=== PATIENT | male | born 1945 | race Caucasian/White ===

== ENCOUNTER 2016-07-30 21:21 | Inpatient (IN) | payer BC, OTHER ==
[~2016-07-30] VITALS: Ht 182.9 cm; Wt 92.1 kg
[~2016-07-30 21:21] MED LIST: CARV6.252 PO; CYAN500T PO; DIGO30TA PO; DIPHCRE TOP; DULO60CA44 PO; FERR-24 PO; FRS/40 PO; GLC/500 PO; HYDR-4383 PO; INSDGI SC; LEVO25TA5 PO; MORP15TA PO; NRN300 PO; NUTR-468; PANT1TAB48 PO; RIVA1TAB4 PO; SILD100T PO; TAMS0.4C38 PO; TRAZ50TA35 PO
[2016-07-30] MEDS ORDERED: ALBUT/IPRATROP 3MG/0.5MG NEB 3 ML VIAL INH STA (21:35)
[2016-07-30] MEDS ORDERED: METHYLPREDNISOLONE 125 MG VIAL IV STA (21:47)
[2016-07-30] MEDS ORDERED: MoRPHine SULFATE 4 MG/ML 1 ML CARP\\VIAL IV STA (21:47)
[2016-07-30] MEDS ORDERED: LEVAQUIN 750MG / 150ML D5W IV STA (22:06)
--- NOTE | 2016-07-30 22:12 | DIAGNOSTIC IMAGING REPORT ---
SINGLE VIEW CHEST CLINICAL HISTORY: Dyspnea. Atypical chest pain. FINDINGS: An AP, portable, upright chest radiograph is compared to study dated 04/30/2016. The examination is degraded by portable technique and patient rotation. The heart is enlarged and there is atherosclerotic calcification of the thoracic aorta. There is pulmonary vascular congestion. Perihilar airspace opacities are identified. Small pleural effusions are noted and there is bibasilar consolidation. No pneumothorax is seen. The skeletal structures are osteopenic. The bony thorax is grossly intact. Fusion hardware is present in the lower cervical region. IMPRESSION: 1. Cardiomegaly with evidence of congestive failure. 2. Perihilar airspace opacities are identified and likely represent interstitial edema. 3. There are small pleural effusions and bibasilar consolidation. This likely represents atelectasis. Cortical clinically for evidence of superimposed pneumonia. Electronically signed by: Patrice Velásquez M.D. 07/30/2016 10:11 PM Dictated Date/Time: 07/30/2016 10:10 PM
[2016-07-30 22:43] LABS: BASO % 0.1 %; BASO ABS # 0.01 K/uL (0-0.2); COMPLETE YES; EOS % 0.8 %; HEMATOCRIT 28.6 % (42-52); IG% 0.3 %; LYMPH % 8.2 %; LYMPH ABS # 0.92 K/uL (1.2-3.4); MEAN CELL VOLUME 84.4 fL (80-100); MEAN CORPUSCULAR HEMOGLOBIN 27.7 pg (25-34); MEAN CORPUSCULAR HGB CONC 32.9 g/dl (32-36); MEAN PLATELET VOLUME 9.3 fL (7.4-10.4); MONO % 2.4 %; NEUT % 88.2 %; PLATELET COUNT 216 K/uL (130-400); RED BLOOD COUNT 3.39 M/uL (4.7-6.1); WHITE BLOOD COUNT 11.18 K/uL (4.8-10.8)
[2016-07-30] MEDS ORDERED: PIPERACILLIN/TAZOBACTAM 4.5 GM/100ML D5W IV STA (22:44)
[2016-07-30 22:45] LABS: INR 1.8 (0.9-1.1); PARTIAL THROMBOPLASTIN RATIO 1.3; PROTHROMBIN TIME (PATIENT) 20.3 SECONDS (9.0-12.0)
[2016-07-30] MEDS ORDERED: CRFL PO (22:49)
[2016-07-30] MEDS ORDERED: CARV12.52 PO (22:49)
[2016-07-30] MEDS ORDERED: WARF3TAB6 PO (22:49)
[2016-07-30] MEDS ORDERED: INSP SQ (22:49)
[2016-07-30] MEDS ORDERED: ALBINS INH (22:49)
[2016-07-30] MEDS ORDERED: PRED10TA PO (22:49)
[2016-07-30] MEDS ORDERED: FURO-85 PO (22:49)
[2016-07-30] MEDS ORDERED: PLMINSR5 INH (22:49)
[2016-07-30] MEDS ORDERED: SODIENE PR (22:49)
[2016-07-30] MEDS ORDERED: PRLSR20 PO (22:49)
[2016-07-30] MEDS ORDERED: MOML PO (22:49)
[2016-07-30] MEDS ORDERED: ACET325T96 PO (22:49)
[2016-07-30] MEDS ORDERED: AMOX875T PO (22:49)
[2016-07-30] MEDS ORDERED: BISA10SU3 RE (22:49)
[2016-07-30] MEDS ORDERED: PARO1TAB27 PO (22:49)
[2016-07-30] MEDS ORDERED: INSDGIPEN SC (22:49)
[2016-07-30 22:51] LABS: ALT/SGPT 35 U/L (12-78); BLOOD UREA NITROGEN 13 mg/dl (7-18); BUN/CREATININE RATIO 17.6 (10-20); CALCIUM 7.5 mg/dl (8.5-10.1); CARBON DIOXIDE 32 mmol/L (21-32); CHLORIDE 98 mmol/L (98-107); CREATININE 0.72 mg/dl (0.60-1.40); GLUCOSE 340 mg/dl (70-99); POTASSIUM 4.7 mmol/L (3.5-5.1); SODIUM 137 mmol/L (136-145)
[2016-07-30] MEDS ORDERED: CALCIUM GLUCONATE 10% 10 ML VIAL IV STA (22:54)
--- NOTE | 2016-07-30 22:55 | EMERGENCY ROOM VISIT NOTE ---
ED Visit Note First contact with patient: 21:29 This Patient was discussed with the physician commercial lines assistant, SHAUN Schofield. The pertinent historical and physical exam findings were confirmed. I agree with the studies ordered and with the interpretations of these studies. I agree with the disposition and care plan.
[2016-07-30 22:58] LABS: ALKALINE PHOSPHATASE 142 U/L (45-117); AST/SGOT 17 U/L (15-37); CKMB/CK RATIO 8.6 (0-3.0)
[2016-07-30 23:05] LABS: BETA-HYDROXYBUTYRATE 0.95 mg/dL (0.2-2.81)
[2016-07-30 23:59] LABS: INFLUENZA A PCR Neg for Influ A (NEG); INFLUENZA B PCR Neg for Influ B (NEG)
[2016-07-31] VITALS (14 sets, daily range): BP systolic 100–149; BP diastolic 63–79; PULSE 65–104; TEMP 36.3–36.7; O2SAT 95–100; BMI 27.9; BMI 26.7
--- NOTE | 2016-07-31 00:41 | EMERGENCY ROOM VISIT NOTE ---
History First contact with patient: 21:29 Chief Complaint: PAIN (GENERALIZED) Stated Complaint: GENERALIZED PAIN, SOB History of Present Illness The patient is a 70 year old male who presents to the Emergency Room with complaints of generalized weakness, generalized pain, increasing shortness of breath for the past few days he was just discharged from [facility] for pneumonia and pleural effusions. He is currently on Augmentin. Patient was unable to care for himself at home and called 911. He states he is unable to ambulate. Patient states he normally wears oxygen 3-4 L. Patient states he feels horrible and is unable to care for himself. Patient denies chest pain, abdominal pain, vomiting, diarrhea, headache, neck stiffness. Decreased appetite. Review of Systems See HPI for pertinent positives & negatives. A total of 10 systems reviewed and were otherwise negative. Past Medical/Surgical History Medical Problems: (1) Diabetes (2) Neuropathy Atrial fibrillation on Coumadin, COPD requiring 3-4 L of oxygen, back surgery, GI bleed, BPH, peripheral neuropathy, anemia Social History Smoking Status: Current Every Day Smoker Alcohol Use: occasionally Drug Use: none Marital Status: single Housing Status: lives alone Occupation Status: retired Current/Historical Medications Scheduled Amoxicillin & Pot Clavulanate (Augmentin 875-125 mg), 1 TAB PO BID Bisacodyl (Dulcolax), 5 MG RE UD Budesonide (Pulmicort Respules 0.5MG/2ML), 2 ML INH BID Carvedilol (Coreg), 12.5 MG PO BID Cyanocobalamin (Vitamin B-12), 500 MCG PO DAILY Furosemide (Lasix), 20 MG PO TID Insulin Glargine (Lantus Solostar), 24 SC HS Insulin Human Regular (Novolin R), SQ ACHS Levothyroxine Sodium (Levothyroxine Sodium), 1 TAB PO DAILY Omeprazole (Prilosec), 20 MG PO DAILY Paroxetine (Paxil), 20 MG PO HS Prednisone Tab (Prednisone), 10 MG PO DAILY Sucralfate (Carafate), 10 ML PO ACHS Tamsulosin Hcl (Flomax), 1 CAP PO HS Warfarin Sod (Jantoven), 3 MG PO DAILY Scheduled PRN Acetaminophen Tab (Tylenol), 650 MG PO Q4H PRN for Pain or Fever Albuterol Sulf (Albuterol Sulfate), 3 ML INH Q4H PRN for SOB/Wheezing Magnesium Hydroxide (Milk Of Magnesia), 30 ML PO HS PRN for Constipation Sodium Phosphate/Biphosphate (Fleet Enema), 1 EA [place] DAILY PRN for Constipation Allergies Coded Allergies: No Known Allergies (Unverified , 04/30/16) Physical Exam Vital Signs Date Time Temp Pulse Resp B/P Pulse Ox O2 Delivery O2 Flow Rate FiO2 07/31/16 00:06 98 26 137/92 99 Nasal Cannula 2.0 07/30/16 22:29 105 22 149/98 98 Nasal Cannula 2.0 07/30/16 21:57 97 Nasal Cannula 2.0 07/30/16 21:57 97 Nasal Cannula 2.0 07/30/16 21:34 113 07/30/16 21:29 36.8 110 22 152/101 97 Nasal Cannula 2.0 Physical Exam VITALS: Vitals are noted on the nurse's note and reviewed by myself. Vital signs stable. GENERAL: Elderly male with audible wheeze working to breathe wearing oxygen, nondiaphoretic, well-developed well-nourished. SKIN: The skin was without rashes, erythema, edema, or bruising. There is no tenting of the skin. Capillary reflex less than 2 seconds. HEAD: Normocephalic atraumatic. EARS: External auditory canals clear, tympanic membranes pearly bruno without erythema or effusion bilaterally. EYES: Pupils equal round and reactive to light and accommodation. Conjunctivae without injection, sclerae without icterus. Extraocular movements intact. NOSE: Patent, turbinates without inflammation or discharge. No sinus tenderness. MOUTH: Mucous membranes mildly dry. Pharynx without erythema or exudate. Uvula midline. Airway patent. Tongue does not deviate. NECK: Supple without nuchal rigidity. No lymphadenopathy. No thyromegaly. Cervical spine is nontender. No JVD. HEART: Irregularly irregular mildly tachycardic LUNGS: Diffuse inspiratory and end expiratory wheezes, bi basilar rales. No retractions or accessory muscle use. ABDOMEN: Positive bowel sounds x 4. Normal tympanic percussion. Soft, nontender, without masses or organomegaly. Hamilton sign negative. No guarding or rebound tenderness. MUSCULOSKELETAL: No muscle erythema noted. NEURO: Patient was alert and oriented to person place and time. Normal sensation to light and sharp touch. No focal neurological deficits. Medical Decision & Procedures Laboratory Results 07/30/16 22:04 Red Blood Count 3.39, Mean Corpuscular Volume 84.4, Mean Corpuscular Hemoglobin 27.7, Mean Corpuscular Hemoglobin Concent 32.9, Mean Platelet Volume 9.3, Neutrophils (%) (Auto) 88.2, Lymphocytes (%) (Auto) 8.2, Monocytes (%) (Auto) 2.4, Eosinophils (%) (Auto) 0.8, Basophils (%) (Auto) 0.1, Neutrophils # (Auto) 9.86, Lymphocytes # (Auto) 0.92, Monocytes # (Auto) 0.27, Eosinophils # (Auto) 0.09, Basophils # (Auto) 0.01 07/30/16 22:04 Test 07/30/16 22:04 07/30/16 22:05 07/30/16 22:13 White Blood Count 11.18 K/uL (4.8-10.8) Red Blood Count 3.39 M/uL (4.7-6.1) Hemoglobin 9.4 g/dL (14.0-18.0) Hematocrit 28.6 % (42-52) Mean Corpuscular Volume 84.4 fL (80-100) Mean Corpuscular Hemoglobin 27.7 pg (25-34) Mean Corpuscular Hemoglobin Concent 32.9 g/dl (32-36) Platelet Count 216 K/uL (130-400) Mean Platelet Volume 9.3 fL (7.4-10.4) Neutrophils (%) (Auto) 88.2 % Lymphocytes (%) (Auto) 8.2 % Monocytes (%) (Auto) 2.4 % Eosinophils (%) (Auto) 0.8 % Basophils (%) (Auto) 0.1 % Neutrophils # (Auto) 9.86 K/uL (1.4-6.5) Lymphocytes # (Auto) 0.92 K/uL (1.2-3.4) Monocytes # (Auto) 0.27 K/uL (0.11-0.59) Eosinophils # (Auto) 0.09 K/uL (0-0.5) Basophils # (Auto) 0.01 K/uL (0-0.2) RDW Standard Deviation 48.4 fL (36.4-46.3) RDW Coefficient of Variation 15.8 % (11.5-14.5) Immature Granulocyte % (Auto) 0.3 % Immature Granulocyte # (Auto) 0.03 K/uL (0.00-0.02) Prothrombin Time 20.3 SECONDS (9.0-12.0) Prothromb Time International Ratio 1.8 (0.9-1.1) Activated Partial Thromboplast Time 32.7 SECONDS (21.0-31.0) Partial Thromboplastin Ratio 1.3 Anion Gap 7.0 mmol/L (3-11) Est Creatinine Clear Calc Drug Dose 111.7 ml/min Estimated GFR () 108.8 Estimated GFR (Non- 93.9 BUN/Creatinine Ratio 17.6 (10-20) Calcium Level 7.5 mg/dl (8.5-10.1) Magnesium Level 2.0 mg/dl (1.8-2.4) Total Bilirubin 0.2 mg/dl (0.2-1) Direct Bilirubin < 0.1 mg/dl (0-0.2) Aspartate Amino Transf (AST/SGOT) 17 U/L (15-37) Alanine Aminotransferase (ALT/SGPT) 35 U/L (12-78) Alkaline Phosphatase 142 U/L (45-117) Total Creatine Kinase 72 U/L (39-308) Creatine Kinase MB 6.2 ng/ml (0.5-3.6) Creatine Kinase MB Ratio 8.6 (0-3.0) Troponin I 0.029 ng/ml (0-0.045) Pro-B-Type Natriuretic Peptide 2250 pg/ml (0-900) Total Protein 5.4 gm/dl (6.4-8.2) Albumin 2.4 gm/dl (3.4-5.0) Lipase 203 U/L (73-393) Beta-Hydroxybutyric Acid 0.95 mg/dL (0.2-2.81) Digoxin Level < 0.1 ng/ml (0.8-2.0) Influenza Type A (RT-PCR) Neg for Influ A (NEG) Influenza Type B (RT-PCR) Neg for Influ B (NEG) Bedside Lactic Acid Venous 1.87 mmol/L (0.90-1.70) Medications Administered Medications (Trade) Dose Ordered Sig/Sujatha Route Start Time Stop Time Status Last Admin Dose Admin Albuterol/ Ipratropium (Duoneb) 3 ml NOW STAT INH 07/30/16 21:35 07/30/16 21:42 DC 07/30/16 21:58 3 ML Methylprednisolone Sodium Succinate (Solu-Medrol IV) 125 mg NOW STAT IV 07/30/16 21:47 07/30/16 21:50 DC 07/30/16 22:05 125 MG Morphine Sulfate (MoRPHine SULFATE INJ) 4 mg NOW STAT IV 07/30/16 21:47 07/30/16 21:50 DC 07/30/16 22:05 4 MG Levofloxacin (Levaquin / D5W) 750 mg NOW STAT IV 07/30/16 22:06 07/30/16 22:07 DC 07/30/16 22:29 750 MG Piperacillin Sod/ Tazobactam Sod (Zosyn Iv) 4.5 gm NOW STAT IV 07/30/16 22:44 07/30/16 22:46 DC 07/31/16 00:01 4.5 GM Calcium Gluconate (Calcium Gluconate 10%) 1,000 mg NOW STAT IV 07/30/16 22:54 07/30/16 22:55 DC 07/30/16 23:32 1,000 MG ED Course Prior records/ancillary studies reviewed. Triage Nursing notes reviewed. Additional history obtained from the family. The patient's history was concerning for respiratory difficulties. Differential diagnosis: Etiologies such as infections, reactive airway disease, pneumonia, pneumothorax , COPD, CHF, cardiac ischemia, pulmonary embolism, musculoskeletal, gastrointestinal, as well as others were entertained. Physical examination: As above. ER treatment provided: Nebulizer, morphine, Solu Medrol, Levaquin, Zosyn On reassessment the patient felt better. Diagnostic interpretation by me: The electrocardiogram was regularly irregular with no acute ST-T wave changes. Ventricular rate of 112, impression atrial fibrillation with RVR interpreted by myself The labs revealed leukocytosis, mild anemia, elevated lactic acid. Hyperglycemia without DKA. Negative flu I did obtain the records from [place] and patient's white count has increased. He had a pleurocentesis done the other day and culture results are still pending Imaging studies: Chest x-ray as above. SINGLE VIEW CHEST CLINICAL HISTORY: Dyspnea. Atypical chest pain. FINDINGS: An AP, portable, upright chest radiograph is compared to study dated 04/30/2016. The examination is degraded by portable technique and patient rotation. The heart is enlarged and there is atherosclerotic calcification of the thoracic aorta. There is pulmonary vascular congestion. Perihilar airspace opacities are identified. Small pleural effusions are noted and there is bibasilar consolidation. No pneumothorax is seen. The skeletal structures are osteopenic. The bony thorax is grossly intact. Fusion hardware is present in the lower cervical region. IMPRESSION: 1. Cardiomegaly with evidence of congestive failure. 2. Perihilar airspace opacities are identified and likely represent interstitial edema. 3. There are small pleural effusions and bibasilar consolidation. This likely represents atelectasis. Cortical clinically for evidence of superimposed pneumonia. Electronically signed by: Patrice Velásquez M.D. Consultation: A consultation was placed with Dr Poon, hospitalist. The case was discussed and diagnostics were reviewed. The patient was evaluated in the ER for further treatment. This appears to be consistent with pneumonia and COPD exacerbation. Patient was still working to breathe. He had a CTA done yesterday that was negative for PE per chart review from [place]. I feel like it is unlikely that he would have a PE now despite his INR be mildly subtherapeutic. His symptoms seem most consistent with pneumonia and COPD. He felt better to be medicated as above. He is unable to care for himself at home. He is quite weak. He will be evaluated by medicine for possible admission. He had a leukocytosis and elevated lactic. Broad spectrum antibiotics were written for the cultures are pending. By the evaluation outlined above emergent etiologies such as CHF, cardiac ischemia, pulmonary embolism, pneumothorax, musculoskeletal, serious bacterial infections, as well as others were deemed relatively unlikely. The pt informed about the findings as listed above. All questions were answered and pleased with the treatment. case reviewed with my Attending Medical Decision As above [place] Drug Monitoring Program Search Results: patient reviewed within database, see additional documentation (patient has received multiple narcotics in the past) Impression Primary Impression: Pneumonia Additional Impressions: COPD exacerbation Hyperglycemia Anemia Subtherapeutic international normalized ratio (INR) Departure Information Dispostion Being Evaluated By Hospitalist Condition FAIR Referrals No Doctor, Assigned (PCP) Patient Instructions My [facility] Problem Qualifiers Primary Impression: Pneumonia Pneumonia type: due to unspecified organism Laterality: bilateral Lung location: unspecified part of lung Qualified Codes: J18.9 - Pneumonia, unspecified organism
[2016-07-31] MEDS ORDERED: ALUMINUM/MAGNESIUM/SIMETH (MAALOX MAX) 30 ML UDC PO PRN (01:15)
[2016-07-31] MEDS ORDERED: ONDANSETRON INJ 2 MG/ML 2 ML VIAL IV PRN (01:15)
[2016-07-31] MEDS ORDERED: ALBUTEROL 0.083% NEBU SOLN 3 ML VIAL INH PRN (01:30)
[2016-07-31] MEDS ORDERED: SOD PHOSPHATE/SOD BIPHOSPHATE ENEMA 132 ML BTL PR PRN (01:30)
[2016-07-31] MEDS ORDERED: BISACODYL 10 MG SUPP PR PRN (01:30)
[2016-07-31] MEDS ORDERED: ACETAMINOPHEN 325 MG TAB PO PRN (01:30)
--- NOTE | 2016-07-31 01:39 | History and Physical ---
History & Physical Date & Time of Service: Jul 31, 2016 at 01:34 Chief Complaint: Generalized Pain, Sob Primary Care Physician: No Doctor, Assigned History of Present Illness Source: patient, clinic records, hospital records This is a 70 yo m that is presenting to us with worsening generalize pain, SOBOE with a h/o COPD, recurrent transudative pleural effusions, diastolic CHF, poorly controlled DM. He states that he was recently at [place] (jul 29 2016) and he was found to have PNA and a return of his recurrent left pleural effusion. He was admitted and placed on Zosyn and Levaquin and descalated to Augmentin. He was d/c on the . He was also d/c with 10 mg of prednisone. He states that he is "just getting frustrated because I don't feel I can breathe and my hands hurt so much from my neuropathy. I just feel so agitated and I need help." As per hospital records, thoracentesis results were as follows: Volume- 600 , WBC-52, RBC- 109, Nt -41, Lymph - 14, Kerr- 20, Mesoth- 3, Macro- 22, Glu -107 , LDH- 53, Pro- 0.8. He mentions that this SOBOE has been significantly worsening over the past two months and he has needed multipl thoracentesis to drain the effusions. He also notes that he does have CHF which is treated with lasix and carvedilol. He states that [facility] however he prefers to not take his insulin at home. he has a left sided amputation. 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 Past Medical/Surgical History Medical Problems: (1) Diabetes Status: Chronic (2) Neuropathy Status: Chronic COPD CHF - diastolic Hypothyroidism GI Bleed PVD CVA A Fibb Family History No pertinent family history Social History Smoking Status: Current Every Day Smoker Drug Use: none Marital Status: single Occupational Status: retired Allergies Coded Allergies: No Known Allergies (Unverified , 04/30/16) Home Medications Scheduled Amoxicillin & Pot Clavulanate (Augmentin 875-125 mg), 1 TAB PO BID Bisacodyl (Dulcolax), 5 MG RE UD Budesonide (Pulmicort Respules 0.5MG/2ML), 2 ML INH BID Carvedilol (Coreg), 12.5 MG PO BID Cyanocobalamin (Vitamin B-12), 500 MCG PO DAILY Furosemide (Lasix), 20 MG PO TID Insulin Glargine (Lantus Solostar), 24 SC HS Insulin Human Regular (Novolin R), SQ ACHS Levothyroxine Sodium (Levothyroxine Sodium), 1 TAB PO DAILY Omeprazole (Prilosec), 20 MG PO DAILY Paroxetine (Paxil), 20 MG PO HS Prednisone Tab (Prednisone), 10 MG PO DAILY Sucralfate (Carafate), 10 ML PO ACHS Tamsulosin Hcl (Flomax), 1 CAP PO HS Warfarin Sod (Jantoven), 3 MG PO DAILY Scheduled PRN Acetaminophen Tab (Tylenol), 650 MG PO Q4H PRN for Pain or Fever Albuterol Sulf (Albuterol Sulfate), 3 ML INH Q4H PRN for SOB/Wheezing Magnesium Hydroxide (Milk Of Magnesia), 30 ML PO HS PRN for Constipation Sodium Phosphate/Biphosphate (Fleet Enema), 1 EA [place] DAILY PRN for Constipation Review of Systems Constitutional: No fever Eyes: No worsening of vision ENT: No hearing loss Respiratory: + cough, + dyspnea at rest, + dyspnea on exertion, + shortness of breath, + wheezing, No sputum Cardiovascular: No chest pain Abdomen: No constipation, No diarrhea, No nausea, No pain, No vomiting Musculoskeletal: + joint pain Genitourinary - Male: No hematuria Neurologic: + weakness, No balance problems, No memory loss, No numbness/ tingling Endocrine: + fatigue Hematologic / Lymphatic: + abnormal bleeding/bruising Physical Exam Vital Signs Date Time Temp Pulse Resp B/P Pulse Ox O2 Delivery O2 Flow Rate FiO2 07/31/16 01:17 80 07/31/16 01:00 84 22 100/79 97 Nasal Cannula 2.0 07/31/16 00:06 98 26 137/92 99 Nasal Cannula 2.0 07/30/16 22:29 105 22 149/98 98 Nasal Cannula 2.0 07/30/16 21:57 97 Nasal Cannula 2.0 07/30/16 21:57 97 Nasal Cannula 2.0 07/30/16 21:34 113 07/30/16 21:29 36.8 110 22 152/101 97 Nasal Cannula 2.0 General Appearance: WD/WN, no apparent distress Head: normocephalic, atraumatic Eyes: normal inspection ENT: normal ENT inspection Neck: supple Respiratory/Chest: no respiratory distress, no accessory muscle use, + decreased breath sounds (bilat bases), + crackles (right base), + wheezing ( throughout) Cardiovascular: regular rate, rhythm, no murmur Abdomen/GI: normal bowel sounds, non tender, soft Back: normal inspection Extremities/Musculoskelatal: no calf tenderness, no pedal edema, normal range of motion Neurologic/Psych: alert, oriented x 3 Skin: normal color, warm/dry, no rash Lymphatic: no adenopathy Diagnostics Laboratory Results Results Past 24 Hours Test 07/30/16 22:04 07/30/16 22:05 07/30/16 22:13 07/31/16 01:31 Range/Units White Blood Count 11.18 4.8-10.8 K/uL Red Blood Count 3.39 4.7-6.1 M/uL Hemoglobin 9.4 14.0-18.0 g/dL Hematocrit 28.6 42-52 % Mean Corpuscular Volume 84.4 80-100 fL Mean Corpuscular Hemoglobin 27.7 25-34 pg Mean Corpuscular Hemoglobin Concent 32.9 32-36 g/dl Platelet Count 216 130-400 K/uL Mean Platelet Volume 9.3 7.4-10.4 fL Neutrophils (%) (Auto) 88.2 % Lymphocytes (%) (Auto) 8.2 % Monocytes (%) (Auto) 2.4 % Eosinophils (%) (Auto) 0.8 % Basophils (%) (Auto) 0.1 % Neutrophils # (Auto) 9.86 1.4-6.5 K/uL Lymphocytes # (Auto) 0.92 1.2-3.4 K/uL Monocytes # (Auto) 0.27 0.11-0.59 K/uL Eosinophils # (Auto) 0.09 0-0.5 K/uL Basophils # (Auto) 0.01 0-0.2 K/uL RDW Standard Deviation 48.4 36.4-46.3 fL RDW Coefficient of Variation 15.8 11.5-14.5 % Immature Granulocyte % (Auto) 0.3 % Immature Granulocyte # (Auto) 0.03 0.00-0.02 K/uL Prothrombin Time 20.3 9.0-12.0 SECONDS Prothromb Time International Ratio 1.8 0.9-1.1 Activated Partial Thromboplast Time 32.7 21.0-31.0 SECONDS Partial Thromboplastin Ratio 1.3 Sodium Level 137 136-145 mmol/L Potassium Level 4.7 3.5-5.1 mmol/L Chloride Level 98 98-107 mmol/L Carbon Dioxide Level 32 21-32 mmol/L Anion Gap 7.0 3-11 mmol/L Blood Urea Nitrogen 13 7-18 mg/dl Creatinine 0.72 0.60-1.40 mg/dl Est Creatinine Clear Calc Drug Dose 111.7 ml/min Estimated GFR () 108.8 Estimated GFR (Non- 93.9 BUN/Creatinine Ratio 17.6 10-20 Random Glucose 340 70-99 mg/dl Calcium Level 7.5 8.5-10.1 mg/dl Magnesium Level 2.0 1.8-2.4 mg/dl Total Bilirubin 0.2 0.2-1 mg/dl Direct Bilirubin < 0.1 0-0.2 mg/dl Aspartate Amino Transf (AST/SGOT) 17 15-37 U/L Alanine Aminotransferase (ALT/SGPT) 35 12-78 U/L Alkaline Phosphatase 142 45-117 U/L Total Creatine Kinase 72 39-308 U/L Creatine Kinase MB 6.2 0.5-3.6 ng/ml Creatine Kinase MB Ratio 8.6 0-3.0 Troponin I 0.029 0-0.045 ng/ml Pro-B-Type Natriuretic Peptide 2250 0-900 pg/ml Total Protein 5.4 6.4-8.2 gm/dl Albumin 2.4 3.4-5.0 gm/dl Lipase 203 73-393 U/L Beta-Hydroxybutyric Acid 0.95 0.2-2.81 mg/dL Digoxin Level < 0.1 0.8-2.0 ng/ml Influenza Type A (RT-PCR) Neg for Influ A NEG Influenza Type B (RT-PCR) Neg for Influ B NEG Bedside Lactic Acid Venous 1.87 0.90-1.70 mmol/L Microbiology Results 07/30/16 Blood Culture, Received Pending 07/30/16 Blood Culture, Received Pending Diagnostic Radiology Ct - [place] - No pulmonary emboli - central pulmonary vasculature enlarged - bilat pleural effusions- mod - coronary artery calcification - mitral annular calcification - bilat lower lobe atelectasis or consolidation SINGLE VIEW CHEST CLINICAL HISTORY: Dyspnea. Atypical chest pain. FINDINGS: An AP, portable, upright chest radiograph is compared to study dated 04/30/2016. The examination is degraded by portable technique and patient rotation. The heart is enlarged and there is atherosclerotic calcification of the thoracic aorta. There is pulmonary vascular congestion. Perihilar airspace opacities are identified. Small pleural effusions are noted and there is bibasilar consolidation. No pneumothorax is seen. The skeletal structures are osteopenic. The bony thorax is grossly intact. Fusion hardware is present in the lower cervical region. IMPRESSION: 1. Cardiomegaly with evidence of congestive failure. 2. Perihilar airspace opacities are identified and likely represent interstitial edema. 3. There are small pleural effusions and bibasilar consolidation. This likely represents atelectasis. Cortical clinically for evidence of superimposed pneumonia. Impression Assessment and Plan Documented By: Aniceto Poon This is a 70 yo m with recurrent bilat pleural effusions, COPD, Dm, CHF that is presenting to us with acute hypoxic respiratory failure requiring O2. Acute hypoxic respiratory failure secondary to PNA vs COPD exacerbations vs bilat pleural effusions - please see below for individual management Acute on chronic COPD exacerbation - Duoneb with prn albuterol - continue Pulmicort - Prednisone 50 mg daily- deescalate prn - received 125 mg of Solumedrol in the ED - consider additionally adding tiotropium or something similar on d/c - consult pulmonary PNA , hospital acquired - MRSA/ VRE - Cxr repeat in am - CBC in am - continue Augmentin and adjust medication based on clinical picture, currently stable Recurrent bilat pleural effusions possibly secondary to acute on chronic diastolic CHF vs alternative process such as malignancy - Echo - consider consult with thoracic surgery Chronic Right heel ulceration most likely secondary to neuropathy Wound care consult - consider additionally adding agent such as gabapentin for pain control Uncontrolled DM II - inuslin ISS and lantus - ac/hs BSG Recent H/O severe GI bleed requiring blood transfusion - continue pantoprazole and sucralfate Depression - continue paroxetine PAF - continue his warfarin @ 3 mg - recheck INR in am BPH - continue tamsulosin DVT Prophylaxis warfarin Resident Physician Supervision Note: I was present with [Name of resident] during the history and exam. I discussed the case with the resident and agree with the findings and plan as documented in the note. Any exceptions or clarifications are listed here: Pt seen/examined Clinically he is not volume overloaded at present - lung exam does reveal B/L crackles/wheezing and decreased air at bases Pt is taking Augmentin for PNM diagnosed at [facility] admits to chronic noncompliance for which he blames poor medical care at the [facility] P: Pt is unlikely to improve by continued smoking and medical noncompliance and has requested a degree of placement - assisted living at least We will continue Augmentin and treat for COPD exacerbation As he has what may be reaccumulating effusions, we will also consult Pulmonology as he isnot improving and will require long-term f/u regardless Above discussed with pt and resident Pt Level of Care Telemetry VTE Prophylaxis VTE Risk Assessment Done? Y/N: Yes Risk Level: Moderate Given or contraindicated: Warfarin (Coumadin) Social Service Consult None Apply, Receiving Home Health Note Total Time: Critical Care 30 - 74 minutes
[2016-07-31] MEDS ORDERED: INSULIN GLARGINE SOLOSTAR 100 UNITS/ML 3 ML PEN SC SCH (02:30)
[2016-07-31] MEDS ORDERED: PHARMACY GLYCEMIC MGMT CONSULT PRN (02:39)
[2016-07-31] MEDS ORDERED: INSULIN REGULAR 5 UNITS in SYRINGE 4.95 ML IV SCH (02:45)
[2016-07-31] MEDS: INSULIN ASPART 100 UNITS/ML 3 ML PEN SC SCH ×5 (03:34→22:22)
[2016-07-31 03:39] LABS: BETA-HYDROXYBUTYRATE 1.91 mg/dL (0.2-2.81)
[2016-07-31] MEDS ORDERED: METHYLPREDNISOLONE IV 40 MG in SYRINGE 0 ML IV SCH (06:00)
[2016-07-31] MEDS: LEVOTHYROXINE 25 MCG TAB PO SCH (06:14)
--- NOTE | 2016-07-31 07:25 | DIAGNOSTIC IMAGING REPORT ---
CHEST ONE VIEW PORTABLE CLINICAL HISTORY: soboles pain COMPARISON STUDY: 07/30/2016 FINDINGS: Mild stable cardiomegaly. Subtle increase in density of the hemithoracic and perihilar regions bilaterally. Early developing pulmonary edema is considered. Trace pleural fluid left base. IMPRESSION: Findings suggesting early and/or developing pulmonary edematous change. Trace pleural fluid left base. Electronically signed by: Kaleb Saldaña M.D. 07/31/2016 7:24 AM Dictated Date/Time: 07/31/2016 7:23 AM
[2016-07-31] MEDS: ALBUT/IPRATROP 3MG/0.5MG NEB 3 ML VIAL INH SCH ×4 (07:28→23:10)
[2016-07-31] MEDS ORDERED: AMOXICILLIN/CLAVULANATE TAB 875 MG TAB PO SCH (07:30)
[2016-07-31 07:46] LABS: ESTIMATED AVERAGE GLUCOSE 171 mg/dl; HA1C FLAG Normal (Normal)
[2016-07-31] MEDS ORDERED: ALBUT/IPRATROP 3MG/0.5MG NEB 3 ML VIAL INH SCH (08:00)
--- NOTE | 2016-07-31 08:03 | Family Medicine Progress Note ---
Progress Note Date of Service Jul 31, 2016. Subjective Pt evaluation today including: conversation w/ patient, physical exam, chart review, lab review Voiding: krueger catheter in place No acute overnight events. He states that his breathing has improved since yesterday. Continues to complain of neuropathic pain of UE and LE. He complains of cough but not able to bring up anything. Denies chest pain, nausea, vomiting , abdominal pain, dizziness, headache, or any other additional complaints. Constitutional: No fever Respiratory: + cough, + shortness of breath, No wheezing Cardiovascular: No chest pain Abdomen: No constipation, No diarrhea, No nausea, No pain, No vomiting Male : No dysuria Neurologic: + problem reported (complains of neuropathic pain on b/l UE and LE) Medications Current Inpatient Medications Medications (Trade) Dose Ordered Sig/Sujatha Route Start Time Stop Time Status Last Admin Dose Admin Acetaminophen (Tylenol Tab) 650 mg Q4H PRN PO 07/31/16 01:15 08/30/16 01:14 Al Hydrox/Mg Hydrox/Simethicone (Maalox Max Susp) 15 ml Q4H PRN PO 07/31/16 01:15 08/30/16 01:14 Ondansetron HCl (Zofran Inj) 4 mg Q6H PRN IV 07/31/16 01:15 08/30/16 01:14 Nitroglycerin (Nitrostat Tab) 0.4 mg UD PRN SL 07/31/16 01:15 08/30/16 01:14 Morphine Sulfate (MoRPHine SULFATE INJ) 2 mg Q30M PRN IV 07/31/16 01:15 08/14/16 01:14 Albuterol Sulfate (Ventolin 0.083% 2.5MG/3ML Neb) 2.5 mg Q4H PRN INH 07/31/16 01:30 08/30/16 01:29 Bisacodyl (Dulcolax Supp) 5 mg PRN PRN NV 07/31/16 01:30 08/30/16 01:29 Budesonide (Pulmicort Respules 0.5MG/ 2ML Neb Soln) 1 mg BIDR INH 07/31/16 08:00 08/30/16 07:59 07/31/16 11:35 1 MG Carvedilol (Coreg Tab) 12.5 mg BID PO 07/31/16 09:00 08/30/16 08:59 07/31/16 08:19 12.5 MG Cyanocobalamin (Vitamin B-12 Tab) 500 mcg DAILY PO 07/31/16 09:00 08/30/16 08:59 07/31/16 08:20 500 MCG Furosemide (Lasix Tab) 20 mg TID PO 07/31/16 09:00 08/30/16 08:59 07/31/16 14:56 20 MG Levothyroxine Sodium (Synthroid Tab) 25 mcg DAILYBB PO 07/31/16 06:00 08/30/16 05:59 07/31/16 06:14 25 MCG Magnesium Hydroxide (Milk Of Magnesia Susp) 30 ml HS PRN PO 07/31/16 01:30 08/30/16 01:29 Paroxetine HCl (pAXil TAB) 20 mg HS PO 07/31/16 21:00 08/30/16 20:59 Sodium Biphosphate/ Sodium Phosphate (Fleet Enema) 1 ml DAILY PRN NV 07/31/16 01:30 08/30/16 01:29 Sucralfate (Carafate Susp) 1 gm ACHS PO 07/31/16 07:00 08/30/16 06:59 07/31/16 17:07 1 GM Tamsulosin HCl (Flomax Cap) 0.4 mg HS PO 07/31/16 21:00 08/30/16 20:59 Warfarin Sodium (Coumadin Tab) 3 mg DAILY@1600 PO 07/31/16 16:00 08/30/16 15:59 07/31/16 17:07 3 MG Insulin Aspart (novoLOG ASPART) SLIDING SCALE G... ACHS SC 07/31/16 02:30 08/30/16 02:29 07/31/16 17:13 8 UNITS Albuterol/ Ipratropium (Duoneb) 3 ml Q6R INH 07/31/16 03:00 08/30/16 02:59 07/31/16 14:28 3 ML Miscellaneous Information (Consult Glycemic Management Pharmacy) 1 ea UD PRN N/A 07/31/16 02:39 08/30/16 02:38 Amoxicillin/ Clavulanate Potassium 875 mg 875 mg BIDM PO 07/31/16 07:30 08/07/16 07:29 07/31/16 17:06 875 MG Azithromycin/ Dextrose (Zithromax IV/D5 250ml) 252.5 ml @ 125 mls/hr QD@08 IV 08/01/16 08:00 08/08/16 07:59 Insulin Glargine (Lantus Solostar Pen) 15 unit BID SC 07/31/16 12:00 08/30/16 11:59 07/31/16 12:01 15 UNIT Insulin Aspart (novoLOG ASPART) SLIDING SCALE G... 0000,0400 SC 08/01/16 00:00 08/31/16 00:00 Miconazole Nitrate (Desenex Powder) 1 appln PRN PRN EXT 07/31/16 11:45 08/30/16 11:44 Pantoprazole Sodium (Protonix Tab) 40 mg QAM PO 08/01/16 09:00 08/31/16 08:59 Gabapentin (Neurontin Cap) 300 mg BID PO 07/31/16 21:00 08/30/16 20:59 Prednisone (PredniSONE TAB) 50 mg DAILY PO 08/01/16 09:00 08/31/16 08:59 Objective Vital Signs Date Time Temp Pulse Resp B/P Pulse Ox O2 Delivery O2 Flow Rate FiO2 07/31/16 20:05 36.7 65 18 106/71 97 Room Air 07/31/16 14:28 83 18 99 Nasal Cannula 3.0 07/31/16 12:00 96 Nasal Cannula 4.0 07/31/16 11:43 36.4 87 20 100/69 100 Nasal Cannula 4.0 87 07/31/16 11:38 86 20 99 Nasal Cannula 2.0 07/31/16 08:00 96 Nasal Cannula 4.0 07/31/16 07:37 36.3 97 20 149/76 100 Nasal Cannula 3.0 97 07/31/16 03:11 36.3 70 17 137/77 100 Nasal Cannula 4.0 07/31/16 01:52 36.6 78 22 134/79 97 Nasal Cannula 4.0 07/31/16 01:40 78 19 130/86 96 07/31/16 01:17 80 07/31/16 01:00 84 22 100/79 97 Nasal Cannula 2.0 07/31/16 00:06 98 26 137/92 99 Nasal Cannula 2.0 07/30/16 22:29 105 22 149/98 98 Nasal Cannula 2.0 07/30/16 21:57 97 Nasal Cannula 2.0 07/30/16 21:57 97 Nasal Cannula 2.0 07/30/16 21:34 113 07/30/16 21:29 36.8 110 22 152/101 97 Nasal Cannula 2.0 Physical Exam General Appearance: + mild distress Neck: supple, trachea midline Respiratory/Chest: chest non-tender, + respiratory distress, + decreased breath sounds, + crackles (mostly noted at the base) Cardiovascular: regular rate, rhythm Abdomen: normal bowel sounds, non tender, soft Extremities: non-tender, + pedal edema (trace of edema on the right and 1+ on the left below the knee), + pertinent finding (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, also don't have 4th digit of right hand) Neurologic/Psychiatric: alert, normal mood/affect, oriented x 3 Skin: warm/dry, + pertinent finding (right heel ulcer) Laboratory Results Results Past 24 Hours Test 07/30/16 22:04 07/30/16 22:05 07/30/16 22:13 07/31/16 01:58 Range/Units White Blood Count 11.18 4.8-10.8 K/uL Red Blood Count 3.39 4.7-6.1 M/uL Hemoglobin 9.4 14.0-18.0 g/dL Hematocrit 28.6 42-52 % Mean Corpuscular Volume 84.4 80-100 fL Mean Corpuscular Hemoglobin 27.7 25-34 pg Mean Corpuscular Hemoglobin Concent 32.9 32-36 g/dl Platelet Count 216 130-400 K/uL Mean Platelet Volume 9.3 7.4-10.4 fL Neutrophils (%) (Auto) 88.2 % Lymphocytes (%) (Auto) 8.2 % Monocytes (%) (Auto) 2.4 % Eosinophils (%) (Auto) 0.8 % Basophils (%) (Auto) 0.1 % Neutrophils # (Auto) 9.86 1.4-6.5 K/uL Lymphocytes # (Auto) 0.92 1.2-3.4 K/uL Monocytes # (Auto) 0.27 0.11-0.59 K/uL Eosinophils # (Auto) 0.09 0-0.5 K/uL Basophils # (Auto) 0.01 0-0.2 K/uL RDW Standard Deviation 48.4 36.4-46.3 fL RDW Coefficient of Variation 15.8 11.5-14.5 % Immature Granulocyte % (Auto) 0.3 % Immature Granulocyte # (Auto) 0.03 0.00-0.02 K/uL Prothrombin Time 20.3 9.0-12.0 SECONDS Prothromb Time International Ratio 1.8 0.9-1.1 Activated Partial Thromboplast Time 32.7 21.0-31.0 SECONDS Partial Thromboplastin Ratio 1.3 Sodium Level 137 136-145 mmol/L Potassium Level 4.7 3.5-5.1 mmol/L Chloride Level 98 98-107 mmol/L Carbon Dioxide Level 32 21-32 mmol/L Anion Gap 7.0 3-11 mmol/L Blood Urea Nitrogen 13 7-18 mg/dl Creatinine 0.72 0.60-1.40 mg/dl Est Creatinine Clear Calc Drug Dose 111.7 ml/min Estimated GFR () 108.8 Estimated GFR (Non- 93.9 BUN/Creatinine Ratio 17.6 10-20 Random Glucose 340 70-99 mg/dl Estimated Average Glucose 171 mg/dl Hemoglobin A1c 7.6 4.5-5.6 % Calcium Level 7.5 8.5-10.1 mg/dl Magnesium Level 2.0 1.8-2.4 mg/dl Total Bilirubin 0.2 0.2-1 mg/dl Direct Bilirubin < 0.1 0-0.2 mg/dl Aspartate Amino Transf (AST/SGOT) 17 15-37 U/L Alanine Aminotransferase (ALT/SGPT) 35 12-78 U/L Alkaline Phosphatase 142 45-117 U/L Total Creatine Kinase 72 39-308 U/L Creatine Kinase MB 6.2 0.5-3.6 ng/ml Creatine Kinase MB Ratio 8.6 0-3.0 Troponin I 0.029 0-0.045 ng/ml Pro-B-Type Natriuretic Peptide 2250 0-900 pg/ml Total Protein 5.4 6.4-8.2 gm/dl Albumin 2.4 3.4-5.0 gm/dl Lipase 203 73-393 U/L Beta-Hydroxybutyric Acid 0.95 0.2-2.81 mg/dL Digoxin Level < 0.1 0.8-2.0 ng/ml Influenza Type A (RT-PCR) Neg for Influ A NEG Influenza Type B (RT-PCR) Neg for Influ B NEG Bedside Lactic Acid Venous 1.87 0.90-1.70 mmol/L Bedside Glucose 432 70-99 mg/dl Test 07/31/16 02:45 07/31/16 03:19 07/31/16 06:16 07/31/16 11:20 Range/Units Random Glucose 414 70-99 mg/dl Beta-Hydroxybutyric Acid 1.91 0.2-2.81 mg/dL Bedside Glucose 419 263 415 70-99 mg/dl Test 07/31/16 16:18 07/31/16 18:00 Range/Units Bedside Glucose 151 70-99 mg/dl White Blood Count 12.32 4.8-10.8 K/uL Red Blood Count 3.27 4.7-6.1 M/uL Hemoglobin 9.0 14.0-18.0 g/dL Hematocrit 27.7 42-52 % Mean Corpuscular Volume 84.7 80-100 fL Mean Corpuscular Hemoglobin 27.5 25-34 pg Mean Corpuscular Hemoglobin Concent 32.5 32-36 g/dl Platelet Count 193 130-400 K/uL Mean Platelet Volume 9.0 7.4-10.4 fL Neutrophils (%) (Auto) 90.0 % Lymphocytes (%) (Auto) 3.7 % Monocytes (%) (Auto) 5.9 % Eosinophils (%) (Auto) 0.0 % Basophils (%) (Auto) 0.0 % Neutrophils # (Auto) 11.09 1.4-6.5 K/uL Lymphocytes # (Auto) 0.45 1.2-3.4 K/uL Monocytes # (Auto) 0.73 0.11-0.59 K/uL Eosinophils # (Auto) 0.00 0-0.5 K/uL Basophils # (Auto) 0.00 0-0.2 K/uL RDW Standard Deviation 48.6 36.4-46.3 fL RDW Coefficient of Variation 15.6 11.5-14.5 % Immature Granulocyte % (Auto) 0.4 % Immature Granulocyte # (Auto) 0.05 0.00-0.02 K/uL Sodium Level 138 136-145 mmol/L Potassium Level 4.4 3.5-5.1 mmol/L Chloride Level 100 98-107 mmol/L Carbon Dioxide Level 33 21-32 mmol/L Anion Gap 5.0 3-11 mmol/L Blood Urea Nitrogen 14 7-18 mg/dl Creatinine 0.64 0.60-1.40 mg/dl Est Creatinine Clear Calc Drug Dose 116.2 ml/min Estimated GFR () 114.2 Estimated GFR (Non- 98.5 BUN/Creatinine Ratio 21.9 10-20 Random Glucose 143 70-99 mg/dl Calcium Level 7.9 8.5-10.1 mg/dl Troponin I 0.020 0-0.045 ng/ml Microbiology Results 07/30/16 Blood Culture, Received Pending 07/30/16 Blood Culture, Received Pending 07/31/16 MRSA DNA Surveillance Screen - Final, Complete Specimen Negative for MRSA by DNA Probe Assessment and Plan This is a 70 y/o male with recurrent bilateral pleural effusions, COPD with 2L O2 at home, poorly controlled DM, diastolic CHF, and hypothyroidism presented to the hospital with acute hypoxic respiratory failure. 1. Acute on chronic hypoxic respiratory failure - It could be secondary exacerbation of his COPD and/or pneumonia - Currently on 4L NC O2 - Continue Duoneb INH q6h and Albuterol q4h prn - Continue Pulmicort INH BID - Consulted Pulmonary and appreciate their recommendation 2. COPD exacerbation - Patient is a current smoker - Received 125mg of Solumedrol in ED - Start Prednisone 50mg daily - Continue Duoneb INH q6h with Albuterol q4h prn - Continue Pulmicort INH BID - Currently on 4L NC and plan to wean off as tolerated - Pulmonary recommended to continue with the above medication, add Spiriva and possible Roflumilast prior to d/c but not this time given his state, obtain previous PFT. - Per Pulmonary he will be on trial of NIV and observe for improve with his breathing, will also consider mucomyst. 3. Hospital acquired pneumonia - CXR (07/30): Cardiomegaly with evidence of congestive failure. Perihilar airspace opacities are identified and likely represent interstitial edema.There are small pleural effusions and bibasilar consolidation. This likely represents atelectasis. Cortical clinically for evidence of superimposed pneumonia. - CXR (07/31): Mild stable cardiomegaly. Subtle increase in density of the hemithoracic and perihilar regions bilaterally. Early developing pulmonary edema is considered. Trace pleural fluid left base. - Continue Augmentin 875 BID and added IV azithromycin 250mg to cover atypical organisms. 4. Diastolic CHF - Recurrent pleural effusion most likely secondary to CHF given it's transudate - Continue management of CHF with fluid restriction limit to 1.5L - Continue Lasix 20mg TID. - Daily I/O and weight 5. Neuropathic pain secondary to poorly controlled DM - Start Gabapentin 300mg BID 6. Chronic Right heel ulceration - probably secondary to neuropathy - Wound care consulted and will continue to follow 7. Poorly controlled DM type 2 - On Lantus 24 unit - On sliding scale - ac/hs BSG 8. Recent H/O severe GI bleed requiring blood transfusion - Continue Carafate 1 gm and Protonix 20mg daily 9. Depression - Continue Paroxetine 20mg 10. PAF - continue warfarin 3 mg - Last INR is 1.8 - Continue to monitor 11. BPH - Continue tamsulosin 0.4mg 12. DVT Prophylaxis - Warfarin 13. Code status - Full code History Resident Physician Supervision Note: I was present with Dr. Goodrich during the history and exam. I discussed the case with the resident and agree with the findings and plan as documented in the note. Any exceptions or clarifications are listed here. Pt seen and examined at bedside. No acute events since admission. Gradually improving shortness of breath and fatigue on present treatment regimen. Persistent neuropathic pain of the b/l distal UE and LE, presently untreated per patient with extensive therapeutic history which included 2800mg daily of gabapentin. Reports no vision/hearing cahnges, CP/palpitations, nausea, abd pain. General Appearance: mild distress Respiratory: respiratory distress (mild, improving), decreased breath sounds, wheezing, expiration (extended) Cardiovascular: normal peripheral pulses, regular rate, rhythm, no edema, no murmur Extremities: normal range of motion, other (missing 4th digit, right hand) Assessment/Plan 69 y/o male h/o b/l pleural effusions, COPD, DMII, CHF p/w AHRF AHRF - pulmonology consult COPD exacerbation - continue duonebs, prednisone, pulmicort HCAP - trend CBC, augmentin + azithromycin dCHF w/ Effusion - will monitor closely, I/O, daily wts, fluid restrict to 1.5L - echo completed Neuropathy - start gabapentin 300mg TID LE wound - wound care c/s Depression - continue paroxetine PAF - warfarin, trend INR, adjust PRN BPH - tamsulosin
[2016-07-31] MEDS: CARVEDILOL 12.5 MG TAB PO SCH ×2 (08:19→20:23)
[2016-07-31] MEDS: AMOXICILLIN/CLAVULANATE TAB 875 MG TAB PO SCH ×2 (08:19→17:06)
[2016-07-31] MEDS: SUCRALFATE 1 GM/10 ML UDC PO SCH ×4 (08:19→20:22)
[2016-07-31] MEDS: FUROSEMIDE 20 MG TAB PO SCH ×3 (08:20→20:23)
[2016-07-31] MEDS: CYANOCOBALAMIN 500 MCG TAB (VIT B-12) PO SCH (08:20)
[2016-07-31] MEDS ORDERED: TIOTROPIUM BROMIDE 5 PUFF/90 MCG INH INH SCH (09:00)
--- NOTE | 2016-07-31 09:09 | Pulmonary Consultation ---
History General Date of Service: Jul 31, 2016. Stated Complaint: Hypoxia,Pleural Effusion HPI The patient is a 70 year old male who presents to [facility] with complaints of Hypoxia,Pleural Effusion. The patient's primary care provider is No Doctor, Assigned. 70 y/o oxygen dependent male presents to the [facility] ED after recent d/c from [facility] (07/29-) where he was admitted (per the patient) for pneumonia and pleural effusions. Per the records he was treated with Zosyn and Levaquin then d/c on Augmentin and prednisone 10mg/QD. The patient notes he is unable to care for himself with associated: global weakness, diffuse pain especially in his hands, decreased appetite and increased shortness of breath over the last 2 months with repeat thoracentesis during that time. The patient notes increasing dyspnea to the point he has it even at rest over the last 2 months with minimal relief from any intervention/medication over that time. [facility]: Pleural Effusion: Volume: 600cc/WBC:52/RBC:109(Neutrophils-41%,Lymphs-14$,[place]:20%,[place]:3%,GLu: 107,LDH:53,Pro:0.8) ED: VS: stable on 2L Treatment: oDuoNeb oSolu-Medrol 125mg oMS 4mg IV oLevaquin 750mg IV oZosyn 4.5g IV CXR ([facility]) 07/30/2016 Cardiomegaly with evidence of congestive failure. Claudette-hilar airspace opacities are identified and likely represent interstitial edema small pleural effusions and bibasilar consolidation likely represents atelectasis Cortical clinically for evidence of superimposed pneumonia CXR ([facility]) 07/31/2016 Bilateral hilar fullness Left cos-phrenic blunting Poor penetration Bilateral cephalization CTA done yesterday that was negative for PE per chart review from [place] No pulmonary emboli Signs of volume overload central pulmonary vasculature enlarged, bilateral pleural effusions bilateral lower lobe atelectasis or consolidation EKG: A-fib, 101, no definitive signs of acute ischemia Historian: patient, EMS Review of Systems Constitutional: reports: malaise, weakness Eyes: reports: no symptoms ENT: reports: no symptoms Cardiovascular: reports: chest tightness Respiratory: reports: TELLO, shortness of breath, wheezing Gastrointestinal: reports: no symptoms Genitourinary - Male: reports: no symptoms Musculoskeletal: reports: myalgias Integumentary: reports: no symptoms Neurologic: reports: no symptoms Psychiatric: reports: depression Endocrine: no symptoms Hematologic / Lymphatic: no symptoms Allergic / Immunologic: no symptoms Past Medical History Past Medical History: 1)Cataract Left 2)DM 3)Neuropathy 4)Atrial Fib 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) 6)Diastolic Heart failure 7)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 9)Hypothyroidism 10)GIB 11)PVD 12)CVA Past Surgical History: 1) Cataract intervention 2013 2) Lt toe ambulation Family History No pertinent family history non-contributory via the patient Social History Tobacco: 1ppd ETOH: 2 beers/QD Hx Tobacco Use In Past Year?: Yes (Quit smoking 2 months ago) Smoking Status: Former Smoker Marital status: single Occupational Status: retired Allergies Coded Allergies: No Known Allergies (Unverified , 04/30/16) Current Medications Reported Home Medications Medications Dose Route/Sig Max Daily Dose Days Date Category Dose Instructions Novolin R (Insulin Human Regular) 1 Ea Ea SQ ACHS 07/30/16 Reported 151-200=0 UNITS, 201-250=2 UNITS, 251-300=4 UNITS, 301-350 =8 UNITS, 351-400=10 UNITS, <60 OR >400 CALL Lantus Solostar (Insulin Glargine) 100 Unit/Ml Inj 24 SC HS 07/30/16 Reported Lasix (Furosemide) 20 Mg Tab 20 Mg PO TID 07/30/16 Reported Coreg (Carvedilol) 12.5 Mg Tab 12.5 Mg PO BID 07/30/16 Reported Pulmicort Respules 0.5MG/2ML (Budesonide) 0.5 Mg/2 Ml Nebu 2 Ml INH BID 07/30/16 Reported Dulcolax (Bisacodyl) 10 Mg Sup 5 Mg RE UD 07/30/16 Reported FOR NO BM 4 DAYS Augmentin 875-125 mg (Amoxicillin & Pot Clavulanate) 1 Tab Tab 1 Tab PO BID 07/30/16 Reported Albuterol Sulfate (Albuterol Sulf) 2.5 Mg/3 Ml Nebu 3 Ml INH Q4H PRN 07/30/16 Reported Tylenol (Acetaminophen) 325 Mg Tab 650 Mg PO Q4H PRN 07/30/16 Reported Jantoven (Warfarin Sodium) 3 Mg Tab 3 Mg PO DAILY 07/30/16 Reported Carafate (Sucralfate) 1 Gm/10 Ml Darya 10 Ml PO ACHS 30 07/30/16 Reported Fleet Enema (Sodium Phosphate/Biphosphate) [place] [address] DAILY PRN 07/30/16 Reported Prednisone 10 Mg Tab 10 Mg PO DAILY 07/30/16 Reported Paxil (Paroxetine HCl) 20 Mg Tab 20 Mg PO HS 07/30/16 Reported Prilosec (Omeprazole) 20 Mg Capcr 20 Mg PO DAILY 07/30/16 Reported Milk Of Magnesia (Magnesium Hydroxide) 30 Ml Susp 30 Ml PO HS PRN 07/30/16 Reported Flomax (Tamsulosin Hcl) 0.4 Mg Cap 1 Cap PO HS 30 04/30/16 Reported Levothyroxine Sodium 25 Mcg Tab 1 Tab PO DAILY 30 04/30/16 Reported Vitamin B-12 (Cyanocobalamin) 500 Mcg Tab 500 Mcg PO DAILY 04/30/16 Reported TAKE 2 ( 500MCG) TABLETS BY MOUTH EVERY DAY Physical Physical Exam Vital Signs: Date Time Temp Pulse Resp B/P Pulse Ox O2 Delivery O2 Flow Rate FiO2 07/31/16 07:37 36.3 97 20 149/76 100 Nasal Cannula 3.0 97 07/31/16 03:11 36.3 70 17 137/77 100 Nasal Cannula 4.0 07/31/16 01:52 36.6 78 22 134/79 97 Nasal Cannula 4.0 07/31/16 01:40 78 19 130/86 96 07/31/16 01:17 80 07/31/16 01:00 84 22 100/79 97 Nasal Cannula 2.0 07/31/16 00:06 98 26 137/92 99 Nasal Cannula 2.0 07/30/16 22:29 105 22 149/98 98 Nasal Cannula 2.0 07/30/16 21:57 97 Nasal Cannula 2.0 07/30/16 21:57 97 Nasal Cannula 2.0 07/30/16 21:34 113 07/30/16 21:29 36.8 110 22 152/101 97 Nasal Cannula 2.0 Thoracic US performed -bilateral b-line in the apices -bilateral small pleural effusion L>R -collapse of the IVC General Appearance: moderate distress Head: NORMOCEPHALIC, ATRAUMATIC Eyes: PERRLA, NO DISCHARGE, EOMI, SCLERAE NORMAL ENT: NORMAL EAR EXAM, NORMAL NASAL EXAM, NORMAL MOUTH EXAM Neck: NORMAL RANGE OF MOTION, NO TENDERNESS, TRACHEA MIDLINE, NO STRIDOR Respiratory: accessory muscle use, rales, respiratory distress, rhonchi Cardiovasular: irregular rate, abnormal rhythm Abdomen: NON TENDER, NO REBOUND, NO MASSES, NO GUARDING, NO ORGANOMEGALY Genitourinary - Male: EXTERNAL GENITALIA NORMAL Back: NORMAL INSPECTION, NO MIDLINE TENDERNESS, NO CVA TENDERNESS Upper Extremities: NO EDEMA, other (brusing ) Lower Extremities: NO EDEMA, other (left 1-2nd toe amputation) Edema: RLE (1+ at the foot and ankle) Pulses: carotid (R) (1+), carotid (L) (1+), dorsalis pedis (R) (1+), dorsalis pedis (L) (1+) Neuro: ALERT, ORIENTED x 3, NORMAL MOTOR EXAM, NORMAL SENSATION, other (facial nerve 7 decreased with poor right sided smile) Reflexes: biceps (R) (2+), bicpes (L) (2+) Babinski Testing: right (downgoing), left (downgoing) Psychiatric: NORMAL AFFECT, NO SUICIDAL IDEATION, anxious Diagnostics Labs Results Past 24 Hours Test 07/30/16 22:04 07/30/16 22:05 07/30/16 22:13 07/31/16 01:58 Range/Units White Blood Count 11.18 4.8-10.8 K/uL Red Blood Count 3.39 4.7-6.1 M/uL Hemoglobin 9.4 14.0-18.0 g/dL Hematocrit 28.6 42-52 % Mean Corpuscular Volume 84.4 80-100 fL Mean Corpuscular Hemoglobin 27.7 25-34 pg Mean Corpuscular Hemoglobin Concent 32.9 32-36 g/dl Platelet Count 216 130-400 K/uL Mean Platelet Volume 9.3 7.4-10.4 fL Neutrophils (%) (Auto) 88.2 % Lymphocytes (%) (Auto) 8.2 % Monocytes (%) (Auto) 2.4 % Eosinophils (%) (Auto) 0.8 % Basophils (%) (Auto) 0.1 % Neutrophils # (Auto) 9.86 1.4-6.5 K/uL Lymphocytes # (Auto) 0.92 1.2-3.4 K/uL Monocytes # (Auto) 0.27 0.11-0.59 K/uL Eosinophils # (Auto) 0.09 0-0.5 K/uL Basophils # (Auto) 0.01 0-0.2 K/uL RDW Standard Deviation 48.4 36.4-46.3 fL RDW Coefficient of Variation 15.8 11.5-14.5 % Immature Granulocyte % (Auto) 0.3 % Immature Granulocyte # (Auto) 0.03 0.00-0.02 K/uL Prothrombin Time 20.3 9.0-12.0 SECONDS Prothromb Time International Ratio 1.8 0.9-1.1 Activated Partial Thromboplast Time 32.7 21.0-31.0 SECONDS Partial Thromboplastin Ratio 1.3 Sodium Level 137 136-145 mmol/L Potassium Level 4.7 3.5-5.1 mmol/L Chloride Level 98 98-107 mmol/L Carbon Dioxide Level 32 21-32 mmol/L Anion Gap 7.0 3-11 mmol/L Blood Urea Nitrogen 13 7-18 mg/dl Creatinine 0.72 0.60-1.40 mg/dl Est Creatinine Clear Calc Drug Dose 111.7 ml/min Estimated GFR () 108.8 Estimated GFR (Non- 93.9 BUN/Creatinine Ratio 17.6 10-20 Random Glucose 340 70-99 mg/dl Estimated Average Glucose 171 mg/dl Hemoglobin A1c 7.6 4.5-5.6 % Calcium Level 7.5 8.5-10.1 mg/dl Magnesium Level 2.0 1.8-2.4 mg/dl Total Bilirubin 0.2 0.2-1 mg/dl Direct Bilirubin < 0.1 0-0.2 mg/dl Aspartate Amino Transf (AST/SGOT) 17 15-37 U/L Alanine Aminotransferase (ALT/SGPT) 35 12-78 U/L Alkaline Phosphatase 142 45-117 U/L Total Creatine Kinase 72 39-308 U/L Creatine Kinase MB 6.2 0.5-3.6 ng/ml Creatine Kinase MB Ratio 8.6 0-3.0 Troponin I 0.029 0-0.045 ng/ml Pro-B-Type Natriuretic Peptide 2250 0-900 pg/ml Total Protein 5.4 6.4-8.2 gm/dl Albumin 2.4 3.4-5.0 gm/dl Lipase 203 73-393 U/L Beta-Hydroxybutyric Acid 0.95 0.2-2.81 mg/dL Digoxin Level < 0.1 0.8-2.0 ng/ml Influenza Type A (RT-PCR) Neg for Influ A NEG Influenza Type B (RT-PCR) Neg for Influ B NEG Bedside Lactic Acid Venous 1.87 0.90-1.70 mmol/L Bedside Glucose 432 70-99 mg/dl Test 07/31/16 02:45 07/31/16 03:19 07/31/16 06:16 Range/Units Random Glucose 414 70-99 mg/dl Beta-Hydroxybutyric Acid 1.91 0.2-2.81 mg/dL Bedside Glucose 419 263 70-99 mg/dl Microbiology Results 07/30/16 Blood Culture, Received Pending 07/30/16 Blood Culture, Received Pending 07/31/16 MRSA DNA Surveillance Screen - Final, Complete Specimen Negative for MRSA by DNA Probe Diagnostic Radiology CXR ([facility]) 07/30/2016 Cardiomegaly with evidence of congestive failure. Claudette-hilar airspace opacities are identified and likely represent interstitial edema small pleural effusions and bibasilar consolidation likely represents atelectasis Cortical clinically for evidence of superimposed pneumonia CXR ([facility]) 07/31/2016 Bilateral hilar fullness Left cos-phrenic blunting Poor penetration Bilateral cephalization CTA done yesterday that was negative for PE per chart review from [place] No pulmonary emboli Signs of volume overload central pulmonary vasculature enlarged, bilateral pleural effusions bilateral lower lobe atelectasis or consolidation EKG EKG: A-fib, 101, no definitive signs of acute ischemia Impression Assessment and Plan 70 y/o male admitted for respiratory insufficiency: 1) COPD: DuoNebs, Pulmicort, Prednisone 50mg QD I agree with the current medications Per GOLD guidelines we should add Spiriva and Possible Roflumilast prior to D/C but in his current state I don't believe he could properly perform the inspiratory technique We should obtain his previous PFT's and Imaging at this time Will start him on a trial of NIV to see if it can decrease his work-of Breathing Also will attempt Mucomyst trial as the patient has difficulty clearing secretion 2) Diastolic CHF: Patient's hx and thoracic US suggest diastolic failure. Start 1.5L water restriction and cardiac diet F/U on Cardiac Echo 3) Oxygen support Continue current 3-4Lnc and bleed in O2 on BiPAP 4) PNA: Patient recently treated for pna with excellent anti-biotics. I suggest we add atypical coverage abd obtain previous micro-reports from OSH Also send for Procalcitonin ans CRP 5)Pleural Effusion OSH reports and labs not transudative most likely from Diastolic heart failure continue diuresis and water limitation
[2016-07-31] MEDS ORDERED: AZITHROMYCIN IV 500 MG in DEXTROSE 5% 250ML 250 ML IV ONE (10:00)
--- NOTE | 2016-07-31 10:14 | Pharmacy Progress Note ---
Glycemic Control Intl Consult Date of Service Jul 31, 2016. Scope Glycemic Pharmacist consulted by Dr Davison on 07/31/16 @0200 for glycemic control and to write orders per [facility] inpatient glycemic control protocol Objective Weight (Kilograms): 89.400 Accuchecks BSG (last 24hrs): Test 07/30/16 22:04 07/31/16 01:58 07/31/16 02:45 07/31/16 03:19 Random Glucose 340 mg/dl (70-99) 414 mg/dl (70-99) Bedside Glucose 432 mg/dl (70-99) 419 mg/dl (70-99) Test 07/31/16 06:16 Bedside Glucose 263 mg/dl (70-99) Laboratory Data (last 24hrs) Test 07/30/16 22:04 Anion Gap 7.0 mmol/L BUN/Creatinine Ratio 17.6 Blood Urea Nitrogen 13 mg/dl Creatinine 0.72 mg/dl Hemoglobin A1c 7.6 % Potassium Level 4.7 mmol/L Sodium Level 137 mmol/L White Blood Count 11.18 K/uL Red Blood Count 3.39 M/uL Hemoglobin 9.4 g/dL Hematocrit 28.6 % Mean Corpuscular Volume 84.4 fL Mean Corpuscular Hemoglobin 27.7 pg Mean Corpuscular Hemoglobin Concent 32.9 g/dl Platelet Count 216 K/uL Mean Platelet Volume 9.3 fL Neutrophils (%) (Auto) 88.2 % Lymphocytes (%) (Auto) 8.2 % Monocytes (%) (Auto) 2.4 % Eosinophils (%) (Auto) 0.8 % Basophils (%) (Auto) 0.1 % Neutrophils # (Auto) 9.86 K/uL Lymphocytes # (Auto) 0.92 K/uL Monocytes # (Auto) 0.27 K/uL Eosinophils # (Auto) 0.09 K/uL Basophils # (Auto) 0.01 K/uL HbA1c Test 07/30/16 22:04 Hemoglobin A1c 7.6 % (4.5-5.6) H Recent Pertinent Medications Outpatient Anti-diabetic Regimen: * Lantus 24 u HS * Novolin R ACHS (per scale) The patient is currently receiving: * Basal insulin: Lantus 24 units every 24 hours * Correctional Insulin: Novolog Correction per scale ACHS Goal Range: Low 140 mg/dL - High 180 mg/dL Correction Factor: 30 mg/dL/unit * Prandial insulin: Per carb ratio of 1 unit per 10 grams CHO consumed Risk Factors for Insulin Resistance: * Steroids: * Infection: * Pressors: * IVF: * Recent Surgery * Diet: * Mechanical Ventilation: Assessment & Plan ASSESSMENT: * 70 yo T2D M admitted with respiratory failure/COPD- recently admitted at [facility] for pnx- discharged on Augmentin PO and Prednisone PO * Pt with severe hyperglycemia on admission (BSG >400 mg/dL) * In the ED, solumedrol 125 mg IV X 1 given * Regular 5 units IV X 1 given @~0230 * Home dose of Lantus 24 units given@~0230 * Novolog correction per scale given @~0230 * Steroids have not been continued at this time and BSG trended down to high 200 's this AM; however, nurse called at lunch w/ BSG back to 416 mg/dL * Give Regular 8 units IV X 1 * Increase Lantus to 15 units BID starting now * Tighten Novolog and add overnight checks * Evening pharmacist will evaluate this evening to ensure this regimen is not overly aggressive * Plan will be to titrate insulin over the next 48 hours- keeping in mind solumedrol IV bolus effects should be tapering off by tomorrow * ADA & AACE recommend a goal blood sugar range 140-180 mg/dl for the majority of critically ill & non-critically ill patients. However, more stringent targets may be selected in individual cases. PLAN FOR INPATIENT GLYCEMIC CONTROL: * Basal insulin with LANTUS 24 units SQ X 1 @ 0230 * Continue LANTUS 15 units SQ BID * Correctional Insulin with NOVOLOG per scale ACHS + 00,04 checks * Goal Range: Low 110 mg/dL - High 140 mg/dL * Correction Factor: 20 mg/dL/unit * Nutritional / Prandial insulin per carb ratio of 1 unit per 8 grams CHO consumed * A1c current- added to D/C instructions * Please note that the plan above was derived based on current level of insulin resistance and hospital stress. These recommendations are appropriate for inpatient admission only. Plan of care upon discharge will need to be reassessed to avoid potential outpatient hypo/hyperglycemia. Thank you.
[2016-07-31] MEDS ORDERED: NURSING DECISION MEDICATION ORDER SCH (11:15)
[2016-07-31] MEDS: BUDESONIDE 0.5 MG/2 ML VIAL (PULMICORT) INH SCH ×2 (11:35→20:15)
[2016-07-31] MEDS ORDERED: INSULIN REGULAR 8 UNITS in SYRINGE 0 ML IV ONE (11:45)
[2016-07-31] MEDS ORDERED: MICONAZOLE NITRATE POWDER 43 GM EXT PRN (11:45)
[2016-07-31] MEDS: INSULIN GLARGINE SOLOSTAR 100 UNITS/ML 3 ML PEN SC SCH ×2 (12:01→21:03)
--- NOTE | 2016-07-31 15:46 | ECHOCARDIOGRAM REPORT ---
*NOTICE TO RECEIVING [employer] AGENCY This information is strictly Confidential and protected under [place] law. [place] law prohibits you from making any further disclosure of this information unless further disclosure is expressly permitted by the written consent of the person to whom it pertains or is authorized by law. A general authorization for the release of medical or other information is not sufficient for this purpose. Hospital accepts no responsibility if the information is made available to any other person, INCLUDING THE PATIENT. Interpretation Summary * Name: MESHA LOPEZ Study Date: 07/31/2016 08:16 AM BP: 149/76 mmHg * Patient Location: C.2T\S\S236\S\1 HR: 97 * : 1945 (M/d/yyyy) Gender: Male Height: 72 in * Age: 70 yrs Ethnicity: CA Weight: 206 lb * Ordering Physician: Glory Davison * Referring Physician: Self, Referred * Performed By: Jovanna Holly RDCS * * Reason For Study: SOB, CONGESTION ON CHEST XRAY * BSA: 2.2 m2 * History: SOB, CONGESTION ON CXR * -- Conclusions -- * The left ventricle is borderline dilated. * Ejection Fraction = 50-55%. * Left ventricular systolic function is low normal. * There is mild global hypokinesis of the left ventricle. * There is mild concentric left ventricular hypertrophy. * There is moderate tricuspid regurgitation. * Right ventricular systolic pressure is elevated at 30-40mmHg. * The right atrium is mild to moderately dilated. * The inferior vena cava is moderately dilated. Procedure Details * A complete two-dimensional transthoracic echocardiogram was performed (2D, M-mode, Doppler and color flow Doppler). Left Ventricle * The left ventricle is borderline dilated. * There is mild concentric left ventricular hypertrophy. * Ejection Fraction = 50-55%. * Left ventricular systolic function is low normal. * There is mild global hypokinesis of the left ventricle. Right Ventricle * The right ventricle is normal in size and function. Atria * The left atrium is moderately dilated. * The right atrium is mild to moderately dilated. Tricuspid Valve * The tricuspid valve is normal in structure and function. * There is moderate tricuspid regurgitation. * Right ventricular systolic pressure is elevated at 30-40mmHg. Aortic Valve * Mild aortic regurgitation. Great Vessels * The aortic root is normal size. * No obvious dissection could be visualized. * The pulmonary artery is normal size. Pericardium/Pleural * There is no pericardial effusion. Great Vessels * The inferior vena cava is moderately dilated. MMode 2D Measurements and Calculations IVSd 1.3 cm IVSs 1.6 cm LVIDd 5.3 cm LVIDs 4.0 cm LVPWd 1.5 cm LVPWs 2.0 cm IVS/LVPW 0.90 FS 25.7 % EDV(Teich) 136.3 ml ESV(Teich) 68.0 ml EF(Teich) 50.1 % EDV(cubed) 150.2 ml ESV(cubed) 61.7 ml EF(cubed) 58.9 % % IVS thick 21.7 % % LVPW thick 32.7 % LV mass(C)d 321.0 grams LV mass(C)dI 148.9 grams/m\S\2 LV mass(C)s 304.0 grams LV mass(C)sI 141.0 grams/m\S\2 SV(Teich) 68.3 ml SI(Teich) 31.7 ml/m\S\2 SV(cubed) 88.5 ml SI(cubed) 41.1 ml/m\S\2 LA dimension 5.1 cm LVAd ap4 35.0 cm\S\2 LVLd ap4 8.3 cm EDV(MOD-sp4) 124.1 ml EDV(sp4-el) 125.0 ml LVAs ap4 22.6 cm\S\2 LVLs ap4 7.5 cm ESV(MOD-sp4) 61.6 ml ESV(sp4-el) 57.6 ml EF(MOD-sp4) 50.3 % EF(sp4-el) 53.9 % LVAd ap2 32.1 cm\S\2 LVLd ap2 8.4 cm EDV(MOD-sp2) 100.9 ml EDV(sp2-el) 104.0 ml LVAs ap2 20.9 cm\S\2 LVLs ap2 7.2 cm ESV(MOD-sp2) 52.2 ml ESV(sp2-el) 52.0 ml EF(MOD-sp2) 48.3 % EF(sp2-el) 50.1 % LVLd %diff 1.1 % EDV(MOD-bp) 112.4 ml LVLs %diff -5.08 % ESV(MOD-bp) 57.7 ml EF(MOD-bp) 48.6 % SV(MOD-sp4) 62.5 ml SI(MOD-sp4) 29.0 ml/m\S\2 SV(MOD-sp2) 48.8 ml SI(MOD-sp2) 22.6 ml/m\S\2 SV(MOD-bp) 54.6 ml SI(MOD-bp) 25.3 ml/m\S\2 SV(sp4-el) 67.4 ml SI(sp4-el) 31.2 ml/m\S\2 SV(sp2-el) 52.1 ml SI(sp2-el) 24.2 ml/m\S\2 Doppler Measurements and Calculations MV E max alaina 88.4 cm/sec MV dec time 0.25 sec Ao V2 max 137.8 cm/sec Ao max PG 7.6 mmHg Ao max PG (full) 6.0 mmHg LV V1 max PG 1.6 mmHg LV V1 max 63.8 cm/sec TR max alaina 276.6 cm/sec
[2016-07-31] MEDS: WARFARIN SOD 3 MG TAB PO SCH (17:07)
[2016-07-31] MEDS ORDERED: GABAPENTIN 100 MG CAP PO ONE (17:30)
[2016-07-31 18:12] LABS: COMPLETE YES; HEMATOCRIT 27.7 % (42-52); IG% 0.4 %; LYMPH % 3.7 %; LYMPH ABS # 0.45 K/uL (1.2-3.4); MEAN CELL VOLUME 84.7 fL (80-100); MEAN CORPUSCULAR HEMOGLOBIN 27.5 pg (25-34); MEAN CORPUSCULAR HGB CONC 32.5 g/dl (32-36); MONO % 5.9 %; PLATELET COUNT 193 K/uL (130-400); RED BLOOD COUNT 3.27 M/uL (4.7-6.1); WHITE BLOOD COUNT 12.32 K/uL (4.8-10.8)
[2016-07-31 18:39] LABS: BUN/CREATININE RATIO 21.9 (10-20); CALCIUM 7.9 mg/dl (8.5-10.1); CREATININE 0.64 mg/dl (0.60-1.40); POTASSIUM 4.4 mmol/L (3.5-5.1)
[2016-07-31] MEDS: TAMSULOSIN HCL 0.4 MG CAP PO SCH (20:22)
[2016-07-31] MEDS: PAROXETINE 20 MG TAB PO SCH (20:23)
[2016-07-31] MEDS: MAGNESIUM HYDROXIDE SUSP 30 ML UDC PO PRN (20:24)
[2016-07-31] MEDS ORDERED: GABAPENTIN 100 MG CAP PO SCH (21:00)
[2016-07-31] MEDS ORDERED: GABAPENTIN 600 MG TAB PO SCH (21:00)
[2016-07-31] MEDS: GABAPENTIN 300 MG CAP PO SCH (23:09)
[2016-08-01] VITALS (19 sets, daily range): BP systolic 101–129; BP diastolic 59–77; PULSE 67–133; TEMP 36.3–36.8; O2SAT 91–98; BMI 26.7
[2016-08-01] MEDS ORDERED: ZOLPIDEM TARTRATE 5 MG TAB PO ONE (00:15)
[2016-08-01] MEDS: INSULIN ASPART 100 UNITS/ML 3 ML PEN SC SCH ×7 (00:21→23:37)
[2016-08-01] MEDS: ALBUT/IPRATROP 3MG/0.5MG NEB 3 ML VIAL INH SCH ×5 (01:18→19:19)
[2016-08-01 06:55] LABS: HEMATOCRIT 28.6 % (42-52); MEAN CELL VOLUME 86.4 fL (80-100); MEAN CORPUSCULAR HEMOGLOBIN 27.2 pg (25-34); MEAN CORPUSCULAR HGB CONC 31.5 g/dl (32-36); PLATELET COUNT 198 K/uL (130-400); RED BLOOD COUNT 3.31 M/uL (4.7-6.1)
[2016-08-01 07:07] LABS: INR 2.1 (0.9-1.1); PROTHROMBIN TIME (PATIENT) 23.4 SECONDS (9.0-12.0)
[2016-08-01] MEDS: BUDESONIDE 0.5 MG/2 ML VIAL (PULMICORT) INH SCH ×2 (07:17→19:19)
[2016-08-01 07:29] LABS: BUN/CREATININE RATIO 33.7 (10-20); CREATININE 0.53 mg/dl (0.60-1.40)
[2016-08-01] MEDS: LEVOTHYROXINE 25 MCG TAB PO SCH (07:29)
[2016-08-01] MEDS: SUCRALFATE 1 GM/10 ML UDC PO SCH ×4 (07:29→21:12)
[2016-08-01] MEDS: AMOXICILLIN/CLAVULANATE TAB 875 MG TAB PO SCH ×2 (07:30→16:17)
[2016-08-01] MEDS ORDERED: AZITHROMYCIN IV 250 MG in DEXTROSE 5% 250ML 250 ML IV SCH (08:00)
[2016-08-01] MEDS: GABAPENTIN 300 MG CAP PO SCH ×2 (08:41→21:13)
[2016-08-01] MEDS: FUROSEMIDE 20 MG TAB PO SCH ×3 (08:41→21:14)
[2016-08-01] MEDS: CARVEDILOL 12.5 MG TAB PO SCH ×2 (08:41→21:13)
[2016-08-01] MEDS: PANTOprazole SOD 40 MG TAB PO SCH (08:42)
[2016-08-01] MEDS: CYANOCOBALAMIN 500 MCG TAB (VIT B-12) PO SCH (08:42)
[2016-08-01] MEDS ORDERED: INSULIN GLARGINE SOLOSTAR 100 UNITS/ML 3 ML PEN SC SCH (09:00)
--- NOTE | 2016-08-01 09:59 | Clinical Documentation Query ---
CLINICAL DOCUMENTATION QUERY 70 year old male who presents to the Emergency Room with complaints of generalized weakness, generalized pain, increasing shortness of breath. In your clinical opinion is this patient being managed for: ( X ) Acute on chronic diastolic CHF treated with fluid restricted diet and continuation of home Lasix dosing. ( ) Other explanation of clinical findings (Please Explain) ( ) Unable to determine (Please Define) ( ) Need to Discuss ( ) Not Agree The medical record reflects the following clinical findings, treatment, and risk factors. Clinical Indicators: Pneumonia, COPD exacerbation. Repeat CXR showing early and/or developing pulmonary edematous change. Trace pleural fluid left base. Documented acute hypoxic respiratory failure. Treatment: IV Azithromycin, I/O's, daily weights, fluid restricted diet, Echo, Risk Factors: Age, Chronic diastolic CHF, underlying pneumonia with COPD exacerbation. Please clarify and document your clinical opinion in the progress notes and discharge summary. Terms such as "probable", "suspected", "likely", "questionable", "possible", or "still to be ruled out" are acceptable. IF IN AGREEMENT, YOU MUST DOCUMENT ABOVE DIAGNOSTIC STATEMENT IN DAILY PROGRESS NOTES AND DISCHARGE SUMMARY. This document is not part of the patient's record. Thank You, Abdelrahman Herrera, RN [phone]
--- NOTE | 2016-08-01 10:18 | Family Medicine Progress Note ---
Progress Note Date of Service Aug 01, 2016. Subjective Pt evaluation today including: conversation w/ patient, physical exam Voiding: krueger catheter in place Patient complains of worsening SOB this morning. He states that he felt better after the DuoNeb treatment. He was also given Ativan X1, which also helped to clam down his agitation. Denies chest pain, nausea, vomiting, dizziness, abdominal pain or any other complaints. Constitutional: No fever Respiratory: + cough, + shortness of breath, No sputum Cardiovascular: No chest pain Abdomen: No constipation, No diarrhea, No nausea, No pain, No vomiting Neurologic: + problem reported (complains of neuropathic pain b/l upper extremities and lower extremities) Skin: No rash Medications Current Inpatient Medications Medications (Trade) Dose Ordered Sig/Sujatha Route Start Time Stop Time Status Last Admin Dose Admin Acetaminophen (Tylenol Tab) 650 mg Q4H PRN PO 07/31/16 01:15 08/30/16 01:14 Al Hydrox/Mg Hydrox/Simethicone (Maalox Max Susp) 15 ml Q4H PRN PO 07/31/16 01:15 08/30/16 01:14 Ondansetron HCl (Zofran Inj) 4 mg Q6H PRN IV 07/31/16 01:15 08/30/16 01:14 Nitroglycerin (Nitrostat Tab) 0.4 mg UD PRN SL 07/31/16 01:15 08/30/16 01:14 Morphine Sulfate (MoRPHine SULFATE INJ) 2 mg Q30M PRN IV 07/31/16 01:15 08/14/16 01:14 Bisacodyl (Dulcolax Supp) 5 mg PRN PRN NC 07/31/16 01:30 08/30/16 01:29 07/31/16 20:24 5 MG Budesonide (Pulmicort Respules 0.5MG/ 2ML Neb Soln) 1 mg BIDR INH 07/31/16 08:00 08/30/16 07:59 08/01/16 19:19 1 MG Carvedilol (Coreg Tab) 12.5 mg BID PO 07/31/16 09:00 08/30/16 08:59 08/01/16 08:41 12.5 MG Cyanocobalamin (Vitamin B-12 Tab) 500 mcg DAILY PO 07/31/16 09:00 08/30/16 08:59 08/01/16 08:42 500 MCG Furosemide (Lasix Tab) 20 mg TID PO 07/31/16 09:00 08/30/16 08:59 08/01/16 12:53 20 MG Levothyroxine Sodium (Synthroid Tab) 25 mcg DAILYBB PO 07/31/16 06:00 08/30/16 05:59 08/01/16 07:29 25 MCG Magnesium Hydroxide (Milk Of Magnesia Susp) 30 ml HS PRN PO 07/31/16 01:30 08/30/16 01:29 07/31/16 20:24 30 ML Paroxetine HCl (pAXil TAB) 20 mg HS PO 07/31/16 21:00 08/30/16 20:59 07/31/16 20:23 20 MG Sodium Biphosphate/ Sodium Phosphate (Fleet Enema) 1 ml DAILY PRN NC 07/31/16 01:30 08/30/16 01:29 Sucralfate (Carafate Susp) 1 gm ACHS PO 07/31/16 07:00 08/30/16 06:59 08/01/16 16:16 1 GM Tamsulosin HCl (Flomax Cap) 0.4 mg HS PO 07/31/16 21:00 08/30/16 20:59 07/31/16 20:22 0.4 MG Warfarin Sodium (Coumadin Tab) 3 mg DAILY@1600 PO 07/31/16 16:00 08/30/16 15:59 08/01/16 16:17 3 MG Insulin Aspart (novoLOG ASPART) SLIDING SCALE G... ACHS SC 07/31/16 02:30 08/30/16 02:29 08/01/16 18:14 9 UNITS Albuterol/ Ipratropium (Duoneb) 3 ml Q6R INH 07/31/16 03:00 08/30/16 02:59 08/01/16 19:19 3 ML Miscellaneous Information (Consult Glycemic Management Pharmacy) 1 ea UD PRN N/A 07/31/16 02:39 08/30/16 02:38 Amoxicillin/ Clavulanate Potassium (Augmentin Tab) 875 mg BIDM PO 07/31/16 07:30 08/07/16 07:29 08/01/16 16:17 875 MG Insulin Aspart (novoLOG ASPART) SLIDING SCALE G... 0000,0400 SC 08/01/16 00:00 08/31/16 00:00 08/01/16 00:21 1 UNITS Miconazole Nitrate (Desenex Powder) 1 appln PRN PRN EXT 07/31/16 11:45 08/30/16 11:44 07/31/16 22:00 1 APPLN Pantoprazole Sodium (Protonix Tab) 40 mg QAM PO 08/01/16 09:00 08/31/16 08:59 08/01/16 08:42 40 MG Gabapentin (Neurontin Cap) 300 mg BID PO 07/31/16 21:00 08/30/16 20:59 08/01/16 08:41 300 MG Prednisone (PredniSONE TAB) 50 mg DAILY PO 08/01/16 09:00 08/31/16 08:59 08/01/16 08:42 50 MG Zolpidem Tartrate (Ambien Tab) 5 mg HS PRN PO 08/01/16 00:00 08/31/16 00:00 Insulin Glargine (Lantus Solostar Pen) 10 unit BID SC 08/01/16 09:00 08/31/16 08:59 Future hold Albuterol Sulfate (Ventolin 0.083% 2.5MG/3ML Neb) 2.5 mg Q4H PRN INH 08/01/16 13:30 08/31/16 13:29 Lorazepam (Ativan Tab) 0.5 mg Q6 PRN PO 08/01/16 12:15 08/31/16 12:14 08/01/16 12:18 0.5 MG Acetylcysteine (Mucomyst 20% Inh Soln) 3 ml BIDR INH 08/01/16 20:00 08/31/16 19:59 08/01/16 19:19 3 ML Azithromycin (Zithromax Tab) 250 mg DAILY PO 08/02/16 09:00 08/07/16 08:59 Objective Vital Signs Date Time Temp Pulse Resp B/P Pulse Ox O2 Delivery O2 Flow Rate FiO2 08/01/16 19:19 78 22 98 Nasal Cannula 3.0 08/01/16 19:15 36.4 133 20 127/67 91 4.0 08/01/16 15:33 36.5 95 20 108/69 94 3.0 08/01/16 14:43 74 22 98 Nasal Cannula 3.0 08/01/16 12:00 Nasal Cannula 3.0 08/01/16 11:31 36.8 93 24 127/75 91 BiPAP 4.0 08/01/16 10:14 67 12 97 BiPAP 3.0 08/01/16 10:14 67 97 3.0 08/01/16 09:59 67 24 97 Nasal Cannula 3.0 08/01/16 08:00 95 Nasal Cannula 3.0 08/01/16 07:42 36.4 92 24 114/71 98 Nasal Cannula 2.0 08/01/16 07:17 89 18 97 Nasal Cannula 3.0 08/01/16 04:15 95 Nasal Cannula 2.5 08/01/16 04:02 36.3 89 19 122/77 95 Nasal Cannula 2.5 08/01/16 00:20 98 Nasal Cannula 3.0 07/31/16 23:10 98 18 100 Nasal Cannula 3.0 07/31/16 22:49 36.5 98 20 126/71 98 Nasal Cannula 4.0 Physical Exam General Appearance: + moderate distress Neck: supple, trachea midline Respiratory/Chest: chest non-tender, + respiratory distress, + decreased breath sounds, + crackles, + wheezing Cardiovascular: regular rate, rhythm Abdomen: normal bowel sounds, non tender, soft Extremities: non-tender, + pedal edema (LLE>RLE), + pertinent finding ( 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, also don't have 4th digit of right hand) Neurologic/Psychiatric: alert, normal mood/affect, oriented x 3 Skin: normal color, warm/dry Laboratory Results Results Past 24 Hours Test 07/31/16 20:32 08/01/16 00:02 08/01/16 04:04 08/01/16 06:35 Range/Units Bedside Glucose 172 158 106 70-99 mg/dl White Blood Count 13.40 4.8-10.8 K/uL Red Blood Count 3.31 4.7-6.1 M/uL Hemoglobin 9.0 14.0-18.0 g/dL Hematocrit 28.6 42-52 % Mean Corpuscular Volume 86.4 80-100 fL Mean Corpuscular Hemoglobin 27.2 25-34 pg Mean Corpuscular Hemoglobin Concent 31.5 32-36 g/dl RDW Standard Deviation 49.8 36.4-46.3 fL RDW Coefficient of Variation 15.7 11.5-14.5 % Platelet Count 198 130-400 K/uL Mean Platelet Volume 9.0 7.4-10.4 fL Prothrombin Time 23.4 9.0-12.0 SECONDS Prothromb Time International Ratio 2.1 0.9-1.1 Sodium Level 141 136-145 mmol/L Potassium Level 5.0 3.5-5.1 mmol/L Chloride Level 102 98-107 mmol/L Carbon Dioxide Level 36 21-32 mmol/L Anion Gap 3.0 3-11 mmol/L Blood Urea Nitrogen 18 7-18 mg/dl Creatinine 0.53 0.60-1.40 mg/dl Est Creatinine Clear Calc Drug Dose 138.3 ml/min Estimated GFR () 122.5 Estimated GFR (Non- 105.7 BUN/Creatinine Ratio 33.7 10-20 Random Glucose 54 70-99 mg/dl Calcium Level 8.0 8.5-10.1 mg/dl Test 08/01/16 07:08 08/01/16 10:45 08/01/16 16:15 08/01/16 20:17 Range/Units Bedside Glucose 71 155 175 280 70-99 mg/dl Assessment and Plan This is a 70 y/o male with recurrent bilateral pleural effusions, COPD with 2L O2 at home, poorly controlled DM, diastolic CHF, and hypothyroidism presented to the hospital with acute hypoxic respiratory failure. 1. Acute on chronic hypoxic respiratory failure - It could be secondary exacerbation of his COPD and/or pneumonia - Currently on 4L NC O2 - Continue Duoneb INH q6h and Albuterol q4h prn - Continue Pulmicort INH BID - Continue intermittent vibration therapy - Continue Mucomyst INH BID - Consulted Pulmonary and appreciate their recommendation 2. COPD exacerbation - Patient is a current smoker - Received 125mg of Solumedrol in ED - Start Prednisone 50mg daily - Continue Duoneb INH q6h with Albuterol q4h prn - Continue Pulmicort INH BID - Currently requiring oxygen supplement - Pulmonary recommended to continue with the above medication, add Spiriva and possible Roflumilast prior to d/c but not this time given his state, obtain previous PFT. 3. Hospital acquired pneumonia - CXR (07/30): Cardiomegaly with evidence of congestive failure. Perihilar airspace opacities are identified and likely represent interstitial edema.There are small pleural effusions and bibasilar consolidation. This likely represents atelectasis. Cortical clinically for evidence of superimposed pneumonia. - CXR (07/31): Mild stable cardiomegaly. Subtle increase in density of the hemithoracic and perihilar regions bilaterally. Early developing pulmonary edema is considered. Trace pleural fluid left base. - Continue Augmentin 875 BID and added IV azithromycin 250mg to cover atypical organisms. 4. Diastolic CHF - Recurrent pleural effusion most likely secondary to CHF given it's transudate - Continue management of CHF with fluid restriction limit to 1.5L - Continue Lasix 20mg TID. - Daily I/O and weight 5. Neuropathic pain secondary to poorly controlled DM - Start Gabapentin 300mg BID 6. Chronic Right heel ulceration - probably secondary to neuropathy - Wound care consulted and will continue to follow 7. Poorly controlled DM type 2 - On Lantus 24 unit - On sliding scale - ac/hs BSG 8. Recent H/O severe GI bleed requiring blood transfusion - Continue Carafate 1 gm and Protonix 20mg daily 9. Depression - Continue Paroxetine 20mg 10. PAF - continue warfarin 3 mg - Last INR is 2.1 - Continue to trend and monitor 11. BPH - Continue tamsulosin 0.4mg 12. DVT Prophylaxis - Warfarin 13. Code status - Full code History Resident Physician Supervision Note: I was present with Dr. Goodrich during the history and exam. I discussed the case with the resident and agree with the findings and plan as documented in the note. Any exceptions or clarifications are listed here. Pt seen and examined at bedside. Initially this morning, patient complains of worsened shortness of breath which improved somewhat following a treatment of duoneb and more following ativan 0.5mg x 1. He received treatment with BiPAP, as well as a vibration vest, which he feels cleared his airway some. He reports no fever, lightheadedness, vision/hearing changes, CP, nausea, sensory changes. General Appearance: mild distress, obese Neck: non-tender, full range of motion, supple Respiratory: respiratory distress, decreased breath sounds, rales, wheezing Cardiovascular: normal peripheral pulses, regular rate, rhythm, no edema, no murmur Gastrointestinal: normal bowel sounds, non tender, soft, no organomegaly Assessment/Plan 69 y/o male h/o b/l pleural effusions, COPD, DMII, CHF p/w AHRF AHRF - pulmonology aware and input appreciated - continue intermittent vibration therapy, encourage BiPAP w/ SOB COPD exacerbation - continue duonebs, prednisone, pulmicort, azithromycin HCAP - trend CBC, augmentin & azithromycin dCHF w/ Effusion - will monitor closely, I/O, daily wts, fluid restrict to 1.5L - echo completed Neuropathy - gabapentin 300mg TID, h/o considerable medication use to curb pain and mood LE wound - wound care aware Depression - continue paroxetine PAF - warfarin, trend INR, adjust PRN BPH - tamsulosin
[2016-08-01] MEDS: LORAZEPAM 0.5 MG TAB PO PRN ×2 (12:18→21:59)
--- NOTE | 2016-08-01 13:23 | Pharmacy Progress Note ---
Glycemic Control: Progress Nt Date of Service Aug 01, 2016. Scope Glycemic Pharmacist consulted by Dr Davison on 07/31/16 for glycemic control and to write orders per [facility] inpatient glycemic control protocol. Objective Accuchecks BSG (last 24hrs): Test 07/31/16 16:18 07/31/16 18:00 07/31/16 20:32 08/01/16 00:02 Bedside Glucose 151 mg/dl (70-99) 172 mg/dl (70-99) 158 mg/dl (70-99) Random Glucose 143 mg/dl (70-99) Test 08/01/16 04:04 08/01/16 06:35 08/01/16 07:08 08/01/16 10:45 Bedside Glucose 106 mg/dl (70-99) 71 mg/dl (70-99) 155 mg/dl (70-99) Random Glucose 54 mg/dl (70-99) Laboratory Data (last 24hrs) Test 07/31/16 18:00 08/01/16 06:35 Anion Gap 5.0 mmol/L 3.0 mmol/L BUN/Creatinine Ratio 21.9 33.7 Blood Urea Nitrogen 14 mg/dl 18 mg/dl Creatinine 0.64 mg/dl 0.53 mg/dl Potassium Level 4.4 mmol/L 5.0 mmol/L Sodium Level 138 mmol/L 141 mmol/L White Blood Count 12.32 K/uL 13.40 K/uL Red Blood Count 3.27 M/uL Hemoglobin 9.0 g/dL Hematocrit 27.7 % Mean Corpuscular Volume 84.7 fL Mean Corpuscular Hemoglobin 27.5 pg Mean Corpuscular Hemoglobin Concent 32.5 g/dl Platelet Count 193 K/uL Mean Platelet Volume 9.0 fL Neutrophils (%) (Auto) 90.0 % Lymphocytes (%) (Auto) 3.7 % Monocytes (%) (Auto) 5.9 % Eosinophils (%) (Auto) 0.0 % Basophils (%) (Auto) 0.0 % Neutrophils # (Auto) 11.09 K/uL Lymphocytes # (Auto) 0.45 K/uL Monocytes # (Auto) 0.73 K/uL Eosinophils # (Auto) 0.00 K/uL Basophils # (Auto) 0.00 K/uL HbA1c: Test 07/30/16 22:04 Hemoglobin A1c 7.6 % (4.5-5.6) H Recent Pertinent Medications Outpatient Anti-diabetic Regimen: * Lantus 24 u HS * Novolin R ACHS (per scale) The patient is currently receiving: * Basal insulin: Lantus 15 units every 12 hours * Correctional Insulin: Novolog Correction per scale ACHS Goal Range: Low 110 mg/dL - High 140 mg/dL Correction Factor: 25 mg/dL/unit * Prandial insulin: Per carb ratio of 1 unit per 9 grams CHO consumed Risk Factors for Insulin Resistance: * Steroids: Solu-medrol 125mg IV x1 dose yesterday; Prednisone 50mg PO daily starting today * Infection:Augmentin PO; Azithromycin IV * Diet: Type 2 DM/ AHA/ Low Na+ Assessment & Plan ASSESSMENT: 07/31/16 * 70 yo T2D M admitted with respiratory failure/COPD- recently admitted at [facility] for pnx- discharged on Augmentin PO and Prednisone PO * Pt with severe hyperglycemia on admission (BSG >400 mg/dL) * In the ED, solumedrol 125 mg IV X 1 given * Regular 5 units IV X 1 given @~0230 * Home dose of Lantus 24 units given@~0230 * Novolog correction per scale given @~0230 * Steroids have not been continued at this time and BSG trended down to high 200 's this AM; however, nurse called at lunch w/ BSG back to 416 mg/dL * Give Regular 8 units IV X 1 * Increase Lantus to 15 units BID starting now * Tighten Novolog and add overnight checks * Evening pharmacist will evaluate this evening to ensure this regimen is not overly aggressive * Plan will be to titrate insulin over the next 48 hours- keeping in mind solumedrol IV bolus effects should be tapering off by tomorrow * ADA & AACE recommend a goal blood sugar range 140-180 mg/dl for the majority of critically ill & non-critically ill patients. However, more stringent targets may be selected in individual cases. 08/01/16 * Blood sugar dropped to 54mg/dL this morning, patient was asymptomatic. I instructed nurse to just allow patient to eat breakfast (73g CHO) without any Novolog carb coverage, and hold Lantus. Blood sugar now 155mg/dL prior to lunch. * Reduce Lantus dose at this time. If blood sugar trends up above 200mg/dL by dinner time I will increase Lantus. * Patient required 105 units SQ and 13 units IV insulin yesterday so I will keep overnight BSG checks tonight incase blood sugars begin to rise again. PLAN FOR INPATIENT GLYCEMIC CONTROL: * HOLD Lantus this AM * Decrease Lantus to 10 units BID starting tonight * Correctional Insulin with NOVOLOG per scale ACHS + 00,04 checks * Goal Range: Low 110 mg/dL - High 140 mg/dL * Correction Factor: 25 mg/dL/unit * Nutritional / Prandial insulin per carb ratio of 1 unit per 9 grams CHO consumed * Please note that the plan above was derived based on current level of insulin resistance and hospital stress. These recommendations are appropriate for inpatient admission only. Plan of care upon discharge will need to be reassessed to avoid potential outpatient hypo/hyperglycemia. Thank you.
--- NOTE | 2016-08-01 13:25 | PROGRESS NOTE ---
DATE: 08/01/2016 DATE: 08/01/2016. PROBLEM LIST: Includes: 1. Oxygen dependent chronic obstructive pulmonary disease with exacerbation. 2. Pneumonia. 3. Diastolic congestive heart failure. SUBJECTIVE: The patient reports that he still is having trouble with his breathing. He still feels short of breath. He still feels like he has mucus in his chest and he cannot expectorate. He has been using the CPAP a couple times and feels that it is helpful, but he has a lot of anxiety with having the mask on. He is not sure that he can tolerate the mask. That has been his main concern. He denies any other concerns or problems at this time. He denies any chest pain or palpitations. No abdominal pain, no nausea or vomiting. His bowels are moving okay, he is voiding okay. No significant swelling in his extremities. OBJECTIVE: GENERAL: The patient is a 71-year-old male lying in bed. He is not having any acute respiratory distress at this time. VITAL SIGNS: Temperature 38.6, pulse 93, respirations 24, blood pressure is 127/75, pulse ox is 91% to 97% on 3-4 liters via BiPAP. HEAD, EYES, EARS, NOSE, AND THROAT: Normocephalic, atraumatic. Pupils equal, round and reactive. NECK: Supple. No mass. No adenopathy. No bruit. No JVD, no thyromegaly, no adenopathy. CHEST: The patient has coarse rhonchi throughout the upper airways bilaterally. He does have some accessory muscle use. CARDIOVASCULAR: Irregularly irregular. No murmurs, gallops or rubs appreciated. ABDOMEN: Bowel sounds are present. Abdomen soft, nontender. No guarding, rigidity or organomegaly. EXTREMITIES: +1 edema, no erythema, no tenderness. LABORATORY DATA: Shows white count of 13,000, H\T\H 9.0 and 28.6, platelets 198. INR 2.1. No new imaging data. IMPRESSION: Mr. Carranza is a 71-year-old male with oxygen dependency COPD. At this time is having an exacerbation of pneumonia. I do believe that the patient may benefit from vibration vest or percussion therapy to try and help expectorate the mucus. As per Dr. Beaver's note we were going to try Mucomyst trial yesterday but I do not see where that has been done yet. I will add that in. I think this is the biggest issue at this time. The patient has secretions that are obstructing his airways and then if we can get these mobilized he will feel better and breathe better. At this time we will put the patient on vibration vest twice a day. Will give mild anxiolytic to help with CPAP intolerance. Also will do a trial of Mucomyst, continue to monitor. Continue to follow through hospitalization. Patient reviewed and plan agreed-on. MARLO
[2016-08-01] MEDS: WARFARIN SOD 3 MG TAB PO SCH (16:17)
[2016-08-01] MEDS: ACETYLCYSTEINE 20% INHAL SOLN ***DISPENSED BY RESP. INH SCH (19:19)
[2016-08-01] MEDS ORDERED: DILTIAZEM HCL 5 MG/ML 5 ML VIAL IV ONE (20:15)
[2016-08-01] MEDS: PAROXETINE 20 MG TAB PO SCH (21:13)
[2016-08-01] MEDS: TAMSULOSIN HCL 0.4 MG CAP PO SCH (21:14)
[2016-08-01] MEDS ORDERED: INSULIN GLARGINE SOLOSTAR 100 UNITS/ML 3 ML PEN SC ONE (21:15)
[2016-08-01] MEDS: ZOLPIDEM TARTRATE 5 MG TAB PO PRN (23:36)
[2016-08-02] VITALS (21 sets, daily range): BP systolic 108–154; BP diastolic 56–96; PULSE 72–135; TEMP 36.4–36.7; O2SAT 86–98
[2016-08-02] MEDS: ALBUT/IPRATROP 3MG/0.5MG NEB 3 ML VIAL INH SCH ×4 (00:37→19:33)
[2016-08-02] MEDS: INSULIN ASPART 100 UNITS/ML 3 ML PEN SC SCH ×5 (04:18→20:37)
[2016-08-02] MEDS: LEVOTHYROXINE 25 MCG TAB PO SCH (06:24)
[2016-08-02] MEDS: BUDESONIDE 0.5 MG/2 ML VIAL (PULMICORT) INH SCH (07:13)
[2016-08-02] MEDS: ACETYLCYSTEINE 20% INHAL SOLN ***DISPENSED BY RESP. INH SCH ×2 (07:13→19:33)
[2016-08-02] MEDS: AMOXICILLIN/CLAVULANATE TAB 875 MG TAB PO SCH (07:46)
[2016-08-02] MEDS: SUCRALFATE 1 GM/10 ML UDC PO SCH ×4 (07:46→20:35)
[2016-08-02] MEDS: GABAPENTIN 300 MG CAP PO SCH ×2 (07:47→20:35)
[2016-08-02] MEDS: CARVEDILOL 12.5 MG TAB PO SCH ×2 (07:47→20:35)
[2016-08-02] MEDS: FUROSEMIDE 20 MG TAB PO SCH ×2 (07:47→14:41)
[2016-08-02] MEDS: PANTOprazole SOD 40 MG TAB PO SCH (07:48)
[2016-08-02] MEDS: AZITHROMYCIN 250 MG TAB PO SCH (07:48)
[2016-08-02] MEDS: CYANOCOBALAMIN 500 MCG TAB (VIT B-12) PO SCH (07:48)
[2016-08-02 08:06] LABS: HEMATOCRIT 29.1 % (42-52); MEAN CELL VOLUME 88.2 fL (80-100); MEAN CORPUSCULAR HEMOGLOBIN 26.7 pg (25-34); MEAN CORPUSCULAR HGB CONC 30.2 g/dl (32-36); MEAN PLATELET VOLUME 9.3 fL (7.4-10.4); PLATELET COUNT 209 K/uL (130-400); WHITE BLOOD COUNT 9.82 K/uL (4.8-10.8)
[2016-08-02 08:13] LABS: INR 2.4 (0.9-1.1); PROTHROMBIN TIME (PATIENT) 26.2 SECONDS (9.0-12.0)
[2016-08-02 08:30] LABS: BUN/CREATININE RATIO 30.1 (10-20); CALCIUM 8.1 mg/dl (8.5-10.1); CREATININE 0.68 mg/dl (0.60-1.40); POTASSIUM 4.7 mmol/L (3.5-5.1)
[2016-08-02] MEDS ORDERED: INSULIN GLARGINE SOLOSTAR 100 UNITS/ML 3 ML PEN SC SCH ×4 (09:00→16:45)
--- NOTE | 2016-08-02 09:42 | Family Medicine Progress Note ---
Progress Note Date of Service Aug 02, 2016. Subjective Pt evaluation today including: conversation w/ patient, physical exam, chart review, lab review, review of studies Voiding: krueger catheter in place Patient was seen at the bedside. Patient continues to have problem to clear mucus secretion. He is still having SOB and he thinks it is not improving. He is tolerating food well. Denies chest pain, nausea, vomiting, abdominal pain, headache or any other additional complaints. Patient was tachycardiac overnight. Constitutional: No fever Respiratory: + cough, + dyspnea on exertion, + shortness of breath Cardiovascular: + edema, No chest pain Abdomen: No constipation, No diarrhea, No nausea, No pain, No vomiting Male : No dysuria Skin: No rash Medications Current Inpatient Medications Medications (Trade) Dose Ordered Sig/Sujatha Route Start Time Stop Time Status Last Admin Dose Admin Acetaminophen (Tylenol Tab) 650 mg Q4H PRN PO 07/31/16 01:15 08/30/16 01:14 Al Hydrox/Mg Hydrox/Simethicone (Maalox Max Susp) 15 ml Q4H PRN PO 07/31/16 01:15 08/30/16 01:14 Ondansetron HCl (Zofran Inj) 4 mg Q6H PRN IV 07/31/16 01:15 08/30/16 01:14 Nitroglycerin (Nitrostat Tab) 0.4 mg UD PRN SL 07/31/16 01:15 08/30/16 01:14 Morphine Sulfate (MoRPHine SULFATE INJ) 2 mg Q30M PRN IV 07/31/16 01:15 08/14/16 01:14 Bisacodyl (Dulcolax Supp) 5 mg PRN PRN [place] 07/31/16 01:30 08/30/16 01:29 07/31/16 20:24 5 MG Carvedilol (Coreg Tab) 12.5 mg BID PO 07/31/16 09:00 08/30/16 08:59 08/02/16 07:47 12.5 MG Cyanocobalamin (Vitamin B-12 Tab) 500 mcg DAILY PO 07/31/16 09:00 08/30/16 08:59 08/02/16 07:48 500 MCG Levothyroxine Sodium (Synthroid Tab) 25 mcg DAILYBB PO 07/31/16 06:00 08/30/16 05:59 08/02/16 06:24 25 MCG Magnesium Hydroxide (Milk Of Magnesia Susp) 30 ml HS PRN PO 07/31/16 01:30 08/30/16 01:29 07/31/16 20:24 30 ML Paroxetine HCl (pAXil TAB) 20 mg HS PO 07/31/16 21:00 08/30/16 20:59 08/01/16 21:13 20 MG Sodium Biphosphate/ Sodium Phosphate (Fleet Enema) 1 ml DAILY PRN [place] 07/31/16 01:30 08/30/16 01:29 Sucralfate (Carafate Susp) 1 gm ACHS PO 07/31/16 07:00 08/30/16 06:59 08/02/16 17:14 1 GM Tamsulosin HCl (Flomax Cap) 0.4 mg HS PO 07/31/16 21:00 08/30/16 20:59 08/01/16 21:14 0.4 MG Warfarin Sodium (Coumadin Tab) 3 mg DAILY@1600 PO 07/31/16 16:00 08/30/16 15:59 08/02/16 17:14 3 MG Insulin Aspart (novoLOG ASPART) SLIDING SCALE G... ACHS SC 07/31/16 02:30 08/30/16 02:29 08/02/16 17:15 7 UNITS Albuterol/ Ipratropium (Duoneb) 3 ml Q6R INH 07/31/16 03:00 08/30/16 02:59 08/02/16 14:10 3 ML Miscellaneous Information (Consult Glycemic Management Pharmacy) 1 ea UD PRN N/A 07/31/16 02:39 08/30/16 02:38 Insulin Aspart (novoLOG ASPART) SLIDING SCALE G... 0000,0400 SC 08/01/16 00:00 08/31/16 00:00 08/02/16 04:18 3 UNITS Miconazole Nitrate (Desenex Powder) 1 appln PRN PRN EXT 07/31/16 11:45 08/30/16 11:44 07/31/16 22:00 1 APPLN Pantoprazole Sodium (Protonix Tab) 40 mg QAM PO 08/01/16 09:00 08/31/16 08:59 08/02/16 07:48 40 MG Gabapentin (Neurontin Cap) 300 mg BID PO 07/31/16 21:00 08/30/16 20:59 08/02/16 07:47 300 MG Zolpidem Tartrate (Ambien Tab) 5 mg HS PRN PO 08/01/16 00:00 08/31/16 00:00 08/01/16 23:36 5 MG Albuterol Sulfate (Ventolin 0.083% 2.5MG/3ML Neb) 2.5 mg Q4H PRN INH 08/01/16 13:30 08/31/16 13:29 Lorazepam (Ativan Tab) 0.5 mg Q6 PRN PO 08/01/16 12:15 08/31/16 12:14 08/02/16 10:46 0.5 MG Acetylcysteine (Mucomyst 20% Inh Soln) 3 ml BIDR INH 08/01/16 20:00 08/31/16 19:59 08/02/16 07:13 3 ML Azithromycin (Zithromax Tab) 250 mg DAILY PO 08/02/16 09:00 08/07/16 08:59 08/02/16 07:48 250 MG Insulin Glargine 24 unit 24 unit HS SC 08/03/16 21:00 09/02/16 20:59 Methylprednisolone Sodium Succinate/ Syringe (Solu-Medrol IV/ Syringe) 0.96 ml @ 1.5 mls/min Q8H IV 08/02/16 18:00 09/01/16 20:59 Piperacillin Sod/ Tazobactam Sod 1 ea 1 ea UD PRN N/A 08/02/16 17:00 09/01/16 16:59 Piperacillin Sod/ Tazobactam Sod/ Dextrose (Zosyn Iv/D5 100ml) 115 ml @ 28.75 mls/ hr Q8H IV 08/02/16 23:00 08/09/16 22:59 Dornase Alan 2.5 ml 2.5 ml BIDR INH 08/02/16 20:00 09/01/16 19:59 Furosemide/Syringe (Lasix Inj/ Syringe) 2 ml @ 4 mls/min BID17 IV 08/02/16 17:30 09/01/16 17:29 Objective Vital Signs Date Time Temp Pulse Resp B/P Pulse Ox O2 Delivery O2 Flow Rate FiO2 08/02/16 15:16 36.7 90 20 108/75 97 Nasal Cannula 3.0 08/02/16 14:10 72 20 95 Nasal Cannula 3.0 08/02/16 12:03 36.4 95 20 123/75 91 Nasal Cannula 3.0 08/02/16 12:00 Nasal Cannula 3.0 08/02/16 12:00 98 24 124/77 96 Nasal Cannula 3.0 08/02/16 08:00 36.6 111 24 109/65 95 Nasal Cannula 3.0 08/02/16 08:00 Nasal Cannula 3.0 08/02/16 07:13 104 20 98 Nasal Cannula 3.0 08/02/16 04:22 36.5 116 20 140/80 97 Nasal Cannula 3.0 08/02/16 04:00 93 Nasal Cannula 3.0 08/02/16 00:37 78 22 98 Nasal Cannula 3.0 08/02/16 00:01 36.6 109 20 122/69 92 Room Air 08/01/16 23:59 93 Nasal Cannula 4.0 08/01/16 23:36 Nasal Cannula 08/01/16 22:20 107 93 4.0 08/01/16 21:07 104 129/69 08/01/16 20:55 108 124/74 08/01/16 20:40 104 111/59 08/01/16 20:26 113 101/61 08/01/16 19:19 78 22 98 Nasal Cannula 3.0 08/01/16 19:15 36.4 133 20 127/67 91 4.0 Physical Exam General Appearance: + mild distress Neck: supple, trachea midline Respiratory/Chest: chest non-tender, + respiratory distress, + decreased breath sounds, + crackles (b/l base), + wheezing (through out the lung) Cardiovascular: regular rate, rhythm Abdomen: normal bowel sounds, non tender, soft Extremities: non-tender, + pedal edema (b/l trace of edema improving), + pertinent finding (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, also don't have 4th digit of right hand) Neurologic/Psychiatric: alert, normal mood/affect, oriented x 3 Skin: normal color, warm/dry, no rash Laboratory Results Results Past 24 Hours Test 08/01/16 20:17 08/01/16 23:35 08/02/16 04:13 08/02/16 07:00 Range/Units Bedside Glucose 280 242 196 157 70-99 mg/dl Test 08/02/16 07:06 08/02/16 11:11 08/02/16 15:53 Range/Units White Blood Count 9.82 4.8-10.8 K/uL Red Blood Count 3.30 4.7-6.1 M/uL Hemoglobin 8.8 14.0-18.0 g/dL Hematocrit 29.1 42-52 % Mean Corpuscular Volume 88.2 80-100 fL Mean Corpuscular Hemoglobin 26.7 25-34 pg Mean Corpuscular Hemoglobin Concent 30.2 32-36 g/dl RDW Standard Deviation 50.9 36.4-46.3 fL RDW Coefficient of Variation 15.8 11.5-14.5 % Platelet Count 209 130-400 K/uL Mean Platelet Volume 9.3 7.4-10.4 fL Nucleated RBC Absolute Count (auto) 0.03 0-0 K/uL Nucleated Red Blood Cells % 0.3 % Prothrombin Time 26.2 9.0-12.0 SECONDS Prothromb Time International Ratio 2.4 0.9-1.1 Sodium Level 140 136-145 mmol/L Potassium Level 4.7 3.5-5.1 mmol/L Chloride Level 100 98-107 mmol/L Carbon Dioxide Level 35 21-32 mmol/L Anion Gap 5.0 3-11 mmol/L Blood Urea Nitrogen 21 7-18 mg/dl Creatinine 0.68 0.60-1.40 mg/dl Est Creatinine Clear Calc Drug Dose 107.8 ml/min Estimated GFR () 110.6 Estimated GFR (Non- 95.4 BUN/Creatinine Ratio 30.1 10-20 Random Glucose 131 70-99 mg/dl Calcium Level 8.1 8.5-10.1 mg/dl Bedside Glucose 72 220 70-99 mg/dl Assessment and Plan This is a 70 y/o male with recurrent bilateral pleural effusions, COPD with 2L O2 at home, poorly controlled DM, diastolic CHF, and hypothyroidism presented to the hospital with acute hypoxic respiratory failure. 1. Acute on chronic hypoxic respiratory failure - It could be secondary exacerbation of his COPD and/or pneumonia - Continue oxygen supplement and BiPAP - Continue intermittent vibration therapy - Continue Duoneb INH q6h and Albuterol q4h prn - D/c Pulmicort INH per Pulmonary since showed no active benefit this time - D/c Mucomyst INH per Pulmonary given it might exacerbate mucous secretion - Start Dornase INH BID - Video swallow study to rule our aspiration - Consulted Pulmonary and continue to appreciate their recommendation 2. COPD exacerbation - Patient is a current smoker - Received 125mg of Solumedrol in ED - Change Prednisone 50mg PO to IV - Continue Duoneb INH q6h with Albuterol q4h prn - Continue Pulmicort INH BID - Currently requiring oxygen supplement - Pulmonary recommended to continue with the above medication, add Spiriva and possible Roflumilast prior to d/c but not this time given his state, obtain previous PFT. 3. Hospital acquired pneumonia - CXR (07/30): Cardiomegaly with evidence of congestive failure. Perihilar airspace opacities are identified and likely represent interstitial edema.There are small pleural effusions and bibasilar consolidation. This likely represents atelectasis. Cortical clinically for evidence of superimposed pneumonia. - CXR (07/31): Mild stable cardiomegaly. Subtle increase in density of the hemithoracic and perihilar regions bilaterally. Early developing pulmonary edema is considered. Trace pleural fluid left base. - Changed Augmentin to boarder spectrum IV Zosyn given no improvement in patient - Continue azithromycin 250mg to cover atypical organisms. 4. Diastolic CHF - Recurrent pleural effusion probably secondary to CHF given it's transudate - Continue management of CHF with fluid restriction limit to 1.5L - Changed PO to IV Lasix 20 mg BID - Continue I/O and weight 5. Neuropathic pain secondary to poorly controlled DM - Start Gabapentin 300mg BID 6. Chronic Right heel ulceration - probably secondary to neuropathy - Wound care consulted and will continue to follow 7. Poorly controlled DM type 2 - On Lantus 24 unit - On sliding scale - ac/hs BSG 8. Recent H/O severe GI bleed requiring blood transfusion - Continue Carafate 1 gm and Protonix 20mg daily 9. Depression - Continue Paroxetine 20mg 10. PAF - continue warfarin 3 mg - INR is therapeutic - Continue to trend and monitor 11. BPH - Continue tamsulosin 0.4mg 12. DVT Prophylaxis - Warfarin 13. Code status - Full code History Resident Physician Supervision Note: I was present with Dr. Goodrich during the history and exam. I discussed the case with the resident and agree with the findings and plan as documented in the note. Any exceptions or clarifications are listed here. Pt seen and examined at bedside. Overnight, episode of tachycardia which was purportedly asymptomatic. Presently patient feels SOB is no better nor worse than previous, though states he is resting more comfortably and with less trouble talking or swallowing. Reports no fever, worsening paresthesia, lightheadedness, confusion. General Appearance: mild distress, obese Neck: non-tender, full range of motion, supple Respiratory: chest non-tender, respiratory distress (mild), decreased breath sounds (throughout, but somewhat improved), rhonchi (diffuse), wheezing ( diffuse and severe) Cardiovascular: normal peripheral pulses, regular rate, rhythm, no edema, no murmur Extremities: normal range of motion, normal inspection, other (trace pedal edema) Assessment/Plan 69 y/o male h/o b/l pleural effusions, COPD, DMII, CHF p/w AHRF A on CHRF - pulmonology aware and input appreciated - pulmozyme, broaden abx, continue intermittent vibration therapy, encourage BiPAP w/ SOB COPD exacerbation - continue duonebs, transition to IV steroids, d/c pulmicort HCAP - trend CBC, zosyn dCHF w/ Effusion - will monitor closely - IV lasix, I/O, daily wts, fluid restrict to 1.5L - echo completed Neuropathy - gabapentin 300mg TID, h/o considerable medication use to curb pain and mood LE wound - wound care aware Depression - continue paroxetine PAF - warfarin, trend INR, adjust PRN BPH - tamsulosin
[2016-08-02] MEDS: LORAZEPAM 0.5 MG TAB PO PRN ×2 (10:46→23:47)
--- NOTE | 2016-08-02 14:34 | Pharmacy Progress Note ---
Glycemic Control: Progress Nt Date of Service Aug 02, 2016. Scope Glycemic Pharmacist consulted by Dr Oneill on 07/31/16 for glycemic control and to write orders per [facility] inpatient glycemic control protocol. Objective Accuchecks BSG (last 24hrs): Test 08/01/16 16:15 08/01/16 20:17 08/01/16 23:35 08/02/16 04:13 Bedside Glucose 175 mg/dl (70-99) 280 mg/dl (70-99) 242 mg/dl (70-99) 196 mg/dl (70-99) Test 08/02/16 07:00 08/02/16 07:06 08/02/16 11:11 Bedside Glucose 157 mg/dl (70-99) 72 mg/dl (70-99) Random Glucose 131 mg/dl (70-99) Laboratory Data (last 24hrs) Test 08/02/16 07:06 Anion Gap 5.0 mmol/L BUN/Creatinine Ratio 30.1 Blood Urea Nitrogen 21 mg/dl Creatinine 0.68 mg/dl Potassium Level 4.7 mmol/L Sodium Level 140 mmol/L White Blood Count 9.82 K/uL HbA1c: Test 07/30/16 22:04 Hemoglobin A1c 7.6 % (4.5-5.6) H Recent Pertinent Medications Outpatient Anti-diabetic Regimen: * Lantus 24 units SQ HS * Novolin R per scale ACHS The patient is currently receiving: * Basal insulin: Lantus 20 units every 12 hours * Correctional Insulin: Novolog Correction per scale ACHS Goal Range: Low 110 mg/dL - High 140 mg/dL Correction Factor: 25 mg/dL/unit * Prandial insulin: Per carb ratio of 1 unit per 9 grams CHO consumed Risk Factors for Insulin Resistance: * Steroids * Infection * Diet Assessment & Plan ASSESSMENT: * 70yo T2DM male with adequate control of diabetes per recent A1c. Pt is on SQ basal bolus insulin regimen as an outpatient. Of note, patient also takes prednisone 10mg daily as an outpatient. * Pt uses Lantus 24units SQ HS as an outpatient. Currently, pt is ordered higher basal insulin dosing than outpatient d/t severe hyperglycemia on admission. Acute hyperglycemia seems to have resolved with tightened insulin orders. Basal insulin dosing has been decreasing accordingly also secondary to hypo on 08/01/16. Will try to work Lantus back to HS dosing only to ease transition to outpatient. * AM fasting BSG close to goal range. However, pre-lunch BSG below goal range, will "loosen" bolus insulin parameters to prevent hypo. * ADA & AACE recommend a goal blood sugar range 140-180 mg/dl for the majority of critically ill & non-critically ill patients. However, more stringent targets may be selected in individual cases. Will utilize more stringent goal range of 120-140mg/dl for a well controlled diabetic at baseline. PLAN FOR INPATIENT GLYCEMIC CONTROL: * Basal insulin with LANTUS 10 units SQ x 1 this AM then 15 units SQ x 1 dose this evening. Resume Lantus 24 units SQ HS starting 2/4 PM. * Administer 1/2 dose if BSG < 120mg/dl * Correctional Insulin with NOVOLOG per scale ACHS or Q6hrs while NPO * Goal Range: Low 120 mg/dL - High 140 mg/dL * Correction Factor: 30 mg/dL/unit * Nutritional / Prandial insulin per carb ratio of 1 unit per 10 grams CHO consumed * Please note that the plan above was derived based on current level of insulin resistance and hospital stress. These recommendations are appropriate for inpatient admission only. Plan of care upon discharge will need to be reassessed to avoid potential outpatient hypo/hyperglycemia. Thank you.
[2016-08-02] MEDS ORDERED: FUROSEMIDE INJ 20 MG in SYRINGE 0 ML IV ONE (14:45)
[2016-08-02] MEDS ORDERED: PIPERACILLIN/TAZOBACTAM 3.375 GM/100ML D5W IV STA (16:39)
[2016-08-02] MEDS ORDERED: PIPERACILL/TAZOBAC IV 3.375 GM in DEXTROSE 5% 100ML IV ONE (17:00)
[2016-08-02] MEDS ORDERED: PIPERACILL/TAZOBAC CONSULT ACTIVE PRN (17:00)
--- NOTE | 2016-08-02 17:01 | Pulmonology Progress Note ---
Pulmonary Progress Note Date of Service Aug 02, 2016. Attending Ant Beaver Subjective Patient notes continued dyspnea at rest with inability to clear her mucous secretions. Objective Patient notably be tachypneic using accessory muscles having difficulty with mucus secretion/oral secretions: Vital signs: Reviewed Respiratory: Bilateral rhonchi appreciated with crackles appreciated at the bases bilaterally Cardiac: S1-S2 very distant heart sounds unable to auscultate Sugars: No clubbing cyanosis or edema noted Assessment & Plan #1 COPD: At this time well continue his BiPAP as tolerated, and oxygen support but I suggest we get more aggressive switching his by mouth steroids to IV, and discontinuing his Pulmicort nebulizer as this will showed no active benefit at this time. We should also continue with his pulmonary toilet as tolerated as the patient has difficulty clearing his mucous secretions. Well discontinue Mucomyst at this time as it could possibly exacerbate mucous secretion and a population of patients and initiate dornase. #2 diastolic heart failure: Ultrasonic evaluation of the chest still consistent with fluid accumulation in the parenchyma suggesting diastolic heart failure in our patient recent echocardiogram performed. We have more aggressive switching the patient from by mouth Lasix to IV. Well have to continually monitor his ins and outs as well as renal function. #3 pneumonia: Patient has had multiple rounds of good antibiotics at outside hospitals currently treated with Augmentin by mouth and azithromycin. The patient seems to be worsening will discontinue Augmentin switch to broader spectrum Zosyn IV antibiotic. No growth to date a microbiology. Well not initiate vancomycin as nasal swab was negative. #4 aspiration: Patient does have difficulty clearing oral secretion with previous stroke possible silent aspiration could be occurring. Suggest at this time we performed video swallow evaluation. Data Medications: Current Inpatient Medications Medications (Trade) Dose Ordered Sig/Sujatha Route Start Time Stop Time Status Last Admin Dose Admin Acetaminophen (Tylenol Tab) 650 mg Q4H PRN PO 07/31/16 01:15 08/30/16 01:14 Al Hydrox/Mg Hydrox/Simethicone (Maalox Max Susp) 15 ml Q4H PRN PO 07/31/16 01:15 08/30/16 01:14 Ondansetron HCl (Zofran Inj) 4 mg Q6H PRN IV 07/31/16 01:15 08/30/16 01:14 Nitroglycerin (Nitrostat Tab) 0.4 mg UD PRN SL 07/31/16 01:15 08/30/16 01:14 Morphine Sulfate (MoRPHine SULFATE INJ) 2 mg Q30M PRN IV 07/31/16 01:15 08/14/16 01:14 Bisacodyl (Dulcolax Supp) 5 mg PRN PRN IN 07/31/16 01:30 08/30/16 01:29 07/31/16 20:24 5 MG Budesonide (Pulmicort Respules 0.5MG/ 2ML Neb Soln) 1 mg BIDR INH 07/31/16 08:00 08/30/16 07:59 08/02/16 07:13 1 MG Carvedilol (Coreg Tab) 12.5 mg BID PO 07/31/16 09:00 08/30/16 08:59 08/02/16 07:47 12.5 MG Cyanocobalamin (Vitamin B-12 Tab) 500 mcg DAILY PO 07/31/16 09:00 08/30/16 08:59 08/02/16 07:48 500 MCG Furosemide (Lasix Tab) 20 mg TID PO 07/31/16 09:00 08/30/16 08:59 08/02/16 14:41 20 MG Levothyroxine Sodium (Synthroid Tab) 25 mcg DAILYBB PO 07/31/16 06:00 08/30/16 05:59 08/02/16 06:24 25 MCG Magnesium Hydroxide (Milk Of Magnesia Susp) 30 ml HS PRN PO 07/31/16 01:30 08/30/16 01:29 07/31/16 20:24 30 ML Paroxetine HCl (pAXil TAB) 20 mg HS PO 07/31/16 21:00 08/30/16 20:59 08/01/16 21:13 20 MG Sodium Biphosphate/ Sodium Phosphate (Fleet Enema) 1 ml DAILY PRN IN 07/31/16 01:30 08/30/16 01:29 Sucralfate (Carafate Susp) 1 gm ACHS PO 07/31/16 07:00 08/30/16 06:59 08/02/16 11:55 1 GM Tamsulosin HCl (Flomax Cap) 0.4 mg HS PO 07/31/16 21:00 08/30/16 20:59 08/01/16 21:14 0.4 MG Warfarin Sodium (Coumadin Tab) 3 mg DAILY@1600 PO 07/31/16 16:00 08/30/16 15:59 08/01/16 16:17 3 MG Insulin Aspart (novoLOG ASPART) SLIDING SCALE G... ACHS SC 07/31/16 02:30 08/30/16 02:29 08/02/16 08:18 11 UNITS Albuterol/ Ipratropium (Duoneb) 3 ml Q6R INH 07/31/16 03:00 08/30/16 02:59 08/02/16 14:10 3 ML Miscellaneous Information (Consult Glycemic Management Pharmacy) 1 ea UD PRN N/A 07/31/16 02:39 08/30/16 02:38 Amoxicillin/ Clavulanate Potassium (Augmentin Tab) 875 mg BIDM PO 07/31/16 07:30 08/07/16 07:29 08/02/16 07:46 875 MG Insulin Aspart (novoLOG ASPART) SLIDING SCALE G... 0000,0400 SC 08/01/16 00:00 08/31/16 00:00 08/02/16 04:18 3 UNITS Miconazole Nitrate (Desenex Powder) 1 appln PRN PRN EXT 07/31/16 11:45 08/30/16 11:44 07/31/16 22:00 1 APPLN Pantoprazole Sodium (Protonix Tab) 40 mg QAM PO 08/01/16 09:00 08/31/16 08:59 08/02/16 07:48 40 MG Gabapentin (Neurontin Cap) 300 mg BID PO 07/31/16 21:00 08/30/16 20:59 08/02/16 07:47 300 MG Prednisone (PredniSONE TAB) 50 mg DAILY PO 08/01/16 09:00 08/31/16 08:59 08/02/16 07:47 50 MG Zolpidem Tartrate (Ambien Tab) 5 mg HS PRN PO 08/01/16 00:00 08/31/16 00:00 08/01/16 23:36 5 MG Albuterol Sulfate (Ventolin 0.083% 2.5MG/3ML Neb) 2.5 mg Q4H PRN INH 08/01/16 13:30 08/31/16 13:29 Lorazepam (Ativan Tab) 0.5 mg Q6 PRN PO 08/01/16 12:15 08/31/16 12:14 08/02/16 10:46 0.5 MG Acetylcysteine (Mucomyst 20% Inh Soln) 3 ml BIDR INH 08/01/16 20:00 08/31/16 19:59 08/02/16 07:13 3 ML Azithromycin (Zithromax Tab) 250 mg DAILY PO 08/02/16 09:00 08/07/16 08:59 08/02/16 07:48 250 MG Insulin Glargine (Lantus Solostar Pen) 24 unit HS SC 08/03/16 21:00 09/02/16 20:59 Insulin Glargine (Lantus Solostar Pen) 15 unit Fr@1645 SC 08/02/16 16:45 08/02/16 16:46 I & O: 24-Hour Column 08/02/16 08:00 Intake Total 840 ml Output Total 2400 ml Balance -1560 ml Vital Signs: Date Time Temp Pulse Resp B/P Pulse Ox O2 Delivery O2 Flow Rate FiO2 08/02/16 15:16 36.7 90 20 108/75 97 Nasal Cannula 3.0 08/02/16 14:10 72 20 95 Nasal Cannula 3.0 08/02/16 12:03 36.4 95 20 123/75 91 Nasal Cannula 3.0 08/02/16 12:00 Nasal Cannula 3.0 08/02/16 12:00 98 24 124/77 96 Nasal Cannula 3.0 08/02/16 08:00 36.6 111 24 109/65 95 Nasal Cannula 3.0 08/02/16 08:00 Nasal Cannula 3.0 08/02/16 07:13 104 20 98 Nasal Cannula 3.0 08/02/16 04:22 36.5 116 20 140/80 97 Nasal Cannula 3.0 08/02/16 04:00 93 Nasal Cannula 3.0 08/02/16 00:37 78 22 98 Nasal Cannula 3.0 08/02/16 00:01 36.6 109 20 122/69 92 Room Air 08/01/16 23:59 93 Nasal Cannula 4.0 08/01/16 23:36 Nasal Cannula 08/01/16 22:20 107 93 4.0 08/01/16 21:07 104 129/69 08/01/16 20:55 108 124/74 08/01/16 20:40 104 111/59 08/01/16 20:26 113 101/61 08/01/16 19:19 78 22 98 Nasal Cannula 3.0 08/01/16 19:15 36.4 133 20 127/67 91 4.0 Laboratory Results: Last 24 Hours Test 08/01/16 20:17 08/01/16 23:35 08/02/16 04:13 08/02/16 07:00 Bedside Glucose 280 mg/dl 242 mg/dl 196 mg/dl 157 mg/dl Test 08/02/16 07:06 08/02/16 11:11 08/02/16 15:53 White Blood Count 9.82 K/uL Red Blood Count 3.30 M/uL Hemoglobin 8.8 g/dL Hematocrit 29.1 % Mean Corpuscular Volume 88.2 fL Mean Corpuscular Hemoglobin 26.7 pg Mean Corpuscular Hemoglobin Concent 30.2 g/dl RDW Standard Deviation 50.9 fL RDW Coefficient of Variation 15.8 % Platelet Count 209 K/uL Mean Platelet Volume 9.3 fL Nucleated RBC Absolute Count (auto) 0.03 K/uL Nucleated Red Blood Cells % 0.3 % Prothrombin Time 26.2 SECONDS Prothromb Time International Ratio 2.4 Sodium Level 140 mmol/L Potassium Level 4.7 mmol/L Chloride Level 100 mmol/L Carbon Dioxide Level 35 mmol/L Anion Gap 5.0 mmol/L Blood Urea Nitrogen 21 mg/dl Creatinine 0.68 mg/dl Est Creatinine Clear Calc Drug Dose 107.8 ml/min Estimated GFR () 110.6 Estimated GFR (Non- 95.4 BUN/Creatinine Ratio 30.1 Random Glucose 131 mg/dl Calcium Level 8.1 mg/dl Bedside Glucose 72 mg/dl 220 mg/dl
[2016-08-02] MEDS: WARFARIN SOD 3 MG TAB PO SCH (17:14)
--- NOTE | 2016-08-02 17:39 | DIAGNOSTIC IMAGING REPORT ---
CHEST ONE VIEW PORTABLE CLINICAL HISTORY: shortness of breath dyspnea COMPARISON STUDY: 07/31/2016 FINDINGS: Moderate increase in density left hemithorax. Right lung is generally clear. Accentuation of the right basal lung markings stable to slightly improved from the prior study. IMPRESSION: Mildly progressive increase in density left hemithorax. Electronically signed by: Kaleb Saldaña M.D. 08/02/2016 5:38 PM Dictated Date/Time: 08/02/2016 5:37 PM
[2016-08-02] MEDS: FUROSEMIDE INJ 20 MG in SYRINGE 0 ML IV SCH (18:03)
[2016-08-02] MEDS: METHYLPREDNISOLONE IV 60 MG in SYRINGE 0 ML IV SCH (18:04)
[2016-08-02] MEDS: DORNASE ALFA (2500U) 2.5MG/2.5ML INH SCH (19:43)
[2016-08-02] MEDS: TAMSULOSIN HCL 0.4 MG CAP PO SCH (20:35)
[2016-08-02] MEDS: PAROXETINE 20 MG TAB PO SCH (20:35)
[2016-08-02] MEDS ORDERED: INSULIN IV INFUSION PROTOCOL SCH (21:27)
[2016-08-02] MEDS ORDERED: MODERATE STRESS LEVEL ONE (21:30)
[2016-08-02] MEDS ORDERED: INSULIN PROTOCOL GOAL RANGE ONE (21:30)
[2016-08-02] MEDS ORDERED: LIDOCAINE HCL 1% 20 ML VIAL ONE (21:47)
--- NOTE | 2016-08-02 22:07 | Critical Care Consultation ---
Critical Care Consultation Date of Consultation: Aug 02, 2016. Attending Physician: Armani Oshea MD Reason for Consultation: Hypoxic respiratory failure History of Present Illness Patient is a 71-year-old male who presented with increasing shortness of breath to [facility] emergency department. Significant past medical history for COPD, oxygen dependent, recurrent transudate of pleural effusions, diastolic congestive heart failure, poorly controlled diabetes mellitus, neuropathy, recent hospitalization at [place] 07/29/2016, pneumonia. It appears per prior records that the patient was admitted on Zosyn and Levaquin and he escalated to Augmentin while at [place], he was discharged on the with de-escalation to Augmentin and 10 mg of prednisone. His dyspnea has gotten worse over the last 24 hours, despite being on noninvasive ventilation the patient remains hypoxic. Abdomen consult it for further evaluation and management of his acute on chronic respiratory failure. When asked how he was doing today the patient replies that he is uncomfortable and scared. However he is not scared about dying and wishes to be DO NOT RESUSCITATE in event of cardiac arrest. I have discussed risks and benefits of endotracheal intubation, central venous access, arterial line placement, bronchoscopy, and blood transfusion. The patient is agreeable to all the risks and has consented. I've also filled out a POLST form indicating his wishes that he does not want to be resuscitated in event of cardiac arrest. The patient's surgery at [facility] will be his daughter ren Carranza she lives in [place], herself is [phone]. Past Medical/Surgical History As noted above Family History No pertinent family history Social History The patient drinks alcohol, not every day, has not had withdrawals He is a current smoker, 50+-pack-year history, admits to smoking marijuana Last marijuana use his last week prior to admission to the hospital, denies other recent illicit drug use. Patient is a [place] . Smoking Status: Former Smoker Drug Use: none Marital Status: single Housing Status: lives alone Occupation Status: retired Allergies Coded Allergies: No Known Allergies (Unverified , 04/30/16) Home Medications Scheduled Amoxicillin & Pot Clavulanate (Augmentin 875-125 mg), 1 TAB PO BID Bisacodyl (Dulcolax), 5 MG RE UD Budesonide (Pulmicort Respules 0.5MG/2ML), 2 ML INH BID Carvedilol (Coreg), 12.5 MG PO BID Cyanocobalamin (Vitamin B-12), 500 MCG PO DAILY Furosemide (Lasix), 20 MG PO TID Insulin Glargine (Lantus Solostar), 24 SC HS Insulin Human Regular (Novolin R), SQ ACHS Levothyroxine Sodium (Levothyroxine Sodium), 1 TAB PO DAILY Omeprazole (Prilosec), 20 MG PO DAILY Paroxetine (Paxil), 20 MG PO HS Prednisone Tab (Prednisone), 10 MG PO DAILY Sucralfate (Carafate), 10 ML PO ACHS Tamsulosin Hcl (Flomax), 1 CAP PO HS Warfarin Sod (Jantoven), 3 MG PO DAILY Scheduled PRN Acetaminophen Tab (Tylenol), 650 MG PO Q4H PRN for Pain or Fever Albuterol Sulf (Albuterol Sulfate), 3 ML INH Q4H PRN for SOB/Wheezing Magnesium Hydroxide (Milk Of Magnesia), 30 ML PO HS PRN for Constipation Sodium Phosphate/Biphosphate (Fleet Enema), 1 EA ME DAILY PRN for Constipation Current Inpatient Medications Current Inpatient Medications Medications (Trade) Dose Ordered Sig/Sujatha Route Start Time Stop Time Status Last Admin Dose Admin Acetaminophen (Tylenol Tab) 650 mg Q4H PRN PO 07/31/16 01:15 08/30/16 01:14 Al Hydrox/Mg Hydrox/Simethicone (Maalox Max Susp) 15 ml Q4H PRN PO 07/31/16 01:15 08/30/16 01:14 Ondansetron HCl (Zofran Inj) 4 mg Q6H PRN IV 07/31/16 01:15 08/30/16 01:14 Nitroglycerin (Nitrostat Tab) 0.4 mg UD PRN SL 07/31/16 01:15 08/30/16 01:14 Morphine Sulfate (MoRPHine SULFATE INJ) 2 mg Q30M PRN IV 07/31/16 01:15 08/14/16 01:14 Bisacodyl (Dulcolax Supp) 5 mg PRN PRN ME 07/31/16 01:30 08/30/16 01:29 07/31/16 20:24 5 MG Carvedilol (Coreg Tab) 12.5 mg BID PO 07/31/16 09:00 08/30/16 08:59 08/02/16 20:35 12.5 MG Cyanocobalamin (Vitamin B-12 Tab) 500 mcg DAILY PO 07/31/16 09:00 08/30/16 08:59 08/02/16 07:48 500 MCG Levothyroxine Sodium (Synthroid Tab) 25 mcg DAILYBB PO 07/31/16 06:00 08/30/16 05:59 08/02/16 06:24 25 MCG Magnesium Hydroxide (Milk Of Magnesia Susp) 30 ml HS PRN PO 07/31/16 01:30 08/30/16 01:29 07/31/16 20:24 30 ML Paroxetine HCl (pAXil TAB) 20 mg HS PO 07/31/16 21:00 08/30/16 20:59 08/02/16 20:35 20 MG Sodium Biphosphate/ Sodium Phosphate (Fleet Enema) 1 ml DAILY PRN ME 07/31/16 01:30 08/30/16 01:29 Sucralfate (Carafate Susp) 1 gm ACHS PO 07/31/16 07:00 08/30/16 06:59 08/02/16 20:35 1 GM Tamsulosin HCl (Flomax Cap) 0.4 mg HS PO 07/31/16 21:00 08/30/16 20:59 08/02/16 20:35 0.4 MG Warfarin Sodium (Coumadin Tab) 3 mg DAILY@1600 PO 07/31/16 16:00 08/30/16 15:59 08/02/16 17:14 3 MG Insulin Aspart (novoLOG ASPART) SLIDING SCALE G... ACHS SC 07/31/16 02:30 08/30/16 02:29 08/02/16 20:37 9 UNITS Albuterol/ Ipratropium (Duoneb) 3 ml Q6R INH 07/31/16 03:00 08/30/16 02:59 08/02/16 19:33 3 ML Miscellaneous Information (Consult Glycemic Management Pharmacy) 1 ea UD PRN N/A 07/31/16 02:39 08/30/16 02:38 Insulin Aspart (novoLOG ASPART) SLIDING SCALE G... 0000,0400 SC 08/01/16 00:00 08/31/16 00:00 08/02/16 04:18 3 UNITS Miconazole Nitrate (Desenex Powder) 1 appln PRN PRN EXT 07/31/16 11:45 08/30/16 11:44 07/31/16 22:00 1 APPLN Pantoprazole Sodium (Protonix Tab) 40 mg QAM PO 08/01/16 09:00 08/31/16 08:59 08/02/16 07:48 40 MG Gabapentin (Neurontin Cap) 300 mg BID PO 07/31/16 21:00 08/30/16 20:59 08/02/16 20:35 300 MG Zolpidem Tartrate (Ambien Tab) 5 mg HS PRN PO 08/01/16 00:00 08/31/16 00:00 08/01/16 23:36 5 MG Albuterol Sulfate (Ventolin 0.083% 2.5MG/3ML Neb) 2.5 mg Q4H PRN INH 08/01/16 13:30 08/31/16 13:29 Lorazepam (Ativan Tab) 0.5 mg Q6 PRN PO 08/01/16 12:15 08/31/16 12:14 08/02/16 10:46 0.5 MG Acetylcysteine (Mucomyst 20% Inh Soln) 3 ml BIDR INH 08/01/16 20:00 08/31/16 19:59 08/02/16 19:33 3 ML Azithromycin (Zithromax Tab) 250 mg DAILY PO 08/02/16 09:00 08/07/16 08:59 08/02/16 07:48 250 MG Insulin Glargine 24 unit 24 unit HS SC 08/03/16 21:00 09/02/16 20:59 Methylprednisolone Sodium Succinate/ Syringe (Solu-Medrol IV/ Syringe) 0.96 ml @ 1.5 mls/min Q8H IV 08/02/16 18:00 09/01/16 20:59 08/02/16 18:04 1.5 MLS/MIN Piperacillin Sod/ Tazobactam Sod 1 ea 1 ea UD PRN N/A 08/02/16 17:00 09/01/16 16:59 Piperacillin Sod/ Tazobactam Sod/ Dextrose (Zosyn Iv/D5 100ml) 115 ml @ 28.75 mls/ hr Q8H IV 08/02/16 23:00 08/09/16 22:59 Dornase Alan 2.5 ml 2.5 ml BIDR INH 08/02/16 20:00 09/01/16 19:59 08/02/16 19:43 2.5 ML Furosemide/Syringe (Lasix Inj/ Syringe) 2 ml @ 4 mls/min BID17 IV 08/02/16 17:30 09/01/16 17:29 08/02/16 18:03 4 MLS/MIN Review of Systems 10 point review of systems has been obtained and with the exception of the pertinent positives noted below is otherwise negative. Constitutional: No chills, No fever, No sweats Respiratory: + cough, + dyspnea at rest, + dyspnea on exertion, + shortness of breath, + sputum (difficulty and coughing up), No hemoptysis Cardiovascular: + edema, No chest pain, No orthopnea Abdomen: + pain (generalized, worse pain in his distal extremities secondary to neuropathy), No nausea, No vomiting Physical Exam Date Time Temp Pulse Resp B/P Pulse Ox O2 Delivery O2 Flow Rate FiO2 08/02/16 20:19 36.7 116 20 122/73 96 BiPAP 3.0 08/02/16 20:09 116 94 3.0 08/02/16 20:00 93 BiPAP 3.0 08/02/16 19:33 84 20 98 Nasal Cannula 3.0 08/02/16 16:00 Nasal Cannula 3.0 08/02/16 15:16 36.7 90 20 108/75 97 Nasal Cannula 3.0 08/02/16 14:10 72 20 95 Nasal Cannula 3.0 08/02/16 12:03 36.4 95 20 123/75 91 Nasal Cannula 3.0 08/02/16 12:00 Nasal Cannula 3.0 08/02/16 12:00 98 24 124/77 96 Nasal Cannula 3.0 08/02/16 08:00 36.6 111 24 109/65 95 Nasal Cannula 3.0 08/02/16 08:00 Nasal Cannula 3.0 08/02/16 07:13 104 20 98 Nasal Cannula 3.0 08/02/16 04:22 36.5 116 20 140/80 97 Nasal Cannula 3.0 08/02/16 04:00 93 Nasal Cannula 3.0 08/02/16 00:37 78 22 98 Nasal Cannula 3.0 08/02/16 00:01 36.6 109 20 122/69 92 Room Air 08/01/16 23:59 93 Nasal Cannula 4.0 08/01/16 23:36 Nasal Cannula 08/01/16 22:20 107 93 4.0 General Appearance: no apparent distress, uncomfortable Head: normocephalic, atraumatic Eyes: PERRLA, EOMI Neck: normal range of motion, no tenderness, trachea midline, no stridor Respiratory: rales, rhonchi Cardiovasular: irregular rate (heart sounds difficult to hear secondary to the Rales and rhonchi of the lungs) Abdomen: non tender, normal bowel sounds, no rebound, no masses Neuro: alert, oriented x 3 Laboratory Results Last 24 Hours Test 08/01/16 23:35 08/02/16 04:13 08/02/16 07:00 08/02/16 07:06 Bedside Glucose 242 mg/dl 196 mg/dl 157 mg/dl White Blood Count 9.82 K/uL Red Blood Count 3.30 M/uL Hemoglobin 8.8 g/dL Hematocrit 29.1 % Mean Corpuscular Volume 88.2 fL Mean Corpuscular Hemoglobin 26.7 pg Mean Corpuscular Hemoglobin Concent 30.2 g/dl RDW Standard Deviation 50.9 fL RDW Coefficient of Variation 15.8 % Platelet Count 209 K/uL Mean Platelet Volume 9.3 fL Nucleated RBC Absolute Count (auto) 0.03 K/uL Nucleated Red Blood Cells % 0.3 % Prothrombin Time 26.2 SECONDS Prothromb Time International Ratio 2.4 Sodium Level 140 mmol/L Potassium Level 4.7 mmol/L Chloride Level 100 mmol/L Carbon Dioxide Level 35 mmol/L Anion Gap 5.0 mmol/L Blood Urea Nitrogen 21 mg/dl Creatinine 0.68 mg/dl Est Creatinine Clear Calc Drug Dose 107.8 ml/min Estimated GFR () 110.6 Estimated GFR (Non- 95.4 BUN/Creatinine Ratio 30.1 Random Glucose 131 mg/dl Calcium Level 8.1 mg/dl Test 08/02/16 11:11 08/02/16 15:53 08/02/16 20:24 08/02/16 20:25 Bedside Glucose 72 mg/dl 220 mg/dl 388 mg/dl 407 mg/dl Diagnostic Results * Name: MESHA CARRANZA Study Date: 07/31/2016 08:16 AM BP: 149/76 mmHg * Patient Location: [facility]\S\S236\S\1 HR: 97 * : 1945 (M/d/yyyy) Gender: Male Height: 72 in * Age: 70 yrs Ethnicity: [place] Weight: 206 lb * Ordering Physician: Glory Davison * Referring Physician: Self, Referred * Performed By: Jovanna Holly RDCS * * Reason For Study: SOB, CONGESTION ON CHEST XRAY * BSA: 2.2 m2 * History: SOB, CONGESTION ON CXR * -- Conclusions -- * The left ventricle is borderline dilated. * Ejection Fraction = 50-55%. * Left ventricular systolic function is low normal. * There is mild global hypokinesis of the left ventricle. * There is mild concentric left ventricular hypertrophy. * There is moderate tricuspid regurgitation. * Right ventricular systolic pressure is elevated at 30-40mmHg. * The right atrium is mild to moderately dilated. * The inferior vena cava is moderately dilated. Procedure Details * A complete two-dimensional transthoracic echocardiogram was performed (2D, M- mode, Doppler and color flow Doppler). Left Ventricle * The left ventricle is borderline dilated. * There is mild concentric left ventricular hypertrophy. * Ejection Fraction = 50-55%. * Left ventricular systolic function is low normal. * There is mild global hypokinesis of the left ventricle. Right Ventricle * The right ventricle is normal in size and function. Atria * The left atrium is moderately dilated. * The right atrium is mild to moderately dilated. Tricuspid Valve * The tricuspid valve is normal in structure and function. * There is moderate tricuspid regurgitation. * Right ventricular systolic pressure is elevated at 30-40mmHg. Aortic Valve * Mild aortic regurgitation. Great Vessels * The aortic root is normal size. * No obvious dissection could be visualized. * The pulmonary artery is normal size. Pericardium/Pleural * There is no pericardial effusion. Great Vessels * The inferior vena cava is moderately dilated. EKG dated 08/02/2016 0 840 in the morning: Atrial fibrillation with a rate of [address] segment abnormalities, abnormal EKG. CHEST ONE VIEW PORTABLE CLINICAL HISTORY: shortness of breath dyspnea COMPARISON STUDY: 07/31/2016 FINDINGS: Moderate increase in density left hemithorax. Right lung is generally clear. Accentuation of the right basal lung markings stable to slightly improved from the prior study. IMPRESSION: Mildly progressive increase in density left hemithorax. Electronically signed by: Kaleb Saldaña M.D. I have independently reviewed the chest x-ray images Assessment & Plan (1) Acute chronic obstructive pulmonary disease with respiratory failure (2) COPD exacerbation (3) Subtherapeutic international normalized ratio (INR) (4) Pleural effusion (5) Hypoxia (6) Diabetes (7) Neuropathy (8) Hyperglycemia (9) Chronic pain (10) Marijuana smoker, continuous (11) Smoker (12) Social alcohol use Neuro: - Chronic pain secondary to neuropathy - Continue current pain regimen Cardiovascular: - Atrial fibrillation with RVR - Increased Coreg from 12.5-25 twice a day - On Coumadin - Evidence of volume overload - Suggestion of EF preserved heart failure Pulmonary - Acute on chronic COPD exacerbation - Gold [facility] - Acute on chronic respiratory failure with hypoxia and hypercarbia - Active smoker , tobacco - Active smoker, marijuana - Continue aggressive pulmonary toilet - Advocated that patient where CPAP increased settings to 12/8, patient refuses to wear due to intolerance - Patient is able to wear high flow nasal cannula - Continue steroids - Possible hospital-acquired pneumonia - On azithromycin and Zosyn, will finish a seven-day course - Pleural effusions - Anticipate drainage tomorrow Abdomen - Possible silent aspiration - Barium swallow study pending - I had extensive discussion with the patient and the patient's daughter regarding his risk of eating well possibly silently aspirating. No circumstances as the patient want a feeding tube for any long-term hydration or nutrition nor at this time. Patient understands that he may be at risk of aspiration and developing pneumonitis and pneumonia which may prompt him further pulmonary decompensation which will require intubation. Patient is willing to accept these risks. Renal - Volume overload - Aggressive diuresis with electrolyte repletion Hematology - On Coumadin for A. fib - Hold as patient is on antibiotics Endocrine - Poorly controlled diabetes mellitus type 2 - Hyperglycemia into the 400s - On steroids for COPD exacerbation - Started insulin drip per protocol Infectious disease - Possible pneumonia - Blood cultures pending - Continue Zosyn and azithromycin for 7 day course. Prophylaxis: Coumadin Lines: Peripheral IVs and left radial arterial line for frequent lab draws and blood gases CODE STATUS: Limited code, no CPR no intubation if not breathing and no pulse Had an extensive discussion with the patient and the patient's daughter, accordingly have filled out a POLST form regarding his wishes. He does desire aggressive care including central venous axis, arterial line, bronchoscopy, chest for Hitchcock me, blood transfusions. He is agreeable with antibiotics in the short-term as well as a trial of hydration and nutrition. Patient does not desire to be On life support for any extended period. Patient does not want CPR or heroic measures done in event of cardiac arrest. Patient is designated his daughter as his healthcare surrogate. I have personally spent 70 minutes of critical care time in the direct management of this patient. This is a life/limb threatening event. This includes time spent evaluating patient, direct bedside care, chart review, placing orders, interpretation of diagnostic studies, discussion with consultants, patient, and family members, as well as other required patient management activities. This time is exclusive of all separately billable procedures, and teaching time and separate from and in addition to any other critical care service time.
--- NOTE | 2016-08-02 22:10 | Procedure Note ---
Procedure Note Procedure Date Aug 02, 2016. Procedure Description Procedure Name: Arterial line Procedure time out: side/site verified, patient ID confirmed, correct procedure Consent obtained: written Time of procedure: 21:30 Performed by: attending Indications: diagnostic Contraindications: none Description: Patient's left wrist was prepped and draped with chlorhexidine and sterile fashion, 1 mL of 1% lidocaine was used to anesthetize the area, a 20-gauge arrow catheter was inserted into the left radial artery, good blood return was noted a self-contained wire was inserted into the wrist and the catheter was inserted by modified Seldinger technique. There was trace blood loss, patient tolerated the procedure well. Complications: none Patient tolerated procedure: well Post-procedure vital signs: reviewed and stable
[2016-08-02] MEDS ORDERED: GLUCAGON FOR INJ 1 MG VIAL SQ PRN (22:15)
[2016-08-02] MEDS ORDERED: GLUCOSE 10 TABS/TUBE PO PRN (22:15)
[2016-08-02] MEDS ORDERED: GLUCOSE 40% GEL 15 GM TUBE PO PRN (22:15)
[2016-08-02] MEDS ORDERED: DEXTROSE 50% 50 ML SYR IV PRN (22:15)
[2016-08-02] MEDS ORDERED: INSULIN HUMAN REGULAR IV BOLUS 2.5 UNIT in SYRINGE 0 ML IV SCH (22:15)
[2016-08-02] MEDS: INSULIN REGULAR 250 UNITS in SODIUM CHLORIDE 0.9% 250ML 250 ML IV SCH (22:25)
[2016-08-02 22:51] LABS: ISTAT ARTERIAL BLOOD GAS HCO3 31 meq/L (19-24); ISTAT ARTERIAL BLOOD GAS PCO2 48 mmHg (35-46); ISTAT ARTERIAL BLOOD GAS PO2 80 mmHg (80-95); ISTAT ARTERIAL BLOOD GAS pH 7.42 (7.35-7.45); ISTAT CARBON DIOXIDE 33 mEq/l (24-31); ISTAT DELIVERY SYSTEM Hi Flo Can; ISTAT FIO2 30 %; ISTAT SITE Art Line
[2016-08-02] MEDS ORDERED: POTASSIUM CHLORIDE 10 MEQ TABCR PO STA (23:42)
[2016-08-02] MEDS ORDERED: FUROSEMIDE INJ 60 MG in SYRINGE 0 ML IV STA (23:42)
[2016-08-02] MEDS ORDERED: CARVEDILOL 12.5 MG TAB PO ONE (23:45)
[2016-08-02] MEDS: ZOLPIDEM TARTRATE 5 MG TAB PO PRN (23:47)
[2016-08-02] MEDS: PIPERACILL/TAZOBAC IV 3.375 GM in DEXTROSE 5% 100ML IV SCH (23:59)
[2016-08-03] VITALS (29 sets, daily range): BP systolic 89–156; BP diastolic 58–83; PULSE 81–118; TEMP 36.4–36.9; O2SAT 76–100
[2016-08-03] MEDS ORDERED: ACETAZOLAMIDE IV PUSH 500 MG in SYRINGE 0 ML IV ONE (00:30)
[2016-08-03] MEDS: METHYLPREDNISOLONE IV 60 MG in SYRINGE 0 ML IV SCH ×3 (02:00→17:11)
[2016-08-03] MEDS: ALBUT/IPRATROP 3MG/0.5MG NEB 3 ML VIAL INH SCH ×4 (02:07→20:02)
[2016-08-03 05:21] LABS: ISTAT ARTERIAL BLOOD GAS HCO3 33 meq/L (19-24); ISTAT ARTERIAL BLOOD GAS PCO2 55 mmHg (35-46); ISTAT ARTERIAL BLOOD GAS PO2 76 mmHg (80-95); ISTAT ARTERIAL BLOOD GAS pH 7.39 (7.35-7.45); ISTAT CARBON DIOXIDE 35 mEq/l (24-31); ISTAT DELIVERY SYSTEM Hi Flo Can; ISTAT FIO2 30 %; ISTAT SITE Art Line
[2016-08-03 05:26] LABS: HEMATOCRIT 26.6 % (42-52); MEAN CELL VOLUME 86.1 fL (80-100); MEAN CORPUSCULAR HEMOGLOBIN 27.5 pg (25-34); MEAN PLATELET VOLUME 9.5 fL (7.4-10.4); PLATELET COUNT 186 K/uL (130-400); RED BLOOD COUNT 3.09 M/uL (4.7-6.1); WHITE BLOOD COUNT 7.12 K/uL (4.8-10.8)
[2016-08-03 05:41] LABS: PROTHROMBIN TIME (PATIENT) 44.5 SECONDS (9.0-12.0)
[2016-08-03 05:45] LABS: INR 3.9 (0.9-1.1)
[2016-08-03 05:48] LABS: ALT/SGPT 24 U/L (12-78); AST/SGOT 5 U/L (15-37); BLOOD UREA NITROGEN 25 mg/dl (7-18); BUN/CREATININE RATIO 34.8 (10-20); CALCIUM 7.5 mg/dl (8.5-10.1); CARBON DIOXIDE 34 mmol/L (21-32); CHLORIDE 102 mmol/L (98-107); CREATININE 0.72 mg/dl (0.60-1.40); GLUCOSE 182 mg/dl (70-99); POTASSIUM 3.5 mmol/L (3.5-5.1); SODIUM 143 mmol/L (136-145)
[2016-08-03 05:54] LABS: ALKALINE PHOSPHATASE 115 U/L (45-117); PHOSPHORUS 3.4 mg/dl (2.5-4.9)
[2016-08-03] MEDS: LEVOTHYROXINE 25 MCG TAB PO SCH (06:00)
[2016-08-03] MEDS: SUCRALFATE 1 GM/10 ML UDC PO SCH ×4 (06:53→20:13)
--- NOTE | 2016-08-03 07:33 | DIAGNOSTIC IMAGING REPORT ---
CHEST ONE VIEW PORTABLE CLINICAL HISTORY: respiratory failure dyspnea COMPARISON STUDY: 08/02/2016 FINDINGS: Unchanging increase in density left hemithorax. Mild prominence right basilar parenchymal markings unchanged. Right mid to upper lung is clear. IMPRESSION: No change in the radiographic evaluation of the chest. Persistent increase in density left hemithorax. Electronically signed by: Kaleb Saldaña M.D. 08/03/2016 7:31 AM Dictated Date/Time: 08/03/2016 7:31 AM
[2016-08-03] MEDS: DORNASE ALFA (2500U) 2.5MG/2.5ML INH SCH ×2 (08:00→20:08)
[2016-08-03] MEDS: ACETYLCYSTEINE 20% INHAL SOLN ***DISPENSED BY RESP. INH SCH ×2 (08:00→20:02)
[2016-08-03] MEDS ORDERED: INSULIN ASPART 100 UNITS/ML 3 ML PEN SC SCH (08:00)
[2016-08-03] MEDS: AZITHROMYCIN 250 MG TAB PO SCH (08:16)
[2016-08-03] MEDS: PANTOprazole SOD 40 MG TAB PO SCH (08:16)
[2016-08-03] MEDS: GABAPENTIN 300 MG CAP PO SCH ×2 (08:17→20:13)
[2016-08-03] MEDS: CARVEDILOL 25 MG TAB PO SCH ×2 (08:17→20:12)
[2016-08-03] MEDS: CYANOCOBALAMIN 500 MCG TAB (VIT B-12) PO SCH (08:17)
[2016-08-03] MEDS: PIPERACILL/TAZOBAC IV 3.375 GM in DEXTROSE 5% 100ML IV SCH ×3 (08:18→23:12)
[2016-08-03] MEDS: POTASSIUM CHLR 10 MEQ / WTR 10 MEQ in PREMIXED WATER 100 ML IV SCH ×2 (08:40→09:54)
[2016-08-03] MEDS: SPIRONOLACTONE 25 MG TAB PO SCH (08:43)
[2016-08-03] MEDS: ALBUMIN HUMAN 25% 12.5 GM/50 ML VIAL IV SCH ×2 (08:54→09:08)
[2016-08-03] MEDS: ACETAZOLAMIDE IV PUSH 500 MG in SYRINGE 0 ML IV SCH ×2 (08:58→21:36)
[2016-08-03] MEDS ORDERED: MAGNESIUM SULFATE 1GM / D5W 1 GM in PREMIXED IN D5W 100 ML IV ONE (09:00)
[2016-08-03] MEDS: POTASSIUM CHLORIDE 20 MEQ TABCR PO SCH ×2 (09:54→20:13)
[2016-08-03] MEDS ORDERED: FUROSEMIDE 40 MG/4 ML VIAL ONE (09:58)
[2016-08-03] MEDS: FUROSEMIDE INJ 20 MG in SYRINGE 0 ML IV SCH ×2 (10:01→17:11)
[2016-08-03] MEDS ORDERED: FENTANYL CITRATE INJ 50 MCG/1 ML 2 ML VIAL IV SCH (10:30)
[2016-08-03] MEDS: LORAZEPAM 0.5 MG TAB PO PRN (10:36)
[2016-08-03] MEDS: INSULIN REGULAR 250 UNITS in SODIUM CHLORIDE 0.9% 250ML 250 ML IV SCH (11:30)
--- NOTE | 2016-08-03 12:21 | Pulmonology Progress Note ---
Pulmonary Progress Note Date of Service Aug 03, 2016. Attending Ant Beaver Subjective Patient notably forgetful today continuing to note severe dyspnea on exertion: Vital signs: Stable Patient on high flow oxygen: 30%/30 L Respiratory: Does to percussion and crackles at the baseline bilaterally left greater than right with rhonchi diffusely cardiac: S1-S2 very distant heart sounds unable to auscultate Abdomen: Positive bowel sounds, soft nontender no rebound Thoracic ultrasound: B-lines are noted throughout the right left hemithoraces as well as at the apex with bilateral pleural effusions left greater than right Objective Patient notably be tachypneic using accessory muscles having difficulty with mucus secretion/oral secretions: Vital signs: Reviewed Respiratory: Bilateral rhonchi appreciated with crackles appreciated at the bases bilaterally Cardiac: S1-S2 very distant heart sounds unable to auscultate Sugars: No clubbing cyanosis or edema noted Assessment & Plan #1 COPD: Per records patient has GOLD Group II. This information would not do any acute adjustments in his current medical regimen. We'll also continue aggressive pulmonary toilet as tolerated. #2 Diastolic Heart Failure: Ultrasonic thoracic evaluation today shows signs of continued pulmonary edema with new records suggesting patient is only Gold group II is highly probable that his diastolic heart failure is causing a great deal of his current respiratory insufficiency. Currently on BiPAP and aggressive diuresis. #3 Pneumonia: Antibiotics were increased over the last 24 hours for broader spectrum to Zosyn. #4 Aspiration: Pending final results of swallow evaluation per patient he clearly swallow evaluation. We'll continue on aspiration watch. #5 global: Agree with patient being placed is a DNR/DNI by Dr. Nam Suarez of the ICU team Data Medications: Current Inpatient Medications Medications (Trade) Dose Ordered Sig/Sujatha Route Start Time Stop Time Status Last Admin Dose Admin Acetaminophen (Tylenol Tab) 650 mg Q4H PRN PO 07/31/16 01:15 08/30/16 01:14 Al Hydrox/Mg Hydrox/Simethicone (Maalox Max Susp) 15 ml Q4H PRN PO 07/31/16 01:15 08/30/16 01:14 Ondansetron HCl (Zofran Inj) 4 mg Q6H PRN IV 07/31/16 01:15 08/30/16 01:14 Nitroglycerin (Nitrostat Tab) 0.4 mg UD PRN SL 07/31/16 01:15 08/30/16 01:14 Morphine Sulfate (MoRPHine SULFATE INJ) 2 mg Q30M PRN IV 07/31/16 01:15 08/14/16 01:14 Bisacodyl (Dulcolax Supp) 5 mg PRN PRN AR 07/31/16 01:30 08/30/16 01:29 07/31/16 20:24 5 MG Cyanocobalamin (Vitamin B-12 Tab) 500 mcg DAILY PO 07/31/16 09:00 08/30/16 08:59 08/03/16 08:17 500 MCG Levothyroxine Sodium (Synthroid Tab) 25 mcg DAILYBB PO 07/31/16 06:00 08/30/16 05:59 08/03/16 06:00 25 MCG Magnesium Hydroxide (Milk Of Magnesia Susp) 30 ml HS PRN PO 07/31/16 01:30 08/30/16 01:29 07/31/16 20:24 30 ML Paroxetine HCl (pAXil TAB) 20 mg HS PO 07/31/16 21:00 08/30/16 20:59 08/02/16 20:35 20 MG Sodium Biphosphate/ Sodium Phosphate (Fleet Enema) 1 ml DAILY PRN AR 07/31/16 01:30 08/30/16 01:29 Sucralfate (Carafate Susp) 1 gm ACHS PO 07/31/16 07:00 08/30/16 06:59 08/03/16 10:39 1 GM Tamsulosin HCl (Flomax Cap) 0.4 mg HS PO 07/31/16 21:00 08/30/16 20:59 08/02/16 20:35 0.4 MG Warfarin Sodium (Coumadin Tab) 3 mg DAILY@1600 PO 07/31/16 16:00 08/30/16 15:59 Future Hold 08/02/16 17:14 3 MG Albuterol/ Ipratropium (Duoneb) 3 ml Q6R INH 07/31/16 03:00 08/30/16 02:59 08/03/16 08:00 3 ML Miscellaneous Information (Consult Glycemic Management Pharmacy) 1 ea UD PRN N/A 07/31/16 02:39 08/30/16 02:38 Miconazole Nitrate (Desenex Powder) 1 appln PRN PRN EXT 07/31/16 11:45 08/30/16 11:44 07/31/16 22:00 1 APPLN Pantoprazole Sodium (Protonix Tab) 40 mg QAM PO 08/01/16 09:00 08/31/16 08:59 08/03/16 08:16 40 MG Gabapentin (Neurontin Cap) 300 mg BID PO 07/31/16 21:00 08/30/16 20:59 08/03/16 08:17 300 MG Zolpidem Tartrate (Ambien Tab) 5 mg HS PRN PO 08/01/16 00:00 08/31/16 00:00 08/02/16 23:47 5 MG Albuterol Sulfate (Ventolin 0.083% 2.5MG/3ML Neb) 2.5 mg Q4H PRN INH 08/01/16 13:30 08/31/16 13:29 Lorazepam (Ativan Tab) 0.5 mg Q6 PRN PO 08/01/16 12:15 08/31/16 12:14 08/03/16 10:36 0.5 MG Acetylcysteine (Mucomyst 20% Inh Soln) 3 ml BIDR INH 08/01/16 20:00 08/31/16 19:59 08/03/16 08:00 3 ML Azithromycin 250 mg 250 mg DAILY PO 08/02/16 09:00 08/07/16 08:59 08/03/16 08:16 250 MG Methylprednisolone Sodium Succinate/ Syringe (Solu-Medrol IV/ Syringe) 0.96 ml @ 1.5 mls/min Q8H IV 08/02/16 18:00 09/01/16 20:59 08/03/16 10:01 1.5 MLS/MIN Piperacillin Sod/ Tazobactam Sod 1 ea 1 ea UD PRN N/A 08/02/16 17:00 09/01/16 16:59 Piperacillin Sod/ Tazobactam Sod/ Dextrose (Zosyn Iv/D5 100ml) 115 ml @ 28.75 mls/ hr Q8H IV 08/02/16 23:00 08/09/16 22:59 08/03/16 08:18 28.75 MLS/HR Dornase Alan 2.5 ml 2.5 ml BIDR INH 08/02/16 20:00 09/01/16 19:59 08/03/16 08:00 2.5 ML Furosemide/Syringe (Lasix Inj/ Syringe) 2 ml @ 4 mls/min BID17 IV 08/02/16 17:30 09/01/16 17:29 Future hold 08/02/16 18:03 4 MLS/MIN Insulin Aspart SLIDING SCALE PCHS SC 08/03/16 08:00 09/02/16 07:59 08/03/16 08:34 5 UNITS Insulin Human Regular/Sodium Chloride (novoLIN-R/Nss 250ml) 252.5 ml @ 0 mls/hr DAILY@1130 IV 08/02/16 22:15 09/01/16 22:14 08/02/16 22:25 2.3 MLS/HR Glucose (Glucose 40% Gel) UD PRN PO 08/02/16 22:15 09/01/16 22:14 Glucose (Glucose Chew Tab) 1 tabs UD PRN PO 08/02/16 22:15 09/01/16 22:14 Dextrose (Dextrose 50% 50ML Syringe) 50 ml UD PRN IV 08/02/16 22:15 09/01/16 22:14 Glucagon (Glucagon Inj) 1 mg UD PRN SQ 08/02/16 22:15 09/01/16 22:14 Carvedilol (Coreg Tab) 25 mg BID PO 08/03/16 09:00 09/02/16 08:59 08/03/16 08:17 25 MG Potassium Chloride 40 meq 40 meq BID PO 08/03/16 09:00 08/03/16 21:01 08/03/16 09:54 40 MEQ Acetazolamide Sodium/Syringe (Diamox IV Push/ Syringe) 5 ml @ 5 mls/min BID IV 08/03/16 09:00 08/03/16 21:00 08/03/16 08:58 5 MLS/MIN Spironolactone (Aldactone Tab) 25 mg QAM PO 08/03/16 09:00 09/02/16 08:59 08/03/16 08:43 25 MG Docusate Sodium (coLACE CAP) 100 mg BID PRN PO 08/03/16 08:30 09/02/16 08:29 Lorazepam (Ativan Tab) 1 mg BID PRN PO 08/03/16 08:30 09/02/16 08:29 I & O: 24-Hour Column 08/03/16 08:00 Intake Total 1063 ml Output Total 4900 ml Balance -3837 ml Vital Signs: Date Time Temp Pulse Resp B/P Pulse Ox O2 Delivery O2 Flow Rate FiO2 08/03/16 09:00 105 17 91 08/03/16 08:58 36.4 116 19 120/71 93 High Flow Oxygen 30 08/03/16 08:01 102 18 95 Nasal Cannula 30.0 08/03/16 08:00 95 High Flow Oxygen 08/03/16 08:00 86 25 93 08/03/16 07:00 117 19 08/03/16 06:06 102 16 111/63 96 High Flow Oxygen 08/03/16 04:58 103 17 114/61 95 08/03/16 04:00 94 High Flow Oxygen BiPAP 08/03/16 03:58 36.6 102 16 89/59 93 High Flow Oxygen 08/03/16 02:58 91 18 102/65 96 08/03/16 01:58 111 23 111/74 92 High Flow Oxygen 08/03/16 00:00 36.6 114 20 137/59 96 High Flow Oxygen BiPAP 08/03/16 00:00 92 High Flow Oxygen BiPAP 08/02/16 23:58 103 23 121/62 95 08/02/16 23:05 135 95 3.0 08/02/16 22:58 121 21 130/79 96 High Flow Oxygen 30 08/02/16 22:00 36.4 107 21 152/57 98 Nasal Cannula 4.0 08/02/16 21:58 95 19 154/56 86 08/02/16 21:45 103 20 87 08/02/16 21:33 120 21 110/96 08/02/16 20:19 36.7 116 20 122/73 96 BiPAP 3.0 08/02/16 20:09 116 94 3.0 08/02/16 20:00 93 BiPAP 3.0 08/02/16 19:33 84 20 98 Nasal Cannula 3.0 08/02/16 16:00 Nasal Cannula 3.0 08/02/16 15:16 36.7 90 20 108/75 97 Nasal Cannula 3.0 08/02/16 14:10 72 20 95 Nasal Cannula 3.0 Laboratory Results: Last 24 Hours Test 08/02/16 15:53 08/02/16 20:24 08/02/16 20:25 08/02/16 21:57 Bedside Glucose 220 mg/dl 388 mg/dl 407 mg/dl 401 mg/dl Test 08/02/16 22:39 08/02/16 23:35 08/03/16 00:44 08/03/16 02:07 Blood Gas Sample Site Art Line Bedside Blood Gas pH (LAB) 7.42 Bedside Blood Gas pCO2 (LAB) 48 mmHg Bedside Blood Gas pO2 (LAB) 80 mmHg Bedside Blood Gas HCO3 (LAB) 31 meq/L Bedside Blood Gas Total CO2 33 mEq/l Bedside Blood Gas Base Excess (LAB) 7.0 meq/L Bedside Blood Gas O2 Saturation 96.0 % Kranthi Test NA Oxygen Delivery Device Hi Ritesh Can Bedside FiO2 30 % Bedside Glucose 294 mg/dl 241 mg/dl 210 mg/dl Test 08/03/16 03:04 08/03/16 04:04 08/03/16 04:50 08/03/16 04:51 Bedside Glucose 192 mg/dl 190 mg/dl 187 mg/dl White Blood Count 7.12 K/uL Red Blood Count 3.09 M/uL Hemoglobin 8.5 g/dL Hematocrit 26.6 % Mean Corpuscular Volume 86.1 fL Mean Corpuscular Hemoglobin 27.5 pg Mean Corpuscular Hemoglobin Concent 32.0 g/dl RDW Standard Deviation 49.1 fL RDW Coefficient of Variation 15.6 % Platelet Count 186 K/uL Mean Platelet Volume 9.5 fL Nucleated RBC Absolute Count (auto) 0.04 K/uL Nucleated Red Blood Cells % 0.5 % Prothrombin Time 44.5 SECONDS Prothromb Time International Ratio 3.9 Sodium Level 143 mmol/L Potassium Level 3.5 mmol/L Chloride Level 102 mmol/L Carbon Dioxide Level 34 mmol/L Anion Gap 7.0 mmol/L Blood Urea Nitrogen 25 mg/dl Creatinine 0.72 mg/dl Est Creatinine Clear Calc Drug Dose 101.8 ml/min Estimated GFR () 108.0 Estimated GFR (Non- 93.2 BUN/Creatinine Ratio 34.8 Random Glucose 182 mg/dl Calcium Level 7.5 mg/dl Phosphorus Level 3.4 mg/dl Magnesium Level 2.0 mg/dl Total Bilirubin 0.2 mg/dl Direct Bilirubin < 0.1 mg/dl Aspartate Amino Transf (AST/SGOT) 5 U/L Alanine Aminotransferase (ALT/SGPT) 24 U/L Alkaline Phosphatase 115 U/L Total Protein 4.8 gm/dl Albumin 2.0 gm/dl Test 08/03/16 05:10 08/03/16 06:01 08/03/16 07:05 08/03/16 08:22 Blood Gas Sample Site Art Line Bedside Blood Gas pH (LAB) 7.39 Bedside Blood Gas pCO2 (LAB) 55 mmHg Bedside Blood Gas pO2 (LAB) 76 mmHg Bedside Blood Gas HCO3 (LAB) 33 meq/L Bedside Blood Gas Total CO2 35 mEq/l Bedside Blood Gas Base Excess (LAB) 8.0 meq/L Bedside Blood Gas O2 Saturation 95.0 % Kranthi Test NA Oxygen Delivery Device Hi Ritesh Can Bedside FiO2 30 % Bedside Glucose 182 mg/dl 200 mg/dl 216 mg/dl Test 08/03/16 09:28 08/03/16 11:09 08/03/16 11:51 Bedside Glucose 230 mg/dl 142 mg/dl
--- NOTE | 2016-08-03 15:20 | Pharmacy Progress Note ---
Glycemic Control: Progress Nt Date of Service Aug 03, 2016. Scope Glycemic Pharmacist consulted for glycemic control and to write orders per [facility] inpatient glycemic control protocol. Objective Accuchecks BSG (last 24hrs): Test 08/02/16 15:53 08/02/16 20:24 08/02/16 20:25 08/02/16 21:57 Bedside Glucose 220 mg/dl (70-99) 388 mg/dl (70-99) 407 mg/dl (70-99) 401 mg/dl (70-99) Test 08/02/16 23:35 08/03/16 00:44 08/03/16 02:07 08/03/16 03:04 Bedside Glucose 294 mg/dl (70-99) 241 mg/dl (70-99) 210 mg/dl (70-99) 192 mg/dl (70-99) Test 08/03/16 04:04 08/03/16 04:50 08/03/16 04:51 08/03/16 06:01 Bedside Glucose 190 mg/dl (70-99) 187 mg/dl (70-99) 182 mg/dl (70-99) Random Glucose 182 mg/dl (70-99) Test 08/03/16 07:05 08/03/16 08:22 08/03/16 09:28 08/03/16 11:09 Bedside Glucose 200 mg/dl (70-99) 216 mg/dl (70-99) 230 mg/dl (70-99) 142 mg/dl (70-99) Test 08/03/16 12:11 08/03/16 12:33 08/03/16 12:52 08/03/16 14:25 Bedside Glucose 97 mg/dl (70-99) 108 mg/dl (70-99) 127 mg/dl (70-99) 148 mg/dl (70-99) Laboratory Data (last 24hrs) Test 08/03/16 04:50 Anion Gap 7.0 mmol/L BUN/Creatinine Ratio 34.8 Blood Urea Nitrogen 25 mg/dl Creatinine 0.72 mg/dl Potassium Level 3.5 mmol/L Sodium Level 143 mmol/L White Blood Count 7.12 K/uL HbA1c: Test 07/30/16 22:04 Hemoglobin A1c 7.6 % (4.5-5.6) H Recent Pertinent Medications Outpatient Anti-diabetic Regimen: * Lantus 24 units SQ HS * Novolin R per scale ACHS The patient is currently receivin08/02/16 PM, started on IV Insulin infusion per protocol for severe hyperglycemia Goal range = 120-180mg/dl Was previously receiving 08/02/16: * Basal insulin: Lantus 10 units every morning and 15 units every evening * Correctional Insulin: Novolog Correction per scale ACHS Goal Range: Low 120 mg/dL - High 140 mg/dL Correction Factor: 30 mg/dL/unit * Prandial insulin: Per carb ratio of 1 unit per 10 grams CHO consumed Risk Factors for Insulin Resistance: * Steroids * Infection * Diet Assessment & Plan ASSESSMENT: * Pt was receiving ~ 50 units of insulin per day with near-adequate control. However, 08/02/16 evening patient had been eating additional snacks brought in by family which were not being covered by ordered CHO ratio. Additionally, pt decompensated and pt transferred to ICU. Steroids increased; changed from once daily prednisone to Q8hrs Solu-Medrol. All of these factors lead to severe hyperglycemia and subsequently was started on IV insulin infusion in the ICU. * Pt has been maintained on IV insulin infusion for ~ 18hrs --> hyperglycemia resolved. * Discussed transitioning to SQ basal bolus with nursing and pipe coverer and insulator. All in agreement. * Pt uses Lantus 24units SQ HS as an outpatient. Will likely require more insulin with increased stressors of illness, steroids, PO intake, etc. Will start outpatient Lantus dosing but order aggressive NovoLog coverage RTC for steroid induced hyperglycemia. * Steroids have their most profound effect on post-prandial hyperglycemia --> aggressive CF/CR warranted * Do not necessarily want to cover steroid induced hyperglycemia with long acting insulin (Lantus) as this may lead to hypoglycemia when steroid dose is tapered. Rapid acting insulin is more easily titratable. * ADA & AACE recommend a goal blood sugar range 140-180 mg/dl for the majority of critically ill & non-critically ill patients. However, more stringent targets may be selected in individual cases. Will utilize more stringent goal range of 120-160mg/dl for a well controlled diabetic at baseline. PLAN FOR INPATIENT GLYCEMIC CONTROL: * Maintain IV insulin infusion per protocol for a few more hours - OK to transition with dinner per pipe coverer and insulator. * Will overlap the IV insulin infusion and SQ insulin dosing per protocol. Recommended a minimum overlap of ~ 2hrs. Per protocol, will d/c the insulin infusion when held per calculator or 6 hrs after first Lantus dose given, whichever happens sooner. * Basal insulin with LANTUS 25 units SQ daily with dinner. * Administer 1/2 dose if BSG < 120mg/dl * Correctional Insulin with NOVOLOG per scale ACHS or Q6hrs while NPO. Additional checks + coverage at 0000 & 0400 for RTC coverage of steroid induced hyperglycemia. * Goal Range: Low 120 mg/dL - High 160 mg/dL * Correction Factor: 20 mg/dL/unit * Nutritional / Prandial insulin per carb ratio of 1 unit per 7 grams CHO consumed * Please note that the plan above was derived based on current level of insulin resistance and hospital stress. These recommendations are appropriate for inpatient admission only. Plan of care upon discharge will need to be reassessed to avoid potential outpatient hypo/hyperglycemia. Thank you.
[2016-08-03] MEDS ORDERED: INSULIN GLARGINE SOLOSTAR 100 UNITS/ML 3 ML PEN SC SCH ×2 (16:00→21:00)
--- NOTE | 2016-08-03 16:57 | Procedure Note ---
Procedure Note Procedure Date Aug 03, 2016. Procedure Description Procedure Name: Left pleural drainage by a tube thoracostomy Procedure time out: side/site verified, patient ID confirmed, correct procedure Consent obtained: written Time of procedure: 13:30 Performed by: attending (I was physically present and assisted with the entire procedure), resident Indications: diagnostic, therapeutic Contraindications: none Description: Ultrasound guidance was employed to verify pleural fluid and estimate safest approach. Patient was sitting at the bedside, was prepped with chlorhexidine along the posterior mid scapular line with ChloraPrep and sterilely draped. Approximately 4 mL's 1% lidocaine was used to anesthetize the area. Care was taken to introduced the needle over the superior portion of the rib avoiding any neurovascular bundles. After return of light yellow pleural fluid and guidewire was advanced into the pleural space. Needle was removed skin neck was made and a 8.5 Danish pigtail pleural catheter was inserted via modified Seldinger technique. Complications: none Patient tolerated procedure: well Post-procedure vital signs: reviewed and stable Comments: Approximately 100 mL of light yellow pleural fluid was sent to the lab for further analysis, chemistries, cell count, cytology, pleural pH. Approximately 500 ML's of fluid was removed
--- NOTE | 2016-08-03 17:05 | Critical Care Progress Note ---
Critical Care Progress Note Date of Service Aug 03, 2016. ICU Day ICU Day Number: [address] Heredia Subjective Patient in pleasant spirits feels improved from yesterday. Improvement in his shortness of breath, denies chest Objective General Appearance: no apparent distress, uncomfortable Head: normocephalic, atraumatic Eyes: PERRLA, EOMI Neck: normal range of motion, no tenderness, trachea midline, no stridor Respiratory: rales, rhonchi slightly improved from yesterday Cardiovasular: irregular rate Abdomen: non tender, normal bowel sounds, no rebound, no masses Neuro: alert, oriented x 3 Assessment & Plan (1) Acute chronic obstructive pulmonary disease with respiratory failure (2) COPD exacerbation (3) Subtherapeutic international normalized ratio (INR) (4) Pleural effusion (5) Hypoxia (6) Diabetes (7) Neuropathy (8) Hyperglycemia (9) Chronic pain (10) Marijuana smoker, continuous (11) Smoker (12) Social alcohol use Neuro: - Chronic pain secondary to neuropathy - Continue current pain regimen Cardiovascular: - Atrial fibrillation with RVR - On Coumadin - Improved with increased Coreg - Evidence of volume overload -Significant diuresis overnight Pulmonary - Acute on chronic COPD exacerbation - Gold [facility] - Acute on chronic respiratory failure with hypoxia and hypercarbia - Active smoker , tobacco - Active smoker, marijuana - Continue aggressive pulmonary toilet - Advocated that patient where CPAP increased settings to 12/8, patient refuses to wear due to intolerance - Patient is able to wear high flow nasal cannula - Continue steroids - Possible hospital-acquired pneumonia - On azithromycin and Zosyn, will finish a seven-day course - Pleural effusions - Drained today, anticipate transudate effusion Abdomen - Possible silent aspiration - Barium swallow study pending - Patient has diet order, acknowledges aspiration risk Renal - Volume overload - Aggressive diuresis with electrolyte repletion Hematology -Supratherapeutic INR - Hold Coumadin as patient is on antibiotics Endocrine - Poorly controlled diabetes mellitus type 2 - Hyperglycemia improved, anticipate transition to Lantus - On steroids for COPD exacerbation Infectious disease - Possible pneumonia - Blood cultures pending, no growth to date - Continue Zosyn and azithromycin for 7 day course. Prophylaxis: Coumadin Lines: Peripheral IVs and left radial arterial line for frequent lab draws and blood gases CODE STATUS: Limited code, no CPR no intubation if not breathing and no pulse Stable for downgraded from IC status and to telemetry, I discussed the case with Dr. Patiño with the hospitalist service who will accept Data Medications: Current Inpatient Medications Medications (Trade) Dose Ordered Sig/Sujatha Route Start Time Stop Time Status Last Admin Dose Admin Acetaminophen (Tylenol Tab) 650 mg Q4H PRN PO 07/31/16 01:15 08/30/16 01:14 Al Hydrox/Mg Hydrox/Simethicone (Maalox Max Susp) 15 ml Q4H PRN PO 07/31/16 01:15 08/30/16 01:14 Ondansetron HCl (Zofran Inj) 4 mg Q6H PRN IV 07/31/16 01:15 08/30/16 01:14 Nitroglycerin (Nitrostat Tab) 0.4 mg UD PRN SL 07/31/16 01:15 08/30/16 01:14 Morphine Sulfate (MoRPHine SULFATE INJ) 2 mg Q30M PRN IV 07/31/16 01:15 08/14/16 01:14 Bisacodyl (Dulcolax Supp) 5 mg PRN PRN MN 07/31/16 01:30 08/30/16 01:29 07/31/16 20:24 5 MG Cyanocobalamin (Vitamin B-12 Tab) 500 mcg DAILY PO 07/31/16 09:00 08/30/16 08:59 08/03/16 08:17 500 MCG Levothyroxine Sodium (Synthroid Tab) 25 mcg DAILYBB PO 07/31/16 06:00 08/30/16 05:59 08/03/16 06:00 25 MCG Magnesium Hydroxide (Milk Of Magnesia Susp) 30 ml HS PRN PO 07/31/16 01:30 08/30/16 01:29 07/31/16 20:24 30 ML Paroxetine HCl (pAXil TAB) 20 mg HS PO 07/31/16 21:00 08/30/16 20:59 08/02/16 20:35 20 MG Sodium Biphosphate/ Sodium Phosphate (Fleet Enema) 1 ml DAILY PRN MN 07/31/16 01:30 08/30/16 01:29 Sucralfate (Carafate Susp) 1 gm ACHS PO 07/31/16 07:00 08/30/16 06:59 08/03/16 15:31 1 GM Tamsulosin HCl (Flomax Cap) 0.4 mg HS PO 07/31/16 21:00 08/30/16 20:59 08/02/16 20:35 0.4 MG Warfarin Sodium (Coumadin Tab) 3 mg DAILY@1600 PO 07/31/16 16:00 08/30/16 15:59 Future Hold 08/02/16 17:14 3 MG Albuterol/ Ipratropium (Duoneb) 3 ml Q6R INH 07/31/16 03:00 08/30/16 02:59 08/03/16 14:15 3 ML Miscellaneous Information (Consult Glycemic Management Pharmacy) 1 ea UD PRN N/A 07/31/16 02:39 08/30/16 02:38 Miconazole Nitrate (Desenex Powder) 1 appln PRN PRN EXT 07/31/16 11:45 08/30/16 11:44 07/31/16 22:00 1 APPLN Pantoprazole Sodium (Protonix Tab) 40 mg QAM PO 08/01/16 09:00 08/31/16 08:59 08/03/16 08:16 40 MG Gabapentin (Neurontin Cap) 300 mg BID PO 07/31/16 21:00 08/30/16 20:59 08/03/16 08:17 300 MG Zolpidem Tartrate (Ambien Tab) 5 mg HS PRN PO 08/01/16 00:00 08/31/16 00:00 08/02/16 23:47 5 MG Albuterol Sulfate (Ventolin 0.083% 2.5MG/3ML Neb) 2.5 mg Q4H PRN INH 08/01/16 13:30 08/31/16 13:29 Lorazepam (Ativan Tab) 0.5 mg Q6 PRN PO 08/01/16 12:15 08/31/16 12:14 08/03/16 10:36 0.5 MG Acetylcysteine (Mucomyst 20% Inh Soln) 3 ml BIDR INH 08/01/16 20:00 08/31/16 19:59 08/03/16 08:00 3 ML Azithromycin 250 mg 250 mg DAILY PO 08/02/16 09:00 08/07/16 08:59 08/03/16 08:16 250 MG Methylprednisolone Sodium Succinate/ Syringe (Solu-Medrol IV/ Syringe) 0.96 ml @ 1.5 mls/min Q8H IV 08/02/16 18:00 09/01/16 20:59 08/03/16 10:01 1.5 MLS/MIN Piperacillin Sod/ Tazobactam Sod 1 ea 1 ea UD PRN N/A 08/02/16 17:00 09/01/16 16:59 Piperacillin Sod/ Tazobactam Sod/ Dextrose (Zosyn Iv/D5 100ml) 115 ml @ 28.75 mls/ hr Q8H IV 08/02/16 23:00 08/09/16 22:59 08/03/16 15:29 28.75 MLS/HR Dornase Alan 2.5 ml 2.5 ml BIDR INH 08/02/16 20:00 09/01/16 19:59 08/03/16 08:00 2.5 ML Furosemide 20 mg/ Syringe 2 ml @ 4 mls/min BID17 IV 08/02/16 17:30 09/01/16 17:29 Future hold 08/02/16 18:03 4 MLS/MIN Insulin Human Regular/Sodium Chloride (novoLIN-R/Nss 250ml) 252.5 ml @ 0 mls/hr DAILY@1130 IV 08/02/16 22:15 08/03/16 20:45 08/02/16 22:25 2.3 MLS/HR Glucose (Glucose 40% Gel) UD PRN PO 08/02/16 22:15 09/01/16 22:14 Glucose (Glucose Chew Tab) 1 tabs UD PRN PO 08/02/16 22:15 09/01/16 22:14 Dextrose (Dextrose 50% 50ML Syringe) 50 ml UD PRN IV 08/02/16 22:15 09/01/16 22:14 Glucagon (Glucagon Inj) 1 mg UD PRN SQ 08/02/16 22:15 09/01/16 22:14 Carvedilol (Coreg Tab) 25 mg BID PO 08/03/16 09:00 09/02/16 08:59 08/03/16 08:17 25 MG Potassium Chloride 40 meq 40 meq BID PO 08/03/16 09:00 08/03/16 21:01 08/03/16 09:54 40 MEQ Acetazolamide Sodium/Syringe (Diamox IV Push/ Syringe) 5 ml @ 5 mls/min BID IV 08/03/16 09:00 08/03/16 21:00 08/03/16 08:58 5 MLS/MIN Spironolactone (Aldactone Tab) 25 mg QAM PO 08/03/16 09:00 09/02/16 08:59 08/03/16 08:43 25 MG Docusate Sodium (coLACE CAP) 100 mg BID PRN PO 08/03/16 08:30 09/02/16 08:29 Lorazepam (Ativan Tab) 1 mg BID PRN PO 08/03/16 08:30 09/02/16 08:29 Insulin Aspart (novoLOG ASPART) SLIDING SCALE G... ACHS SC 08/03/16 16:00 09/02/16 15:59 Insulin Glargine (Lantus Solostar Pen) 25 unit HS SC 08/03/16 16:00 09/02/16 15:59 08/03/16 15:30 25 UNIT Insulin Aspart (novoLOG ASPART) SLIDING SCALE G... TODAY@0000,0400 ME 08/04/16 00:00 08/04/16 04:01 I & O: 24-Hour Column 08/03/16 08:00 Intake Total 1063 ml Output Total 4900 ml Balance -3837 ml Vital Signs: Date Time Temp Pulse Resp B/P Pulse Ox O2 Delivery O2 Flow Rate FiO2 08/03/16 14:15 109 24 100 Nasal Cannula 30.0 08/03/16 12:58 102 27 107/74 93 08/03/16 12:00 94 15 93 08/03/16 12:00 93 High Flow Oxygen 08/03/16 11:58 97 16 106/66 95 08/03/16 11:00 92 16 93 08/03/16 10:58 86 17 112/75 95 08/03/16 10:00 108 23 123/65 76 08/03/16 09:00 105 17 91 08/03/16 08:58 36.4 116 19 120/71 93 High Flow Oxygen 30 08/03/16 08:01 102 18 95 Nasal Cannula 30.0 08/03/16 08:00 95 High Flow Oxygen 08/03/16 08:00 86 25 93 08/03/16 07:00 117 19 08/03/16 06:06 102 16 111/63 96 High Flow Oxygen 08/03/16 04:58 103 17 114/61 95 08/03/16 04:00 94 High Flow Oxygen BiPAP 08/03/16 03:58 36.6 102 16 89/59 93 High Flow Oxygen 08/03/16 02:58 91 18 102/65 96 08/03/16 01:58 111 23 111/74 92 High Flow Oxygen 08/03/16 00:00 36.6 114 20 137/59 96 High Flow Oxygen BiPAP 08/03/16 00:00 92 High Flow Oxygen BiPAP 08/02/16 23:58 103 23 121/62 95 08/02/16 23:05 135 95 3.0 08/02/16 22:58 121 21 130/79 96 High Flow Oxygen 30 08/02/16 22:00 36.4 107 21 152/57 98 Nasal Cannula 4.0 08/02/16 21:58 95 19 154/56 86 08/02/16 21:45 103 20 87 08/02/16 21:33 120 21 110/96 08/02/16 20:19 36.7 116 20 122/73 96 BiPAP 3.0 08/02/16 20:09 116 94 3.0 08/02/16 20:00 93 BiPAP 3.0 08/02/16 19:33 84 20 98 Nasal Cannula 3.0 Laboratory Results: Last 24 Hours Test 08/02/16 20:24 08/02/16 20:25 08/02/16 21:57 08/02/16 22:39 Bedside Glucose 388 mg/dl 407 mg/dl 401 mg/dl Blood Gas Sample Site Art Line Bedside Blood Gas pH (LAB) 7.42 Bedside Blood Gas pCO2 (LAB) 48 mmHg Bedside Blood Gas pO2 (LAB) 80 mmHg Bedside Blood Gas HCO3 (LAB) 31 meq/L Bedside Blood Gas Total CO2 33 mEq/l Bedside Blood Gas Base Excess (LAB) 7.0 meq/L Bedside Blood Gas O2 Saturation 96.0 % Kranthi Test NA Oxygen Delivery Device Hi Ritesh Can Bedside FiO2 30 % Test 08/02/16 23:35 08/03/16 00:00 08/03/16 00:44 08/03/16 02:07 Bedside Glucose 294 mg/dl 241 mg/dl 210 mg/dl Pleural Fluid pH 7.41 Test 08/03/16 03:04 08/03/16 04:04 08/03/16 04:50 08/03/16 04:51 Bedside Glucose 192 mg/dl 190 mg/dl 187 mg/dl White Blood Count 7.12 K/uL Red Blood Count 3.09 M/uL Hemoglobin 8.5 g/dL Hematocrit 26.6 % Mean Corpuscular Volume 86.1 fL Mean Corpuscular Hemoglobin 27.5 pg Mean Corpuscular Hemoglobin Concent 32.0 g/dl RDW Standard Deviation 49.1 fL RDW Coefficient of Variation 15.6 % Platelet Count 186 K/uL Mean Platelet Volume 9.5 fL Nucleated RBC Absolute Count (auto) 0.04 K/uL Nucleated Red Blood Cells % 0.5 % Prothrombin Time 44.5 SECONDS Prothromb Time International Ratio 3.9 Sodium Level 143 mmol/L Potassium Level 3.5 mmol/L Chloride Level 102 mmol/L Carbon Dioxide Level 34 mmol/L Anion Gap 7.0 mmol/L Blood Urea Nitrogen 25 mg/dl Creatinine 0.72 mg/dl Est Creatinine Clear Calc Drug Dose 101.8 ml/min Estimated GFR () 108.0 Estimated GFR (Non- 93.2 BUN/Creatinine Ratio 34.8 Random Glucose 182 mg/dl Calcium Level 7.5 mg/dl Phosphorus Level 3.4 mg/dl Magnesium Level 2.0 mg/dl Total Bilirubin 0.2 mg/dl Direct Bilirubin < 0.1 mg/dl Aspartate Amino Transf (AST/SGOT) 5 U/L Alanine Aminotransferase (ALT/SGPT) 24 U/L Alkaline Phosphatase 115 U/L Total Protein 4.8 gm/dl Albumin 2.0 gm/dl Test 08/03/16 05:10 08/03/16 06:01 08/03/16 07:05 08/03/16 08:22 Blood Gas Sample Site Art Line Bedside Blood Gas pH (LAB) 7.39 Bedside Blood Gas pCO2 (LAB) 55 mmHg Bedside Blood Gas pO2 (LAB) 76 mmHg Bedside Blood Gas HCO3 (LAB) 33 meq/L Bedside Blood Gas Total CO2 35 mEq/l Bedside Blood Gas Base Excess (LAB) 8.0 meq/L Bedside Blood Gas O2 Saturation 95.0 % Kranthi Test NA Oxygen Delivery Device Hi Ritesh Can Bedside FiO2 30 % Bedside Glucose 182 mg/dl 200 mg/dl 216 mg/dl Test 08/03/16 09:28 08/03/16 11:09 08/03/16 11:51 08/03/16 12:11 Bedside Glucose 230 mg/dl 142 mg/dl 97 mg/dl Total Bilirubin 0.2 mg/dl Lactate Dehydrogenase 211 U/L Total Protein 5.5 gm/dl Albumin 2.4 gm/dl Test 08/03/16 12:33 08/03/16 12:52 08/03/16 14:00 08/03/16 14:25 Bedside Glucose 108 mg/dl 127 mg/dl 148 mg/dl Test 08/03/16 15:42 Bedside Glucose 191 mg/dl
[2016-08-03] MEDS: INSULIN ASPART 100 UNITS/ML 3 ML PEN SC SCH ×3 (17:09→23:11)
--- NOTE | 2016-08-03 18:02 | DIAGNOSTIC IMAGING REPORT ---
CHEST ONE VIEW PORTABLE CLINICAL HISTORY: pleural drain dyspnea COMPARISON STUDY: 08/03/2016 6:34 AM FINDINGS: Interval placement of a pleural drainage catheter left midlung medially. Pigtail component of the catheter is at the left lung base. There is no evidence for pneumothorax. There may been a slight interval decrease in volume of left effusion. IMPRESSION: Placement of a left-sided drainage catheter with a slight decrease in volume of a left neural effusion. No evidence pneumothorax. Electronically signed by: Kaleb Saldaña M.D. 08/03/2016 6:01 PM Dictated Date/Time: 08/03/2016 6:00 PM
--- NOTE | 2016-08-03 18:15 | Family Medicine Progress Note ---
Progress Note Date of Service Aug 03, 2016. Subjective Pt evaluation today including: conversation w/ patient, physical exam, chart review, lab review Patient seems to be feeling better today, he denies significant discomfort. Dyspnea persists. Over night he was transferred to ICU for more acute observation. Constitutional: No chills, No fever Respiratory: + cough, + shortness of breath, + sputum Cardiovascular: No chest pain Abdomen: No nausea, No pain, No vomiting Male : No hematuria Heme: No abnormal bleeding/bruising Objective Vital Signs Date Time Temp Pulse Resp B/P Pulse Ox O2 Delivery O2 Flow Rate FiO2 08/03/16 22:00 112 17 112/83 100 Nasal Cannula 3.0 08/03/16 20:02 105 22 100 Nasal Cannula 3.0 08/03/16 20:00 36.9 111 16 106/66 100 Nasal Cannula 4.0 08/03/16 20:00 98 Nasal Cannula 4.0 08/03/16 17:00 117 18 94 08/03/16 16:59 112 17 156/58 96 High Flow Oxygen 30 08/03/16 16:00 93 High Flow Oxygen 08/03/16 16:00 118 18 94 08/03/16 15:59 93 16 139/74 96 08/03/16 15:00 99 25 93 08/03/16 14:58 104 18 118/71 92 08/03/16 14:15 109 24 100 Nasal Cannula 30.0 08/03/16 14:00 81 14 92 08/03/16 12:58 102 27 107/74 93 08/03/16 12:00 94 15 93 08/03/16 12:00 93 High Flow Oxygen 08/03/16 11:58 97 16 106/66 95 08/03/16 11:00 92 16 93 08/03/16 10:58 86 17 112/75 95 08/03/16 10:00 108 23 123/65 76 08/03/16 09:00 105 17 91 08/03/16 08:58 36.4 116 19 120/71 93 High Flow Oxygen 30 08/03/16 08:01 102 18 95 Nasal Cannula 30.0 08/03/16 08:00 95 High Flow Oxygen 08/03/16 08:00 86 25 93 08/03/16 07:00 117 19 08/03/16 06:06 102 16 111/63 96 High Flow Oxygen 08/03/16 04:58 103 17 114/61 95 08/03/16 04:00 94 High Flow Oxygen BiPAP 08/03/16 03:58 36.6 102 16 89/59 93 High Flow Oxygen 08/03/16 02:58 91 18 102/65 96 08/03/16 01:58 111 23 111/74 92 High Flow Oxygen 08/03/16 00:00 36.6 114 20 137/59 96 High Flow Oxygen BiPAP 08/03/16 00:00 92 High Flow Oxygen BiPAP 08/02/16 23:58 103 23 121/62 95 Physical Exam General Appearance: WD/WN, no apparent distress Neck: supple Respiratory/Chest: chest non-tender, no accessory muscle use, + decreased breath sounds, + rales Cardiovascular: no edema, + tachycardia Abdomen: normal bowel sounds, non tender, soft Extremities: no calf tenderness Neurologic/Psychiatric: alert, normal mood/affect, oriented x 3 Skin: normal color, warm/dry, no rash Laboratory Results Results Past 24 Hours Test 08/03/16 00:00 08/03/16 00:44 08/03/16 02:07 08/03/16 03:04 Range/Units Pleural Fluid Source LEFT LUNG Pleural Fluid Color STRAW Pleural Fluid Appearance CLEAR Pleural Fluid WBC 98 /uL Pleural Fluid RBC < 3000 /uL Pleural Fluid pH 7.41 7.3-7.4 Pleural Fluid Polynuclear WBCs % 62.5 % Pleural Fluid Mononuclear WBCs % 37.5 % Pleural Fluid Total Protein 1.0 g/dl Pleural Fluid LDH 52 IU Pleural Fluid Glucose 160 mg/dl Pleural Fluid Amylase 15 U/L Bedside Glucose 241 210 192 70-99 mg/dl Test 08/03/16 04:04 08/03/16 04:50 08/03/16 04:51 08/03/16 05:10 Range/Units Bedside Glucose 190 187 70-99 mg/dl White Blood Count 7.12 4.8-10.8 K/uL Red Blood Count 3.09 4.7-6.1 M/uL Hemoglobin 8.5 14.0-18.0 g/dL Hematocrit 26.6 42-52 % Mean Corpuscular Volume 86.1 80-100 fL Mean Corpuscular Hemoglobin 27.5 25-34 pg Mean Corpuscular Hemoglobin Concent 32.0 32-36 g/dl RDW Standard Deviation 49.1 36.4-46.3 fL RDW Coefficient of Variation 15.6 11.5-14.5 % Platelet Count 186 130-400 K/uL Mean Platelet Volume 9.5 7.4-10.4 fL Nucleated RBC Absolute Count (auto) 0.04 0-0 K/uL Nucleated Red Blood Cells % 0.5 % Prothrombin Time 44.5 9.0-12.0 SECONDS Prothromb Time International Ratio 3.9 0.9-1.1 Sodium Level 143 136-145 mmol/L Potassium Level 3.5 3.5-5.1 mmol/L Chloride Level 102 98-107 mmol/L Carbon Dioxide Level 34 21-32 mmol/L Anion Gap 7.0 3-11 mmol/L Blood Urea Nitrogen 25 7-18 mg/dl Creatinine 0.72 0.60-1.40 mg/dl Est Creatinine Clear Calc Drug Dose 101.8 ml/min Estimated GFR () 108.0 Estimated GFR (Non- 93.2 BUN/Creatinine Ratio 34.8 10-20 Random Glucose 182 70-99 mg/dl Calcium Level 7.5 8.5-10.1 mg/dl Phosphorus Level 3.4 2.5-4.9 mg/dl Magnesium Level 2.0 1.8-2.4 mg/dl Total Bilirubin 0.2 0.2-1 mg/dl Direct Bilirubin < 0.1 0-0.2 mg/dl Aspartate Amino Transf (AST/SGOT) 5 15-37 U/L Alanine Aminotransferase (ALT/SGPT) 24 12-78 U/L Alkaline Phosphatase 115 45-117 U/L Total Protein 4.8 6.4-8.2 gm/dl Albumin 2.0 3.4-5.0 gm/dl Blood Gas Sample Site Art Line Bedside Blood Gas pH (LAB) 7.39 7.35-7.45 Bedside Blood Gas pCO2 (LAB) 55 35-46 mmHg Bedside Blood Gas pO2 (LAB) 76 80-95 mmHg Bedside Blood Gas HCO3 (LAB) 33 19-24 meq/L Bedside Blood Gas Total CO2 35 24-31 mEq/l Bedside Blood Gas Base Excess (LAB) 8.0 -9-1.8 meq/L Bedside Blood Gas O2 Saturation 95.0 90-95 % Kranthi Test NA Oxygen Delivery Device Hi Ritesh Can Bedside FiO2 30 % Test 08/03/16 06:01 2/4/17 07:05 08/03/16 08:22 08/03/16 09:28 Range/Units Bedside Glucose 182 200 216 230 70-99 mg/dl Test 08/03/16 11:09 08/03/16 11:51 08/03/16 12:11 08/03/16 12:33 Range/Units Bedside Glucose 142 97 108 70-99 mg/dl Total Bilirubin 0.2 0.2-1 mg/dl Lactate Dehydrogenase 211 87-241 U/L Total Protein 5.5 6.4-8.2 gm/dl Albumin 2.4 3.4-5.0 gm/dl Test 08/03/16 12:52 08/03/16 14:25 08/03/16 15:42 08/03/16 17:03 Range/Units Bedside Glucose 127 148 191 244 70-99 mg/dl Test 08/03/16 19:20 08/03/16 20:22 08/03/16 23:09 Range/Units Sodium Level 141 136-145 mmol/L Potassium Level 3.7 3.5-5.1 mmol/L Chloride Level 102 98-107 mmol/L Carbon Dioxide Level 32 21-32 mmol/L Anion Gap 7.0 3-11 mmol/L Blood Urea Nitrogen 28 7-18 mg/dl Creatinine 0.75 0.60-1.40 mg/dl Est Creatinine Clear Calc Drug Dose 106.6 ml/min Estimated GFR () 106.2 Estimated GFR (Non- 91.6 BUN/Creatinine Ratio 37.9 10-20 Random Glucose 181 70-99 mg/dl Calcium Level 7.3 8.5-10.1 mg/dl Bedside Glucose 195 164 70-99 mg/dl Microbiology Results 08/03/16 Acid Fast Stain, Received Pending 08/03/16 Mycobacterial Culture, Received Pending 08/03/16 Gram Stain - Preliminary, Resulted 08/03/16 Bacterial Culture, Resulted Pending Assessment and Plan 70 year old male presents with acute hypoxic respiratory failure secondary to recurrent bilateral pleural effusions, on background of COPD with 2L O2 at home , poorly controlled T2DM, diastolic CHF, and hypothyroidism. Acute on chronic hypoxic respiratory failure with hypoxia and hypercapnia - Likely secondary exacerbation of his COPD and/or pneumonia - Consulted Pulmonary and continue to appreciate their recommendation - Aggressive treatment with oxygen supplement via high flow nasal cannula + intermittent vibration therapy + Duoneb INH q6h and Albuterol q4h prn + methylprednisone - D/c Pulmicort INH since no active benefit this time and Mucomyst INH given it might exacerbate mucous secretion, per Pulmonary - Started Dornase INH BID - Left radial arterial line inserted on 08/03/15 for frequent lab draws and blood gases - Pigtail catheter inserted into posterior left chest cavity on 08/03/15 to drain pleural effusion -- 500cc of serous fluid removed upon insertion. Capping drainage to 1000cc daily. - Lung fluid sent for lab and micro analysis COPD exacerbation - Patient remains active smoker of tobacco and marijuana - Received 125mg of Solumedrol in ED - Change Prednisone 50mg PO to IV - Continue Duoneb INH q6h with Albuterol q4h prn, discontinue Pulmicort INH BID - Currently requiring oxygen supplement, patient refusing CPAP due to intolerance - Pulmonary recommended to continue with the above medication, add Spiriva and possible Roflumilast prior to d/c but not this time given his state, obtain previous PFT. Hospital acquired pneumonia - CXR (07/30): Cardiomegaly with evidence of congestive failure. Perihilar airspace opacities are identified and likely represent interstitial edema.There are small pleural effusions and bibasilar consolidation. This likely represents atelectasis. Cortical clinically for evidence of superimposed pneumonia. - CXR (07/31): Mild stable cardiomegaly. Subtle increase in density of the hemithoracic and perihilar regions bilaterally. Early developing pulmonary edema is considered. Trace pleural fluid left base. - Blood cultures pending. - Video swallow study to rule out aspiration. Results pending. - Changed Augmentin to boarder spectrum IV Zosyn given no improvement in patient and continue azithromycin 250mg to cover atypical organisms to complete 7 day course Diastolic CHF - Recurrent pleural effusion probably secondary to CHF given it's transudate - Continue management of CHF with fluid restriction limit to 1.5L - Aggressive diuresis with IV Lasix, with electrolyte repletion as needed - Continue I/O and weight Afib with RVR - Rate control Improved with increased Coreg from 12.5mg BID to 25mg BID - On warfarin with supratherapeutic INR of 3.9 on 08/03/16, likely secondary to concurrent antibiotic usage - Hold warfarin today for target INR 2.5-3.5 Neuropathic pain secondary to poorly controlled DM - Start Gabapentin 300mg BID - He has previously been on significantly higher doses previously, will titrate up as necessary Chronic Right heel ulceration - Probably secondary to neuropathy - Wound care consulted and will continue to follow Poorly controlled DM type 2 - Possibly further exacerbated by steroid use for COPD exacerbation - On Lantus 25unit HS + Aspart sliding scale - AC/HS BSG Recent H/O severe GI bleed requiring blood transfusion - Continue Carafate 1g and Protonix 20mg daily Depression - Continue Paroxetine 20mg BPH - Continue tamsulosin 0.4mg DVT Prophylaxis - Warfarin Code status - Limited code, no CPR no intubation if not breathing and no pulse Continued [facility] stay due to: abnormal vital signs, multiple IV medications needed Resident Involvement: Resident Care Provided Care Provided: Adult [facility] Medicine History Resident Physician Supervision Note: I was present with Dr. Naylor during the history and exam. I discussed the case with the resident and agree with the findings and plan as documented in the note. Any exceptions or clarifications are listed here. Pt seen and examined at bedside. Overnight, persistent respiratory decompensation resulted in transfer to ICU for increased O2 demand and monitoring. While there, he received a left sided pigtail catheter which he reports improved his shortness of breath considerably. Reports no fever, ROJAS, lightheadedness, palpitations, sensory changes, nausea. General Appearance: mild distress, obese Respiratory: decreased breath sounds (improved at left base following tap), rales, rhonchi, wheezing Cardiovascular: normal peripheral pulses, no murmur, tachycardia, irregularly irregular Gastrointestinal: normal bowel sounds, non tender, soft, no organomegaly Assessment/Plan 69 y/o male h/o b/l pleural effusions, COPD, DMII, CHF p/w AHRF A on CHRF - pulmonology aware and input appreciated - pulmozyme, zosyn, intermittent vibration therapy, encourage BiPAP w/ SOB - s/p pigtail cath in LLL w/ ~600cc drained COPD exacerbation - continue duonebs, solu-medrol, pulmozyme, mucomyst HCAP - trend CBC, azithromycin/zosyn, barium swallow pending for further eval of esophageal motility DMII - poorly controlled at present - lantus and ISS, will up adjust and follow PAF - warfarin, trend coags. Increased coreg for rate control w/ improvement Acute on chronic dCHF w/ Effusion - will monitor closely - IV lasix, I/O, daily wts, fluid restrict to 1.5L - echo completed Neuropathy - gabapentin 300mg TID, h/o considerable medication use to curb pain and mood LE wound - wound care aware Depression - continue paroxetine BPH - tamsulosin
[2016-08-03] MEDS: MAGNESIUM HYDROXIDE SUSP 30 ML UDC PO PRN (18:47)
[2016-08-03] MEDS: DOCUSATE SODIUM 100 MG CAP PO PRN (18:47)
[2016-08-03] MEDS: PAROXETINE 20 MG TAB PO SCH (20:13)
[2016-08-03] MEDS: TAMSULOSIN HCL 0.4 MG CAP PO SCH (20:14)
[2016-08-03 20:50] LABS: BUN/CREATININE RATIO 37.9 (10-20); CALCIUM 7.3 mg/dl (8.5-10.1); CREATININE 0.75 mg/dl (0.60-1.40); POTASSIUM 3.7 mmol/L (3.5-5.1)
[2016-08-03 21:17] LABS: PLEURAL FLUID APPEARANCE CLEAR; PLEURAL FLUID COLOR STRAW; PLEURAL FLUID MONONUC RELAT 37.5 %; PLEURAL FLUID POLYNUC 62.5 %; PLEURAL FLUID SOURCE LEFT LUNG; PLEURAL FLUID WBC (A) 98 /uL
[2016-08-03] MEDS: LORAZEPAM 1 MG TAB PO PRN (21:36)
[2016-08-04] VITALS (23 sets, daily range): BP systolic 98–121; BP diastolic 62–83; PULSE 87–126; TEMP 36.3–36.5; O2SAT 91–99
[2016-08-04] MEDS: METHYLPREDNISOLONE IV 60 MG in SYRINGE 0 ML IV SCH ×2 (02:00→11:23)
[2016-08-04] MEDS: ALBUT/IPRATROP 3MG/0.5MG NEB 3 ML VIAL INH SCH ×4 (02:20→19:00)
[2016-08-04] MEDS: INSULIN ASPART 100 UNITS/ML 3 ML PEN SC SCH ×5 (04:27→21:00)
[2016-08-04 05:37] LABS: HEMATOCRIT 28.7 % (42-52); IG% 0.3 %; LYMPH % 2.1 %; LYMPH ABS # 0.22 K/uL (1.2-3.4); MEAN CELL VOLUME 88.9 fL (80-100); MEAN CORPUSCULAR HEMOGLOBIN 27.6 pg (25-34); MEAN PLATELET VOLUME 9.7 fL (7.4-10.4); MONO % 4.9 %; NEUT % 92.7 %; PLATELET COUNT 188 K/uL (130-400); RED BLOOD COUNT 3.23 M/uL (4.7-6.1); WHITE BLOOD COUNT 10.37 K/uL (4.8-10.8)
[2016-08-04] MEDS: LEVOTHYROXINE 25 MCG TAB PO SCH (06:00)
[2016-08-04 06:01] LABS: ANISOCYTOSIS PRESENT; COMPLETE YES; POLYCHROMASIA 1+
[2016-08-04 06:04] LABS: BUN/CREATININE RATIO 43.4 (10-20); CALCIUM 7.7 mg/dl (8.5-10.1); CREATININE 0.69 mg/dl (0.60-1.40); POTASSIUM 3.5 mmol/L (3.5-5.1)
[2016-08-04] MEDS: SUCRALFATE 1 GM/10 ML UDC PO SCH ×4 (06:31→21:29)
[2016-08-04] MEDS: DORNASE ALFA (2500U) 2.5MG/2.5ML INH SCH ×2 (07:18→19:11)
[2016-08-04] MEDS: ACETYLCYSTEINE 20% INHAL SOLN ***DISPENSED BY RESP. INH SCH ×2 (07:18→18:59)
[2016-08-04 07:34] LABS: PROTHROMBIN TIME (PATIENT) 48.1 SECONDS (9.0-12.0)
[2016-08-04 07:37] LABS: INR 4.2 (0.9-1.1)
[2016-08-04] MEDS: GABAPENTIN 300 MG CAP PO SCH ×2 (07:48→21:28)
[2016-08-04] MEDS: CARVEDILOL 25 MG TAB PO SCH ×2 (07:48→21:28)
[2016-08-04] MEDS: AZITHROMYCIN 250 MG TAB PO SCH (07:48)
[2016-08-04] MEDS: CYANOCOBALAMIN 500 MCG TAB (VIT B-12) PO SCH (07:48)
[2016-08-04] MEDS: PANTOprazole SOD 40 MG TAB PO SCH (07:49)
[2016-08-04] MEDS: SPIRONOLACTONE 25 MG TAB PO SCH (07:49)
[2016-08-04] MEDS: PIPERACILL/TAZOBAC IV 3.375 GM in DEXTROSE 5% 100ML IV SCH ×3 (07:51→23:10)
[2016-08-04] MEDS: FUROSEMIDE INJ 20 MG in SYRINGE 0 ML IV SCH ×2 (07:51→17:29)
[2016-08-04] MEDS ORDERED: INSULIN GLARGINE SOLOSTAR 100 UNITS/ML 3 ML PEN SC SCH ×3 (08:30→21:00)
--- NOTE | 2016-08-04 12:23 | Pharmacy Progress Note ---
Glycemic Control: Progress Nt Date of Service Aug 04, 2016. Scope Glycemic Pharmacist consulted for glycemic control and to write orders per [facility] inpatient glycemic control protocol. Objective Accuchecks BSG (last 24hrs): Test 08/03/16 12:33 08/03/16 12:52 08/03/16 14:25 08/03/16 15:42 Bedside Glucose 108 mg/dl (70-99) 127 mg/dl (70-99) 148 mg/dl (70-99) 191 mg/dl (70-99) Test 08/03/16 17:03 08/03/16 19:20 08/03/16 20:22 08/03/16 23:09 Bedside Glucose 244 mg/dl (70-99) 195 mg/dl (70-99) 164 mg/dl (70-99) Random Glucose 181 mg/dl (70-99) Test 08/04/16 04:21 08/04/16 05:13 08/04/16 11:32 Bedside Glucose 238 mg/dl (70-99) 359 mg/dl (70-99) Random Glucose 225 mg/dl (70-99) Laboratory Data (last 24hrs) Test 08/03/16 19:20 08/04/16 05:13 Anion Gap 7.0 mmol/L 6.0 mmol/L BUN/Creatinine Ratio 37.9 43.4 Blood Urea Nitrogen 28 mg/dl 30 mg/dl Creatinine 0.75 mg/dl 0.69 mg/dl Potassium Level 3.7 mmol/L 3.5 mmol/L Sodium Level 141 mmol/L 141 mmol/L White Blood Count 10.37 K/uL Red Blood Count 3.23 M/uL Hemoglobin 8.9 g/dL Hematocrit 28.7 % Mean Corpuscular Volume 88.9 fL Mean Corpuscular Hemoglobin 27.6 pg Mean Corpuscular Hemoglobin Concent 31.0 g/dl Platelet Count 188 K/uL Mean Platelet Volume 9.7 fL Neutrophils (%) (Auto) 92.7 % Lymphocytes (%) (Auto) 2.1 % Monocytes (%) (Auto) 4.9 % Eosinophils (%) (Auto) 0.0 % Basophils (%) (Auto) 0.0 % Neutrophils # (Auto) 9.61 K/uL Lymphocytes # (Auto) 0.22 K/uL Monocytes # (Auto) 0.51 K/uL Eosinophils # (Auto) 0.00 K/uL Basophils # (Auto) 0.00 K/uL HbA1c: Test 07/30/16 22:04 Hemoglobin A1c 7.6 % (4.5-5.6) H Recent Pertinent Medications Outpatient Anti-diabetic Regimen: * Lantus 24 units SQ HS * Novolin R per scale ACHS The patient is currently receiving: * Basal insulin: Lantus 25 units every 24hrs given in the evening * Correctional Insulin: Novolog Correction per scale ACHS Goal Range: Low 120 mg/dL - High 160 mg/dL Correction Factor: 20 mg/dL/unit * Prandial insulin: Per carb ratio of 1 unit per 7 grams CHO consumed Risk Factors for Insulin Resistance: * Steroids * Infection * Diet Assessment & Plan ASSESSMENT: * Pt with significant steroid induced hyperglycemia - receiving SoluMedrol 60mg IV Q8hrs. * Was on IV insulin infusion x ~ 18hrs from 08/02-08/03. Transitioned to SQ basal bolus insulin regimen based on high stress on 08/03 PM * After transitioning to SQ BSGs were as follows: 195, 164, 238, 225, up to 359 prior to lunch today. * Patient has the tendency to snack between meals and CHO not covered w/ insulin d/t nursing not always aware that patient is eating. Pt extremely non- compliant with inpatient diet leading to severe hyperglycemia. * AM fasting BSG was 225mg/dl this morning --> Gave additional 15 units of Lantus x 1 and tightened bolus insulin parameters * Will need to treat severe hyperglycemia prior to lunch * Steroids just tapered; changed from RTC SoluMedrol to once daily prednisone 40mg starting tomorrow. Should see an improvement with this step down in steroid dosing. * Steroids have their most profound effect on post-prandial hyperglycemia --> aggressive CF/CR warranted * Do not necessarily want to cover steroid induced hyperglycemia with long acting insulin (Lantus) as this may lead to hypoglycemia when steroid dose is tapered. Rapid acting insulin is more easily titratable. Only gave one time additional dose this morning. * ADA & AACE recommend a goal blood sugar range 140-180 mg/dl for the majority of critically ill & non-critically ill patients. However, more stringent targets may be selected in individual cases. Will utilize more stringent goal range of 120-140mg/dl for a well controlled diabetic at baseline. Pt to transfer out of ICU today - may use tighter/lower goal range for non-critically ill patients. PLAN FOR INPATIENT GLYCEMIC CONTROL: * Basal insulin with LANTUS 25 units SQ daily with dinner. * Administer 1/2 dose if BSG < 120mg/dl * Gave additional one time dose of Lantus 15 units SQ x 1 this morning for sustained hyperglycemia secondary to RTC Solumedrol. * Correctional Insulin with NOVOLOG per scale ACHS or Q6hrs while NPO. Additional checks + coverage at 0000 & 0400 for RTC coverage of steroid induced hyperglycemia. * Goal Range: Low 120 mg/dL - High 140 mg/dL * Correction Factor: 15 mg/dL/unit * Nutritional / Prandial insulin per carb ratio of 1 unit per 6 grams CHO consumed * Please note that the plan above was derived based on current level of insulin resistance and hospital stress. These recommendations are appropriate for inpatient admission only. Plan of care upon discharge will need to be reassessed to avoid potential outpatient hypo/hyperglycemia. Thank you.
[2016-08-04] MEDS ORDERED: FUROSEMIDE 40 MG/4 ML VIAL IV STA (12:43)
--- NOTE | 2016-08-04 12:47 | Critical Care Progress Note ---
Critical Care Progress Note Date of Service Aug 04, 2016. ICU Day ICU Day Number: [address] Heredia Subjective Feels much improved over yesterday, decrease in shortness of breath Objective General Appearance: no apparent distress, uncomfortable Head: normocephalic, atraumatic Eyes: PERRLA, EOMI Neck: normal range of motion, no tenderness, trachea midline, no stridor Respiratory: rales, rhonchi slightly improved from yesterday Cardiovasular: irregular rate Chest: Pleural drain in left chest draining yellow fluid Abdomen: non tender, normal bowel sounds, no rebound, no masses Neuro: alert, oriented x 3 Assessment & Plan (1) Acute chronic obstructive pulmonary disease with respiratory failure (2) COPD exacerbation (3) Subtherapeutic international normalized ratio (INR) (4) Pleural effusion (5) Hypoxia (6) Diabetes (7) Neuropathy (8) Hyperglycemia (9) Chronic pain (10) Marijuana smoker, continuous (11) Smoker (12) Social alcohol use Neuro: - Chronic pain secondary to neuropathy - Continue current pain regimen Cardiovascular: - Atrial fibrillation with RVR - On Coumadin: Holding as supratherapeutic INR - Evidence of volume overload - Suspect we're approaching dry weight, patient at weight as first day of admission, BUN and creatinine ratio climbing, however still need significant diuresis continue to monitor creatinine function Pulmonary - Acute on chronic COPD exacerbation - Gold [facility] - Acute on chronic respiratory failure with hypoxia and hypercarbia - Active smoker , tobacco - Active smoker, marijuana - Continue aggressive pulmonary toilet - Advocated that patient where CPAP increased settings to 12/8, patient refuses to wear due to intolerance - Patient is able to wear high flow nasal cannula -Slowly wean steroids - Possible hospital-acquired pneumonia - On azithromycin and Zosyn, will finish a seven-day course - Pleural effusions - Continue to monitor drainage Abdomen - Possible silent aspiration - Barium swallow study pending - Patient has diet order, acknowledges aspiration risk Renal - Volume overload -Gentle diuresis with electrolyte replacement Hematology -Supratherapeutic INR - Hold Coumadin as patient is on antibiotics Endocrine - Poorly controlled diabetes mellitus type 2 - Hyperglycemia slightly worsened in transition to subcutaneous insulin - Patient not counting carbs, engaging in dietary indiscretion -Decreased steroids to 40 mg prednisone daily Infectious disease - Possible pneumonia - Blood cultures pending, no growth to date - Continue Zosyn and azithromycin for 7 day course. Prophylaxis: Coumadin Lines: Peripheral IVs and left radial arterial line for frequent lab draws and blood gases CODE STATUS: Limited code, no CPR no intubation if not breathing and no pulse Stable for downgraded from IC status and to telemetry, I discussed the case with Dr. Patiño with the hospitalist service who will accept Data Medications: Current Inpatient Medications Medications (Trade) Dose Ordered Sig/Sujatha Route Start Time Stop Time Status Last Admin Dose Admin Acetaminophen (Tylenol Tab) 650 mg Q4H PRN PO 07/31/16 01:15 08/30/16 01:14 Al Hydrox/Mg Hydrox/Simethicone (Maalox Max Susp) 15 ml Q4H PRN PO 07/31/16 01:15 08/30/16 01:14 Ondansetron HCl (Zofran Inj) 4 mg Q6H PRN IV 07/31/16 01:15 08/30/16 01:14 Nitroglycerin (Nitrostat Tab) 0.4 mg UD PRN SL 07/31/16 01:15 08/30/16 01:14 Morphine Sulfate (MoRPHine SULFATE INJ) 2 mg Q30M PRN IV 07/31/16 01:15 08/14/16 01:14 Bisacodyl (Dulcolax Supp) 5 mg PRN PRN OK 07/31/16 01:30 08/30/16 01:29 07/31/16 20:24 5 MG Cyanocobalamin (Vitamin B-12 Tab) 500 mcg DAILY PO 07/31/16 09:00 08/30/16 08:59 08/04/16 07:48 500 MCG Levothyroxine Sodium (Synthroid Tab) 25 mcg DAILYBB PO 07/31/16 06:00 08/30/16 05:59 08/04/16 06:00 25 MCG Magnesium Hydroxide (Milk Of Magnesia Susp) 30 ml HS PRN PO 07/31/16 01:30 08/30/16 01:29 08/03/16 18:47 30 ML Paroxetine HCl (pAXil TAB) 20 mg HS PO 07/31/16 21:00 08/30/16 20:59 08/03/16 20:13 20 MG Sodium Biphosphate/ Sodium Phosphate (Fleet Enema) 1 ml DAILY PRN OK 07/31/16 01:30 08/30/16 01:29 Sucralfate (Carafate Susp) 1 gm ACHS PO 07/31/16 07:00 08/30/16 06:59 08/04/16 11:23 1 GM Tamsulosin HCl (Flomax Cap) 0.4 mg HS PO 07/31/16 21:00 08/30/16 20:59 08/03/16 20:14 0.4 MG Warfarin Sodium (Coumadin Tab) 3 mg DAILY@1600 PO 07/31/16 16:00 08/30/16 15:59 Future Hold 08/02/16 17:14 3 MG Albuterol/ Ipratropium (Duoneb) 3 ml Q6R INH 07/31/16 03:00 08/30/16 02:59 08/04/16 07:18 3 ML Miscellaneous Information (Consult Glycemic Management Pharmacy) 1 ea UD PRN N/A 07/31/16 02:39 08/30/16 02:38 Miconazole Nitrate (Desenex Powder) 1 appln PRN PRN EXT 07/31/16 11:45 08/30/16 11:44 07/31/16 22:00 1 APPLN Pantoprazole Sodium (Protonix Tab) 40 mg QAM PO 08/01/16 09:00 08/31/16 08:59 08/04/16 07:49 40 MG Gabapentin (Neurontin Cap) 300 mg BID PO 07/31/16 21:00 08/30/16 20:59 08/04/16 07:48 300 MG Zolpidem Tartrate (Ambien Tab) 5 mg HS PRN PO 08/01/16 00:00 08/31/16 00:00 08/02/16 23:47 5 MG Albuterol Sulfate (Ventolin 0.083% 2.5MG/3ML Neb) 2.5 mg Q4H PRN INH 08/01/16 13:30 08/31/16 13:29 Lorazepam (Ativan Tab) 0.5 mg Q6 PRN PO 08/01/16 12:15 08/31/16 12:14 08/03/16 10:36 0.5 MG Acetylcysteine (Mucomyst 20% Inh Soln) 3 ml BIDR INH 08/01/16 20:00 08/31/16 19:59 08/04/16 07:18 3 ML Azithromycin 250 mg 250 mg DAILY PO 08/02/16 09:00 08/07/16 08:59 08/04/16 07:48 250 MG Methylprednisolone Sodium Succinate/ Syringe (Solu-Medrol IV/ Syringe) 0.96 ml @ 1.5 mls/min Q8H IV 08/02/16 18:00 09/01/16 20:59 08/04/16 11:23 1.5 MLS/MIN Piperacillin Sod/ Tazobactam Sod 1 ea 1 ea UD PRN N/A 08/02/16 17:00 09/01/16 16:59 Piperacillin Sod/ Tazobactam Sod/ Dextrose (Zosyn Iv/D5 100ml) 115 ml @ 28.75 mls/ hr Q8H IV 08/02/16 23:00 08/09/16 22:59 08/04/16 07:51 28.75 MLS/HR Dornase Alan 2.5 ml 2.5 ml BIDR INH 08/02/16 20:00 09/01/16 19:59 08/04/16 07:18 2.5 ML Furosemide/Syringe (Lasix Inj/ Syringe) 2 ml @ 4 mls/min BID17 IV 08/02/16 17:30 09/01/16 17:29 Future hold 08/04/16 07:51 4 MLS/MIN Glucose (Glucose 40% Gel) UD PRN PO 08/02/16 22:15 09/01/16 22:14 Glucose (Glucose Chew Tab) 1 tabs UD PRN PO 08/02/16 22:15 09/01/16 22:14 Dextrose (Dextrose 50% 50ML Syringe) 50 ml UD PRN IV 08/02/16 22:15 09/01/16 22:14 Glucagon (Glucagon Inj) 1 mg UD PRN SQ 08/02/16 22:15 09/01/16 22:14 Carvedilol (Coreg Tab) 25 mg BID PO 08/03/16 09:00 09/02/16 08:59 08/04/16 07:48 25 MG Spironolactone (Aldactone Tab) 25 mg QAM PO 08/03/16 09:00 09/02/16 08:59 08/04/16 07:49 25 MG Docusate Sodium (coLACE CAP) 100 mg BID PRN PO 08/03/16 08:30 09/02/16 08:29 08/03/16 18:47 100 MG Lorazepam (Ativan Tab) 1 mg BID PRN PO 08/03/16 08:30 09/02/16 08:29 08/03/16 21:36 1 MG Insulin Aspart (novoLOG ASPART) SLIDING SCALE G... ACHS IA 08/03/16 16:00 09/02/16 15:59 08/04/16 12:07 32 UNITS Insulin Glargine (Lantus Solostar Pen) 25 unit HS IA 08/03/16 16:00 09/02/16 15:59 08/03/16 15:30 25 UNIT Insulin Glargine (Lantus Solostar Pen) 10 unit TODAY@1230 IA 08/04/16 12:30 08/04/16 13:30 Insulin Aspart (novoLOG ASPART) SLIDING SCALE G... TODAY@0000,0400 IA 08/05/16 00:00 08/05/16 04:01 I & O: 24-Hour Column 08/04/16 08:00 Intake Total 1948 ml Output Total 2885 ml Balance -937 ml Vital Signs: Date Time Temp Pulse Resp B/P Pulse Ox O2 Delivery O2 Flow Rate FiO2 08/04/16 11:36 36.5 103 24 98/64 08/04/16 11:30 93 Nasal Cannula 2.0 08/04/16 11:00 94 20 94 Nasal Cannula 2.0 08/04/16 10:00 98 28 99 08/04/16 09:58 95 21 114/73 97 08/04/16 09:00 113 18 99 08/04/16 08:00 93 Nasal Cannula 2.0 08/04/16 07:59 36.4 96 24 103/73 98 Nasal Cannula 2.0 08/04/16 07:18 117 22 98 Nasal Cannula 2.0 08/04/16 07:00 109 25 98 2.0 08/04/16 06:00 126 20 109/74 97 Nasal Cannula 3.0 08/04/16 04:00 36.4 114 17 120/83 97 Nasal Cannula 3.0 08/04/16 04:00 97 Nasal Cannula 3.0 08/04/16 02:20 113 16 96 Nasal Cannula 3.0 08/04/16 02:00 116 17 112/67 96 Nasal Cannula 3.0 08/04/16 00:01 36.4 122 16 108/62 99 Nasal Cannula 3.0 08/04/16 00:00 98 Nasal Cannula 4.0 08/03/16 22:00 112 17 112/83 100 Nasal Cannula 3.0 08/03/16 20:02 105 22 100 Nasal Cannula 3.0 08/03/16 20:00 36.9 111 16 106/66 100 Nasal Cannula 4.0 08/03/16 20:00 98 Nasal Cannula 4.0 08/03/16 17:00 117 18 94 08/03/16 16:59 112 17 156/58 96 High Flow Oxygen 30 08/03/16 16:00 93 High Flow Oxygen 08/03/16 16:00 118 18 94 08/03/16 15:59 93 16 139/74 96 08/03/16 15:00 99 25 93 08/03/16 14:58 104 18 118/71 92 08/03/16 14:15 109 24 100 Nasal Cannula 30.0 08/03/16 14:00 81 14 92 08/03/16 12:58 102 27 107/74 93 Laboratory Results: Last 24 Hours Test 08/03/16 12:52 08/03/16 14:25 08/03/16 15:42 08/03/16 17:03 Bedside Glucose 127 mg/dl 148 mg/dl 191 mg/dl 244 mg/dl Test 08/03/16 19:20 08/03/16 20:22 08/03/16 23:09 08/04/16 00:00 Sodium Level 141 mmol/L Potassium Level 3.7 mmol/L Chloride Level 102 mmol/L Carbon Dioxide Level 32 mmol/L Anion Gap 7.0 mmol/L Blood Urea Nitrogen 28 mg/dl Creatinine 0.75 mg/dl Est Creatinine Clear Calc Drug Dose 106.6 ml/min Estimated GFR () 106.2 Estimated GFR (Non- 91.6 BUN/Creatinine Ratio 37.9 Random Glucose 181 mg/dl Calcium Level 7.3 mg/dl Bedside Glucose 195 mg/dl 164 mg/dl Stool Occult Blood NEGATIVE Test 08/04/16 04:21 08/04/16 05:13 08/04/16 11:32 Bedside Glucose 238 mg/dl 359 mg/dl White Blood Count 10.37 K/uL Red Blood Count 3.23 M/uL Hemoglobin 8.9 g/dL Hematocrit 28.7 % Mean Corpuscular Volume 88.9 fL Mean Corpuscular Hemoglobin 27.6 pg Mean Corpuscular Hemoglobin Concent 31.0 g/dl Platelet Count 188 K/uL Mean Platelet Volume 9.7 fL Neutrophils (%) (Auto) 92.7 % Lymphocytes (%) (Auto) 2.1 % Monocytes (%) (Auto) 4.9 % Eosinophils (%) (Auto) 0.0 % Basophils (%) (Auto) 0.0 % Neutrophils # (Auto) 9.61 K/uL Lymphocytes # (Auto) 0.22 K/uL Monocytes # (Auto) 0.51 K/uL Eosinophils # (Auto) 0.00 K/uL Basophils # (Auto) 0.00 K/uL RDW Standard Deviation 50.0 fL RDW Coefficient of Variation 15.4 % Immature Granulocyte % (Auto) 0.3 % Immature Granulocyte # (Auto) 0.03 K/uL Polychromasia 1+ Basophilic Stippling 1+ Anisocytosis PRESENT Prothrombin Time 48.1 SECONDS Prothromb Time International Ratio 4.2 Sodium Level 141 mmol/L Potassium Level 3.5 mmol/L Chloride Level 102 mmol/L Carbon Dioxide Level 33 mmol/L Anion Gap 6.0 mmol/L Blood Urea Nitrogen 30 mg/dl Creatinine 0.69 mg/dl Est Creatinine Clear Calc Drug Dose 115.9 ml/min Estimated GFR () 109.9 Estimated GFR (Non- 94.8 BUN/Creatinine Ratio 43.4 Random Glucose 225 mg/dl Calcium Level 7.7 mg/dl
[2016-08-04] MEDS ORDERED: POTASSIUM CHLORIDE 20 MEQ TABCR PO ONE (13:00)
[2016-08-04] MEDS ORDERED: INSULIN ASPART 100 UNITS/ML 3 ML PEN SC ONE (14:15)
--- NOTE | 2016-08-04 15:05 | Family Medicine Progress Note ---
Progress Note Date of Service Aug 04, 2016. Subjective Pt evaluation today including: conversation w/ patient, physical exam, chart review, lab review Patient feeling significantly better since chest tube insertion. Says his breathing has become more comfortable, although he attributes this to inhalers working. Frustrated with diet provided. Says he has slept well. No acute health concerns at this time. Constitutional: No chills, No fever Respiratory: + shortness of breath, No cough, No wheezing Cardiovascular: No chest pain, No palpitations Abdomen: No constipation, No diarrhea, No nausea, No pain, No vomiting Male : No dysuria Neurologic: + numbness/tingling (longstanding), No weakness Objective Vital Signs Date Time Temp Pulse Resp B/P Pulse Ox O2 Delivery O2 Flow Rate FiO2 08/04/16 16:03 36.3 103 16 121/69 95 Nasal Cannula 2.0 08/04/16 16:00 96 Nasal Cannula 2.0 08/04/16 14:09 110 20 96 Nasal Cannula 2.0 08/04/16 13:45 36.4 87 17 113/67 91 Room Air 08/04/16 11:36 36.5 103 24 98/64 08/04/16 11:30 93 Nasal Cannula 2.0 08/04/16 11:00 94 20 94 Nasal Cannula 2.0 08/04/16 10:00 98 28 99 08/04/16 09:58 95 21 114/73 97 08/04/16 09:00 113 18 99 08/04/16 08:00 93 Nasal Cannula 2.0 08/04/16 07:59 36.4 96 24 103/73 98 Nasal Cannula 2.0 08/04/16 07:18 117 22 98 Nasal Cannula 2.0 08/04/16 07:00 109 25 98 2.0 08/04/16 06:00 126 20 109/74 97 Nasal Cannula 3.0 08/04/16 04:00 36.4 114 17 120/83 97 Nasal Cannula 3.0 08/04/16 04:00 97 Nasal Cannula 3.0 08/04/16 02:20 113 16 96 Nasal Cannula 3.0 08/04/16 02:00 116 17 112/67 96 Nasal Cannula 3.0 08/04/16 00:01 36.4 122 16 108/62 99 Nasal Cannula 3.0 08/04/16 00:00 98 Nasal Cannula 4.0 08/03/16 22:00 112 17 112/83 100 Nasal Cannula 3.0 08/03/16 20:02 105 22 100 Nasal Cannula 3.0 08/03/16 20:00 36.9 111 16 106/66 100 Nasal Cannula 4.0 08/03/16 20:00 98 Nasal Cannula 4.0 Physical Exam General Appearance: WD/WN, no apparent distress ENT: pharynx normal Neck: supple, no adenopathy Respiratory/Chest: no respiratory distress, no accessory muscle use, + decreased breath sounds, + crackles Cardiovascular: no murmur, + tachycardia, + irregularly irregular Abdomen: normal bowel sounds, non tender, soft Extremities: non-tender, no pedal edema, no calf tenderness Neurologic/Psychiatric: alert, normal mood/affect, oriented x 3 Skin: normal color, warm/dry, no rash Laboratory Results Results Past 24 Hours Test 08/03/16 19:20 08/03/16 20:22 08/03/16 23:09 08/04/16 00:00 Range/Units Sodium Level 141 136-145 mmol/L Potassium Level 3.7 3.5-5.1 mmol/L Chloride Level 102 98-107 mmol/L Carbon Dioxide Level 32 21-32 mmol/L Anion Gap 7.0 3-11 mmol/L Blood Urea Nitrogen 28 7-18 mg/dl Creatinine 0.75 0.60-1.40 mg/dl Est Creatinine Clear Calc Drug Dose 106.6 ml/min Estimated GFR () 106.2 Estimated GFR (Non- 91.6 BUN/Creatinine Ratio 37.9 10-20 Random Glucose 181 70-99 mg/dl Calcium Level 7.3 8.5-10.1 mg/dl Bedside Glucose 195 164 70-99 mg/dl Stool Occult Blood NEGATIVE NEGATIVE Test 08/04/16 04:21 08/04/16 05:13 08/04/16 11:32 08/04/16 13:48 Range/Units Bedside Glucose 238 359 351 70-99 mg/dl White Blood Count 10.37 4.8-10.8 K/uL Red Blood Count 3.23 4.7-6.1 M/uL Hemoglobin 8.9 14.0-18.0 g/dL Hematocrit 28.7 42-52 % Mean Corpuscular Volume 88.9 80-100 fL Mean Corpuscular Hemoglobin 27.6 25-34 pg Mean Corpuscular Hemoglobin Concent 31.0 32-36 g/dl Platelet Count 188 130-400 K/uL Mean Platelet Volume 9.7 7.4-10.4 fL Neutrophils (%) (Auto) 92.7 % Lymphocytes (%) (Auto) 2.1 % Monocytes (%) (Auto) 4.9 % Eosinophils (%) (Auto) 0.0 % Basophils (%) (Auto) 0.0 % Neutrophils # (Auto) 9.61 1.4-6.5 K/uL Lymphocytes # (Auto) 0.22 1.2-3.4 K/uL Monocytes # (Auto) 0.51 0.11-0.59 K/uL Eosinophils # (Auto) 0.00 0-0.5 K/uL Basophils # (Auto) 0.00 0-0.2 K/uL RDW Standard Deviation 50.0 36.4-46.3 fL RDW Coefficient of Variation 15.4 11.5-14.5 % Immature Granulocyte % (Auto) 0.3 % Immature Granulocyte # (Auto) 0.03 0.00-0.02 K/uL Polychromasia 1+ Basophilic Stippling 1+ Anisocytosis PRESENT Prothrombin Time 48.1 9.0-12.0 SECONDS Prothromb Time International Ratio 4.2 0.9-1.1 Sodium Level 141 136-145 mmol/L Potassium Level 3.5 3.5-5.1 mmol/L Chloride Level 102 98-107 mmol/L Carbon Dioxide Level 33 21-32 mmol/L Anion Gap 6.0 3-11 mmol/L Blood Urea Nitrogen 30 7-18 mg/dl Creatinine 0.69 0.60-1.40 mg/dl Est Creatinine Clear Calc Drug Dose 115.9 ml/min Estimated GFR () 109.9 Estimated GFR (Non- 94.8 BUN/Creatinine Ratio 43.4 10-20 Random Glucose 225 70-99 mg/dl Calcium Level 7.7 8.5-10.1 mg/dl Test 08/04/16 16:32 Range/Units Bedside Glucose 106 70-99 mg/dl Assessment and Plan 70 year old male presents with acute hypoxic respiratory failure secondary to recurrent bilateral pleural effusions, on background of COPD with 2L O2 at home , poorly controlled T2DM, diastolic CHF, and hypothyroidism. Symptoms attributed to acute on chronic CHF. Concurrent management with diuresis and chest tube drainage. Acute on Chronic Diastolic CHF CXR showed Cardiomegaly with evidence of congestive failure, interstitial edema and pleural effusions. Echo showed LV dilation with mild global hypokinesis, EF = 50-55%. TR regurg. Elevated RV systolic pressure. RA and IVC dilation. Chest drain in place, fluid transudative. - CHF protocols in place: fluid restriction limit to 1.5L, monitor I/O and weight change, assess hydration status. - Continue aggressive diuresis with IV Lasix while monitoring renal function. Replete electrolytes as necessary. Afib with RVR Rate control insufficient with max dose Coreg, diltiazem added. Warfarin regimen altered in view of supratherapeutic INR, likely indicative of poor compliance of warfarin at home. Dosage withheld x2 days. Target INR 2.5-3.5 - Continue Coreg 25mg BID and diltiazem 30mg TID - Continue warfarin regimen: Mon, Fri, Fri, Sun - 3mg; , , Sat - 2mg Acute on chronic hypoxic respiratory failure with hypoxia and hypercapnia Pulmonology consulted, appreciate their recommendation. Aggressively treated with high flow oxygen, intermittent vibration therapy, inhalers, steroids. Left radial arterial line inserted on 08/03/15 for frequent lab draws and blood gases and pigtail catheter inserted into posterior left chest cavity on 08/03/15 to drain pleural effusion. Capping drainage to 1000cc daily. Fluid sent for micro and lab analysis. Culture results pending. - Continue Duoneb INH q6h, Albuterol q4h prn, Dornase INH BID - Continue prednisone - Trace fluid culture results COPD exacerbation Active smoker of tobacco and marijuana. Received 125mg of Solumedrol in ED with steroid administration continued thereafter. Requiring oxygen supplement via [place] , patient refusing CPAP due to intolerance - Continue prednisone - Continue Duoneb INH q6h, Albuterol q4h prn, Dornase INH BID - Consider tapering steroids over the next 5-7 days as they are most likely adding to is volume overload state - Pulmonary recommended adding Spiriva and possible Roflumilast prior to d/c but not this time given his state, obtain previous PFT. Hospital acquired pneumonia Initial CXR requested clinical correlation for evidence of superimposed pneumonia. No improvement on augmentin, so switch to broad spectrum IV Zosyn and Azithromycin. Blood cultures negative. - Video swallow study to rule out aspiration to be performed / - Re-assess need for antibiotics given negative cultures and primary source for his SOB determined to be secondary to cardiac cause Neuropathic pain secondary to poorly controlled DM - Start Gabapentin 300mg BID - He has previously been on significantly higher doses previously, titrate up as necessary Chronic Right heel ulceration Likely secondary to neuropathy - Wound care consulted and will continue to follow Poorly controlled DM type 2 Possibly further exacerbated by steroid use for COPD exacerbation - Continue Lantus + Aspart sliding scale with AC/HS BSG Recent H/O severe GI bleed requiring blood transfusion - Continue Carafate 1g and Protonix 20mg daily Depression - Continue Paroxetine 20mg BPH - Continue tamsulosin 0.4mg DVT Prophylaxis - Warfarin Code status - Limited code, no CPR no intubation if not breathing and no pulse Continued [facility] stay due to: abnormal vital signs, multiple IV medications needed Resident Involvement: Resident Care Provided Care Provided: Adult Hospital Medicine History Resident Physician Supervision Note: I was present with Dr. Naylor during the history and exam. I discussed the case with the resident and agree with the findings and plan as documented in the note. Any exceptions or clarifications are listed here. Pt seen and examined at bedside. Patient reports considerable improvement in SOB since pigtail placement in LLL. Persistent nonproductive rattling cough. Diffuse weakness with difficulty with mobility. Reports no CP, palpitations, lightheadedness, nausea. Paresthetic pain at baseline. General Appearance: mild distress (respiratory) Respiratory: decreased breath sounds (improved marginally at LLL), rales, rhonchi, wheezing Cardiovascular: normal peripheral pulses, no murmur, irregularly irregular, other (trace b/l LE edema) Skin Characteristics: normal color Assessment/Plan 69 y/o male h/o b/l pleural effusions, COPD, DMII, CHF p/w AHRF A on CHRF - pulmonology aware and input appreciated - pulmozyme, zosyn, intermittent vibration therapy, encourage BiPAP w/ SOB - s/p pigtail cath in LLL w/ ~1200cc drained total Acute on chronic dCHF w/ Effusion - will monitor closely - IV lasix titration, I /O, daily wts, fluid restrict to 1.5L, trend BMP - echo completed PAF - warfarin and coreg. Addition of dilt for elevated heart rate COPD exacerbation - continue duonebs, solu-medrol, pulmozyme, mucomyst - consider transition to PO steroids tomorrow HCAP - trend CBC, azithromycin/zosyn, barium swallow pending for further eval of esophageal motility (08/05) - would consider re-narrow of abx in AM DMII - poorly controlled at present - lantus and ISS, up adjust and follow Supratherapeutic INR - holding x 2 days and restart at 10% drop tomorrow Neuropathy - gabapentin 300mg TID, h/o considerable medication use to curb pain and mood LE wound - wound care aware Depression - continue paroxetine BPH - tamsulosin Dispo: Respiratory issues improved w/ drain, considerable congestion likely component of SOB requiring lasix titration, will need PT/OT 2/2 diffuse weakness
[2016-08-04] MEDS ORDERED: DILTIAZEM HCL 30 MG TAB PO ONE (15:27)
--- NOTE | 2016-08-04 15:44 | Pulmonology Progress Note ---
Pulmonary Progress Note Date of Service Aug 04, 2016. Attending Ant Beaver Subjective Patient notes dramatic improvement in his breathing Objective Patient resting in bed and able to complete full sentences without accessory muscles or tachypnea Vital signs: Reviewed Respiratory: minimal bilateral crackles noted Cardiac: S1-S2 very distant heart sounds unable to auscultate Sugars: No clubbing cyanosis or edema noted CT sight in tack with no signs or secondary erythema or break-down [facility]: Moderate obstructive ventilatory disease FEV1/FVC: 67 FEV1: 2.43/68% FVC: 3.63/75% Is and Os: -6.5 L over the last 48 hours Assessment & Plan #1 COPD: Patient's previous FEV1: 68% notable for only moderate flow obstruction based off ATS standards. Patients steroids can be tapered down over the next 5-7 days as they are most likely adding to is volume overload state. #2 Diastolic Heart Failure: aggressive diureses with pleural fluid drainage and notable improvement suggests large component or diastolic heart failure. Proper diuresis with renal functioning monitored. #3 ID: I believe we can d/c the patient's anti-biotics at this time as his cultures are negative and a primary source for his SOB has been discovered. #4 Agree with patient being placed is a DNR/DNI by Dr. Nam Suarez of the ICU team Pulmonary will sign off at this time. Dr. Shrestha is on next week if necessary Data Medications: Current Inpatient Medications Medications (Trade) Dose Ordered Sig/Sujatha Route Start Time Stop Time Status Last Admin Dose Admin Acetaminophen (Tylenol Tab) 650 mg Q4H PRN PO 07/31/16 01:15 08/30/16 01:14 Al Hydrox/Mg Hydrox/Simethicone (Maalox Max Susp) 15 ml Q4H PRN PO 07/31/16 01:15 08/30/16 01:14 Ondansetron HCl (Zofran Inj) 4 mg Q6H PRN IV 07/31/16 01:15 08/30/16 01:14 Nitroglycerin (Nitrostat Tab) 0.4 mg UD PRN SL 07/31/16 01:15 08/30/16 01:14 Morphine Sulfate (MoRPHine SULFATE INJ) 2 mg Q30M PRN IV 07/31/16 01:15 08/14/16 01:14 Bisacodyl (Dulcolax Supp) 5 mg PRN PRN MN 07/31/16 01:30 08/30/16 01:29 07/31/16 20:24 5 MG Cyanocobalamin (Vitamin B-12 Tab) 500 mcg DAILY PO 07/31/16 09:00 08/30/16 08:59 08/04/16 07:48 500 MCG Levothyroxine Sodium (Synthroid Tab) 25 mcg DAILYBB PO 07/31/16 06:00 08/30/16 05:59 08/04/16 06:00 25 MCG Magnesium Hydroxide (Milk Of Magnesia Susp) 30 ml HS PRN PO 07/31/16 01:30 08/30/16 01:29 08/03/16 18:47 30 ML Paroxetine HCl (pAXil TAB) 20 mg HS PO 07/31/16 21:00 08/30/16 20:59 08/03/16 20:13 20 MG Sodium Biphosphate/ Sodium Phosphate (Fleet Enema) 1 ml DAILY PRN MN 07/31/16 01:30 08/30/16 01:29 Sucralfate (Carafate Susp) 1 gm ACHS PO 07/31/16 07:00 08/30/16 06:59 08/04/16 11:23 1 GM Tamsulosin HCl (Flomax Cap) 0.4 mg HS PO 07/31/16 21:00 08/30/16 20:59 08/03/16 20:14 0.4 MG Warfarin Sodium (Coumadin Tab) 3 mg DAILY@1600 PO 07/31/16 16:00 08/30/16 15:59 Future Hold 08/02/16 17:14 3 MG Albuterol/ Ipratropium (Duoneb) 3 ml Q6R INH 07/31/16 03:00 08/30/16 02:59 08/04/16 14:09 3 ML Miscellaneous Information (Consult Glycemic Management Pharmacy) 1 ea UD PRN N/A 07/31/16 02:39 08/30/16 02:38 Miconazole Nitrate (Desenex Powder) 1 appln PRN PRN EXT 07/31/16 11:45 08/30/16 11:44 07/31/16 22:00 1 APPLN Pantoprazole Sodium (Protonix Tab) 40 mg QAM PO 08/01/16 09:00 3/4/17 08:59 08/04/16 07:49 40 MG Gabapentin (Neurontin Cap) 300 mg BID PO 07/31/16 21:00 08/30/16 20:59 08/04/16 07:48 300 MG Zolpidem Tartrate (Ambien Tab) 5 mg HS PRN PO 08/01/16 00:00 08/31/16 00:00 08/02/16 23:47 5 MG Albuterol Sulfate (Ventolin 0.083% 2.5MG/3ML Neb) 2.5 mg Q4H PRN INH 08/01/16 13:30 08/31/16 13:29 Lorazepam (Ativan Tab) 0.5 mg Q6 PRN PO 08/01/16 12:15 08/31/16 12:14 08/03/16 10:36 0.5 MG Acetylcysteine (Mucomyst 20% Inh Soln) 3 ml BIDR INH 08/01/16 20:00 08/31/16 19:59 08/04/16 07:18 3 ML Azithromycin (Zithromax Tab) 250 mg DAILY PO 08/02/16 09:00 08/07/16 08:59 08/04/16 07:48 250 MG Piperacillin Sod/ Tazobactam Sod 1 ea 1 ea UD PRN N/A 08/02/16 17:00 09/01/16 16:59 Piperacillin Sod/ Tazobactam Sod/ Dextrose (Zosyn Iv/D5 100ml) 115 ml @ 28.75 mls/ hr Q8H IV 08/02/16 23:00 08/09/16 22:59 08/04/16 14:39 28.75 MLS/HR Dornase Alan 2.5 ml 2.5 ml BIDR INH 08/02/16 20:00 09/01/16 19:59 08/04/16 07:18 2.5 ML Furosemide/Syringe (Lasix Inj/ Syringe) 2 ml @ 4 mls/min BID17 IV 08/02/16 17:30 09/01/16 17:29 Future hold 08/04/16 07:51 4 MLS/MIN Glucose (Glucose 40% Gel) UD PRN PO 08/02/16 22:15 09/01/16 22:14 Glucose (Glucose Chew Tab) 1 tabs UD PRN PO 08/02/16 22:15 09/01/16 22:14 Dextrose (Dextrose 50% 50ML Syringe) 50 ml UD PRN IV 08/02/16 22:15 09/01/16 22:14 Glucagon (Glucagon Inj) 1 mg UD PRN SQ 08/02/16 22:15 09/01/16 22:14 Carvedilol (Coreg Tab) 25 mg BID PO 08/03/16 09:00 09/02/16 08:59 08/04/16 07:48 25 MG Spironolactone (Aldactone Tab) 25 mg QAM PO 08/03/16 09:00 09/02/16 08:59 08/04/16 07:49 25 MG Docusate Sodium (coLACE CAP) 100 mg BID PRN PO 08/03/16 08:30 09/02/16 08:29 08/03/16 18:47 100 MG Lorazepam (Ativan Tab) 1 mg BID PRN PO 08/03/16 08:30 09/02/16 08:29 08/03/16 21:36 1 MG Insulin Aspart (novoLOG ASPART) SLIDING SCALE G... ACHS SC 08/03/16 16:00 09/02/16 15:59 08/04/16 12:07 32 UNITS Insulin Glargine (Lantus Solostar Pen) 25 unit HS SC 08/03/16 16:00 09/02/16 15:59 08/03/16 15:30 25 UNIT Insulin Aspart (novoLOG ASPART) SLIDING SCALE G... TODAY@0000,0400 GA 08/05/16 00:00 08/05/16 04:01 Potassium Chloride (Klor-Con Tab) 40 meq BID PO 08/04/16 21:00 08/04/16 21:01 Prednisone (PredniSONE TAB) 40 mg DAILY PO 08/05/16 09:00 09/04/16 08:59 I & O: 24-Hour Column 08/04/16 07:59 Intake Total 1948 ml Output Total 2885 ml Balance -937 ml Vital Signs: Date Time Temp Pulse Resp B/P Pulse Ox O2 Delivery O2 Flow Rate FiO2 08/04/16 14:09 110 20 96 Nasal Cannula 2.0 08/04/16 13:45 36.4 87 17 113/67 91 Room Air 08/04/16 11:36 36.5 103 24 98/64 08/04/16 11:30 93 Nasal Cannula 2.0 08/04/16 11:00 94 20 94 Nasal Cannula 2.0 08/04/16 10:00 98 28 99 08/04/16 09:58 95 21 114/73 97 08/04/16 09:00 113 18 99 08/04/16 08:00 93 Nasal Cannula 2.0 08/04/16 07:59 36.4 96 24 103/73 98 Nasal Cannula 2.0 08/04/16 07:18 117 22 98 Nasal Cannula 2.0 08/04/16 07:00 109 25 98 2.0 08/04/16 06:00 126 20 109/74 97 Nasal Cannula 3.0 08/04/16 04:00 36.4 114 17 120/83 97 Nasal Cannula 3.0 08/04/16 04:00 97 Nasal Cannula 3.0 08/04/16 02:20 113 16 96 Nasal Cannula 3.0 08/04/16 02:00 116 17 112/67 96 Nasal Cannula 3.0 08/04/16 00:01 36.4 122 16 108/62 99 Nasal Cannula 3.0 08/04/16 00:00 98 Nasal Cannula 4.0 08/03/16 22:00 112 17 112/83 100 Nasal Cannula 3.0 08/03/16 20:02 105 22 100 Nasal Cannula 3.0 08/03/16 20:00 36.9 111 16 106/66 100 Nasal Cannula 4.0 08/03/16 20:00 98 Nasal Cannula 4.0 08/03/16 17:00 117 18 94 08/03/16 16:59 112 17 156/58 96 High Flow Oxygen 30 08/03/16 16:00 93 High Flow Oxygen 08/03/16 16:00 118 18 94 08/03/16 15:59 93 16 139/74 96 Laboratory Results: Last 24 Hours Test 08/03/16 15:42 08/03/16 17:03 08/03/16 19:20 08/03/16 20:22 Bedside Glucose 191 mg/dl 244 mg/dl 195 mg/dl Sodium Level 141 mmol/L Potassium Level 3.7 mmol/L Chloride Level 102 mmol/L Carbon Dioxide Level 32 mmol/L Anion Gap 7.0 mmol/L Blood Urea Nitrogen 28 mg/dl Creatinine 0.75 mg/dl Est Creatinine Clear Calc Drug Dose 106.6 ml/min Estimated GFR () 106.2 Estimated GFR (Non- 91.6 BUN/Creatinine Ratio 37.9 Random Glucose 181 mg/dl Calcium Level 7.3 mg/dl Test 08/03/16 23:09 08/04/16 00:00 08/04/16 04:21 08/04/16 05:13 Bedside Glucose 164 mg/dl 238 mg/dl Stool Occult Blood NEGATIVE White Blood Count 10.37 K/uL Red Blood Count 3.23 M/uL Hemoglobin 8.9 g/dL Hematocrit 28.7 % Mean Corpuscular Volume 88.9 fL Mean Corpuscular Hemoglobin 27.6 pg Mean Corpuscular Hemoglobin Concent 31.0 g/dl Platelet Count 188 K/uL Mean Platelet Volume 9.7 fL Neutrophils (%) (Auto) 92.7 % Lymphocytes (%) (Auto) 2.1 % Monocytes (%) (Auto) 4.9 % Eosinophils (%) (Auto) 0.0 % Basophils (%) (Auto) 0.0 % Neutrophils # (Auto) 9.61 K/uL Lymphocytes # (Auto) 0.22 K/uL Monocytes # (Auto) 0.51 K/uL Eosinophils # (Auto) 0.00 K/uL Basophils # (Auto) 0.00 K/uL RDW Standard Deviation 50.0 fL RDW Coefficient of Variation 15.4 % Immature Granulocyte % (Auto) 0.3 % Immature Granulocyte # (Auto) 0.03 K/uL Polychromasia 1+ Basophilic Stippling 1+ Anisocytosis PRESENT Prothrombin Time 48.1 SECONDS Prothromb Time International Ratio 4.2 Sodium Level 141 mmol/L Potassium Level 3.5 mmol/L Chloride Level 102 mmol/L Carbon Dioxide Level 33 mmol/L Anion Gap 6.0 mmol/L Blood Urea Nitrogen 30 mg/dl Creatinine 0.69 mg/dl Est Creatinine Clear Calc Drug Dose 115.9 ml/min Estimated GFR () 109.9 Estimated GFR (Non- 94.8 BUN/Creatinine Ratio 43.4 Random Glucose 225 mg/dl Calcium Level 7.7 mg/dl Test 08/04/16 11:32 08/04/16 13:48 Bedside Glucose 359 mg/dl 351 mg/dl
[2016-08-04] MEDS ORDERED: POTASSIUM CHLORIDE 20 MEQ TABCR PO SCH (21:00)
[2016-08-04] MEDS: LORAZEPAM 1 MG TAB PO PRN (21:28)
[2016-08-04] MEDS: PAROXETINE 20 MG TAB PO SCH (21:28)
[2016-08-04] MEDS: TAMSULOSIN HCL 0.4 MG CAP PO SCH (21:28)
[2016-08-04] MEDS: DILTIAZEM HCL 30 MG TAB PO SCH (21:28)
[2016-08-04] MEDS: ALBUTEROL 0.083% NEBU SOLN 3 ML VIAL INH PRN (23:09)
[2016-08-05] VITALS (13 sets, daily range): BP systolic 97–127; BP diastolic 59–77; PULSE 82–102; TEMP 36.3–36.5; O2SAT 92–98; BMI 29.1
[2016-08-05] MEDS: ALBUT/IPRATROP 3MG/0.5MG NEB 3 ML VIAL INH SCH ×4 (02:13→19:23)
[2016-08-05] MEDS: INSULIN ASPART 100 UNITS/ML 3 ML PEN SC SCH ×6 (03:41→21:24)
[2016-08-05] MEDS: LEVOTHYROXINE 25 MCG TAB PO SCH (04:20)
[2016-08-05 05:02] LABS: HEMATOCRIT 28.9 % (42-52); MEAN CELL VOLUME 86.8 fL (80-100); MEAN CORPUSCULAR HGB CONC 31.1 g/dl (32-36); MEAN PLATELET VOLUME 9.4 fL (7.4-10.4); PLATELET COUNT 175 K/uL (130-400); RED BLOOD COUNT 3.33 M/uL (4.7-6.1)
[2016-08-05 05:17] LABS: INR 3.1 (0.9-1.1); PROTHROMBIN TIME (PATIENT) 34.4 SECONDS (9.0-12.0)
[2016-08-05 05:30] LABS: BUN/CREATININE RATIO 41.9 (10-20); CALCIUM 7.7 mg/dl (8.5-10.1); CREATININE 0.9 mg/dl (0.60-1.40); POTASSIUM 4.4 mmol/L (3.5-5.1)
[2016-08-05 06:18] LABS: ACANTHOCYTES 1+; COMPLETE YES; IG% 0.4 %; LYMPH % 5.1 %; LYMPH ABS # 0.48 K/uL (1.2-3.4); MONO % 6.5 %
[2016-08-05] MEDS: DORNASE ALFA (2500U) 2.5MG/2.5ML INH SCH ×2 (07:08→19:23)
[2016-08-05] MEDS: ACETYLCYSTEINE 20% INHAL SOLN ***DISPENSED BY RESP. INH SCH ×2 (07:08→19:23)
--- NOTE | 2016-08-05 07:27 | Family Medicine Progress Note ---
Progress Note Date of Service Aug 05, 2016. Subjective Pt evaluation today including: conversation w/ patient, physical exam, chart review, lab review, review of studies The patient was seen and examined at bedside. No acute overnight events. Telemetry monitoring showed Afib in the 80s overnight. Pt just woke up on exam. Has no complaints except being hungry. Pt is not happy that his lungs are chronically an issue. Pt denies have any SOB or being in any pain. Pt has a chest tube with over 700cc of fluid. Krueger is draining clear yellow urine. Plan of care was described to the patient and all questions were answered. *In the afternoon, patient refused a video swallow today that was ordered by Dr. Beaver - his reasoning is that it will turn his coffee into mush. Constitutional: No chills, No fever Respiratory: No cough, No shortness of breath, No sputum, No wheezing Cardiovascular: No chest pain Objective Physical Exam General Appearance: WD/WN, no apparent distress Eyes: normal inspection, PERRL ENT: normal ENT inspection Neck: supple Respiratory/Chest: chest non-tender, no respiratory distress, no accessory muscle use, + pertinent finding (Decreased breath sounds in all lung rodriguez. ) Cardiovascular: regular rate, rhythm, no edema, no gallop, no JVD, no murmur Abdomen: normal bowel sounds, non tender, soft, no organomegaly Extremities: normal range of motion, non-tender, normal inspection Neurologic/Psychiatric: alert, normal mood/affect, oriented x 3 Skin: normal color, warm/dry, no rash Assessment and Plan 70 year old male presents with acute hypoxic respiratory failure secondary to recurrent bilateral pleural effusions, on background of COPD with 2L O2 at home , poorly controlled DM2, diastolic CHF, and hypothyroidism. Symptoms attributed to acute on chronic CHF. Concurrent management with diuresis, krueger and chest tube drainage. Patient refused Video Speech Swallow on 08/05/16. Acute on chronic hypoxic respiratory failure 2/2 CHF, r/o COPD or infection - Continue CHF Mx - Per Pulm, unlikely COPD or infectious process. (cultures negative, pleural fluid negative, blood cultures negative.) - Pt refused Video swallow study to rule out aspiration. - Will DC ABx and taper Prednisone to 20mg, last does on Friday and Friday. - Continue Duoneb INH q6h, Albuterol q4h prn, Dornase INH BID Acute on Chronic Diastolic CHF - Improving clinically. Chest Tube drained 700cc+ of fluid. - Hypoxic respiratory failure is likely due to CHF, not an infectious process or COPD exacerbation. - CHF protocols in place: fluid restriction limit to 1.5L, monitor I/O and weight change, assess hydration status. - c/w IV Lasix 20IV BID and continue to monitor. - c/w Aldactone 25mg daily. Afib with RVR - Telemetry showed Afib in the 80s with runs into the 130s. Pt denies any cardiac symptoms. Rate is <100s on exam. - c/w Coreg 25mg BID and diltiazem 30mg TID - c/w Warfarin 2mg daily, monitor PT/INR (3.1 today), suggested regimen: Mon, Wed, Fri, Sun - 3mg; Tu, Th, Sat - 2mg Neuropathic pain 2/2 DM2 - c/w Gabapentin 300mg BID - He has previously been on significantly higher doses previously, titrate up as necessary Chronic Right heel ulceration and Left Forearm Skin Tear - Wound care on board. DM2 - Continue Lantus + Aspart sliding scale with AC/HS BSG Recent H/O severe GI bleed requiring blood transfusion - Continue Carafate 1g and Protonix 40mg daily Depression - c/w Paroxetine 20mg daily BPH - c/w tamsulosin 0.4mg daily. DVT Prophylaxis - Warfarin daily. Code status - Limited code, no CPR no intubation if not breathing and no pulse Resident Involvement: Resident Care Provided Care Provided: Adult Hospital Medicine Reviewed: Pt Seen/Exam by Me History breathing better. looking forward to getting out of the hospital Constitutional: denies: fever Respiratory: positive: short of breath (better though) Cardiovascular: denies chest pain Gastrointestinal/Abdominal: negative: abdominal pain General Appearance: no apparent distress Respiratory: no respiratory distress, decreased breath sounds, other (left side chest tube +) Cardiovascular: irregularly irregular Neurologic/Psychiatric: alert, oriented x 3 Skin Characteristics: warm/dry Assessment/Plan I have reviewed the medical record and performed a history and physical examination of this patient today. I have discussed the case with Dr. Garsia. The above note reflects my findings, conclusions, and recommendations.
[2016-08-05] MEDS ORDERED: INSULIN GLARGINE SOLOSTAR 100 UNITS/ML 3 ML PEN SC SCH ×2 (09:00→21:00)
[2016-08-05] MEDS: CYANOCOBALAMIN 500 MCG TAB (VIT B-12) PO SCH (09:12)
[2016-08-05] MEDS: SUCRALFATE 1 GM/10 ML UDC PO SCH ×4 (09:12→21:25)
[2016-08-05] MEDS: FUROSEMIDE INJ 20 MG in SYRINGE 0 ML IV SCH ×2 (09:12→15:27)
[2016-08-05] MEDS: PANTOprazole SOD 40 MG TAB PO SCH (09:12)
[2016-08-05] MEDS: SPIRONOLACTONE 25 MG TAB PO SCH (09:13)
[2016-08-05] MEDS: CARVEDILOL 25 MG TAB PO SCH ×2 (09:13→21:25)
[2016-08-05] MEDS: DILTIAZEM HCL 30 MG TAB PO SCH ×3 (09:13→21:25)
[2016-08-05] MEDS: GABAPENTIN 300 MG CAP PO SCH ×2 (09:13→21:25)
[2016-08-05] MEDS: AZITHROMYCIN 250 MG TAB PO SCH (09:15)
[2016-08-05] MEDS: PIPERACILL/TAZOBAC IV 3.375 GM in DEXTROSE 5% 100ML IV SCH (09:24)
--- NOTE | 2016-08-05 12:14 | Pharmacy Progress Note ---
Glycemic Control: Progress Nt Date of Service Aug 05, 2016. Scope Glycemic Pharmacist consulted by Dr Davison on 07/31/16 for glycemic control and to write orders per [facility] inpatient glycemic control protocol. Objective Accuchecks BSG (last 24hrs): Test 08/04/16 13:48 08/04/16 16:32 08/04/16 20:13 08/04/16 20:14 Bedside Glucose 351 mg/dl (70-99) 106 mg/dl (70-99) 65 mg/dl (70-99) 60 mg/dl (70-99) Test 08/04/16 20:35 08/04/16 20:55 08/04/16 21:13 08/04/16 23:55 Bedside Glucose 52 mg/dl (70-99) 58 mg/dl (70-99) 91 mg/dl (70-99) 180 mg/dl (70-99) Test 08/05/16 03:31 08/05/16 04:47 08/05/16 07:06 08/05/16 10:52 Bedside Glucose 272 mg/dl (70-99) 217 mg/dl (70-99) 273 mg/dl (70-99) Random Glucose 232 mg/dl (70-99) Laboratory Data (last 24hrs) Test 08/05/16 04:47 Anion Gap 6.0 mmol/L BUN/Creatinine Ratio 41.9 Blood Urea Nitrogen 38 mg/dl Creatinine 0.90 mg/dl Potassium Level 4.4 mmol/L Sodium Level 143 mmol/L White Blood Count 9.50 K/uL Red Blood Count 3.33 M/uL Hemoglobin 9.0 g/dL Hematocrit 28.9 % Mean Corpuscular Volume 86.8 fL Mean Corpuscular Hemoglobin 27.0 pg Mean Corpuscular Hemoglobin Concent 31.1 g/dl Platelet Count 175 K/uL Mean Platelet Volume 9.4 fL Neutrophils (%) (Auto) 88.0 % Lymphocytes (%) (Auto) 5.1 % Monocytes (%) (Auto) 6.5 % Eosinophils (%) (Auto) 0.0 % Basophils (%) (Auto) 0.0 % Neutrophils # (Auto) 8.36 K/uL Lymphocytes # (Auto) 0.48 K/uL Monocytes # (Auto) 0.62 K/uL Eosinophils # (Auto) 0.00 K/uL Basophils # (Auto) 0.00 K/uL HbA1c: Test 07/30/16 22:04 Hemoglobin A1c 7.6 %(4.5-5.6) H Recent Pertinent Medications Outpatient Anti-diabetic Regimen: * Lantus 24 units SQ q HS * Regular insulin sliding scale * Prednisone 10mg PO daily * A1c = 7.6 % 07/02/16 The patient is currently receiving: * Basal insulin: Lantus 15 units SQ x1 on 08/04 AM Lantus 25 units SQ q PM - refused PM dose on 08/04 * Correctional Insulin: NovoLog Correction per scale AC/HS/ Goal Range: Low 120 mg/dL - High 140 mg/dL Correction Factor: 15 mg/dL/unit * Prandial insulin: Per carb ratio of 1 unit per 6 grams CHO consumed Risk Factors for Insulin Resistance: * Steroids: Solu-Medrol 60mg IV every 8 hours --> prednisone 40mg PO daily * Infection: Zosyn IV and Zithromax PO * IVF: being diuresed * Diet: T2DM/AHA/Low Na - tolerating well per notes Assessment & Plan ASSESSMENT: 08/04/16 * Pt with significant steroid induced hyperglycemia - receiving Solu-Medrol 60mg IV Q8hrs. * Was on IV insulin infusion x ~ 18hrs from 08/02-08/03. Transitioned to SQ basal bolus insulin regimen based on high stress on 08/03 PM * After transitioning to SQ BSGs were as follows: 195, 164, 238, 225, up to 359 prior to lunch today. * Patient has the tendency to snack between meals and CHO not covered w/ insulin d/t nursing not always aware that patient is eating. Pt extremely non- compliant with inpatient diet leading to severe hyperglycemia. * AM fasting BSG was 225mg/dl this morning --> Gave additional 15 units of Lantus x 1 and tightened bolus insulin parameters * Will need to treat severe hyperglycemia prior to lunch * Steroids just tapered; changed from ATC Solu-Medrol to once daily prednisone 40mg starting tomorrow. Should see an improvement with this step down in steroid dosing. * Steroids have their most profound effect on post-prandial hyperglycemia --> aggressive CF/CR warranted * Do not necessarily want to cover steroid induced hyperglycemia with long acting insulin (Lantus) as this may lead to hypoglycemia when steroid dose is tapered. Rapid acting insulin is more easily titratable. Only gave one time additional dose this morning. * ADA & AACE recommend a goal blood sugar range 140-180 mg/dl for the majority of critically ill & non-critically ill patients. However, more stringent targets may be selected in individual cases. Will utilize more stringent goal range of 120-140mg/dl for a well controlled diabetic at baseline. Pt to transfer out of ICU today - may use tighter/lower goal range for non-critically ill patients. 08/05/16 * Severe hyperglycemia yesterday was treated aggressively - hypoglycemic episode ensued and resolved with a snack. * consequently, the patient refused PM Lantus dose --> hyperglycemic this AM * Fasting BSG above goal range secondary to missed basal dose. * Give Lantus 15 units SQ x1 now. * since Solu-Medrol change to PO prednisone today, will decrease PM Lantus to 10 units SQ to avoid hypoglycemia. * Hyperglycemic today pre-lunch. * again, may be due to either steroids and/or missing Lantus last night * will not overcorrect - allow NovoLog to work and re-check BSG with dinner. * Added overnight Accu-check at 02:00 since Lantus dose decreased tonight. PLAN FOR INPATIENT GLYCEMIC CONTROL: * Basal insulin with Lantus 10 units SQ q PM * Lantus 15 units SQ x1 dose now for hyperglycemia and make up for missed dose last night * Correctional Insulin with NOVOLOG per scale AC/HS or Q6hrs while NPO. Additional checks + coverage at 02:00 to compensate if decreased Lantus is not sufficient * Goal Range: Low 120 mg/dL - High 140 mg/dL * Correction Factor: 15 mg/dL/unit * Nutritional / Prandial insulin per carb ratio of 1 unit per 6 grams CHO consume RECOMMENDATIONS FOR DISCHARGE: * May be able to resume home regimen depending on prednisone dose at discharge. * Please note that the plan above was derived based on current level of insulin resistance and hospital stress. These recommendations are appropriate for inpatient admission only. Plan of care upon discharge will need to be reassessed to avoid potential outpatient hypo/hyperglycemia. Thank you.
[2016-08-05] MEDS ORDERED: WARFARIN SOD 2 MG TAB PO SCH (16:00)
[2016-08-05] MEDS: LORAZEPAM 1 MG TAB PO PRN (21:25)
[2016-08-05] MEDS: TAMSULOSIN HCL 0.4 MG CAP PO SCH (21:25)
[2016-08-05] MEDS: PAROXETINE 20 MG TAB PO SCH (21:25)
[2016-08-06] VITALS (15 sets, daily range): BP systolic 99–148; BP diastolic 63–82; PULSE 83–105; TEMP 36.5–36.8; O2SAT 89–98
[2016-08-06] MEDS ORDERED: INSULIN ASPART 100 UNITS/ML 3 ML PEN SC SCH (02:00)
[2016-08-06] MEDS: ALBUT/IPRATROP 3MG/0.5MG NEB 3 ML VIAL INH SCH ×4 (02:11→20:13)
[2016-08-06 05:36] LABS: HEMATOCRIT 29.1 % (42-52); IG% 0.4 %; LYMPH % 9.3 %; LYMPH ABS # 0.51 K/uL (1.2-3.4); MEAN CELL VOLUME 87.4 fL (80-100); MEAN CORPUSCULAR HGB CONC 30.9 g/dl (32-36); MEAN PLATELET VOLUME 9.6 fL (7.4-10.4); MONO % 9.9 %; NEUT % 80.4 %; PLATELET COUNT 166 K/uL (130-400); RED BLOOD COUNT 3.33 M/uL (4.7-6.1); WHITE BLOOD COUNT 5.46 K/uL (4.8-10.8)
[2016-08-06 05:48] LABS: PROTHROMBIN TIME (PATIENT) 21.7 SECONDS (9.0-12.0)
[2016-08-06 06:06] LABS: BUN/CREATININE RATIO 49.6 (10-20); CREATININE 0.83 mg/dl (0.60-1.40); POTASSIUM 4.8 mmol/L (3.5-5.1)
[2016-08-06] MEDS: SUCRALFATE 1 GM/10 ML UDC PO SCH ×4 (06:18→20:35)
[2016-08-06] MEDS: LEVOTHYROXINE 25 MCG TAB PO SCH (06:18)
[2016-08-06 06:21] LABS: COMPLETE YES
[2016-08-06] MEDS: ACETYLCYSTEINE 20% INHAL SOLN ***DISPENSED BY RESP. INH SCH ×2 (07:31→20:13)
[2016-08-06] MEDS: DORNASE ALFA (2500U) 2.5MG/2.5ML INH SCH ×2 (07:31→20:13)
[2016-08-06] MEDS: FUROSEMIDE INJ 20 MG in SYRINGE 0 ML IV SCH ×2 (08:48→17:53)
[2016-08-06] MEDS: DILTIAZEM HCL 30 MG TAB PO SCH ×3 (08:49→20:35)
[2016-08-06] MEDS: PANTOprazole SOD 40 MG TAB PO SCH (08:49)
[2016-08-06] MEDS: GABAPENTIN 300 MG CAP PO SCH ×2 (08:49→20:36)
[2016-08-06] MEDS: CARVEDILOL 25 MG TAB PO SCH ×2 (08:49→20:36)
[2016-08-06] MEDS: SPIRONOLACTONE 25 MG TAB PO SCH (08:49)
[2016-08-06] MEDS: CYANOCOBALAMIN 500 MCG TAB (VIT B-12) PO SCH (08:49)
[2016-08-06] MEDS: INSULIN ASPART 100 UNITS/ML 3 ML PEN SC SCH ×4 (08:52→21:00)
[2016-08-06] MEDS: MoRPHine SULFATE 2 MG/ML CARP IV PRN ×2 (10:05→20:34)
--- NOTE | 2016-08-06 10:24 | Pharmacy Progress Note ---
Glycemic Control: Progress Nt Date of Service Aug 06, 2016. Scope Glycemic Pharmacist consulted by Dr Davison on 07/31/16 for glycemic control and to write orders per [facility] inpatient glycemic control protocol. Objective Accuchecks BSG (last 24hrs): Test 08/05/16 10:52 08/05/16 16:17 08/05/16 16:44 08/05/16 17:13 Bedside Glucose 273 mg/dl (70-99) 62 mg/dl (70-99) 62 mg/dl (70-99) 195 mg/dl (70-99) Test 08/05/16 19:54 08/06/16 01:39 08/06/16 05:14 08/06/16 07:04 Bedside Glucose 204 mg/dl (70-99) 222 mg/dl (70-99) 166 mg/dl (70-99) Random Glucose 168 mg/dl (70-99) Laboratory Data (last 24hrs) Test 08/06/16 05:14 Anion Gap 7.0 mmol/L BUN/Creatinine Ratio 49.6 Blood Urea Nitrogen 41 mg/dl Creatinine 0.83 mg/dl Potassium Level 4.8 mmol/L Sodium Level 142 mmol/L White Blood Count 5.46 K/uL Red Blood Count 3.33 M/uL Hemoglobin 9.0 g/dL Hematocrit 29.1 % Mean Corpuscular Volume 87.4 fL Mean Corpuscular Hemoglobin 27.0 pg Mean Corpuscular Hemoglobin Concent 30.9 g/dl Platelet Count 166 K/uL Mean Platelet Volume 9.6 fL Neutrophils (%) (Auto) 80.4 % Lymphocytes (%) (Auto) 9.3 % Monocytes (%) (Auto) 9.9 % Eosinophils (%) (Auto) 0.0 % Basophils (%) (Auto) 0.0 % Neutrophils # (Auto) 4.39 K/uL Lymphocytes # (Auto) 0.51 K/uL Monocytes # (Auto) 0.54 K/uL Eosinophils # (Auto) 0.00 K/uL Basophils # (Auto) 0.00 K/uL HbA1c: Test 07/30/16 22:04 Hemoglobin A1c 7.6 % (4.5-5.6) H Recent Pertinent Medications Outpatient Anti-diabetic Regimen: * Lantus 24 units SQ q HS * Regular insulin sliding scale * Prednisone 10mg PO daily * A1c = 7.6 % 1/3/17 The patient is currently receiving: * Basal insulin: Lantus 15 units SQ x1 on 6 AM Lantus 10 units SQ q PM * Correctional Insulin: NovoLog Correction per scale AC/HS/ Goal Range: Low 120 mg/dL - High 140 mg/dL Correction Factor: 15 mg/dL/unit * Prandial insulin: Per carb ratio of 1 unit per 6 grams CHO consumed Risk Factors for Insulin Resistance: * Steroids: prednisone 40mg PO daily * IVF: being diuresed * Diet: T2DM/AHA/Low Na - tolerating well per notes Assessment & Plan ASSESSMENT: 08/04/16 * Pt with significant steroid induced hyperglycemia - receiving Solu-Medrol 60mg IV Q8hrs. * Was on IV insulin infusion x ~ 18hrs from 08/02-08/03. Transitioned to SQ basal bolus insulin regimen based on high stress on 08/03 PM * After transitioning to SQ BSGs were as follows: 195, 164, 238, 225, up to 359 prior to lunch today. * Patient has the tendency to snack between meals and CHO not covered w/ insulin d/t nursing not always aware that patient is eating. Pt extremely non- compliant with inpatient diet leading to severe hyperglycemia. * AM fasting BSG was 225mg/dl this morning --> Gave additional 15 units of Lantus x 1 and tightened bolus insulin parameters * Will need to treat severe hyperglycemia prior to lunch * Steroids just tapered; changed from ATC Solu-Medrol to once daily prednisone 40mg starting tomorrow. Should see an improvement with this step down in steroid dosing. * Steroids have their most profound effect on post-prandial hyperglycemia --> aggressive CF/CR warranted * Do not necessarily want to cover steroid induced hyperglycemia with long acting insulin (Lantus) as this may lead to hypoglycemia when steroid dose is tapered. Rapid acting insulin is more easily titratable. Only gave one time additional dose this morning. * ADA & AACE recommend a goal blood sugar range 140-180 mg/dl for the majority of critically ill & non-critically ill patients. However, more stringent targets may be selected in individual cases. Will utilize more stringent goal range of 120-140mg/dl for a well controlled diabetic at baseline. Pt to transfer out of ICU today - may use tighter/lower goal range for non-critically ill patients. 2/6/17 * Severe hyperglycemia yesterday was treated aggressively - hypoglycemic episode ensued and resolved with a snack. * consequently, the patient refused PM Lantus dose --> hyperglycemic this AM * Fasting BSG above goal range secondary to missed basal dose. * Give Lantus 15 units SQ x1 now. * since Solu-Medrol change to PO prednisone today, will decrease PM Lantus to 10 units SQ to avoid hypoglycemia. * Hyperglycemic today pre-lunch. * again, may be due to either steroids and/or missing Lantus last night * will not overcorrect - allow NovoLog to work and re-check BSG with dinner. * Added overnight Accu-check at 02:00 since Lantus dose decreased tonight. 08/06/16 * BSGs less labile yesterday, though did see hypoglycemia pre-dinner * secondary to NovoLog "stacking" with breakfast and lunch doses - "loosen" NovoLog parameters to avoid repeat * Additional Lantus give on 08/05 secondary to refusal of dose on 08/04 and hyperglycemia * normal dose given last evening and BSG today 166mg/dL - no additional basal dose needed at this time * Hypoglycemic event on 08/04 and again on 08/05 * in addition to loosening the NovoLog parameters, will also reduce basal insulin dose (steroids tapered to once daily) PLAN FOR INPATIENT GLYCEMIC CONTROL: * Basal insulin with Lantus 5-10 units SQ q PM * Correctional Insulin with NOVOLOG per scale AC/HS or Q6hrs while NPO. * Goal Range: Low 140 mg/dL - High 180 mg/dL per ADA recommendations * Correction Factor: 30 mg/dL/unit * Nutritional / Prandial insulin per carb ratio of 1 unit per 10 grams CHO consume RECOMMENDATIONS FOR DISCHARGE: * May be able to resume home regimen depending on prednisone dose at discharge. * Please note that the plan above was derived based on current level of insulin resistance and hospital stress. These recommendations are appropriate for inpatient admission only. Plan of care upon discharge will need to be reassessed to avoid potential outpatient hypo/hyperglycemia. Thank you.
[2016-08-06] MEDS: NITROGLYCERIN 0.4 MG SL PER TAB CHARGE SL PRN ×3 (10:30→10:46)
[2016-08-06] MEDS ORDERED: ASPIRIN 81 MG CHEW PO SCH (10:45)
--- NOTE | 2016-08-06 10:52 | DIAGNOSTIC IMAGING REPORT ---
CHEST ONE VIEW PORTABLE CLINICAL HISTORY: Hypoxia. Shortness of breath. COMPARISON STUDY: Chest radiograph August 03, 2016. FINDINGS: A left pleural catheter remains in place. There is a suspected trace left apical pneumothorax. Bibasilar and right perihilar opacities persist. There is interstitial thickening. Cardiomegaly is unchanged. IMPRESSION: 1. Left pleural catheter in place. Suspected small left apical pneumothorax. 2. Pulmonary vascular congestion with suspected mild pleural edema. 3. Persistent bibasilar and right perihilar opacities. Electronically signed by: Moody Stewart M.D. 08/06/2016 10:50 AM Dictated Date/Time: 08/06/2016 10:47 AM
[2016-08-06] MEDS: ALBUTEROL 0.083% NEBU SOLN 3 ML VIAL INH PRN (10:57)
--- NOTE | 2016-08-06 12:46 | Family Medicine Progress Note ---
Progress Note Date of Service Aug 06, 2016. Subjective Pt evaluation today including: conversation w/ patient, physical exam, chart review, lab review The patient was seen and examined at bedside. In the AM pt reports doing well, wants to go home, he is hungry. Patient is resting comfortably in bed with 2LNC. Denies having any pain. Eating and urinating well. Plan of care was described to the patient and all questions were answered. Around 10am I was paged by the nurse regarding pt reporting of crushing chest pain, see critical care progress note. Code status was discussed with Daughter, Edie, at bedside. Patient had full capacity and conversation was witnessed by Edie. If patients heart were to stop he doesn't want any interventions such as CPR, chest compressions or cardioversions. If the patient were to stop breathing he does not want a machine to breath for him, nor does he want to be intubated. In the event of heart stopping patient does not want any intervention and wants to go peacefully. Patient was asked if he wanted time to think about his decision, patient said he did not need more time to think about his decision. Constitutional: No chills, No fever, No sweats Respiratory: No cough, No shortness of breath, No sputum, No wheezing Cardiovascular: No chest pain Objective Physical Exam General Appearance: + obese Respiratory/Chest: chest non-tender, no respiratory distress, no accessory muscle use, + pertinent finding (audible crackling in the posterior lung rodriguez bilaterally, ) Cardiovascular: no edema, no gallop, no JVD, no murmur, + irregularly irregular Abdomen: normal bowel sounds, non tender, soft, no organomegaly Extremities: non-tender, normal inspection, no pedal edema, no calf tenderness Neurologic/Psychiatric: alert, normal mood/affect, oriented x 3 Assessment and Plan 70 year old male presents with acute hypoxic respiratory failure secondary to recurrent bilateral pleural effusions, on background of COPD with 2L O2 at home , poorly controlled DM2, diastolic CHF, and hypothyroidism. Symptoms attributed to acute on chronic CHF. Concurrent management with diuresis, krueger and chest tube drainage. Patient refused Video Speech Swallow on 08/05/16. Acute on chronic hypoxic respiratory failure - Acute worsening today ? due to infection/aspiration. infiltrate noted on CXR - Throat suctioned. - Pul reevaluated patient - Venturi Mask 35% Fi02. - Restarting Abx for HCAP (Vanc, Zosyn and Levoquin) for respirator failure. - Per Pulm, unlikely COPD or infectious process. (cultures negative, pleural fluid negative, blood cultures negative.) - Pt refused Video swallow study to rule out aspiration. - Tapering Prednisone, 20mg last dose on Friday. - Continue Duoneb INH Q4 Scheduled, c/w Symbacort BID and adding Pulmizyme BID. - Chest tube is now placed to suction. - Pt is encouraged to perform incentive spirometry 5x per hour. Acute on Chronic Diastolic CHF - Was improving clinically until episode of chest pain in the AM. Pt is diuresing approximately 450mL per day. - CHF protocols in place: fluid restriction limit to 1.5L, monitor I/O and weight change, assess hydration status. - EKG was taken, showed no ST segment elevation. Repeat chest X-ray today and tomorrow AM. . - c/w IV Lasix 20IV BID and continue to monitor. - c/w Aldactone 25mg daily. - Will trend Troponins x 3 and CKMB x 3. - Cardiology consulted- noted right heart failure on last echo Afib with RVR - Overnight Telemetry showed Afib in the 80s with runs into the 110s. Pt denies any cardiac symptoms. Rate is <100s on exam. - c/w Coreg 25mg BID and diltiazem 30mg TID - c/w Warfarin 2mg daily, monitor PT/INR (2.0 today), will increased dose to 3mg on Friday, and Friday. Neuropathic pain 2/2 DM2 - c/w Gabapentin 300mg BID - He has previously been on significantly higher doses previously, titrate up as necessary. Chronic Right heel ulceration and Left Forearm Skin Tear - Wound care on board. DM2 - Continue Lantus + Aspart sliding scale with AC/HS BSG Recent H/O severe GI bleed requiring blood transfusion - Continue Carafate 1g and Protonix 40mg daily Depression - c/w Paroxetine 20mg daily BPH - c/w tamsulosin 0.4mg daily. DVT Prophylaxis - Warfarin daily. Code status - After extensive discussion with patient and daughter, patient agreed to be DNR/DNI. Resident Involvement: Resident Care Provided Care Provided: Adult [facility] Medicine Reviewed: Pt Seen/Exam by Me History seen during acute worsening with shortness of breath and chest pain\ unable to give much history due to acute distress Constitutional: denies: fever General Appearance: severe distress Respiratory: decreased breath sounds, rhonchi Cardiovascular: irregularly irregular Neurologic/Psychiatric: alert, oriented x 3 Skin Characteristics: warm/dry Assessment/Plan I have reviewed the medical record and performed a history and physical examination of this patient today. I have discussed the case with Dr. Garsia. The above note reflects my findings, conclusions, and recommendations See other note of critical care.
[2016-08-06 12:48] LABS: ARTERIAL BLOOD GAS BASE EXCESS 6.6 mEq/L (-9-1.8); ARTERIAL BLOOD GAS HCO3 34 mmol/L (19-24); ARTERIAL BLOOD GAS PO2 61 mm/Hg (80-95); ARTERIAL BLOOD GAS pH 7.33 (7.35-7.45)
--- NOTE | 2016-08-06 12:48 | PULMONARY CONSULTATION ---
DATE OF CONSULTATION: 08/06/2016 The patient developed tachypnea today along with some hypoxemia and Dr. Garsia has asked me to reevaluate the patient. He previously had been seen by Dr. Heredia and Dr. Beaver, who signed off on the 04 of August. The patient has had a left chest tube placed for a left pleural effusion and initially on the 03 of August removed 500 mL of fluid. It appears to be transudative fluid. Micro so far is unremarkable. Gram stain was unremarkable with a moderate number of inflammatory cells and no organisms noted. The cultures so far are unremarkable. No AFB bacteria were noted. The patient has been relatively stable until he developed some tachypnea today along with a drop in oxygen saturation. He required a 15 liter mask with 100% FIO2 to keep his sat at 90%. Presently he states he is weak. He has a very weak cough as well. He has rhonchi by exam and audible rhonchi when talking to him. He denies chest pain, fevers or night sweats. Has not had any aspiration, although there is a question of aspiration according to the records. He is sitting upright and with a respiratory rate of 20 now and seems comfortable on oxygen mask. He has rather severe chronic obstructive lung disease. He states he has not seen any physicians, generally gets his care in [place]. Had recently been hospitalized there for pneumonia. The patient had an echocardiogram here that revealed an LVEF of about 50-55%, left ventricular diastolic dysfunction, concentric left ventricular hypertrophy, global hypokinesis, moderate tricuspid regurgitation, and elevated right ventricular and right atrial pressures with moderate dilatation of the right atrium and inferior vena cava suggestive of some pulmonary hypertension or fluid overload. He has been diuresed as well. A recent chest x-ray reveals small pneumothorax in the left apex with pulmonary vascular congestion and pulmonary edema as well. He carries a history of respiratory failure with hypercapnia and hypoxemia, severe end-stage COPD, systolic and diastolic heart failure. He had smoked 2 packs a day for 50 years, and also smokes marijuana on a regular basis. From an occupational standpoint, he has not had any industrial exposures. 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 He usually gets his care at the [facility], although I see that Dr. Haynes has evaluated the patient as well during hospitalization. According to the notes, he had been evaluated by Dr. Heredia on the and was much improved with decreased shortness of breath. He has been on CPAP at night with an inspiratory pressure of 12, expiratory pressure of 8, and that is BiPAP, but has been refusing to wear it. He has been treated with Zosyn and Zithromax and has been on steroids. Presently, he is comfortable, just states the shortness of breath worsened done today. According to nurses' notes he developed some shortness of breath last night while getting bathed, but seemed to be fairly stable. MEDICATIONS: His medications are noted. PHYSICAL EXAMINATION: VITAL SIGNS: His blood pressure 123/70 last night, it is 110/70 now, pulse is 90 and regular, respiratory rate 18, oxygen saturation 90% on 15 liters, blood gas is pending. HEENT: Unremarkable. Nose exam unremarkable. Posterior pharynx normal. NECK: No neck vein distention or HJR noted. No adenopathy is noted. Expansion of the thorax is good with deep inspiration. He needed a great deal of help with sitting up. He has significant neuropathy and muscle wasting of the hands and feet. Onychomycosis of the right index finger is noted as well. Radial pulses are good. Expansion of the thorax is fairly good with deep inspiration. No fremitus is noted. HEART: Regular rate and rhythm. His cardiac exam reveals no murmurs or gallops, but the heart sounds are very distant. I thought the second heart sound might be accentuated when evaluated underneath the right clavicle. PMI is not palpable. LUNGS: Reveal some scattered rhonchi bilaterally, particularly at the right base with a few crackles at the right base. ABDOMEN: Soft, nontender. EXTREMITIES: He has no cyanosis, clubbing or edema. He has waffle boots in place and there is no evidence of any clinical DVT. Blood gas is pending. INR is 2, on Coumadin. White count 5.46, hemoglobin 9, hematocrit 29%, platelet count 166,000. CO2 is 33. On the electrolytes, BUN is 41 and that has been stable. Chest x-ray reveals small left apical pneumothorax with an infiltrative process at the right base, and left hemidiaphragm elevation and some air in the GI tract as well. The thoracentesis from the 4th revealed a transudative effusion. Stool has been guaiac negative. All the cultures are unremarkable. IMPRESSION: 1. Respiratory failure with hypercapnia and hypoxemia. This is related to heart failure, small left apical pneumothorax and probable infiltrative process at the right base, but even with a normal white count this could be a pneumonia. 2. Severe chronic obstructive lung disease, but I suspect by his history, it is severe emphysema. 3. Congestive heart failure, systolic. 4. Diabetes mellitus with diabetic neuropathy. RECOMMENDATIONS: 1. At this point, I would continue with good diuresis with Lasix. Continue on the Aldactone and follow with PRP carefully. 2. Reevaluation with Dr. Heredia to see if patient should be put on wall suction. I would recommend putting the chest tube on wall suction with a pneumothorax and his degree of emphysema. 3. Incentive spirometry. Continue on Pulmozyme. 4. I would use the DuoNeb every 4 hours while awake and q. 4 hours p.r.n. and add on Symbicort 160/4.5 two puffs b.i.d. I think while on Pulmozyme the Mucomyst can be discontinued. Repeat the chest x-ray again this afternoon and tomorrow morning to assess for the pneumothorax. He should be continued on his present medications. We should attempt to get a sputum for Gram stain, C\T\S and because of the increase in hypoxemia I would add on some antimicrobial agents including vancomycin, Zosyn and Levaquin to cover hospital-acquired pneumonia. I will continue to follow along with you during his hospital stay.
[2016-08-06 12:49] LABS: ALLEN TEST POSITIVE (POS); O2 ADMINISTRATION 12.5 LITERS
--- NOTE | 2016-08-06 12:55 | Critical Care Progress Note ---
Critical Care Progress Note Date of Service Aug 06, 2016. Attending Dr. Haynes Subjective 10:00am Pt started complaining of non radiating crushing chest pain. He also reported that his jaw was weak and he wasn't feeling too well. Patient's oxygen saturation was in the low 80s on nasal canula. On physical exam patient' s lungs had rhonchi and rales in the posterior lung rodriguez bilaterally. Patient also had upper airway obstruction and suction in the upper airway was performed. Patient received a stat EKG, Nitroglycerin x2, Full dose Aspirin and Chest X- ray and was given an oxygen mask. His saturation improved to >90% almost immediately while on the mask. After oxygen treatment patient reported slight improvement in his chest pain. 10:30am Patient received a stat X-ray. Troponins, CKMB and an ABG was drawn. Dr. Shrestha (pulmonology) was consulted. Troponin was 0.03 and will be repeated [id number]. ABG - results reviewed. He had lot of upper airway sounds due to secretions and phlegm which he wasn't able to cough up. Ordered to suction and it helped him symptomatically. 11:00am Repeat EKG was ordered. At this point the patient reported his chest pain symptoms had dissipated. 11:30 Dr Shrestha (pulmonology) reviewed the imaging and chart and saw the patient. Changes to the management plan included Venturi Mastk @35% Fi02, Duonebs Q4 Scheduled and Symbacort BID). We can continued to diurese the patient with Lasix. Objective General Appearance: no apparent distress, uncomfortable Head: normocephalic, atraumatic Eyes: PERRLA, EOMI Neck: normal range of motion, no tenderness, trachea midline, no stridor Respiratory: rales, rhonchi slightly improved from yesterday Cardiovasular: irregular rate Chest: Pleural drain in left chest draining yellow fluid Abdomen: non tender, normal bowel sounds, no rebound, no masses Neuro: alert, oriented x 3 Assessment & Plan Please refer to family medicine progress note for detailed A/P. I was physically present for 1 hr of critical care time of patient care with the Dr. Garsia Data Medications: Current Inpatient Medications Medications (Trade) Dose Ordered Sig/Sujatha Route Start Time Stop Time Status Last Admin Dose Admin Acetaminophen (Tylenol Tab) 650 mg Q4H PRN PO 07/31/16 01:15 08/30/16 01:14 Al Hydrox/Mg Hydrox/Simethicone (Maalox Max Susp) 15 ml Q4H PRN PO 07/31/16 01:15 08/30/16 01:14 Ondansetron HCl (Zofran Inj) 4 mg Q6H PRN IV 07/31/16 01:15 08/30/16 01:14 Nitroglycerin (Nitrostat Tab) 0.4 mg UD PRN SL 07/31/16 01:15 08/30/16 01:14 08/06/16 10:46 0.4 MG Morphine Sulfate (MoRPHine SULFATE INJ) 2 mg Q30M PRN IV 07/31/16 01:15 08/14/16 01:14 08/06/16 10:05 2 MG Bisacodyl (Dulcolax Supp) 5 mg PRN PRN IA 07/31/16 01:30 08/30/16 01:29 07/31/16 20:24 5 MG Cyanocobalamin (Vitamin B-12 Tab) 500 mcg DAILY PO 07/31/16 09:00 08/30/16 08:59 08/06/16 08:49 500 MCG Levothyroxine Sodium (Synthroid Tab) 25 mcg DAILYBB PO 07/31/16 06:00 08/30/16 05:59 08/06/16 06:18 25 MCG Magnesium Hydroxide (Milk Of Magnesia Susp) 30 ml HS PRN PO 07/31/16 01:30 08/30/16 01:29 08/03/16 18:47 30 ML Paroxetine HCl (pAXil TAB) 20 mg HS PO 07/31/16 21:00 08/30/16 20:59 08/05/16 21:25 20 MG Sodium Biphosphate/ Sodium Phosphate (Fleet Enema) 1 ml DAILY PRN IA 07/31/16 01:30 08/30/16 01:29 Sucralfate (Carafate Susp) 1 gm ACHS PO 07/31/16 07:00 08/30/16 06:59 08/06/16 06:18 1 GM Tamsulosin HCl (Flomax Cap) 0.4 mg HS PO 07/31/16 21:00 08/30/16 20:59 08/05/16 21:25 0.4 MG Miscellaneous Information (Consult Glycemic Management Pharmacy) 1 ea UD PRN N/A 07/31/16 02:39 08/30/16 02:38 Miconazole Nitrate (Desenex Powder) 1 appln PRN PRN EXT 07/31/16 11:45 08/30/16 11:44 07/31/16 22:00 1 APPLN Pantoprazole Sodium (Protonix Tab) 40 mg QAM PO 08/01/16 09:00 08/31/16 08:59 08/06/16 08:49 40 MG Gabapentin (Neurontin Cap) 300 mg BID PO 07/31/16 21:00 08/30/16 20:59 08/06/16 08:49 300 MG Zolpidem Tartrate (Ambien Tab) 5 mg HS PRN PO 08/01/16 00:00 08/31/16 00:00 08/02/16 23:47 5 MG Albuterol Sulfate (Ventolin 0.083% 2.5MG/3ML Neb) 2.5 mg Q4H PRN INH 08/01/16 13:30 08/31/16 13:29 08/06/16 10:57 2.5 MG Lorazepam (Ativan Tab) 0.5 mg Q6 PRN PO 08/01/16 12:15 08/31/16 12:14 08/03/16 10:36 0.5 MG Acetylcysteine (Mucomyst 20% Inh Soln) 3 ml BIDR INH 08/01/16 20:00 08/31/16 19:59 08/06/16 07:31 3 ML Dornase Alan 2.5 ml 2.5 ml BIDR INH 08/02/16 20:00 09/01/16 19:59 08/06/16 07:31 2.5 ML Furosemide/Syringe (Lasix Inj/ Syringe) 2 ml @ 4 mls/min BID17 IV 08/02/16 17:30 09/01/16 17:29 Future hold 08/06/16 08:48 4 MLS/MIN Glucose (Glucose 40% Gel) UD PRN PO 08/02/16 22:15 09/01/16 22:14 Glucose (Glucose Chew Tab) 1 tabs UD PRN PO 08/02/16 22:15 09/01/16 22:14 Dextrose (Dextrose 50% 50ML Syringe) 50 ml UD PRN IV 08/02/16 22:15 09/01/16 22:14 Glucagon (Glucagon Inj) 1 mg UD PRN SQ 08/02/16 22:15 09/01/16 22:14 Carvedilol (Coreg Tab) 25 mg BID PO 08/03/16 09:00 09/02/16 08:59 08/06/16 08:49 25 MG Spironolactone (Aldactone Tab) 25 mg QAM PO 08/03/16 09:00 09/02/16 08:59 08/06/16 08:49 25 MG Docusate Sodium (coLACE CAP) 100 mg BID PRN PO 08/03/16 08:30 09/02/16 08:29 08/03/16 18:47 100 MG Lorazepam (Ativan Tab) 1 mg BID PRN PO 08/03/16 08:30 09/02/16 08:29 08/05/16 21:25 1 MG Insulin Aspart (novoLOG ASPART) SLIDING SCALE G... ACHS SC 08/03/16 16:00 09/02/16 15:59 08/06/16 12:23 2 UNITS Diltiazem HCl (Cardizem Tab) 30 mg TID PO 08/04/16 21:00 09/03/16 20:59 08/06/16 08:49 30 MG Warfarin Sodium (Coumadin Tab) 3 mg TuThSa@1600 PO 08/06/16 16:00 09/05/16 15:59 Warfarin Sodium (Coumadin Tab) 2 mg SuMoWeFr@1600 PO 08/07/16 16:00 09/06/16 15:59 Insulin Glargine (Lantus Solostar Pen) SEE PROTOCOL HS SC 08/06/16 21:00 09/04/16 20:59 Albuterol/ Ipratropium (Duoneb) 3 ml Q4HWA INH 08/06/16 16:00 09/05/16 15:59 UNV I & O: 24-Hour Column 08/06/16 07:59 Intake Total 960 ml Output Total 1640 ml Balance -680 ml Vital Signs: Date Time Temp Pulse Resp B/P Pulse Ox O2 Delivery O2 Flow Rate FiO2 08/06/16 12:00 Humidified Air 15.0 Mask 08/06/16 11:55 36.6 95 20 148/74 98 Room Air 08/06/16 10:57 103 18 90 Mask 15.0 100 08/06/16 10:46 99/64 08/06/16 10:40 113/67 08/06/16 10:30 138/74 08/06/16 08:00 Nasal Cannula 2.0 08/06/16 07:57 36.6 90 20 110/70 97 08/06/16 07:32 89 18 96 Nasal Cannula 2.0 08/06/16 04:05 Nasal Cannula 2.0 08/06/16 03:32 36.5 105 23 133/82 92 Nasal Cannula 2.0 08/06/16 02:11 84 18 95 Nasal Cannula 2.0 08/06/16 00:10 Nasal Cannula 2.0 08/05/16 23:04 36.4 92 20 123/70 94 Nasal Cannula 2.0 08/05/16 20:15 Nasal Cannula 2.0 08/05/16 19:23 86 18 94 Nasal Cannula 2.0 08/05/16 19:02 36.5 96 18 127/71 93 Nasal Cannula 2.0 08/05/16 16:00 96 Nasal Cannula 2.0 Mask 08/05/16 15:38 36.3 83 20 118/62 95 Nasal Cannula 2.0 08/05/16 14:08 83 18 94 Nasal Cannula 2.0 Laboratory Results: Last 24 Hours Test 08/05/16 16:17 08/05/16 16:44 08/05/16 17:13 08/05/16 19:54 Bedside Glucose 62 mg/dl 62 mg/dl 195 mg/dl 204 mg/dl Test 08/06/16 01:39 08/06/16 05:14 08/06/16 07:04 08/06/16 10:24 Bedside Glucose 222 mg/dl 166 mg/dl White Blood Count 5.46 K/uL Red Blood Count 3.33 M/uL Hemoglobin 9.0 g/dL Hematocrit 29.1 % Mean Corpuscular Volume 87.4 fL Mean Corpuscular Hemoglobin 27.0 pg Mean Corpuscular Hemoglobin Concent 30.9 g/dl Platelet Count 166 K/uL Mean Platelet Volume 9.6 fL Neutrophils (%) (Auto) 80.4 % Lymphocytes (%) (Auto) 9.3 % Monocytes (%) (Auto) 9.9 % Eosinophils (%) (Auto) 0.0 % Basophils (%) (Auto) 0.0 % Neutrophils # (Auto) 4.39 K/uL Lymphocytes # (Auto) 0.51 K/uL Monocytes # (Auto) 0.54 K/uL Eosinophils # (Auto) 0.00 K/uL Basophils # (Auto) 0.00 K/uL RDW Standard Deviation 50.5 fL RDW Coefficient of Variation 15.5 % Immature Granulocyte % (Auto) 0.4 % Immature Granulocyte # (Auto) 0.02 K/uL Nucleated RBC Absolute Count (auto) 0.07 K/uL Nucleated Red Blood Cells % 1.3 % Red Blood Cell Morphology Unremarkable Prothrombin Time 21.7 SECONDS Prothromb Time International Ratio 2.0 Sodium Level 142 mmol/L Potassium Level 4.8 mmol/L Chloride Level 102 mmol/L Carbon Dioxide Level 33 mmol/L Anion Gap 7.0 mmol/L Blood Urea Nitrogen 41 mg/dl Creatinine 0.83 mg/dl Est Creatinine Clear Calc Drug Dose 97.3 ml/min Estimated GFR () 101.9 Estimated GFR (Non- 87.9 BUN/Creatinine Ratio 49.6 Random Glucose 168 mg/dl Calcium Level 8.0 mg/dl Creatine Kinase MB Ratio Test 08/06/16 10:55 08/06/16 11:25 08/06/16 12:25 Creatine Kinase MB 4.2 ng/ml Troponin I 0.030 ng/ml Bedside Glucose 108 mg/dl Resident Involvement: Resident Care Provided Care Provided: Adult Hospital Medicine
[2016-08-06] MEDS: WARFARIN SOD 3 MG TAB PO SCH (16:34)
[2016-08-06] MEDS ORDERED: LEVOFLOXACIN / D5W 750 MG in PREMIXED IN D5W 150 ML IV SCH (17:00)
[2016-08-06] MEDS ORDERED: PIPERACILL/TAZOBAC IV 4.5 GM in DEXTROSE 5% 100ML 100 ML IV SCH (17:00)
[2016-08-06] MEDS ORDERED: VANCOMYCIN INJ 0 MG in SODIUM CHLORIDE 0.9% 500ML 500 ML IV SCH (17:00)
[2016-08-06] MEDS ORDERED: VANCOMYCIN CONSULT ACTIVE PRN (17:30)
[2016-08-06] MEDS ORDERED: PIPERACILL/TAZOBAC CONSULT ACTIVE PRN (17:30)
[2016-08-06] MEDS ORDERED: VANCOMYCIN INJ 2,500 MG in SODIUM CHLORIDE 0.9% 500ML 500 ML IV ONE (18:00)
[2016-08-06] MEDS ORDERED: PIPERACILL/TAZOBAC IV 3.375 GM in DEXTROSE 5% 100ML IV ONE (18:00)
[2016-08-06] MEDS: LEVOFLOXACIN 750MG / D5W IV SCH (18:34)
--- NOTE | 2016-08-06 20:08 | DIAGNOSTIC IMAGING REPORT ---
CHEST ONE VIEW PORTABLE CLINICAL HISTORY: cough, SOB dyspnea COMPARISON STUDY: 08/06/2016 FINDINGS: Mild increase in pulmonary vascularity compared to the prior exam. Persistent infiltrative change right base. Left basilar drainage catheter similar in position. Slight blunting lateral calcific angles bilaterally. Unchanging mediastinal fullness. IMPRESSION: Mildly progressive infiltrative change right base. Stable components of congestive failure. Electronically signed by: Kaleb Saldaña M.D. 08/06/2016 8:07 PM Dictated Date/Time: 08/06/2016 8:06 PM
[2016-08-06] MEDS ORDERED: FUROSEMIDE 40 MG/4 ML VIAL ONE (20:30)
[2016-08-06] MEDS: BUDESONIDE/FORMOTEROL FUMARATE 160/4.5 60 PUFFS/INHALER INH SCH (20:33)
[2016-08-06] MEDS: LORAZEPAM 1 MG TAB PO PRN (20:33)
[2016-08-06] MEDS: ACETAMINOPHEN 325 MG TAB PO PRN (20:34)
[2016-08-06] MEDS: TAMSULOSIN HCL 0.4 MG CAP PO SCH (20:36)
[2016-08-06] MEDS: PAROXETINE 20 MG TAB PO SCH (20:36)
--- NOTE | 2016-08-06 20:42 | Pharmacy Progress Note ---
Pharmacy Antibiotic Consult Date of Service: Aug 06, 2016. Pharmacy Dosing Scope Pharmacy is consulted to initiate Vanco/Zosyn IV dosing therapy, order appropriate labs and adjust drug dose/frequency. Subjective The patient is a 71 year old male admitted on Jul 31, 2016 at 01:16. Objective Height (Feet): 6 Height (Inches): 0.00 Weight (Kilograms): 98.700 Lab Results (24hrs): Item Value Date Time Creatinine 0.83 mg/dl 08/06/16 0514 Est Creatinine Clear Calc Drug Dose 97.3 ml/min 08/06/16 0514 Laboratory Tests Test 08/06/16 05:14 BUN/Creatinine Ratio 49.6 Blood Urea Nitrogen 41 mg/dl Creatinine 0.83 mg/dl White Blood Count 5.46 K/uL Red Blood Count 3.33 M/uL Hemoglobin 9.0 g/dL Hematocrit 29.1 % Mean Corpuscular Volume 87.4 fL Mean Corpuscular Hemoglobin 27.0 pg Mean Corpuscular Hemoglobin Concent 30.9 g/dl Platelet Count 166 K/uL Mean Platelet Volume 9.6 fL Neutrophils (%) (Auto) 80.4 % Lymphocytes (%) (Auto) 9.3 % Monocytes (%) (Auto) 9.9 % Eosinophils (%) (Auto) 0.0 % Basophils (%) (Auto) 0.0 % Neutrophils # (Auto) 4.39 K/uL Lymphocytes # (Auto) 0.51 K/uL Monocytes # (Auto) 0.54 K/uL Eosinophils # (Auto) 0.00 K/uL Basophils # (Auto) 0.00 K/uL Micro Results: Item Value Date Time Blood Urea Nitrogen 41 mg/dl H 08/06/16 0514 MRSA DNA Surveillance Screen - Final Complete 08/06/16 1800 Nasal Specimen Negative for MRSA by DNA Probe Acid Fast Stain - Final Resulted 08/03/16 0000 Pleural Fluid (Thoracentesis) Left Gram Stain - Final Resulted 08/03/16 0000 Pleural Fluid (Thoracentesis) Left MRSA DNA Surveillance Screen - Final Complete 07/31/16 0241 Nasal Specimen Negative for MRSA by DNA Probe Blood Culture - Final Complete 07/30/16 2215 Blood NO GROWTH Blood Culture - Final Complete 07/30/16 2204 Blood NO GROWTH Assessment & Plan Pt is a 71yo M being empirically treated for HAP w/ Vanco/Zosyn/LVQ. Mr. Carranza ' renal fxn look to be close to his baseline. Pt population p'kinetics: t1/2= 8.2hrs, ke=0.0849. WBC and ANC are WNL. Pt is tachycardic, afebrile, RR WNL. Prior c/s's all yield NGTD. I have ordered a repeat MRSA Nasal swab to help r/o MRSA PNA. Vanco: * Loading dose: Vanco 2500mg (25mg/kg) IV X 1 dose at 1800 then: * Vanco 1500mg (15mg/kg) IV every 10 hours starting at 0000 on 08/07. * Goal trough level estimate: between 15 - 20 mcg/mL. * Trough has been ordered for: prior to the third dose at 2000. Zosyn: * Pt received LD of 30 min infsn of Zosyn 3.375g X1 at 1800 * Set to receive EI Zosyn 3.375g Q8, appropriate for clinical status and eCrCL> 20cc/min Levaquin: * Not consulted however appropriately adjusted for eCrCl>50cc/min Thank you for consulting the pharmacy kinetic team and including us in the care of Mr. Carranza. Pharmacy will continue to follow and will adjust dose/frequency as necessary. Thank you
[2016-08-06] MEDS ORDERED: DORNASE ALFA (2500U) 2.5MG/2.5ML INH SCH (21:00)
[2016-08-06] MEDS: INSULIN GLARGINE SOLOSTAR 100 UNITS/ML 3 ML PEN SC SCH (21:00)
[2016-08-06] MEDS ORDERED: FUROSEMIDE INJ 20 MG in SYRINGE 0 ML IV ONE (21:30)
[2016-08-07] VITALS (12 sets, daily range): BP systolic 102–144; BP diastolic 57–81; PULSE 62–103; TEMP 36.4–36.8; O2SAT 91–97; BMI 29.9
[2016-08-07] MEDS ORDERED: SODIUM CHLORIDE 0.9% IV SCH ×2
[2016-08-07] MEDS ORDERED: VANCOMYCIN IV SCH ×2
[2016-08-07] MEDS ORDERED: VANCOMYCIN INJ 1,500 MG in SODIUM CHLORIDE 0.9% 500ML 500 ML IV SCH ×2
[2016-08-07 05:15] LABS: IG% 0.6 %; LYMPH % 5.6 %; LYMPH ABS # 0.27 K/uL (1.2-3.4); MEAN CELL VOLUME 85.8 fL (80-100); MEAN CORPUSCULAR HEMOGLOBIN 26.7 pg (25-34); MEAN CORPUSCULAR HGB CONC 31.2 g/dl (32-36); MEAN PLATELET VOLUME 9.3 fL (7.4-10.4); MONO % 7.5 %; NEUT % 86.3 %; PLATELET COUNT 147 K/uL (130-400); RED BLOOD COUNT 3.03 M/uL (4.7-6.1); WHITE BLOOD COUNT 4.83 K/uL (4.8-10.8)
[2016-08-07 05:23] LABS: INR 2.1 (0.9-1.1); PROTHROMBIN TIME (PATIENT) 22.8 SECONDS (9.0-12.0)
[2016-08-07 05:35] LABS: BUN/CREATININE RATIO 46.5 (10-20); CALCIUM 7.6 mg/dl (8.5-10.1); CREATININE 0.88 mg/dl (0.60-1.40); POTASSIUM 4.9 mmol/L (3.5-5.1)
[2016-08-07 05:41] LABS: COMPLETE YES
[2016-08-07] MEDS: LEVOTHYROXINE 25 MCG TAB PO SCH (06:02)
[2016-08-07] MEDS: SUCRALFATE 1 GM/10 ML UDC PO SCH ×4 (06:02→22:16)
--- NOTE | 2016-08-07 07:04 | PULMONARY PROGRESS NOTE ---
DATE: 08/07/2016 HISTORY OF PRESENT ILLNESS: The patient is comfortable this morning, sleep on his right side and states he is better. He has not had any cough or chest discomfort and slept fairly well. According to the nurses, it appears he had a fairly stable night last night. Chest tube was draining appropriately. Denied any pain or shortness of breath at midnight. Chest tube was at 20 cm of water suction. He has been encouraged to use the incentive spirometry and I talked with him about that this morning. PHYSICAL EXAMINATION: VITAL SIGNS: Stable. His blood pressure 106/71, pulse 90 and regular, respiratory rate 20, oxygen saturation 93% on 5 liters now and he is afebrile. I\T\O is 2036 in and 2260 out. Weight 100.1 kilograms last night at midnight. Chest tubes drained out 320 mL since yesterday. HEENT: Unremarkable. NECK: There is no neck vein distention or HJR. HEART: Has a regular rate and rhythm. Second heart sound was somewhat accentuated. LUNGS: Reveals scattered rhonchi bilaterally, but no crackles or rales noted. A few crackles at the right base posteriorly noted. There is no fremitus or dullness to percussion. No subcutaneous emphysema is noted. ABDOMEN: Soft, nontender. EXTREMITIES: He has no cyanosis, clubbing or edema. LABORATORY DATA: The laboratory work is pending for this morning, although the hemoglobin was 8.1, hematocrit 26%. CO2 was 35 on the electrolytes. Troponin is unremarkable. Blood gas yesterday revealed pH 7.33, pCO2 of 66, and pO2 of 61. MRSA DNA surveillance screen is negative. IMPRESSION: 1. Respiratory failure with hypercapnia, hypoxemia related to chronic obstructive pulmonary disease, small pneumothorax, left side. 2. Chronic obstructive pulmonary disease with exacerbation. 3. Congestive heart failure. 4. Right lower lobe pneumonia. RECOMMENDATIONS: 1. Continue his present medications and I will need to follow up with a chest x-ray which should be done daily for the next several days. 2. I would consider placing the patient on BIPAP at night to an inspiratory pressure of 14, expiratory pressure of 5, and an ST rate of 10. That will help with the hypercapnia and keep him stable at night. Overall, today he appears to be stable. We are waiting the chest x-ray report from this morning.
[2016-08-07] MEDS: ACETYLCYSTEINE 20% INHAL SOLN ***DISPENSED BY RESP. INH SCH ×2 (07:06→18:45)
[2016-08-07] MEDS: ALBUT/IPRATROP 3MG/0.5MG NEB 3 ML VIAL INH SCH ×4 (07:06→18:12)
[2016-08-07] MEDS: DORNASE ALFA (2500U) 2.5MG/2.5ML INH SCH ×2 (07:06→18:45)
[2016-08-07] MEDS: PIPERACILL/TAZOBAC IV 3.375 GM in DEXTROSE 5% 100ML IV SCH ×5 (07:43→23:51)
[2016-08-07] MEDS: CARVEDILOL 25 MG TAB PO SCH ×2 (07:44→22:15)
[2016-08-07] MEDS: CYANOCOBALAMIN 500 MCG TAB (VIT B-12) PO SCH (07:44)
[2016-08-07] MEDS: FUROSEMIDE INJ 20 MG in SYRINGE 0 ML IV SCH ×2 (07:44→16:42)
[2016-08-07] MEDS: BUDESONIDE/FORMOTEROL FUMARATE 160/4.5 60 PUFFS/INHALER INH SCH ×2 (07:44→22:16)
[2016-08-07] MEDS: DILTIAZEM HCL 30 MG TAB PO SCH ×3 (07:45→22:15)
[2016-08-07] MEDS: PANTOprazole SOD 40 MG TAB PO SCH (07:45)
[2016-08-07] MEDS: GABAPENTIN 300 MG CAP PO SCH ×2 (07:45→22:15)
[2016-08-07] MEDS: SPIRONOLACTONE 25 MG TAB PO SCH (07:46)
[2016-08-07] MEDS: INSULIN ASPART 100 UNITS/ML 3 ML PEN SC SCH ×4 (07:50→22:20)
[2016-08-07] MEDS ORDERED: INSULIN GLARGINE SOLOSTAR 100 UNITS/ML 3 ML PEN SC SCH (08:15)
--- NOTE | 2016-08-07 08:33 | DIAGNOSTIC IMAGING REPORT ---
CHEST ONE VIEW PORTABLE CLINICAL HISTORY: Cough. Chest pain. COMPARISON STUDY: Chest radiograph every 2016. FINDINGS: A left pleural pigtail catheter remains in place. The patient is rotated. This accentuates mediastinal widening. Diffuse interstitial thickening with bilateral airspace opacities, greater on the right, are noted. There are small bilateral pleural effusions. No pneumothorax is identified. IMPRESSION: 1. Left pleural catheter in place. No pneumothorax identified. 2. Small bilateral pleural effusions. 3. Persistent airspace opacities and interstitial thickening, greater within the right lung. Electronically signed by: Moody Stewart M.D. 08/07/2016 8:32 AM Dictated Date/Time: 08/07/2016 8:29 AM
--- NOTE | 2016-08-07 10:13 | Family Medicine Progress Note ---
Progress Note Date of Service Aug 07, 2016. Subjective The patient was seen and examined at bedside. Patient received a 40mg IV bolus of Lasix overnight. Telemetry showed Afib in the 70s-80s overnight. Patient is resting comfortably in bed. Awoken from sleep during exam. Patient was informed that his X-ray results showed some consolidation and he is was already started on Abx yesterday. Denies having any pain. Eating and urinating well. Patient wants to go home. Plan of care was described to the patient and all questions were answered. Constitutional: No chills, No fever Respiratory: No cough, No shortness of breath, No wheezing Cardiovascular: No chest pain Abdomen: No pain Male : No dysuria Objective Physical Exam General Appearance: WD/WN, no apparent distress, + obese Respiratory/Chest: + pertinent finding (Lungs sounds are diminished, rhonchorous in all lung rodriguez, slight improvement from previous day. ) Cardiovascular: no edema, no gallop, no JVD, no murmur, + irregularly irregular Abdomen: normal bowel sounds, non tender, soft Extremities: + pertinent finding (Patient is poor gross motor control over his hands, unchanged from previous day. ) Neurologic/Psychiatric: alert, normal mood/affect, oriented x 3 Skin: normal color, warm/dry, no rash Assessment and Plan 70 year old male presents with acute hypoxic respiratory failure secondary to recurrent bilateral pleural effusions, on background of COPD with 2L O2 at home , poorly controlled DM2, diastolic CHF, and hypothyroidism. Symptoms attributed to acute on chronic CHF. Concurrent management with diuresis, krueger and chest tube drainage. Patient refused Video Speech Swallow on 08/05/16. On 08/06/16 overnight patient received an IV bolus of 40mg lasix. Acute on Chronic hypoxic respiratory failure - Patient is clinically stable today. Acute worsening yesterday - sec to ? infection/aspiration. Received 40mg IV dose of Lasix overnight. Patient is back on 3LNC. Chest tube is placed now to suction. Patient is using the incentive spirometer. Patient has completed his dose of Prednisone. - Pt refused Video swallow study to rule out aspiration. - Per pulmonary's recommendation patient will be placed on Bipap tonight with expiratory pressure of 5, inspiratory pressure of [address] rate of 10. - Will follow with daily X-rays. - c/w Abx for HCAP (Zosyn and Levoquin) for respiratory failure. - c/w Duoneb INH Q4 Scheduled, c/w Symbacort BID and adding Pulmizyme BID. Acute on Chronic Diastolic CHF - No episodes of crushing chest pain in 24 hours. Troponins did not spike from the episode of crushing chest pain on 08/06/16. - CHF protocols in place: fluid restriction limit to 1.5L, monitor I/O and weight change, assess hydration status. - Cardiology consulted- continue present management, consider additional diuresis. - c/w IV Lasix 20IV BID and continue to monitor. - c/w Aldactone 25mg daily. New Onset Anemia - Hemoglobin went from 9-->8 this AM. Unknown source of blood loss. Pt has not had a BM in 48 hours. May be hemodilution from family providing hydration. - Continue to monitor. - f/u FOBT. Large left pleural effusion -s/p tube thoracostomy 08/03/16. pigtail catheter in place Afib with RVR - Overnight Telemetry showed Afib in the 70s-80s. - INR today of 2.1. - c/w Coreg 25mg BID and diltiazem 30mg TID - c/w Warfarin 2mg ,,,Fri and 3mg on , , Sat. Neuropathic pain 2/2 DM2 - c/w Gabapentin 300mg BID - He has previously been on significantly higher doses previously, titrate up as necessary. Chronic Right heel ulceration and Left Forearm Skin Tear - Wound care on board. DM2 - c/w Lantus + Aspart sliding scale with AC/HS BSG Recent H/O severe GI bleed requiring blood transfusion - Continue Carafate 1g and Protonix 40mg daily Depression - c/w Paroxetine 20mg daily BPH - c/w tamsulosin 0.4mg daily. DVT Prophylaxis - Warfarin daily. Code status - After extensive discussion with patient and daughter, patient agreed to be DNR/DNI. Resident Involvement: Resident Care Provided Care Provided: Adult Hospital Medicine Reviewed: Pt Seen/Exam by Me History breathing better today feeling restless and anxious and wants to go home Constitutional: denies: fever Respiratory: positive: short of breath (much better though) Cardiovascular: denies chest pain Gastrointestinal/Abdominal: negative: abdominal pain General Appearance: mild distress Respiratory: decreased breath sounds, crackles, other (chest tube in place - left) Cardiovascular: irregularly irregular Neurologic/Psychiatric: alert, oriented x 3 Skin Characteristics: warm/dry Assessment/Plan I have reviewed the medical record and performed a history and physical examination of this patient today. I have discussed the case with Dr. aGrsia. The above note reflects my findings, conclusions, and recommendations
--- NOTE | 2016-08-07 11:21 | Pharmacy Progress Note ---
Glycemic Control: Progress Nt Date of Service Aug 07, 2016. Scope Glycemic Pharmacist consulted by Dr Davison on 07/31/16 for glycemic control and to write orders per [facility] inpatient glycemic control protocol. Objective Accuchecks BSG (last 24hrs): Test 08/06/16 11:25 08/06/16 16:13 08/06/16 20:27 08/07/16 04:54 Bedside Glucose 108 mg/dl (70-99) 219 mg/dl (70-99) 313 mg/dl (70-99) Random Glucose 262 mg/dl (70-99) Test 08/07/16 06:44 08/07/16 10:41 Bedside Glucose 295 mg/dl (70-99) 319 mg/dl (70-99) Laboratory Data (last 24hrs) Test 08/07/16 04:54 Anion Gap 5.0 mmol/L BUN/Creatinine Ratio 46.5 Blood Urea Nitrogen 41 mg/dl Creatinine 0.88 mg/dl Potassium Level 4.9 mmol/L Sodium Level 138 mmol/L White Blood Count 4.83 K/uL Red Blood Count 3.03 M/uL Hemoglobin 8.1 g/dL Hematocrit 26.0 % Mean Corpuscular Volume 85.8 fL Mean Corpuscular Hemoglobin 26.7 pg Mean Corpuscular Hemoglobin Concent 31.2 g/dl Platelet Count 147 K/uL Mean Platelet Volume 9.3 fL Neutrophils (%) (Auto) 86.3 % Lymphocytes (%) (Auto) 5.6 % Monocytes (%) (Auto) 7.5 % Eosinophils (%) (Auto) 0.0 % Basophils (%) (Auto) 0.0 % Neutrophils # (Auto) 4.17 K/uL Lymphocytes # (Auto) 0.27 K/uL Monocytes # (Auto) 0.36 K/uL Eosinophils # (Auto) 0.00 K/uL Basophils # (Auto) 0.00 K/uL HbA1c: Test 07/30/16 22:04 Hemoglobin A1c 7.6 % (4.5-5.6) H Recent Pertinent Medications Outpatient Anti-diabetic Regimen: * Lantus 24 units SQ q HS * Regular insulin sliding scale * Prednisone 10mg PO daily * A1c = 7.6 % 07/02/16 The patient is currently receiving: * Basal insulin: Lantus 10 units SQ q PM * Correctional Insulin: NovoLog Correction per scale AC/HS Goal Range: Low 140 mg/dL - High 180 mg/dL Correction Factor: 30 mg/dL/unit * Prandial insulin: Per carb ratio of 1 unit per 10 grams CHO consumed Risk Factors for Insulin Resistance: * Steroids: prednisone 40mg PO daily --> discontinued this morning * IVF: being diuresed * Infection: levofloxacin and piperacillin/tazobactam * Diet: T2DM/AHA/Low Na - tolerating well per notes Assessment & Plan ASSESSMENT: 08/04/16 * Pt with significant steroid induced hyperglycemia - receiving Solu-Medrol 60mg IV Q8hrs. * Was on IV insulin infusion x ~ 18hrs from 08/02-08/03. Transitioned to SQ basal bolus insulin regimen based on high stress on 08/03 PM * After transitioning to SQ BSGs were as follows: 195, 164, 238, 225, up to 359 prior to lunch today. * Patient has the tendency to snack between meals and CHO not covered w/ insulin d/t nursing not always aware that patient is eating. Pt extremely non- compliant with inpatient diet leading to severe hyperglycemia. * AM fasting BSG was 225mg/dl this morning --> Gave additional 15 units of Lantus x 1 and tightened bolus insulin parameters * Will need to treat severe hyperglycemia prior to lunch * Steroids just tapered; changed from ATC Solu-Medrol to once daily prednisone 40mg starting tomorrow. Should see an improvement with this step down in steroid dosing. * Steroids have their most profound effect on post-prandial hyperglycemia --> aggressive CF/CR warranted * Do not necessarily want to cover steroid induced hyperglycemia with long acting insulin (Lantus) as this may lead to hypoglycemia when steroid dose is tapered. Rapid acting insulin is more easily titratable. Only gave one time additional dose this morning. * ADA & AACE recommend a goal blood sugar range 140-180 mg/dl for the majority of critically ill & non-critically ill patients. However, more stringent targets may be selected in individual cases. Will utilize more stringent goal range of 120-140mg/dl for a well controlled diabetic at baseline. Pt to transfer out of ICU today - may use tighter/lower goal range for non-critically ill patients. 08/05/16 * Severe hyperglycemia yesterday was treated aggressively - hypoglycemic episode ensued and resolved with a snack. * consequently, the patient refused PM Lantus dose --> hyperglycemic this AM * Fasting BSG above goal range secondary to missed basal dose. * Give Lantus 15 units SQ x1 now. * since Solu-Medrol change to PO prednisone today, will decrease PM Lantus to 10 units SQ to avoid hypoglycemia. * Hyperglycemic today pre-lunch. * again, may be due to either steroids and/or missing Lantus last night * will not overcorrect - allow NovoLog to work and re-check BSG with dinner. * Added overnight Accu-check at 02:00 since Lantus dose decreased tonight. 08/06/16 * BSGs less labile yesterday, though did see hypoglycemia pre-dinner * secondary to NovoLog "stacking" with breakfast and lunch doses - "loosen" NovoLog parameters to avoid repeat * Additional Lantus give on 08/05 secondary to refusal of dose on 08/04 and hyperglycemia * normal dose given last evening and BSG today 166mg/dL - no additional basal dose needed at this time * Hypoglycemic event on 08/04 and again on 08/05 * in addition to loosening the NovoLog parameters, will also reduce basal insulin dose (steroids tapered to once daily) 08/07/16 * After missing AM dose of Lantus on 08/06, Mr. Carranza became hyperglycemic in the evening * Fasting BSG today continues to be elevated. * Historically, greater than 20 units of Lantus produced low BSGs and only 10 units resulted in hyperglycemic - aim for ~15 units of Lantus today --> may have to reduce tomorrow as prednisone has been stopped(?) * Slightly tighten NovoLog parameters as the change yesterday appear to be too drastic. PLAN FOR INPATIENT GLYCEMIC CONTROL: * Basal insulin with Lantus: * 5 units SQ this AM * 10 units SQ this PM * Correctional Insulin with NOVOLOG per scale AC/HS or Q6hrs while NPO. * Goal Range: Low 140 mg/dL - High 180 mg/dL per ADA recommendations * Correction Factor: 25 mg/dL/unit * Nutritional / Prandial insulin per carb ratio of 1 unit per 9 grams CHO consume RECOMMENDATIONS FOR DISCHARGE: * Likely able to resume home regimen at discharge * Please note that the plan above was derived based on current level of insulin resistance and hospital stress. These recommendations are appropriate for inpatient admission only. Plan of care upon discharge will need to be reassessed to avoid potential outpatient hypo/hyperglycemia. Thank you.
[2016-08-07 12:45] LABS: HEMATOCRIT 26.5 % (42-52)
[2016-08-07] MEDS: LEVOFLOXACIN 750MG / D5W IV SCH (12:47)
--- NOTE | 2016-08-07 14:29 | Progress Note ---
Post ICU Progress Note Date & Time Aug 07, 2016 at 14:05 Vital Signs Vital Signs Past 12 Hours Date Time Temp Pulse Resp B/P Pulse Ox O2 Delivery O2 Flow Rate FiO2 08/07/16 12:00 95 Nasal Cannula 2.0 35 08/07/16 12:00 36.5 72 20 112/68 92 Nasal Cannula 3.0 08/07/16 10:45 62 18 97 Nasal Cannula 5.0 08/07/16 08:00 95 Nasal Cannula 2.0 35 08/07/16 08:00 36.5 86 18 102/67 93 Nasal Cannula 3.0 08/07/16 07:06 86 18 95 Nasal Cannula 2.0 08/07/16 04:00 Nasal Cannula 5.0 08/07/16 03:51 36.8 97 20 106/71 93 Nasal Cannula 5.0 Notes Mental Status: alert / awake Nausea / Vomiting: adequately controlled Pain: adequately controlled Airway Patency, RR, SpO2: stable & adequate BP & HR: stable & adequate This is a 71 yo male that was admitted to the ICU for increasing SOB and recurrent B/L pleural effusions. He presented with increasing dyspnea in spite of non-invasive ventilation. He did well in the unit and was transferred to room [facility] [place] on telemetry. The patient was seen in bed and had no acute distress. He denied SOB but does state that he has persistent cough. He has no chest pain or tightness. He denies pain at the chest tube insertion site. His chest tube is currently at 20 cm H2O and demonstrates no air leak. CXR shows persistent small left effusion. Previous 4.5mm pneumothorax is resolved. Dr. Shrestha saw the patient this morning and suggested that the tube be left on wall suction. This seems reasonable as the pleural fluid continues to drain. I will talk to Dr. Shrestha regarding chest tube management. We will be glad to remove the chest tube when appropriate. Repeat imaging needed: CXR tomorrow morning Reviewed progress notes, labs, and inpatient medication list Continue current management Additional recommendations: Dr. Shrestha from pulmonary following Aside from the placement of the chest tube, there are no other critical care issues. Thank you for including us in the care of this patient. Please feel free to reconsult as needed Consults & Procedures Consultants: Dr. Beaver/Dr. Shrestha - Pulmonology Dr. Hernandez - Cardiology Procedures: Arterial line 08/02/16 - Dr. Heredia Left pleural catheter (8.5 fr pigtail catheter) 08/03/16 - Dr. Heredia
--- NOTE | 2016-08-07 15:06 | CARDIOLOGY CONSULTATION ---
DATE OF CONSULTATION: 08/07/2016 DATE OF CONSULTATION: 08/07/2016. PERTINENT HISTORY: Mr. Carranza is a 71-year-old white male with a complex past medical history who was admitted back on 07/31/2016 with shortness of breath and a recurrent pleural effusion. This consultation was ordered yesterday because of right-sided congestive heart failure. The patient's recent history began on July 29 when he was apparently admitted to [facility] with respiratory failure and was found to have a pneumonia. He was eventually discharged home but presented here again on 07/31/2016 as described above. He was treated aggressively for a COPD flare and his pleural effusion was tapped. An indwelling catheter was left in the pleural space. He also received steroids, nebulized treatments, and intravenous Lasix at 20 mg b.i.d. for congestive failure. The patient had an episode of chest discomfort on 08/06/2016. EKG at that time noted atrial fibrillation and nonspecific T-wave abnormality. Troponin levels were normal. Review of his record notes a 9 kilogram weight gain since 08/01/2016. The patient was a very poor historian this morning as he is quite somnolent and continued to fall asleep during my interview. 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 Billy or to the [place] system. PAST MEDICAL HISTORY: 1. Chronic diastolic congestive heart failure. 2. Paroxysmal atrial fibrillation. 3. Chronic obstructive pulmonary disease. 4. Recurrent pleural effusion. 5. Diabetes. 6. Diabetic neuropathy. 7. History of GI bleed. 8. Peripheral vascular disease. 9. Left great toe amputation. 10. Right heel decubitus ulcer. 11. History of CVA. 12. BPH. 13. Depression. 14. Intraocular lens implant -- 2013. 15. DNR level 5. 16. Hypothyroidism. ALLERGIES: None. MEDICATIONS: 1. Coreg 25 mg b.i.d. 2. Diltiazem 30 mg t.i.d. 3. Spironolactone 25 mg daily. 4. Lasix 20 mg IV b.i.d. 5. Coumadin 2 mg alternating with 3 mg every other day. 6. Mucomyst nebulizer b.i.d. 7. Pulmozyme neb b.i.d. 8. Levaquin 750 mg IV daily. 9. Piperacillin/tazobactam -- per pharmacy consult. 10. Spironolactone 0.025 mg daily. 11. Protonix 40 mg per day. 12. Carafate 1 gram q.i.d. 13. Neurontin 300 mg b.i.d. 14. Flomax 0.4 mg daily. 15. Paxil 20 mg daily. 16. Vitamin B 500 units daily. SOCIAL HISTORY: The patient is retired and lives alone. Quit tobacco use 2 months ago. Admits to 2 beers daily. FAMILY HISTORY: Not obtainable, but apparently no early coronary artery disease. REVIEW OF SYSTEMS: Unobtainable. PHYSICAL EXAMINATION: GENERAL: This is a disheveled male appearing older than stated age. VITAL SIGNS: Blood pressure is 112/68 with a regular pulse of 72. Respiratory rate is 20. The patient is afebrile at 36.5 degrees Celsius. Saturations 95% on 2 liters nasal cannula. HEAD, EYES, EARS, NOSE, AND THROAT: Negative. NECK: Supple with full carotid upstrokes. There are no obvious bruits. Jugular venous pressure is difficult to assess. There is no thyromegaly. CARDIOVASCULAR EXAMINATION: Reveals an irregularly irregular rhythm with distant heart sounds. No obvious murmurs. LUNGS: Note distant breath sounds but no rales, rhonchi, or wheezes. ABDOMEN: Obese without bruits. EXTREMITIES: Reveal intact radial artery pulses bilaterally. Trace to 1+ pretibial edema is noted. LABORATORY DATA: CBC notes a hemoglobin of 8.1, hematocrit 26.0, white count 4.8, platelet count 147,000. Electrolytes note a sodium of 138, potassium 4.9, chloride 98, bicarbonate 35, BUN 41, creatinine 0.8, glucose 282. Troponin I level since his chest discomfort on the are normal at 0.03, 0.027, and 0.026. No CKs. INR is therapeutic at 2.1. Echocardiogram interpreted by Dr. Castillo on 07/31/2016 noted low normal ejection fraction of 50-55%. There is evidence of left ventricular hypertrophy and diastolic dysfunction. There is normal right ventricular systolic function, but moderate tricuspid regurgitation and an elevated right ventricular systolic pressure calculated at 30-40 mmHg. EKGs have noted atrial fibrillation. There has been a nonspecific T-wave abnormality. He had a rapid response on presentation which has normalized. Chest x-ray notes cardiomegaly with bilateral pleural effusions. CT scan of the chest done in [place] showed no evidence of pulmonary embolism. IMPRESSION: Mr. Carranza was admitted with respiratory failure which is multifactorial in origin. Clearly, he had a flare of his known COPD along with significant pleural effusions, atrial fibrillation, and diastolic congestive heart failure. He also notes a significant anemia. It appears he has gained 9 kilograms since 08/01/2016. He is only receiving Lasix 20 mg IV b.i.d. He may benefit from a higher dose. However, he does not appear to be significantly decompensated at this time. He may be hypervolemic. PLAN: 1. Consider increased dose of intravenous Lasix. 2. Would continue carvedilol. 3. Consider correcting anemia and/or investigating its cause. 4. Pleural effusion management per pulmonary team. 5. Further recommendations depending on his clinical course.
[2016-08-07] MEDS: LORAZEPAM 1 MG TAB PO PRN (15:28)
[2016-08-07] MEDS: MoRPHine SULFATE 2 MG/ML CARP IV PRN (15:28)
[2016-08-07] MEDS ORDERED: WARFARIN SOD 2 MG TAB PO SCH (16:00)
[2016-08-07 16:48] LABS: HEMATOCRIT 25.8 % (42-52)
[2016-08-07] MEDS ORDERED: VANCOMYCIN TROUGH ONE (19:30)
[2016-08-07] MEDS ORDERED: FUROSEMIDE 40 MG/4 ML VIAL IV STA (21:20)
[2016-08-07] MEDS: PAROXETINE 20 MG TAB PO SCH (22:15)
[2016-08-07] MEDS: TAMSULOSIN HCL 0.4 MG CAP PO SCH (22:17)
[2016-08-07] MEDS: INSULIN GLARGINE SOLOSTAR 100 UNITS/ML 3 ML PEN SC SCH (22:21)
[2016-08-08] VITALS (13 sets, daily range): BP systolic 102–148; BP diastolic 62–76; PULSE 66–94; TEMP 36.4–36.8; O2SAT 91–99
[2016-08-08] MEDS: ZOLPIDEM TARTRATE 5 MG TAB PO PRN (00:17)
[2016-08-08] MEDS: MoRPHine SULFATE 2 MG/ML CARP IV PRN (00:19)
[2016-08-08] MEDS: LEVOTHYROXINE 25 MCG TAB PO SCH (05:32)
[2016-08-08 05:40] LABS: EOS % 1.2 %; HEMATOCRIT 27.6 % (42-52); IG% 0.8 %; LYMPH % 9.9 %; MEAN CORPUSCULAR HEMOGLOBIN 26.8 pg (25-34); MEAN CORPUSCULAR HGB CONC 31.2 g/dl (32-36); MEAN PLATELET VOLUME 9.8 fL (7.4-10.4); MONO % 11.1 %; PLATELET COUNT 163 K/uL (130-400); RED BLOOD COUNT 3.21 M/uL (4.7-6.1); WHITE BLOOD COUNT 5.05 K/uL (4.8-10.8)
[2016-08-08 06:03] LABS: INR 3.1 (0.9-1.1); PROTHROMBIN TIME (PATIENT) 34.4 SECONDS (9.0-12.0)
[2016-08-08 06:11] LABS: ACANTHOCYTES 1+; COMPLETE YES; TEAR DROP CELLS 1+
[2016-08-08 06:24] LABS: BUN/CREATININE RATIO 35.2 (10-20); CALCIUM 7.6 mg/dl (8.5-10.1); POTASSIUM 4.7 mmol/L (3.5-5.1)
[2016-08-08] MEDS: DORNASE ALFA (2500U) 2.5MG/2.5ML INH SCH ×2 (06:58→20:29)
[2016-08-08] MEDS: ACETYLCYSTEINE 20% INHAL SOLN ***DISPENSED BY RESP. INH SCH ×2 (06:58→20:29)
[2016-08-08] MEDS: ALBUT/IPRATROP 3MG/0.5MG NEB 3 ML VIAL INH SCH ×4 (06:58→20:28)
--- NOTE | 2016-08-08 07:03 | DIAGNOSTIC IMAGING REPORT ---
CHEST ONE VIEW PORTABLE CLINICAL HISTORY: dyspnea and SOB dyspnea COMPARISON STUDY: 08/07/2016 FINDINGS: Left basilar pleural catheter unchanged in location. Unchanging radiographic findings of congestive failure. Heart remains mildly enlarged. Slightly diminished prominence. Right hemidiaphragm is poorly seen. IMPRESSION: Unchanging left basilar pleural index catheter. 2. Congestive failure unchanged from the prior study radiographically Electronically signed by: Kaleb Saldaña M.D. 08/08/2016 7:01 AM Dictated Date/Time: 08/08/2016 7:00 AM
--- NOTE | 2016-08-08 07:39 | PROGRESS NOTE ---
DATE: 08/08/2016 DATE: 08/08/2016. SUBJECTIVE: The patient is very comfortable, states he feels considerably better now. He denies chest pain or cough. He is refusing BiPAP. We discussed this at great length. He is just refusing stating does not want to wear it. He did not really give me a good reason. He has not been out of bed. Chest tube is functioning appropriately on the left side. PHYSICAL EXAMINATION: VITAL SIGNS: Stable and he is afebrile. Blood pressure 148/76, oxygen saturation 92% on 2 liters. I O is 1390 in and 3060 out. He has had 1450 mL out since midnight. Weight 100.8 kilograms. I am not sure how accurate that is since he was 95.3 kilograms on the 4th. According to nurses' notes he had a fairly good night last night. Again was declining BiPAP and was asking for breakfast this morning. HEAD, EYES, EARS, NOSE, AND THROAT: Unremarkable. No neck vein distention or HJR. HEART: Regular rate and rhythm, I do not detect any gallops. LUNGS: Revealed decreased breath sounds with few crackles at the left base posteriorly. Otherwise, I thought the lungs were clear today. No rhonchi are noted. There is no fremitus or dullness to percussion. ABDOMEN: Soft, nontender. He has no cyanosis, clubbing or edema. The chest x-ray reveals increase in vascular markings consistent with heart failure and pulmonary edema. No pneumothorax is noted. LABORATORY DATA: White count is 5, hemoglobin has increased to 8.6 with a platelet count 163,000. BUN was 35, CO2 was 39. Sugars have been in the 177 to 319 range. MRSA DNA surveillance screen by DNA probe was negative. Pleural fluid AFP is negative, of course the culture is pending. Gram stain showed no abnormalities. There was no growth noted from the 4th. IMPRESSION: 1. Respiratory failure with hypercapnia and hypoxemia related to heart failure and moderate degree of obstructive lung disease. 2. Chronic obstructive pulmonary disease with exacerbation. 3. Congestive heart failure, systolic and diastolic. 4. Probable right lower lobe infiltrate. RECOMMENDATIONS: At this point, I think the chest tube could be placed on underwater seal. If there is no evidence of pneumothorax by chest x-ray tomorrow then I would recommend removing the chest tube. Perhaps the family practice resident would be able to do that. Recommend continue with good diuresis and instructed the patient as to 1500 mg sodium diet. His INR is 3.1 and his rhythm is under fairly good control at present time. I would finish out the antimicrobial agents. I think piperacillin/tazobactam could be discontinued and I would just continue on Levaquin at an adjusted dose. Overall he is stable and improved. MTDD
[2016-08-08] MEDS: FUROSEMIDE INJ 20 MG in SYRINGE 0 ML IV SCH ×2 (08:00→16:52)
[2016-08-08] MEDS: SPIRONOLACTONE 25 MG TAB PO SCH (08:00)
[2016-08-08] MEDS: CARVEDILOL 25 MG TAB PO SCH ×2 (08:00→20:35)
[2016-08-08] MEDS: PANTOprazole SOD 40 MG TAB PO SCH (08:00)
[2016-08-08] MEDS: DILTIAZEM HCL 30 MG TAB PO SCH ×3 (08:00→20:34)
[2016-08-08] MEDS: CYANOCOBALAMIN 500 MCG TAB (VIT B-12) PO SCH (08:00)
[2016-08-08] MEDS: GABAPENTIN 300 MG CAP PO SCH ×2 (08:00→20:35)
[2016-08-08] MEDS: BUDESONIDE/FORMOTEROL FUMARATE 160/4.5 60 PUFFS/INHALER INH SCH ×2 (08:01→20:33)
[2016-08-08] MEDS: SUCRALFATE 1 GM/10 ML UDC PO SCH ×4 (08:01→20:34)
[2016-08-08] MEDS: INSULIN ASPART 100 UNITS/ML 3 ML PEN SC SCH ×4 (08:04→20:28)
[2016-08-08] MEDS: PIPERACILL/TAZOBAC IV 3.375 GM in DEXTROSE 5% 100ML IV SCH (08:06)
[2016-08-08] MEDS: LEVOFLOXACIN 750MG / D5W IV SCH (11:12)
--- NOTE | 2016-08-08 11:57 | CARDIOLOGY PROGRESS NOTE ---
DATE: 08/08/2016 SUBJECTIVE: Mr. Carranza is resting comfortably in bedside chair without complaints of chest pain. His dyspnea has improved. He is anxious for hospital discharge. OBJECTIVE: VITAL SIGNS: Blood pressure is 113/65 with an irregular pulse of 86. Respiratory rate is 20. The patient is afebrile at 36.8 degrees Celsius. Saturation is 91% on 5 liters nasal cannula. NECK: Supple with full carotid upstrokes. There are no carotid bruits. Jugular venous pressure is difficult to assess. There is no thyromegaly. CARDIOVASCULAR: Reveals an irregularly irregular rhythm with distant heart sounds. No obvious murmurs. No S3. LUNGS: Note distant breath sounds but no rales, rhonchi, or wheezes. ABDOMEN: Obese without bruits. EXTREMITIES: Reveal intact radial artery pulses bilaterally. Trace pretibial edema is noted. DATA: CBC notes a hemoglobin of 8.6, hematocrit 27.6, white count 5.0, platelet count 163,000. Electrolytes note a sodium of 137, potassium 4.7, chloride 95, bicarbonate 39, BUN 35, creatinine 1.0, glucose 260. INR is 3.1. modeling and simulation analyst notes atrial fibrillation with a controlled ventricular response. IMPRESSION AND PLAN: 1. Respiratory failure -- multifactorial in origin. He is experiencing a flare of his known COPD with significant pleural effusions, atrial fibrillation, and diastolic dysfunction. His diuretic was increased yesterday. Weight remains stable. 2. Chronic diastolic congestive heart failure -- as above. 3. Paroxysmal atrial fibrillation -- on therapeutic Coumadin at this time. 4. Recurrent pleural effusions -- per pulmonary team. 5. Diabetes mellitus -- with diabetic neuropathy. 6. Peripheral vascular disease -- status post left great toe amputation. 7. History of CVA. 8. DNR level 5.
[2016-08-08] MEDS: ACETAMINOPHEN 325 MG TAB PO PRN ×2 (14:14→14:25)
[2016-08-08] MEDS: WARFARIN SOD 3 MG TAB PO SCH (16:50)
--- NOTE | 2016-08-08 17:48 | Family Medicine Progress Note ---
Progress Note Date of Service Aug 08, 2016. Subjective Pt evaluation today including: conversation w/ patient, physical exam, chart review, lab review The patient was seen and examined at bedside. Pt received 40mg IV furosimide overnight. Telemetry showed Afib with an average rate of 100. Patient is resting comfortably in bed. Denies having any pain. Eating and urinating well. Plan of care was described to the patient and all questions were answered. Constitutional: No chills, No fever Respiratory: No cough, No shortness of breath, No sputum, No wheezing Cardiovascular: No chest pain Abdomen: No diarrhea, No nausea, No pain, No vomiting Objective Physical Exam General Appearance: WD/WN, no apparent distress, + obese Respiratory/Chest: chest non-tender, lungs clear, no respiratory distress, no accessory muscle use, + pertinent finding (decreased breath sounds) Cardiovascular: no edema, no gallop, no JVD, no murmur, + irregularly irregular Abdomen: normal bowel sounds, non tender, soft Extremities: normal range of motion, non-tender, no calf tenderness Neurologic/Psychiatric: alert, normal mood/affect, oriented x 3 Assessment and Plan 70 year old male presents with acute hypoxic respiratory failure secondary to recurrent bilateral pleural effusions, on background of COPD with 2L O2 at home , poorly controlled DM2, diastolic CHF, and hypothyroidism. Symptoms attributed to acute on chronic CHF. Concurrent management with diuresis, krueger and chest tube drainage. Patient refused Video Speech Swallow on 08/05/16. On 08/06/16 patient experienced an episode of crushing chest pain likely from demand ischemia 08/01 to hypoxia. Patient is otherwise improving clinically. Acute on Chronic hypoxic respiratory failure - Patient is clinically stable today. Received 40mg IV dose of Lasix overnight. Patient is on 2LNC. Refused to wear night BIPAP. Chest tube is placed to underwater seal. Patient is using the incentive spirometer. Patient has completed his dose of Prednisone on Friday. AM X-ray showed no changes from previous day. - Pt refused Video swallow study to rule out aspiration. - Per pulmonary - c/w Bipap at night with expiratory pressure of 5, inspiratory pressure of [address] rate of 10. - c/w daily morning X-rays. - c/w Abx for HCAP (Levoquin Day#10/04) for respiratory failure. Per pulm recs, discontinue Zosyn. - c/w Duoneb INH Q4 Scheduled, c/w Symbacort BID and adding Pulmizyme BID. Acute on Chronic Diastolic CHF - No episodes of crushing chest pain since 08/06/16. - CHF protocols in place: fluid restriction limit to 1.5L, monitor I/O and weight change, assess hydration status. - Cardiology consulted- continue present management. - c/w IV Lasix 20IV BID and continue to monitor. - c/w Aldactone 25mg daily. New Onset Anemia - Hemoglobin stable between 8 and 9. Unknown source of blood loss. Pt has not had a BM in 48 hours. May be hemodilution from family providing hydration. FOBT negative. - Continue to monitor. Large left pleural effusion -s/p tube thoracostomy 08/03/16. Pigtail catheter in place. Was on wall suction, per pulm recs, changed to underwater seal. Afib with RVR - Overnight Telemetry showed Afib with an average rate of 100. - INR today of 3.1. - c/w Coreg 25mg BID and diltiazem 30mg TID - c/w Warfarin 2mg M,W,F,Sun and 3mg on es, Th, Sat. Neuropathic pain 2/2 DM2 - c/w Gabapentin 300mg BID - He has previously been on significantly higher doses previously, titrate up as necessary. Chronic Right heel ulceration and Left Forearm Skin Tear - Wound care on board. DM2 - c/w Lantus + Aspart sliding scale with AC/HS BSG Recent H/O severe GI bleed requiring blood transfusion - Continue Carafate 1g and Protonix 40mg daily Depression - c/w Paroxetine 20mg daily BPH - c/w tamsulosin 0.4mg daily. DVT Prophylaxis - Warfarin daily. Schedule as described above. Code status - DNR/DNI. Resident Involvement: Resident Care Provided Care Provided: Adult Hospital Medicine Reviewed: Pt Seen/Exam by Me History feeling better today Constitutional: denies: fever Respiratory: negative: short of breath Cardiovascular: denies chest pain General Appearance: no apparent distress Respiratory: no respiratory distress, decreased breath sounds (base) Cardiovascular: irregularly irregular Neurologic/Psychiatric: other (somnolent - easily arousable) Skin Characteristics: warm/dry Assessment/Plan I have reviewed the medical record and performed a history and physical examination of this patient today. I have discussed the case with Dr. Garsia. The above note reflects my findings, conclusions, and recommendations.
[2016-08-08] MEDS: INSULIN GLARGINE SOLOSTAR 100 UNITS/ML 3 ML PEN SC SCH (20:29)
[2016-08-08] MEDS: PAROXETINE 20 MG TAB PO SCH (20:35)
[2016-08-08] MEDS: TAMSULOSIN HCL 0.4 MG CAP PO SCH (20:36)
[2016-08-09] VITALS (16 sets, daily range): BP systolic 110–125; BP diastolic 66–77; PULSE 65–95; TEMP 36.3–36.9; O2SAT 93–98
[2016-08-09 05:00] LABS: HEMATOCRIT 25.8 % (42-52); IG% 0.6 %; LYMPH % 14.5 %; LYMPH ABS # 0.78 K/uL (1.2-3.4); MEAN CELL VOLUME 83.8 fL (80-100); MEAN PLATELET VOLUME 9.2 fL (7.4-10.4); MONO % 14.1 %; NEUT % 68.8 %; PLATELET COUNT 143 K/uL (130-400); RED BLOOD COUNT 3.08 M/uL (4.7-6.1); WHITE BLOOD COUNT 5.38 K/uL (4.8-10.8)
[2016-08-09] MEDS: LEVOTHYROXINE 25 MCG TAB PO SCH (05:28)
[2016-08-09 05:31] LABS: PROTHROMBIN TIME (PATIENT) 42.2 SECONDS (9.0-12.0)
[2016-08-09 05:34] LABS: INR 3.7 (0.9-1.1)
[2016-08-09 05:41] LABS: COMPLETE YES
[2016-08-09 05:56] LABS: BUN/CREATININE RATIO 40.2 (10-20); CALCIUM 7.6 mg/dl (8.5-10.1); CREATININE 0.71 mg/dl (0.60-1.40); POTASSIUM 4.4 mmol/L (3.5-5.1)
--- NOTE | 2016-08-09 07:14 | PULMONARY PROGRESS NOTE ---
DATE: 08/09/2016 The patient is improved and continues to improve. He states he was out of bed yesterday in the chair and feels well this morning. He denies cough or chest discomfort. He continues to have a Doe catheter in place. Chest tube has been draining; that is stable as well. According to nurses' notes it doesn't appear that he was out of bed in the chair from what I can determine. Nonetheless, he appears to be stable. His rhythm is stable in atrial fibrillation. I talked to him about incentive spirometry and states he can get up to 1500, but I think he only gets it up to about 700. PHYSICAL EXAMINATION: VITAL SIGNS: His blood pressure 125/77, pulse is 80 and respiratory rate is 18, oxygen saturation 97% on 4 liters and he is afebrile. I\T\O is 1557 in and 3490 out. Weight 100.8 kilograms. It appears he had about 340 mL out of the chest tube again and that has been stable. MEDICATIONS: Noted. NECK: There is no neck vein distention or HJR. HEENT: Posterior pharynx is normal. HEART: Irregular rhythm. No gallops or murmurs auscultated. LUNGS: Reveal decreased breath sounds at the left base with a few crackles, otherwise are clear. ABDOMEN: Soft, nontender. He has no cyanosis, clubbing or edema. PRP is stable with a CO2 of 39. He is refusing BiPAP. LABORATORY DATA: His hemoglobin is only 8. INR is 3.7. His chest film from the continued to show changes consistent with heart failure. IMPRESSION: 1. Congestive heart failure. 2. Anemia. 3. Respiratory failure. 4. COPD. RECOMMENDATIONS: 1. At this point I think the chest tube could be removed. It appears to be the catheter that may be sutured in and that should be easy just to remove it. I do not think we will need to have one and will need to follow his chest x-ray for development of worsening pleural effusion on the left side. 2. At this point I would consider transfusing the patient with 2 units of packed cells. Check a stool for blood. His anemia may be contributing to some of his heart failure and I would like to get his hemoglobin above 10. 3. Continue with his Symbicort and Levaquin could be changed to p.o. 500 mg daily for a full 7-10 day course. Increasing his activity would be helpful as well. Overall, he is stable.
[2016-08-09] MEDS: ALBUT/IPRATROP 3MG/0.5MG NEB 3 ML VIAL INH SCH ×4 (07:26→23:50)
[2016-08-09] MEDS: DORNASE ALFA (2500U) 2.5MG/2.5ML INH SCH ×2 (07:26→19:12)
[2016-08-09] MEDS: ACETYLCYSTEINE 20% INHAL SOLN ***DISPENSED BY RESP. INH SCH ×2 (07:26→19:12)
[2016-08-09] MEDS: SPIRONOLACTONE 25 MG TAB PO SCH (07:52)
[2016-08-09] MEDS: DILTIAZEM HCL 30 MG TAB PO SCH ×3 (07:52→19:53)
[2016-08-09] MEDS: FUROSEMIDE INJ 20 MG in SYRINGE 0 ML IV SCH ×2 (07:52→17:18)
[2016-08-09] MEDS: SUCRALFATE 1 GM/10 ML UDC PO SCH ×4 (07:53→19:53)
[2016-08-09] MEDS: GABAPENTIN 300 MG CAP PO SCH ×2 (07:53→19:54)
[2016-08-09] MEDS: BUDESONIDE/FORMOTEROL FUMARATE 160/4.5 60 PUFFS/INHALER INH SCH ×2 (07:53→19:53)
[2016-08-09] MEDS: CYANOCOBALAMIN 500 MCG TAB (VIT B-12) PO SCH (07:53)
[2016-08-09] MEDS: CARVEDILOL 25 MG TAB PO SCH ×2 (07:53→19:54)
[2016-08-09] MEDS: INSULIN ASPART 100 UNITS/ML 3 ML PEN SC SCH ×4 (07:55→20:48)
--- NOTE | 2016-08-09 08:02 | DIAGNOSTIC IMAGING REPORT ---
CHEST ONE VIEW PORTABLE CLINICAL HISTORY: dyspnea and SOB dyspnea COMPARISON STUDY: 08/08/2016 FINDINGS: Mild increase in pulmonary vasculature compared to the prior study. Small right effusion unchanged. Drainage catheter left base unchanged. IMPRESSION: Congestive failure slightly increased in prominence from the prior study. Otherwise unchanged exam Electronically signed by: Kaleb Saldaña M.D. 08/09/2016 8:00 AM Dictated Date/Time: 08/09/2016 7:59 AM
[2016-08-09] MEDS: PANTOprazole SOD 40 MG TAB PO SCH (09:04)
--- NOTE | 2016-08-09 10:22 | Pharmacy Progress Note ---
Glycemic Control: Progress Nt Date of Service Aug 09, 2016. Scope Glycemic Pharmacist consulted by Dr Davison on 07/31/16 for glycemic control and to write orders per [facility] inpatient glycemic control protocol. Objective Accuchecks BSG (last 24hrs): Test 08/08/16 11:10 08/08/16 16:20 08/08/16 20:13 08/09/16 04:47 Bedside Glucose 187 mg/dl (70-99) 81 mg/dl (70-99) 157 mg/dl (70-99) Random Glucose 194 mg/dl (70-99) Test 08/09/16 06:58 Bedside Glucose 220 mg/dl (70-99) Laboratory Data (last 24hrs) Test 08/09/16 04:47 Anion Gap 3.0 mmol/L BUN/Creatinine Ratio 40.2 Blood Urea Nitrogen 29 mg/dl Creatinine 0.71 mg/dl Potassium Level 4.4 mmol/L Sodium Level 138 mmol/L White Blood Count 5.38 K/uL Red Blood Count 3.08 M/uL Hemoglobin 8.0 g/dL Hematocrit 25.8 % Mean Corpuscular Volume 83.8 fL Mean Corpuscular Hemoglobin 26.0 pg Mean Corpuscular Hemoglobin Concent 31.0 g/dl Platelet Count 143 K/uL Mean Platelet Volume 9.2 fL Neutrophils (%) (Auto) 68.8 % Lymphocytes (%) (Auto) 14.5 % Monocytes (%) (Auto) 14.1 % Eosinophils (%) (Auto) 2.0 % Basophils (%) (Auto) 0.0 % Neutrophils # (Auto) 3.70 K/uL Lymphocytes # (Auto) 0.78 K/uL Monocytes # (Auto) 0.76 K/uL Eosinophils # (Auto) 0.11 K/uL Basophils # (Auto) 0.00 K/uL HbA1c: Test 07/30/16 22:04 Hemoglobin A1c 7.6 % (4.5-5.6) H Recent Pertinent Medications Outpatient Anti-diabetic Regimen: * Lantus 24 units SQ q HS * Regular insulin sliding scale * Prednisone 10mg PO daily * A1c = 7.6 % 07/02/16 The patient is currently receiving: * Basal insulin: Lantus SQ Q HS (5 units if less than or = 140, 10 units if greater than 140) * Correctional Insulin: Novolog Correction per scale ACHS Goal Range: Low 140 mg/dL - High 180 mg/dL Correction Factor: 25 mg/dL/unit * Prandial insulin: Per carb ratio of 1 unit per 9 grams CHO consumed * Oral Agents: None currently Risk Factors for Insulin Resistance: * Infection: * Diet: ordered T2DM, AHA, Low Na+ diet and he appears to be tolerating this well Assessment & Plan ASSESSMENT: 08/09/16: * BSGs have ranged 81-284 over the last 24 hours * BSGs have been rather erratic and a clear pattern is not observed * Over the last 2 days he has required ~33-46 units per day while off steroids. * Post-prandial BSGs were a little better controlled yesterday. May achieve even better control with a lower goal range on Novolog order * Fasting AM hyperglycemia continue to occur, reason for this unclear - alida phenomenon? vs somogyi? Will check 0200 BSG tonight. * Given total daily insulin doses and higher home dose, will trial a larger basal insulin dose PLAN FOR INPATIENT GLYCEMIC CONTROL: * Increasing Lantus to 15 units SQ HS; today I plan to give 5 units with lunch and only 10 at bedtime. Higher HS dose to start tomorrow evening * Continuing correction factor of 25 mg/dl/unit * Continuing carb ratio of 1 unit per 9 grams CHO consumed * Changing goal range to Low 120 mg/dL - High 160 mg/dL * Check BSG at 0200 tonight to screen for hypo- and hyperglycemia RECOMMENDATIONS FOR DISCHARGE: * * Please note that the plan above was derived based on current level of insulin resistance and hospital stress. These recommendations are appropriate for inpatient admission only. Plan of care upon discharge will need to be reassessed to avoid potential outpatient hypo/hyperglycemia. Thank you.
[2016-08-09] MEDS ORDERED: INSULIN GLARGINE SOLOSTAR 100 UNITS/ML 3 ML PEN SC ONE (11:00)
[2016-08-09] MEDS: LEVOFLOXACIN 750 MG TAB PO SCH (11:35)
--- NOTE | 2016-08-09 12:10 | CARDIOLOGY PROGRESS NOTE ---
DATE: 08/09/2016 SUBJECTIVE: Mr. Carranza is resting comfortably in the bedside chair without complaints of chest pain or dyspnea. He is anxious for hospital discharge. OBJECTIVE: VITAL SIGNS: Blood pressure 111/73 with an irregular pulse of 67. Respiratory rate is 20. The patient is afebrile at 36.4 degrees Celsius. Saturations 96% on 4 liters nasal cannula. NECK: Supple with full carotid upstrokes. There are no carotid bruits. Jugular venous pressure is difficult to assess. There is no thyromegaly. CARDIOVASCULAR: Reveals an irregular rhythm with distant heart sounds. No obvious murmurs. No S3. LUNGS: Note distant breath sounds but no rales, rhonchi, or wheezes. ABDOMEN: Obese without bruits. EXTREMITIES: Reveal intact radial artery pulses bilaterally. Trace pretibial edema is noted. DATA: CBC notes a hemoglobin of 8.0, hematocrit 25.8, white count 5.3, platelet count 143,000. Electrolytes note a sodium of 138, potassium 4.4, chloride 96, bicarb 39, creatinine 0.7, BUN 29, glucose 194. INR is 3.7. quality assurance monitor notes atrial fibrillation with a controlled ventricular response. IMPRESSION AND PLAN: 1. Respiratory failure - multifactorial in origin. It has dramatically improved at this time. 2. Chronic diastolic congestive heart failure - compensated. 3. Paroxysmal atrial fibrillation - remains in atrial fibrillation. On therapeutic Coumadin. INR elevated this morning. 4. Recurrent pleural effusion - per pulmonary team. 5. Diabetes mellitus - with diabetic neuropathy. 6. Peripheral vascular disease - status post left great toe amputation. 7. History of cerebrovascular accident. 8. Do not resuscitate level 5. MTDD
--- NOTE | 2016-08-09 15:40 | Discharge Summary ---
Discharge Summary Admission Date: Jul 31, 2016 at 01:16 Discharge Disposition: Home Principal Diagnosis: Acute Hypoxic Respiratory Failure Procedures: Chest Tube Placement and Removal. Medication Reconciliation New Medications: Levofloxacin (Levofloxacin) 750 Mg Tab 750 MG PO DAILY@11 for 6 Days, #6 TAB Take every morning at 10am. Warfarin Sod (Coumadin) 2 Mg Tab 2 MG PO DAILY@1600 for 30 Days, #30 TAB Changed Medications: Furosemide (Lasix) 20 Mg Tab 60 MG PO DAILY for 15 Days, #45 TAB (Changed from: 20 MG; TID) Take three 20mg tablets, once daily, for a total daily dose of 60mg. Continued Medications: Acetaminophen Tab (Tylenol) 325 Mg Tab 650 MG PO Q4H PRN for Pain or Fever, TAB Albuterol Sulf (Albuterol Sulfate) 2.5 Mg/3 Ml Nebu 3 ML INH Q4H PRN for SOB/Wheezing Bisacodyl (Dulcolax) 10 Mg Sup 5 MG RE UD, SUP FOR NO BM 4 DAYS Budesonide (Pulmicort Respules 0.5MG/2ML) 0.5 Mg/2 Ml Nebu 2 ML INH BID, EA Carvedilol (Coreg) 12.5 Mg Tab 12.5 MG PO BID, TAB Cyanocobalamin (Vitamin B-12) 500 Mcg Tab 500 MCG PO DAILY, TAB TAKE 2 ( 500MCG) TABLETS BY MOUTH EVERY DAY Insulin Glargine (Lantus Solostar) 100 Unit/Ml Inj 24 SC HS, PEN Insulin Human Regular (Novolin R) 1 Ea Ea SQ ACHS for SLIDING SCALE 151-200=0 UNITS, 201-250=2 UNITS, 251-300=4 UNITS, 301-350=8 UNITS, 351-400=10 UNITS, <60 OR >400 CALL Levothyroxine Sodium (Levothyroxine Sodium) 25 Mcg Tab 1 TAB PO DAILY for 30 Days, #30 TAB 5 Refills Magnesium Hydroxide (Milk Of Magnesia) 30 Ml Susp 30 ML PO HS PRN for Constipation, ML Omeprazole (Prilosec) 20 Mg Capcr 20 MG PO DAILY, CAP Paroxetine (Paxil) 20 Mg Tab 20 MG PO HS, TAB Prednisone Tab (Prednisone) 10 Mg Tab 10 MG PO DAILY, TAB Sodium Phosphate/Biphosphate (Fleet Enema) [place] 1 EA NE DAILY PRN for Constipation, BTL Sucralfate (Carafate) 1 Gm/10 Ml Darya 10 ML PO ACHS for 30 Days, ML Tamsulosin Hcl (Flomax) 0.4 Mg Cap 1 CAP PO HS for 30 Days, CAP 5 Refills Warfarin Sod (Jantoven) 3 Mg Tab 3 MG PO DAILY, TAB Discontinued Medications: Amoxicillin & Pot Clavulanate (Augmentin 875-125 mg) 1 Tab Tab 1 TAB PO BID, #14 TAB Discharge Exam Subjective The patient was seen and examined at bedside. No acute overnight events. Patient is feeling well. Has a chest tube. Wants to go home. ROS: Pt denies SOB, chest pain, disturbances in mood. Pt denies having any pain. Eating and urinating well. Plan of care was described to the patient and all questions were answered. Constitutional: No chills, No fever, No sweats, No weight loss ENT: No hearing loss Respiratory: No cough, No sputum Cardiovascular: No chest pain, No edema, No orthopnea Abdomen: No nausea, No pain Musculoskeletal: No joint pain Male : No dysuria Objective Physical Exam General Appearance: WD/WN, no apparent distress, + obese Respiratory/Chest: chest non-tender, no respiratory distress, no accessory muscle use, + pertinent finding (decreased lung sounds in all rodriguez bilaterally characteristic of obstructive lung disease, no crackles, no rubs) Cardiovascular: no edema, no gallop, no JVD, no murmur, + irregularly irregular Extremities: normal range of motion, non-tender, no calf tenderness, + pertinent finding Neurologic/Psychiatric: alert, normal mood/affect, oriented x 3 Hospital Course 70 year old male presents with acute hypoxic respiratory failure secondary to recurrent bilateral pleural effusions, on background of COPD with 2L O2 at home , poorly controlled DM2, diastolic CHF, and hypothyroidism. Symptoms attributed to acute on chronic CHF. Concurrent management includes diuresis and chest tube drainage for pleural effusions. Patient refused Video Speech Swallow on 08/05/16. On 08/06/16 patient experienced an episode of crushing chest pain likely from demand ischemia 08/01 to hypoxia. Patient is otherwise improving clinically. Patient will be discharged on 750mg PO Levoquin to be taken daily at 10am. His lasix will be changed from 20 TID to 60 Daily due to compliance concerns. Also his Warfarin will be reduced to 2mg daily. While in the hospital multiple concurrent issues were managed simultaneously. DM2 - Monitored, managed with insulin and diet. Recent H/O severe GI bleed requiring blood transfusion - Medically managed. Depression - Managed medically BPH - Managed medically DVT Prophylaxis - Managed medically Code status - Changed to DNR/DNI. We recommend follow up with the PCP in two weeks. Total Time Spent: Greater than 30 minutes This includes examination of the patient, discharge planning, medication reconciliation, and communication with other providers. Discharge Instructions Please refer to the electronic Patient Visit Report (Discharge Instructions) for additional information. Resident Involvement: Resident Care Provided Care Provided: Adult [facility] Medicine
[2016-08-09] MEDS ORDERED: LVQ750 PO (15:42)
[2016-08-09] MEDS ORDERED: CMD2 PO (15:42)
[2016-08-09] MEDS ORDERED: FURO-85 PO (15:42)
--- NOTE | 2016-08-09 15:51 | Family Medicine Progress Note ---
Progress Note Date of Service Aug 09, 2016. Subjective Pt evaluation today including: conversation w/ patient, physical exam, chart review, lab review The patient was seen and examined at bedside. No acute overnight events. Patient is feeling well. Has a chest tube. Wants to go home. ROS: Pt denies SOB, chest pain, disturbances in mood. Pt denies having any pain. Eating and urinating well. Plan of care was described to the patient and all questions were answered. Constitutional: No chills, No fever, No sweats, No weight loss ENT: No hearing loss Respiratory: No cough, No sputum Cardiovascular: No chest pain, No edema, No orthopnea Abdomen: No nausea, No pain Musculoskeletal: No joint pain Male : No dysuria Objective Physical Exam General Appearance: WD/WN, no apparent distress, + obese Respiratory/Chest: chest non-tender, no respiratory distress, no accessory muscle use, + pertinent finding (decreased lung sounds in all rodriguez bilaterally characteristic of obstructive lung disease, no crackles, no rubs) Cardiovascular: no edema, no gallop, no JVD, no murmur, + irregularly irregular Extremities: normal range of motion, non-tender, no calf tenderness, + pertinent finding Neurologic/Psychiatric: alert, normal mood/affect, oriented x 3 Assessment and Plan 70 year old male presents with acute hypoxic respiratory failure secondary to recurrent bilateral pleural effusions, on background of COPD with 2L O2 at home , poorly controlled DM2, diastolic CHF, and hypothyroidism. Symptoms attributed to acute on chronic CHF. Concurrent management with diuresis, kureger and chest tube drainage. Patient refused Video Speech Swallow on 08/05/16. On 08/06/16 patient experienced an episode of crushing chest pain likely from demand ischemia 08/01 to hypoxia. Patient is otherwise improving clinically. Chest tube removed on 08/09/2016. Acute on Chronic hypoxic respiratory failure - Patient is doing well clinically today. Patient is on 2LNC. Refused to wear night BIPAP. Chest tube has been removed. Patient is using the incentive spirometer. Patient has completed his dose of Prednisone on Friday. AM X- ray showed slight increase of pulmonary congestion. - Pt refused Video swallow study to rule out aspiration. - Per pulmonary - c/w Bipap at night with expiratory pressure of 5, inspiratory pressure of [address] rate of 10. - c/w Abx 750mg PO Levoquin Day#6/7 - changing to PO, s/p 2 days of Zosyn. - c/w Duoneb INH Q4 Scheduled, c/w Symbacort BID and adding Pulmizyme BID. - c/w daily morning X-rays. Acute on Chronic Diastolic CHF - No episodes of crushing chest pain since 08/06/16. - CHF protocols in place: fluid restriction limit to 1.5L, monitor I/O and weight change, assess hydration status. - Cardiology consulted- continue present management. - c/w IV Lasix 20IV BID and continue to monitor. - c/w Aldactone 25mg daily. New Onset Anemia - Hemoglobin stable between 8 and 9. Unknown source of blood loss. Pt has not had a BM in 48 hours. May be hemodilution from family providing hydration. FOBT negative. - Continue to monitor. - Consider Transfusing with 2units PRBC. Large left pleural effusion -s/p tube thoracostomy 08/03/16. Pigtail catheter in place. Was on wall suction, per pularthur recmaureen, changed to underwater seal. Afib with RVR - Overnight Telemetry showed Afib with an average rate of 100. - INR today of 3.7<--3.1, will hold Coumadin today. - c/w Coreg 25mg BID and diltiazem 30mg TID - c/w Warfarin 2mg M,W,,Sun and 3mg on es, Th, Sat. Neuropathic pain 2/2 DM2 - c/w Gabapentin 300mg BID - He has previously been on significantly higher doses previously, titrate up as necessary. Chronic Right heel ulceration and Left Forearm Skin Tear - Wound care on board. DM2 - c/w Lantus + Aspart sliding scale with AC/HS BSG Recent H/O severe GI bleed requiring blood transfusion - Continue Carafate 1g and Protonix 40mg daily Depression - c/w Paroxetine 20mg daily BPH - c/w tamsulosin 0.4mg daily. DVT Prophylaxis - Warfarin daily. Schedule as described above. Code status - DNR/DNI. Resident Involvement: Resident Care Provided Care Provided: Adult Hospital Medicine Reviewed: Pt Seen/Exam by Me History breathing better Constitutional: denies: fever Respiratory: negative: short of breath Cardiovascular: denies chest pain General Appearance: no apparent distress Respiratory: no respiratory distress, decreased breath sounds, other (chest tube removed) Cardiovascular: irregularly irregular Neurologic/Psychiatric: alert, oriented x 3 Skin Characteristics: warm/dry Assessment/Plan I have reviewed the medical record and performed a history and physical examination of this patient today. I have discussed the case with Dr. Garsia. The above note reflects my findings, conclusions, and recommendations.
--- NOTE | 2016-08-09 15:56 | Discharge Instructions ---
Discharge Instructions Admission Reason for Admission: Hypoxia,Pleural Effusion Discharge Discharge Diagnosis / Problem: Acute Hypoxic Respiratory Failure Discharge Goals Goal(s): Decrease discomfort, Improve disease control, Improve nutritional status, Learn about illness Activity Recommendations Activity Limitations: resume your previous activity . Instructions / Follow-Up Instructions / Follow-Up - You will be discharged on 750mg PO Levoquin to be taken daily at 10am. - Lasix will be changed from 20mg three times a day to 60mg Daily due to compliance concerns. - Warfarin will be reduced to 2mg daily. Regular blood work is required to monitor blood thickness while you are on your blood thinner, Warfarin (Coumadin). Please see attached discharge instructions regarding Coumadin administration. It is important that you quit smoking immediately. We recommend follow up with the PCP within 7 days. Current Hospital Diet Patient's current hospital diet: Diabetes Type 2 Diet, AHA Diet (Heart Healthy) , Low Sodium Diet (2gm Na) Discharge Diet Recommended Diet: Diabetes Type 2 Diet Procedures Procedures Performed: Chest Tube Placement and Removal. Pending Studies Studies pending at discharge: no Laboratory Results Hemoglobin A1c Test 07/30/16 22:04 Range/Units Estimated Average Glucose 171 mg/dl Hemoglobin A1c 7.6 H 4.5-5.6 % Medical Emergencies . Who to Call and When: Medical Emergencies: If at any time you feel your situation is an emergency, please call 911 immediately. . Non-Emergent Contact Non-Emergency issues call your: Primary Care Provider . . "Provider Documentation" section prepared by Kaleb Garsia. VTE Core Measure Inpt VTE Proph given/why not?: Warfarin (Coumadin) Resident Involvement: Resident Care Provided Care Provided: Adult Hospital Medicine
[2016-08-09] MEDS: WARFARIN SOD 2 MG TAB PO SCH (16:00)
[2016-08-09] MEDS: ACETAMINOPHEN 325 MG TAB PO PRN (17:15)
[2016-08-09] MEDS: TAMSULOSIN HCL 0.4 MG CAP PO SCH (19:53)
[2016-08-09] MEDS: PAROXETINE 20 MG TAB PO SCH (19:54)
[2016-08-09] MEDS ORDERED: INSULIN GLARGINE SOLOSTAR 100 UNITS/ML 3 ML PEN SC SCH (21:00)
[2016-08-09] MEDS: LORAZEPAM 0.5 MG TAB PO PRN (22:38)
[2016-08-10] VITALS (14 sets, daily range): BP systolic 108–129; BP diastolic 62–82; PULSE 65–88; TEMP 36.4–36.8; O2SAT 92–96
[2016-08-10] MEDS ORDERED: INSULIN ASPART 100 UNITS/ML 3 ML PEN SC ONE (02:00)
[2016-08-10] MEDS: LEVOTHYROXINE 25 MCG TAB PO SCH (06:15)
[2016-08-10 06:19] LABS: EOS % 1.2 %; HEMATOCRIT 26.8 % (42-52); IG% 0.5 %; LYMPH % 13.3 %; LYMPH ABS # 0.87 K/uL (1.2-3.4); MEAN CELL VOLUME 84.3 fL (80-100); MEAN CORPUSCULAR HEMOGLOBIN 25.8 pg (25-34); MEAN CORPUSCULAR HGB CONC 30.6 g/dl (32-36); MEAN PLATELET VOLUME 9.6 fL (7.4-10.4); MONO % 12.4 %; NEUT % 72.6 %; PLATELET COUNT 171 K/uL (130-400); RED BLOOD COUNT 3.18 M/uL (4.7-6.1); WHITE BLOOD COUNT 6.52 K/uL (4.8-10.8)
[2016-08-10 06:47] LABS: CREATININE 0.65 mg/dl (0.60-1.40); POTASSIUM 4.5 mmol/L (3.5-5.1)
[2016-08-10 06:53] LABS: ACANTHOCYTES 1+; COMPLETE YES
[2016-08-10] MEDS: INSULIN ASPART 100 UNITS/ML 3 ML PEN SC SCH ×4 (07:00→20:26)
[2016-08-10] MEDS: ALBUT/IPRATROP 3MG/0.5MG NEB 3 ML VIAL INH SCH ×4 (07:31→19:28)
[2016-08-10] MEDS: DORNASE ALFA (2500U) 2.5MG/2.5ML INH SCH ×2 (07:32→19:28)
[2016-08-10] MEDS: ACETYLCYSTEINE 20% INHAL SOLN ***DISPENSED BY RESP. INH SCH ×2 (07:32→19:28)
--- NOTE | 2016-08-10 07:53 | DIAGNOSTIC IMAGING REPORT ---
SINGLE VIEW CHEST CLINICAL HISTORY: Dyspnea. FINDINGS: 2 AP, portable, upright chest radiographs are compared to study dated 08/09/16. The examination is degraded by portable technique and patient rotation. A pigtail catheter previously seen projecting over the left chest is no longer identified. The heart is enlarged and there is atherosclerotic calcification of the thoracic aorta. There is pulmonary vascular congestion with interstitial edema. This is similar appearance to yesterday. Small pleural effusions are noted and there is bibasilar consolidation. No pneumothorax is seen. The skeletal structures are osteopenic. The bony thorax is grossly intact. Fusion hardware is present in the lower cervical region. IMPRESSION: 1. Cardiomegaly with evidence of congestive failure and interstitial edema. This is unchanged from yesterday. 2. A pigtail catheter projecting over the left chest seen previously is no longer identified. 3. There are small pleural effusions and bibasilar consolidation, also similar to yesterday. Electronically signed by: Patrice Velásquez M.D. 08/10/2016 7:52 AM Dictated Date/Time: 08/10/2016 7:50 AM
[2016-08-10] MEDS: FUROSEMIDE INJ 20 MG in SYRINGE 0 ML IV SCH ×2 (08:28→15:51)
[2016-08-10] MEDS: SUCRALFATE 1 GM/10 ML UDC PO SCH ×4 (08:28→20:18)
[2016-08-10] MEDS: BUDESONIDE/FORMOTEROL FUMARATE 160/4.5 60 PUFFS/INHALER INH SCH ×2 (08:28→20:24)
[2016-08-10] MEDS: PAROXETINE 20 MG TAB PO SCH (08:29)
[2016-08-10] MEDS: GABAPENTIN 300 MG CAP PO SCH ×2 (08:29→20:19)
[2016-08-10] MEDS: SPIRONOLACTONE 25 MG TAB PO SCH (08:29)
[2016-08-10] MEDS: CYANOCOBALAMIN 500 MCG TAB (VIT B-12) PO SCH (08:30)
[2016-08-10] MEDS: PANTOprazole SOD 40 MG TAB PO SCH (08:30)
[2016-08-10] MEDS: DILTIAZEM HCL 30 MG TAB PO SCH ×3 (08:30→20:20)
[2016-08-10] MEDS: CARVEDILOL 25 MG TAB PO SCH ×3 (08:31→20:20)
[2016-08-10] MEDS: LORAZEPAM 1 MG TAB PO PRN (08:34)
[2016-08-10] MEDS: MoRPHine SULFATE 2 MG/ML CARP IV PRN ×3 (08:38→15:50)
[2016-08-10] MEDS ORDERED: INSULIN GLARGINE SOLOSTAR 100 UNITS/ML 3 ML PEN SC ONE (09:00)
[2016-08-10] MEDS: LEVOFLOXACIN 750 MG TAB PO SCH (11:00)
[2016-08-10] MEDS: MAGNESIUM HYDROXIDE SUSP 30 ML UDC PO PRN (11:32)
--- NOTE | 2016-08-10 11:44 | Pharmacy Progress Note ---
Glycemic Control: Progress Nt Date of Service Aug 10, 2016. Scope Glycemic Pharmacist consulted by Dr Davison on 07/31/16 for glycemic control and to write orders per [facility] inpatient glycemic control protocol. Objective Accuchecks BSG (last 24hrs): Test 08/09/16 16:41 08/09/16 20:20 08/10/16 02:38 08/10/16 05:36 Bedside Glucose 291 mg/dl (70-99) 234 mg/dl (70-99) 259 mg/dl (70-99) Random Glucose 214 mg/dl (70-99) Test 08/10/16 06:50 08/10/16 11:09 Bedside Glucose 231 mg/dl (70-99) 226 mg/dl (70-99) Laboratory Data (last 24hrs) Test 08/10/16 05:36 Anion Gap 4.0 mmol/L BUN/Creatinine Ratio 42.0 Blood Urea Nitrogen 27 mg/dl Creatinine 0.65 mg/dl Potassium Level 4.5 mmol/L Sodium Level 137 mmol/L White Blood Count 6.52 K/uL Red Blood Count 3.18 M/uL Hemoglobin 8.2 g/dL Hematocrit 26.8 % Mean Corpuscular Volume 84.3 fL Mean Corpuscular Hemoglobin 25.8 pg Mean Corpuscular Hemoglobin Concent 30.6 g/dl Platelet Count 171 K/uL Mean Platelet Volume 9.6 fL Neutrophils (%) (Auto) 72.6 % Lymphocytes (%) (Auto) 13.3 % Monocytes (%) (Auto) 12.4 % Eosinophils (%) (Auto) 1.2 % Basophils (%) (Auto) 0.0 % Neutrophils # (Auto) 4.73 K/uL Lymphocytes # (Auto) 0.87 K/uL Monocytes # (Auto) 0.81 K/uL Eosinophils # (Auto) 0.08 K/uL Basophils # (Auto) 0.00 K/uL HbA1c: Test 07/30/16 22:04 Hemoglobin A1c 7.6 % (4.5-5.6) H Recent Pertinent Medications Outpatient Anti-diabetic Regimen: * Lantus 24 units SQ q HS * Regular insulin sliding scale * Prednisone 10mg PO daily * A1c = 7.6 % 07/02/16 The patient is currently receiving: * Basal insulin: Lantus 15 units Q HS has been ordered (he received 5 units in the AM + 10 units in the PM yesterday) * Correctional Insulin: Novolog Correction per scale ACHS Goal Range: Low 120 mg/dL - High 160 mg/dL Correction Factor: 25 mg/dL/unit * Prandial insulin: Per carb ratio of 1 unit per 9 grams CHO consumed * Oral Agents: None currently Risk Factors for Insulin Resistance: * Infection: receiving Levofloxacin PO * Diet: ordered T2DM, AHA, Low Na+ diet and he appears to be tolerating this well Assessment & Plan ASSESSMENT: 08/09/16: * BSGs have ranged 81-284 over the last 24 hours * BSGs have been rather erratic and a clear pattern is not observed * Over the last 2 days he has required ~33-46 units per day while off steroids. * Post-prandial BSGs were a little better controlled yesterday. May achieve even better control with a lower goal range on Novolog order * Fasting AM hyperglycemia continue to occur, reason for this unclear - alida phenomenon? vs somogyi? Will check 0200 BSG tonight. * Given total daily insulin doses and higher home dose, will trial a larger basal insulin dose 08/10/16: * Glycemic control deteriorated yesterday, BSGs ranged 220-291 throughout the day * The reason for yesterday's hyperglycemia is unclear. In fact on 08/08 he ate more carbs and received less insulin with much better glycemic control??? * Fasting BSG again elevated this AM with 15 units of Lantus on board. * The current BSG pattern suggests basal insulin deficiency - will begin titrating the basal dose upwards. Home dose was 24 units Q HS. Would not doubt we will eventually reach this dose while admitted. * Will adjust the prandial insulin dose slightly to allow for a extra unit or two of insulin with meals. * 0200 AM BSG showed hyperglycemia, nocturnal hypoglycemia not noted, will check 0200 BSG one more night...fasting hyperglycemia may be due to alida phenomenon PLAN FOR INPATIENT GLYCEMIC CONTROL: * Increasing Lantus to 20 units SQ HS; gave 5 units with breakfast this AM. Hold dose if BSG less than 100 * Continuing correction factor of 25 mg/dl/unit * Changing carb ratio to 1 unit per 8 grams CHO consumed * Continue goal range of Low 120 mg/dL - High 160 mg/dL * Check BSG at 0200 tonight to screen for hypo- and hyperglycemia one more night * Please note that the plan above was derived based on current level of insulin resistance and hospital stress. These recommendations are appropriate for inpatient admission only. Plan of care upon discharge will need to be reassessed to avoid potential outpatient hypo/hyperglycemia. Thank you.
--- NOTE | 2016-08-10 11:45 | CARDIOLOGY PROGRESS NOTE ---
DATE: 08/10/2016 DATE: 08/10/2016. SUBJECTIVE: Mr. Carranza is resting comfortably in bed without complaints of chest pain or dyspnea. He is anxious for hospital discharge. OBJECTIVE: VITAL SIGNS: Blood pressure is 130/80 with an irregular pulse of 88. Respiratory rate is 22. The patient is afebrile at 36.4 degrees Celsius. Saturations 96% on 2 liters nasal cannula. NECK: Supple with full carotid upstrokes. There are no carotid bruits. Jugular venous pressure is flat at 90 degrees. There is no thyromegaly. CARDIOVASCULAR EXAMINATION: Reveals an irregular rhythm with distant heart sounds. No obvious murmurs. No S3. LUNGS: Note distant breath sounds but no rales, rhonchi, or wheezes. ABDOMEN: Obese without bruits. EXTREMITIES: Reveal intact radial artery pulses bilaterally. Trace pretibial edema is noted. LABORATORY DATA: CBC notes a hemoglobin of 8.2, hematocrit 26.8, white count 6.5, platelet count 171,000. Electrolytes note a sodium of 137, potassium 4.5, chloride 98, bicarbonate 35, BUN 27, creatinine 0.6, glucose 214. INR yesterday was 3.7. mobile application architect notes atrial fibrillation with a controlled ventricular response. IMPRESSION AND PLAN: 1. Respiratory failure -- multifactorial in origin, dramatically improved. 2. Chronic diastolic congestive heart failure -- compensated at this time. 3. Paroxysmal atrial fibrillation -- patient remains in atrial fibrillation on the monitor. Coumadin being adjusted. 4. Recurrent pleural effusions -- per pulmonary team. 5. Diabetes mellitus -- with diabetic neuropathy. 6. Peripheral vascular disease -- status post left great toe amputation. 7. History of cerebrovascular disease. 8. DNR LEVEL 5.
--- NOTE | 2016-08-10 14:09 | Family Medicine Progress Note ---
Progress Note Date of Service Aug 10, 2016. Subjective Pt evaluation today including: conversation w/ patient, physical exam, chart review, lab review Voiding: krueger catheter in place Patient was seen at the bedside. Patient continues to be Afib on tele. He continues to improved. Still having some difficulty with clearing secretions. Denies chest pain, SOB, nausea, vomiting, abdominal pain, constipation, diarrhea or any other additional problems. Constitutional: No fever, No weight loss Respiratory: + cough, + sputum, No shortness of breath, No wheezing Cardiovascular: No chest pain, No edema Abdomen: No constipation, No diarrhea, No nausea, No pain, No vomiting Musculoskeletal: No muscle pain Male : No dysuria Medications Current Inpatient Medications Medications (Trade) Dose Ordered Sig/Sujatha Route Start Time Stop Time Status Last Admin Dose Admin Acetaminophen (Tylenol Tab) 650 mg Q4H PRN PO 07/31/16 01:15 08/30/16 01:14 08/09/16 17:15 650 MG Al Hydrox/Mg Hydrox/Simethicone (Maalox Max Susp) 15 ml Q4H PRN PO 07/31/16 01:15 08/30/16 01:14 Ondansetron HCl (Zofran Inj) 4 mg Q6H PRN IV 07/31/16 01:15 08/30/16 01:14 Nitroglycerin (Nitrostat Tab) 0.4 mg UD PRN SL 07/31/16 01:15 08/30/16 01:14 08/06/16 10:46 0.4 MG Morphine Sulfate (MoRPHine SULFATE INJ) 2 mg Q30M PRN IV 07/31/16 01:15 08/14/16 01:14 08/10/16 11:31 2 MG Bisacodyl (Dulcolax Supp) 5 mg PRN PRN [place] 07/31/16 01:30 08/30/16 01:29 07/31/16 20:24 5 MG Cyanocobalamin (Vitamin B-12 Tab) 500 mcg DAILY PO 07/31/16 09:00 08/30/16 08:59 08/10/16 08:30 500 MCG Levothyroxine Sodium (Synthroid Tab) 25 mcg DAILYBB PO 07/31/16 06:00 08/30/16 05:59 08/10/16 06:15 25 MCG Magnesium Hydroxide (Milk Of Magnesia Susp) 30 ml HS PRN PO 07/31/16 01:30 08/30/16 01:29 08/10/16 11:32 30 ML Paroxetine HCl (pAXil TAB) 20 mg HS PO 07/31/16 21:00 08/30/16 20:59 08/10/16 08:29 20 MG Sodium Biphosphate/ Sodium Phosphate (Fleet Enema) 1 ml DAILY PRN [place] 07/31/16 01:30 08/30/16 01:29 Sucralfate (Carafate Susp) 1 gm ACHS PO 07/31/16 07:00 08/30/16 06:59 08/10/16 11:00 1 GM Tamsulosin HCl (Flomax Cap) 0.4 mg HS PO 07/31/16 21:00 08/30/16 20:59 08/09/16 19:53 0.4 MG Miscellaneous Information (Consult Glycemic Management Pharmacy) 1 ea UD PRN N/A 07/31/16 02:39 08/30/16 02:38 Miconazole Nitrate (Desenex Powder) 1 appln PRN PRN EXT 07/31/16 11:45 08/30/16 11:44 07/31/16 22:00 1 APPLN Pantoprazole Sodium (Protonix Tab) 40 mg QAM PO 08/01/16 09:00 08/31/16 08:59 08/10/16 08:30 40 MG Gabapentin (Neurontin Cap) 300 mg BID PO 07/31/16 21:00 08/30/16 20:59 08/10/16 08:29 300 MG Zolpidem Tartrate (Ambien Tab) 5 mg HS PRN PO 08/01/16 00:00 08/31/16 00:00 08/08/16 00:17 5 MG Lorazepam (Ativan Tab) 0.5 mg Q6 PRN PO 08/01/16 12:15 08/31/16 12:14 08/09/16 22:38 0.5 MG Acetylcysteine (Mucomyst 20% Inh Soln) 3 ml BIDR INH 08/01/16 20:00 08/31/16 19:59 08/10/16 07:32 3 ML Dornase Alan 2.5 ml 2.5 ml BIDR INH 08/02/16 20:00 09/01/16 19:59 08/10/16 07:32 2.5 ML Furosemide/Syringe (Lasix Inj/ Syringe) 2 ml @ 4 mls/min BID17 IV 08/02/16 17:30 09/01/16 17:29 Future hold 08/10/16 08:28 4 MLS/MIN Glucose (Glucose 40% Gel) UD PRN PO 08/02/16 22:15 09/01/16 22:14 Glucose (Glucose Chew Tab) 1 tabs UD PRN PO 08/02/16 22:15 09/01/16 22:14 Dextrose (Dextrose 50% 50ML Syringe) 50 ml UD PRN IV 08/02/16 22:15 09/01/16 22:14 Glucagon (Glucagon Inj) 1 mg UD PRN SQ 08/02/16 22:15 09/01/16 22:14 Carvedilol (Coreg Tab) 25 mg BID PO 08/03/16 09:00 09/02/16 08:59 08/10/16 08:31 25 MG Spironolactone (Aldactone Tab) 25 mg QAM PO 08/03/16 09:00 09/02/16 08:59 08/10/16 08:29 25 MG Docusate Sodium (coLACE CAP) 100 mg BID PRN PO 08/03/16 08:30 09/02/16 08:29 08/03/16 18:47 100 MG Lorazepam (Ativan Tab) 1 mg BID PRN PO 08/03/16 08:30 09/02/16 08:29 08/10/16 08:34 1 MG Insulin Aspart (novoLOG ASPART) SLIDING SCALE G... ACHS SC 08/03/16 16:00 09/02/16 15:59 08/10/16 11:00 13 UNITS Diltiazem HCl (Cardizem Tab) 30 mg TID PO 08/04/16 21:00 09/03/16 20:59 08/10/16 11:47 30 MG Albuterol/ Ipratropium (Duoneb) 3 ml Q4RWA INH 08/06/16 16:00 09/05/16 15:59 08/10/16 11:17 3 ML Budesonide/ Formoterol Fumarate (Symbicort 160/ 4.5 Inh) 2 puffs BID INH 08/06/16 21:00 09/05/16 20:59 08/10/16 08:28 2 PUFFS Albuterol/ Ipratropium (Duoneb) 3 ml Q2R PRN INH 08/06/16 13:45 09/05/16 13:44 Levofloxacin (Levaquin Tab) 750 mg DAILY@11 PO 08/09/16 11:00 08/16/16 10:59 08/10/16 11:00 750 MG Warfarin Sodium (Coumadin Tab) 2 mg DAILY@1600 PO 08/09/16 16:00 09/08/16 15:59 Insulin Glargine (Lantus Solostar Pen) 20 unit HS SC 08/10/16 21:00 09/09/16 20:59 Insulin Aspart (novoLOG ASPART) SLIDING SCALE G... TODAY@0200 ONCE SC 08/11/16 02:00 08/11/16 02:01 Objective Vital Signs Date Time Temp Pulse Resp B/P Pulse Ox O2 Delivery O2 Flow Rate FiO2 08/10/16 11:29 36.6 86 18 109/62 96 2.0 08/10/16 11:17 80 18 94 Nasal Cannula 2.0 08/10/16 08:00 96 Nasal Cannula 2.0 08/10/16 07:32 76 18 93 Nasal Cannula 2.0 08/10/16 07:18 36.4 88 22 129/82 96 2.0 08/10/16 04:38 36.7 86 18 120/77 95 Nasal Cannula 5.0 08/10/16 04:00 96 Nasal Cannula 5.0 08/10/16 00:00 96 Nasal Cannula 5.0 08/09/16 23:55 76 18 94 Nasal Cannula 2.0 08/09/16 23:52 36.9 84 22 117/66 96 Nasal Cannula 5.0 08/09/16 20:00 96 Nasal Cannula 5.0 08/09/16 19:39 36.3 75 20 111/67 94 Nasal Cannula 2.0 Humidified Oxygen 08/09/16 19:12 77 18 94 Nasal Cannula 2.0 08/09/16 16:00 95 Nasal Cannula 2.0 35 08/09/16 15:28 36.3 95 20 110/70 93 Room Air Physical Exam General Appearance: no apparent distress Neck: supple, trachea midline Respiratory/Chest: chest non-tender, no respiratory distress, no accessory muscle use, + decreased breath sounds (b/l bases), + crackles Cardiovascular: no murmur, + irregularly irregular Abdomen: normal bowel sounds, non tender, soft Extremities: non-tender, no pedal edema (trace of edema on the left leg), + pertinent finding (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, also don't have 4th digit of right hand) Neurologic/Psychiatric: alert, normal mood/affect, oriented x 3 Skin: normal color, warm/dry Laboratory Results Results Past 24 Hours Test 08/09/16 16:41 08/09/16 20:20 08/10/16 02:38 08/10/16 05:36 Range/Units Bedside Glucose 291 234 259 70-99 mg/dl White Blood Count 6.52 4.8-10.8 K/uL Red Blood Count 3.18 4.7-6.1 M/uL Hemoglobin 8.2 14.0-18.0 g/dL Hematocrit 26.8 42-52 % Mean Corpuscular Volume 84.3 80-100 fL Mean Corpuscular Hemoglobin 25.8 25-34 pg Mean Corpuscular Hemoglobin Concent 30.6 32-36 g/dl Platelet Count 171 130-400 K/uL Mean Platelet Volume 9.6 7.4-10.4 fL Neutrophils (%) (Auto) 72.6 % Lymphocytes (%) (Auto) 13.3 % Monocytes (%) (Auto) 12.4 % Eosinophils (%) (Auto) 1.2 % Basophils (%) (Auto) 0.0 % Neutrophils # (Auto) 4.73 1.4-6.5 K/uL Lymphocytes # (Auto) 0.87 1.2-3.4 K/uL Monocytes # (Auto) 0.81 0.11-0.59 K/uL Eosinophils # (Auto) 0.08 0-0.5 K/uL Basophils # (Auto) 0.00 0-0.2 K/uL RDW Standard Deviation 49.4 36.4-46.3 fL RDW Coefficient of Variation 16.0 11.5-14.5 % Immature Granulocyte % (Auto) 0.5 % Immature Granulocyte # (Auto) 0.03 0.00-0.02 K/uL Acanthocytes 1+ Sodium Level 137 136-145 mmol/L Potassium Level 4.5 3.5-5.1 mmol/L Chloride Level 98 98-107 mmol/L Carbon Dioxide Level 35 21-32 mmol/L Anion Gap 4.0 3-11 mmol/L Blood Urea Nitrogen 27 7-18 mg/dl Creatinine 0.65 0.60-1.40 mg/dl Est Creatinine Clear Calc Drug Dose 123.6 ml/min Estimated GFR () 112.7 Estimated GFR (Non- 97.2 BUN/Creatinine Ratio 42.0 10-20 Random Glucose 214 70-99 mg/dl Calcium Level 8.0 8.5-10.1 mg/dl Test 08/10/16 06:50 08/10/16 11:09 Range/Units Bedside Glucose 231 226 70-99 mg/dl Assessment and Plan 70 year old male presents with acute hypoxic respiratory failure secondary to recurrent bilateral pleural effusions, on background of COPD with 2L O2 at home , poorly controlled DM2, diastolic CHF, and hypothyroidism. Symptoms attributed to acute on chronic CHF. Concurrent management with diuresis, krueger and chest tube drainage. Patient refused Video Speech Swallow on 08/05/16. On 08/06/16 patient experienced an episode of crushing chest pain likely from demand ischemia 08/01 to hypoxia. Patient is otherwise improving clinically. Chest tube removed on 08/09/2016. 1. Acute on Chronic hypoxic respiratory failure - Patient is doing well clinically today. Patient is on 2LNC. Patient is using the incentive spirometer. Patient has completed his dose of Prednisone on Friday. - CXR: no change from yesterday imaging, continue to have b/l pleural effusion - Pt refused Video swallow study to rule out aspiration. - Per pulmonary - c/w Bipap at night with expiratory pressure of 5, inspiratory pressure of [address] rate of 10. - Continue 750mg PO Levaquin Day#6, s/p 2 days of Zosyn. - Continue DuoNeb INH Q4 Scheduled, Continue Symbicort BID and Pulmizyme BID. - Continue daily morning X-rays. 2. Acute on Chronic Diastolic CHF - No episodes of crushing chest pain since 08/06/16. - CHF protocols in place: fluid restriction limit to 1.5L, monitor I/O and weight change, assess hydration status. - Cardiology consulted- continue present management. - Continue IV Lasix 20mg BID and continue to monitor. - Continue Aldactone 25mg daily. 3. Anemia at baseline - Hemoglobin stable between 8 and 9. Pt has not had a BM in 48 hours. May be hemodilution from family providing hydration. FOBT negative. - Continue to monitor. - Per Pulmonary: consider transfusing with 2units PRBC. Follow. 4. Large left pleural effusion - s/p tube thoracostomy 08/03/16. - Chest tube removed on 08/09/16 5. Afib - HR controlled. - Last INR 3.7 - Continue to hold Coumadin - Continue Coreg 25mg BID and diltiazem 30mg TID - INR tomorrow am 6. Neuropathic pain 2/ DM2 - Continue Gabapentin 300mg BID - He has previously been on significantly higher doses previously, titrate up as necessary. 7. Chronic Right heel ulceration and Left Forearm Skin Tear - Wound care on board. 8. DM2 - Continue Lantus 20 unit - Aspart sliding scale with AC/HS BSG 9. Recent H/O severe GI bleed requiring blood transfusion - Continue Carafate 1g and Protonix 40mg daily 10. Depression - Continue Paroxetine 20mg daily 11. BPH - Continue tamsulosin 0.4mg daily. 12. DVT Prophylaxis - - Warfarin on hold given high INR (3.7) Dispo: Plan to discharge to SNF for rehab Reviewed: Pt Seen/Exam by Me History breathing better complains of foot pain off and on Constitutional: denies: fever Respiratory: negative: short of breath Cardiovascular: denies chest pain General Appearance: no apparent distress Respiratory: no respiratory distress, decreased breath sounds Cardiovascular: irregularly irregular Gastrointestinal: normal bowel sounds, non tender, soft Neurologic/Psychiatric: alert, other (oriented to place and person) Skin Characteristics: warm/dry Assessment/Plan I have reviewed the medical record and performed a history and physical examination of this patient today. I have discussed the case with Dr. Goodrich. The above note reflects my findings, conclusions, and recommendations.
[2016-08-10] MEDS: LORAZEPAM 0.5 MG TAB PO PRN ×2 (15:49→20:31)
[2016-08-10] MEDS: WARFARIN SOD 2 MG TAB PO SCH (15:51)
[2016-08-10] MEDS: TAMSULOSIN HCL 0.4 MG CAP PO SCH (20:19)
[2016-08-10] MEDS ORDERED: INSULIN GLARGINE SOLOSTAR 100 UNITS/ML 3 ML PEN SC SCH ×2 (21:00)
[2016-08-11] VITALS (14 sets, daily range): BP systolic 93–154; BP diastolic 54–77; PULSE 66–95; TEMP 36.4–36.7; O2SAT 90–100
[2016-08-11] MEDS ORDERED: INSULIN ASPART 100 UNITS/ML 3 ML PEN SC ONE (02:00)
[2016-08-11] MEDS: LEVOTHYROXINE 25 MCG TAB PO SCH (06:00)
[2016-08-11 06:14] LABS: HEMATOCRIT 25.9 % (42-52); MEAN CELL VOLUME 85.2 fL (80-100); MEAN CORPUSCULAR HEMOGLOBIN 26.3 pg (25-34); MEAN CORPUSCULAR HGB CONC 30.9 g/dl (32-36); MEAN PLATELET VOLUME 9.6 fL (7.4-10.4); PLATELET COUNT 174 K/uL (130-400); RED BLOOD COUNT 3.04 M/uL (4.7-6.1); WHITE BLOOD COUNT 6.75 K/uL (4.8-10.8)
[2016-08-11 06:20] LABS: INR 2.5 (0.9-1.1); PROTHROMBIN TIME (PATIENT) 27.5 SECONDS (9.0-12.0)
[2016-08-11 06:50] LABS: BUN/CREATININE RATIO 49.3 (10-20); CALCIUM 7.9 mg/dl (8.5-10.1); CREATININE 0.54 mg/dl (0.60-1.40); POTASSIUM 4.4 mmol/L (3.5-5.1)
[2016-08-11] MEDS: INSULIN ASPART 100 UNITS/ML 3 ML PEN SC SCH ×5 (07:00→23:42)
[2016-08-11] MEDS: ACETYLCYSTEINE 20% INHAL SOLN ***DISPENSED BY RESP. INH SCH ×2 (07:11→19:08)
[2016-08-11] MEDS: ALBUT/IPRATROP 3MG/0.5MG NEB 3 ML VIAL INH SCH ×4 (07:11→19:08)
[2016-08-11] MEDS: DORNASE ALFA (2500U) 2.5MG/2.5ML INH SCH ×2 (07:11→19:08)
--- NOTE | 2016-08-11 07:33 | DIAGNOSTIC IMAGING REPORT ---
CHEST ONE VIEW PORTABLE CLINICAL HISTORY: Shortness of breath. Dyspnea. COMPARISON STUDY: Chest radiograph August 10, 2016. FINDINGS: An anterior cervical spine fusion is incidentally noted. There is no pneumothorax. There are are bilateral pleural effusions, right larger left. Diffuse interstitial thickening and bilateral opacities persist, greater within the right lung. The findings have slightly progressed. IMPRESSION: 1. Persistent interstitial thickening which suggests pulmonary edema. 2. Bilateral pleural effusions, right larger than left. 3. Hazy right lung opacity which may reflect atelectasis, layering pleural fluid or consolidation. Electronically signed by: Moody Stewart M.D. 08/11/2016 7:31 AM Dictated Date/Time: 08/11/2016 7:30 AM
[2016-08-11] MEDS: LORAZEPAM 1 MG TAB PO PRN (07:44)
[2016-08-11] MEDS: MoRPHine SULFATE 2 MG/ML CARP IV PRN (07:45)
[2016-08-11] MEDS: BUDESONIDE/FORMOTEROL FUMARATE 160/4.5 60 PUFFS/INHALER INH SCH ×2 (07:46→20:08)
[2016-08-11] MEDS: FUROSEMIDE INJ 20 MG in SYRINGE 0 ML IV SCH ×2 (07:46→15:58)
[2016-08-11] MEDS: CYANOCOBALAMIN 500 MCG TAB (VIT B-12) PO SCH (07:47)
[2016-08-11] MEDS: DILTIAZEM HCL 30 MG TAB PO SCH ×3 (07:48→20:14)
[2016-08-11] MEDS: PANTOprazole SOD 40 MG TAB PO SCH (07:49)
[2016-08-11] MEDS: GABAPENTIN 300 MG CAP PO SCH ×2 (07:49→20:12)
[2016-08-11] MEDS: CARVEDILOL 25 MG TAB PO SCH ×2 (07:49→20:13)
[2016-08-11] MEDS: SPIRONOLACTONE 25 MG TAB PO SCH (07:50)
[2016-08-11] MEDS: SUCRALFATE 1 GM/10 ML UDC PO SCH ×4 (07:50→20:11)
[2016-08-11] MEDS: OXYCODONE HCL IR 5 MG TAB (IMMEDIATE RELEASE) PO PRN ×3 (10:58→20:18)
[2016-08-11] MEDS ORDERED: PAROXETINE 20 MG TAB PO ONE (11:15)
[2016-08-11] MEDS: LEVOFLOXACIN 750 MG TAB PO SCH (12:56)
--- NOTE | 2016-08-11 14:58 | Family Medicine Progress Note ---
Progress Note Date of Service Aug 11, 2016. Subjective Pt evaluation today including: conversation w/ patient, physical exam, chart review, lab review Voiding: krueger catheter in place Patient was seen at the bedside. No acute event overnight. Patient continues to be Afib on tele. He is tolerating food well. His breathing has improved. Complains of cough and neuropathic pain. Denies chest pain, nausea, vomiting, headache, dizziness, or any other additional complaints. Constitutional: No fever, No weight loss Respiratory: + cough, No shortness of breath, No sputum, No wheezing Cardiovascular: No chest pain, No edema Abdomen: No constipation, No diarrhea, No nausea, No pain, No vomiting Male : No dysuria Neurologic: + problem reported (complains of neuropathic pain on b/l upper and lower extremities. ) Skin: No rash Medications Current Inpatient Medications Medications (Trade) Dose Ordered Sig/Sujatha Route Start Time Stop Time Status Last Admin Dose Admin Acetaminophen (Tylenol Tab) 650 mg Q4H PRN PO 07/31/16 01:15 08/30/16 01:14 08/09/16 17:15 650 MG Al Hydrox/Mg Hydrox/Simethicone (Maalox Max Susp) 15 ml Q4H PRN PO 07/31/16 01:15 08/30/16 01:14 Ondansetron HCl (Zofran Inj) 4 mg Q6H PRN IV 07/31/16 01:15 08/30/16 01:14 Nitroglycerin (Nitrostat Tab) 0.4 mg UD PRN SL 07/31/16 01:15 08/30/16 01:14 08/06/16 10:46 0.4 MG Bisacodyl (Dulcolax Supp) 5 mg PRN PRN NH 07/31/16 01:30 08/30/16 01:29 07/31/16 20:24 5 MG Cyanocobalamin (Vitamin B-12 Tab) 500 mcg DAILY PO 07/31/16 09:00 08/30/16 08:59 08/11/16 07:47 500 MCG Levothyroxine Sodium (Synthroid Tab) 25 mcg DAILYBB PO 07/31/16 06:00 08/30/16 05:59 08/11/16 06:00 25 MCG Magnesium Hydroxide (Milk Of Magnesia Susp) 30 ml HS PRN PO 07/31/16 01:30 08/30/16 01:29 08/10/16 11:32 30 ML Sodium Biphosphate/ Sodium Phosphate (Fleet Enema) 1 ml DAILY PRN NH 07/31/16 01:30 08/30/16 01:29 Sucralfate (Carafate Susp) 1 gm ACHS PO 07/31/16 07:00 08/30/16 06:59 08/11/16 12:55 1 GM Tamsulosin HCl (Flomax Cap) 0.4 mg HS PO 07/31/16 21:00 08/30/16 20:59 08/10/16 20:19 0.4 MG Miscellaneous Information (Consult Glycemic Management Pharmacy) 1 ea UD PRN N/A 07/31/16 02:39 08/30/16 02:38 Miconazole Nitrate (Desenex Powder) 1 appln PRN PRN EXT 07/31/16 11:45 08/30/16 11:44 07/31/16 22:00 1 APPLN Pantoprazole Sodium (Protonix Tab) 40 mg QAM PO 08/01/16 09:00 08/31/16 08:59 08/11/16 07:49 40 MG Zolpidem Tartrate (Ambien Tab) 5 mg HS PRN PO 08/01/16 00:00 08/31/16 00:00 08/08/16 00:17 5 MG Lorazepam (Ativan Tab) 0.5 mg Q6 PRN PO 08/01/16 12:15 08/31/16 12:14 08/10/16 20:31 0.5 MG Acetylcysteine (Mucomyst 20% Inh Soln) 3 ml BIDR INH 08/01/16 20:00 08/31/16 19:59 08/11/16 07:11 3 ML Dornase Alan 2.5 ml 2.5 ml BIDR INH 08/02/16 20:00 09/01/16 19:59 08/11/16 07:11 2.5 ML Furosemide/Syringe (Lasix Inj/ Syringe) 2 ml @ 4 mls/min BID17 IV 08/02/16 17:30 09/01/16 17:29 Future hold 08/11/16 07:46 4 MLS/MIN Glucose (Glucose 40% Gel) UD PRN PO 08/02/16 22:15 09/01/16 22:14 Glucose (Glucose Chew Tab) 1 tabs UD PRN PO 08/02/16 22:15 09/01/16 22:14 Dextrose (Dextrose 50% 50ML Syringe) 50 ml UD PRN IV 08/02/16 22:15 09/01/16 22:14 Glucagon (Glucagon Inj) 1 mg UD PRN SQ 08/02/16 22:15 09/01/16 22:14 Carvedilol (Coreg Tab) 25 mg BID PO 08/03/16 09:00 09/02/16 08:59 08/11/16 07:49 25 MG Spironolactone (Aldactone Tab) 25 mg QAM PO 08/03/16 09:00 09/02/16 08:59 08/11/16 07:50 25 MG Docusate Sodium (coLACE CAP) 100 mg BID PRN PO 08/03/16 08:30 09/02/16 08:29 08/03/16 18:47 100 MG Insulin Aspart (novoLOG ASPART) SLIDING SCALE G... ACHS SC 08/03/16 16:00 09/02/16 15:59 08/11/16 11:00 7 UNITS Diltiazem HCl (Cardizem Tab) 30 mg TID PO 08/04/16 21:00 09/03/16 20:59 08/11/16 12:56 30 MG Albuterol/ Ipratropium (Duoneb) 3 ml Q4RWA INH 08/06/16 16:00 09/05/16 15:59 08/11/16 07:11 3 ML Budesonide/ Formoterol Fumarate (Symbicort 160/ 4.5 Inh) 2 puffs BID INH 08/06/16 21:00 09/05/16 20:59 08/11/16 07:46 2 PUFFS Albuterol/ Ipratropium (Duoneb) 3 ml Q2R PRN INH 08/06/16 13:45 09/05/16 13:44 Levofloxacin (Levaquin Tab) 750 mg DAILY@11 PO 08/09/16 11:00 08/16/16 10:59 08/11/16 12:56 750 MG Warfarin Sodium (Coumadin Tab) 2 mg DAILY@1600 PO 08/09/16 16:00 09/08/16 15:59 08/10/16 15:51 2 MG Insulin Glargine (Lantus Solostar Pen) 20 unit HS SC 08/10/16 21:00 09/09/16 20:59 08/10/16 20:25 20 UNIT Gabapentin (Neurontin Cap) 600 mg BID PO 08/11/16 21:00 09/10/16 20:59 Paroxetine HCl (pAXil TAB) 20 mg BID PO 08/11/16 21:00 09/10/16 20:59 Oxycodone HCl (Roxicodone Immediate Rel Tab) 5 mg Q4H PRN PO 08/11/16 10:15 08/25/16 10:14 08/11/16 10:58 5 MG Objective Vital Signs Date Time Temp Pulse Resp B/P Pulse Ox O2 Delivery O2 Flow Rate FiO2 08/11/16 12:08 36.6 73 18 109/73 92 Nasal Cannula 2.0 08/11/16 12:00 92 Nasal Cannula 2.0 08/11/16 10:15 36.7 74 22 98/76 94 Nasal Cannula 3.0 08/11/16 08:00 94 Nasal Cannula 3.0 08/11/16 07:35 36.4 84 24 117/76 90 Nasal Cannula 2.0 08/11/16 07:12 77 18 93 Nasal Cannula 2.0 08/11/16 04:05 Nasal Cannula 2.0 08/11/16 04:02 36.5 78 18 121/70 92 Nasal Cannula 2.0 08/11/16 00:00 Nasal Cannula 2.0 08/10/16 23:28 36.8 83 20 108/65 96 Room Air 2.0 08/10/16 20:00 Nasal Cannula 2.0 08/10/16 19:29 82 18 95 Nasal Cannula 2.0 08/10/16 19:28 36.7 84 18 116/68 94 Nasal Cannula 2.0 08/10/16 16:00 Nasal Cannula 2.0 08/10/16 15:53 36.6 75 18 111/65 95 Nasal Cannula 08/10/16 15:21 65 18 92 Nasal Cannula 2.0 Physical Exam General Appearance: no apparent distress Neck: supple, trachea midline Respiratory/Chest: chest non-tender, no respiratory distress, + decreased breath sounds (b/l bases), + crackles Cardiovascular: no edema, + irregularly irregular Abdomen: normal bowel sounds, non tender, soft Extremities: non-tender, no pedal edema, + pertinent finding (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, also don't have 4th digit of right hand) Neurologic/Psychiatric: alert, normal mood/affect, oriented x 3 Skin: normal color, warm/dry Laboratory Results Results Past 24 Hours Test 08/10/16 16:22 08/10/16 20:04 08/11/16 02:39 08/11/16 05:10 Range/Units Bedside Glucose 204 259 391 70-99 mg/dl White Blood Count 6.75 4.8-10.8 K/uL Red Blood Count 3.04 4.7-6.1 M/uL Hemoglobin 8.0 14.0-18.0 g/dL Hematocrit 25.9 42-52 % Mean Corpuscular Volume 85.2 80-100 fL Mean Corpuscular Hemoglobin 26.3 25-34 pg Mean Corpuscular Hemoglobin Concent 30.9 32-36 g/dl RDW Standard Deviation 51.3 36.4-46.3 fL RDW Coefficient of Variation 16.5 11.5-14.5 % Platelet Count 174 130-400 K/uL Mean Platelet Volume 9.6 7.4-10.4 fL Prothrombin Time 27.5 9.0-12.0 SECONDS Prothromb Time International Ratio 2.5 0.9-1.1 Sodium Level 138 136-145 mmol/L Potassium Level 4.4 3.5-5.1 mmol/L Chloride Level 99 98-107 mmol/L Carbon Dioxide Level 32 21-32 mmol/L Anion Gap 7.0 3-11 mmol/L Blood Urea Nitrogen 27 7-18 mg/dl Creatinine 0.54 0.60-1.40 mg/dl Est Creatinine Clear Calc Drug Dose 150.1 ml/min Estimated GFR () 121.6 Estimated GFR (Non- 104.9 BUN/Creatinine Ratio 49.3 10-20 Random Glucose 106 70-99 mg/dl Calcium Level 7.9 8.5-10.1 mg/dl Test 08/11/16 06:39 08/11/16 11:13 Range/Units Bedside Glucose 105 79 70-99 mg/dl Assessment and Plan 70 year old male presents with acute hypoxic respiratory failure secondary to recurrent bilateral pleural effusions, on background of COPD with 2L O2 at home , poorly controlled DM2, diastolic CHF, and hypothyroidism. Symptoms attributed to acute on chronic CHF. Concurrent management with diuresis, krueger and chest tube drainage. Patient refused Video Speech Swallow on 08/05/16. On 08/06/16 patient experienced an episode of crushing chest pain likely from demand ischemia 08/01 to hypoxia. Patient is otherwise improving clinically. Chest tube removed on 08/09/2016. Gabapentin is increased to 600mg BID given complaining of increased neuropathic pain. Also Paroxetine 20mg changed to BID given agitation. Morphine is d/laura and started Oxycodan IR 5mg for pain prn. (06/15). 1. Acute on Chronic hypoxic respiratory failure - Patient is doing well clinically today. Patient is on 2LNC. Patient is using the incentive spirometer. - CXR (08/11/16): Bilateral pleural effusions, right larger than left. - Pt refused Video swallow study to rule out aspiration. - Per pulmonary - c/w Bipap at night with expiratory pressure of 5, inspiratory pressure of [address] rate of 10. - Continue 750mg PO Levaquin Day#7, s/p 2 days of Zosyn. - Continue DuoNeb INH Q4 Scheduled, Continue Symbicort BID and Pulmizyme BID. 2. Acute on Chronic Diastolic CHF - No episodes of crushing chest pain since 08/06/16. - CHF protocols in place: fluid restriction limit to 1.5L, monitor I/O and weight change, assess hydration status. - Cardiology consulted- continue present management. - Continue IV Lasix 20mg BID and continue to monitor. - Continue Aldactone 25mg daily. 3. Anemia - Hemoglobin stable between 8 and 9. May be hemodilution from family providing hydration. FOBT negative. - Continue to monitor. - Per Pulmonary: consider transfusing with 2units PRBC. 4. Large left pleural effusion - s/p tube thoracostomy 08/03/16. - Chest tube removed on 08/09/16 5. Afib with RVR - Last INR 2.5 - Resume Coumadin 2mg - Continue Coreg 25mg BID and diltiazem 30mg TID - INR tomorrow am 6. Neuropathic pain / DM2 - Increased Gabapentin to 600mg BID - He has previously been on significantly higher doses previously, titrate up as necessary. 7. Chronic Right heel ulceration and Left Forearm Skin Tear - Wound care on board. 8. DM2 - Continue Lantus 20 unit - Aspart sliding scale with AC/HS BSG 9. Recent H/O severe GI bleed requiring blood transfusion - Continue Carafate 1g and Protonix 40mg daily 10. Depression - Increase Paroxetine 20mg to BID 11. BPH - Continue tamsulosin 0.4mg daily. 12. DVT Prophylaxis - - Coumadin 2mg 13. Code Status - DNR Dispo: Patient will be discharged to SNF for rehab Reviewed: Pt Seen/Exam by Me History seen this am - comfortable. later reported both feet pain Constitutional: denies: fever Respiratory: negative: short of breath Cardiovascular: denies chest pain General Appearance: no apparent distress Respiratory: no respiratory distress, decreased breath sounds Cardiovascular: irregularly irregular Gastrointestinal: normal bowel sounds, non tender, soft Neurologic/Psychiatric: alert, other (oriented to place and person) Skin Characteristics: warm/dry Assessment/Plan I have reviewed the medical record and performed a history and physical examination of this patient today. I have discussed the case with Dr. Goodrich. The above note reflects my findings, conclusions, and recommendations. increase neurontin increase paxil anticipate d/c to snf on friday if arrangements done
--- NOTE | 2016-08-11 15:20 | Pharmacy Progress Note ---
Glycemic Control: Progress Nt Date of Service Aug 11, 2016. Scope Glycemic Pharmacist consulted by Dr Davison on 07/31/16 for glycemic control and to write orders per [facility] inpatient glycemic control protocol. Objective Accuchecks BSG (last 24hrs): Test 08/10/16 16:22 08/10/16 20:04 08/11/16 02:39 08/11/16 05:10 Bedside Glucose 204 mg/dl (70-99) 259 mg/dl (70-99) 391 mg/dl (70-99) Random Glucose 106 mg/dl (70-99) Test 08/11/16 06:39 08/11/16 11:13 Bedside Glucose 105 mg/dl (70-99) 79 mg/dl (70-99) Laboratory Data (last 24hrs) Test 08/11/16 05:10 Anion Gap 7.0 mmol/L BUN/Creatinine Ratio 49.3 Blood Urea Nitrogen 27 mg/dl Creatinine 0.54 mg/dl Potassium Level 4.4 mmol/L Sodium Level 138 mmol/L White Blood Count 6.75 K/uL HbA1c: Test 07/30/16 22:04 Hemoglobin A1c 7.6 % (4.5-5.6) H Recent Pertinent Medications Outpatient Anti-diabetic Regimen: * Lantus 24 units SQ q HS * Regular insulin sliding scale * he was likely non-compliant given reported missed insulin doses secondary to poor dexterity secondary to neuropathy * Prednisone 10mg PO daily * A1c = 7.6 % 07/02/16 The patient is currently receiving: * Basal insulin: Lantus 20 units Q HS has been ordered * Correctional Insulin: Novolog Correction per scale ACHS Goal Range: Low 110 mg/dL - High 140 mg/dL Correction Factor: 25 mg/dL/unit * Prandial insulin: Per carb ratio of 1 unit per 8 grams CHO consumed * Oral Agents: None currently Risk Factors for Insulin Resistance: * Infection: receiving Levofloxacin PO * Diet: ordered T2DM, AHA, Low Na+ diet and he appears to be tolerating this well Assessment & Plan ASSESSMENT: 08/09/16: * BSGs have ranged 81-284 over the last 24 hours * BSGs have been rather erratic and a clear pattern is not observed * Over the last 2 days he has required ~33-46 units per day while off steroids. * Post-prandial BSGs were a little better controlled yesterday. May achieve even better control with a lower goal range on Novolog order * Fasting AM hyperglycemia continue to occur, reason for this unclear - alida phenomenon? vs somogyi? Will check 0200 BSG tonight. * Given total daily insulin doses and higher home dose, will trial a larger basal insulin dose 08/10/16: * Glycemic control deteriorated yesterday, BSGs ranged 220-291 throughout the day * The reason for yesterday's hyperglycemia is unclear. In fact on 08/08 he ate more carbs and received less insulin with much better glycemic control??? * Fasting BSG again elevated this AM with 15 units of Lantus on board. * The current BSG pattern suggests basal insulin deficiency - will begin titrating the basal dose upwards. Home dose was 24 units Q HS. Would not doubt we will eventually reach this dose while admitted. * Will adjust the prandial insulin dose slightly to allow for a extra unit or two of insulin with meals. * 0200 AM BSG showed hyperglycemia, nocturnal hypoglycemia not noted, will check 0200 BSG one more night...fasting hyperglycemia may be due to alida phenomenon 08/11/16: * Patient's glycemic control was much worse yesterday - BSGs ranged 204-391 * This pattern was difficult to explain * I contacted the patient's RN today to determine if there was any possibility the patient may have been snacking unknowingly yesterday. She states the patient's daughter did visit yesterday and could have brought him something to eat. The patient is reported to be constantly hungry. When the daughter arrived today the RN discovered she was feeding him mashed potatoes and other food she had brought from home. I suspect this is what has led to the patient' s worsening control yesterday. * If we can better control his diet, he will likely require less insulin than what is currently ordered. His BSGs today are running low and I feel the need to decrease his doses (the daughter had not visited until the afternoon today). PLAN FOR INPATIENT GLYCEMIC CONTROL: * Decrease Lantus to 17 units SQ HS. Hold dose if BSG less than 100 * Continuing correction factor of 25 mg/dl/unit * Changing carb ratio to 1 unit per 10 grams CHO consumed * Changing goal range to Low 120 mg/dL - High 160 mg/dL to allow for a greater buffer against hypoglycemia * Please note that the plan above was derived based on current level of insulin resistance and hospital stress. These recommendations are appropriate for inpatient admission only. Plan of care upon discharge will need to be reassessed to avoid potential outpatient hypo/hyperglycemia. Thank you.
[2016-08-11] MEDS: WARFARIN SOD 2 MG TAB PO SCH (15:58)
[2016-08-11] MEDS: PAROXETINE 20 MG TAB PO SCH (20:12)
[2016-08-11] MEDS: TAMSULOSIN HCL 0.4 MG CAP PO SCH (20:13)
[2016-08-11] MEDS: LORAZEPAM 0.5 MG TAB PO PRN (20:18)
[2016-08-11] MEDS: INSULIN GLARGINE SOLOSTAR 100 UNITS/ML 3 ML PEN SC SCH (20:37)
[2016-08-11] MEDS: ZOLPIDEM TARTRATE 5 MG TAB PO PRN (23:48)
[2016-08-12] VITALS (15 sets, daily range): BP systolic 110–131; BP diastolic 67–85; PULSE 63–104; TEMP 36.3–36.8; O2SAT 92–100; BMI 29.3
[2016-08-12] MEDS: OXYCODONE HCL IR 5 MG TAB (IMMEDIATE RELEASE) PO PRN ×3 (03:54→18:57)
[2016-08-12] MEDS: INSULIN ASPART 100 UNITS/ML 3 ML PEN SC SCH ×5 (04:00→20:57)
[2016-08-12] MEDS: LEVOTHYROXINE 25 MCG TAB PO SCH (05:23)
[2016-08-12 06:13] LABS: BUN/CREATININE RATIO 47.3 (10-20); CALCIUM 7.7 mg/dl (8.5-10.1); CREATININE 0.61 mg/dl (0.60-1.40); POTASSIUM 4.9 mmol/L (3.5-5.1)
[2016-08-12] MEDS: ALBUT/IPRATROP 3MG/0.5MG NEB 3 ML VIAL INH SCH ×4 (07:04→19:42)
[2016-08-12] MEDS: DORNASE ALFA (2500U) 2.5MG/2.5ML INH SCH ×2 (07:04→19:42)
[2016-08-12] MEDS: ACETYLCYSTEINE 20% INHAL SOLN ***DISPENSED BY RESP. INH SCH ×2 (07:04→19:42)
[2016-08-12] MEDS: SUCRALFATE 1 GM/10 ML UDC PO SCH ×4 (08:54→20:49)
[2016-08-12] MEDS: BUDESONIDE/FORMOTEROL FUMARATE 160/4.5 60 PUFFS/INHALER INH SCH ×2 (08:54→20:49)
[2016-08-12] MEDS: CYANOCOBALAMIN 500 MCG TAB (VIT B-12) PO SCH (08:55)
[2016-08-12] MEDS: PAROXETINE 20 MG TAB PO SCH ×2 (08:55→20:50)
[2016-08-12] MEDS: FUROSEMIDE INJ 20 MG in SYRINGE 0 ML IV SCH ×2 (08:55→15:37)
[2016-08-12] MEDS: GABAPENTIN 300 MG CAP PO SCH ×2 (08:55→20:50)
[2016-08-12] MEDS: SPIRONOLACTONE 25 MG TAB PO SCH (08:56)
[2016-08-12] MEDS: DILTIAZEM HCL 30 MG TAB PO SCH ×2 (08:56→14:00)
[2016-08-12] MEDS: CARVEDILOL 25 MG TAB PO SCH ×2 (08:56→20:52)
[2016-08-12] MEDS: PANTOprazole SOD 40 MG TAB PO SCH (08:57)
[2016-08-12 12:00] LABS: ARTERIAL BLD GAS O2 SATURATION 89.9 % (90-95); ARTERIAL BLOOD GAS BASE EXCESS 10.3 mEq/L (-9-1.8); ARTERIAL BLOOD GAS HCO3 36 mmol/L (19-24); ARTERIAL BLOOD GAS PO2 66 mm/Hg (80-95); ARTERIAL BLOOD GAS pH 7.43 (7.35-7.45)
[2016-08-12 12:02] LABS: ALLEN TEST POSITIVE (POS); O2 ADMINISTRATION 2.5 LITERS
[2016-08-12] MEDS: LEVOFLOXACIN 750 MG TAB PO SCH (12:59)
--- NOTE | 2016-08-12 13:39 | Pharmacy Progress Note ---
Glycemic: Assessment & Plan Date of Service Aug 12, 2016. Assessment & Plan Outpatient Anti-diabetic Regimen: * Lantus 24 units SQ q HS * Regular insulin sliding scale * he was likely non-compliant given reported missed insulin doses secondary to poor dexterity secondary to neuropathy * Prednisone 10mg PO daily * A1c = 7.6 % 07/02/16 ASSESSMENT: 08/09/16: * BSGs have ranged 81-284 over the last 24 hours * BSGs have been rather erratic and a clear pattern is not observed * Over the last 2 days he has required ~33-46 units per day while off steroids. * Post-prandial BSGs were a little better controlled yesterday. May achieve even better control with a lower goal range on Novolog order * Fasting AM hyperglycemia continue to occur, reason for this unclear - alida phenomenon? vs somogyi? Will check 0200 BSG tonight. * Given total daily insulin doses and higher home dose, will trial a larger basal insulin dose 08/10/16: * Glycemic control deteriorated yesterday, BSGs ranged 220-291 throughout the day * The reason for yesterday's hyperglycemia is unclear. In fact on 08/08 he ate more carbs and received less insulin with much better glycemic control??? * Fasting BSG again elevated this AM with 15 units of Lantus on board. * The current BSG pattern suggests basal insulin deficiency - will begin titrating the basal dose upwards. Home dose was 24 units Q HS. Would not doubt we will eventually reach this dose while admitted. * Will adjust the prandial insulin dose slightly to allow for a extra unit or two of insulin with meals. * 0200 AM BSG showed hyperglycemia, nocturnal hypoglycemia not noted, will check 0200 BSG one more night...fasting hyperglycemia may be due to alida phenomenon 08/11/16: * Patient's glycemic control was much worse yesterday - BSGs ranged 204-391 * This pattern was difficult to explain * I contacted the patient's RN today to determine if there was any possibility the patient may have been snacking unknowingly yesterday. She states the patient's daughter did visit yesterday and could have brought him something to eat. The patient is reported to be constantly hungry. When the daughter arrived today the RN discovered she was feeding him mashed potatoes and other food she had brought from home. I suspect this is what has led to the patient' s worsening control yesterday. * If we can better control his diet, he will likely require less insulin than what is currently ordered. His BSGs today are running low and I feel the need to decrease his doses (the daughter had not visited until the afternoon today). 06/11/17 * Patient had an episode of severe hyperglycemia last night (BSG 449), but BSGs have been relatively reasonable since then. Pre-lunch BSG elevated (195) but hesitate to increase insulin at this time as BSGs have been so erratic. * It is difficult to adequately control BSGs as patient's family members are bringing him in food to eat, which is not covered for appropriately. * No changes at this time and will re-assess tomorrow. * Expect that patient is to be discharged to SNF in the next day or so? PLAN FOR INPATIENT GLYCEMIC CONTROL: * Lantus 17 units SQ HS. Hold dose if BSG less than 100 * Continue correction factor of 25 mg/dl/unit * Continue carb ratio of 1 unit per 10 grams CHO consumed * Continue goal range of Low 120 mg/dL - High 160 mg/dL to allow for a greater buffer against hypoglycemia * Continue accu-checks ACHS plus 0000 and 0400, in an attempt to control for elevated BSGs d/t sporadic/unpredictable carb intake * Please note that the plan above was derived based on current level of insulin resistance and hospital stress. These recommendations are appropriate for inpatient admission only. Plan of care upon discharge will need to be reassessed to avoid potential outpatient hypo/hyperglycemia. Thank you.
[2016-08-12] MEDS: WARFARIN SOD 2 MG TAB PO SCH (15:36)
--- NOTE | 2016-08-12 19:16 | Family Medicine Progress Note ---
Progress Note Date of Service Aug 12, 2016. Subjective Pt evaluation today including: conversation w/ patient, conversation w/ family , physical exam, chart review, lab review, review of studies, review of inpatient medication list Pain: denies pain PO Intake: adequate Voiding: krueger catheter in place Pt continues to complaint of dry cough and SOB. denies CP. Per nurse, Pt has been more lethargic although he had recently gotten Ambien. No fevers/chills, abdominal pain, N/V Constitutional: + fatigue, No chills, No fever Respiratory: + cough (dry), + shortness of breath, No sputum Cardiovascular: No chest pain, No claudication, No edema, No palpitations Abdomen: No constipation, No diarrhea, No nausea, No pain, No vomiting Skin: No itch, No rash Medications Current Inpatient Medications Medications (Trade) Dose Ordered Sig/Sujatha Route Start Time Stop Time Status Last Admin Dose Admin Acetaminophen (Tylenol Tab) 650 mg Q4H PRN PO 07/31/16 01:15 08/30/16 01:14 08/09/16 17:15 650 MG Al Hydrox/Mg Hydrox/Simethicone (Maalox Max Susp) 15 ml Q4H PRN PO 07/31/16 01:15 08/30/16 01:14 Ondansetron HCl (Zofran Inj) 4 mg Q6H PRN IV 07/31/16 01:15 08/30/16 01:14 Nitroglycerin (Nitrostat Tab) 0.4 mg UD PRN SL 07/31/16 01:15 08/30/16 01:14 08/06/16 10:46 0.4 MG Bisacodyl (Dulcolax Supp) 5 mg PRN PRN [place] 07/31/16 01:30 08/30/16 01:29 07/31/16 20:24 5 MG Cyanocobalamin (Vitamin B-12 Tab) 500 mcg DAILY PO 07/31/16 09:00 08/30/16 08:59 08/12/16 08:55 500 MCG Levothyroxine Sodium (Synthroid Tab) 25 mcg DAILYBB PO 07/31/16 06:00 08/30/16 05:59 08/12/16 05:23 25 MCG Magnesium Hydroxide (Milk Of Magnesia Susp) 30 ml HS PRN PO 07/31/16 01:30 3/3/17 01:29 08/10/16 11:32 30 ML Sodium Biphosphate/ Sodium Phosphate (Fleet Enema) 1 ml DAILY PRN [place] 07/31/16 01:30 08/30/16 01:29 Sucralfate (Carafate Susp) 1 gm ACHS PO 07/31/16 07:00 08/30/16 06:59 08/12/16 15:36 1 GM Tamsulosin HCl (Flomax Cap) 0.4 mg HS PO 07/31/16 21:00 08/30/16 20:59 08/11/16 20:13 0.4 MG Miscellaneous Information (Consult Glycemic Management Pharmacy) 1 ea UD PRN N/A 07/31/16 02:39 08/30/16 02:38 Miconazole Nitrate (Desenex Powder) 1 appln PRN PRN EXT 07/31/16 11:45 08/30/16 11:44 07/31/16 22:00 1 APPLN Pantoprazole Sodium (Protonix Tab) 40 mg QAM PO 08/01/16 09:00 08/31/16 08:59 08/12/16 08:57 40 MG Lorazepam (Ativan Tab) 0.5 mg Q6 PRN PO 08/01/16 12:15 08/31/16 12:14 08/11/16 20:18 0.5 MG Acetylcysteine (Mucomyst 20% Inh Soln) 3 ml BIDR INH 08/01/16 20:00 08/31/16 19:59 08/12/16 07:04 3 ML Dornase Alan 2.5 ml 2.5 ml BIDR INH 08/02/16 20:00 09/01/16 19:59 08/12/16 07:04 2.5 ML Furosemide/Syringe (Lasix Inj/ Syringe) 2 ml @ 4 mls/min BID17 IV 08/02/16 17:30 09/01/16 17:29 Future hold 08/12/16 15:37 4 MLS/MIN Glucose (Glucose 40% Gel) UD PRN PO 08/02/16 22:15 09/01/16 22:14 Glucose (Glucose Chew Tab) 1 tabs UD PRN PO 08/02/16 22:15 09/01/16 22:14 Dextrose (Dextrose 50% 50ML Syringe) 50 ml UD PRN IV 08/02/16 22:15 09/01/16 22:14 Glucagon (Glucagon Inj) 1 mg UD PRN SQ 08/02/16 22:15 09/01/16 22:14 Carvedilol (Coreg Tab) 25 mg BID PO 08/03/16 09:00 09/02/16 08:59 08/12/16 08:56 25 MG Spironolactone (Aldactone Tab) 25 mg QAM PO 08/03/16 09:00 09/02/16 08:59 08/12/16 08:56 25 MG Docusate Sodium (coLACE CAP) 100 mg BID PRN PO 08/03/16 08:30 09/02/16 08:29 08/03/16 18:47 100 MG Insulin Aspart (novoLOG ASPART) SLIDING SCALE G... ACHS SC 08/03/16 16:00 09/02/16 15:59 08/12/16 16:15 6 UNITS Diltiazem HCl (Cardizem Tab) 30 mg TID PO 08/04/16 21:00 09/03/16 20:59 Future Hold 08/12/16 08:56 30 MG Albuterol/ Ipratropium (Duoneb) 3 ml Q4RWA INH 08/06/16 16:00 09/05/16 15:59 08/12/16 14:57 3 ML Budesonide/ Formoterol Fumarate (Symbicort 160/ 4.5 Inh) 2 puffs BID INH 08/06/16 21:00 09/05/16 20:59 08/12/16 08:54 2 PUFFS Albuterol/ Ipratropium (Duoneb) 3 ml Q2R PRN INH 08/06/16 13:45 09/05/16 13:44 Levofloxacin (Levaquin Tab) 750 mg DAILY@11 PO 08/09/16 11:00 08/16/16 10:59 08/12/16 12:59 750 MG Warfarin Sodium (Coumadin Tab) 2 mg DAILY@1600 PO 08/09/16 16:00 09/08/16 15:59 08/12/16 15:36 2 MG Paroxetine HCl (pAXil TAB) 20 mg BID PO 08/11/16 21:00 09/10/16 20:59 08/12/16 08:55 20 MG Oxycodone HCl (Roxicodone Immediate Rel Tab) 5 mg Q4H PRN PO 08/11/16 10:15 08/25/16 10:14 08/12/16 18:57 5 MG Insulin Glargine (Lantus Solostar Pen) 17 unit HS SC 08/11/16 21:00 09/10/16 20:59 08/11/16 20:37 17 UNIT Insulin Aspart (novoLOG ASPART) SLIDING SCALE G... 0000,0400 SC 08/12/16 00:00 09/11/16 00:00 08/11/16 23:42 2 UNITS Gabapentin (Neurontin Cap) 300 mg BID PO 08/12/16 21:00 09/11/16 20:59 Guaifenesin (Mucinex Contr Rel Tab) 1,200 mg Q12 PO 08/12/16 21:00 09/11/16 20:59 Objective Vital Signs Date Time Temp Pulse Resp B/P Pulse Ox O2 Delivery O2 Flow Rate FiO2 08/12/16 16:00 Nasal Cannula 2.0 08/12/16 15:42 36.4 75 20 127/85 100 Nasal Cannula 2.0 08/12/16 14:57 71 20 92 Nasal Cannula 2.0 08/12/16 12:00 Nasal Cannula 2.0 08/12/16 11:34 36.4 63 20 110/79 95 Nasal Cannula 3.0 08/12/16 11:07 69 18 93 Nasal Cannula 2.0 08/12/16 08:00 96 Nasal Cannula 2.5 08/12/16 07:57 36.8 72 22 119/67 96 Nasal Cannula 3.0 08/12/16 07:04 66 22 92 Nasal Cannula 2.0 08/12/16 04:00 94 Nasal Cannula 2.0 08/12/16 03:46 36.4 74 19 112/73 94 Nasal Cannula 2.0 08/12/16 00:05 36.5 104 19 118/74 97 Nasal Cannula 2.0 08/11/16 23:59 97 Nasal Cannula 2.0 08/11/16 20:10 95 124/77 91 08/11/16 19:45 36.6 89 21 154/74 100 Nasal Cannula 2.0 08/11/16 19:40 Nasal Cannula Physical Exam General Appearance: WD/WN, no apparent distress Eyes: normal inspection, PERRL, EOMI Neck: supple, no adenopathy Respiratory/Chest: chest non-tender, no respiratory distress, no accessory muscle use, + crackles (SHOLA) Cardiovascular: regular rate, rhythm, no murmur Abdomen: normal bowel sounds, non tender, soft Extremities: no pedal edema, no calf tenderness Neurologic/Psychiatric: alert, + disoriented (Oriented x2 ( person, place)) Skin: normal color, warm/dry Laboratory Results Results Past 24 Hours Test 08/11/16 20:24 08/11/16 21:02 08/11/16 21:55 08/11/16 23:38 Range/Units Bedside Glucose 449 435 351 222 70-99 mg/dl Test 08/12/16 03:47 08/12/16 05:09 08/12/16 06:45 08/12/16 11:21 Range/Units Bedside Glucose 129 146 195 70-99 mg/dl Sodium Level 139 136-145 mmol/L Potassium Level 4.9 3.5-5.1 mmol/L Chloride Level 100 98-107 mmol/L Carbon Dioxide Level 35 21-32 mmol/L Anion Gap 4.0 3-11 mmol/L Blood Urea Nitrogen 29 7-18 mg/dl Creatinine 0.61 0.60-1.40 mg/dl Est Creatinine Clear Calc Drug Dose 132.8 ml/min Estimated GFR () 115.6 Estimated GFR (Non- 99.8 BUN/Creatinine Ratio 47.3 10-20 Random Glucose 119 70-99 mg/dl Calcium Level 7.7 8.5-10.1 mg/dl Test 08/12/16 11:45 08/12/16 15:46 Range/Units Arterial Blood pH 7.43 7.35-7.45 Arterial Blood Partial Pressure CO2 56 35-46 mmHg Arterial Blood Partial Pressure O2 66 80-95 mm/Hg Arterial Blood HCO3 36 19-24 mmol/L Arterial Blood Oxygen Saturation 89.9 90-95 % Arterial Blood Base Excess 10.3 -9-1.8 mEq/L Arterial Blood Gas Delivery 2.5 LITERS Kranthi Test POSITIVE POS Bedside Glucose 199 70-99 mg/dl Assessment and Plan 71 yo M w/ hx of COPD . recurrent pleural effusions, Diastolic CHF, recent admission of PNA and recent hospitalization for GI Bleed p/w SOB , admitted for Acute Hypoxic Resp. Failure, Toxic Encephalopathy, Anemia Acute on Chronic hypoxic respiratory failure - improved from arrival, 97 % on 2L NC - CXR (08/11/16): Bilateral pleural effusions, right larger than left. - Pt refused Video swallow study to rule out aspiration. - s/p 7 days Levaquin, s/p 2 days of Zosyn. - Continue DuoNeb INH Q4 Scheduled, Continue Symbicort BID and Pulmozyme BID. COPD -stable - likely chronic CO2 retainer due to COPD leading to chronic Respiratory Acidosis with metabolic compensation - Bicarb 35 - ABG confirmed - If Co2 continues to increase, consider Bipap Lethargy likely Toxic Encephalopathy due to medication -Ambien held -recently Gabapentin had been increased ot 600 mg BID, dose was cut in half for possible contribution to lethargy Reassess in the AM Acute on Chronic Diastolic CHF, Pleural effusions - CHF protocols in place: fluid restriction limit to 1.5L, monitor I/O and weight change, assess hydration status. - Continue IV Lasix 20mg BID and continue to monitor. - Continue Aldactone 25mg daily. Left pleural effusion - s/p tube thoracostomy 08/03/16. -Chest tube removed on 04/15 Anemia - Hemoglobin stable between 8 and 9. - Last FOBT Positive, previous 3 were negative - F/u folate, b12, Iron studies - Continue to monitor. - Consider transfusing with 2units PRBC. Productive cough, course breath sounds - Start Guaifenesin 200 mg BID Afib with RVR - rate contolled - Continue Coreg 25mg BID, Diltiazem held - Last INR 2.5 - Continue Coumadin 2mg - F/U repeat INR Neuropathic pain 2/2 DM2 - previously Increased Gabapentin to 600mg BID - decreased to 300 md BID due ot possible contribution to lethargy Chronic Right heel ulceration and Left Forearm Skin Tear - Continue Woundcare DM2 - managed per glycemic consult - Continue Lantus 17 unit - Aspart sliding scale with AC/HS BSG Recent H/O severe GI bleed requiring blood transfusion - Continue Carafate 1g and Protonix 40mg daily Depression - Increase Paroxetine 20mg to BID BPH - Continue tamsulosin 0.4mg daily. DVT Prophylaxis - - Coumadin 2mg Code Status - DNR Attending Attestation: Pt seen/examined, chart reviewed, care plan d/w PGY1 Dr. Noah Parekh. I agree w/ the magana components of his documentation with the following exceptions - none. Pt continues with cough and sob at times. EATING VERY WELL PER STAFF but not following the salt or fluid restriction orders. Very sleepy earlier today per staff. VSS, afebrile gen - NAD, coughing mouth - MMM neck - JVD present heart - irregular, s1, s2 lungs - extensive b/l wheezing, decreased BS bases abd - soft, NT ext - no edema Hb 8 BUN 29 Cr 0.6 A/P: 1. COPD w/ exacerbation - improving 2. acute/chronic diastolic CHF - improving; cont lasix today; consider stopping tomorrow pending clinical status & labs 3. toxic encephalopathy 2nd to ambien, gabapentin; stop ambien, reduce gabapentin dose; ABG w/o decompensated hypercarbia 4. anemia 5. T2DM 6. recent pneumonia 7. a. fib on coumadin, INR at goal dispo - SNF [facility] MD
[2016-08-12] MEDS: GUAIFENESIN 600 MG TABCR PO SCH (20:50)
[2016-08-12] MEDS: TAMSULOSIN HCL 0.4 MG CAP PO SCH (20:51)
[2016-08-12] MEDS: INSULIN GLARGINE SOLOSTAR 100 UNITS/ML 3 ML PEN SC SCH (20:56)
[2016-08-13] VITALS (15 sets, daily range): BP systolic 99–126; BP diastolic 64–87; PULSE 77–110; TEMP 36.4–36.8; O2SAT 91–100
[2016-08-13] MEDS: LORAZEPAM 0.5 MG TAB PO PRN ×2 (00:28→23:54)
[2016-08-13] MEDS: ALBUT/IPRATROP 3MG/0.5MG NEB 3 ML VIAL INH PRN (00:35)
[2016-08-13] MEDS: OXYCODONE HCL IR 5 MG TAB (IMMEDIATE RELEASE) PO PRN ×2 (01:23→08:39)
[2016-08-13] MEDS: INSULIN ASPART 100 UNITS/ML 3 ML PEN SC SCH ×6 (04:00→21:13)
[2016-08-13] MEDS: LEVOTHYROXINE 25 MCG TAB PO SCH (05:37)
[2016-08-13 06:59] LABS: BASO % 0.1 %; BASO ABS # 0.01 K/uL (0-0.2); HEMATOCRIT 25.6 % (42-52); IG% 0.3 %; LYMPH % 14.3 %; LYMPH ABS # 0.97 K/uL (1.2-3.4); MEAN CELL VOLUME 83.7 fL (80-100); MEAN CORPUSCULAR HEMOGLOBIN 25.5 pg (25-34); MEAN CORPUSCULAR HGB CONC 30.5 g/dl (32-36); MEAN PLATELET VOLUME 9.6 fL (7.4-10.4); MONO % 14.6 %; NEUT % 69.7 %; PLATELET COUNT 160 K/uL (130-400); RED BLOOD COUNT 3.06 M/uL (4.7-6.1); WHITE BLOOD COUNT 6.78 K/uL (4.8-10.8)
[2016-08-13] MEDS: DORNASE ALFA (2500U) 2.5MG/2.5ML INH SCH ×2 (07:05→19:51)
[2016-08-13] MEDS: ACETYLCYSTEINE 20% INHAL SOLN ***DISPENSED BY RESP. INH SCH ×2 (07:05→19:51)
[2016-08-13] MEDS: ALBUT/IPRATROP 3MG/0.5MG NEB 3 ML VIAL INH SCH ×4 (07:05→19:51)
[2016-08-13 07:12] LABS: PROTHROMBIN TIME (PATIENT) 40.8 SECONDS (9.0-12.0)
[2016-08-13 07:13] LABS: INR 3.6 (0.9-1.1)
[2016-08-13 07:32] LABS: BUN/CREATININE RATIO 53.6 (10-20); CALCIUM 8.1 mg/dl (8.5-10.1); CREATININE 0.5 mg/dl (0.60-1.40)
[2016-08-13 07:35] LABS: COMPLETE YES; POLYCHROMASIA 1+
[2016-08-13] MEDS: SUCRALFATE 1 GM/10 ML UDC PO SCH ×4 (07:35→21:07)
[2016-08-13 07:37] LABS: FERRITIN 25.9 ng/ml (8.0-388.0)
--- NOTE | 2016-08-13 08:10 | Family Medicine Progress Note ---
Progress Note Date of Service Aug 13, 2016. Subjective Pt evaluation today including: conversation w/ patient, physical exam, chart review, lab review, review of studies, review of inpatient medication list Pain: pain in the hands/feet attributed to diabetic neuropathy PO Intake: adequate Voiding: krueger catheter in place Constitutional: No chills, No fever Respiratory: + cough (dry), + shortness of breath, No wheezing Cardiovascular: No chest pain, No edema Abdomen: No nausea, No pain Male : No dysuria, No urinary frequency Neurologic: + problem reported (neuropathy ( hands/feet)) Skin: No itch, No rash Medications Current Inpatient Medications Medications (Trade) Dose Ordered Sig/Sujatha Route Start Time Stop Time Status Last Admin Dose Admin Acetaminophen (Tylenol Tab) 650 mg Q4H PRN PO 07/31/16 01:15 08/30/16 01:14 08/09/16 17:15 650 MG Al Hydrox/Mg Hydrox/Simethicone (Maalox Max Susp) 15 ml Q4H PRN PO 07/31/16 01:15 08/30/16 01:14 Ondansetron HCl (Zofran Inj) 4 mg Q6H PRN IV 07/31/16 01:15 08/30/16 01:14 Nitroglycerin (Nitrostat Tab) 0.4 mg UD PRN SL 07/31/16 01:15 08/30/16 01:14 08/06/16 10:46 0.4 MG Bisacodyl (Dulcolax Supp) 5 mg PRN PRN [place] 07/31/16 01:30 08/30/16 01:29 07/31/16 20:24 5 MG Cyanocobalamin (Vitamin B-12 Tab) 500 mcg DAILY PO 07/31/16 09:00 08/30/16 08:59 08/12/16 08:55 500 MCG Levothyroxine Sodium (Synthroid Tab) 25 mcg DAILYBB PO 07/31/16 06:00 08/30/16 05:59 08/13/16 05:37 25 MCG Magnesium Hydroxide (Milk Of Magnesia Susp) 30 ml HS PRN PO 07/31/16 01:30 08/30/16 01:29 08/10/16 11:32 30 ML Sodium Biphosphate/ Sodium Phosphate (Fleet Enema) 1 ml DAILY PRN [place] 07/31/16 01:30 08/30/16 01:29 Sucralfate (Carafate Susp) 1 gm ACHS PO 07/31/16 07:00 08/30/16 06:59 08/13/16 07:35 1 GM Tamsulosin HCl (Flomax Cap) 0.4 mg HS PO 07/31/16 21:00 08/30/16 20:59 08/12/16 20:51 0.4 MG Miscellaneous Information (Consult Glycemic Management Pharmacy) 1 ea UD PRN N/A 07/31/16 02:39 08/30/16 02:38 Miconazole Nitrate (Desenex Powder) 1 appln PRN PRN EXT 07/31/16 11:45 08/30/16 11:44 07/31/16 22:00 1 APPLN Pantoprazole Sodium (Protonix Tab) 40 mg QAM PO 08/01/16 09:00 08/31/16 08:59 08/12/16 08:57 40 MG Lorazepam (Ativan Tab) 0.5 mg Q6 PRN PO 08/01/16 12:15 08/31/16 12:14 08/13/16 00:28 0.5 MG Acetylcysteine (Mucomyst 20% Inh Soln) 3 ml BIDR INH 08/01/16 20:00 08/31/16 19:59 08/12/16 19:42 3 ML Dornase Alan 2.5 ml 2.5 ml BIDR INH 08/02/16 20:00 09/01/16 19:59 08/12/16 19:42 2.5 ML Furosemide/Syringe (Lasix Inj/ Syringe) 2 ml @ 4 mls/min BID17 IV 08/02/16 17:30 09/01/16 17:29 Future hold 08/12/16 15:37 4 MLS/MIN Glucose (Glucose 40% Gel) UD PRN PO 08/02/16 22:15 09/01/16 22:14 Glucose (Glucose Chew Tab) 1 tabs UD PRN PO 08/02/16 22:15 09/01/16 22:14 Dextrose (Dextrose 50% 50ML Syringe) 50 ml UD PRN IV 08/02/16 22:15 09/01/16 22:14 Glucagon (Glucagon Inj) 1 mg UD PRN SQ 08/02/16 22:15 09/01/16 22:14 Carvedilol (Coreg Tab) 25 mg BID PO 08/03/16 09:00 09/02/16 08:59 08/12/16 20:52 25 MG Spironolactone (Aldactone Tab) 25 mg QAM PO 08/03/16 09:00 09/02/16 08:59 08/12/16 08:56 25 MG Docusate Sodium (coLACE CAP) 100 mg BID PRN PO 08/03/16 08:30 09/02/16 08:29 08/03/16 18:47 100 MG Insulin Aspart (novoLOG ASPART) SLIDING SCALE G... ACHS SC 08/03/16 16:00 09/02/16 15:59 08/12/16 20:57 5 UNITS Diltiazem HCl (Cardizem Tab) 30 mg TID PO 08/04/16 21:00 09/03/16 20:59 Future Hold 08/12/16 08:56 30 MG Albuterol/ Ipratropium (Duoneb) 3 ml Q4RWA INH 08/06/16 16:00 09/05/16 15:59 08/12/16 19:42 3 ML Budesonide/ Formoterol Fumarate (Symbicort 160/ 4.5 Inh) 2 puffs BID INH 08/06/16 21:00 09/05/16 20:59 08/12/16 20:49 2 PUFFS Albuterol/ Ipratropium (Duoneb) 3 ml Q2R PRN INH 08/06/16 13:45 09/05/16 13:44 08/13/16 00:35 3 ML Levofloxacin (Levaquin Tab) 750 mg DAILY@11 PO 08/09/16 11:00 08/16/16 10:59 08/12/16 12:59 750 MG Warfarin Sodium (Coumadin Tab) 2 mg DAILY@1600 PO 08/09/16 16:00 09/08/16 15:59 08/12/16 15:36 2 MG Paroxetine HCl (pAXil TAB) 20 mg BID PO 08/11/16 21:00 09/10/16 20:59 08/12/16 20:50 20 MG Oxycodone HCl (Roxicodone Immediate Rel Tab) 5 mg Q4H PRN PO 08/11/16 10:15 08/25/16 10:14 08/13/16 01:23 5 MG Insulin Glargine (Lantus Solostar Pen) 17 unit HS SC 08/11/16 21:00 09/10/16 20:59 08/12/16 20:56 17 UNIT Insulin Aspart (novoLOG ASPART) SLIDING SCALE G... 0000,0400 SC 08/12/16 00:00 09/11/16 00:00 08/13/16 04:00 2 UNITS Gabapentin (Neurontin Cap) 300 mg BID PO 08/12/16 21:00 09/11/16 20:59 08/12/16 20:50 300 MG Guaifenesin (Mucinex Contr Rel Tab) 1,200 mg Q12 PO 08/12/16 21:00 09/11/16 20:59 08/12/16 20:50 1,200 MG Objective Physical Exam General Appearance: WD/WN, no apparent distress Eyes: PERRL, EOMI Respiratory/Chest: lungs clear, normal breath sounds Cardiovascular: regular rate, rhythm, no edema, no murmur Abdomen: normal bowel sounds, non tender, soft, no organomegaly Extremities: no pedal edema, no calf tenderness Neurologic/Psychiatric: alert, oriented x 3 Skin: normal color, warm/dry, no rash Laboratory Results Results Past 24 Hours Test 08/12/16 11:21 08/12/16 11:45 08/12/16 15:46 08/12/16 20:15 Range/Units Bedside Glucose 195 199 122 70-99 mg/dl Arterial Blood pH 7.43 7.35-7.45 Arterial Blood Partial Pressure CO2 56 35-46 mmHg Arterial Blood Partial Pressure O2 66 80-95 mm/Hg Arterial Blood HCO3 36 19-24 mmol/L Arterial Blood Oxygen Saturation 89.9 90-95 % Arterial Blood Base Excess 10.3 -9-1.8 mEq/L Arterial Blood Gas Delivery 2.5 LITERS Kranthi Test POSITIVE POS Test 08/12/16 23:43 08/13/16 03:57 08/13/16 06:22 08/13/16 06:23 Range/Units Bedside Glucose 132 207 152 70-99 mg/dl White Blood Count 6.78 4.8-10.8 K/uL Red Blood Count 3.06 4.7-6.1 M/uL Hemoglobin 7.8 14.0-18.0 g/dL Hematocrit 25.6 42-52 % Mean Corpuscular Volume 83.7 80-100 fL Mean Corpuscular Hemoglobin 25.5 25-34 pg Mean Corpuscular Hemoglobin Concent 30.5 32-36 g/dl Platelet Count 160 130-400 K/uL Mean Platelet Volume 9.6 7.4-10.4 fL Neutrophils (%) (Auto) 69.7 % Lymphocytes (%) (Auto) 14.3 % Monocytes (%) (Auto) 14.6 % Eosinophils (%) (Auto) 1.0 % Basophils (%) (Auto) 0.1 % Neutrophils # (Auto) 4.72 1.4-6.5 K/uL Lymphocytes # (Auto) 0.97 1.2-3.4 K/uL Monocytes # (Auto) 0.99 0.11-0.59 K/uL Eosinophils # (Auto) 0.07 0-0.5 K/uL Basophils # (Auto) 0.01 0-0.2 K/uL RDW Standard Deviation 50.5 36.4-46.3 fL RDW Coefficient of Variation 16.5 11.5-14.5 % Immature Granulocyte % (Auto) 0.3 % Immature Granulocyte # (Auto) 0.02 0.00-0.02 K/uL Polychromasia 1+ Prothrombin Time 40.8 9.0-12.0 SECONDS Prothromb Time International Ratio 3.6 0.9-1.1 Sodium Level 138 136-145 mmol/L Potassium Level 5.0 3.5-5.1 mmol/L Chloride Level 97 98-107 mmol/L Carbon Dioxide Level 36 21-32 mmol/L Anion Gap 5.0 3-11 mmol/L Blood Urea Nitrogen 27 7-18 mg/dl Creatinine 0.50 0.60-1.40 mg/dl Est Creatinine Clear Calc Drug Dose 161.0 ml/min Estimated GFR () 125.5 Estimated GFR (Non- 108.3 BUN/Creatinine Ratio 53.6 10-20 Random Glucose 148 70-99 mg/dl Calcium Level 8.1 8.5-10.1 mg/dl Iron Level 19 35-175 mcg/dl Total Iron Binding Capacity 303 250-450 mcg/dl Transferrin 227 200-360 mg/dl Transferrin % Saturation 6 20-50 % Ferritin 25.9 8.0-388.0 ng/ml Vitamin B12 Level 665 211-911 pg/mL Folate 9.66 >5.38 ng/mL Assessment and Plan 71 yo M w/ hx of COPD . recurrent pleural effusions, Diastolic CHF, recent admission of PNA and recent hospitalization for GI Bleed p/w SOB , admitted for Acute Hypoxic Resp. Failure, Toxic Encephalopathy, Anemia Acute on Chronic hypoxic respiratory failure - improved from arrival, 97 % on 2L NC - CXR (08/11/16): Bilateral pleural effusions, right larger than left. - Pt refused Video swallow study to rule out aspiration. - s/p 7 days Levaquin, s/p 2 days of Zosyn. - Continue DuoNeb INH Q4 Scheduled, Continue Symbicort BID and Pulmozyme BID. COPD -stable - likely chronic CO2 retainer due to COPD leading to chronic Respiratory Acidosis with metabolic compensation - Bicarb 36 <--35 - ABG confirmed - If CO2 continues to increase, consider Bipap Lethargy likely Toxic Encephalopathy due to medication -Ambien held -recently Gabapentin had been increased to 600 mg BID, dose was cut in half for \e contribution to lethargy - Patient alertness significantly improved. Acute on Chronic Diastolic CHF, Pleural effusions - CHF protocols in place: fluid restriction limit to 1.5L, monitor I/O and weight change, assess hydration status. -patient diuresing well. NAseline Weight 195 lbs per patient. currently at 212. - Stopped IV Lasix 20mg BID. Gave 40 mg Lasix x 1 - Continue Aldactone 25mg daily. Left pleural effusion - s/p tube thoracostomy 08/03/16. -Chest tube removed on 04/15 Anemia - Hemoglobin stable between 8 and 9. - Last FOBT Positive, previous 3 were negative - F/u folate, b12, Iron studies - Continue to monitor. B12, Folate wnl - Iron studies show Low Iron, NL Ferritin. Ferritin likely elevated from baseline as an acute phase reactant - Started Iron supplementation ( Ferrous sulfate 325 mg BID) Productive cough, course breath sounds - Continue Guaifenesin 200 mg BID Afib with RVR - rate controlled - Continue Coreg 25mg BID, Diltiazem held -INR 3.6 -Coumadin held -F/U repeat INR Neuropathic pain 2/2 DM2 - previously Increased Gabapentin to 600mg BID - decreased to 300 md BID due ot possible contribution to lethargy -patient has not experienced worsening of neuropathic symptoms with dosage reduction Chronic Right heel ulceration and Left Forearm Skin Tear - Continue Woundcare DM2 - managed per glycemic consult - Continue Lantus 17 unit - Aspart sliding scale with AC/HS BSG Recent H/O severe GI bleed requiring blood transfusion - Continue Carafate 1g and Protonix 40mg daily Depression - Continue Paroxetine 20mg to BID BPH - Continue tamsulosin 0.4mg daily. DVT Prophylaxis - - Coumadin held for elevated INR 3.6 Code Status - DNR Attending Attestation: Pt seen/examined, chart reviewed, care plan d/w PGY1 Dr. Noah Parekh. I agree w/ the magana components of his documentation with the following exceptions - none. Pt feeling better each day although still is quite weak. Children at bedside. Pt agreeable to SNF placement for rehab. VSS, afebrile, neg negative nearly 20 liters since admission gen - NAD mouth - MMM neck - JVD present heart - irregular, s1, s2 lungs - extensive b/l wheezing, decreased BS bases - no change from prior exam abd - soft, NT ext - 1+ edema b/l Hb 7.8 Cr 0.5 Fe studies suggestive of Fe deficiency A/P: 1. COPD w/ exacerbation - improving albeit very slowly 2. acute/chronic diastolic CHF - baseline dry weight not clear but seems to be <200 #; with that being said along with stable creatinine will continue diuresis but increase to 40mg BID IV 3. toxic encephalopathy 2nd to ambien, gabapentin - resolved; gabapentin dose reduced and tolerating it well 4. anemia - 2nd to iron def - Fe supplementation; due to GI blood loss, phlebotomy, etc; daily CBC 5. T2DM - controlled 6. recent pneumonia - resolved, off abx 7. a. fib on coumadin, INR >3 - hold coumadin; daily INR dispo - SNF family updated [facility] M[facility] MD Continued [facility] stay due to: voiding difficulties, home environment unsafe for pt Resident Tracking Resident Involvement: Resident Care Provided Care Provided: Adult Hospital Medicine
[2016-08-13] MEDS: CARVEDILOL 25 MG TAB PO SCH ×2 (08:29→21:08)
[2016-08-13] MEDS: BUDESONIDE/FORMOTEROL FUMARATE 160/4.5 60 PUFFS/INHALER INH SCH ×2 (08:29→21:07)
[2016-08-13] MEDS: FUROSEMIDE INJ 20 MG in SYRINGE 0 ML IV SCH (08:30)
[2016-08-13] MEDS: PAROXETINE 20 MG TAB PO SCH ×2 (08:30→21:08)
[2016-08-13] MEDS: SPIRONOLACTONE 25 MG TAB PO SCH (08:30)
[2016-08-13] MEDS: GABAPENTIN 300 MG CAP PO SCH ×2 (08:30→21:08)
[2016-08-13] MEDS: PANTOprazole SOD 40 MG TAB PO SCH (08:30)
[2016-08-13] MEDS: CYANOCOBALAMIN 500 MCG TAB (VIT B-12) PO SCH (08:31)
[2016-08-13] MEDS: GUAIFENESIN 600 MG TABCR PO SCH ×2 (08:31→21:07)
--- NOTE | 2016-08-13 09:51 | Pharmacy Progress Note ---
Glycemic: Assessment & Plan Date of Service Aug 13, 2016. Assessment & Plan The patient is currently receiving ~35-60 units of insulin per day. Total daily dose is higher when PO intake adequate. BSGs ranging 122 - 207 mg/dl over the past 24hrs. Current insulin regimen is providing adequate glycemic control. Pharmacy is signing off of glycemic consult. Please feel free to re-consult if needed. * Basal insulin: Lantus 17 units every 24 hours given at bedtime * Correctional Insulin: Novolog Correction per scale ACHS Goal Range: Low 120 mg/dL - High 160 mg/dL Correction Factor: 25 mg/dL/unit * Prandial insulin: Per carb ratio of 1 unit per 10 grams CHO consumed Looking ahead to discharge: * Recommend continuing Lantus 17-20units SQ given at bedtime * Recommend NovoLog 6 units SQ TIDM. * Please note that the plan above was derived based on current level of insulin resistance and hospital stress. These recommendations are appropriate for inpatient admission only. Plan of care upon discharge will need to be reassessed to avoid potential outpatient hypo/hyperglycemia.
[2016-08-13] MEDS ORDERED: FUROSEMIDE 40 MG/4 ML VIAL IV STA (15:39)
[2016-08-13] MEDS ORDERED: FUROSEMIDE INJ 40 MG in SYRINGE 0 ML IV ONE (16:45)
[2016-08-13] MEDS: FERROUS SULFATE 325 MG TAB PO SCH (17:22)
[2016-08-13] MEDS: MAGNESIUM HYDROXIDE SUSP 30 ML UDC PO PRN (18:09)
[2016-08-13] MEDS: TAMSULOSIN HCL 0.4 MG CAP PO SCH (21:08)
[2016-08-13] MEDS: INSULIN GLARGINE SOLOSTAR 100 UNITS/ML 3 ML PEN SC SCH (21:12)
[2016-08-13] MEDS: NITROGLYCERIN 0.4 MG SL PER TAB CHARGE SL PRN ×2 (23:26→23:32)
[2016-08-14] VITALS (13 sets, daily range): BP systolic 107–125; BP diastolic 66–84; PULSE 76–108; TEMP 36.2–36.8; O2SAT 91–98
[2016-08-14] MEDS: SUCRALFATE 1 GM/10 ML UDC PO SCH ×4 (05:08→20:36)
[2016-08-14] MEDS: LEVOTHYROXINE 25 MCG TAB PO SCH (05:08)
[2016-08-14] MEDS: ALBUT/IPRATROP 3MG/0.5MG NEB 3 ML VIAL INH SCH ×4 (07:37→20:00)
[2016-08-14] MEDS: DORNASE ALFA (2500U) 2.5MG/2.5ML INH SCH ×2 (07:37→20:00)
[2016-08-14] MEDS: ACETYLCYSTEINE 20% INHAL SOLN ***DISPENSED BY RESP. INH SCH ×2 (07:37→20:00)
[2016-08-14 07:59] LABS: HEMATOCRIT 25.5 % (42-52); MEAN CELL VOLUME 84.4 fL (80-100); MEAN CORPUSCULAR HEMOGLOBIN 26.2 pg (25-34); MEAN PLATELET VOLUME 9.4 fL (7.4-10.4); PLATELET COUNT 174 K/uL (130-400); RED BLOOD COUNT 3.02 M/uL (4.7-6.1); WHITE BLOOD COUNT 7.33 K/uL (4.8-10.8)
[2016-08-14 08:04] LABS: INR 3.3 (0.9-1.1); PROTHROMBIN TIME (PATIENT) 37.3 SECONDS (9.0-12.0)
[2016-08-14] MEDS: PAROXETINE 20 MG TAB PO SCH ×3 (08:25→21:00)
[2016-08-14] MEDS: GUAIFENESIN 600 MG TABCR PO SCH ×2 (08:25→20:33)
[2016-08-14] MEDS: PANTOprazole SOD 40 MG TAB PO SCH (08:26)
[2016-08-14] MEDS: FERROUS SULFATE 325 MG TAB PO SCH ×2 (08:26→18:22)
[2016-08-14] MEDS: GABAPENTIN 300 MG CAP PO SCH ×3 (08:26→21:00)
[2016-08-14] MEDS: SPIRONOLACTONE 25 MG TAB PO SCH (08:26)
[2016-08-14] MEDS: BUDESONIDE/FORMOTEROL FUMARATE 160/4.5 60 PUFFS/INHALER INH SCH ×3 (08:27→21:00)
[2016-08-14] MEDS: CARVEDILOL 25 MG TAB PO SCH ×3 (08:27→21:00)
[2016-08-14 08:28] LABS: BUN/CREATININE RATIO 48.1 (10-20); CALCIUM 8.4 mg/dl (8.5-10.1); CREATININE 0.53 mg/dl (0.60-1.40); MAGNESIUM 2.2 mg/dl (1.8-2.4); POTASSIUM 4.6 mmol/L (3.5-5.1)
[2016-08-14] MEDS: CYANOCOBALAMIN 500 MCG TAB (VIT B-12) PO SCH (08:51)
[2016-08-14] MEDS: OXYCODONE HCL IR 5 MG TAB (IMMEDIATE RELEASE) PO PRN (08:53)
[2016-08-14] MEDS ORDERED: FUROSEMIDE 40 MG/4 ML VIAL IV STA ×2 (09:03→19:41)
[2016-08-14] MEDS ORDERED: FUROSEMIDE INJ 40 MG in SYRINGE 0 ML IV SCH (09:30)
[2016-08-14] MEDS: INSULIN ASPART 100 UNITS/ML 3 ML PEN SC SCH ×4 (10:00→20:40)
--- NOTE | 2016-08-14 11:48 | Family Medicine Progress Note ---
Progress Note Date of Service Aug 14, 2016. 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 feeling quite well. denied increased SOB. denied CP. no longer as drowsy. +BM, good appetite. stillreports of chronic neuropathic pain, of hands/feet. Constitutional: No chills, No fever Respiratory: + shortness of breath (at baseline), No cough Cardiovascular: + edema, No chest pain, No palpitations Abdomen: No constipation, No diarrhea, No nausea, No pain, No vomiting Musculoskeletal: No calf pain, No swelling Male : + problem reported (has krueger cathter) Neurologic: + problem reported (neuropathy, hands/feet) Heme: + problem reported Skin: No itch, No rash Medications Current Inpatient Medications Medications (Trade) Dose Ordered Sig/Sujatha Route Start Time Stop Time Status Last Admin Dose Admin Acetaminophen (Tylenol Tab) 650 mg Q4H PRN PO 07/31/16 01:15 08/30/16 01:14 08/09/16 17:15 650 MG Al Hydrox/Mg Hydrox/Simethicone (Maalox Max Susp) 15 ml Q4H PRN PO 07/31/16 01:15 08/30/16 01:14 Ondansetron HCl (Zofran Inj) 4 mg Q6H PRN IV 07/31/16 01:15 08/30/16 01:14 Nitroglycerin (Nitrostat Tab) 0.4 mg UD PRN SL 07/31/16 01:15 08/30/16 01:14 08/13/16 23:32 0.4 MG Bisacodyl (Dulcolax Supp) 5 mg PRN PRN NC 07/31/16 01:30 08/30/16 01:29 07/31/16 20:24 5 MG Cyanocobalamin (Vitamin B-12 Tab) 500 mcg DAILY PO 07/31/16 09:00 08/30/16 08:59 08/14/16 08:51 500 MCG Levothyroxine Sodium (Synthroid Tab) 25 mcg DAILYBB PO 07/31/16 06:00 08/30/16 05:59 08/14/16 05:08 25 MCG Magnesium Hydroxide (Milk Of Magnesia Susp) 30 ml HS PRN PO 07/31/16 01:30 08/30/16 01:29 08/13/16 18:09 30 ML Sodium Biphosphate/ Sodium Phosphate (Fleet Enema) 1 ml DAILY PRN NC 07/31/16 01:30 08/30/16 01:29 Sucralfate (Carafate Susp) 1 gm ACHS PO 07/31/16 07:00 08/30/16 06:59 08/14/16 11:40 1 GM Tamsulosin HCl (Flomax Cap) 0.4 mg HS PO 07/31/16 21:00 08/30/16 20:59 08/13/16 21:08 0.4 MG Miconazole Nitrate (Desenex Powder) 1 appln PRN PRN EXT 07/31/16 11:45 08/30/16 11:44 07/31/16 22:00 1 APPLN Pantoprazole Sodium (Protonix Tab) 40 mg QAM PO 08/01/16 09:00 08/31/16 08:59 08/14/16 08:26 40 MG Lorazepam (Ativan Tab) 0.5 mg Q6 PRN PO 08/01/16 12:15 08/31/16 12:14 08/13/16 23:54 0.5 MG Acetylcysteine (Mucomyst 20% Inh Soln) 3 ml BIDR INH 08/01/16 20:00 08/31/16 19:59 08/14/16 07:37 3 ML Dornase Alan (Pulmozyme Inhalation Soln 2.5ml Amp) 2.5 ml BIDR INH 08/02/16 20:00 09/01/16 19:59 08/14/16 07:37 2.5 ML Glucose (Glucose 40% Gel) UD PRN PO 08/02/16 22:15 09/01/16 22:14 Glucose (Glucose Chew Tab) 1 tabs UD PRN PO 08/02/16 22:15 09/01/16 22:14 Dextrose (Dextrose 50% 50ML Syringe) 50 ml UD PRN IV 08/02/16 22:15 09/01/16 22:14 Glucagon (Glucagon Inj) 1 mg UD PRN SQ 2/3/17 22:15 09/01/16 22:14 Carvedilol (Coreg Tab) 25 mg BID PO 08/03/16 09:00 09/02/16 08:59 08/14/16 08:27 25 MG Spironolactone (Aldactone Tab) 25 mg QAM PO 08/03/16 09:00 09/02/16 08:59 08/14/16 08:26 25 MG Docusate Sodium (coLACE CAP) 100 mg BID PRN PO 08/03/16 08:30 09/02/16 08:29 08/03/16 18:47 100 MG Insulin Aspart (novoLOG ASPART) SLIDING SCALE G... ACHS SC 08/03/16 16:00 09/02/16 15:59 08/14/16 10:00 6 UNITS Albuterol/ Ipratropium (Duoneb) 3 ml Q4RWA INH 08/06/16 16:00 09/05/16 15:59 08/14/16 11:10 3 ML Budesonide/ Formoterol Fumarate (Symbicort 160/ 4.5 Inh) 2 puffs BID INH 08/06/16 21:00 09/05/16 20:59 08/14/16 08:27 2 PUFFS Albuterol/ Ipratropium (Duoneb) 3 ml Q2R PRN INH 08/06/16 13:45 09/05/16 13:44 08/13/16 00:35 3 ML Warfarin Sodium (Coumadin Tab) 2 mg DAILY@1600 PO 08/09/16 16:00 09/08/16 15:59 Future Hold 08/12/16 15:36 2 MG Paroxetine HCl (pAXil TAB) 20 mg BID PO 08/11/16 21:00 09/10/16 20:59 08/14/16 08:25 20 MG Oxycodone HCl (Roxicodone Immediate Rel Tab) 5 mg Q4H PRN PO 08/11/16 10:15 08/25/16 10:14 08/14/16 08:53 5 MG Insulin Glargine (Lantus Solostar Pen) 17 unit HS SC 08/11/16 21:00 09/10/16 20:59 2/14/17 21:12 17 UNIT Gabapentin (Neurontin Cap) 300 mg BID PO 08/12/16 21:00 09/11/16 20:59 08/14/16 08:26 300 MG Guaifenesin (Mucinex Contr Rel Tab) 1,200 mg Q12 PO 08/12/16 21:00 09/11/16 20:59 08/14/16 08:25 1,200 MG Ferrous Sulfate (Feosol Tab) 325 mg BIDM PO 08/13/16 16:45 09/12/16 16:44 08/14/16 08:26 325 MG Diltiazem HCl (TIAzac CAP) 120 mg QAM PO 08/15/16 08:00 09/14/16 07:59 Objective Vital Signs Date Time Temp Pulse Resp B/P Pulse Ox O2 Delivery O2 Flow Rate FiO2 08/14/16 11:28 87 22 107/66 93 Nasal Cannula 2.0 08/14/16 11:10 82 18 93 Nasal Cannula 2.0 08/14/16 10:40 Nasal Cannula 2.0 08/14/16 08:04 36.2 76 18 125/75 96 Nasal Cannula 2.0 08/14/16 07:37 89 18 91 Nasal Cannula 2.0 08/14/16 01:30 Nasal Cannula 2.0 Humidified Oxygen 08/14/16 00:50 36.8 108 20 120/84 98 Nasal Cannula 2.0 Humidified Oxygen 08/14/16 00:00 93 08/13/16 23:59 36.8 110 109/87 93 Nasal Cannula 2.0 08/13/16 20:00 36.8 96 14 126/78 100 08/13/16 19:51 87 20 96 Nasal Cannula 2.0 08/13/16 16:00 100 Nasal Cannula 2.0 08/13/16 14:54 36.4 90 22 120/74 95 Nasal Cannula 2.0 08/13/16 13:30 36.7 94 20 107/67 92 08/13/16 12:00 100 Nasal Cannula 2.0 Physical Exam General Appearance: WD/WN, no apparent distress Eyes: normal inspection, PERRL, EOMI ENT: pharynx normal (moist mucous memranes) Neck: supple, no adenopathy Respiratory/Chest: chest non-tender, lungs clear, normal breath sounds Cardiovascular: regular rate, rhythm, no murmur, + normal peripheral pulses Abdomen: normal bowel sounds, non tender, soft Extremities: no calf tenderness, + pedal edema (1+) Neurologic/Psychiatric: alert, normal mood/affect, oriented x 3 Skin: + pertinent finding (multiple areas of ecchymosis) Laboratory Results Results Past 24 Hours Test 08/14/16 07:30 08/14/16 07:34 08/14/16 07:35 08/14/16 11:58 Range/Units White Blood Count 7.33 4.8-10.8 K/uL Red Blood Count 3.02 4.7-6.1 M/uL Hemoglobin 7.9 14.0-18.0 g/dL Hematocrit 25.5 42-52 % Mean Corpuscular Volume 84.4 80-100 fL Mean Corpuscular Hemoglobin 26.2 25-34 pg Mean Corpuscular Hemoglobin Concent 31.0 32-36 g/dl RDW Standard Deviation 51.5 36.4-46.3 fL RDW Coefficient of Variation 16.7 11.5-14.5 % Platelet Count 174 130-400 K/uL Mean Platelet Volume 9.4 7.4-10.4 fL Prothrombin Time 37.3 9.0-12.0 SECONDS Prothromb Time International Ratio 3.3 0.9-1.1 Bedside Glucose 183 255 70-99 mg/dl Sodium Level 138 136-145 mmol/L Potassium Level 4.6 3.5-5.1 mmol/L Chloride Level 96 98-107 mmol/L Carbon Dioxide Level 35 21-32 mmol/L Anion Gap 7.0 3-11 mmol/L Blood Urea Nitrogen 26 7-18 mg/dl Creatinine 0.53 0.60-1.40 mg/dl Est Creatinine Clear Calc Drug Dose 151.9 ml/min Estimated GFR () 122.5 Estimated GFR (Non- 105.7 BUN/Creatinine Ratio 48.1 10-20 Random Glucose 149 70-99 mg/dl Calcium Level 8.4 8.5-10.1 mg/dl Magnesium Level 2.2 1.8-2.4 mg/dl Test 08/14/16 16:43 08/14/16 19:31 08/14/16 19:32 08/14/16 19:38 Range/Units Bedside Glucose 119 162 70-99 mg/dl White Blood Count 6.92 4.8-10.8 K/uL Red Blood Count 2.96 4.7-6.1 M/uL Hemoglobin 7.7 14.0-18.0 g/dL Hematocrit 24.8 42-52 % Mean Corpuscular Volume 83.8 80-100 fL Mean Corpuscular Hemoglobin 26.0 25-34 pg Mean Corpuscular Hemoglobin Concent 31.0 32-36 g/dl Platelet Count 195 130-400 K/uL Mean Platelet Volume 9.8 7.4-10.4 fL Neutrophils (%) (Auto) 73.2 % Lymphocytes (%) (Auto) 12.7 % Monocytes (%) (Auto) 12.7 % Eosinophils (%) (Auto) 1.0 % Basophils (%) (Auto) 0.1 % Neutrophils # (Auto) 5.06 1.4-6.5 K/uL Lymphocytes # (Auto) 0.88 1.2-3.4 K/uL Monocytes # (Auto) 0.88 0.11-0.59 K/uL Eosinophils # (Auto) 0.07 0-0.5 K/uL Basophils # (Auto) 0.01 0-0.2 K/uL RDW Standard Deviation 51.1 36.4-46.3 fL RDW Coefficient of Variation 16.7 11.5-14.5 % Immature Granulocyte % (Auto) 0.3 % Immature Granulocyte # (Auto) 0.02 0.00-0.02 K/uL Polychromasia 1+ Hypochromasia PRESENT Prothrombin Time 31.5 9.0-12.0 SECONDS Prothromb Time International Ratio 2.8 0.9-1.1 Activated Partial Thromboplast Time 48.9 21.0-31.0 SECONDS Partial Thromboplastin Ratio 1.9 Sodium Level 138 136-145 mmol/L Potassium Level 4.6 3.5-5.1 mmol/L Chloride Level 97 98-107 mmol/L Carbon Dioxide Level 35 21-32 mmol/L Anion Gap 6.0 3-11 mmol/L Blood Urea Nitrogen 26 7-18 mg/dl Creatinine 0.75 0.60-1.40 mg/dl Est Creatinine Clear Calc Drug Dose 107.4 ml/min Estimated GFR () 106.2 Estimated GFR (Non- 91.6 BUN/Creatinine Ratio 34.1 10-20 Random Glucose 120 70-99 mg/dl Calcium Level 7.9 8.5-10.1 mg/dl Phosphorus Level 3.5 2.5-4.9 mg/dl Magnesium Level 2.0 1.8-2.4 mg/dl Total Bilirubin 0.2 0.2-1 mg/dl Aspartate Amino Transf (AST/SGOT) 11 15-37 U/L Alanine Aminotransferase (ALT/SGPT) 15 12-78 U/L Alkaline Phosphatase 128 45-117 U/L Troponin I 0.028 0-0.045 ng/ml Total Protein 5.6 6.4-8.2 gm/dl Albumin 2.0 3.4-5.0 gm/dl Globulin 3.6 2.5-4.0 gm/dl Albumin/Globulin Ratio 0.6 0.9-2 Blood Gas Sample Site R Radial Bedside Blood Gas pH (LAB) 7.43 7.35-7.45 Bedside Blood Gas pCO2 (LAB) 52 35-46 mmHg Bedside Blood Gas pO2 (LAB) 80 80-95 mmHg Bedside Blood Gas HCO3 (LAB) 35 19-24 meq/L Bedside Blood Gas Total CO2 36 24-31 mEq/l Bedside Blood Gas Base Excess (LAB) 10.0 -9-1.8 meq/L Bedside Blood Gas O2 Saturation 96.0 90-95 % Kranthi Test Pass Oxygen Delivery Device Cannula Test 08/14/16 22:04 08/15/16 04:00 Range/Units Troponin I 0.023 0-0.045 ng/ml Assessment and Plan 71 yo M w/ hx of COPD . recurrent pleural effusions, Diastolic CHF, recent admission of PNA and recent hospitalization for GI Bleed p/w SOB , admitted for Acute Hypoxic Resp. Failure, Toxic Encephalopathy, Anemia Acute on Chronic hypoxic respiratory failure - improved from arrival, 97 % on 2L NC - CXR (08/11/16): Bilateral pleural effusions, right larger than left. - Pt refused Video swallow study to rule out aspiration. - s/p 7 days Levaquin, s/p 2 days of Zosyn. - Continue DuoNeb INH Q4 Scheduled, Continue Symbicort BID and Pulmozyme BID. COPD -stable - likely chronic CO2 retainer due to COPD leading to chronic Respiratory Acidosis with metabolic compensation - Bicarb 35<--5 36 <--35 - ABG confirmed - If CO2 continues to increase, consider Bipap Lethargy likely Toxic Encephalopathy due to medication -resolved, AOx3 -Ambien remains held -recently Gabapentin had been increased to 600 mg BID, dose was cut in half for \e contribution to lethargy - Patient alertness significantly improved. Acute on Chronic Diastolic CHF, Pleural effusions - CHF protocols in place: fluid restriction limit to 1.5L, monitor I/O and weight change, assess hydration status. -patient diuresing well. Baseline Weight 195 lbs per patient. - Continue Aldactone 25mg daily. -Diuresing well , -2.5 L over last 24 hrs, s/p 40 mg Lasix x 1 yesterday, gave additional; 40 mg Lasix this morning -Reassess volume status Left pleural effusion - s/p tube thoracostomy 08/03/16. -Chest tube removed on 04/15 Anemia - Hemoglobin near baseline - Last FOBT Positive, previous 3 were negative - F/u folate, b12, Iron studies - Continue to monitor. B12, Folate wnl - Iron studies show Low Iron, NL Ferritin. Ferritin likely elevated from baseline as an acute phase reactant - Continue Iron supplementation ( Ferrous sulfate 325 mg BID) -Follow CBC Productive cough, course breath sounds - Continue Guaifenesin 200 mg BID Afib with RVR - rate controlled - Continue Coreg 25mg BID, - switched from IR to Extended release Diltiazem -INR 3.6 -->3.3 -Coumadin held -F/U repeat INR Neuropathic pain 2/2 DM2 - unchanged - previously Increased Gabapentin to 600mg BID - decreased to 300 md BID due ot possible contribution to lethargy -patient has not experienced worsening of neuropathic symptoms with dosage reduction Chronic Right heel ulceration and Left Forearm Skin Tear - Continue Woundcare DM2 - managed per glycemic consult - Continue Lantus 17 unit - Aspart sliding scale with AC/HS BSG Recent H/O severe GI bleed requiring blood transfusion - Continue Carafate 1g and Protonix 40mg daily -Repeat FOBT Depression - Continue Paroxetine 20mg to BID BPH - Continue tamsulosin 0.4mg daily. DVT Prophylaxis - - Coumadin held for elevated INR 3.6 Code Status - DNR Pt/OT Disposition: accepted at [place] on d/c Attending Attestation: Pt seen/examined, chart reviewed, care plan d/w PGY1 Dr. Noah Parekh. I agree w/ the magana components of his documentation with the following exceptions - lung exam with extensive b/l wheezing; pallor. Pt w/o significant complaints today. Mild cough, mild dyspnea - but all symptoms improved. VSS, afebrile gen - awake, alert, NAD mouth - MMM neck - JVD present heart - irregular, s1, s2 lungs - extensive b/l wheezing but airation good abd - soft, NT ext - 1+ edema b/l Hb 7.9 Cr 0.5 A/P: 1. COPD w/ exacerbation - improved/resolved. 2. acute/chronic diastolic CHF - baseline dry weight not clear but seems to be <200 #; with that being said along with stable creatinine will continue diuresis with IV lasix. 3. toxic encephalopathy 2nd to ambien, gabapentin - resolved; gabapentin dose reduced and tolerating it well 4. anemia - 2nd to iron def - Fe supplementation; due to GI blood loss, phlebotomy, etc; daily CBC; consider transfusion if H/H drop any further. Not a good candidate for endoscopy in light of #1, #2. 5. T2DM - controlled 6. recent pneumonia - resolved, off abx 7. a. fib on coumadin - hold coumadin 1 more day. dispo - [facility] MD Continued [facility] stay due to: home environment unsafe for pt Resident Tracking Resident Involvement: Resident Care Provided Care Provided: Adult Hospital Medicine
[2016-08-14] MEDS ORDERED: FUROSEMIDE 40 MG/4 ML VIAL ONE (19:40)
[2016-08-14 19:50] LABS: BASO % 0.1 %; BASO ABS # 0.01 K/uL (0-0.2); HEMATOCRIT 24.8 % (42-52); IG% 0.3 %; LYMPH % 12.7 %; LYMPH ABS # 0.88 K/uL (1.2-3.4); MEAN CELL VOLUME 83.8 fL (80-100); MEAN PLATELET VOLUME 9.8 fL (7.4-10.4); MONO % 12.7 %; NEUT % 73.2 %; PLATELET COUNT 195 K/uL (130-400); RED BLOOD COUNT 2.96 M/uL (4.7-6.1); WHITE BLOOD COUNT 6.92 K/uL (4.8-10.8)
[2016-08-14 19:55] LABS: ISTAT ALLEN TEST Pass; ISTAT ARTERIAL BLOOD GAS HCO3 35 meq/L (19-24); ISTAT ARTERIAL BLOOD GAS PCO2 52 mmHg (35-46); ISTAT ARTERIAL BLOOD GAS PO2 80 mmHg (80-95); ISTAT ARTERIAL BLOOD GAS pH 7.43 (7.35-7.45); ISTAT CARBON DIOXIDE 36 mEq/l (24-31); ISTAT DELIVERY SYSTEM Cannula; ISTAT SITE R Radial
[2016-08-14] MEDS: NITROGLYCERIN OINT 2% 1GM PACKET EXT SCH (20:06)
--- NOTE | 2016-08-14 20:06 | DIAGNOSTIC IMAGING REPORT ---
CHEST ONE VIEW PORTABLE CLINICAL HISTORY: sudden shortness of breath dyspnea COMPARISON STUDY: 08/11/2016 FINDINGS: Slightly progressive findings of pulmonary edema. A somewhat progressive effusion and a consolidative change left base. Moderate stable cardia megaly. IMPRESSION: Moderately progressive pulmonary edema. Progressive left effusion. Electronically signed by: Kaleb Saldaña M.D. 08/14/2016 8:05 PM Dictated Date/Time: 08/14/2016 8:04 PM
[2016-08-14 20:10] LABS: COMPLETE YES; HYPOCHROMIA PRESENT; POLYCHROMASIA 1+
[2016-08-14 20:11] LABS: INR 2.8 (0.9-1.1); PARTIAL THROMBOPLASTIN RATIO 1.9; PROTHROMBIN TIME (PATIENT) 31.5 SECONDS (9.0-12.0)
[2016-08-14 20:20] LABS: BUN/CREATININE RATIO 34.1 (10-20); CALCIUM 7.9 mg/dl (8.5-10.1); CREATININE 0.75 mg/dl (0.60-1.40); POTASSIUM 4.6 mmol/L (3.5-5.1)
[2016-08-14 20:22] LABS: ALB/GLOB RATIO 0.6 (0.9-2); PHOSPHORUS 3.5 mg/dl (2.5-4.9)
--- NOTE | 2016-08-14 20:27 | Progress Note ---
Progress Note Paged by RN to come see patient as he was just "feeling off". HR 103, sats 96% on 2L other vitals within normal limits. Subjective: Patient denies chest pain, abdominal pain, nausea, vomiting, sweating, constipation or diarrhea. He feels he is unable to take a deep breath and it is progressively getting worse. No relationship to eating. BM today without black stool. Objective A: patent, no obstruction, no stridor B: Sats 96% on 2L, RR 22, decreased breath sounds on left side, crackles throughout anterior and posteriorly, trachea central. ABG stable (better O2 than previous). CXR worsening pleural effusion on left. Duonebs started due to Hx of COPD C: cap refill <2s, Temp 36.6, HR 103, BP 116/67, UO 0.82 ml/kg/hr. Quiet HS 1+ 2 , no murmurs, irregularly irregular rhythm. Raised JVD. B/L leg edema present. EKG - atrial fibrillation rate 96bpm, no overt ischemic changes from previous. No IV access initially, he was in a side room away from the nurses desk so help was limited and patient was complaining of increasing shortness of breath therefore code jocelynn was called. IV access x2 (18G,20G) done by IV team and labs drawn. Lasix held until results of CXR seen. D: BM 162, Alert E: Abdo SNT, BS +ve, no facial droop, alert and speaking normally, left leg swelling worse than right side, however his INR is currently supratherapeutic on warfarin (currently being held) Differential of COPD exacerbation, aspiration pneumonia, pneumothorax, DC, pulmonary edema, plural effusions, GI bleed. Unlikely PE in context of high INR. Appears relatively stable with vital signs and ABG so will hold off on BiPAP currently as previous intolerance to this. Plan - CBC, CMP, Trop, PTINR, PTT, type and save. Additional trop in 1 hour - Lasix 40 mg IV stat - Nitro paste 0.5 inch stat - Transfer to telemetry - Plan discussed with Dr Poon and patient handed over to night resident (Dr Pitt who was part of the code) who will re-examine patient after moving to telemetry. (Jaylen Squires MD) Resident Tracking Resident Involvement: Resident Care Provided Care Provided: Adult [facility] (Jaylen Squires MD)
[2016-08-14] MEDS: TAMSULOSIN HCL 0.4 MG CAP PO SCH (20:34)
[2016-08-14] MEDS: INSULIN GLARGINE SOLOSTAR 100 UNITS/ML 3 ML PEN SC SCH (20:38)
[2016-08-15] VITALS (18 sets, daily range): BP systolic 100–138; BP diastolic 66–88; PULSE 60–108; TEMP 36.4–36.8; O2SAT 92–99
[2016-08-15] MEDS: ALBUT/IPRATROP 3MG/0.5MG NEB 3 ML VIAL INH SCH ×5 (00:11→19:41)
[2016-08-15] MEDS: NITROGLYCERIN OINT 2% 1GM PACKET EXT SCH ×4 (01:58→20:41)
[2016-08-15] MEDS ORDERED: FUROSEMIDE INJ 20 MG in SYRINGE 0 ML IV ONE (05:15)
[2016-08-15] MEDS: LEVOTHYROXINE 25 MCG TAB PO SCH (05:17)
--- NOTE | 2016-08-15 05:23 | Progress Note ---
Progress Note Approximately 19:00 on 08/14/2016, patient was experiencing increasing shortness of breath. Code purple was called. Patient had flash pulmonary edema on chronic diastolic CHF. Please Dr. Jaylen Squires's full note: ------ Patient was reassessed at the bedside approximately 21:00 Patient told nurse he was feeling much better. Patient was asleep when I arrived at the bedside. Nurse notes vital signs within normal limits, patient is looking remarkably better compared to when he first arrived in telemetry. Urine catheter bag containing, 800 mL of clear yellow urine Troponin resulted: Stable at 0.028 PTT result elevated at 48.9. No evidence of active bleeding at this time. Hemoccult known to be positive Plan: Hemoglobin reviewed. PRBCs typed and crossed, 3 units on hold. Transfuse 1 unit now at 75 mL an hour ------ 22:00 Troponin resulted at 0.023. Patient resting comfortably. Hemodynamics stable ------ 04:55 1 unit PRBC transfusion completed Nursing notes patient one episode of loose stool, possibly with some bright red blood. Remained hemodynamic stable. Re-assessed patient at bedside. Patient denies any pain. Patient feels only minimally short of breath. Feels much improved since he was initially transferred from 4th floor yesterday Cardiac exam: S1 and S2 with no added sounds or murmurs JVD 3 cm, lower extremity edema 2+ custodial up the legs bilaterally Respiratory exam: Coarse breath sounds anteriorly. Patient lying supine, therefore difficult to auscultate entire posterior lung rodriguez Plan: - Awaiting repeat labs drawn at 05:00 - Assess H&H since H&H - Given elevated PTT, I have added liver function testing and an albumin, to evaluate synthetic function - Repeat troponin pending with morning labs - Patient is a 70 evidence of right-sided fluid overload - Given that we have infused with the unit of blood, I will diuresis with an additional 20 mg of Lasix IV
[2016-08-15 05:49] LABS: BASO % 0.1 %; BASO ABS # 0.01 K/uL (0-0.2); EOS % 0.6 %; IG% 0.4 %; LYMPH % 11.4 %; LYMPH ABS # 0.89 K/uL (1.2-3.4); MEAN CORPUSCULAR HEMOGLOBIN 25.8 pg (25-34); MEAN PLATELET VOLUME 9.4 fL (7.4-10.4); MONO % 16.9 %; NEUT % 70.6 %; PLATELET COUNT 178 K/uL (130-400); RED BLOOD COUNT 3.37 M/uL (4.7-6.1)
[2016-08-15 05:53] LABS: INR 2.6 (0.9-1.1); PARTIAL THROMBOPLASTIN RATIO 1.8; PROTHROMBIN TIME (PATIENT) 29.4 SECONDS (9.0-12.0)
[2016-08-15 05:59] LABS: BUN/CREATININE RATIO 43.7 (10-20); CALCIUM 7.9 mg/dl (8.5-10.1); CREATININE 0.58 mg/dl (0.60-1.40); POTASSIUM 4.6 mmol/L (3.5-5.1)
[2016-08-15 06:04] LABS: ALB/GLOB RATIO 0.6 (0.9-2)
[2016-08-15 06:28] LABS: COMPLETE YES; POLYCHROMASIA 1+
[2016-08-15] MEDS: ACETYLCYSTEINE 20% INHAL SOLN ***DISPENSED BY RESP. INH SCH ×2 (07:01→19:41)
[2016-08-15] MEDS: DORNASE ALFA (2500U) 2.5MG/2.5ML INH SCH ×2 (07:02→19:41)
[2016-08-15 07:23] LABS: MEAN CELL VOLUME 84.1 fL (80-100); MEAN CORPUSCULAR HGB CONC 31.4 g/dl (32-36)
[2016-08-15] MEDS: SUCRALFATE 1 GM/10 ML UDC PO SCH ×4 (07:50→20:41)
[2016-08-15] MEDS: GUAIFENESIN 600 MG TABCR PO SCH ×2 (07:51→20:41)
[2016-08-15] MEDS: CYANOCOBALAMIN 500 MCG TAB (VIT B-12) PO SCH (07:51)
[2016-08-15] MEDS: GABAPENTIN 300 MG CAP PO SCH ×2 (07:51→20:41)
[2016-08-15] MEDS: PANTOprazole SOD 40 MG TAB PO SCH (07:51)
[2016-08-15] MEDS: FERROUS SULFATE 325 MG TAB PO SCH ×2 (07:52→17:34)
[2016-08-15] MEDS: CARVEDILOL 25 MG TAB PO SCH ×2 (07:53→20:42)
[2016-08-15] MEDS: PAROXETINE 20 MG TAB PO SCH ×2 (07:53→20:41)
[2016-08-15] MEDS: BUDESONIDE/FORMOTEROL FUMARATE 160/4.5 60 PUFFS/INHALER INH SCH ×2 (07:53→20:42)
[2016-08-15] MEDS: INSULIN ASPART 100 UNITS/ML 3 ML PEN SC SCH ×4 (07:57→21:00)
[2016-08-15] MEDS ORDERED: DILTIAZEM HCL 120 MG EXT REL CAP PO SCH ×2 (08:00)
--- NOTE | 2016-08-15 12:00 | Family Medicine Progress Note ---
Progress Note Date of Service Aug 15, 2016. Subjective Pt evaluation today including: conversation w/ patient, physical exam, chart review, lab review, review of studies, review of inpatient medication list Pain: denies pain PO Intake: adequate Overnight, patient had episode of Shortness of breath, CXR showed increased pleural effusion, code purple was called, pt got IV acces and was given 40 mg Lasix. He later received another 20 Lasix. Pt also was transfused overnight with a hemoglobin of 7.7, Hb improved post-transfusion. Currently patient, has minimal recollection of the events transpired overnight and states he's been feel well and improved in general. He denied SOB, and CP although still reported a dry cough. Constitutional: No chills, No fatigue, No fever, No weakness Respiratory: + cough (dry), No shortness of breath Cardiovascular: No PND, No chest pain, No edema, No palpitations Abdomen: No constipation, No diarrhea, No nausea, No pain, No vomiting Male : + problem reported (has catheter) Skin: No itch, No rash Medications Current Inpatient Medications Medications (Trade) Dose Ordered Sig/Sujatha Route Start Time Stop Time Status Last Admin Dose Admin Acetaminophen (Tylenol Tab) 650 mg Q4H PRN PO 07/31/16 01:15 08/30/16 01:14 08/09/16 17:15 650 MG Al Hydrox/Mg Hydrox/Simethicone (Maalox Max Susp) 15 ml Q4H PRN PO 07/31/16 01:15 08/30/16 01:14 Ondansetron HCl (Zofran Inj) 4 mg Q6H PRN IV 07/31/16 01:15 08/30/16 01:14 Nitroglycerin (Nitrostat Tab) 0.4 mg UD PRN SL 07/31/16 01:15 08/30/16 01:14 08/13/16 23:32 0.4 MG Bisacodyl (Dulcolax Supp) 5 mg PRN PRN NV 07/31/16 01:30 08/30/16 01:29 07/31/16 20:24 5 MG Cyanocobalamin (Vitamin B-12 Tab) 500 mcg DAILY PO 07/31/16 09:00 08/30/16 08:59 08/15/16 07:51 500 MCG Levothyroxine Sodium (Synthroid Tab) 25 mcg DAILYBB PO 07/31/16 06:00 08/30/16 05:59 08/15/16 05:17 25 MCG Magnesium Hydroxide (Milk Of Magnesia Susp) 30 ml HS PRN PO 07/31/16 01:30 08/30/16 01:29 08/13/16 18:09 30 ML Sodium Biphosphate/ Sodium Phosphate (Fleet Enema) 1 ml DAILY PRN NV 07/31/16 01:30 08/30/16 01:29 Sucralfate (Carafate Susp) 1 gm ACHS PO 07/31/16 07:00 08/30/16 06:59 08/15/16 11:52 1 GM Tamsulosin HCl (Flomax Cap) 0.4 mg HS PO 07/31/16 21:00 08/30/16 20:59 08/14/16 20:34 0.4 MG Miconazole Nitrate (Desenex Powder) 1 appln PRN PRN EXT 07/31/16 11:45 08/30/16 11:44 07/31/16 22:00 1 APPLN Pantoprazole Sodium (Protonix Tab) 40 mg QAM PO 08/01/16 09:00 08/31/16 08:59 08/15/16 07:51 40 MG Lorazepam (Ativan Tab) 0.5 mg Q6 PRN PO 08/01/16 12:15 08/31/16 12:14 08/13/16 23:54 0.5 MG Acetylcysteine (Mucomyst 20% Inh Soln) 3 ml BIDR INH 08/01/16 20:00 08/31/16 19:59 08/15/16 07:01 3 ML Dornase Alan (Pulmozyme Inhalation Soln 2.5ml Amp) 2.5 ml BIDR INH 08/02/16 20:00 09/01/16 19:59 08/15/16 07:02 2.5 ML Glucose (Glucose 40% Gel) UD PRN PO 08/02/16 22:15 09/01/16 22:14 Glucose (Glucose Chew Tab) 1 tabs UD PRN PO 08/02/16 22:15 09/01/16 22:14 Dextrose (Dextrose 50% 50ML Syringe) 50 ml UD PRN IV 08/02/16 22:15 09/01/16 22:14 Glucagon (Glucagon Inj) 1 mg UD PRN SQ 08/02/16 22:15 09/01/16 22:14 Carvedilol (Coreg Tab) 25 mg BID PO 08/03/16 09:00 09/02/16 08:59 08/15/16 07:53 25 MG Spironolactone (Aldactone Tab) 25 mg QAM PO 08/03/16 09:00 09/02/16 08:59 Future Hold 08/14/16 08:26 25 MG Docusate Sodium (coLACE CAP) 100 mg BID PRN PO 08/03/16 08:30 09/02/16 08:29 08/03/16 18:47 100 MG Insulin Aspart (novoLOG ASPART) SLIDING SCALE G... ACHS SC 08/03/16 16:00 09/02/16 15:59 08/15/16 11:55 5 UNITS Albuterol/ Ipratropium (Duoneb) 3 ml Q4RWA INH 08/06/16 16:00 09/05/16 15:59 08/15/16 11:02 3 ML Budesonide/ Formoterol Fumarate (Symbicort 160/ 4.5 Inh) 2 puffs BID INH 08/06/16 21:00 09/05/16 20:59 08/15/16 07:53 2 PUFFS Albuterol/ Ipratropium (Duoneb) 3 ml Q2R PRN INH 08/06/16 13:45 09/05/16 13:44 08/13/16 00:35 3 ML Warfarin Sodium (Coumadin Tab) 2 mg DAILY@1600 PO 08/09/16 16:00 09/08/16 15:59 Future Hold 08/12/16 15:36 2 MG Paroxetine HCl (pAXil TAB) 20 mg BID PO 08/11/16 21:00 09/10/16 20:59 08/15/16 07:53 20 MG Oxycodone HCl (Roxicodone Immediate Rel Tab) 5 mg Q4H PRN PO 08/11/16 10:15 08/25/16 10:14 08/14/16 08:53 5 MG Insulin Glargine (Lantus Solostar Pen) 17 unit HS SC 08/11/16 21:00 09/10/16 20:59 08/14/16 20:38 17 UNIT Gabapentin (Neurontin Cap) 300 mg BID PO 08/12/16 21:00 09/11/16 20:59 08/15/16 07:51 300 MG Guaifenesin (Mucinex Contr Rel Tab) 1,200 mg Q12 PO 08/12/16 21:00 09/11/16 20:59 08/15/16 07:51 1,200 MG Ferrous Sulfate (Feosol Tab) 325 mg BIDM PO 08/13/16 16:45 09/12/16 16:44 08/15/16 07:52 325 MG Nitroglycerin (Nitroglycerin 2% Oint) 0.5 inch Q6H EXT 08/14/16 20:00 09/13/16 19:40 08/15/16 07:54 0.5 INCH Objective Vital Signs Date Time Temp Pulse Resp B/P Pulse Ox O2 Delivery O2 Flow Rate FiO2 08/15/16 11:34 36.5 83 20 122/86 93 Nasal Cannula 4.0 08/15/16 11:02 60 20 96 Nasal Cannula 4.0 08/15/16 08:00 96 Nasal Cannula 2.0 08/15/16 07:55 36.7 85 20 124/81 94 2.0 08/15/16 07:01 96 20 94 Nasal Cannula 2.0 08/15/16 04:00 96 Nasal Cannula 3.0 08/15/16 03:37 36.5 87 20 129/70 96 3.0 08/15/16 03:07 36.4 95 18 123/72 94 Nasal Cannula 3.0 08/15/16 02:37 36.4 73 18 126/72 94 3.0 08/15/16 01:37 36.8 90 20 100/66 95 3.0 08/15/16 00:37 36.5 89 20 115/72 94 3.0 08/15/16 00:12 101 18 93 Nasal Cannula 3.0 08/15/16 00:07 36.6 94 18 109/69 92 3.0 08/15/16 00:01 Nasal Cannula 2.0 08/14/16 22:55 36.7 90 16 109/66 93 Nasal Cannula 2.0 08/14/16 20:36 115/67 08/14/16 20:00 100 18 97 Nasal Cannula 2.0 08/14/16 18:42 36.6 103 18 116/67 97 Nasal Cannula 2.0 08/14/16 16:30 98 Nasal Cannula 2.0 08/14/16 15:28 82 18 96 Nasal Cannula 2.0 08/14/16 15:28 Nasal Cannula 08/14/16 14:53 36.4 97 20 119/75 98 Nasal Cannula 2.0 Physical Exam General Appearance: WD/WN, no apparent distress Eyes: normal inspection, PERRL, EOMI ENT: hearing grossly normal, pharynx normal Neck: supple, no adenopathy, no JVD, trachea midline Respiratory/Chest: lungs clear, normal breath sounds, no respiratory distress Cardiovascular: regular rate, rhythm, no edema, no murmur Abdomen: normal bowel sounds, non tender, soft Extremities: no pedal edema, no calf tenderness Neurologic/Psychiatric: alert, normal mood/affect, oriented x 3 Skin: normal color, warm/dry, no rash Laboratory Results Results Past 24 Hours Test 08/14/16 16:43 08/14/16 19:31 08/14/16 19:32 08/14/16 19:38 Range/Units Bedside Glucose 119 162 70-99 mg/dl White Blood Count 6.92 4.8-10.8 K/uL Red Blood Count 2.96 4.7-6.1 M/uL Hemoglobin 7.7 14.0-18.0 g/dL Hematocrit 24.8 42-52 % Mean Corpuscular Volume 83.8 80-100 fL Mean Corpuscular Hemoglobin 26.0 25-34 pg Mean Corpuscular Hemoglobin Concent 31.0 32-36 g/dl Platelet Count 195 130-400 K/uL Mean Platelet Volume 9.8 7.4-10.4 fL Neutrophils (%) (Auto) 73.2 % Lymphocytes (%) (Auto) 12.7 % Monocytes (%) (Auto) 12.7 % Eosinophils (%) (Auto) 1.0 % Basophils (%) (Auto) 0.1 % Neutrophils # (Auto) 5.06 1.4-6.5 K/uL Lymphocytes # (Auto) 0.88 1.2-3.4 K/uL Monocytes # (Auto) 0.88 0.11-0.59 K/uL Eosinophils # (Auto) 0.07 0-0.5 K/uL Basophils # (Auto) 0.01 0-0.2 K/uL RDW Standard Deviation 51.1 36.4-46.3 fL RDW Coefficient of Variation 16.7 11.5-14.5 % Immature Granulocyte % (Auto) 0.3 % Immature Granulocyte # (Auto) 0.02 0.00-0.02 K/uL Polychromasia 1+ Hypochromasia PRESENT Prothrombin Time 31.5 9.0-12.0 SECONDS Prothromb Time International Ratio 2.8 0.9-1.1 Activated Partial Thromboplast Time 48.9 21.0-31.0 SECONDS Partial Thromboplastin Ratio 1.9 Sodium Level 138 136-145 mmol/L Potassium Level 4.6 3.5-5.1 mmol/L Chloride Level 97 98-107 mmol/L Carbon Dioxide Level 35 21-32 mmol/L Anion Gap 6.0 3-11 mmol/L Blood Urea Nitrogen 26 7-18 mg/dl Creatinine 0.75 0.60-1.40 mg/dl Est Creatinine Clear Calc Drug Dose 107.4 ml/min Estimated GFR () 106.2 Estimated GFR (Non- 91.6 BUN/Creatinine Ratio 34.1 10-20 Random Glucose 120 70-99 mg/dl Calcium Level 7.9 8.5-10.1 mg/dl Phosphorus Level 3.5 2.5-4.9 mg/dl Magnesium Level 2.0 1.8-2.4 mg/dl Total Bilirubin 0.2 0.2-1 mg/dl Aspartate Amino Transf (AST/SGOT) 11 15-37 U/L Alanine Aminotransferase (ALT/SGPT) 15 12-78 U/L Alkaline Phosphatase 128 45-117 U/L Troponin I 0.028 0-0.045 ng/ml Total Protein 5.6 6.4-8.2 gm/dl Albumin 2.0 3.4-5.0 gm/dl Globulin 3.6 2.5-4.0 gm/dl Albumin/Globulin Ratio 0.6 0.9-2 Blood Gas Sample Site R Radial Bedside Blood Gas pH (LAB) 7.43 7.35-7.45 Bedside Blood Gas pCO2 (LAB) 52 35-46 mmHg Bedside Blood Gas pO2 (LAB) 80 80-95 mmHg Bedside Blood Gas HCO3 (LAB) 35 19-24 meq/L Bedside Blood Gas Total CO2 36 24-31 mEq/l Bedside Blood Gas Base Excess (LAB) 10.0 -9-1.8 meq/L Bedside Blood Gas O2 Saturation 96.0 90-95 % Kranthi Test Pass Oxygen Delivery Device Cannula Test 08/14/16 22:04 08/15/16 05:12 08/15/16 06:47 08/15/16 10:09 Range/Units Troponin I 0.023 0.027 0-0.045 ng/ml White Blood Count 7.80 4.8-10.8 K/uL Red Blood Count 3.37 4.7-6.1 M/uL Hemoglobin 8.8 8.4 14.0-18.0 g/dL Hematocrit 28.0 27.0 42-52 % Mean Corpuscular Volume 84.1 80-100 fL Mean Corpuscular Hemoglobin 25.8 25-34 pg Mean Corpuscular Hemoglobin Concent 31.4 32-36 g/dl Platelet Count 178 130-400 K/uL Mean Platelet Volume 9.4 7.4-10.4 fL Neutrophils (%) (Auto) 70.6 % Lymphocytes (%) (Auto) 11.4 % Monocytes (%) (Auto) 16.9 % Eosinophils (%) (Auto) 0.6 % Basophils (%) (Auto) 0.1 % Neutrophils # (Auto) 5.50 1.4-6.5 K/uL Lymphocytes # (Auto) 0.89 1.2-3.4 K/uL Monocytes # (Auto) 1.32 0.11-0.59 K/uL Eosinophils # (Auto) 0.05 0-0.5 K/uL Basophils # (Auto) 0.01 0-0.2 K/uL RDW Standard Deviation 49.2 36.4-46.3 fL RDW Coefficient of Variation 16.2 11.5-14.5 % Immature Granulocyte % (Auto) 0.4 % Immature Granulocyte # (Auto) 0.03 0.00-0.02 K/uL Polychromasia 1+ Prothrombin Time 29.4 9.0-12.0 SECONDS Prothromb Time International Ratio 2.6 0.9-1.1 Activated Partial Thromboplast Time 46.5 21.0-31.0 SECONDS Partial Thromboplastin Ratio 1.8 Sodium Level 140 136-145 mmol/L Potassium Level 4.6 3.5-5.1 mmol/L Chloride Level 99 98-107 mmol/L Carbon Dioxide Level 37 21-32 mmol/L Anion Gap 4.0 3-11 mmol/L Blood Urea Nitrogen 25 7-18 mg/dl Creatinine 0.58 0.60-1.40 mg/dl Est Creatinine Clear Calc Drug Dose 126.4 ml/min Estimated GFR () 118.1 Estimated GFR (Non- 101.9 BUN/Creatinine Ratio 43.7 10-20 Random Glucose 84 70-99 mg/dl Calcium Level 7.9 8.5-10.1 mg/dl Total Bilirubin 0.2 0.2-1 mg/dl Aspartate Amino Transf (AST/SGOT) 8 15-37 U/L Alanine Aminotransferase (ALT/SGPT) 14 12-78 U/L Alkaline Phosphatase 120 45-117 U/L Total Protein 5.4 6.4-8.2 gm/dl Albumin 2.0 3.4-5.0 gm/dl Globulin 3.4 2.5-4.0 gm/dl Albumin/Globulin Ratio 0.6 0.9-2 Bedside Glucose 84 70-99 mg/dl Test 08/15/16 11:22 Range/Units Bedside Glucose 157 70-99 mg/dl Assessment and Plan 71 yo M w/ hx of COPD . recurrent pleural effusions, Diastolic CHF, recent admission of PNA and recent hospitalization for GI Bleed p/w SOB , admitted for Acute Hypoxic Resp. Failure, Toxic Encephalopathy, Anemia Acute on Chronic hypoxic respiratory failure - improved from arrival, 97 % on 2L NC - CXR (08/11/16): Bilateral pleural effusions, right larger than left. - Pt refused Video swallow study to rule out aspiration. - s/p 7 days Levaquin, s/p 2 days of Zosyn. - Continue DuoNeb INH Q4 Scheduled, Continue Symbicort BID and Pulmozyme BID. COPD -stable - likely chronic CO2 retainer due to COPD leading to chronic Respiratory Acidosis with metabolic compensation - Bicarb 37<--35<--5 36 <--35 - ABG confirmed Lethargy likely Toxic Encephalopathy due to medication -resolved, AOx3 -Ambien remains held -recently Gabapentin had been increased to 600 mg BID, dose was cut in half for \\e contribution to lethargy - Patient alertness significantly improved. Acute on Chronic Diastolic CHF, Pleural effusions - CHF protocols in place: fluid restriction limit to 1.5L, monitor I/O and weight change, assess hydration status. -patient diuresing well. Baseline Weight 195 lbs per patient. - Continue Aldactone 25mg daily. -Diuresing well , -2.3 L over last 24 hrs, s/p 40 mg Lasix x 1 yesterday, gave additional; 20mg Lasix, then 60 mg Lasix today Left pleural effusion - s/p tube thoracostomy 08/03/16. -Chest tube removed on 04/15 Anemia - Hemoglobin near baseline - Last FOBT Positive, previous 3 were negative - F/u folate, b12, Iron studies - Continue to monitor. B12, Folate wnl - Iron studies show Low Iron, NL Ferritin. Ferritin likely elevated from baseline as an acute phase reactant - Continue Iron supplementation ( Ferrous sulfate 325 mg BID) -Follow CBC Productive cough, course breath sounds - Continue Guaifenesin 200 mg BID Afib with RVR - rate controlled - Continue Coreg 25mg BID, - switched from IR to Extended release Diltiazem -INR 3.6 -->3.3-->2.8-->2.6 -Coumadin remains held -F/U repeat INR Neuropathic pain 2/2 DM2 - unchanged - previously Increased Gabapentin to 600mg BID - decreased to 300 md BID due ot possible contribution to lethargy -patient has not experienced worsening of neuropathic symptoms with dosage reduction Chronic Right heel ulceration and Left Forearm Skin Tear - Continue Woundcare DM2 - managed per glycemic consult - Continue Lantus 17 unit - Aspart sliding scale with AC/HS BSG Recent H/O severe GI bleed requiring blood transfusion - Continue Carafate 1g and Protonix 40mg daily -Repeat FOBT Depression - Continue Paroxetine 20mg to BID BPH - Continue tamsulosin 0.4mg daily. DVT Prophylaxis - - Coumadin held for elevated INR Code Status - DNR Pt/OT Disposition: accepted at [facility] on d/c Resident Physician Supervision Note: I was present with PGY1 Dr. Noah Parekh during the history and exam. I discussed the case with the resident and agree with the findings and plan as documented in the note. Any exceptions or clarifications are listed here: exam with JVD and wheezing. Events of last night reviewed. Despite continuing to have net negative fluid balance every day and nearly 20+ liters of fluid out since admission he had worsening sob last evening. This AM he states "I feel fine." After Tx to telemetry he received 1 unit of PRBCs w/o incident. vitals - stable, o2 sats stable I/O - net negative 5 liters over last 48 hours gen - unchanged overall appearance neck - JVD present heart - irregular, s1, s2 lungs - good airation, course BS with wheezing b/l but actually improved from yesterday, scant rales bases abd - soft ext - no edema today labs - Hb 8.8 Cr 0.5 A/P: 1. acute/chronic resp failure - acute component multifactorial including COPD exac, recent pneumonia, CHF. acute worsening last night - I am unclear if this was from CHF or could he have aspirated following dinner?? will ask speech to reeval cont to brady 2. acute/chronic diastolic CHF - continue IV lasix BID weight approaching baseline dry weight of 195 pounds 3. COPD with recent exacerbation - latter resolved 4. anemia - s/p 1 unit PRBCs - H/H stable this am daily CBC 5. a. fib - rates acceptable today; daily INR; hold coumadin again today but anticipate resume tomorrow Documented By: Jaylen Benavides MD Continued [facility] stay due to: home environment unsafe for pt Discharge planning: correction facility Resident Tracking Resident Involvement: Resident Care Provided Care Provided: Adult Hospital Medicine
[2016-08-15] MEDS ORDERED: FUROSEMIDE 40 MG/4 ML VIAL IV SCH (16:00)
[2016-08-15] MEDS ORDERED: FUROSEMIDE INJ 40 MG in SYRINGE 0 ML IV ONE (16:00)
[2016-08-15] MEDS ORDERED: NURSING VERBAL MED ORDER ONE (16:00)
[2016-08-15 16:05] LABS: HEMATOCRIT 27.4 % (42-52)
[2016-08-15] MEDS ORDERED: FUROSEMIDE INJ 60 MG in SYRINGE 0 ML IV ONE (16:15)
[2016-08-15] MEDS: OXYCODONE HCL IR 5 MG TAB (IMMEDIATE RELEASE) PO PRN (18:44)
[2016-08-15] MEDS: TAMSULOSIN HCL 0.4 MG CAP PO SCH (20:42)
[2016-08-15] MEDS: INSULIN GLARGINE SOLOSTAR 100 UNITS/ML 3 ML PEN SC SCH (21:00)
[2016-08-16] VITALS (16 sets, daily range): BP systolic 100–133; BP diastolic 60–77; PULSE 68–108; TEMP 36.4–36.7; O2SAT 90–100
[2016-08-16] MEDS: NITROGLYCERIN OINT 2% 1GM PACKET EXT SCH ×4 (02:00→20:10)
[2016-08-16] MEDS: LEVOTHYROXINE 25 MCG TAB PO SCH (06:41)
[2016-08-16 07:00] LABS: HEMATOCRIT 28.5 % (42-52); MEAN CELL VOLUME 83.3 fL (80-100); MEAN CORPUSCULAR HEMOGLOBIN 25.7 pg (25-34); MEAN CORPUSCULAR HGB CONC 30.9 g/dl (32-36); MEAN PLATELET VOLUME 9.6 fL (7.4-10.4); PLATELET COUNT 199 K/uL (130-400); RED BLOOD COUNT 3.42 M/uL (4.7-6.1); WHITE BLOOD COUNT 6.59 K/uL (4.8-10.8)
[2016-08-16] MEDS: ALBUT/IPRATROP 3MG/0.5MG NEB 3 ML VIAL INH SCH ×4 (07:03→20:05)
[2016-08-16] MEDS: ACETYLCYSTEINE 20% INHAL SOLN ***DISPENSED BY RESP. INH SCH ×2 (07:03→20:05)
[2016-08-16] MEDS: DORNASE ALFA (2500U) 2.5MG/2.5ML INH SCH ×2 (07:03→20:07)
[2016-08-16 07:06] LABS: INR 1.9 (0.9-1.1); PROTHROMBIN TIME (PATIENT) 20.6 SECONDS (9.0-12.0)
--- NOTE | 2016-08-16 07:25 | Family Medicine Progress Note ---
Progress Note Date of Service Aug 16, 2016. Subjective Pt evaluation today including: conversation w/ patient, physical exam, chart review, lab review, review of studies, review of inpatient medication list Pain: ongoing neuropathic pain in the hands and feet, unchanged PO Intake: adequate Voiding: krueger catheter in place Patient had no new complaints. No acute events overnight He continues to report productive cough. Denies SOB, CP, Palpitation. Neuropathic pain of hands and feet remains Additional Comments: Constitutional: No chills, No fatigue, No fever, No weakness Respiratory: + cough (dry), No shortness of breath Cardiovascular: No PND, No chest pain, No edema, No palpitations Abdomen: No constipation, No diarrhea, No nausea, No pain, No vomiting Male : + problem reported (has catheter) Skin: No itch, No rash Medications Current Inpatient Medications Medications (Trade) Dose Ordered Sig/Sujatha Route Start Time Stop Time Status Last Admin Dose Admin Acetaminophen (Tylenol Tab) 650 mg Q4H PRN PO 07/31/16 01:15 08/30/16 01:14 08/09/16 17:15 650 MG Al Hydrox/Mg Hydrox/Simethicone (Maalox Max Susp) 15 ml Q4H PRN PO 07/31/16 01:15 08/30/16 01:14 Ondansetron HCl (Zofran Inj) 4 mg Q6H PRN IV 07/31/16 01:15 08/30/16 01:14 Nitroglycerin (Nitrostat Tab) 0.4 mg UD PRN SL 07/31/16 01:15 08/30/16 01:14 08/13/16 23:32 0.4 MG Bisacodyl (Dulcolax Supp) 5 mg PRN PRN WI 07/31/16 01:30 08/30/16 01:29 07/31/16 20:24 5 MG Cyanocobalamin (Vitamin B-12 Tab) 500 mcg DAILY PO 07/31/16 09:00 08/30/16 08:59 08/15/16 07:51 500 MCG Levothyroxine Sodium (Synthroid Tab) 25 mcg DAILYBB PO 07/31/16 06:00 08/30/16 05:59 08/16/16 06:41 25 MCG Magnesium Hydroxide (Milk Of Magnesia Susp) 30 ml HS PRN PO 07/31/16 01:30 3/3/17 01:29 08/13/16 18:09 30 ML Sodium Biphosphate/ Sodium Phosphate (Fleet Enema) 1 ml DAILY PRN WI 07/31/16 01:30 08/30/16 01:29 Sucralfate (Carafate Susp) 1 gm ACHS PO 07/31/16 07:00 08/30/16 06:59 08/15/16 20:41 1 GM Tamsulosin HCl (Flomax Cap) 0.4 mg HS PO 07/31/16 21:00 08/30/16 20:59 08/15/16 20:42 0.4 MG Miconazole Nitrate (Desenex Powder) 1 appln PRN PRN EXT 07/31/16 11:45 08/30/16 11:44 07/31/16 22:00 1 APPLN Pantoprazole Sodium (Protonix Tab) 40 mg QAM PO 08/01/16 09:00 08/31/16 08:59 08/15/16 07:51 40 MG Lorazepam (Ativan Tab) 0.5 mg Q6 PRN PO 08/01/16 12:15 08/31/16 12:14 08/13/16 23:54 0.5 MG Acetylcysteine (Mucomyst 20% Inh Soln) 3 ml BIDR INH 08/01/16 20:00 08/31/16 19:59 08/16/16 07:03 3 ML Dornase Alan (Pulmozyme Inhalation Soln 2.5ml Amp) 2.5 ml BIDR INH 08/02/16 20:00 09/01/16 19:59 08/16/16 07:03 2.5 ML Glucose (Glucose 40% Gel) UD PRN PO 08/02/16 22:15 09/01/16 22:14 Glucose (Glucose Chew Tab) 1 tabs UD PRN PO 08/02/16 22:15 09/01/16 22:14 Dextrose (Dextrose 50% 50ML Syringe) 50 ml UD PRN IV 08/02/16 22:15 09/01/16 22:14 Glucagon (Glucagon Inj) 1 mg UD PRN SQ 08/02/16 22:15 09/01/16 22:14 Carvedilol (Coreg Tab) 25 mg BID PO 08/03/16 09:00 09/02/16 08:59 08/15/16 20:42 25 MG Spironolactone (Aldactone Tab) 25 mg QAM PO 08/03/16 09:00 09/02/16 08:59 Future Hold 08/14/16 08:26 25 MG Docusate Sodium (coLACE CAP) 100 mg BID PRN PO 08/03/16 08:30 09/02/16 08:29 08/03/16 18:47 100 MG Insulin Aspart (novoLOG ASPART) SLIDING SCALE G... ACHS SC 08/03/16 16:00 09/02/16 15:59 08/15/16 21:00 9 UNITS Albuterol/ Ipratropium (Duoneb) 3 ml Q4RWA INH 08/06/16 16:00 09/05/16 15:59 08/16/16 07:03 3 ML Budesonide/ Formoterol Fumarate (Symbicort 160/ 4.5 Inh) 2 puffs BID INH 08/06/16 21:00 09/05/16 20:59 08/15/16 20:42 2 PUFFS Albuterol/ Ipratropium (Duoneb) 3 ml Q2R PRN INH 08/06/16 13:45 09/05/16 13:44 08/13/16 00:35 3 ML Warfarin Sodium (Coumadin Tab) 2 mg DAILY@1600 PO 08/09/16 16:00 09/08/16 15:59 Future Hold 08/12/16 15:36 2 MG Paroxetine HCl (pAXil TAB) 20 mg BID PO 08/11/16 21:00 09/10/16 20:59 08/15/16 20:41 20 MG Oxycodone HCl (Roxicodone Immediate Rel Tab) 5 mg Q4H PRN PO 08/11/16 10:15 08/25/16 10:14 08/15/16 18:44 5 MG Insulin Glargine (Lantus Solostar Pen) 17 unit HS SC 08/11/16 21:00 09/10/16 20:59 08/15/16 21:00 17 UNIT Gabapentin (Neurontin Cap) 300 mg BID PO 08/12/16 21:00 09/11/16 20:59 08/15/16 20:41 300 MG Guaifenesin (Mucinex Contr Rel Tab) 1,200 mg Q12 PO 08/12/16 21:00 09/11/16 20:59 08/15/16 20:41 1,200 MG Ferrous Sulfate (Feosol Tab) 325 mg BIDM PO 08/13/16 16:45 09/12/16 16:44 08/15/16 17:34 325 MG Nitroglycerin (Nitroglycerin 2% Oint) 0.5 inch Q6H EXT 08/14/16 20:00 09/13/16 19:40 08/16/16 02:00 0.5 INCH Objective Vital Signs Date Time Temp Pulse Resp B/P Pulse Ox O2 Delivery O2 Flow Rate FiO2 08/16/16 07:03 99 20 90 Nasal Cannula 3.0 08/16/16 04:15 36.7 89 16 111/73 95 Nasal Cannula 2.0 Humidified Air 08/16/16 04:00 Nasal Cannula 3.0 08/16/16 00:18 36.6 108 20 100/60 98 Nasal Cannula 2.0 08/16/16 00:00 Nasal Cannula 3.0 08/15/16 20:00 Nasal Cannula 3.0 08/15/16 19:49 36.4 105 20 128/67 99 Nasal Cannula 4.0 08/15/16 19:45 107 20 98 Nasal Cannula 4.0 08/15/16 16:00 Nasal Cannula 3.0 08/15/16 15:52 36.4 108 22 138/88 94 Nasal Cannula 3.0 08/15/16 15:15 68 20 96 Nasal Cannula 4.0 08/15/16 12:00 96 Nasal Cannula 2.0 08/15/16 11:34 36.5 83 20 122/86 93 Nasal Cannula 4.0 08/15/16 11:02 60 20 96 Nasal Cannula 4.0 08/15/16 08:00 96 Nasal Cannula 2.0 08/15/16 07:55 36.7 85 20 124/81 94 2.0 Physical Exam Notes: General Appearance: WD/WN, no apparent distress Eyes: normal inspection, PERRL, EOMI ENT: hearing grossly normal, pharynx normal Neck: supple, no adenopathy, no JVD, trachea midline Respiratory/Chest: lungs clear, normal breath sounds, no respiratory distress Cardiovascular: regular rate, rhythm, no edema, no murmur Abdomen: normal bowel sounds, non tender, soft Extremities: no pedal edema, no calf tenderness Neurologic/Psychiatric: alert, normal mood/affect, oriented x 3 Skin: multiple areas of ecchymoses, warm/dry, no rash Laboratory Results Results Past 24 Hours Test 08/15/16 20:19 08/16/16 06:36 08/16/16 06:50 08/16/16 10:51 Range/Units Bedside Glucose 379 184 131 70-99 mg/dl White Blood Count 6.59 4.8-10.8 K/uL Red Blood Count 3.42 4.7-6.1 M/uL Hemoglobin 8.8 14.0-18.0 g/dL Hematocrit 28.5 42-52 % Mean Corpuscular Volume 83.3 80-100 fL Mean Corpuscular Hemoglobin 25.7 25-34 pg Mean Corpuscular Hemoglobin Concent 30.9 32-36 g/dl RDW Standard Deviation 50.6 36.4-46.3 fL RDW Coefficient of Variation 16.7 11.5-14.5 % Platelet Count 199 130-400 K/uL Mean Platelet Volume 9.6 7.4-10.4 fL Prothrombin Time 20.6 9.0-12.0 SECONDS Prothromb Time International Ratio 1.9 0.9-1.1 Sodium Level 138 136-145 mmol/L Potassium Level 4.5 3.5-5.1 mmol/L Chloride Level 98 98-107 mmol/L Carbon Dioxide Level 36 21-32 mmol/L Anion Gap 4.0 3-11 mmol/L Blood Urea Nitrogen 22 7-18 mg/dl Creatinine 0.52 0.60-1.40 mg/dl Est Creatinine Clear Calc Drug Dose 140.9 ml/min Estimated GFR () 123.5 Estimated GFR (Non- 106.5 BUN/Creatinine Ratio 42.6 10-20 Random Glucose 159 70-99 mg/dl Calcium Level 8.0 8.5-10.1 mg/dl Magnesium Level 2.0 1.8-2.4 mg/dl Test 08/16/16 16:03 Range/Units Bedside Glucose 152 70-99 mg/dl Assessment and Plan 71 yo M w/ hx of COPD . recurrent pleural effusions, Diastolic CHF, recent admission of PNA and recent hospitalization for GI Bleed p/w SOB , admitted for Acute Hypoxic Resp. Failure, Toxic Encephalopathy, Anemia Acute on Chronic hypoxic respiratory failure - improved from arrival, 97 % on 2L NC - CXR (08/11/16): Bilateral pleural effusions, right larger than left. - s/p 7 days Levaquin, s/p 2 days of Zosyn. - Continue DuoNeb INH Q4 Scheduled, Continue Symbicort BID and Pulmozyme BID. -Speech Therapy consulted for possible aspiration risk , F//u report COPD -stable - likely chronic CO2 retainer due to COPD leading to chronic Respiratory Acidosis with metabolic compensation - Bicarb 36<--37<--35<--35<-- 36 <--35 - ABG confirmed Lethargy likely Toxic Encephalopathy due to medication -resolved, AOx3 -Ambien remains held -recently Gabapentin had been increased to 600 mg BID, dose was cut in half for \e contribution to lethargy - Patient alertness significantly improved. Acute on Chronic Diastolic CHF, Pleural effusions - CHF protocols in place: fluid restriction limit to 1.5L, monitor I/O and weight change, assess hydration status. -patient diuresing well. Baseline Weight 195 lbs per patient. - Continue Aldactone 25mg daily. -Diuresing well , -1.6 L over last 24 hrs, given 40 mg Lasix this morning, Reassess in the evening and consider further diuresis Left pleural effusion - s/p tube thoracostomy 08/03/16. -Chest tube removed on 04/15 Anemia - Hemoglobin near baseline - Last FOBT Positive, previous 3 were negative - F/u folate, b12, Iron studies - Continue to monitor. B12, Folate wnl - Iron studies show Low Iron, NL Ferritin. Ferritin likely elevated from baseline as an acute phase reactant - Continue Iron supplementation ( Ferrous sulfate 325 mg BID) -Follow CBC Productive cough, course breath sounds - Continue Guaifenesin 200 mg BID Afib with RVR - rate controlled - Continue Coreg 25mg BID, - switched from IR to Extended release Diltiazem -INR 3.6 -->3.3-->2.8-->2.6 -Restart Coumadin at 2mg -F/U repeat INR Neuropathic pain 2/2 DM2 - unchanged - previously Increased Gabapentin to 600mg BID - decreased to 300 md BID due ot possible contribution to lethargy -patient has not experienced worsening of neuropathic symptoms with dosage reduction Chronic Right heel ulceration and Left Forearm Skin Tear - Continue Woundcare DM2 - managed per glycemic consult - Continue Lantus 17 unit - Aspart sliding scale with AC/HS BSG Recent H/O severe GI bleed requiring blood transfusion - Continue Carafate 1g and Protonix 40mg daily -Repeat FOBT Depression - Continue Paroxetine 20mg to BID BPH - Continue tamsulosin 0.4mg daily. DVT Prophylaxis - - Coumadin held for elevated INR Code Status - DNR Pt/OT Resident Physician Supervision Note: I was present with PGY1 Dr. Noah Parekh during the history and exam. I discussed the case with the resident and agree with the findings and plan as documented in the note. Any exceptions or clarifications are listed here: exam still with JVD and wheezing. COUMADIN TO BE RESTARTED TODAY. Pt feels good with minimal cough or congestion. vitals - stable, o2 sats stable I/O - net neg fluid balance last 24 hours once again 25 liters total net neg since admission gen - unchanged overall appearance neck - JVD present, maybe modestly improved heart - irregular, s1, s2 lungs - rales markedly improved; wheezing improved abd - soft, NT ext - trace edema b/l A/P: 1. acute/chronic resp failure - acute component multifactorial including COPD exac, recent pneumonia, CHF. acute component nearly resolved. 2. acute/chronic diastolic CHF - continue IV lasix BID today. weight approaching baseline dry weight of 195 pounds BMP, mag in am 3. COPD with recent exacerbation - latter resolved 4. anemia - s/p 1 unit PRBCs 2 days ago with stable H/H since 5. a. fib - rates acceptable today; daily INR; resume coumadin INR goal 2-3 but in light of GI bleed history would try to keep INR closer to 2 dispo - SNF Documented By: Jaylen Benavides MD Continued [facility] stay due to: home environment unsafe for pt Discharge planning: rehab hospital Resident Tracking Resident Involvement: Resident Care Provided Care Provided: Adult Hospital Medicine
[2016-08-16 07:32] LABS: BUN/CREATININE RATIO 42.6 (10-20); CREATININE 0.52 mg/dl (0.60-1.40); POTASSIUM 4.5 mmol/L (3.5-5.1)
[2016-08-16] MEDS: SUCRALFATE 1 GM/10 ML UDC PO SCH ×4 (08:02→20:11)
[2016-08-16] MEDS: GUAIFENESIN 600 MG TABCR PO SCH ×2 (08:03→20:12)
[2016-08-16] MEDS: FERROUS SULFATE 325 MG TAB PO SCH ×2 (08:03→17:02)
[2016-08-16] MEDS: CARVEDILOL 25 MG TAB PO SCH ×2 (08:05→20:13)
[2016-08-16] MEDS: BUDESONIDE/FORMOTEROL FUMARATE 160/4.5 60 PUFFS/INHALER INH SCH ×2 (08:05→20:11)
[2016-08-16] MEDS: PANTOprazole SOD 40 MG TAB PO SCH (08:05)
[2016-08-16] MEDS: CYANOCOBALAMIN 500 MCG TAB (VIT B-12) PO SCH (08:06)
[2016-08-16] MEDS: PAROXETINE 20 MG TAB PO SCH ×2 (08:06→20:13)
[2016-08-16] MEDS: GABAPENTIN 300 MG CAP PO SCH ×2 (08:06→20:12)
[2016-08-16] MEDS: INSULIN ASPART 100 UNITS/ML 3 ML PEN SC SCH ×4 (08:12→20:22)
[2016-08-16] MEDS ORDERED: FUROSEMIDE 40 MG/4 ML VIAL IV STA (08:20)
[2016-08-16] MEDS ORDERED: FUROSEMIDE INJ 40 MG in SYRINGE 0 ML IV ONE (08:30)
--- NOTE | 2016-08-16 11:40 | DIAGNOSTIC IMAGING REPORT ---
MODIFIED BARIUM SWALLOW CLINICAL HISTORY: Evaluate for aspiration. Hypoxia. COMPARISON STUDY: No previous studies for comparison. Fluoroscopy time: 1.9 minutes. FINDINGS: An anterior cervical spine fusion is incidentally noted. There was penetration with serial swallows of thin liquids. In addition, a small amount of tracheal aspiration was noted on the final swallow of thin liquids. There is no aspiration with nectar thick liquids or pudding consistencies. Premature spillage was noted. IMPRESSION: 1. Small amount of tracheal aspiration with thin liquids. No aspiration with the remainder of the consistencies. 2. Full recommendations by speech pathology to follow. Electronically signed by: Moody Stewart M.D. 08/16/2016 11:39 AM Dictated Date/Time: 08/16/2016 11:22 AM
[2016-08-16] MEDS: WARFARIN SOD 2 MG TAB PO SCH (15:55)
[2016-08-16] MEDS ORDERED: FUROSEMIDE INJ 20 MG in SYRINGE 0 ML IV ONE (17:30)
[2016-08-16] MEDS: OXYCODONE HCL IR 5 MG TAB (IMMEDIATE RELEASE) PO PRN (18:36)
[2016-08-16] MEDS: LORAZEPAM 0.5 MG TAB PO PRN (20:10)
[2016-08-16] MEDS: TAMSULOSIN HCL 0.4 MG CAP PO SCH (20:12)
[2016-08-16] MEDS: INSULIN GLARGINE SOLOSTAR 100 UNITS/ML 3 ML PEN SC SCH (20:23)
[2016-08-17] VITALS (11 sets, daily range): BP systolic 100–125; BP diastolic 65–75; PULSE 77–102; TEMP 36.3–36.7; O2SAT 93–99
[2016-08-17] MEDS: LEVOTHYROXINE 25 MCG TAB PO SCH (05:18)
[2016-08-17] MEDS: NITROGLYCERIN OINT 2% 1GM PACKET EXT SCH ×2 (05:18→07:44)
[2016-08-17] MEDS: ALBUT/IPRATROP 3MG/0.5MG NEB 3 ML VIAL INH SCH ×5 (05:50→19:45)
[2016-08-17 05:59] LABS: INR 1.6 (0.9-1.1); PROTHROMBIN TIME (PATIENT) 17.8 SECONDS (9.0-12.0)
[2016-08-17] MEDS: ACETYLCYSTEINE 20% INHAL SOLN ***DISPENSED BY RESP. INH SCH ×2 (07:19→19:45)
[2016-08-17] MEDS: DORNASE ALFA (2500U) 2.5MG/2.5ML INH SCH ×2 (07:19→19:45)
[2016-08-17] MEDS: CYANOCOBALAMIN 500 MCG TAB (VIT B-12) PO SCH (07:41)
[2016-08-17] MEDS: FERROUS SULFATE 325 MG TAB PO SCH ×2 (07:41→16:00)
[2016-08-17] MEDS: SUCRALFATE 1 GM/10 ML UDC PO SCH ×4 (07:41→20:17)
[2016-08-17] MEDS: GUAIFENESIN 600 MG TABCR PO SCH ×2 (07:41→20:19)
[2016-08-17] MEDS: BUDESONIDE/FORMOTEROL FUMARATE 160/4.5 60 PUFFS/INHALER INH SCH ×2 (07:42→20:21)
[2016-08-17] MEDS: PAROXETINE 20 MG TAB PO SCH ×2 (07:42→20:19)
[2016-08-17] MEDS: CARVEDILOL 25 MG TAB PO SCH ×2 (07:42→20:19)
[2016-08-17] MEDS: PANTOprazole SOD 40 MG TAB PO SCH (07:42)
[2016-08-17] MEDS: GABAPENTIN 300 MG CAP PO SCH (07:43)
[2016-08-17] MEDS: INSULIN ASPART 100 UNITS/ML 3 ML PEN SC SCH ×4 (08:30→22:07)
[2016-08-17 09:28] LABS: BUN/CREATININE RATIO 49.3 (10-20); CREATININE 0.45 mg/dl (0.60-1.40); MAGNESIUM 1.9 mg/dl (1.8-2.4); POTASSIUM 4.2 mmol/L (3.5-5.1)
[2016-08-17] MEDS ORDERED: FUROSEMIDE 40 MG/4 ML VIAL IV STA (13:16)
[2016-08-17] MEDS ORDERED: FUROSEMIDE INJ 40 MG in SYRINGE 0 ML IV SCH (13:30)
[2016-08-17] MEDS: WARFARIN SOD 2 MG TAB PO SCH (16:01)
--- NOTE | 2016-08-17 17:28 | Family Medicine Progress Note ---
Progress Note Date of Service Aug 17, 2016. Subjective Pt evaluation today including: conversation w/ patient, physical exam, chart review, lab review The patient was seen and examined at bedside. No acute overnight events. Pt received 60mg IV furosimide yesterday. Neg 2L over the past 24 hours. Patient is resting comfortably in bed. Denies having any pain. Eating and urinating well with a krueger cathetor. Plan of care was described to the patient and all questions were answered. Constitutional: No chills, No fever, No sweats, No weight loss Respiratory: No cough, No shortness of breath, No sputum, No wheezing Abdomen: No diarrhea, No nausea, No pain, No vomiting Objective Physical Exam General Appearance: WD/WN, no apparent distress, + obese Eyes: normal inspection ENT: normal ENT inspection Respiratory/Chest: chest non-tender, lungs clear, normal breath sounds, no respiratory distress Cardiovascular: no edema, no gallop, no JVD, no murmur, + irregularly irregular Abdomen: normal bowel sounds, non tender, soft Extremities: no pedal edema, + pertinent finding (decreased fine motor ability) Neurologic/Psychiatric: alert, normal mood/affect, oriented x 3 Assessment and Plan 71M with a past medical history of COPD, recurrent pleural effusions, Diastolic CHF, recent admission of PNA and recent hospitalization for GI Bleed p/w SOB, admitted for Acute Hypoxic Resp. Failure, Toxic Encephalopathy, Anemia. Hospital course has been complicated by constant signs of fluid overload and diuresing. Acute on Chronic hypoxic respiratory failure - improved from arrival, 95 % on 2L NC - s/p 7 days Levaquin, s/p 2 days of Zosyn. - Continue DuoNeb INH Q4 Scheduled, Continue Symbicort BID and Pulmozyme BID. -Speech Therapy - 1.Moist dental soft with NECTAR-THICK liquids. Pt refuses use of thickener, but this is recommended. 2.Aspiration Precautions: fully upright, NO STRAWS, stringent oral hygiene 3.Compensatory Strategies: SMALL, SINGLE SIPS; use effortful swallow technique 4.Would benefit from [employer] intervention at [facility] on discharge to work on consistency of implementation of aspiration precautions and compensatory strategies. COPD -stable - likely chronic CO2 retainer due to COPD leading to chronic Respiratory Acidosis with metabolic compensation Acute on Chronic Diastolic CHF, Pleural effusions - CHF protocols in place: fluid restriction limit to 1.5L, monitor I/O and weight change, assess hydration status. - Patient diuresing well. Baseline Weight 195 lbs per patient. - Diuresing well , -2 L over last 24 hrs, given 40 mg Lasix today, Reassess in the evening and consider further diuresis Left pleural effusion - s/p tube thoracostomy 08/03/16. -Chest tube removed on 04/15 Anemia - Hemoglobin near baseline - One positive FOBT, previous 3 were negative. - B12, Folate wnl - Iron studies show Low Iron, NL Ferritin. Ferritin likely elevated from baseline as an acute phase reactant - Continue Iron supplementation ( Ferrous sulfate 325 mg BID) Productive cough, course breath sounds - Continue Guaifenesin 200 mg BID Afib with RVR - rate controlled - Continue Coreg 25mg BID, -INR 3.6 -->3.3-->2.8-->2.6 - Restart Coumadin at 2mg -F/U repeat INR Neuropathic pain 2/ DM2 - unchanged - c/w Gabapentin 300mg BID. - Pt has Roxicodone 5mg Q4 PRN for pain since 08/11/16. Chronic Right heel ulceration and Left Forearm Skin Tear - Continue Woundcare DM2 - managed per glycemic consult - Continue Lantus 17 unit - Aspart sliding scale with AC/HS BSG Recent H/O severe GI bleed requiring blood transfusion - Continue Carafate 1g and Protonix 40mg daily Depression - c/w Paroxetine 20mg to BID, - Pt has also been getting Atrivan 0.5mg Q6PRN for anxiety. Hypothyroid - c/w Levothyroxine 25mcg daily. BPH - Continue tamsulosin 0.4mg daily. DVT Prophylaxis - Ok to resume Coumadin, INR was 1.6. Dispo - Med/Surg from Tele, DNR, going to SNF. Resident Physician Supervision Note: I was present with PGY1 Dr. Kaleb Durham during the history and exam. I discussed the case with the resident and agree with the findings and plan as documented in the note. Any exceptions or clarifications are listed here: none. Pt w/o complaints today. No orthopnea. No dyspnea at rest. A. fib on monitor - rates <110. eating well. vitals - stable, o2 sats stable gen - unchanged overall appearance; looks good neck - JVD present, again improved heart - irregular, s1, s2 lungs - no rales or wheeze today; good airation abd - soft, NT ext - no edema BUN and Cr stable Hb stable in mid 8's A/P: 1. acute/chronic resp failure - acute component multifactorial including COPD exac, recent pneumonia, CHF. acute component resolved. 2. acute/chronic diastolic CHF - suspect we are just about euvolemic. 1 more dose of IV lasix today. then repeat BMP, weight, etc in am. transition to po lasix tomorrow 3. COPD with recent exacerbation - latter resolved 4. anemia - s/p 1 unit PRBCs 2 days ago with stable H/H since 5. a. fib - rates acceptable; coumadin resumed 08/16 INR goal 2-3 but in light of GI bleed history would try to keep INR closer to 2 dispo - SNF, [facility] ok to step down to med/surg Documented By: Jaylen Benavides MD Resident Involvement: Resident Care Provided Care Provided: Adult Hospital Medicine
[2016-08-17] MEDS: OXYCODONE HCL IR 5 MG TAB (IMMEDIATE RELEASE) PO PRN (19:17)
[2016-08-17] MEDS: TAMSULOSIN HCL 0.4 MG CAP PO SCH (20:19)
[2016-08-17] MEDS: ACETAMINOPHEN 325 MG TAB PO PRN (20:20)
[2016-08-17] MEDS: LORAZEPAM 0.5 MG TAB PO PRN (20:20)
[2016-08-17] MEDS: GABAPENTIN 400 MG CAP PO SCH (20:28)
[2016-08-17] MEDS: INSULIN GLARGINE SOLOSTAR 100 UNITS/ML 3 ML PEN SC SCH (22:06)
[2016-08-18] VITALS (10 sets, daily range): BP systolic 106–123; BP diastolic 65–80; PULSE 77–120; TEMP 36.4–36.6; O2SAT 91–97
[2016-08-18] MEDS: OXYCODONE HCL IR 5 MG TAB (IMMEDIATE RELEASE) PO PRN ×3 (04:43→21:31)
[2016-08-18] MEDS: LORAZEPAM 0.5 MG TAB PO PRN ×2 (04:43→19:49)
[2016-08-18] MEDS: LEVOTHYROXINE 25 MCG TAB PO SCH (05:21)
[2016-08-18] MEDS: SUCRALFATE 1 GM/10 ML UDC PO SCH ×4 (05:21→19:51)
[2016-08-18 06:19] LABS: HEMATOCRIT 28.7 % (42-52); MEAN CELL VOLUME 85.4 fL (80-100); MEAN CORPUSCULAR HEMOGLOBIN 26.2 pg (25-34); MEAN CORPUSCULAR HGB CONC 30.7 g/dl (32-36); MEAN PLATELET VOLUME 9.5 fL (7.4-10.4); PLATELET COUNT 221 K/uL (130-400); RED BLOOD COUNT 3.36 M/uL (4.7-6.1); WHITE BLOOD COUNT 6.29 K/uL (4.8-10.8)
[2016-08-18] MEDS: INSULIN ASPART 100 UNITS/ML 3 ML PEN SC SCH ×4 (06:30→20:48)
[2016-08-18 06:36] LABS: INR 1.5 (0.9-1.1); PROTHROMBIN TIME (PATIENT) 16.7 SECONDS (9.0-12.0)
[2016-08-18 06:52] LABS: BUN/CREATININE RATIO 45.3 (10-20); CALCIUM 8.2 mg/dl (8.5-10.1); CREATININE 0.51 mg/dl (0.60-1.40); POTASSIUM 4.6 mmol/L (3.5-5.1)
[2016-08-18] MEDS: ALBUT/IPRATROP 3MG/0.5MG NEB 3 ML VIAL INH SCH ×4 (07:00→19:07)
[2016-08-18] MEDS: ACETYLCYSTEINE 20% INHAL SOLN ***DISPENSED BY RESP. INH SCH ×2 (07:00→19:07)
[2016-08-18] MEDS: FERROUS SULFATE 325 MG TAB PO SCH ×2 (08:00→19:17)
[2016-08-18] MEDS: DORNASE ALFA (2500U) 2.5MG/2.5ML INH SCH ×2 (08:02→19:08)
[2016-08-18] MEDS: CYANOCOBALAMIN 500 MCG TAB (VIT B-12) PO SCH (09:00)
[2016-08-18] MEDS: PANTOprazole SOD 40 MG TAB PO SCH (09:00)
[2016-08-18] MEDS: CARVEDILOL 25 MG TAB PO SCH ×2 (09:00→19:51)
[2016-08-18] MEDS: GUAIFENESIN 600 MG TABCR PO SCH ×2 (09:00→19:50)
[2016-08-18] MEDS: BUDESONIDE/FORMOTEROL FUMARATE 160/4.5 60 PUFFS/INHALER INH SCH ×2 (09:00→21:27)
[2016-08-18] MEDS: PAROXETINE 20 MG TAB PO SCH ×2 (09:00→19:50)
[2016-08-18] MEDS: GABAPENTIN 400 MG CAP PO SCH ×2 (10:09→19:50)
--- NOTE | 2016-08-18 13:16 | Family Medicine Progress Note ---
Progress Note Date of Service Aug 18, 2016. Subjective Pt evaluation today including: conversation w/ patient, physical exam, chart review, lab review The patient was seen and examined at bedside. No acute overnight events. Patient is resting comfortably in bed. Denies having any pain. Pt still has a krueger, he refused it be taken out because he is worried he will pee all over himself. Patient is weak, according to nurse he is unable to bear his own weight. Plan of care was described to the patient and all questions were answered. Constitutional: No chills, No fever, No sweats Respiratory: No cough, No shortness of breath, No sputum, No wheezing Cardiovascular: No chest pain Abdomen: No diarrhea, No nausea, No pain, No vomiting Psychiatric: No depression symptoms Objective Physical Exam General Appearance: WD/WN, + obese Respiratory/Chest: chest non-tender, lungs clear, no respiratory distress, no accessory muscle use, + pertinent finding (decreased breath sounds posteriorly) Cardiovascular: no edema, no gallop, no JVD, no murmur, + irregularly irregular Abdomen: normal bowel sounds, non tender, soft, no organomegaly Extremities: + pertinent finding (Patient is weak and has difficulty sitting up for lung auscultation. ) Neurologic/Psychiatric: alert, normal mood/affect, oriented x 3, + pertinent finding (neuropathy is unchanged from previous exam.) Assessment and Plan 71M with a past medical history of COPD, recurrent pleural effusions, Diastolic CHF, recent admission of PNA and recent hospitalization for GI Bleed p/w SOB, admitted for Acute Hypoxic Resp. Failure, Toxic Encephalopathy, Anemia. Hospital course has been complicated by constant signs of fluid overload and diuresing. Acute on Chronic hypoxic respiratory failure - improved from arrival, 96 % on 3L NC - s/p 7 days Levaquin, s/p 2 days of Zosyn. - Continue DuoNeb INH Q4 Scheduled, Continue Symbicort BID and Pulmozyme BID. - Speech Therapy - 1.Moist dental soft with NECTAR-THICK liquids. Pt refuses thickener. COPD -stable - likely chronic CO2 retainer due to COPD leading to chronic Respiratory Acidosis with metabolic compensation Deconditioning Pt is weak, unable to maintain his own weight. Continue with PT and OT Follow up CPK tomorrow. Acute on Chronic Diastolic CHF, Pleural effusions CHF protocols in place: fluid restriction limit to 1.5L, monitor I/O and weight change, assess hydration status. Patient diuresing well. Baseline Weight 195 lbs per patient. Start PO Lasix 40mg BID today. Left pleural effusion s/p tube thoracostomy 08/03/16. Chest tube removed on 08/09/16 Anemia - Hemoglobin near baseline - One positive FOBT, previous 3 were negative. - B12, Folate wnl - Iron studies show Low Iron, NL Ferritin. Ferritin likely elevated from baseline as an acute phase reactant - Continue Iron supplementation ( Ferrous sulfate 325 mg BID) Productive cough, course breath sounds - Continue Guaifenesin 200 mg BID Afib with RVR - rate controlled - Continue Coreg 25mg BID - Restart Coumadin at 2mg, INR is subtherapeutic. (1.5 today) -F/U repeat INR Neuropathic pain / DM2 - unchanged - c/w Gabapentin 300mg BID. - Pt has Roxicodone 5mg Q4 PRN for pain since 08/11/16. Chronic Right heel ulceration and Left Forearm Skin Tear - Continue Woundcare DM2 - managed per glycemic consult - c/w Lantus + Aspart sliding scale with AC/HS BSG Recent H/O severe GI bleed requiring blood transfusion - Continue Carafate 1g and Protonix 40mg daily Depression - c/w Paroxetine 20mg to BID, - Pt has also been getting Atrivan 0.5mg Q6PRN for anxiety. Hypothyroid - c/w Levothyroxine 25mcg daily. BPH - Continue tamsulosin 0.4mg daily. DVT Prophylaxis - Lovenox 40mg SQ daily, on Coumadin, INR is 1.5 Dispo - Med/Surg from Tele, DNR, going to SNF this week hopefully. Resident Physician Supervision Note: I was present with PGY1 Dr. Kaleb Durham during the history and exam. I discussed the case with the resident and agree with the findings and plan as documented in the note. Any exceptions or clarifications are listed here: none. No issues overnight. Pt with no orthopnea. Baseline cough remains. Denies dyspnea. Eating well. He cannot stand, is very weak, and requests krueger stay in. vitals - stable, o2 sats stable, HRs <100 gen - unchanged overall appearance; looks good neck - JVD resolved heart - irregular, s1, s2 lungs - slightly course BS b/l but overall clear with no rales or wheeze abd - soft, NT ext - no edema neuro - muscle wasting of intrinsic muscles of both hands; proximal muscle weakness noted of arms BUN and Cr stable Hb stable again in mid 8's A/P: 1. acute/chronic resp failure - acute component multifactorial including COPD exac, recent pneumonia, CHF. acute component resolved. 2. acute/chronic diastolic CHF - appears euvolemic today. 25+ liters negative this admission! transition to po lasix 40mg BID. 3. COPD with recent exacerbation - latter resolved; has been on mucomyst nebs for over 2 weeks consider d/c tomorrow if lungs continue to remain clear 4. anemia - s/p 1 unit PRBCs 2 days ago with stable H/H since 5. a. fib - rates acceptable; coumadin resumed 08/16 INR goal 2-3 but in light of GI bleed history would try to keep INR closer to 2 6. significant weakness, especially proximal muscles - check CPK, r/o critical illness myopathy check b12, vit D to be complete dispo - SNF[facility]; latter has a bed apply for insurance auth on 08/19/16 Documented By: Jaylen Benavides MD Resident Involvement: Resident Care Provided Care Provided: Adult Hospital Medicine
[2016-08-18] MEDS ORDERED: ENOXAPARIN 40 MG/0.4 ML SYR SQ ONE (13:45)
[2016-08-18] MEDS: WARFARIN SOD 2 MG TAB PO SCH (16:30)
[2016-08-18] MEDS: FUROSEMIDE 40 MG TAB PO SCH (17:43)
[2016-08-18] MEDS: DOCUSATE SODIUM 100 MG CAP PO PRN (17:43)
[2016-08-18] MEDS: TAMSULOSIN HCL 0.4 MG CAP PO SCH (19:51)
[2016-08-18] MEDS: INSULIN GLARGINE SOLOSTAR 100 UNITS/ML 3 ML PEN SC SCH (20:48)
[2016-08-19] VITALS (11 sets, daily range): BP systolic 101–112; BP diastolic 63–68; PULSE 77–111; TEMP 36.4–36.9; O2SAT 88–97
[2016-08-19 06:03] LABS: INR 1.7 (0.9-1.1); PROTHROMBIN TIME (PATIENT) 18.1 SECONDS (9.0-12.0)
[2016-08-19] MEDS: LEVOTHYROXINE 25 MCG TAB PO SCH (06:03)
[2016-08-19] MEDS: SUCRALFATE 1 GM/10 ML UDC PO SCH ×4 (06:03→21:14)
[2016-08-19] MEDS: OXYCODONE HCL IR 5 MG TAB (IMMEDIATE RELEASE) PO PRN ×2 (06:06→23:38)
[2016-08-19 06:22] LABS: CALCIUM 8.1 mg/dl (8.5-10.1); CREATININE 0.67 mg/dl (0.60-1.40); POTASSIUM 4.9 mmol/L (3.5-5.1)
[2016-08-19 06:33] LABS: THYROID STIMULATING HORMONE 2.8 uIu/ml (0.300-4.500)
[2016-08-19] MEDS: ALBUT/IPRATROP 3MG/0.5MG NEB 3 ML VIAL INH SCH ×4 (07:31→19:21)
[2016-08-19] MEDS: ACETYLCYSTEINE 20% INHAL SOLN ***DISPENSED BY RESP. INH SCH ×2 (07:31→19:21)
[2016-08-19] MEDS: DORNASE ALFA (2500U) 2.5MG/2.5ML INH SCH ×2 (07:32→19:21)
[2016-08-19] MEDS: PANTOprazole SOD 40 MG TAB PO SCH (08:21)
[2016-08-19] MEDS: GABAPENTIN 400 MG CAP PO SCH ×2 (08:21→21:15)
[2016-08-19] MEDS: CARVEDILOL 25 MG TAB PO SCH ×2 (08:21→21:00)
[2016-08-19] MEDS: FUROSEMIDE 40 MG TAB PO SCH ×2 (08:21→18:11)
[2016-08-19] MEDS: FERROUS SULFATE 325 MG TAB PO SCH ×2 (08:21→18:09)
[2016-08-19] MEDS: GUAIFENESIN 600 MG TABCR PO SCH ×2 (08:22→21:15)
[2016-08-19] MEDS: BUDESONIDE/FORMOTEROL FUMARATE 160/4.5 60 PUFFS/INHALER INH SCH ×2 (08:22→21:13)
[2016-08-19] MEDS: CYANOCOBALAMIN 500 MCG TAB (VIT B-12) PO SCH (08:22)
[2016-08-19] MEDS: ENOXAPARIN 40 MG/0.4 ML SYR SQ SCH (08:23)
[2016-08-19] MEDS: INSULIN ASPART 100 UNITS/ML 3 ML PEN SC SCH ×4 (08:31→21:00)
[2016-08-19] MEDS: PAROXETINE 20 MG TAB PO SCH ×2 (08:32→21:15)
--- NOTE | 2016-08-19 14:16 | Family Medicine Progress Note ---
Progress Note Date of Service Aug 19, 2016. Subjective Pt evaluation today including: conversation w/ patient, physical exam, chart review, lab review, review of studies Voiding: no voiding problems, no incontinence Patient is a 71 year old male that presents with respiratory failure 2/2 fluid overload. Patient reports he is feeling much better today and more alert that he has been during his hospitalization. Still slightly short of breath but improved over course of hospitalization. Constitutional: No chills, No fever Respiratory: + shortness of breath, + sputum, No cough Cardiovascular: No chest pain Abdomen: No nausea, No pain, No vomiting Medications Current Inpatient Medications Medications (Trade) Dose Ordered Sig/Sujatha Route Start Time Stop Time Status Last Admin Dose Admin Acetaminophen (Tylenol Tab) 650 mg Q4H PRN PO 07/31/16 01:15 08/30/16 01:14 08/17/16 20:20 650 MG Al Hydrox/Mg Hydrox/Simethicone (Maalox Max Susp) 15 ml Q4H PRN PO 07/31/16 01:15 08/30/16 01:14 Ondansetron HCl (Zofran Inj) 4 mg Q6H PRN IV 07/31/16 01:15 08/30/16 01:14 Nitroglycerin (Nitrostat Tab) 0.4 mg UD PRN SL 07/31/16 01:15 08/30/16 01:14 08/13/16 23:32 0.4 MG Bisacodyl (Dulcolax Supp) 5 mg PRN PRN NM 07/31/16 01:30 08/30/16 01:29 07/31/16 20:24 5 MG Cyanocobalamin (Vitamin B-12 Tab) 500 mcg DAILY PO 07/31/16 09:00 08/30/16 08:59 08/19/16 08:22 500 MCG Levothyroxine Sodium (Synthroid Tab) 25 mcg DAILYBB PO 07/31/16 06:00 08/30/16 05:59 08/19/16 06:03 25 MCG Magnesium Hydroxide (Milk Of Magnesia Susp) 30 ml HS PRN PO 07/31/16 01:30 08/30/16 01:29 08/13/16 18:09 30 ML Sodium Biphosphate/ Sodium Phosphate (Fleet Enema) 1 ml DAILY PRN NM 07/31/16 01:30 08/30/16 01:29 Sucralfate (Carafate Susp) 1 gm ACHS PO 07/31/16 07:00 08/30/16 06:59 08/19/16 12:23 1 GM Tamsulosin HCl (Flomax Cap) 0.4 mg HS PO 07/31/16 21:00 08/30/16 20:59 08/18/16 19:51 0.4 MG Miconazole Nitrate (Desenex Powder) 1 appln PRN PRN EXT 07/31/16 11:45 08/30/16 11:44 07/31/16 22:00 1 APPLN Pantoprazole Sodium (Protonix Tab) 40 mg QAM PO 08/01/16 09:00 08/31/16 08:59 08/19/16 08:21 40 MG Lorazepam (Ativan Tab) 0.5 mg Q6 PRN PO 08/01/16 12:15 08/31/16 12:14 08/18/16 19:49 0.5 MG Acetylcysteine (Mucomyst 20% Inh Soln) 3 ml BIDR INH 08/01/16 20:00 08/31/16 19:59 08/19/16 07:31 3 ML Dornase Alan (Pulmozyme Inhalation Soln 2.5ml Amp) 2.5 ml BIDR INH 08/02/16 20:00 09/01/16 19:59 08/19/16 07:32 2.5 ML Glucose (Glucose 40% Gel) UD PRN PO 08/02/16 22:15 09/01/16 22:14 Glucose (Glucose Chew Tab) 1 tabs UD PRN PO 08/02/16 22:15 09/01/16 22:14 Dextrose (Dextrose 50% 50ML Syringe) 50 ml UD PRN IV 08/02/16 22:15 09/01/16 22:14 Glucagon (Glucagon Inj) 1 mg UD PRN SQ 08/02/16 22:15 09/01/16 22:14 Carvedilol (Coreg Tab) 25 mg BID PO 08/03/16 09:00 09/02/16 08:59 08/19/16 08:21 25 MG Spironolactone (Aldactone Tab) 25 mg QAM PO 08/03/16 09:00 09/02/16 08:59 Future Hold 08/14/16 08:26 25 MG Docusate Sodium (coLACE CAP) 100 mg BID PRN PO 08/03/16 08:30 09/02/16 08:29 08/18/16 17:43 100 MG Insulin Aspart (novoLOG ASPART) SLIDING SCALE G... ACHS SC 08/03/16 16:00 09/02/16 15:59 08/19/16 12:28 1 UNITS Albuterol/ Ipratropium (Duoneb) 3 ml Q4RWA INH 08/06/16 16:00 09/05/16 15:59 08/19/16 11:13 3 ML Budesonide/ Formoterol Fumarate (Symbicort 160/ 4.5 Inh) 2 puffs BID INH 08/06/16 21:00 09/05/16 20:59 08/19/16 08:22 2 PUFFS Albuterol/ Ipratropium (Duoneb) 3 ml Q2R PRN INH 08/06/16 13:45 09/05/16 13:44 08/13/16 00:35 3 ML Warfarin Sodium (Coumadin Tab) 2 mg DAILY@1600 PO 08/09/16 16:00 09/08/16 15:59 Future hold 08/18/16 16:30 2 MG Paroxetine HCl (pAXil TAB) 20 mg BID PO 08/11/16 21:00 09/10/16 20:59 08/19/16 08:32 20 MG Oxycodone HCl (Roxicodone Immediate Rel Tab) 5 mg Q4H PRN PO 08/11/16 10:15 08/25/16 10:14 08/19/16 06:06 5 MG Insulin Glargine (Lantus Solostar Pen) 17 unit HS SC 08/11/16 21:00 09/10/16 20:59 08/18/16 20:48 17 UNIT Guaifenesin (Mucinex Contr Rel Tab) 1,200 mg Q12 PO 08/12/16 21:00 09/11/16 20:59 08/19/16 08:22 1,200 MG Ferrous Sulfate (Feosol Tab) 325 mg BIDM PO 08/13/16 16:45 09/12/16 16:44 08/19/16 08:21 325 MG Gabapentin (Neurontin Cap) 400 mg BID PO 08/17/16 21:00 09/16/16 20:59 08/19/16 08:21 400 MG Enoxaparin Sodium (Lovenox Inj) 40 mg QAM SQ 08/19/16 09:00 09/18/16 08:59 08/19/16 08:23 40 MG Furosemide (Lasix Tab) 40 mg BID17 PO 08/18/16 17:00 09/17/16 16:59 08/19/16 08:21 40 MG Objective Vital Signs Date Time Temp Pulse Resp B/P Pulse Ox O2 Delivery O2 Flow Rate FiO2 08/19/16 11:13 83 18 93 Nasal Cannula 2.0 08/19/16 08:00 96 Nasal Cannula 3.0 35 08/19/16 07:47 36.8 82 20 110/63 96 Nasal Cannula 4.0 08/19/16 07:32 77 18 94 Nasal Cannula 2.0 08/19/16 02:00 Nasal Cannula 3.0 08/19/16 00:23 36.4 86 18 105/68 97 Nasal Cannula 3.0 08/18/16 21:45 Nasal Cannula 2.0 08/18/16 19:39 36.5 120 22 106/65 94 Nasal Cannula 3.0 08/18/16 19:08 77 18 96 Nasal Cannula 2.0 08/18/16 16:15 36.6 98 20 123/80 95 Nasal Cannula 2.0 08/18/16 16:00 97 Nasal Cannula 2.0 08/18/16 14:20 82 16 97 Nasal Cannula 2.0 Physical Exam General Appearance: WD/WN, + mild distress Respiratory/Chest: chest non-tender, lungs clear, no respiratory distress, + stridor Cardiovascular: no edema, no gallop, no JVD, no murmur, + irregularly irregular Abdomen: normal bowel sounds, non tender, soft Extremities: no calf tenderness Neurologic/Psychiatric: alert, normal mood/affect, oriented x 3 Laboratory Results Results Past 24 Hours Test 08/18/16 19:41 08/19/16 05:39 08/19/16 11:22 Range/Units Bedside Glucose 178 126 70-99 mg/dl Prothrombin Time 18.1 9.0-12.0 SECONDS Prothromb Time International Ratio 1.7 0.9-1.1 Sodium Level 139 136-145 mmol/L Potassium Level 4.9 3.5-5.1 mmol/L Chloride Level 99 98-107 mmol/L Carbon Dioxide Level 35 21-32 mmol/L Anion Gap 5.0 3-11 mmol/L Blood Urea Nitrogen 27 7-18 mg/dl Creatinine 0.67 0.60-1.40 mg/dl Est Creatinine Clear Calc Drug Dose 109.4 ml/min Estimated GFR () 111.3 Estimated GFR (Non- 96.0 BUN/Creatinine Ratio 40.0 10-20 Random Glucose 214 70-99 mg/dl Calcium Level 8.1 8.5-10.1 mg/dl Total Creatine Kinase 32 39-308 U/L 25-Hydroxy Vitamin D Total 18.5 30-100 ng/ml Thyroid Stimulating Hormone (TSH) 2.800 0.300-4.500 uIu/ml Assessment and Plan Patient is a 71 year old male with a PMH of COPD, recurrent pleural effusions, Diastolic CHF, and recent admission for pneumonia that presents with shortness of breath 1) Acute on chronic respiratory failure - Multifactorial - COPD, recurrent PNA, CHF - Patient treated with 7 days Levaquin followed by 2 days of Zosyn 2) Acute Diastolic CHF - Lasix 40mg PO BID - Diuresed 25L since admission - Fluid intake restricted to 1.5L - Monitor I/O 3) COPD exacerbation - Symbicort 2 puff BID - Duoneb 3ml q4h - Dornase 2.5ml BID - Mucomyst 3ml BID 4) Anemia - H/H Stable, received 1 unit PRBC on 08/16 - Iron studies showed low iron but normal ferritin, most likely normal d/t acute phase reactants - Ferrous Sulfate 325mg BID 5) Atrial Fibrillation - rate controlled with Coreg 25mg BID - Coumadin resumed on 08/16 - INR 1.7 today, goal of 2 due to history of GI bleed - Lovenox 40mg qAM 6) Depression - Paxil 20mg BID 7) Anxiety - Ativan 0.5mg PRN 8) Speech Therapy - Recommended nectar thickened liquid diet - Patient as refused eating thickened foods 9) PT/OT - Evaluation performed today to assess for discharge 10) Left sided pleural effusion - s/p tube thoracostomy 08/03/16 - Chest tube removed 08/09/16 11) Diabetes Mellitus - Lantus 17 units HS - Insulin aspart sliding scale insulin - Gabapentin 300mg BID for neuropathic pain - Roxicodone 5mg Q4 PRN for pain 12) GI Prophylaxis - Protonix 40mg daily - Carafate 1g 13) Disposition - DNR - Going to SNF this week, family did not like [facility] so looking through other option
[2016-08-19] MEDS: WARFARIN SOD 2 MG TAB PO SCH (18:09)
[2016-08-19] MEDS: LORAZEPAM 0.5 MG TAB PO PRN (21:12)
[2016-08-19] MEDS: TAMSULOSIN HCL 0.4 MG CAP PO SCH (21:14)
[2016-08-19] MEDS: INSULIN GLARGINE SOLOSTAR 100 UNITS/ML 3 ML PEN SC SCH (21:18)
[2016-08-19] MEDS: ALBUT/IPRATROP 3MG/0.5MG NEB 3 ML VIAL INH PRN (21:26)
[2016-08-20] VITALS (8 sets, daily range): BP systolic 111–112; BP diastolic 55–68; PULSE 84–104; TEMP 36.4–36.5; O2SAT 90–95; Ht 182.9 cm; Wt 92.1 kg
[2016-08-20 06:37] LABS: MEAN CELL VOLUME 86.5 fL (80-100); MEAN CORPUSCULAR HEMOGLOBIN 26.2 pg (25-34); MEAN CORPUSCULAR HGB CONC 30.3 g/dl (32-36); MEAN PLATELET VOLUME 9.7 fL (7.4-10.4); PLATELET COUNT 250 K/uL (130-400); RED BLOOD COUNT 3.47 M/uL (4.7-6.1); WHITE BLOOD COUNT 7.75 K/uL (4.8-10.8)
[2016-08-20] MEDS: LEVOTHYROXINE 25 MCG TAB PO SCH (06:47)
[2016-08-20] MEDS: SUCRALFATE 1 GM/10 ML UDC PO SCH ×2 (06:47→11:00)
[2016-08-20 06:49] LABS: INR 1.8 (0.9-1.1); PROTHROMBIN TIME (PATIENT) 20.1 SECONDS (9.0-12.0)
[2016-08-20 07:09] LABS: BUN/CREATININE RATIO 50.3 (10-20); CALCIUM 8.4 mg/dl (8.5-10.1); CREATININE 0.65 mg/dl (0.60-1.40); POTASSIUM 4.8 mmol/L (3.5-5.1)
[2016-08-20] MEDS: CYANOCOBALAMIN 500 MCG TAB (VIT B-12) PO SCH (08:13)
[2016-08-20] MEDS: FUROSEMIDE 40 MG TAB PO SCH (08:14)
[2016-08-20] MEDS: PANTOprazole SOD 40 MG TAB PO SCH (08:14)
[2016-08-20] MEDS: CARVEDILOL 25 MG TAB PO SCH (08:14)
[2016-08-20] MEDS: PAROXETINE 20 MG TAB PO SCH (08:15)
[2016-08-20] MEDS: GABAPENTIN 400 MG CAP PO SCH (08:15)
[2016-08-20] MEDS: GUAIFENESIN 600 MG TABCR PO SCH (08:15)
[2016-08-20] MEDS: FERROUS SULFATE 325 MG TAB PO SCH (08:16)
[2016-08-20] MEDS: ENOXAPARIN 40 MG/0.4 ML SYR SQ SCH (08:16)
[2016-08-20] MEDS: INSULIN ASPART 100 UNITS/ML 3 ML PEN SC SCH ×2 (08:23→11:00)
[2016-08-20] MEDS: ALBUT/IPRATROP 3MG/0.5MG NEB 3 ML VIAL INH SCH ×3 (08:25→13:35)
[2016-08-20] MEDS: ACETYLCYSTEINE 20% INHAL SOLN ***DISPENSED BY RESP. INH SCH (08:26)
[2016-08-20] MEDS: DORNASE ALFA (2500U) 2.5MG/2.5ML INH SCH (08:26)
[2016-08-20] MEDS: BUDESONIDE/FORMOTEROL FUMARATE 160/4.5 60 PUFFS/INHALER INH SCH (08:45)
[2016-08-20] MEDS ORDERED: LVQ750 PO (13:41)
--- NOTE | 2016-08-20 14:27 | Discharge Summary ---
Discharge Summary Date of Service Aug 20, 2016. Discharge Summary Admission Date: Jul 31, 2016 at 01:16 Discharge Date: Aug 09, 2016 Discharge Disposition: Home Principal Diagnosis: Acute on Chronic Respiratory Failure Problems/Secondary Diagnoses: Acute Diastolic Heart Failure Medication Reconciliation New Medications: Levofloxacin (Levofloxacin) 750 Mg Tab 750 MG PO DAILY@11 for 4 Days, #4 TAB Take every morning at 10am. Warfarin Sod (Coumadin) 2 Mg Tab 2 MG PO DAILY@1600 for 30 Days, #30 TAB Changed Medications: Furosemide (Lasix) 20 Mg Tab 60 MG PO DAILY for 15 Days, #45 TAB (Changed from: 20 MG; TID) Take three 20mg tablets, once daily, for a total daily dose of 60mg. Continued Medications: Acetaminophen Tab (Tylenol) 325 Mg Tab 650 MG PO Q4H PRN for Pain or Fever, TAB Albuterol Sulf (Albuterol Sulfate) 2.5 Mg/3 Ml Nebu 3 ML INH Q4H PRN for SOB/Wheezing Bisacodyl (Dulcolax) 10 Mg Sup 5 MG RE UD, SUP FOR NO BM 4 DAYS Budesonide (Pulmicort Respules 0.5MG/2ML) 0.5 Mg/2 Ml Nebu 2 ML INH BID, EA Carvedilol (Coreg) 12.5 Mg Tab 12.5 MG PO BID, TAB Cyanocobalamin (Vitamin B-12) 500 Mcg Tab 500 MCG PO DAILY, TAB TAKE 2 ( 500MCG) TABLETS BY MOUTH EVERY DAY Insulin Glargine (Lantus Solostar) 100 Unit/Ml Inj 24 SC HS, PEN Insulin Human Regular (Novolin R) 1 Ea Ea SQ ACHS for SLIDING SCALE 151-200=0 UNITS, 201-250=2 UNITS, 251-300=4 UNITS, 301-350=8 UNITS, 351-400=10 UNITS, <60 OR >400 CALL Levothyroxine Sodium (Levothyroxine Sodium) 25 Mcg Tab 1 TAB PO DAILY for 30 Days, #30 TAB 5 Refills Magnesium Hydroxide (Milk Of Magnesia) 30 Ml Susp 30 ML PO HS PRN for Constipation, ML Omeprazole (Prilosec) 20 Mg Capcr 20 MG PO DAILY, CAP Paroxetine (Paxil) 20 Mg Tab 20 MG PO HS, TAB Prednisone Tab (Prednisone) 10 Mg Tab 10 MG PO DAILY, TAB Sodium Phosphate/Biphosphate (Fleet Enema) [place] 1 EA RI DAILY PRN for Constipation, BTL Sucralfate (Carafate) 1 Gm/10 Ml Darya 10 ML PO ACHS for 30 Days, ML Tamsulosin Hcl (Flomax) 0.4 Mg Cap 1 CAP PO HS for 30 Days, CAP 5 Refills Discontinued Medications: Amoxicillin & Pot Clavulanate (Augmentin 875-125 mg) 1 Tab Tab 1 TAB PO BID, #14 TAB Warfarin Sod (Jantoven) 3 Mg Tab 3 MG PO DAILY, TAB Discharge Exam Review of Systems: Constitutional: No chills, No fever Respiratory: + shortness of breath, No cough, No sputum, No wheezing Cardiovascular: No chest pain Abdomen: No nausea, No pain, No vomiting Physical Exam: General Appearance: WD/WN, no apparent distress Respiratory/Chest: chest non-tender, lungs clear, normal breath sounds Cardiovascular: regular rate, rhythm, no edema, no gallop, no murmur Abdomen / GI: normal bowel sounds, non tender, soft Extremities: no calf tenderness Neurologic/Psychiatric: alert, normal mood/affect, normal reflexes, oriented x 3 Hospital Course Admitting HPI: This is a 70 yo m that is presenting to us with worsening generalize pain, SOBOE with a h/o COPD, recurrent transudative pleural effusions, diastolic CHF, poorly controlled DM. He states that he was recently at [facility] (jul 29 2016) and he was found to have PNA and a return of his recurrent left pleural effusion. He was admitted and placed on Zosyn and Levaquin and descalated to Augmentin. He was d/c on the . He was also d/c with 10 mg of prednisone. He states that he is "just getting frustrated because I don't feel I can breathe and my hands hurt so much from my neuropathy. I just feel so agitated and I need help." As per hospital records, thoracentesis results were as follows: Volume- 600 , WBC-52, RBC- 109, Nt -41, Lymph - 14, Grant- 20, Mesoth- 3, Macro- 22, Glu -107 , LDH- 53, Pro- 0.8. He mentions that this SOBOE has been significantly worsening over the past two months and he has needed multipl thoracentesis to drain the effusions. He also notes that he does have CHF which is treated with lasix and carvedilol. He states that [facility] however he prefers to not take his insulin at home. he has a left sided amputation. 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 Progress of Admission: 70 year old male presents with acute hypoxic respiratory failure secondary to recurrent bilateral pleural effusions, on background of COPD with 2L O2 at home , poorly controlled DM2, diastolic CHF, and hypothyroidism. Symptoms attributed to acute on chronic CHF. Concurrent management includes diuresis and chest tube drainage for pleural effusions. Patient refused Video Speech Swallow on 08/05/16. On 08/06/16 patient experienced an episode of crushing chest pain likely from demand ischemia 08/01 to hypoxia. Patient is otherwise improving clinically. Patient will be discharged on 750mg PO Levoquin to be taken daily at 10am. His lasix will be changed from 20 TID to 60 Daily due to compliance concerns. Also his Warfarin will be reduced to 2mg daily. While in the hospital multiple concurrent issues were managed simultaneously. DM2 - Monitored, managed with insulin and diet. Recent H/O severe GI bleed requiring blood transfusion - Medically managed. Depression - Managed medically BPH - Managed medically DVT Prophylaxis - Managed medically Code status - Changed to DNR/DNI. Status on Discharge: 1) Acute on chronic respiratory failure - Multifactorial - COPD, recurrent PNA, CHF - Patient treated with 7 days Levaquin followed by 2 days of Zosyn 2) Acute Diastolic CHF - Lasix 40mg PO BID - Diuresed 25L since admission - Fluid intake restricted to 1.5L - Monitor I/O 3) COPD exacerbation - Symbicort 2 puff BID - Duoneb 3ml q4h - Dornase 2.5ml BID - Mucomyst 3ml BID 4) Anemia - H/H Stable, received 1 unit PRBC on 08/16 - Iron studies showed low iron but normal ferritin, most likely normal d/t acute phase reactants - Ferrous Sulfate 325mg BID 5) Atrial Fibrillation - rate controlled with Coreg 25mg BID - Coumadin resumed on 08/16 - INR 1.7 today, goal of 2 due to history of GI bleed - Lovenox 40mg qAM 6) Depression - Paxil 20mg BID 7) Anxiety - Ativan 0.5mg PRN 8) Speech Therapy - Recommended nectar thickened liquid diet - Patient as refused eating thickened foods 9) PT/OT - Evaluation performed today to assess for discharge 10) Left sided pleural effusion - s/p tube thoracostomy 08/03/16 - Chest tube removed 08/09/16 11) Diabetes Mellitus - Lantus 17 units HS - Insulin aspart sliding scale insulin - Gabapentin 300mg BID for neuropathic pain - Roxicodone 5mg Q4 PRN for pain 12) GI Prophylaxis - Protonix 40mg daily - Carafate 1g 13) Disposition - DNR - Going to SNF this week, family did not like [facility] so looking through other option Total Time Spent: Greater than 30 minutes This includes examination of the patient, discharge planning, medication reconciliation, and communication with other providers. Discharge Instructions Please refer to the electronic Patient Visit Report (Discharge Instructions) for additional information.
[2016-09-25] MEDS ORDERED: FRRS300 PO (09:45)
[2016-09-25] MEDS ORDERED: IPRASOL4 INH (09:45)
[2016-09-25] MEDS ORDERED: INSDGIPEN SC (09:45)
[2016-09-25] MEDS ORDERED: PRED-301 PO (09:45)
[2016-09-25] MEDS ORDERED: NRN400 PO (09:45)
[2016-09-25] MEDS ORDERED: CMD125 PO (09:45)
[2016-09-25] MEDS ORDERED: ATV5 PO (09:45)
[2016-09-25] MEDS ORDERED: FURO40TA3 PO (09:45)
== END 2016-08-20 16:45 | DRG 252 ==
LOC: ENRESERVTM → ENRESERVDT → EDBD 21:21 → C.EDC 21:23 → C.2T 07-31 01:16 → C.MSICU 08-02 21:16 → C.2T 08-04 13:27 → C.4E 08-13 23:32 → C.2T 08-14 20:03 → C.MS2W 08-17 13:18
PROVIDERS: ADMIT Internal Medicine; ATTEND Internal Medicine
PROC: 03HC3DZ Insertion of Intraluminal Device into Left Radial Artery, Percutaneous Approach (ICD-10-PCS; principal; 2016-08-02)
PROC: 0W9B30Z Drainage of Left Pleural Cavity with Drainage Device, Percutaneous Approach (ICD-10-PCS; 2016-08-03)
DX: I50.33 Acute on chronic diastolic (congestive) heart failure (principal); J96.22 Acute and chronic respiratory failure with hypercapnia; J96.21 Acute and chronic respiratory failure with hypoxia; J69.0 Pneumonitis due to inhalation of food and vomit; G92 Toxic encephalopathy; J44.1 Chronic obstructive pulmonary disease with (acute) exacerbation; E11.65 Type 2 diabetes mellitus with hyperglycemia; I48.0 Paroxysmal atrial fibrillation; F32.9 Major depressive disorder, single episode, unspecified; E03.9 Hypothyroidism, unspecified; Z99.81 Dependence on supplemental oxygen; Z66 Do not resuscitate; N40.0 Benign prostatic hyperplasia without lower urinary tract symptoms; L97.519 Non-pressure chronic ulcer of other part of right foot with unspecified severity; Z91.19 Patient's noncompliance with other medical treatment and regimen; Z86.73 Personal history of transient ischemic attack (TIA), and cerebral infarction without residual deficits; E11.40 Type 2 diabetes mellitus with diabetic neuropathy, unspecified; I73.9 Peripheral vascular disease, unspecified; Z89.422 Acquired absence of other left toe(s); Z79.01 Long term (current) use of anticoagulants; Z87.891 Personal history of nicotine dependence; D64.9 Anemia, unspecified

== ENCOUNTER 2016-09-09 15:54 | Inpatient (IN) | payer BC, OTHER ==
[~2016-09-09] VITALS: Ht 182.9 cm; Wt 88.4 kg
[~2016-09-09 15:54] MED LIST changes: +ACET325T96 PO; +ALBINS INH; +BISA10SU3 RE; +CARV12.52 PO; -CARV6.252 PO; +CMD2 PO; +CRFL PO; -DIGO30TA PO; -DIPHCRE TOP; -DULO60CA44 PO; -FERR-24 PO; -FRS/40 PO; +FURO-85 PO; -GLC/500 PO; -HYDR-4383 PO; -INSDGI SC; +INSDGIPEN SC; +INSP SQ; +LVQ750 PO; +MOML PO; -MORP15TA PO; -NRN300 PO; -NUTR-468; -PANT1TAB48 PO; +PARO1TAB27 PO; +PLMINSR5 INH; +PRED10TA PO; +PRLSR20 PO; -RIVA1TAB4 PO; -SILD100T PO; +SODIENE PR; -TRAZ50TA35 PO
[2016-09-09 17:00] VITALS: BP 156/99; PULSE 92; TEMP 36.7; O2SAT 95
[2016-09-09 17:20] VITALS: BMI 27.5
[2016-09-09 19:09] VITALS: BP 125/76; PULSE 94; TEMP 36.4; O2SAT 98
[2016-09-09] MEDS ORDERED: GLUCAGON FOR INJ 1 MG VIAL SQ PRN (19:30)
[2016-09-09] MEDS ORDERED: NITROGLYCERIN 0.4 MG SL PER TAB CHARGE SL PRN (19:30)
[2016-09-09] MEDS ORDERED: SOD PHOSPHATE/SOD BIPHOSPHATE ENEMA 132 ML BTL PR PRN (19:30)
[2016-09-09] MEDS ORDERED: GLUCOSE 10 TABS/TUBE PO PRN (19:30)
[2016-09-09] MEDS ORDERED: MAGNESIUM HYDROXIDE SUSP 30 ML UDC PO PRN (19:30)
[2016-09-09] MEDS ORDERED: DEXTROSE 50% 50 ML SYR IV PRN (19:30)
[2016-09-09] MEDS ORDERED: ONDANSETRON INJ 2 MG/ML 2 ML VIAL IV PRN (19:30)
[2016-09-09] MEDS ORDERED: GLUCOSE 40% GEL 15 GM TUBE PO PRN (19:30)
[2016-09-09] MEDS ORDERED: VANCOMYCIN CONSULT ACTIVE PRN (20:00)
[2016-09-09] MEDS: BUDESONIDE 0.5 MG/2 ML VIAL (PULMICORT) INH SCH (20:11)
[2016-09-09 20:12] VITALS: PULSE 103; O2SAT 98
[2016-09-09] MEDS ORDERED: PIPERACILL/TAZOBAC CONSULT ACTIVE PRN (20:15)
[2016-09-09] MEDS ORDERED: PIPERACILL/TAZOBAC IV 3.375 GM in DEXTROSE 5% 100ML 100 ML IV ONE (20:30)
[2016-09-09] MEDS ORDERED: VANCOMYCIN INJ 2,300 MG in SODIUM CHLORIDE 0.9% 500ML 500 ML IV ONE (20:30)
[2016-09-09] MEDS: PAROXETINE 20 MG TAB PO SCH (20:45)
[2016-09-09] MEDS: CARVEDILOL 12.5 MG TAB PO SCH (20:45)
[2016-09-09] MEDS: TAMSULOSIN HCL 0.4 MG CAP PO SCH (20:45)
--- NOTE | 2016-09-09 20:45 | DIAGNOSTIC IMAGING REPORT ---
CHEST ONE VIEW PORTABLE CLINICAL HISTORY: Check PICC placement COMPARISON STUDY: Chest radiograph August 14, 2016. FINDINGS: An anterior cervical spine fusion is incidentally noted. The tip of the left PICC projects over the distal left brachiocephalic vein or proximal SVC. There is no pneumothorax. A large left pleural effusion has increased in size. There is diminished left lung aeration. Hazy right lower lung opacity persists. There is pulmonary vascular congestion with possible pulmonary edema. IMPRESSION: 1. Tip of left PICC projects over the distal left brachiocephalic vein or proximal SVC. 2. Increase in size of a suspected large left pleural effusion with diminished left lung aeration. 3. Persistent hazy right lower lung opacity with a possible right pleural effusion. Electronically signed by: Moody Stewart M.D. 09/09/2016 8:43 PM Dictated Date/Time: 09/09/2016 8:41 PM
[2016-09-09] MEDS: SUCRALFATE 1 GM/10 ML UDC PO SCH (20:46)
[2016-09-09] MEDS: INSULIN GLARGINE SOLOSTAR 100 UNITS/ML 3 ML PEN SC SCH (21:24)
[2016-09-09] MEDS: INSULIN ASPART 100 UNITS/ML 3 ML PEN SC SCH (21:25)
--- NOTE | 2016-09-09 21:40 | History and Physical ---
History & Physical Date & Time of Service: Sep 09, 2016 at 21:40 Chief Complaint: Aspiration Pneumonia, Hypoxia Primary Care Physician: Elton Blair History of Present Illness Source: patient The patient is a 69-year-old male who was most recently admitted to [facility] from July 31 through for pneumonia. Since that time he has been living in a nursing facility, and one week ago had a PICC line placed and IV antibiotics started due to recurrence of aspiration. He admits that he is not compliant with his diet and he does not thicken liquids as he should. This episode today occurred when he had low blood sugar, and just pounded down a number of drinks without thickening them and had severe respiratory compromise, was brought into the emergency department at [facility]. Once stabilized there and he asked to be transferred to [facility]. Past Medical/Surgical History Medical Problems: (1) Diabetes Status: Chronic (2) Neuropathy Status: Chronic Family History No pertinent family history Social History Smoking Status: Former Smoker Smokeless Tobacco Use: No Alcohol Use: none Drug Use: none Marital Status: single Occupational Status: retired Multi-Drug Resistant Organisms History of MDRO: No Allergies Coded Allergies: No Known Allergies (Unverified , 04/30/16) Home Medications Scheduled Bisacodyl (Dulcolax), 5 MG RE UD Budesonide (Pulmicort Respules 0.5MG/2ML), 2 ML INH BID Carvedilol (Coreg), 12.5 MG PO BID Cyanocobalamin (Vitamin B-12), 500 MCG PO DAILY Furosemide (Lasix), 60 MG PO DAILY Insulin Glargine (Lantus Solostar), 24 SC HS Insulin Human Regular (Novolin R), SQ ACHS Levofloxacin (Levofloxacin), 750 MG PO DAILY@11 Levothyroxine Sodium (Levothyroxine Sodium), 1 TAB PO DAILY Omeprazole (Prilosec), 20 MG PO DAILY Paroxetine (Paxil), 20 MG PO HS Prednisone Tab (Prednisone), 10 MG PO DAILY Sucralfate (Carafate), 10 ML PO ACHS Tamsulosin Hcl (Flomax), 1 CAP PO HS Warfarin Sod (Coumadin), 2 MG PO DAILY@1600 Scheduled PRN Acetaminophen Tab (Tylenol), 650 MG PO Q4H PRN for Pain or Fever Albuterol Sulf (Albuterol Sulfate), 3 ML INH Q4H PRN for SOB/Wheezing Magnesium Hydroxide (Milk Of Magnesia), 30 ML PO HS PRN for Constipation Sodium Phosphate/Biphosphate (Fleet Enema), 1 EA DE DAILY PRN for Constipation Review of Systems The patient denies vision change, hearing change, sore throat, fevers, chills, sweats, vomiting, abdominal pain, pelvic pain, blood in urine or stool, dysuria , urinary frequency or urgency, headache, memory loss, rash, abnormal bruising or bleeding, imbalance, focal or generalized weakness, numbness or tingling in arms or legs, arthralgias or myalgias, back or neck pain, night sweats, or allergy symptoms. The review of systems is otherwise negative other than for that already noted above, and at least 10 systems have been reviewed. Physical Exam Vital Signs Date Time Temp Pulse Resp B/P Pulse Ox O2 Delivery O2 Flow Rate FiO2 09/09/16 20:12 103 16 98 Nasal Cannula 4.0 09/09/16 20:00 Nasal Cannula 4.0 09/09/16 19:09 36.4 94 18 125/76 98 Room Air 09/09/16 17:20 Nasal Cannula 4.0 09/09/16 17:00 95 Nasal Cannula 4.0 09/09/16 17:00 36.7 92 20 156/99 95 Nasal Cannula 4.0 The patient is awake, well-developed and adequately nourished, alert and oriented 3, normocephalic and atraumatic, lying in bed and in no acute distress. HEENT--PERRL, EOMI, mucous membranes and oropharynx dry. Neck--supple, no JVD or bruits, thyroid normal, trachea midline, no adenopathy. Heart--normal S1 and S2, no extra beats, no murmurs, rubs or gallops. Lungs--rhonchi wheezes bilaterally, no respiratory distress, no accessory muscle use. Abdomen--normal bowel sounds and soft, nontender and nondistended, no hernias or masses, no organomegaly. Extremities--no cyanosis, clubbing. There is bilaterally 1+ pitting Edema. There are good distal pulses b/l. Dermatologic--normal skin turgor, normal color, warm and dry, no abnormal lymph nodes, no rash. Neurologic--cranial nerves II through XII grossly intact, motor and sensory examination normal. Rheumatologic--normal range of motion, nontender, muscles and joints. Psychiatric--normal affect. Diagnostics Laboratory Results Results Past 24 Hours Test 09/09/16 20:47 Range/Units Bedside Glucose 374 70-99 mg/dl Microbiology Results 09/09/16 MRSA DNA Surveillance Screen - Final, Complete Specimen Negative for MRSA by DNA Probe Diagnostic Radiology Patient Name: MESHA LOPEZ Unit Number: [id number] Dictated: 09/09/162040 Transcribed: 09/09/162040 JA Printed Date/Time: [~ rep prt dt]/[~ rep prt tm] [~ rep ct labl] - [~ rep ct ivnm] [facility] [place] [address] Dictated: 09/09/162040 Transcribed: 09/09/162040 JA Printed Date/Time: [~ rep prt dt]/[~ rep prt tm] [~ rep ct labl] - [~ rep ct ivnm] [~ rep ct add3]] CHEST ONE VIEW PORTABLE CLINICAL HISTORY: Check PICC placement COMPARISON STUDY: Chest radiograph August 14, 2016. FINDINGS: An anterior cervical spine fusion is incidentally noted. The tip of the left PICC projects over the distal left brachiocephalic vein or proximal SVC. There is no pneumothorax. A large left pleural effusion has increased in size. There is diminished left lung aeration. Hazy right lower lung opacity persists. There is pulmonary vascular congestion with possible pulmonary edema. IMPRESSION: 1. Tip of left PICC projects over the distal left brachiocephalic vein or proximal SVC. 2. Increase in size of a suspected large left pleural effusion with diminished left lung aeration. 3. Persistent hazy right lower lung opacity with a possible right pleural effusion. Electronically signed by: Moody Stewart M.D. 09/09/2016 8:43 PM Dictated Date/Time: 09/09/2016 8:41 PM The status of this report is Signed. Draft = Not yet reviewed or approved by Radiologist. Signed = Reviewed and approved by Radiologist. <AttendingPhy>Maykel Jacobs M.D.</AttendingPhy> <FamilyPhy>ELTON BLAIR</ FamilyPhy> <PrimaryPhy>ELTON BLAIR</PrimaryPhy> <UnitNumber>[id number]</ UnitNumber> <VisitNumber>[id number]</VisitNumber> <PatientName>MESHA LOPEZ</ PatientName> <DateOfBirth>1945</DateOfBirth> <Location>[facility]</Location> < ServiceDate></ServiceDate> <MNE>ESINDI</MNE> <OrderingPhy>Maykel Jacobs M.D.</OrderingPhy> <OrderingPhyMNE>f rep ord dr riggins</OrderingPhyMNE> < DictatingPhyMNE>f rep dict dr riggins</DictatingPhyMNE> <CCListMNE>f rep ct vaishnavi</ CCListMNE> <AdmittingPhyMNE>f pt admit dr riggins</AdmittingPhyMNE> <AttendingPhyMNE >f pt attend dr riggins</AttendingPhyMNE> <ConsultingPhyMNE>f pt consult dr riggins</ConsultingPhyMNE> <FamilyPhyMNE>f pt fam dr riggins</FamilyPhyMNE> <OtherPhyMNE>f pt other dr riggins</OtherPhyMNE> < PrimaryPhyMNE>f pt prim care dr riggins</PrimaryPhyMNE> <ReferringPhyMNE>f pt referring dr riggins</ReferringPhyMNE> Impression Assessment and Plan Recurrent aspiration pneumonia--start vancomycin IV per renal dosing, Zosyn 3.375 mg IV every 8 hours, continue Pulmicort breath pills 0.5 mg twice a day, Xopenex with that for nebulizers's every 6 hours while awake and every 2 hours when necessary. His liquids must be thickened to prevent aspiration, and the patient is aware that his failure to do so resulted in his rehospitalization at this time. Atrial fibrillation/hypertension/CHF--continue carvedilol 12.5 mg by mouth twice a day. We'll give a 1 time dose of Lasix 40 mg IV now. We will continue Furosemide 60 mg by mouth daily and warfarin. Follow serial BMP, magnesium, PT PTT. Diabetes mellitus--continue Lantus insulin 24 units subcutaneous at bedtime, place and Accu-Cheks before meals and at bedtime with NovoLog coverage. Hypothyroidism--continue levothyroxine sodium at 25 g by mouth daily. GERD--change omeprazole 20 mg by mouth daily to pantoprazole 40 mg by mouth daily. BPH--continue Flomax 0.4 mg by mouth in the evening. 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 Y/N: Yes
[2016-09-09] MEDS ORDERED: FUROSEMIDE 40 MG/4 ML VIAL IV SCH (21:52)
[2016-09-09 23:44] VITALS: BP 131/63; PULSE 95; TEMP 36.4; O2SAT 99
[2016-09-10] VITALS (11 sets, daily range): BP systolic 129–150; BP diastolic 66–84; PULSE 71–98; TEMP 36.3–36.9; O2SAT 95–100; BMI 27.1
[2016-09-10] MEDS: PIPERACILL/TAZOBAC IV 3.375 GM in DEXTROSE 5% 100ML 100 ML IV SCH ×3 (01:29→18:03)
[2016-09-10] MEDS: LEVOTHYROXINE 25 MCG TAB PO SCH (05:49)
[2016-09-10 06:28] LABS: BASO % 0.2 %; BASO ABS # 0.01 K/uL (0-0.2); EOS % 1.7 %; HEMATOCRIT 27.3 % (42-52); IG% 0.2 %; LYMPH % 11.4 %; LYMPH ABS # 0.76 K/uL (1.2-3.4); MEAN CELL VOLUME 82.7 fL (80-100); MEAN CORPUSCULAR HEMOGLOBIN 24.8 pg (25-34); MEAN PLATELET VOLUME 9.1 fL (7.4-10.4); MONO % 10.2 %; NEUT % 76.3 %; PLATELET COUNT 149 K/uL (130-400); WHITE BLOOD COUNT 6.64 K/uL (4.8-10.8)
[2016-09-10 06:43] LABS: INR 3.1 (0.9-1.1); PARTIAL THROMBOPLASTIN RATIO 1.9; PROTHROMBIN TIME (PATIENT) 34.7 SECONDS (9.0-12.0)
[2016-09-10 06:53] LABS: ALT/SGPT 17 U/L (12-78); BLOOD UREA NITROGEN 17 mg/dl (7-18); BUN/CREATININE RATIO 36.3 (10-20); CALCIUM 8.4 mg/dl (8.5-10.1); CARBON DIOXIDE 39 mmol/L (21-32); CHLORIDE 97 mmol/L (98-107); CREATININE 0.46 mg/dl (0.60-1.40); GLUCOSE 73 mg/dl (70-99); MAGNESIUM 1.9 mg/dl (1.8-2.4); POTASSIUM 3.9 mmol/L (3.5-5.1); SODIUM 140 mmol/L (136-145)
[2016-09-10] MEDS: BUDESONIDE 0.5 MG/2 ML VIAL (PULMICORT) INH SCH ×2 (06:55→18:50)
[2016-09-10 06:56] LABS: ALKALINE PHOSPHATASE 131 U/L (45-117); AST/SGOT 9 U/L (15-37)
[2016-09-10 07:17] LABS: COMPLETE YES
[2016-09-10] MEDS: FUROSEMIDE 20 MG TAB PO SCH (07:57)
[2016-09-10] MEDS: CARVEDILOL 12.5 MG TAB PO SCH ×2 (07:57→20:55)
[2016-09-10] MEDS: SUCRALFATE 1 GM/10 ML UDC PO SCH ×4 (07:57→20:53)
[2016-09-10] MEDS: CYANOCOBALAMIN 500 MCG TAB (VIT B-12) PO SCH (07:57)
[2016-09-10] MEDS ORDERED: VANCOMYCIN INJ 1,400 MG in SODIUM CHLORIDE 0.9% 500ML 500 ML IV SCH (08:00)
[2016-09-10] MEDS: INSULIN ASPART 100 UNITS/ML 3 ML PEN SC SCH ×4 (08:04→20:58)
[2016-09-10] MEDS: ALBUT/IPRATROP 3MG/0.5MG NEB 3 ML VIAL INH SCH ×3 (09:38→20:58)
--- NOTE | 2016-09-10 13:59 | Progress Note ---
Subjective Date of Service: Sep 10, 2016. Subjective Pt evaluation today including: conversation w/ patient, physical exam, chart review, lab review, review of studies, review of inpatient medication list Feels better. Breathing somewhat improved. He reports he is supposed to be on thickened liquids but had to drink thin liquids/juices when his blood sugar was really low. He does admit to not liking thickener and sometimes cheats but verbalized understanding of risks involved if he continues to drink thin liquids. Otherwise, no chest pain, no bad pain. TOlerating food. Problem List Medical Problems: (1) Anemia Status: Acute (2) COPD exacerbation Status: Acute (3) Hyperglycemia Status: Acute (4) Pneumonia Status: Acute (5) Subtherapeutic international normalized ratio (INR) Status: Acute Review of Systems All Other Systems: Reviewed and Negative Medications Acetaminophen (Tylenol Tab) 650 mg Q4H PRN PO Last administered on 09/10/16 14:35; Admin Dose 650 MG; Start 09/09/16 at 19:30; Stop 10/09/16 at 19:29 Albuterol/ Ipratropium (Duoneb) 3 ml Q2H PRN INH; Start 09/10/16 at 09:45; Stop 10/10/16 at 09:44 Albuterol/ Ipratropium (Duoneb) 3 ml TIDR INH Last administered on 09/10/16 14: 23; Admin Dose 3 ML; Start 09/10/16 at 15:00; Stop 10/10/16 at 14:59 Budesonide (Pulmicort Respules 0.5MG/ 2ML Neb Soln) 0.5 mg BIDR INH Last administered on 09/10/16 06:55; Admin Dose 0.5 MG; Start 09/09/16 at 20:00; Stop 10/09/16 at 19:59 Carvedilol (Coreg Tab) 12.5 mg BID PO Last administered on 09/10/16 07:57; Admin Dose 12.5 MG; Start 09/09/16 at 21:00; Stop 10/09/16 at 20:59 Cyanocobalamin (Vitamin B-12 Tab) 500 mcg DAILY PO Last administered on 07:57; Admin Dose 500 MCG; Start 09/10/16 at 09:00; Stop 10/10/16 at 08:59 Dextrose (Dextrose 50% 50ML Syringe) 50 ml UD PRN IV; Start 09/09/16 at 19:30; Stop 10/09/16 at 19:29 Furosemide (Lasix Tab) 60 mg DAILY PO Last administered on 09/10/16 07:57; Admin Dose 60 MG; Start 09/10/16 at 09:00; Stop 10/10/16 at 08:59 Glucagon 1 mg 1 mg UD PRN SQ; Start 09/09/16 at 19:30; Stop 10/09/16 at 19:29 Glucose (Glucose 40% Gel) UD PRN PO; Start 09/09/16 at 19:30; Stop 10/09/16 at 19:29 Glucose (Glucose Chew Tab) 1 tabs UD PRN PO; Start 09/09/16 at 19:30; Stop 06/15 at 19:29 Insulin Aspart (novoLOG ASPART) SLIDING SCALE If C... ACHS SC Last administered on 09/10/16 11:48; Admin Dose 1 UNITS; Start 09/09/16 at 21:00; Stop 10/09/16 at 20:59 Insulin Glargine (Lantus Solostar Pen) 24 unit HS SC Last administered on 21:24; Admin Dose 24 UNIT; Start 09/09/16 at 21:00; Stop 10/09/16 at 20:59 Levothyroxine Sodium (Synthroid Tab) 25 mcg DAILYBB PO Last administered on 09/10 05:49; Admin Dose 25 MCG; Start 09/10/16 at 06:00; Stop 10/10/16 at 05:59 Magnesium Hydroxide (Milk Of Magnesia Susp) 30 ml HS PRN PO; Start 09/09/16 at 19:30; Stop 10/09/16 at 19:29 Nitroglycerin (Nitrostat Tab) 0.4 mg UD PRN SL; Start 09/09/16 at 19:30; Stop 10/09/16 at 19:29 Ondansetron HCl (Zofran Inj) 4 mg Q6H PRN IV; Start 09/09/16 at 19:30; Stop 06/15 at 19:29 Paroxetine HCl (pAXil TAB) 20 mg HS PO Last administered on 09/09/16 20:45; Admin Dose 20 MG; Start 09/09/16 at 21:00; Stop 10/09/16 at 20:59 Piperacillin Sod/ Tazobactam Sod (Consult) 1 ea UD PRN N/A; Start 09/09/16 at 20:15; Stop 10/09/16 at 20:14 Piperacillin Sod/ Tazobactam Sod/ Dextrose (Zosyn Iv/D5 100ml) 115 ml @ 28.75 mls/ hr Q8@0200,1000,1800 IV Last administered on 09/10/16 10:35; Admin Dose 28.75 MLS/HR; Start 09/10/16 at 02:00; Stop 09/16/16 at 23:59 Sodium Biphosphate/ Sodium Phosphate (Fleet Enema) 10 ml DAILY PRN [place]; Start at 19:30; Stop 10/09/16 at 19:29 Sucralfate (Carafate Susp) 1 gm ACHS PO Last administered on 09/10/16 11:46; Admin Dose 1 GM; Start 09/09/16 at 21:00; Stop 10/09/16 at 20:59 Tamsulosin HCl (Flomax Cap) 0.4 mg HS PO Last administered on 09/09/16 20:45; Admin Dose 0.4 MG; Start 09/09/16 at 21:00; Stop 10/09/16 at 20:59 Zolpidem Tartrate (Ambien Tab) 5 mg HSZ PRN PO; Start 09/09/16 at 19:30; Stop 10/09/16 at 19:29 Objective Vital Signs Date Time Temp Pulse Resp B/P Pulse Ox O2 Delivery O2 Flow Rate FiO2 09/10/16 12:10 Nasal Cannula 4.0 09/10/16 11:28 36.5 88 18 148/66 95 09/10/16 09:38 78 16 97 Nasal Cannula 4.0 09/10/16 08:15 Nasal Cannula 4.0 09/10/16 07:26 36.9 88 16 150/84 98 09/10/16 06:55 71 16 97 Nasal Cannula 4.0 09/10/16 04:00 Nasal Cannula 4.0 09/10/16 03:36 36.3 83 18 141/82 97 Nasal Cannula 4.0 09/10/16 00:01 Nasal Cannula 4.0 09/09/16 23:44 36.4 95 18 131/63 99 Nasal Cannula 4.0 09/09/16 20:12 103 16 98 Nasal Cannula 4.0 09/09/16 20:00 Nasal Cannula 4.0 09/09/16 19:09 36.4 94 18 125/76 98 Room Air 09/09/16 17:20 Nasal Cannula 4.0 09/09/16 17:00 95 Nasal Cannula 4.0 09/09/16 17:00 36.7 92 20 156/99 95 Nasal Cannula 4.0 Physical Exam Comments: nad, aox3 eomi, perrl, anicteric irreg irreg, no murmurs appreciated diminished left lower base of the lung, coarse base on the right side, no wheezing abd soft ,nt/nd +BS no LE edema Laboratory Results Last 24 Hours Test 09/09/16 20:47 09/09/16 23:51 09/10/16 03:45 09/10/16 04:05 Bedside Glucose 374 mg/dl 170 mg/dl 39 mg/dl 71 mg/dl Test 09/10/16 05:10 09/10/16 06:08 09/10/16 06:33 09/10/16 11:12 Bedside Glucose 97 mg/dl 75 mg/dl 135 mg/dl White Blood Count 6.64 K/uL Red Blood Count 3.30 M/uL Hemoglobin 8.2 g/dL Hematocrit 27.3 % Mean Corpuscular Volume 82.7 fL Mean Corpuscular Hemoglobin 24.8 pg Mean Corpuscular Hemoglobin Concent 30.0 g/dl Platelet Count 149 K/uL Mean Platelet Volume 9.1 fL Neutrophils (%) (Auto) 76.3 % Lymphocytes (%) (Auto) 11.4 % Monocytes (%) (Auto) 10.2 % Eosinophils (%) (Auto) 1.7 % Basophils (%) (Auto) 0.2 % Neutrophils # (Auto) 5.07 K/uL Lymphocytes # (Auto) 0.76 K/uL Monocytes # (Auto) 0.68 K/uL Eosinophils # (Auto) 0.11 K/uL Basophils # (Auto) 0.01 K/uL RDW Standard Deviation 49.1 fL RDW Coefficient of Variation 16.3 % Immature Granulocyte % (Auto) 0.2 % Immature Granulocyte # (Auto) 0.01 K/uL Red Blood Cell Morphology Unremarkable Prothrombin Time 34.7 SECONDS Prothromb Time International Ratio 3.1 Activated Partial Thromboplast Time 50.2 SECONDS Partial Thromboplastin Ratio 1.9 Sodium Level 140 mmol/L Potassium Level 3.9 mmol/L Chloride Level 97 mmol/L Carbon Dioxide Level 39 mmol/L Anion Gap 4.0 mmol/L Blood Urea Nitrogen 17 mg/dl Creatinine 0.46 mg/dl Est Creatinine Clear Calc Drug Dose 159.4 ml/min Estimated GFR () 129.9 Estimated GFR (Non- 112.0 BUN/Creatinine Ratio 36.3 Random Glucose 73 mg/dl Calcium Level 8.4 mg/dl Magnesium Level 1.9 mg/dl Total Bilirubin 0.3 mg/dl Direct Bilirubin < 0.1 mg/dl Aspartate Amino Transf (AST/SGOT) 9 U/L Alanine Aminotransferase (ALT/SGPT) 17 U/L Alkaline Phosphatase 131 U/L Total Protein 5.7 gm/dl Albumin 2.2 gm/dl Assessment and Plan 1. Pneumonia - likely aspiration - will stop Vanco with negative MRSA swab - cont Zosyn for now - nebs atc and prn 2. Afib - chronic - on coumadin at home - cont carvedilol - will hold off coumadin for now especially in setting of abx, INR above 3 - check inr in AM - rate controlled 3. Aspiration - will discuss with speech therapy which diet will fit best for patient - awaiting call back from speech therapist 4. BPH - cont tamsulosin
[2016-09-10] MEDS: ACETAMINOPHEN 325 MG TAB PO PRN (14:35)
[2016-09-10] MEDS: TAMSULOSIN HCL 0.4 MG CAP PO SCH (20:53)
[2016-09-10] MEDS: PAROXETINE 20 MG TAB PO SCH (20:55)
[2016-09-10] MEDS: INSULIN GLARGINE SOLOSTAR 100 UNITS/ML 3 ML PEN SC SCH (20:59)
[2016-09-10] MEDS ORDERED: NURSING VERBAL MED ORDER ONE (21:15)
[2016-09-10] MEDS ORDERED: OXYCODONE/ACETAMINOPHEN 5-325 TAB PO SCH (21:45)
[2016-09-11] VITALS (12 sets, daily range): BP systolic 108–138; BP diastolic 67–82; PULSE 75–99; TEMP 36.4–36.6; O2SAT 90–100
[2016-09-11] MEDS: PIPERACILL/TAZOBAC IV 3.375 GM in DEXTROSE 5% 100ML 100 ML IV SCH ×3 (01:59→17:26)
[2016-09-11] MEDS: LEVOTHYROXINE 25 MCG TAB PO SCH (06:09)
[2016-09-11] MEDS ORDERED: VANCOMYCIN TROUGH SCH (07:30)
[2016-09-11 07:34] LABS: BASO % 0.2 %; BASO ABS # 0.01 K/uL (0-0.2); EOS % 3.7 %; HEMATOCRIT 27.2 % (42-52); IG% 0.2 %; LYMPH % 14.2 %; LYMPH ABS # 0.76 K/uL (1.2-3.4); MEAN CELL VOLUME 81.9 fL (80-100); MEAN CORPUSCULAR HEMOGLOBIN 24.4 pg (25-34); MEAN CORPUSCULAR HGB CONC 29.8 g/dl (32-36); MEAN PLATELET VOLUME 9.1 fL (7.4-10.4); MONO % 12.9 %; NEUT % 68.8 %; PLATELET COUNT 143 K/uL (130-400); RED BLOOD COUNT 3.32 M/uL (4.7-6.1); WHITE BLOOD COUNT 5.34 K/uL (4.8-10.8)
[2016-09-11] MEDS: BUDESONIDE 0.5 MG/2 ML VIAL (PULMICORT) INH SCH ×2 (07:36→19:10)
[2016-09-11] MEDS: ALBUT/IPRATROP 3MG/0.5MG NEB 3 ML VIAL INH SCH ×3 (07:36→19:10)
[2016-09-11 07:42] LABS: INR 2.1 (0.9-1.1); PARTIAL THROMBOPLASTIN RATIO 1.5; PROTHROMBIN TIME (PATIENT) 23.3 SECONDS (9.0-12.0)
[2016-09-11] MEDS: CYANOCOBALAMIN 500 MCG TAB (VIT B-12) PO SCH (07:47)
[2016-09-11] MEDS: CARVEDILOL 12.5 MG TAB PO SCH ×2 (07:48→21:03)
[2016-09-11] MEDS: SUCRALFATE 1 GM/10 ML UDC PO SCH ×4 (07:48→21:03)
[2016-09-11] MEDS: FUROSEMIDE 20 MG TAB PO SCH (07:49)
[2016-09-11] MEDS: INSULIN ASPART 100 UNITS/ML 3 ML PEN SC SCH ×5 (07:51→20:48)
[2016-09-11 08:06] LABS: BUN/CREATININE RATIO 29.4 (10-20); CALCIUM 8.2 mg/dl (8.5-10.1); CREATININE 0.47 mg/dl (0.60-1.40); POTASSIUM 3.7 mmol/L (3.5-5.1)
--- NOTE | 2016-09-11 08:09 | Clinical Documentation Query ---
CAESAR Sexton : CLINICAL DOCUMENTATION QUERY Patient is a 71 year old male admitted for evaluation and treatment of aspiration pneumonia. H&P notes history of CHF, not otherwise specified. Historical EMR documentation includes a diagnosis of chronic diastolic CHF. Echocardiogram from 07/31/16 demonstrated a low normal LVEF of 50-55%. Please explicitly specify the acuity/chronicity and type as appropriate as this directly affects DRG assignment. In your clinical opinion is this patient being managed for: ( ) Chronic diastolic congestive heart failure ( X ) Other explanation of clinical findings (Please Explain) ( ) Unable to determine (Please Define) ( ) Need to Discuss ( ) Not Agree The medical record reflects the following clinical findings, treatment, and risk factors. Clinical Indicators: As above Treatment: Telemetry, Coreg, Lasix, serial labs, daily weights, I/O, DAHA diet Risk Factors: Age, hypertension, atrial fibrillation Please clarify and document your clinical opinion in the progress notes and discharge summary. Terms such as "probable", "suspected", "likely", "questionable", "possible", or "still to be ruled out" are acceptable. IF IN AGREEMENT, YOU MUST DOCUMENT ABOVE DIAGNOSTIC STATEMENT IN DAILY PROGRESS NOTES AND DISCHARGE SUMMARY. This document is not part of the patient's record. Thank You, Nam Coello, ALFONZO [phone]
[2016-09-11 08:59] LABS: COMPLETE YES
--- NOTE | 2016-09-11 11:08 | Progress Note ---
Subjective Date of Service: Sep 11, 2016. Subjective Pt evaluation today including: conversation w/ patient, physical exam, lab review, review of studies, conversation w/ jury consultant, review of inpatient medication list Patient c/o epigastric discomfort and sensation of right lower rib bruising. He othewise does not report any changes to his breathing. No increased in oxygen requirement. No chest pain. Problem List Medical Problems: (1) Anemia Status: Acute (2) COPD exacerbation Status: Acute (3) Hyperglycemia Status: Acute (4) Pneumonia Status: Acute (5) Subtherapeutic international normalized ratio (INR) Status: Acute Review of Systems All Other Systems: Reviewed and Negative Medications Acetaminophen (Tylenol Tab) 650 mg Q4H PRN PO Last administered on 09/11/16 12:26; Admin Dose 650 MG; Start 09/09/16 at 19:30; Stop 10/09/16 at 19:29 Albuterol/ Ipratropium (Duoneb) 3 ml Q2H PRN INH; Start 09/10/16 at 09:45; Stop 10/10/16 at 09:44 Albuterol/ Ipratropium (Duoneb) 3 ml TIDR INH Last administered on 09/11/16 07: 36; Admin Dose 3 ML; Start 09/10/16 at 15:00; Stop 10/10/16 at 14:59 Budesonide (Pulmicort Respules 0.5MG/ 2ML Neb Soln) 0.5 mg BIDR INH Last administered on 09/11/16 07:36; Admin Dose 0.5 MG; Start 09/09/16 at 20:00; Stop 10/09/16 at 19:59 Carvedilol (Coreg Tab) 12.5 mg BID PO Last administered on 09/11/16 07:48; Admin Dose 12.5 MG; Start 09/09/16 at 21:00; Stop 10/09/16 at 20:59 Cyanocobalamin (Vitamin B-12 Tab) 500 mcg DAILY PO Last administered on 07:47; Admin Dose 500 MCG; Start 09/10/16 at 09:00; Stop 10/10/16 at 08:59 Dextrose (Dextrose 50% 50ML Syringe) 50 ml UD PRN IV; Start 09/09/16 at 19:30; Stop 10/09/16 at 19:29 Furosemide/Syringe (Lasix Inj/ Syringe) 4 ml @ 4 mls/min BID@0800,1400 IV Last administered on 09/11/16 13:01; Admin Dose 4 MLS/MIN; Start 09/11/16 at 14:00; Stop 10/11/16 at 13:59 Glucagon 1 mg 1 mg UD PRN SQ; Start 09/09/16 at 19:30; Stop 10/09/16 at 19:29 Glucose (Glucose 40% Gel) UD PRN PO; Start 09/09/16 at 19:30; Stop 10/09/16 at 19:29 Glucose (Glucose Chew Tab) 1 tabs UD PRN PO; Start 09/09/16 at 19:30; Stop 06/15 at 19:29 Insulin Aspart (novoLOG ASPART) SLIDING SCALE If C... ACHS SC Last administered on 09/11/16 08:03; Admin Dose 2 UNITS; Start 09/09/16 at 21:00; Stop 10/09/16 at 20:59 Insulin Glargine (Lantus Solostar Pen) 24 unit HS SC Last administered on 20:59; Admin Dose 24 UNIT; Start 09/09/16 at 21:00; Stop 10/09/16 at 20:59 Levothyroxine Sodium (Synthroid Tab) 25 mcg DAILYBB PO Last administered on 09/11 06:09; Admin Dose 25 MCG; Start 09/10/16 at 06:00; Stop 10/10/16 at 05:59 Magnesium Hydroxide (Milk Of Magnesia Susp) 30 ml HS PRN PO; Start 09/09/16 at 19:30; Stop 10/09/16 at 19:29 Nitroglycerin (Nitrostat Tab) 0.4 mg UD PRN SL; Start 09/09/16 at 19:30; Stop 10/09/16 at 19:29 Ondansetron HCl (Zofran Inj) 4 mg Q6H PRN IV; Start 09/09/16 at 19:30; Stop 06/15 at 19:29 Paroxetine HCl (pAXil TAB) 20 mg HS PO Last administered on 09/10/16 20:55; Admin Dose 20 MG; Start 09/09/16 at 21:00; Stop 10/09/16 at 20:59 Piperacillin Sod/ Tazobactam Sod (Consult) 1 ea UD PRN N/A; Start 09/09/16 at 20:15; Stop 10/09/16 at 20:14 Piperacillin Sod/ Tazobactam Sod/ Dextrose (Zosyn Iv/D5 100ml) 115 ml @ 28.75 mls/ hr Q8@0200,1000,1800 IV Last administered on 09/11/16 09:27; Admin Dose 28.75 MLS/HR; Start 09/10/16 at 02:00; Stop 09/16/16 at 23:59 Sodium Biphosphate/ Sodium Phosphate (Fleet Enema) 10 ml DAILY PRN [place]; Start at 19:30; Stop 10/09/16 at 19:29 Sucralfate (Carafate Susp) 1 gm ACHS PO Last administered on 09/11/16 10:38; Admin Dose 1 GM; Start 09/09/16 at 21:00; Stop 10/09/16 at 20:59 Tamsulosin HCl (Flomax Cap) 0.4 mg HS PO Last administered on 09/10/16 20:53; Admin Dose 0.4 MG; Start 09/09/16 at 21:00; Stop 10/09/16 at 20:59 Warfarin Sodium 2 mg 2 mg DAILY@16 PO; Start 09/11/16 at 16:00; Stop 10/11/16 at 15:59 Zolpidem Tartrate (Ambien Tab) 5 mg HSZ PRN PO; Start 09/09/16 at 19:30; Stop 10/09/16 at 19:29 Objective Vital Signs Date Time Temp Pulse Resp B/P Pulse Ox O2 Delivery O2 Flow Rate FiO2 09/11/16 10:33 36.5 87 16 113/76 97 4.0 09/11/16 08:00 Nasal Cannula 4.0 09/11/16 07:41 36.6 93 16 126/78 90 4.0 09/11/16 07:36 82 18 99 Nasal Cannula 4.0 09/11/16 04:00 Nasal Cannula 4.0 09/11/16 03:43 36.4 82 22 137/68 97 Nasal Cannula 4.0 09/10/16 23:59 Nasal Cannula 4.0 09/10/16 23:15 36.7 95 20 129/81 99 Nasal Cannula 4.0 09/10/16 20:00 Nasal Cannula 4.0 09/10/16 19:19 36.4 98 20 137/78 100 Nasal Cannula 4.0 09/10/16 18:50 86 18 98 Nasal Cannula 4.0 09/10/16 16:00 97 Room Air 09/10/16 15:03 36.6 89 18 136/77 97 Nasal Cannula 4.0 09/10/16 14:23 86 16 98 Nasal Cannula 4.0 09/10/16 12:10 Nasal Cannula 4.0 09/10/16 11:28 36.5 88 18 148/66 95 Physical Exam Comments: no acute cardiorespiratory distress, aox3 eomi, perrl, anicteric irreg irreg, no murmurs appreciated diminished left breath sounds, rhonchi right base, no wheezing abd soft nt/nd +BS no LE edema Laboratory Results Last 24 Hours Test 09/10/16 11:12 09/10/16 16:39 09/10/16 20:20 09/11/16 00:17 Bedside Glucose 135 mg/dl 96 mg/dl 179 mg/dl 172 mg/dl Test 09/11/16 06:38 09/11/16 06:41 Bedside Glucose 118 mg/dl White Blood Count 5.34 K/uL Red Blood Count 3.32 M/uL Hemoglobin 8.1 g/dL Hematocrit 27.2 % Mean Corpuscular Volume 81.9 fL Mean Corpuscular Hemoglobin 24.4 pg Mean Corpuscular Hemoglobin Concent 29.8 g/dl Platelet Count 143 K/uL Mean Platelet Volume 9.1 fL Neutrophils (%) (Auto) 68.8 % Lymphocytes (%) (Auto) 14.2 % Monocytes (%) (Auto) 12.9 % Eosinophils (%) (Auto) 3.7 % Basophils (%) (Auto) 0.2 % Neutrophils # (Auto) 3.67 K/uL Lymphocytes # (Auto) 0.76 K/uL Monocytes # (Auto) 0.69 K/uL Eosinophils # (Auto) 0.20 K/uL Basophils # (Auto) 0.01 K/uL RDW Standard Deviation 49.6 fL RDW Coefficient of Variation 16.4 % Immature Granulocyte % (Auto) 0.2 % Immature Granulocyte # (Auto) 0.01 K/uL Red Blood Cell Morphology Unremarkable Prothrombin Time 23.3 SECONDS Prothromb Time International Ratio 2.1 Activated Partial Thromboplast Time 39.4 SECONDS Partial Thromboplastin Ratio 1.5 Sodium Level 141 mmol/L Potassium Level 3.7 mmol/L Chloride Level 98 mmol/L Carbon Dioxide Level 40 mmol/L Anion Gap 3.0 mmol/L Blood Urea Nitrogen 14 mg/dl Creatinine 0.47 mg/dl Est Creatinine Clear Calc Drug Dose 155.9 ml/min Estimated GFR () 128.7 Estimated GFR (Non- 111.1 BUN/Creatinine Ratio 29.4 Random Glucose 102 mg/dl Calcium Level 8.2 mg/dl Magnesium Level 2.0 mg/dl Total Bilirubin 0.4 mg/dl Direct Bilirubin 0.1 mg/dl Aspartate Amino Transf (AST/SGOT) 10 U/L Alanine Aminotransferase (ALT/SGPT) 14 U/L Alkaline Phosphatase 129 U/L Total Protein 5.5 gm/dl Albumin 2.0 gm/dl Assessment and Plan 1. Pneumonia - likely aspiration - now has left sided complete opacification with mediastinal shift - pulmonary consulted and spoke directly to Dr. Beaver who will see patient today - will keep him NPO after midnight for possible bronch - will also possibly need a tap after visualization with US is done - cont Zosyn for now - will also increase lasix to 40mg BID 2. Afib - chronic - on coumadin at home - cont carvedilol - rate-controlled - will resume coumadin and check INR in AM 3. Aspiration - will discuss with speech therapy which diet will fit best for patient - awaiting call back from speech therapist 4. BPH - cont tamsulosin 5. Neuropathy - Will start him on gabapentin 100 mg BID
--- NOTE | 2016-09-11 12:01 | DIAGNOSTIC IMAGING REPORT ---
CHEST ONE VIEW PORTABLE HISTORY: left side opacity COMPARISON: Chest 09/09/2016. FINDINGS: Interval complete opacification of the left hemithorax. Left PICC terminates in the distal SVC. There is left mediastinal shift. No pneumothorax. Small right pleural effusion. Probable small left pleural effusion. Cervical spinal fusion hardware is again noted. IMPRESSION: 1. There is now complete opacification the left hemithorax which has progressed. There is associated left mediastinal shift. Therefore, this is concerning for left lung atelectasis/collapse possibly due to mucous plugging. Recommend bronchoscopy for further evaluation. 2. Bilateral pleural effusions persist. Electronically signed by: Rico Garcia M.D. 09/11/2016 12:00 PM Dictated Date/Time: 09/11/2016 11:57 AM
[2016-09-11] MEDS: ACETAMINOPHEN 325 MG TAB PO PRN (12:26)
[2016-09-11] MEDS: FUROSEMIDE INJ 40 MG in SYRINGE 0 ML IV SCH (13:01)
[2016-09-11 15:30] LABS: PLEURAL FLUID TOTAL PROTEIN 1.6 g/dl
[2016-09-11 15:48] LABS: PLEURAL FLUID APPEARANCE HAZY; PLEURAL FLUID COLOR STRAW; PLEURAL FLUID MONONUC RELAT 71.5 %; PLEURAL FLUID POLYNUC 28.5 %; PLEURAL FLUID SOURCE LEFT LUNG; PLEURAL FLUID WBC (A) 220 /uL
--- NOTE | 2016-09-11 16:06 | DIAGNOSTIC IMAGING REPORT ---
CHEST CT WITHOUT CONTRAST CT DOSE: 495.06 mGy.cm HISTORY: Evaluate left pleural effusion. Left lung opacification. TECHNIQUE: Multiaxial CT images of the chest were performed without contrast. COMPARISON: Chest 09/11/2016. FINDINGS: There is a large mucous plug seen within the left mainstem bronchus and extending into the left lobar branches. This likely accounts for the complete collapse of the left lung. The majority of the segmental and subsegmental left bronchi remain patent. Mild emphysema. A few tiny nodular densities within the right upper lobe. The largest measures 5 mm. No pneumothorax. Small bilateral pleural effusions. The right pleural effusion results in partial compressive atelectasis of the right lower lobe. There is left mediastinal shift. There are few punctate gallstones. The visualized liver and spleen are unremarkable. There is a punctate stone within the left kidney. A 1.8 cm hypodense lesion within the right kidney is incompletely characterize on this noncontrast study but favors a cyst. A few small hyperdense nodules seen within the retroperitoneum posterior to the liver are of doubtful clinical significance. Dominant nodule measures 14 mm. Normal adrenal glands. A left PICC terminates at the superior cavoatrial junction. The heart is mildly enlarged. Mildly enlarged mediastinal lymph nodes. Dominant precarinal lymph node measures 2.1 x 1.3 cm. The main pulmonary artery is distended up to 4 cm. This is consistent with pulmonary arterial hypertension. Mild calcified plaque within the normal caliber thoracic aorta. IMPRESSION: 1. Complete collapse of the left lung with left mediastinal shift which appears to be secondary to a large mucous plug within the left mainstem bronchus. Bronchoscopy is recommended. 2. Small bilateral pleural effusions. 3. Pulmonary arterial hypertension. 4. Mild mediastinal lymphadenopathy. 5. A few tiny nodular densities within the right upper lobe which favor mild inflammatory/infectious change. 6. Cholelithiasis. 7. Cardiomegaly. 8. Additional findings as described above. Electronically signed by: Rico Garcia M.D. 09/11/2016 4:05 PM Dictated Date/Time: 09/11/2016 3:56 PM
[2016-09-11] MEDS: WARFARIN SOD 2 MG TAB PO SCH (16:18)
--- NOTE | 2016-09-11 16:58 | Pulmonary Consultation ---
History General Date of Service: Sep 11, 2016. Stated Complaint: Aspiration Pneumonia, Hypoxia HPI The patient is a 71 year old male who presents to [facility] with complaints of Aspiration Pneumonia, Hypoxia. The patient's primary care provider is Elton Velazquez. 71-year-old male admitted for progressive hypoxia and notable opacifications chest x-ray the left hemithorax. Patient was recently admitted to the [facility] in July for CHF exacerbation and prior to that at [facility]. During both events the patient underwent thoracentesis with anywhere from 600-800 cc removed notably transudate in nature. Also during his last admission at the [facility] he was evaluated for possible aspiration and video swallow suggested aspiration to thin liquids. During the patient's hospital stay was noted he had progressive opacification of his left hemithorax and pulmonary was counseled. During my interview the patient noted dyspnea on exertion/shortness of breath and intermittently productive cough but denied: Fever, chills, cardiac chest pain, pleurisy. Historian: patient, EMS Review of Systems Constitutional: reports: weakness Eyes: reports: no symptoms ENT: reports: no symptoms Cardiovascular: reports: no symptoms Respiratory: reports: cough, shortness of breath Gastrointestinal: reports: no symptoms Genitourinary - Male: reports: no symptoms Musculoskeletal: reports: no symptoms Integumentary: reports: no symptoms Neurologic: reports: paresthesia Psychiatric: reports: no symptoms Endocrine: no symptoms Hematologic / Lymphatic: no symptoms Allergic / Immunologic: no symptoms Past Medical History Past Medical History: #1 COPD FEV: 68% #2 CHF-diastolic #3 hypothyroidism #4 GI bleed #5 peripheral vascular disease/CVA #6 atrial fibrillation #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 #8 diabetes mellitus #9 chronic right heel abscess Past Surgical History: #1 thoracentesis [place]: Volume: 600 cc/WBC: 52/RBCs: 109/neutrophils: 41%/lymphocytes 14%/monocytes 20% /mesothelial cells 3%/glucose 107/LDH 53/protein 0.8 [facility]: Total protein: 1.0/LDH: 52/glucose: 160/amylase: 15 #2 left-sided amputation #3 anterior cervical fusion Family History No pertinent family history Social History Hx Tobacco Use In Past Year?: No Smoking Status: Former Smoker Marital status: single Occupational Status: retired History of MDRO History of MDRO: No Allergies Coded Allergies: No Known Allergies (Unverified , 04/30/16) Current Medications Reported Home Medications Medications Dose Route/Sig Max Daily Dose Days Date Category Dose Instructions Levofloxacin 750 Mg Tab 750 Mg PO DAILY@11 4 08/20/16 Rx Take every morning at 10am. Coumadin (Warfarin Sod) 2 Mg Tab 2 Mg PO DAILY@1600 30 08/09/16 Rx Lasix (Furosemide) 20 Mg Tab 60 Mg PO DAILY 15 08/09/16 Rx Take three 20mg tablets, once daily, for a total daily dose of 60mg. Novolin R (Insulin Human Regular) 1 Ea Ea SQ ACHS 07/30/16 Reported 151-200=0 UNITS, 201-250=2 UNITS, 251-300=4 UNITS, 301-350 =8 UNITS, 351-400=10 UNITS, <60 OR >400 CALL MD Leon Solostar (Insulin Glargine) 100 Unit/Ml Inj 24 SC HS 07/30/16 Reported Coreg (Carvedilol) 12.5 Mg Tab 12.5 Mg PO BID 07/30/16 Reported Pulmicort Respules 0.5MG/2ML (Budesonide) 0.5 Mg/2 Ml Nebu 2 Ml INH BID 07/30/16 Reported Dulcolax (Bisacodyl) 10 Mg Sup 5 Mg RE UD 07/30/16 Reported FOR NO BM 4 DAYS Albuterol Sulfate (Albuterol Sulf) 2.5 Mg/3 Ml Nebu 3 Ml INH Q4H PRN 07/30/16 Reported Tylenol (Acetaminophen) 325 Mg Tab 650 Mg PO Q4H PRN 07/30/16 Reported Carafate (Sucralfate) 1 Gm/10 Ml Darya 10 Ml PO ACHS 30 07/30/16 Reported Fleet Enema (Sodium Phosphate/Biphosphate) [place] 1 Ea [place] DAILY PRN 07/30/16 Reported Prednisone 10 Mg Tab 10 Mg PO DAILY 07/30/16 Reported Paxil (Paroxetine HCl) 20 Mg Tab 20 Mg PO HS 07/30/16 Reported Prilosec (Omeprazole) 20 Mg Capcr 20 Mg PO DAILY 07/30/16 Reported Milk Of Magnesia (Magnesium Hydroxide) 30 Ml Susp 30 Ml PO HS PRN 07/30/16 Reported Flomax (Tamsulosin Hcl) 0.4 Mg Cap 1 Cap PO HS 30 04/30/16 Reported Levothyroxine Sodium 25 Mcg Tab 1 Tab PO DAILY 30 04/30/16 Reported Vitamin B-12 (Cyanocobalamin) 500 Mcg Tab 500 Mcg PO DAILY 04/30/16 Reported TAKE 2 ( 500MCG) TABLETS BY MOUTH EVERY DAY Physical Physical Exam Vital Signs: Date Time Temp Pulse Resp B/P Pulse Ox O2 Delivery O2 Flow Rate FiO2 09/11/16 15:35 36.5 75 16 138/82 100 Nasal Cannula 4.0 09/11/16 15:27 84 20 128/80 96 4.0 09/11/16 14:40 80 18 100 Nasal Cannula 4.0 09/11/16 11:16 Nasal Cannula 4.0 09/11/16 10:33 36.5 87 16 113/76 97 4.0 09/11/16 08:00 Nasal Cannula 4.0 09/11/16 07:41 36.6 93 16 126/78 90 4.0 09/11/16 07:36 82 18 99 Nasal Cannula 4.0 09/11/16 04:00 Nasal Cannula 4.0 09/11/16 03:43 36.4 82 22 137/68 97 Nasal Cannula 4.0 09/10/16 23:59 Nasal Cannula 4.0 09/10/16 23:15 36.7 95 20 129/81 99 Nasal Cannula 4.0 09/10/16 20:00 Nasal Cannula 4.0 09/10/16 19:19 36.4 98 20 137/78 100 Nasal Cannula 4.0 09/10/16 18:50 86 18 98 Nasal Cannula 4.0 General Appearance: NO APPARENT DISTRESS, uncomfortable Head: NORMOCEPHALIC, ATRAUMATIC Eyes: PERRLA, NO DISCHARGE, EOMI, SCLERAE NORMAL ENT: NORMAL EAR EXAM, NORMAL NASAL EXAM, poor dentition Neck: NORMAL RANGE OF MOTION, NO TENDERNESS, TRACHEA MIDLINE, NO STRIDOR Respiratory: other (absent breath sounds on the left marily-thorax. US shows pleural effusion) Abdomen: NON TENDER, NORMAL BOWEL SOUNDS, NO REBOUND, NO MASSES Genitourinary - Male: EXTERNAL GENITALIA NORMAL Back: NORMAL INSPECTION, NO MIDLINE TENDERNESS, NO CVA TENDERNESS, NO PARAVERTEBRAL TTP Upper Extremities: NO EDEMA, NO DEFORMITY, NORMAL ROM Lower Extremities: NO EDEMA, NO DEFORMITY, other (chronic right lower extremity ulcer healed) Pulses: carotid (R) (1+), carotid (L) (1+), posterior tibial (R), posterior tibial (L) (2+) Neuro: ALERT, ORIENTED x 3, NORMAL MOTOR EXAM Reflexes: biceps (R) (2+), bicpes (L) (2+), achilles (R) (1+), achilles (L) (1+ ) Babinski Testing: right (downgoing), left (downgoing) Psychiatric: NORMAL AFFECT, NO SUICIDAL IDEATION, CONTRACTS FOR SAFETY Diagnostics Labs Results Past 24 Hours Test 09/10/16 20:20 09/11/16 00:17 09/11/16 06:38 09/11/16 06:41 Range/Units Bedside Glucose 179 172 118 70-99 mg/dl White Blood Count 5.34 4.8-10.8 K/uL Red Blood Count 3.32 4.7-6.1 M/uL Hemoglobin 8.1 14.0-18.0 g/dL Hematocrit 27.2 42-52 % Mean Corpuscular Volume 81.9 80-100 fL Mean Corpuscular Hemoglobin 24.4 25-34 pg Mean Corpuscular Hemoglobin Concent 29.8 32-36 g/dl Platelet Count 143 130-400 K/uL Mean Platelet Volume 9.1 7.4-10.4 fL Neutrophils (%) (Auto) 68.8 % Lymphocytes (%) (Auto) 14.2 % Monocytes (%) (Auto) 12.9 % Eosinophils (%) (Auto) 3.7 % Basophils (%) (Auto) 0.2 % Neutrophils # (Auto) 3.67 1.4-6.5 K/uL Lymphocytes # (Auto) 0.76 1.2-3.4 K/uL Monocytes # (Auto) 0.69 0.11-0.59 K/uL Eosinophils # (Auto) 0.20 0-0.5 K/uL Basophils # (Auto) 0.01 0-0.2 K/uL RDW Standard Deviation 49.6 36.4-46.3 fL RDW Coefficient of Variation 16.4 11.5-14.5 % Immature Granulocyte % (Auto) 0.2 % Immature Granulocyte # (Auto) 0.01 0.00-0.02 K/uL Red Blood Cell Morphology Unremarkable Prothrombin Time 23.3 9.0-12.0 SECONDS Prothromb Time International Ratio 2.1 0.9-1.1 Activated Partial Thromboplast Time 39.4 21.0-31.0 SECONDS Partial Thromboplastin Ratio 1.5 Sodium Level 141 136-145 mmol/L Potassium Level 3.7 3.5-5.1 mmol/L Chloride Level 98 98-107 mmol/L Carbon Dioxide Level 40 21-32 mmol/L Anion Gap 3.0 3-11 mmol/L Blood Urea Nitrogen 14 7-18 mg/dl Creatinine 0.47 0.60-1.40 mg/dl Est Creatinine Clear Calc Drug Dose 155.9 ml/min Estimated GFR () 128.7 Estimated GFR (Non- 111.1 BUN/Creatinine Ratio 29.4 10-20 Random Glucose 102 70-99 mg/dl Calcium Level 8.2 8.5-10.1 mg/dl Magnesium Level 2.0 1.8-2.4 mg/dl Total Bilirubin 0.4 0.2-1 mg/dl Direct Bilirubin 0.1 0-0.2 mg/dl Aspartate Amino Transf (AST/SGOT) 10 15-37 U/L Alanine Aminotransferase (ALT/SGPT) 14 12-78 U/L Alkaline Phosphatase 129 45-117 U/L Total Protein 5.5 6.4-8.2 gm/dl Albumin 2.0 3.4-5.0 gm/dl Test 09/11/16 11:02 09/11/16 14:46 09/11/16 16:18 Range/Units Bedside Glucose 93 71 70-99 mg/dl Pleural Fluid Source LEFT LUNG Pleural Fluid Color STRAW Pleural Fluid Appearance HAZY Pleural Fluid WBC 220 /uL Pleural Fluid RBC < 3000 /uL Pleural Fluid Polynuclear WBCs % 28.5 % Pleural Fluid Mononuclear WBCs % 71.5 % Pleural Fluid Total Protein 1.6 g/dl Pleural Fluid LDH 81 IU Pleural Fluid Glucose 95 mg/dl Pleural Fluid Amylase 26 U/L Microbiology Results 09/11/16 Acid Fast Stain, Received Pending 09/11/16 Mycobacterial Culture, Received Pending 09/11/16 Gram Stain - Final, Resulted 09/11/16 Bacterial Culture, Resulted Pending Diagnostic Radiology Chest x-ray: Shows opacification of the left hemithorax CT thorax: Mucous plugging of possible chronic aspiration of the left mainstem bronchus EKG Atrial fibrillation with premature ventricular activity Impression Assessment and Plan 71-year-old male with left hemithoracic opacification on chest x-ray: #1 Hemithoracic Opacification: Patient is combination of pleural effusion and mainstem bronchial obstruction most likely from aspiration. At this time we'll perform thoracentesis for further evaluation, please refer to that note. Following this will place the patient nothing by mouth and set up for bronchoscopy in the operating room possibly requiring intubation for foreign body aspiration.
--- NOTE | 2016-09-11 17:02 | Procedure Note ---
Procedure Note Date of Service Sep 11, 2016. Procedure Note Procedure: Thoracentesis/thoracic ultrasound Consent: Obtained to the patient placed in the chart Preoperative diagnosis: Left hemithorax opacification/pleural effusion Postoperative diagnosis: Left hemithorax pleural effusion/aspiration Analgesia: 10 cc of 1% liquid lidocaine Thoracic ultrasound: Thoracic ultrasound performed showing moderate size pleural effusions along the posterior axillary line Procedure: The patient was placed on his right side in a reverse Trendelenburg position. Ultrasound was used for site guidance. Patient was then draped and prepped in a sterile fashion with a modified Seldinger technique used for catheter placement. Catheter was noted to slight easily into place and pleural fluid clear in color was removed. Approximately 800 cc was removed. During the procedure the patient noted, "tugging". At this time the procedure was discontinued and follow-up noncontrast CT was obtained. The follow-up CT did note 100% occlusion of the left mainstem most likely with aspirated material. Complications: None
[2016-09-11] MEDS: TAMSULOSIN HCL 0.4 MG CAP PO SCH (21:03)
[2016-09-11] MEDS: PAROXETINE 20 MG TAB PO SCH (21:03)
[2016-09-11] MEDS: INSULIN GLARGINE SOLOSTAR 100 UNITS/ML 3 ML PEN SC SCH (21:06)
[2016-09-12] VITALS (17 sets, daily range): BP systolic 114–128; BP diastolic 61–76; PULSE 74–97; TEMP 34.2–36.8; O2SAT 92–98; Ht 182.9 cm; Wt 88.4 kg
[2016-09-12] MEDS: PIPERACILL/TAZOBAC IV 3.375 GM in DEXTROSE 5% 100ML 100 ML IV SCH ×3 (02:19→18:02)
[2016-09-12] MEDS: LEVOTHYROXINE 25 MCG TAB PO SCH (05:56)
[2016-09-12] MEDS: SUCRALFATE 1 GM/10 ML UDC PO SCH ×4 (07:00→19:55)
[2016-09-12] MEDS: ALBUT/IPRATROP 3MG/0.5MG NEB 3 ML VIAL INH SCH ×3 (07:11→19:21)
[2016-09-12] MEDS: BUDESONIDE 0.5 MG/2 ML VIAL (PULMICORT) INH SCH ×2 (07:11→19:21)
[2016-09-12 07:45] LABS: BASO % 0.3 %; BASO ABS # 0.02 K/uL (0-0.2); COMPLETE YES; EOS % 0.5 %; HEMATOCRIT 29.5 % (42-52); IG% 0.2 %; LYMPH % 11.1 %; LYMPH ABS # 0.67 K/uL (1.2-3.4); MEAN CELL VOLUME 80.8 fL (80-100); MEAN CORPUSCULAR HEMOGLOBIN 24.7 pg (25-34); MEAN CORPUSCULAR HGB CONC 30.5 g/dl (32-36); MEAN PLATELET VOLUME 9.4 fL (7.4-10.4); MONO % 8.5 %; NEUT % 79.4 %; PLATELET COUNT 155 K/uL (130-400); RED BLOOD COUNT 3.65 M/uL (4.7-6.1); WHITE BLOOD COUNT 6.02 K/uL (4.8-10.8)
[2016-09-12 07:52] LABS: INR 1.8 (0.9-1.1); PARTIAL THROMBOPLASTIN RATIO 1.4; PROTHROMBIN TIME (PATIENT) 20.1 SECONDS (9.0-12.0)
--- NOTE | 2016-09-12 08:08 | History & Physical Bridge Note ---
H&P Re-Evaluation Bridge Note: I have examined the patient, reviewed the History & Physical and in the interval since the performance of the History & Physical I have noted the following changes of clinical significance: Low SaO2 most likely combination of sleeping and left marily-thorax collapse. The bronchoscopy has been re- addressed with this patient and he notes possible respiratory failure at this time after procedure with associated increased V/Q mismatch.
[2016-09-12 08:28] LABS: BUN/CREATININE RATIO 30.4 (10-20); CALCIUM 8.6 mg/dl (8.5-10.1); CREATININE 0.45 mg/dl (0.60-1.40); POTASSIUM 3.5 mmol/L (3.5-5.1)
[2016-09-12] MEDS ORDERED: NURSING VERBAL MED ORDER ONE ×3 (08:30→14:45)
[2016-09-12] MEDS: DEXTROSE 5% 1000ML 1,000 ML IV SCH (08:33)
[2016-09-12] MEDS: INSULIN ASPART 100 UNITS/ML 3 ML PEN SC SCH (08:35)
[2016-09-12] MEDS: CYANOCOBALAMIN 500 MCG TAB (VIT B-12) PO SCH (09:00)
--- NOTE | 2016-09-12 09:51 | Progress Note ---
Subjective Date of Service: Sep 12, 2016. Subjective Pt evaluation today including: conversation w/ patient, conversation w/ family , physical exam, lab review, review of studies, review of inpatient medication list Awaiting bronchoscopy this morning. Hypoglycemia this morning and started on d5w at low rate. Stopped aspart coverage. Otherwise, NPO until procedure. Discussed risks of not adhering to recommended food consistency. Patient and daughter verbalized understanding. He was also hypothermic overnight, likely from low sugars. C/o neuropathic pain. Has previously been on gabapentin at high doses in the past without good results and willing to try pregabalin. Problem List Medical Problems: (1) Anemia Status: Acute (2) COPD exacerbation Status: Acute (3) Hyperglycemia Status: Acute (4) Pneumonia Status: Acute (5) Subtherapeutic international normalized ratio (INR) Status: Acute Review of Systems All Other Systems: Reviewed and Negative Medications Acetaminophen (Tylenol Tab) 650 mg Q4H PRN PO Last administered on 09/11/16 12:26; Admin Dose 650 MG; Start 09/09/16 at 19:30; Stop 10/09/16 at 19:29 Albuterol/ Ipratropium (Duoneb) 3 ml Q2H PRN INH; Start 09/10/16 at 09:45; Stop 10/10/16 at 09:44 Albuterol/ Ipratropium (Duoneb) 3 ml TIDR INH Last administered on 09/12/16 07: 11; Admin Dose 3 ML; Start 09/10/16 at 15:00; Stop 10/10/16 at 14:59 Budesonide (Pulmicort Respules 0.5MG/ 2ML Neb Soln) 0.5 mg BIDR INH Last administered on 09/12/16 07:11; Admin Dose 0.5 MG; Start 09/09/16 at 20:00; Stop 10/09/16 at 19:59 Carvedilol (Coreg Tab) 12.5 mg BID PO Last administered on 09/11/16 21:03; Admin Dose 12.5 MG; Start 09/09/16 at 21:00; Stop 10/09/16 at 20:59 Cyanocobalamin (Vitamin B-12 Tab) 500 mcg DAILY PO Last administered on 07:47; Admin Dose 500 MCG; Start 09/10/16 at 09:00; Stop 10/10/16 at 08:59 Dextrose (D5W 1000ml) 1,000 ml @ 50 mls/hr Q20H IV Last administered on 08:33; Admin Dose 50 MLS/HR; Start 09/12/16 at 08:45; Stop 10/12/16 at 08: 44 Dextrose (Dextrose 50% 50ML Syringe) 50 ml UD PRN IV; Start 09/09/16 at 19:30; Stop 10/09/16 at 19:29 Furosemide 40 mg/ Syringe 4 ml @ 4 mls/min BID@0800,1400 IV Last administered on 09/12/16 11:13; Admin Dose 4 MLS/MIN; Start 09/11/16 at 14:00; Stop at 13:59 Glucagon 1 mg 1 mg UD PRN SQ; Start 09/09/16 at 19:30; Stop 10/09/16 at 19:29 Glucose (Glucose 40% Gel) UD PRN PO; Start 09/09/16 at 19:30; Stop 10/09/16 at 19:29 Glucose (Glucose Chew Tab) 1 tabs UD PRN PO; Start 09/09/16 at 19:30; Stop 06/15 at 19:29 Insulin Glargine (Lantus Solostar Pen) 15 unit HS SC; Start 09/12/16 at 21:00; Stop 10/12/16 at 20:59 Levothyroxine Sodium (Synthroid Tab) 25 mcg DAILYBB PO Last administered on 09/12 05:56; Admin Dose 25 MCG; Start 09/10/16 at 06:00; Stop 10/10/16 at 05:59 Magnesium Hydroxide (Milk Of Magnesia Susp) 30 ml HS PRN PO; Start 09/09/16 at 19:30; Stop 10/09/16 at 19:29 Nitroglycerin (Nitrostat Tab) 0.4 mg UD PRN SL; Start 09/09/16 at 19:30; Stop 10/09/16 at 19:29 Ondansetron HCl (Zofran Inj) 4 mg Q6H PRN IV; Start 09/09/16 at 19:30; Stop 06/15 at 19:29 Paroxetine HCl (pAXil TAB) 20 mg HS PO Last administered on 09/11/16 21:03; Admin Dose 20 MG; Start 09/09/16 at 21:00; Stop 10/09/16 at 20:59 Piperacillin Sod/ Tazobactam Sod (Consult) 1 ea UD PRN N/A; Start 09/09/16 at 20:15; Stop 10/09/16 at 20:14 Piperacillin Sod/ Tazobactam Sod/ Dextrose (Zosyn Iv/D5 100ml) 115 ml @ 28.75 mls/ hr Q8@0200,1000,1800 IV Last administered on 09/12/16 02:19; Admin Dose 28.75 MLS/HR; Start 09/10/16 at 02:00; Stop 09/16/16 at 23:59 Sodium Biphosphate/ Sodium Phosphate (Fleet Enema) 10 ml DAILY PRN MA; Start at 19:30; Stop 10/09/16 at 19:29 Sucralfate (Carafate Susp) 1 gm ACHS PO Last administered on 09/11/16 21:03; Admin Dose 1 GM; Start 09/09/16 at 21:00; Stop 10/09/16 at 20:59 Tamsulosin HCl (Flomax Cap) 0.4 mg HS PO Last administered on 09/11/16 21:03; Admin Dose 0.4 MG; Start 09/09/16 at 21:00; Stop 10/09/16 at 20:59 Warfarin Sodium 2 mg 2 mg DAILY@16 PO Last administered on 09/11/16 16:18; Admin Dose 2 MG; Start 09/11/16 at 16:00; Stop 10/11/16 at 15:59 Zolpidem Tartrate (Ambien Tab) 5 mg HSZ PRN PO; Start 09/09/16 at 19:30; Stop 10/09/16 at 19:29 Objective Vital Signs Date Time Temp Pulse Resp B/P Pulse Ox O2 Delivery O2 Flow Rate FiO2 09/12/16 09:48 36.3 09/12/16 08:00 Nasal Cannula 2.0 09/12/16 08:00 34.6 97 22 114/69 98 Room Air 2.0 09/12/16 07:11 85 18 92 Nasal Cannula 4.0 09/12/16 06:30 34.6 09/12/16 06:00 34.2 09/12/16 05:15 Nasal Cannula 1.0 09/12/16 05:05 35.0 09/12/16 03:51 88 20 120/74 93 Nasal Cannula 1.0 09/12/16 00:00 96 Nasal Cannula 1.0 09/11/16 23:33 36.4 86 20 108/67 99 Nasal Cannula 1.0 09/11/16 20:00 92 Nasal Cannula 2.0 09/11/16 19:31 36.5 85 18 135/72 95 Nasal Cannula 4.0 09/11/16 19:10 99 18 98 Nasal Cannula 4.0 09/11/16 16:44 129/74 09/11/16 16:00 Nasal Cannula 4.0 09/11/16 15:35 36.5 75 16 138/82 100 Nasal Cannula 4.0 09/11/16 15:27 84 20 128/80 96 4.0 09/11/16 14:40 80 18 100 Nasal Cannula 4.0 09/11/16 11:16 Nasal Cannula 4.0 09/11/16 10:33 36.5 87 16 113/76 97 4.0 Physical Exam Comments: nad, aox3 eomi, anicteric irreg irreg, no murmurs appreciated diminished left sided BS but improved from yesterday, rhonchi on right side, no wheezing b/l abd soft nt/nd +BS no LE edema cn 2-12 grossly intact Laboratory Results Last 24 Hours Test 09/11/16 11:02 09/11/16 14:46 09/11/16 16:18 09/11/16 20:17 Bedside Glucose 93 mg/dl 71 mg/dl 87 mg/dl Pleural Fluid Source LEFT LUNG Pleural Fluid Color STRAW Pleural Fluid Appearance HAZY Pleural Fluid WBC 220 /uL Pleural Fluid RBC < 3000 /uL Pleural Fluid Polynuclear WBCs % 28.5 % Pleural Fluid Mononuclear WBCs % 71.5 % Pleural Fluid Total Protein 1.6 g/dl Pleural Fluid LDH 81 IU Pleural Fluid Glucose 95 mg/dl Pleural Fluid Amylase 26 U/L Test 09/12/16 07:15 09/12/16 07:20 09/12/16 07:33 09/12/16 08:35 Prothrombin Time 20.1 SECONDS Prothromb Time International Ratio 1.8 Activated Partial Thromboplast Time 37.6 SECONDS Partial Thromboplastin Ratio 1.4 White Blood Count 6.02 K/uL Red Blood Count 3.65 M/uL Hemoglobin 9.0 g/dL Hematocrit 29.5 % Mean Corpuscular Volume 80.8 fL Mean Corpuscular Hemoglobin 24.7 pg Mean Corpuscular Hemoglobin Concent 30.5 g/dl Platelet Count 155 K/uL Mean Platelet Volume 9.4 fL Neutrophils (%) (Auto) 79.4 % Lymphocytes (%) (Auto) 11.1 % Monocytes (%) (Auto) 8.5 % Eosinophils (%) (Auto) 0.5 % Basophils (%) (Auto) 0.3 % Neutrophils # (Auto) 4.78 K/uL Lymphocytes # (Auto) 0.67 K/uL Monocytes # (Auto) 0.51 K/uL Eosinophils # (Auto) 0.03 K/uL Basophils # (Auto) 0.02 K/uL RDW Standard Deviation 48.6 fL RDW Coefficient of Variation 16.5 % Immature Granulocyte % (Auto) 0.2 % Immature Granulocyte # (Auto) 0.01 K/uL Sodium Level 140 mmol/L Potassium Level 3.5 mmol/L Chloride Level 98 mmol/L Carbon Dioxide Level 36 mmol/L Anion Gap 6.0 mmol/L Blood Urea Nitrogen 14 mg/dl Creatinine 0.45 mg/dl Est Creatinine Clear Calc Drug Dose 162.9 ml/min Estimated GFR () 131.0 Estimated GFR (Non- 113.1 BUN/Creatinine Ratio 30.4 Random Glucose 48 mg/dl Calcium Level 8.6 mg/dl Magnesium Level 2.0 mg/dl Total Bilirubin 0.3 mg/dl Direct Bilirubin 0.1 mg/dl Aspartate Amino Transf (AST/SGOT) 13 U/L Alanine Aminotransferase (ALT/SGPT) 15 U/L Alkaline Phosphatase 129 U/L Total Protein 5.8 gm/dl Albumin 2.3 gm/dl Bedside Glucose 56 mg/dl 97 mg/dl Assessment and Plan 1. Aspiration pneumonia - left-sided white out from aspirated food particle - will have bronchoscopy today by Dr. Beaver - discussed risks of no adhering to recommended food consistency - cont Zosyn for now 2. Afib - chronic - on coumadin at home - cont coreg - INR slightly below goal, will cont coumadin 2mg daily - goal of 2-3 3. Aspiration - aspirates thin liquids, should be thickened - for bronchoscopy 4. BPH - cont tamsulosin 5. Neuropathy - Will start on lyrica 50 BID and titrate gradually depending on tolerance 6. Hypoglycemia - hypoglycemic on admission and several episodes of hypoglycemia at [place] - will decrease glargine to 15 at night and hold off any other short-acting coverage scales and monitor blood sugars while inpatient 7. BL effusions - EF on last echo in Jul is low-normal at 55% - will increase lasix to 40mg IV BID for now and monitor i/o and daily weights
[2016-09-12] MEDS ORDERED: FENTANYL CITRATE INJ 50 MCG/1 ML 2 ML VIAL ONE ×2 (09:53→12:55)
--- NOTE | 2016-09-12 11:02 | Anesthesiology Progress Note ---
Anesthesia Progress Note Date of Service Sep 12, 2016. Progress Notes Patient had been given orange juice and jello at 0700am this morning;case will be delayed until 1300 today.
[2016-09-12] MEDS: FUROSEMIDE INJ 40 MG in SYRINGE 0 ML IV SCH ×2 (11:13→17:44)
[2016-09-12] MEDS ORDERED: PREGABALIN 50 MG CAP PO ONE ×2 (11:35→17:15)
[2016-09-12] MEDS ORDERED: LIDOCAINE HCL 2% 2 ML VIAL (20MG/ML) ONE (12:53)
[2016-09-12] MEDS ORDERED: ROCURONIUM BROMIDE 10 MG/ML 5 ML VIAL ONE (12:53)
[2016-09-12] MEDS ORDERED: PROPOFOL IV EMULSION 10 MG/ML 20 ML VIAL IV ONE (12:53)
[2016-09-12] MEDS ORDERED: SUCCINYLCHOLINE CHLORIDE 20 MG/ML 10 ML VIAL IV ONE (12:53)
--- NOTE | 2016-09-12 14:14 | Bronchoscopy Procedure Note ---
Bronchoscopy Procedure Note Procedure: Bronchoscopy, bronchoalveolar lavage of the right middle lobe Consent: Obtained to the patient placed in the chart Preoperative diagnosis: Aspiration causing left mainstem obstruction Postoperative diagnosis: Aspiration causing left mainstem obstruction Procedure: The Olympus video bronchoscope was used for this procedure. Scope was passed through the ET tube in the ET tube was notably 3 cm above the level of the rebecca. Initially there was diffuse mucus secretions obstructing into the ET tube as well as intermittently obstructing the trachea down to the level rebecca. These were suctioned free Lower 3 cm of the trachea/Rebecca: Anatomically within normal limits Right bronchial tree: Right mainstem bronchus: Multiple mucous plugs requiring suctioning. Right mainstem was completely cleared Right upper lobe: All subsegments of the right upper lobe were obstructive with mucous plugs and these were suctioned free. Otherwise anatomically within normal limits Bronchus intermedius: Partially obstructed with mucous plugs but all were suctioned free. Anatomically within normal limits Right middle lobe: Minimal because plugging easily cleared. Anatomically within normal limits Right lower lobe: Multiple mucous plugs obstructing the posterior subsegment lateral subsegment the right lower lobe suctioned free. Anatomically within normal limits Left bronchial tree: Left mainstem: Complete obstruction approximately 5 mm below the takeoff of the rebecca all the way to the secondary rebecca all mucous plugs removed. Anatomically within normal limits Left upper lobe: Complete obstruction with mucous plugs all suctioned free to the fourth generation bronchi. Anatomically within normal limits Lingula: Completely obstructed with mucous plugging, I'll plugs suctioned free to the level of the takeoff of the LB4 and LB5. Anatomically within normal limits Left lower lobe: Complete obstruction with mucous plugs, I'll plugs removed to the fourth generation bronchi. There was some anthracotic changes appreciated in the medial bronchus of the basal pyramid (LB9) Other than the medial aspect of the basal pyramids left lower lobe was anatomically within normal limits Bronchial alveolar lavage: Lingula: Approximately 60 cc aliquot was used for normal saline and 30 cc returned and sent off for testing.
[2016-09-12] MEDS ORDERED: EpHEDrine SULFATE INJ 50 MG/ML AMP IV PRN (14:15)
[2016-09-12] MEDS ORDERED: ATROPINE SULFATE 0.1 MG/ML 5ML SYR IV PRN (14:15)
[2016-09-12] MEDS ORDERED: FENTANYL CITRATE INJ 50 MCG/1 ML 2 ML VIAL IV PRN (14:15)
[2016-09-12] MEDS ORDERED: ONDANSETRON INJ 2 MG/ML 2 ML VIAL IV PRN (14:15)
--- NOTE | 2016-09-12 14:54 | Anesthesiology Progress Note ---
Anesthesia Post Op Note Date & Time Sep 12, 2016 at 14:53 Vital Signs Pain Intensity: 0 Vital Signs Past 12 Hours Date Time Temp Pulse Resp B/P Pulse Ox O2 Delivery O2 Flow Rate FiO2 09/12/16 14:45 36.4 89 18 111/63 99 BiPAP 50 09/12/16 14:35 81 20 118/81 99 BiPAP 50 09/12/16 14:25 94 20 108/71 99 BiPAP 50 09/12/16 14:15 91 20 110/61 96 BiPAP 50 09/12/16 14:12 97 97 50 09/12/16 14:09 36.3 86 20 109/76 95 BiPAP 50 09/12/16 12:34 97 Nasal Cannula 2.0 09/12/16 12:33 36.3 86 20 121/76 97 Nasal Cannula 2.0 09/12/16 11:27 Nasal Cannula 2.0 09/12/16 10:51 36.3 09/12/16 09:48 36.3 09/12/16 08:00 Nasal Cannula 2.0 09/12/16 08:00 34.6 97 22 114/69 98 Room Air 2.0 09/12/16 07:11 85 18 92 Nasal Cannula 4.0 09/12/16 06:30 34.6 09/12/16 06:00 34.2 09/12/16 05:15 Nasal Cannula 1.0 09/12/16 05:05 35.0 09/12/16 03:51 88 20 120/74 93 Nasal Cannula 1.0 Notes Mental Status: alert / awake / arousable, participated in evaluation Pt Amnestic to Procedure: Yes Nausea / Vomiting: adequately controlled Pain: adequately controlled Airway Patency, RR, SpO2: stable & adequate BP & HR: stable & adequate Hydration State: stable & adequate Anesthetic Complications: no major complications apparent Mr. Carranza is doing very well in recovery. He sounds better on auscultation and his SpO2 is 99-100% on biPAP (per baggage inspector). Plan to have biPAP overnight. Blood glucose in recovery was 55 and patient was given 1/2 amp D50. On recheck, blood sugar was 123. VSS. No complications. All questions answered.
[2016-09-12] MEDS: CARVEDILOL 12.5 MG TAB PO SCH ×2 (16:05→19:56)
[2016-09-12] MEDS: WARFARIN SOD 2 MG TAB PO SCH (16:55)
[2016-09-12] MEDS: TAMSULOSIN HCL 0.4 MG CAP PO SCH (19:55)
[2016-09-12] MEDS: PAROXETINE 20 MG TAB PO SCH (19:55)
[2016-09-12] MEDS: ZOLPIDEM TARTRATE 5 MG TAB PO PRN (19:56)
[2016-09-12] MEDS: PREGABALIN 50 MG CAP PO SCH (20:37)
[2016-09-12] MEDS ORDERED: INSULIN GLARGINE SOLOSTAR 100 UNITS/ML 3 ML PEN SC SCH (21:00)
[2016-09-13] VITALS (9 sets, daily range): BP systolic 109–135; BP diastolic 61–79; PULSE 58–108; TEMP 36.5–36.8; O2SAT 91–99
[2016-09-13] MEDS: PIPERACILL/TAZOBAC IV 3.375 GM in DEXTROSE 5% 100ML 100 ML IV SCH ×3 (01:39→17:57)
[2016-09-13] MEDS: DEXTROSE 5% 1000ML 1,000 ML IV SCH (04:24)
[2016-09-13] MEDS: LEVOTHYROXINE 25 MCG TAB PO SCH (05:16)
[2016-09-13 05:39] LABS: BASO % 0.2 %; BASO ABS # 0.01 K/uL (0-0.2); EOS % 2.1 %; HEMATOCRIT 27.2 % (42-52); IG% 0.2 %; LYMPH % 17.8 %; MEAN CELL VOLUME 80.5 fL (80-100); MEAN CORPUSCULAR HEMOGLOBIN 24.6 pg (25-34); MEAN CORPUSCULAR HGB CONC 30.5 g/dl (32-36); MEAN PLATELET VOLUME 8.9 fL (7.4-10.4); MONO % 10.9 %; NEUT % 68.8 %; PLATELET COUNT 135 K/uL (130-400); RED BLOOD COUNT 3.38 M/uL (4.7-6.1); WHITE BLOOD COUNT 5.62 K/uL (4.8-10.8)
[2016-09-13 06:21] LABS: BUN/CREATININE RATIO 22.4 (10-20); CREATININE 0.7 mg/dl (0.60-1.40); POTASSIUM 3.7 mmol/L (3.5-5.1)
[2016-09-13 06:24] LABS: ALB/GLOB RATIO 0.6 (0.9-2)
[2016-09-13] MEDS: ALBUT/IPRATROP 3MG/0.5MG NEB 3 ML VIAL INH SCH ×3 (07:05→18:59)
[2016-09-13] MEDS: BUDESONIDE 0.5 MG/2 ML VIAL (PULMICORT) INH SCH ×2 (07:05→18:59)
[2016-09-13 07:08] LABS: COMPLETE YES; GIANT PLATELETS 1+
[2016-09-13 08:31] LABS: INR 2.6 (0.9-1.1); PROTHROMBIN TIME (PATIENT) 28.9 SECONDS (9.0-12.0)
[2016-09-13] MEDS: CARVEDILOL 12.5 MG TAB PO SCH ×2 (08:44→20:32)
[2016-09-13] MEDS: CYANOCOBALAMIN 500 MCG TAB (VIT B-12) PO SCH (08:44)
[2016-09-13] MEDS: SUCRALFATE 1 GM/10 ML UDC PO SCH ×4 (08:45→20:32)
[2016-09-13] MEDS: FUROSEMIDE INJ 40 MG in SYRINGE 0 ML IV SCH ×2 (08:45→13:49)
[2016-09-13] MEDS: PREGABALIN 50 MG CAP PO SCH ×2 (08:47→20:32)
--- NOTE | 2016-09-13 13:57 | DIAGNOSTIC IMAGING REPORT ---
CHEST CT WITHOUT CONTRAST CT DOSE: 571.29 mGy.cm HISTORY: Short of breath. Left lung collapse. mucous plug TECHNIQUE: Multiaxial CT images of the chest were performed without contrast. COMPARISON: Chest CT 09/11/2016. FINDINGS: There is again noted a mucous plug within the distal left main stem bronchus and extending into the lobar branches. This is slightly decreased in size. There is progression within the majority of the left lower lobe. There is persistent complete atelectasis of the left lower lobe. No pneumothorax. Groundglass densities within the left upper lobe may represent resolving atelectasis. Partial compressive atelectasis of the right lower lobe due to the small pleural effusion. A small left pleural effusion persists. Healing/healed left-sided rib fractures. Anterior cervical fusion hardware is again noted. Mild mediastinal lymphadenopathy persists. Normal caliber thoracic ureter. Dilated main pulmonary artery and cardiomegaly are again noted. Left-sided nephrolithiasis. There is a punctate gallstone. A left PICC terminates in the distal SVC. A few tiny nodular densities within the right upper lobe posteriorly persist. IMPRESSION: 1. Slight decrease in size in the left mainstem bronchus mucous plug with improved aeration within the majority of the left upper lobe. There is persistent complete collapse of the left lower lobe. Bronchoscopy should be performed for clearing of the mucous plug. 2. Small bilateral pleural effusions persist. 3. Additional findings as described above are not significant changed. Electronically signed by: Rico Garcia M.D. 09/13/2016 1:56 PM Dictated Date/Time: 09/13/2016 1:46 PM
--- NOTE | 2016-09-13 15:06 | DIAGNOSTIC IMAGING REPORT ---
MODIFIED BARIUM SWALLOW CLINICAL HISTORY: Aspiration pneumonia. COMPARISON STUDY: MODIFIED BARIUM SWALLOW AUGUST 16, 2016. FLUOROSCOPY TIME: 2.4 minutes. FINDINGS: No aspiration was identified with thin liquids, nectar thick liquids, pudding or crackers with paste. There was penetration with thin liquids. Premature spillage was noted. IMPRESSION: 1. No aspiration identified. 2. Full recommendations by speech pathology to follow. Electronically signed by: Moody Stewart M.D. 09/13/2016 3:05 PM Dictated Date/Time: 09/13/2016 3:03 PM
[2016-09-13] MEDS: WARFARIN SOD 2 MG TAB PO SCH (15:31)
--- NOTE | 2016-09-13 15:55 | Progress Note ---
Subjective Date of Service: Sep 13, 2016. Subjective Pt evaluation today including: conversation w/ patient, physical exam, lab review, review of studies, conversation w/ building consultant, review of inpatient medication list Patient feeling better and breathing is much improved according to his report. He is tolerating current diet well. No SOB or chest pain. no abd complaints. Problem List Medical Problems: (1) Anemia Status: Acute (2) COPD exacerbation Status: Acute (3) Hyperglycemia Status: Acute (4) Pneumonia Status: Acute (5) Subtherapeutic international normalized ratio (INR) Status: Acute Review of Systems All Other Systems: Reviewed and Negative Medications Acetaminophen (Tylenol Tab) 650 mg Q4H PRN PO Last administered on 09/11/16 12:26; Admin Dose 650 MG; Start 09/09/16 at 19:30; Stop 10/09/16 at 19:29 Albuterol/ Ipratropium (Duoneb) 3 ml Q2H PRN INH; Start 09/10/16 at 09:45; Stop 10/10/16 at 09:44 Albuterol/ Ipratropium (Duoneb) 3 ml TIDR INH Last administered on 09/13/16 14: 05; Admin Dose 3 ML; Start 09/10/16 at 15:00; Stop 10/10/16 at 14:59 Budesonide (Pulmicort Respules 0.5MG/ 2ML Neb Soln) 0.5 mg BIDR INH Last administered on 09/13/16 07:05; Admin Dose 0.5 MG; Start 09/09/16 at 20:00; Stop 10/09/16 at 19:59 Carvedilol (Coreg Tab) 12.5 mg BID PO Last administered on 09/13/16 08:44; Admin Dose 12.5 MG; Start 09/09/16 at 21:00; Stop 10/09/16 at 20:59 Cyanocobalamin (Vitamin B-12 Tab) 500 mcg DAILY PO Last administered on 08:44; Admin Dose 500 MCG; Start 09/10/16 at 09:00; Stop 10/10/16 at 08:59 Dextrose (Dextrose 50% 50ML Syringe) 50 ml UD PRN IV Last administered on 14:38; Admin Dose 50 ML; Start 09/09/16 at 19:30; Stop 10/09/16 at 19:29 Furosemide/Syringe (Lasix Inj/ Syringe) 4 ml @ 4 mls/min BID@0800,1400 IV Last administered on 09/13/16 13:49; Admin Dose 4 MLS/MIN; Start 09/11/16 at 14:00; Stop 10/11/16 at 13:59 Glucagon 1 mg 1 mg UD PRN SQ; Start 09/09/16 at 19:30; Stop 10/09/16 at 19:29 Glucose (Glucose 40% Gel) UD PRN PO Last administered on 09/12/16 12:16; Admin Dose 15 GM; Start 09/09/16 at 19:30; Stop 10/09/16 at 19:29 Glucose (Glucose Chew Tab) 1 tabs UD PRN PO; Start 09/09/16 at 19:30; Stop 06/15 at 19:29 Insulin Glargine (Lantus Solostar Pen) 15 unit HS SC Last administered on 20:39; Admin Dose 15 UNIT; Start 09/12/16 at 21:00; Stop 10/12/16 at 20:59 Levothyroxine Sodium (Synthroid Tab) 25 mcg DAILYBB PO Last administered on 09/13 05:16; Admin Dose 25 MCG; Start 09/10/16 at 06:00; Stop 10/10/16 at 05:59 Magnesium Hydroxide (Milk Of Magnesia Susp) 30 ml HS PRN PO; Start 09/09/16 at 19:30; Stop 10/09/16 at 19:29 Nitroglycerin (Nitrostat Tab) 0.4 mg UD PRN SL; Start 09/09/16 at 19:30; Stop 10/09/16 at 19:29 Ondansetron HCl (Zofran Inj) 4 mg Q6H PRN IV; Start 09/09/16 at 19:30; Stop 06/15 at 19:29 Paroxetine HCl (pAXil TAB) 20 mg HS PO Last administered on 09/12/16 19:55; Admin Dose 20 MG; Start 09/09/16 at 21:00; Stop 10/09/16 at 20:59 Piperacillin Sod/ Tazobactam Sod (Consult) 1 ea UD PRN N/A; Start 09/09/16 at 20:15; Stop 10/09/16 at 20:14 Piperacillin Sod/ Tazobactam Sod/ Dextrose (Zosyn Iv/D5 100ml) 115 ml @ 28.75 mls/ hr Q8@0200,1000,1800 IV Last administered on 09/13/16 10:32; Admin Dose 28.75 MLS/HR; Start 09/10/16 at 02:00; Stop 09/16/16 at 23:59 Pregabalin (Lyrica Cap) 50 mg BID PO Last administered on 09/13/16 08:47; Admin Dose 50 MG; Start 09/12/16 at 21:00; Stop 10/12/16 at 20:59 Sodium Biphosphate/ Sodium Phosphate (Fleet Enema) 10 ml DAILY PRN [place]; Start at 19:30; Stop 10/09/16 at 19:29 Sucralfate (Carafate Susp) 1 gm ACHS PO Last administered on 09/13/16 15:31; Admin Dose 1 GM; Start 09/09/16 at 21:00; Stop 10/09/16 at 20:59 Tamsulosin HCl (Flomax Cap) 0.4 mg HS PO Last administered on 09/12/16 19:55; Admin Dose 0.4 MG; Start 09/09/16 at 21:00; Stop 10/09/16 at 20:59 Warfarin Sodium 2 mg 2 mg DAILY@16 PO Last administered on 09/13/16 15:31; Admin Dose 2 MG; Start 09/11/16 at 16:00; Stop 10/11/16 at 15:59 Zolpidem Tartrate (Ambien Tab) 5 mg HSZ PRN PO Last administered on 09/12/16 19:56; Admin Dose 5 MG; Start 09/09/16 at 19:30; Stop 10/09/16 at 19:29 Objective Vital Signs Date Time Temp Pulse Resp B/P Pulse Ox O2 Delivery O2 Flow Rate FiO2 09/13/16 15:41 36.6 97 20 135/79 96 Nasal Cannula 2.0 09/13/16 14:10 58 18 95 Nasal Cannula 2.0 09/13/16 12:15 Nasal Cannula 2.0 09/13/16 11:03 36.8 79 18 124/69 96 09/13/16 08:30 Nasal Cannula 2.0 09/13/16 07:52 36.7 76 18 132/69 93 09/13/16 07:05 89 18 93 Room Air 09/13/16 04:25 36.5 96 18 119/74 99 Nasal Cannula 2.0 09/13/16 04:00 Nasal Cannula 2.0 09/13/16 00:00 BiPAP 50 09/12/16 23:35 36.6 87 18 128/74 94 BiPAP 09/12/16 21:36 92 96 50 09/12/16 20:00 Nasal Cannula 2.0 09/12/16 19:32 36.8 79 18 119/64 98 09/12/16 19:26 82 18 93 Nasal Cannula 2.0 09/12/16 17:20 36.3 74 18 118/61 98 BiPAP 09/12/16 16:00 BiPAP 50 Physical Exam Comments: nad aox3 eomi, perrl anicteric irreg irreg no murmurs appreciated decreased breath sounds on the left side, good air exchange in the right side abd soft nt/nd +BS no LE edema Laboratory Results Last 24 Hours Test 09/12/16 16:22 09/12/16 20:28 09/13/16 05:15 09/13/16 06:54 Bedside Glucose 83 mg/dl 237 mg/dl 213 mg/dl White Blood Count 5.62 K/uL Red Blood Count 3.38 M/uL Hemoglobin 8.3 g/dL Hematocrit 27.2 % Mean Corpuscular Volume 80.5 fL Mean Corpuscular Hemoglobin 24.6 pg Mean Corpuscular Hemoglobin Concent 30.5 g/dl Platelet Count 135 K/uL Mean Platelet Volume 8.9 fL Neutrophils (%) (Auto) 68.8 % Lymphocytes (%) (Auto) 17.8 % Monocytes (%) (Auto) 10.9 % Eosinophils (%) (Auto) 2.1 % Basophils (%) (Auto) 0.2 % Neutrophils # (Auto) 3.87 K/uL Lymphocytes # (Auto) 1.00 K/uL Monocytes # (Auto) 0.61 K/uL Eosinophils # (Auto) 0.12 K/uL Basophils # (Auto) 0.01 K/uL RDW Standard Deviation 49.9 fL RDW Coefficient of Variation 16.7 % Immature Granulocyte % (Auto) 0.2 % Immature Granulocyte # (Auto) 0.01 K/uL Giant Platelets 1+ Sodium Level 135 mmol/L Potassium Level 3.7 mmol/L Chloride Level 94 mmol/L Carbon Dioxide Level 38 mmol/L Anion Gap 3.0 mmol/L Blood Urea Nitrogen 16 mg/dl Creatinine 0.70 mg/dl Est Creatinine Clear Calc Drug Dose 104.7 ml/min Estimated GFR () 109.3 Estimated GFR (Non- 94.3 BUN/Creatinine Ratio 22.4 Random Glucose 206 mg/dl Calcium Level 8.0 mg/dl Magnesium Level 2.0 mg/dl Total Bilirubin 0.3 mg/dl Aspartate Amino Transf (AST/SGOT) 9 U/L Alanine Aminotransferase (ALT/SGPT) 11 U/L Alkaline Phosphatase 123 U/L Total Protein 5.6 gm/dl Albumin 2.2 gm/dl Globulin 3.4 gm/dl Albumin/Globulin Ratio 0.6 Test 09/13/16 08:15 09/13/16 10:50 Prothrombin Time 28.9 SECONDS Prothromb Time International Ratio 2.6 Bedside Glucose 247 mg/dl CHEST CT WITHOUT CONTRAST CT DOSE: 571.29 mGy.cm HISTORY: Short of breath. Left lung collapse. mucous plug TECHNIQUE: Multiaxial CT images of the chest were performed without contrast. COMPARISON: Chest CT 09/11/2016. FINDINGS: There is again noted a mucous plug within the distal left main stem bronchus and extending into the lobar branches. This is slightly decreased in size. There is progression within the majority of the left lower lobe. There is persistent complete atelectasis of the left lower lobe. No pneumothorax. Groundglass densities within the left upper lobe may represent resolving atelectasis. Partial compressive atelectasis of the right lower lobe due to the small pleural effusion. A small left pleural effusion persists. Healing/healed left-sided rib fractures. Anterior cervical fusion hardware is again noted. Mild mediastinal lymphadenopathy persists. Normal caliber thoracic ureter. Dilated main pulmonary artery and cardiomegaly are again noted. Left-sided nephrolithiasis. There is a punctate gallstone. A left PICC terminates in the distal SVC. A few tiny nodular densities within the right upper lobe posteriorly persist. IMPRESSION: 1. Slight decrease in size in the left mainstem bronchus mucous plug with improved aeration within the majority of the left upper lobe. There is persistent complete collapse of the left lower lobe. Bronchoscopy should be performed for clearing of the mucous plug. 2. Small bilateral pleural effusions persist. 3. Additional findings as described above are not significant changed. MODIFIED BARIUM SWALLOW CLINICAL HISTORY: Aspiration pneumonia. COMPARISON STUDY: MODIFIED BARIUM SWALLOW AUGUST 16, 2016. FLUOROSCOPY TIME: 2.4 minutes. FINDINGS: No aspiration was identified with thin liquids, nectar thick liquids, pudding or crackers with paste. There was penetration with thin liquids. Premature spillage was noted. IMPRESSION: 1. No aspiration identified. 2. Full recommendations by speech pathology to follow. Assessment and Plan 1. Aspiration pneumonia - s/p bronchoscopy - repeat CT as above - will await further recommendations from pulmonary - respiratory status is improved 2. Afib - chronic - on coumadin at home - cont coreg - will cont coumadin 2mg daily - goal of 2-3 3. Aspiration - repeat MBS without any aspiration of thin liquids - proper aspiration precautions to be maintained - will f/u with speech re: further recommendations 4. BPH - cont tamsulosin 5. Neuropathy - Will start on lyrica 50 BID, tolerated well 6. Hypoglycemia - hypoglycemic on admission and several episodes of hypoglycemia at [place] - will increase glargine back up to 20 and monitor 7. BL effusions - EF on last echo in Jul is low-normal at 55% - will increase lasix to 40mg IV BID for now and monitor i/o and daily weights
--- NOTE | 2016-09-13 18:22 | PROGRESS NOTE ---
DATE: 09/13/2016 PROBLEM LIST: Includes 1. Mucoid impaction: 2. COPD exacerbation. 3. Pneumonia. SUBJECTIVE: The patient underwent bronchoscopic evaluation with bronchoalveolar lavage yesterday by Dr. Beaver which after reviewing the procedure note virtually all lobar segments were occluded with thick mucus or mucoid impaction. The patient is feeling much better today. He states that he can move air better, he can breathe better, he is not having as much cough. He states that his cough is loose, he is able to cough easier and he will get some mucus up when he does cough. He is not having any chest heaviness or tightness. He feels less short of breath. He is not having any fever or chills. No other symptoms. No abdominal pain, no change in his bowels. No difficulty voiding. No swelling in his extremities. OBJECTIVE: GENERAL: The patient is a 71-year-old male sitting in bed in no acute distress. He is alert and oriented x3. Mood is good. Affect is good. VITAL SIGNS: Temp 36.6, pulse 97, respirations 20, blood pressure is 135/79, pulse ox 96% on 2 liters. HEENT: Normocephalic, atraumatic. Pupils equal, round and reactive to light and accommodation. Extraocular movements are intact. [place] moist gingival and buccal mucosa. NECK: Supple. No mass. No adenopathy. No bruit. CHEST: Diminished with some few coarse wheezes throughout. No rale or rhonchi. He has fairly good air movement throughout all lobes. CARDIOVASCULAR: Irregularly regular with no murmurs, gallops or rubs appreciated. ABDOMEN: Soft, nontender. No guarding, rigidity. Bowel sounds are present. EXTREMITIES: No erythema or edema. NEUROLOGIC: Cranial nerves II through XII are intact. No focal deficit. LABORATORY DATA: Shows a white count of 5000, H\T\H of 8.3 and 27.2, platelet count of 135,000. The bronch washings are pending. No new radiologic data. IMPRESSION: This is a 71-year-old male with chronic obstructive pulmonary disease, significant mucoid impaction and is doing much better following recent bronchoscopic evaluation. At this point, would recommend the patient continue on current treatment, would potentially be able to start to taper his steroids down starting tomorrow. Otherwise, he is to continue course of treatment as it is. We will continue to follow through hospitalization. Patient seen and examined and plan agreed upon MTDD
[2016-09-13] MEDS: ZOLPIDEM TARTRATE 5 MG TAB PO PRN (20:32)
[2016-09-13] MEDS: TAMSULOSIN HCL 0.4 MG CAP PO SCH (20:32)
[2016-09-13] MEDS: PAROXETINE 20 MG TAB PO SCH (20:32)
[2016-09-13] MEDS: INSULIN GLARGINE SOLOSTAR 100 UNITS/ML 3 ML PEN SC SCH (20:38)
[2016-09-14] VITALS (10 sets, daily range): BP systolic 101–154; BP diastolic 60–89; PULSE 69–105; TEMP 36.4–36.6; O2SAT 93–98
[2016-09-14] MEDS: PIPERACILL/TAZOBAC IV 3.375 GM in DEXTROSE 5% 100ML 100 ML IV SCH ×3 (01:53→17:27)
[2016-09-14] MEDS: LEVOTHYROXINE 25 MCG TAB PO SCH (05:12)
[2016-09-14 06:11] LABS: BUN/CREATININE RATIO 23.8 (10-20); CALCIUM 7.9 mg/dl (8.5-10.1); CREATININE 0.64 mg/dl (0.60-1.40); POTASSIUM 3.5 mmol/L (3.5-5.1)
[2016-09-14] MEDS: BUDESONIDE 0.5 MG/2 ML VIAL (PULMICORT) INH SCH ×2 (07:04→19:11)
[2016-09-14] MEDS: ALBUT/IPRATROP 3MG/0.5MG NEB 3 ML VIAL INH SCH ×3 (07:04→19:11)
[2016-09-14] MEDS: SUCRALFATE 1 GM/10 ML UDC PO SCH ×4 (07:33→20:25)
[2016-09-14] MEDS: CARVEDILOL 12.5 MG TAB PO SCH ×2 (07:41→20:25)
[2016-09-14] MEDS: FUROSEMIDE 80 MG TAB PO SCH ×2 (07:41→13:32)
[2016-09-14] MEDS: CYANOCOBALAMIN 500 MCG TAB (VIT B-12) PO SCH (07:41)
[2016-09-14] MEDS: PREGABALIN 50 MG CAP PO SCH ×2 (07:46→20:29)
[2016-09-14] MEDS: WARFARIN SOD 2 MG TAB PO SCH (16:11)
[2016-09-14] MEDS: INSULIN ASPART 100 UNITS/ML 3 ML PEN SC SCH ×2 (16:13→20:35)
--- NOTE | 2016-09-14 16:20 | Progress Note ---
Subjective Date of Service: Sep 14, 2016. Subjective Pt evaluation today including: conversation w/ patient, physical exam, lab review, review of studies, conversation w/ senior professional services consultant, review of inpatient medication list Patient respiratory status is stable. Breathing well. No chest pain, no abd pain. No new complaints. Problem List Medical Problems: (1) Anemia Status: Acute (2) COPD exacerbation Status: Acute (3) Hyperglycemia Status: Acute (4) Pneumonia Status: Acute (5) Subtherapeutic international normalized ratio (INR) Status: Acute Review of Systems All Other Systems: Reviewed and Negative Medications Acetaminophen (Tylenol Tab) 650 mg Q4H PRN PO Last administered on 09/11/16 12:26; Admin Dose 650 MG; Start 09/09/16 at 19:30; Stop 10/09/16 at 19:29 Albuterol/ Ipratropium (Duoneb) 3 ml Q2H PRN INH; Start 09/10/16 at 09:45; Stop 10/10/16 at 09:44 Albuterol/ Ipratropium (Duoneb) 3 ml TIDR INH Last administered on 09/14/16 14: 18; Admin Dose 3 ML; Start 09/10/16 at 15:00; Stop 10/10/16 at 14:59 Budesonide (Pulmicort Respules 0.5MG/ 2ML Neb Soln) 0.5 mg BIDR INH Last administered on 09/14/16 07:04; Admin Dose 0.5 MG; Start 09/09/16 at 20:00; Stop 10/09/16 at 19:59 Carvedilol (Coreg Tab) 12.5 mg BID PO Last administered on 09/14/16 07:41; Admin Dose 12.5 MG; Start 09/09/16 at 21:00; Stop 10/09/16 at 20:59 Cyanocobalamin (Vitamin B-12 Tab) 500 mcg DAILY PO Last administered on 07:41; Admin Dose 500 MCG; Start 09/10/16 at 09:00; Stop 10/10/16 at 08:59 Dextrose (Dextrose 50% 50ML Syringe) 50 ml UD PRN IV Last administered on 14:38; Admin Dose 50 ML; Start 09/09/16 at 19:30; Stop 10/09/16 at 19:29 Furosemide (Lasix Tab) 80 mg BID@0800,1400 PO Last administered on 09/14/16 13: 32; Admin Dose 80 MG; Start 09/14/16 at 08:00; Stop 10/14/16 at 07:59 Glucagon 1 mg 1 mg UD PRN SQ; Start 09/09/16 at 19:30; Stop 10/09/16 at 19:29 Glucose (Glucose 40% Gel) UD PRN PO Last administered on 09/12/16 12:16; Admin Dose 15 GM; Start 09/09/16 at 19:30; Stop 10/09/16 at 19:29 Glucose (Glucose Chew Tab) 1 tabs UD PRN PO; Start 09/09/16 at 19:30; Stop 06/15 at 19:29 Heparin Sodium (Porcine) (Heparin 10 Unit/ ml 5 ml Flush) 5 ml PRN PRN FLUSH; Start 09/13/16 at 23:45; Stop 10/13/16 at 23:44 Insulin Aspart (novoLOG ASPART) SLIDING SCALE G... ACHS SC Last administered on 09/14/16 16:13; Admin Dose 1 UNITS; Start 09/14/16 at 16:15; Stop 10/14/16 at 16:14 Insulin Glargine (Lantus Solostar Pen) 20 unit HS SC Last administered on 20:38; Admin Dose 20 UNIT; Start 09/13/16 at 21:00; Stop 10/13/16 at 20:59 Levothyroxine Sodium (Synthroid Tab) 25 mcg DAILYBB PO Last administered on 09/14 05:12; Admin Dose 25 MCG; Start 09/10/16 at 06:00; Stop 10/10/16 at 05:59 Magnesium Hydroxide (Milk Of Magnesia Susp) 30 ml HS PRN PO; Start 09/09/16 at 19:30; Stop 10/09/16 at 19:29 Nitroglycerin (Nitrostat Tab) 0.4 mg UD PRN SL; Start 09/09/16 at 19:30; Stop 10/09/16 at 19:29 Ondansetron HCl (Zofran Inj) 4 mg Q6H PRN IV; Start 09/09/16 at 19:30; Stop 06/15 at 19:29 Paroxetine HCl (pAXil TAB) 20 mg HS PO Last administered on 09/13/16 20:32; Admin Dose 20 MG; Start 09/09/16 at 21:00; Stop 10/09/16 at 20:59 Piperacillin Sod/ Tazobactam Sod (Consult) 1 ea UD PRN N/A; Start 09/09/16 at 20:15; Stop 10/09/16 at 20:14 Piperacillin Sod/ Tazobactam Sod/ Dextrose (Zosyn Iv/D5 100ml) 115 ml @ 28.75 mls/ hr Q8@0200,1000,1800 IV Last administered on 09/14/16 10:04; Admin Dose 28.75 MLS/HR; Start 09/10/16 at 02:00; Stop 09/16/16 at 23:59 Pregabalin (Lyrica Cap) 50 mg BID PO Last administered on 09/14/16 07:46; Admin Dose 50 MG; Start 09/12/16 at 21:00; Stop 10/12/16 at 20:59 Sodium Biphosphate/ Sodium Phosphate (Fleet Enema) 10 ml DAILY PRN [place]; Start at 19:30; Stop 10/09/16 at 19:29 Sucralfate (Carafate Susp) 1 gm ACHS PO Last administered on 09/14/16 16:11; Admin Dose 1 GM; Start 09/09/16 at 21:00; Stop 10/09/16 at 20:59 Tamsulosin HCl (Flomax Cap) 0.4 mg HS PO Last administered on 09/13/16 20:32; Admin Dose 0.4 MG; Start 09/09/16 at 21:00; Stop 10/09/16 at 20:59 Warfarin Sodium (Coumadin Tab) 2 mg DAILY@16 PO Last administered on 09/14/16 16:11; Admin Dose 2 MG; Start 09/11/16 at 16:00; Stop 10/11/16 at 15:59 Zolpidem Tartrate (Ambien Tab) 5 mg HSZ PRN PO Last administered on 09/13/16 20:32; Admin Dose 5 MG; Start 09/09/16 at 19:30; Stop 10/09/16 at 19:29 Objective Vital Signs Date Time Temp Pulse Resp B/P Pulse Ox O2 Delivery O2 Flow Rate FiO2 09/14/16 15:10 36.4 86 18 124/76 98 Nasal Cannula 2.0 09/14/16 14:18 88 18 98 Room Air 09/14/16 12:00 Nasal Cannula 2.0 09/14/16 11:14 36.4 102 16 154/89 97 Nasal Cannula 2.0 09/14/16 08:00 36.5 69 18 101/60 94 Nasal Cannula 2.0 09/14/16 08:00 Nasal Cannula 2.0 09/14/16 07:05 78 18 93 Room Air 09/14/16 04:00 94 Nasal Cannula 2.0 09/14/16 03:36 36.5 103 19 126/84 94 Nasal Cannula 2.0 09/13/16 23:59 Nasal Cannula 2.0 09/13/16 23:53 36.6 108 19 112/70 93 Nasal Cannula 2.0 09/13/16 20:00 Nasal Cannula 2.0 09/13/16 19:18 36.5 104 20 109/70 91 Nasal Cannula 2.0 09/13/16 18:59 85 16 95 Nasal Cannula 2.0 Physical Exam Comments: nad, aox3 eomi, perrl, anicteric irreg irreg, no murmurs appreciated decreased breath sounds in the left lower lung area, good air exchange in the right side with basilar rales, no wheezing abd soft nt/nd +BS no LE edema [place] in place Laboratory Results Last 24 Hours Test 09/13/16 16:32 09/13/16 19:53 09/14/16 05:10 09/14/16 06:35 Bedside Glucose 285 mg/dl 292 mg/dl 190 mg/dl Sodium Level 138 mmol/L Potassium Level 3.5 mmol/L Chloride Level 97 mmol/L Carbon Dioxide Level 38 mmol/L Anion Gap 3.0 mmol/L Blood Urea Nitrogen 15 mg/dl Creatinine 0.64 mg/dl Est Creatinine Clear Calc Drug Dose 114.5 ml/min Estimated GFR () 113.4 Estimated GFR (Non- 97.8 BUN/Creatinine Ratio 23.8 Random Glucose 172 mg/dl Calcium Level 7.9 mg/dl Test 09/14/16 10:36 Bedside Glucose 272 mg/dl Assessment and Plan 1. Aspiration pneumonia - s/p bronchoscopy - discussed with pulm - may need repeat bronchoscopy on Friday - will cont zosyn - optimize volume status 2. Afib - chronic - on coumadin at home - cont coreg - will cont coumadin 2mg daily - goal of 2-3 3. Aspiration - repeat MBS without any aspiration of thin liquids - proper aspiration precautions to be maintained - cont zosyn 4. BPH - cont tamsulosin 5. Neuropathy - Will cont on lyrica 50 BID, tolerated well 6. Hypoglycemia - hypoglycemic on admission and several episodes of hypoglycemia at [place] - hyperglycemic now with glargine back up to 20, will restart sliding scale 7. BL effusions - EF on last echo in Jul is low-normal at 55% - on lasix 80 mg po bid and monitor i/o and daily weights
[2016-09-14] MEDS: ACETAMINOPHEN 325 MG TAB PO PRN (20:24)
[2016-09-14] MEDS: PAROXETINE 20 MG TAB PO SCH (20:25)
[2016-09-14] MEDS: TAMSULOSIN HCL 0.4 MG CAP PO SCH (20:25)
[2016-09-14] MEDS: INSULIN GLARGINE SOLOSTAR 100 UNITS/ML 3 ML PEN SC SCH (20:36)
[2016-09-15] VITALS (9 sets, daily range): BP systolic 117–157; BP diastolic 72–85; PULSE 80–111; TEMP 36.5–36.6; O2SAT 96–99
[2016-09-15] MEDS: PIPERACILL/TAZOBAC IV 3.375 GM in DEXTROSE 5% 100ML 100 ML IV SCH ×3 (02:38→19:31)
[2016-09-15] MEDS: LEVOTHYROXINE 25 MCG TAB PO SCH (06:05)
[2016-09-15 06:31] LABS: INR 2.3 (0.9-1.1); PROTHROMBIN TIME (PATIENT) 25.3 SECONDS (9.0-12.0)
[2016-09-15] MEDS: ALBUT/IPRATROP 3MG/0.5MG NEB 3 ML VIAL INH SCH ×3 (06:48→20:14)
[2016-09-15] MEDS: BUDESONIDE 0.5 MG/2 ML VIAL (PULMICORT) INH SCH ×2 (06:48→20:14)
[2016-09-15] MEDS: SUCRALFATE 1 GM/10 ML UDC PO SCH ×4 (07:32→21:34)
[2016-09-15] MEDS: CYANOCOBALAMIN 500 MCG TAB (VIT B-12) PO SCH (07:33)
[2016-09-15] MEDS: FUROSEMIDE 80 MG TAB PO SCH ×2 (07:33→14:43)
[2016-09-15] MEDS: CARVEDILOL 12.5 MG TAB PO SCH ×2 (07:34→21:34)
[2016-09-15] MEDS: PREGABALIN 50 MG CAP PO SCH ×2 (07:36→21:33)
[2016-09-15] MEDS: INSULIN ASPART 100 UNITS/ML 3 ML PEN SC SCH ×4 (07:42→20:32)
--- NOTE | 2016-09-15 11:30 | Progress Note ---
Subjective Date of Service: Sep 15, 2016. Subjective Pt evaluation today including: conversation w/ patient, physical exam, review of studies, review of inpatient medication list Laying in bed comfortably. No chest pain, no sob. Tolerating current diet. Breathing is "perfect." Problem List Medical Problems: (1) Anemia Status: Acute (2) COPD exacerbation Status: Acute (3) Hyperglycemia Status: Acute (4) Pneumonia Status: Acute (5) Subtherapeutic international normalized ratio (INR) Status: Acute Review of Systems All Other Systems: Reviewed and Negative Medications Acetaminophen (Tylenol Tab) 650 mg Q4H PRN PO Last administered on 09/14/16 20:24; Admin Dose 650 MG; Start 09/09/16 at 19:30; Stop 10/09/16 at 19:29 Albuterol/ Ipratropium (Duoneb) 3 ml Q2H PRN INH; Start 09/10/16 at 09:45; Stop 10/10/16 at 09:44 Albuterol/ Ipratropium (Duoneb) 3 ml TIDR INH Last administered on 09/15/16 06: 48; Admin Dose 3 ML; Start 09/10/16 at 15:00; Stop 10/10/16 at 14:59 Budesonide (Pulmicort Respules 0.5MG/ 2ML Neb Soln) 0.5 mg BIDR INH Last administered on 09/15/16 06:48; Admin Dose 0.5 MG; Start 09/09/16 at 20:00; Stop 10/09/16 at 19:59 Carvedilol (Coreg Tab) 12.5 mg BID PO Last administered on 09/15/16 07:34; Admin Dose 12.5 MG; Start 09/09/16 at 21:00; Stop 10/09/16 at 20:59 Cyanocobalamin (Vitamin B-12 Tab) 500 mcg DAILY PO Last administered on 07:33; Admin Dose 500 MCG; Start 09/10/16 at 09:00; Stop 10/10/16 at 08:59 Dextrose (Dextrose 50% 50ML Syringe) 50 ml UD PRN IV Last administered on 14:38; Admin Dose 50 ML; Start 09/09/16 at 19:30; Stop 10/09/16 at 19:29 Furosemide (Lasix Tab) 80 mg BID@0800,1400 PO Last administered on 09/15/16 07: 33; Admin Dose 80 MG; Start 09/14/16 at 08:00; Stop 10/14/16 at 07:59 Glucagon 1 mg 1 mg UD PRN SQ; Start 09/09/16 at 19:30; Stop 10/09/16 at 19:29 Glucose (Glucose 40% Gel) UD PRN PO Last administered on 09/12/16 12:16; Admin Dose 15 GM; Start 09/09/16 at 19:30; Stop 10/09/16 at 19:29 Glucose (Glucose Chew Tab) 1 tabs UD PRN PO; Start 09/09/16 at 19:30; Stop 06/15 at 19:29 Heparin Sodium (Porcine) (Heparin 10 Unit/ ml 5 ml Flush) 5 ml PRN PRN FLUSH; Start 09/13/16 at 23:45; Stop 10/13/16 at 23:44 Insulin Aspart (novoLOG ASPART) SLIDING SCALE G... ACHS SC Last administered on 09/15/16 11:39; Admin Dose 2 UNITS; Start 09/14/16 at 16:15; Stop 10/14/16 at 16:14 Insulin Glargine (Lantus Solostar Pen) 24 unit HS SC; Start 09/15/16 at 21:00; Stop 10/15/16 at 20:59 Levothyroxine Sodium (Synthroid Tab) 25 mcg DAILYBB PO Last administered on 09/15 06:05; Admin Dose 25 MCG; Start 09/10/16 at 06:00; Stop 10/10/16 at 05:59 Magnesium Hydroxide (Milk Of Magnesia Susp) 30 ml HS PRN PO; Start 09/09/16 at 19:30; Stop 10/09/16 at 19:29 Nitroglycerin (Nitrostat Tab) 0.4 mg UD PRN SL; Start 09/09/16 at 19:30; Stop 10/09/16 at 19:29 Ondansetron HCl (Zofran Inj) 4 mg Q6H PRN IV; Start 09/09/16 at 19:30; Stop 06/15 at 19:29 Paroxetine HCl (pAXil TAB) 20 mg HS PO Last administered on 09/14/16 20:25; Admin Dose 20 MG; Start 09/09/16 at 21:00; Stop 10/09/16 at 20:59 Piperacillin Sod/ Tazobactam Sod (Consult) 1 ea UD PRN N/A; Start 09/09/16 at 20:15; Stop 10/09/16 at 20:14 Piperacillin Sod/ Tazobactam Sod/ Dextrose (Zosyn Iv/D5 100ml) 115 ml @ 28.75 mls/ hr Q8@0200,1000,1800 IV Last administered on 09/15/16 10:24; Admin Dose 28.75 MLS/HR; Start 09/10/16 at 02:00; Stop 09/16/16 at 23:59 Pregabalin (Lyrica Cap) 50 mg BID PO Last administered on 09/15/16 07:36; Admin Dose 50 MG; Start 09/12/16 at 21:00; Stop 10/12/16 at 20:59 Sodium Biphosphate/ Sodium Phosphate (Fleet Enema) 10 ml DAILY PRN [place]; Start at 19:30; Stop 10/09/16 at 19:29 Sucralfate (Carafate Susp) 1 gm ACHS PO Last administered on 09/15/16 11:29; Admin Dose 1 GM; Start 09/09/16 at 21:00; Stop 10/09/16 at 20:59 Tamsulosin HCl (Flomax Cap) 0.4 mg HS PO Last administered on 09/14/16 20:25; Admin Dose 0.4 MG; Start 09/09/16 at 21:00; Stop 10/09/16 at 20:59 Warfarin Sodium (Coumadin Tab) 2 mg DAILY@16 PO Last administered on 09/14/16 16:11; Admin Dose 2 MG; Start 09/11/16 at 16:00; Stop 10/11/16 at 15:59 Zolpidem Tartrate (Ambien Tab) 5 mg HSZ PRN PO Last administered on 09/13/16 20:32; Admin Dose 5 MG; Start 09/09/16 at 19:30; Stop 10/09/16 at 19:29 Objective Vital Signs Date Time Temp Pulse Resp B/P Pulse Ox O2 Delivery O2 Flow Rate FiO2 09/15/16 08:00 Nasal Cannula 2.0 09/15/16 07:46 36.6 103 26 133/78 97 Nasal Cannula 3.0 09/15/16 06:53 103 18 96 Nasal Cannula 2.0 09/15/16 04:00 Nasal Cannula 2.0 09/15/16 04:00 36.5 94 19 117/72 96 Nasal Cannula 2.0 09/14/16 23:59 Nasal Cannula 2.0 09/14/16 23:05 36.6 105 18 120/79 94 09/14/16 20:00 Nasal Cannula 2.0 09/14/16 19:14 36.4 103 18 145/74 98 Nasal Cannula 3.0 09/14/16 19:11 72 18 94 Nasal Cannula 3.0 09/14/16 16:00 Nasal Cannula 2.0 09/14/16 15:10 36.4 86 18 124/76 98 Nasal Cannula 2.0 09/14/16 14:18 88 18 98 Room Air 09/14/16 12:00 Nasal Cannula 2.0 Physical Exam Comments: nad, aox3 eomi, anicteric irreg irreg, no murmurs appreciated diminished left lower base, right base crackles otherwise no wheezing abd soft nt nd +BS no LE edema Laboratory Results Last 24 Hours Test 09/14/16 16:09 09/14/16 20:10 09/15/16 06:05 09/15/16 06:49 Bedside Glucose 229 mg/dl 295 mg/dl 291 mg/dl Prothrombin Time 25.3 SECONDS Prothromb Time International Ratio 2.3 Test 09/15/16 11:05 Bedside Glucose 261 mg/dl Assessment and Plan 1. Aspiration pneumonia - s/p bronchoscopy - discussed with pulm - may need repeat bronchoscopy on Friday - will cont zosyn day 6 - optimize volume status 2. Afib - chronic - on coumadin at home - cont coreg - will cont coumadin 2mg daily - goal of 2-3 3. Aspiration - repeat MBS without any aspiration of thin liquids - proper aspiration precautions to be maintained - cont zosyn 4. BPH - cont tamsulosin 5. Neuropathy - Will cont on lyrica 50 BID, tolerated well 6. T2DM - hypoglycemic episodes with insulin - now hyperglycemic - only give 1/2 the dose of glargine tonight if anticipating NPO 7. BL effusions - EF on last echo in Jul is low-normal at 55% - on lasix 80 mg po bid and monitor i/o and daily weights
[2016-09-15] MEDS: WARFARIN SOD 2 MG TAB PO SCH (16:10)
[2016-09-15] MEDS ORDERED: NURSING VERBAL MED ORDER ONE (17:30)
[2016-09-15] MEDS: INSULIN GLARGINE SOLOSTAR 100 UNITS/ML 3 ML PEN SC SCH (20:32)
[2016-09-15] MEDS ORDERED: INSULIN GLARGINE SOLOSTAR 100 UNITS/ML 3 ML PEN SC SCH (21:00)
[2016-09-15] MEDS: PAROXETINE 20 MG TAB PO SCH (21:33)
[2016-09-15] MEDS: TAMSULOSIN HCL 0.4 MG CAP PO SCH (21:33)
[2016-09-15] MEDS: ACETAMINOPHEN 325 MG TAB PO PRN (21:33)
[2016-09-16] VITALS (14 sets, daily range): BP systolic 125–150; BP diastolic 62–90; PULSE 77–103; TEMP 36.4–36.6; O2SAT 92–100
[2016-09-16] MEDS: PIPERACILL/TAZOBAC IV 3.375 GM in DEXTROSE 5% 100ML 100 ML IV SCH ×3 (03:15→17:39)
[2016-09-16] MEDS: SUCRALFATE 1 GM/10 ML UDC PO SCH ×4 (05:22→20:11)
[2016-09-16] MEDS: LEVOTHYROXINE 25 MCG TAB PO SCH (05:22)
--- NOTE | 2016-09-16 07:18 | History & Physical Bridge Note ---
H&P Re-Evaluation Bridge Note: I have examined the patient, reviewed the History & Physical and in the interval since the performance of the History & Physical I have noted the following changes of clinical significance: No changes noted
[2016-09-16] MEDS: ALBUT/IPRATROP 3MG/0.5MG NEB 3 ML VIAL INH SCH ×3 (07:35→19:58)
[2016-09-16] MEDS: BUDESONIDE 0.5 MG/2 ML VIAL (PULMICORT) INH SCH ×2 (07:35→19:58)
[2016-09-16 07:48] LABS: BASO % 0.4 %; BASO ABS # 0.02 K/uL (0-0.2); LYMPH % 20.2 %; MEAN CELL VOLUME 81.6 fL (80-100); MEAN CORPUSCULAR HEMOGLOBIN 24.5 pg (25-34); MEAN PLATELET VOLUME 9.5 fL (7.4-10.4); MONO % 12.8 %; NEUT % 61.6 %; PLATELET COUNT 152 K/uL (130-400); RED BLOOD COUNT 3.31 M/uL (4.7-6.1); WHITE BLOOD COUNT 5.45 K/uL (4.8-10.8)
[2016-09-16 07:59] LABS: INR 2.3 (0.9-1.1); PROTHROMBIN TIME (PATIENT) 25.5 SECONDS (9.0-12.0)
[2016-09-16] MEDS: FUROSEMIDE 80 MG TAB PO SCH ×2 (08:00→14:17)
[2016-09-16] MEDS: INSULIN ASPART 100 UNITS/ML 3 ML PEN SC SCH ×4 (08:11→20:54)
[2016-09-16 08:15] LABS: BUN/CREATININE RATIO 22.2 (10-20); CALCIUM 8.5 mg/dl (8.5-10.1); CREATININE 0.54 mg/dl (0.60-1.40); POTASSIUM 3.5 mmol/L (3.5-5.1)
--- NOTE | 2016-09-16 08:35 | PROGRESS NOTE ---
DATE: 09/16/2016 SUBJECTIVE: The patient is comfortable this morning, states he feels better with the thoracentesis yesterday. He feels well at the present time. He apparently had 800 mL of fluid removed, it appears to be transudative. That was from the left hemithorax. Fungal smear and cultures were unremarkable. The AFB smear showed no AFB and the Gram stain showed no growth. Bronchoscopy was unremarkable as well except for mucus plugging. Pathology of the pleural fluid from the 15th showed reactive mesothelial cells, red cells and neutrophils, lymphocytes with no malignant cells noted. The patient states he feels 100% better now. He has not had any cough, significant sputum production, fevers or night sweats. I believe he is scheduled for bronchoscopy again to evaluate the left main stem bronchus where he had large mucus plugs. PHYSICAL EXAMINATION: VITAL SIGNS: Stable. He is afebrile. Blood pressure 140/88, oxygen saturation 96% on 2 liters. NECK: There is no neck vein distention or HJR. No adenopathy is noted. HEART: Regular rate and rhythm. No murmurs are heard. LUNGS: With decreased breath sounds bilaterally, otherwise are clear. There is hyperexpansion of the thorax. No fremitus is noted. ABDOMEN: Soft, nontender. EXTREMITIES: He has no cyanosis, clubbing or edema. LABORATORY DATA: White count is 5.4, hemoglobin is 8.1. INR today is 2.3. PRP is pending. His sugars have been in the 150-291 range. IMPRESSION: 1. Chronic obstructive pulmonary disease with exacerbation. 2. Left pleural effusion, this appears to be transudative. 3. Mucus plugging of the left main stem bronchus with left lower lobe atelectasis. 4. Cholelithiasis, asymptomatic. 5. Small pulmonary nodular densities right upper lobe. RECOMMENDATIONS: 1. Continue his present medications and good glucose control. I believe he is scheduled for bronchoscopy, but his INR is 2.3. 2. Continue on the DuoNeb, present antimicrobial agents and Pulmicort Respules by way of nebulizer twice daily and increase activity as tolerated. Overall, he is stable.
[2016-09-16] MEDS: CARVEDILOL 12.5 MG TAB PO SCH ×2 (09:00→20:12)
[2016-09-16] MEDS: CYANOCOBALAMIN 500 MCG TAB (VIT B-12) PO SCH (09:00)
[2016-09-16] MEDS: PREGABALIN 50 MG CAP PO SCH ×2 (09:00→20:14)
[2016-09-16 10:24] LABS: COMPLETE YES; LARGE PLATELETS 1+
--- NOTE | 2016-09-16 10:45 | Procedure Note ---
Pre-Mod Sedation Assessment General Date of Moderate Sedation: Sep 16, 2016. Vital Signs: Vital Signs Past 12 Hours Date Time Temp Pulse Resp B/P Pulse Ox O2 Delivery O2 Flow Rate FiO2 09/16/16 07:35 77 12 96 Nasal Cannula 2.0 09/16/16 07:18 36.5 77 20 140/88 95 Nasal Cannula 2.0 09/16/16 07:17 36.5 97 19 125/71 97 Nasal Cannula 2.0 50 09/16/16 04:00 Nasal Cannula 2.0 09/16/16 03:20 36.5 97 19 125/71 97 Nasal Cannula 2.0 09/15/16 23:59 Nasal Cannula 2.0 09/15/16 23:03 36.5 96 19 120/75 96 Nasal Cannula 2.0 Review Cardiovascular: regular rate, rhythm, no edema, no gallop, no JVD, no murmur, + JVD Abdomen: normal bowel sounds, non tender, soft, no organomegaly, no pulsatile mass, normal rectal exam, occult blood negative Lungs: + pertinent finding (no breath sounds along the left marily-thorax with decreased at the right base) Airway Class: II Pre-Sedation Airway Assessment Oral Cavity: Dental Abnormalities, WNL Hx of Sleep Apnea: Yes Smoking Status: Former Smoker Mallampati Classification: Class III Procedure Planning Yes Notes The planned sedation has been discussed with the patient and consent obtained. I have identified the patient, determined the appropriateness of sedation and have assessed the patient immediately prior to the procedure. All medicine(s) and interventions are by my order.
[2016-09-16] MEDS ORDERED: LIDOCAINE HCL 2% LOCAL 50ML VIAL INFIL ONE (11:08)
[2016-09-16] MEDS ORDERED: LIDOCAINE 4% INH SOLN 4 ML BTL ONE (11:08)
[2016-09-16] MEDS ORDERED: MIDAZOLAM HCL 5 MG/ML 1 ML VIAL IV ONE ×2 (11:08→11:30)
[2016-09-16] MEDS ORDERED: FENTANYL CITRATE INJ 50 MCG/1 ML 2 ML VIAL IV ONE ×2 (11:08→11:30)
[2016-09-16] MEDS ORDERED: NURSING VERBAL MED ORDER ONE (11:30)
--- NOTE | 2016-09-16 11:32 | Bronchoscopy Procedure Note ---
Bronchoscopy Procedure Note Procedure: Bronchoscopy, conscious sedation Consent: Obtained to the patient placed into the chart Preprocedural diagnosis: Left hemithorax obstruction/mucous plugging Postprocedural diagnosis: Left hemithorax obstruction/aspiration/mucous plugging Analgesia: 2% liquid lidocaine, via bronchoscopy Sedation: Versed IV: 2 mg Fentanyl IV: 50 g Procedure: The Olympus video bronchoscope was used for this procedure passed out through the oropharynx. Oropharynx: [place] 3 Posterior pharynx/glottis: She showed glottis otherwise anatomically within normal limits Vocal cords: Proper abduction and abduction noted Subglottis/trachea/Rebecca: Anatomically within normal limits, diffuse mucus plugging but no signs of obstruction. Right bronchial tree: Right mainstem: Anatomically within normal limits Right upper lobe: Anatomically within normal limits Bronchus intermedius: Anatomically within normal limits Right middle lobe: Anatomically within normal limits Right lower lobe: Anatomically within normal limits Findings: Diffuse mucous secretions along the mainstem and bronchus intermedius taylor with no signs of obstruction of the lobes. Left bronchial tree: Left mainstem: Anatomically within normal limits, diffuse mucus secretions but no signs of obstruction or 100% plugging Secondary rebecca: Secondary rebecca was completely plugged with mucus secretions obstructing the takeoff to the left upper, lingula and left lower lobes Left upper lobe: anatomically within normal limits Lingula: Anatomically within normal limits Left lower lobe: Anatomically within normal limits Findings: Mechanical removal of large/copious amount of mucus secretions was performed. At the end of the procedure the proximal left upper, lingular and left lower lobes were free of mucus obstruction. Complications: None Follow-up: Patient will be sent back to the inpatient room
--- NOTE | 2016-09-16 15:54 | Progress Note ---
Subjective Date of Service: Sep 16, 2016. Subjective pt did say he felt improved pre procedure today but not yet to his baseline with regard to his breathing, for additional bronchoscopy 09/16/16. Problem List Medical Problems: (1) Anemia Status: Acute (2) COPD exacerbation Status: Acute (3) Hyperglycemia Status: Acute (4) Pneumonia Status: Acute (5) Subtherapeutic international normalized ratio (INR) Status: Acute Review of Systems Constitutional: + fatigue, + weakness Respiratory: + cough, + dyspnea on exertion, + shortness of breath, No sputum Cardiac: No chest pain, No orthopnea Abdomen: No nausea, No pain Musculoskeletal: No joint pain, No muscle pain Male : No dysuria, No urinary frequency Psychiatric: No anhedonism, No depression symptoms Objective Vital Signs Date Time Temp Pulse Resp B/P Pulse Ox O2 Delivery O2 Flow Rate FiO2 09/16/16 07:35 77 12 96 Nasal Cannula 2.0 09/16/16 07:18 36.5 77 20 140/88 95 Nasal Cannula 2.0 09/16/16 07:17 36.5 97 19 125/71 97 Nasal Cannula 2.0 50 09/16/16 04:00 Nasal Cannula 2.0 09/16/16 03:20 36.5 97 19 125/71 97 Nasal Cannula 2.0 09/15/16 23:59 Nasal Cannula 2.0 09/15/16 23:03 36.5 96 19 120/75 96 Nasal Cannula 2.0 09/15/16 20:14 111 18 96 Nasal Cannula 2.0 09/15/16 20:00 Nasal Cannula 2.0 09/15/16 19:25 36.5 86 18 157/85 96 Nasal Cannula 3.0 09/15/16 16:00 Nasal Cannula 2.0 09/15/16 15:06 36.5 94 16 146/80 99 Nasal Cannula 2.0 09/15/16 14:08 80 18 97 Nasal Cannula 2.0 09/15/16 12:01 36.5 90 20 123/81 97 Nasal Cannula 2.0 09/15/16 12:00 Nasal Cannula 2.0 09/15/16 08:00 Nasal Cannula 2.0 09/15/16 07:46 36.6 103 26 133/78 97 Nasal Cannula 3.0 Physical Exam General Appearance: WD/WN, + mild distress Neck: supple, trachea midline Respiratory/Chest: + respiratory distress, + decreased breath sounds, + accessory muscle use Cardiovascular: regular rate, rhythm, no murmur Abdomen: normal bowel sounds, non tender, soft Extremities: no pedal edema, no calf tenderness Neurologic/Psychiatric: alert, oriented x 3 Laboratory Results Last 24 Hours Test 09/15/16 11:05 09/15/16 16:07 09/15/16 19:58 09/16/16 04:44 Bedside Glucose 261 mg/dl 178 mg/dl 181 mg/dl Test 09/16/16 06:42 Bedside Glucose 160 mg/dl Assessment and Plan Aspiration pneumonia, s/p bronchoscopy, repeat bronchoscopy on Friday, ,.proper aspiration precautions to be maintained acute respiratory failure, pt had significant secretions, on both bronchoscopies , will continue to follow and consider repeat, good news is no food products seen on bronch 09/16 Dysphagia, once again speech recommends strict aspiration precautions Afib coreg, coumadin 2mg daily, inr is therapeutic will follow BPH tamsulosin T2DM, managed with basal/bolus, holding if npo Neuropathy lyrica 50 BID, tolerated well BL effusions, not large enough to drain Last echo in Feb is low-normal at 55%, lasix 80 mg po bid
[2016-09-16] MEDS: WARFARIN SOD 2 MG TAB PO SCH (16:14)
[2016-09-16] MEDS: TAMSULOSIN HCL 0.4 MG CAP PO SCH (20:11)
[2016-09-16] MEDS: PAROXETINE 20 MG TAB PO SCH (20:11)
[2016-09-16] MEDS: INSULIN GLARGINE SOLOSTAR 100 UNITS/ML 3 ML PEN SC SCH (20:54)
[2016-09-17] VITALS (11 sets, daily range): BP systolic 115–134; BP diastolic 75–85; PULSE 72–104; TEMP 36.3–36.8; O2SAT 92–97
[2016-09-17] MEDS: ALBUT/IPRATROP 3MG/0.5MG NEB 3 ML VIAL INH SCH ×5 (02:18→18:57)
[2016-09-17 05:57] LABS: HEMATOCRIT 27.1 % (42-52); MEAN CELL VOLUME 81.1 fL (80-100); MEAN CORPUSCULAR HEMOGLOBIN 24.3 pg (25-34); MEAN CORPUSCULAR HGB CONC 29.9 g/dl (32-36); MEAN PLATELET VOLUME 9.4 fL (7.4-10.4); PLATELET COUNT 164 K/uL (130-400); RED BLOOD COUNT 3.34 M/uL (4.7-6.1); WHITE BLOOD COUNT 5.88 K/uL (4.8-10.8)
[2016-09-17 06:08] LABS: INR 2.3 (0.9-1.1); PROTHROMBIN TIME (PATIENT) 25.9 SECONDS (9.0-12.0)
[2016-09-17] MEDS: SUCRALFATE 1 GM/10 ML UDC PO SCH ×4 (06:10→21:33)
[2016-09-17] MEDS: LEVOTHYROXINE 25 MCG TAB PO SCH (06:10)
[2016-09-17 06:28] LABS: BUN/CREATININE RATIO 25.8 (10-20); CALCIUM 8.1 mg/dl (8.5-10.1); CREATININE 0.59 mg/dl (0.60-1.40); POTASSIUM 3.8 mmol/L (3.5-5.1)
[2016-09-17] MEDS: BUDESONIDE 0.5 MG/2 ML VIAL (PULMICORT) INH SCH ×2 (07:05→18:57)
--- NOTE | 2016-09-17 07:38 | PROGRESS NOTE ---
DATE: 09/17/2016 PULMONARY PROGRESS NOTE SUBJECTIVE: The patient is comfortable, states he feels considerably improved. He still has a Doe catheter placed, does not use that at home. Denies cough or significant sputum production. He wants to get up and ambulate and be out of bed as much as he can, although of course he is weak. OBJECTIVE: VITAL SIGNS: Stable. He is afebrile. Blood pressure 130/78, oxygen saturation 97% on 2 liters. I\T\O 938 in, 950 out. Weight 88.4 kilograms and that is stable. GENERAL: According to the nurses' notes, he had a fairly good night last night with neuropathic pain which is chronic for him. NECK: There is no neck vein distention or HJR. No thrush noted. HEART: Regular rate and rhythm with occasional ectopic beat. LUNGS: With decreased breath sounds, otherwise are clear. ABDOMEN: Soft, nontender. EXTREMITIES: He has no cyanosis, clubbing or edema. LABORATORY DATA: Pleural fluid cytology is negative. PRP looks good with a BUN of 15, creatinine of 0.5. White count stable with hemoglobin of 8.1. IMPRESSION: 1. Chronic obstructive pulmonary disease with exacerbation. 2. Left pleural effusion. This appears to be transudative. RECOMMENDATIONS: 1. Continue with his present medications for his lung disease. 2. Increase activity. 3. Follow up with Dr. Beaver as an outpatient in about 2 weeks after discharge.
[2016-09-17] MEDS: INSULIN ASPART 100 UNITS/ML 3 ML PEN SC SCH ×3 (08:02→21:42)
[2016-09-17] MEDS: CARVEDILOL 12.5 MG TAB PO SCH ×2 (08:03→19:43)
[2016-09-17] MEDS: FUROSEMIDE 80 MG TAB PO SCH ×2 (08:03→14:39)
[2016-09-17] MEDS: CYANOCOBALAMIN 500 MCG TAB (VIT B-12) PO SCH (08:04)
[2016-09-17] MEDS: PREGABALIN 50 MG CAP PO SCH ×2 (08:07→19:45)
[2016-09-17] MEDS ORDERED: GI COCKTAIL PO PRN (12:30)
[2016-09-17] MEDS ORDERED: ALUMINUM/MAGNESIUM SUSP 72 ML, LIDOCAINE HCL 2% VISCOUS SOLN 24 ML, BARCODE IDENTIFIER ... PO PRN ×4 (13:00)
[2016-09-17] MEDS: WARFARIN SOD 2 MG TAB PO SCH (17:00)
--- NOTE | 2016-09-17 17:55 | Progress Note ---
Subjective Date of Service: Sep 17, 2016. Subjective pt states he feels worse today, may have another bronchoscopy this week, considerable aspiration risk, is having some subxyphoid pain Problem List Medical Problems: (1) Anemia Status: Acute (2) COPD exacerbation Status: Acute (3) Hyperglycemia Status: Acute (4) Pneumonia Status: Acute (5) Subtherapeutic international normalized ratio (INR) Status: Acute Review of Systems Constitutional: No chills, No fever Respiratory: + cough, + shortness of breath, + wheezing, No sputum Cardiac: No chest pain, No orthopnea Abdomen: No diarrhea, No nausea, No pain, No vomiting Male : No dysuria, No urinary frequency Psychiatric: No anhedonism, No depression symptoms Objective Vital Signs Date Time Temp Pulse Resp B/P Pulse Ox O2 Delivery O2 Flow Rate FiO2 09/17/16 07:36 36.8 85 18 134/80 92 Nasal Cannula 2.0 09/17/16 07:06 90 18 95 Nasal Cannula 2.0 09/17/16 04:00 Nasal Cannula 2.0 09/17/16 03:55 36.6 87 19 130/78 97 Nasal Cannula 2.0 09/17/16 02:19 93 20 96 Nasal Cannula 2.0 09/17/16 00:00 36.6 104 20 132/85 95 Nasal Cannula 2.0 09/17/16 00:00 Nasal Cannula 2.0 09/16/16 20:00 Nasal Cannula 2.0 09/16/16 19:58 102 18 92 Nasal Cannula 2.0 09/16/16 19:20 36.6 83 20 143/76 96 09/16/16 16:00 Nasal Cannula 2.0 09/16/16 15:48 36.5 91 18 129/62 95 09/16/16 12:00 Nasal Cannula 2.0 09/16/16 11:58 Mask 09/16/16 11:20 103 18 130/77 98 Nasal Cannula 4.0 09/16/16 11:15 95 18 144/74 100 Mask 10.0 09/16/16 11:10 80 18 136/70 100 Mask 10.0 09/16/16 11:05 92 21 137/82 100 Mask 10.0 09/16/16 11:00 87 21 150/90 100 Mask 10.0 09/16/16 10:43 36.4 93 20 130/75 96 Nasal Cannula 2.0 09/16/16 10:24 98 20 135/89 94 Mask 10.0 Physical Exam General Appearance: WD/WN, + mild distress Neck: supple, no JVD Respiratory/Chest: + decreased breath sounds, + accessory muscle use, + rhonchi Cardiovascular: regular rate, rhythm, no murmur Abdomen: normal bowel sounds, non tender, soft Extremities: no pedal edema, no calf tenderness Neurologic/Psychiatric: alert, oriented x 3 Skin: normal color, no rash Laboratory Results Last 24 Hours Test 09/16/16 12:17 09/16/16 16:03 09/16/16 19:40 09/17/16 05:34 Bedside Glucose 103 mg/dl 213 mg/dl 305 mg/dl White Blood Count 5.88 K/uL Red Blood Count 3.34 M/uL Hemoglobin 8.1 g/dL Hematocrit 27.1 % Mean Corpuscular Volume 81.1 fL Mean Corpuscular Hemoglobin 24.3 pg Mean Corpuscular Hemoglobin Concent 29.9 g/dl RDW Standard Deviation 49.1 fL RDW Coefficient of Variation 16.4 % Platelet Count 164 K/uL Mean Platelet Volume 9.4 fL Prothrombin Time 25.9 SECONDS Prothromb Time International Ratio 2.3 Sodium Level 141 mmol/L Potassium Level 3.8 mmol/L Chloride Level 101 mmol/L Carbon Dioxide Level 38 mmol/L Anion Gap 2.0 mmol/L Blood Urea Nitrogen 15 mg/dl Creatinine 0.59 mg/dl Est Creatinine Clear Calc Drug Dose 124.2 ml/min Estimated GFR () 117.2 Estimated GFR (Non- 101.1 BUN/Creatinine Ratio 25.8 Random Glucose 117 mg/dl Calcium Level 8.1 mg/dl Test 09/17/16 06:55 Bedside Glucose 136 mg/dl Assessment and Plan Aspiration pneumonia, s/p bronchoscopy, repeat bronchoscopy 09/16 , , .proper aspiration precautions to be maintained acute respiratory failure, pt had significant secretions, on both bronchoscopies , will continue to follow and consider repeat, good news is no food products seen on bronch 09/16, pt is a known chornic aspiration risk, family and patient aware, possible additional bronchoscopy this week Dysphagia, once again speech recommends strict aspiration precautions, does fair at bedside Afib rate controlled, continue coreg, coumadin 2mg daily, inr is therapeutic will follow BPH tamsulosin, had symptoms, [place] placed T2DM, managed with basal/bolus, holding if npo Neuropathy lyrica 50 BID, tolerated well BL effusions, not large enough to drain Last echo in Feb is low-normal at 55%, likely right heart failure from copd, managed with lasix 80 mg po bid
[2016-09-17] MEDS: TAMSULOSIN HCL 0.4 MG CAP PO SCH (21:33)
[2016-09-17] MEDS: PAROXETINE 20 MG TAB PO SCH (21:34)
[2016-09-17] MEDS: INSULIN GLARGINE SOLOSTAR 100 UNITS/ML 3 ML PEN SC SCH (21:39)
[2016-09-18] VITALS (21 sets, daily range): BP systolic 105–145; BP diastolic 34–94; PULSE 85–111; TEMP 36.1–36.5; O2SAT 91–100
[2016-09-18] MEDS: ALBUT/IPRATROP 3MG/0.5MG NEB 3 ML VIAL INH SCH ×4 (04:42→19:40)
[2016-09-18 06:01] LABS: INR 1.9 (0.9-1.1); PROTHROMBIN TIME (PATIENT) 20.4 SECONDS (9.0-12.0)
[2016-09-18] MEDS: SUCRALFATE 1 GM/10 ML UDC PO SCH ×4 (06:20→22:02)
[2016-09-18] MEDS: LEVOTHYROXINE 25 MCG TAB PO SCH (06:21)
[2016-09-18] MEDS: INSULIN ASPART 100 UNITS/ML 3 ML PEN SC SCH ×4 (06:30→22:09)
[2016-09-18] MEDS: BUDESONIDE 0.5 MG/2 ML VIAL (PULMICORT) INH SCH ×2 (07:24→19:40)
[2016-09-18] MEDS: FUROSEMIDE 80 MG TAB PO SCH ×2 (08:00→13:02)
[2016-09-18] MEDS: CARVEDILOL 12.5 MG TAB PO SCH ×2 (08:00→22:03)
[2016-09-18] MEDS: PREGABALIN 50 MG CAP PO SCH ×2 (08:00→22:02)
[2016-09-18] MEDS: CYANOCOBALAMIN 500 MCG TAB (VIT B-12) PO SCH (08:00)
--- NOTE | 2016-09-18 08:24 | Procedure Note ---
Pre-Mod Sedation Assessment General Date of Moderate Sedation: Sep 18, 2016. Vital Signs: Vital Signs Past 12 Hours Date Time Temp Pulse Resp B/P Pulse Ox O2 Delivery O2 Flow Rate FiO2 09/18/16 08:19 36.5 93 18 135/85 96 Nasal Cannula 2.0 09/18/16 07:25 87 18 94 Nasal Cannula 2.0 09/18/16 05:44 Nasal Cannula 2.0 09/18/16 04:43 92 20 94 Nasal Cannula 2.0 09/18/16 01:25 36.5 93 16 119/78 94 Room Air 09/18/16 00:00 95 Nasal Cannula 2.0 50 Review Cardiovascular: regular rate, rhythm, no edema, no gallop, no JVD, no murmur, + JVD Abdomen: normal bowel sounds, non tender, soft, no organomegaly, no pulsatile mass, normal rectal exam, occult blood negative Lungs: + pertinent finding (no breath sounds along the left marily-thorax with decreased at the right base) Airway Class: II Pre-Sedation Airway Assessment Oral Cavity: Dental Abnormalities, WNL Short Thick Neck: No Hx of Sleep Apnea: Yes Smoking Status: Former Smoker Notes The planned sedation has been discussed with the patient and consent obtained. I have identified the patient, determined the appropriateness of sedation and have assessed the patient immediately prior to the procedure. All medicine(s) and interventions are by my order.
[2016-09-18] MEDS ORDERED: NURSING VERBAL MED ORDER ONE (10:30)
[2016-09-18] MEDS ORDERED: FENTANYL CITRATE INJ 50 MCG/1 ML 2 ML VIAL IV ONE (10:30)
[2016-09-18] MEDS ORDERED: MIDAZOLAM HCL 5 MG/ML 1 ML VIAL IV ONE (10:30)
--- NOTE | 2016-09-18 10:36 | Bronchoscopy Procedure Note ---
Bronchoscopy Procedure Note Procedure: Bronchoscopy, conscious sedation Consent: Obtained to the patient placed in the chart Preprocedural diagnosis: Aspiration Postprocedural diagnosis: Aspiration Analgesia: 2% liquid lidocaine: Via bronchoscopy 2% liquid lidocaine: Via nebulizer 4% gel lidocaine: Via right naris Sedation: Versed IV: 2 mg Fentanyl IV: 50 g Procedure: The Olympus video bronchoscope was initially used for this procedure passed down through the right naris. The right naris/posterior naris: Anatomically within normal limits Patient was notably uncomfortable passing the scope through the right naris into note past cleanly/easily we then repositioned and placed the scope through the oropharynx. Oropharynx: Within normal limits Posterior oropharynx: Within normal limits Claudette-Glottis: Anatomically within normal limits Glottis: Anatomically within normal limits Vocal cords: Proper abduction and abduction Subglottis/trachea/Doris: Diffuse mucus plugging requiring intubation and extubation with the bronchoscope. Right bronchial tree: Right mainstem bronchus: Anatomically within normal limits Right upper lobe: Anatomically within normal limits Bronchus intermedius: Anatomically within normal limits Right middle lobe: Anatomically within normal limits Right lower lobe: Anatomically within normal limits Findings: Diffuse mucous plugs but able to be suctioned through the bronchoscope. Left bronchial tree: Left mainstem bronchus: Anatomically within normal limits Left upper lobe: Anatomically within normal limits Lingula: Anatomically within normal limits Left lower lobe: Anatomically within normal limits Findings: Diffuse and thick mucous plugs requiring intubation and extubation with the bronchoscope for removal. 2 pieces of food particulate material were noted and removed, these were removed from the left mainstem bronchus and left lower lobe. Complications: None Follow-up: Patient will be returned to his room and followed up postprocedural care. After the patient is discharged he will be follow-up in the [place] [facility]. Should be noted I have spoken to Dr. Ordaz about this patient I do not believe further bronchoscopy at this time will benefit the patient. It is possible the future bronchoscopy may be warranted after further clinical and radiographic analysis
--- NOTE | 2016-09-18 10:38 | Procedure Note ---
Post-Moderate Sedation Plan General Date of Moderate Sedation Sep 18, 2016. Vital Signs: Vital Signs Past 12 Hours Date Time Temp Pulse Resp B/P Pulse Ox O2 Delivery O2 Flow Rate FiO2 09/18/16 10:35 36.2 103 20 110/34 95 Nasal Cannula 4.0 09/18/16 10:25 36.3 96 20 118/73 96 Nasal Cannula 4.0 09/18/16 10:20 102 21 121/78 95 Mask 4.0 09/18/16 10:15 85 22 126/88 95 Mask 4.0 09/18/16 10:10 111 24 115/93 98 Mask 4.0 09/18/16 10:05 87 20 131/88 98 Mask 4.0 09/18/16 10:00 111 20 140/85 98 Mask 4.0 09/18/16 09:55 101 20 145/80 100 Mask 4.0 09/18/16 09:45 100 18 141/94 100 Mask 4.0 09/18/16 08:19 36.5 93 18 135/85 96 Nasal Cannula 2.0 09/18/16 08:00 Nasal Cannula 2.0 09/18/16 07:25 87 18 94 Nasal Cannula 2.0 09/18/16 05:44 Nasal Cannula 2.0 09/18/16 04:43 92 20 94 Nasal Cannula 2.0 09/18/16 01:25 36.5 93 16 119/78 94 Room Air 09/18/16 00:00 95 Nasal Cannula 2.0 50 Review - Discharge Plan Post Moderate Sedation Plan: On clinical assessment, the patient appears to have tolerated the conscious sedation without complications. Patient is recovering as anticipated. Patient will continue to be monitored by nursing and may be discharged when conscious sedation discharge criteria are met.
--- NOTE | 2016-09-18 17:10 | Progress Note ---
Subjective Date of Service: Sep 18, 2016. Subjective pt is coughing but otherwise feels better, ren the daughter is at bedside, and updated with her fadumo. agreeable to subacute rehab Problem List Medical Problems: (1) Anemia Status: Acute (2) COPD exacerbation Status: Acute (3) Hyperglycemia Status: Acute (4) Pneumonia Status: Acute (5) Subtherapeutic international normalized ratio (INR) Status: Acute Review of Systems Constitutional: No chills, No fever, No weakness Respiratory: + cough, + dyspnea on exertion, + shortness of breath Cardiac: No chest pain, No edema Abdomen: No diarrhea, No nausea, No pain, No vomiting Musculoskeletal: No joint pain, No muscle pain Male : No dysuria, No urinary frequency Psychiatric: No anhedonism, No depression symptoms Objective Vital Signs Date Time Temp Pulse Resp B/P Pulse Ox O2 Delivery O2 Flow Rate FiO2 09/18/16 15:55 36.4 108 18 105/64 94 09/18/16 14:26 Mask 09/18/16 14:15 87 18 95 Nasal Cannula 2.0 09/18/16 11:20 36.3 106 18 125/72 91 Nasal Cannula 2.0 09/18/16 10:55 36.2 95 20 120/76 97 Nasal Cannula 4.0 09/18/16 10:45 36.1 108 20 115/71 96 Nasal Cannula 4.0 09/18/16 10:35 36.2 103 20 110/34 95 Nasal Cannula 4.0 09/18/16 10:25 36.3 96 20 118/73 96 Nasal Cannula 4.0 09/18/16 10:20 102 21 121/78 95 Mask 4.0 09/18/16 10:15 85 22 126/88 95 Mask 4.0 09/18/16 10:10 111 24 115/93 98 Mask 4.0 09/18/16 10:05 87 20 131/88 98 Mask 4.0 09/18/16 10:00 111 20 140/85 98 Mask 4.0 09/18/16 09:55 101 20 145/80 100 Mask 4.0 09/18/16 09:45 100 18 141/94 100 Mask 4.0 09/18/16 08:19 36.5 93 18 135/85 96 Nasal Cannula 2.0 09/18/16 08:00 Nasal Cannula 2.0 09/18/16 07:25 87 18 94 Nasal Cannula 2.0 09/18/16 05:44 Nasal Cannula 2.0 09/18/16 04:43 92 20 94 Nasal Cannula 2.0 09/18/16 01:25 36.5 93 16 119/78 94 Room Air 09/18/16 00:00 95 Nasal Cannula 2.0 50 09/17/16 18:57 79 18 95 Nasal Cannula 2.0 Physical Exam General Appearance: WD/WN, + mild distress Neck: supple, no JVD Respiratory/Chest: chest non-tender, + decreased breath sounds, + accessory muscle use, + rhonchi Cardiovascular: regular rate, rhythm, + systolic murmur Abdomen: normal bowel sounds, non tender, soft Extremities: no pedal edema, no calf tenderness Neurologic/Psychiatric: alert, oriented x 3 Laboratory Results Last 24 Hours Test 09/17/16 21:41 09/18/16 05:05 09/18/16 06:42 09/18/16 11:26 Bedside Glucose 271 mg/dl 106 mg/dl 115 mg/dl Prothrombin Time 20.4 SECONDS Prothromb Time International Ratio 1.9 Test 09/18/16 16:49 Bedside Glucose 267 mg/dl Assessment and Plan Aspiration pneumonia, s/p bronchoscopy, repeat bronchoscopy 09/16, , ,.proper aspiration precautions to be maintained acute respiratory failure, pt had significant secretions, on both bronchoscopies , will continue to follow and consider repeat, good news is no food products seen on bronch 09/16, pt is a known chornic aspiration risk, had prolonged family visit of 35 minutes face to face time to discuss case and disposition Dysphagia, once again speech recommends strict aspiration precautions, does fair at bedside Afib rate controlled, continue coreg, coumadin 2mg daily, inr is near therapeutic will follow BPH tamsulosin, krueger placed T2DM, basal/bolus, Neuropathy lyrica 50 BID, tolerated well but little symptom relief BL effusions, not large enough to drain Last echo in Feb is low-normal at 55%, 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
[2016-09-18] MEDS: WARFARIN SOD 2.5 MG TAB PO SCH (17:35)
--- NOTE | 2016-09-18 21:00 | DIAGNOSTIC IMAGING REPORT ---
CHEST 2 VIEWS ROUTINE CLINICAL HISTORY: Increasing shortness of breath COMPARISON STUDY: 09/11/2016 FINDINGS: The left-sided PICC catheter remains unchanged in position. The heart remains enlarged. There is left-sided volume loss. There are bilateral pleural effusions. There is radiographic evidence of mild pulmonary vascular congestion. There is improved aeration of the left upper lung zone.[ IMPRESSION: 1. Cardiomegaly 2. Probable left lower lobe collapse with evidence of left lung volume loss and cardiac shift to the left 3. Improved aeration of the left upper lung zone 4. Bilateral pleural effusions, left greater than right 5. Probable mild pulmonary vascular congestion Electronically signed by: Art Nichols M.D. 09/18/2016 8:59 PM Dictated Date/Time: 09/18/2016 8:56 PM
[2016-09-18] MEDS: ZOLPIDEM TARTRATE 5 MG TAB PO PRN (22:02)
[2016-09-18] MEDS: PAROXETINE 20 MG TAB PO SCH (22:02)
[2016-09-18] MEDS: TAMSULOSIN HCL 0.4 MG CAP PO SCH (22:03)
[2016-09-18] MEDS: INSULIN GLARGINE SOLOSTAR 100 UNITS/ML 3 ML PEN SC SCH (22:09)
[2016-09-19] VITALS (11 sets, daily range): BP systolic 124–134; BP diastolic 73–88; PULSE 78–122; TEMP 36.4–36.7; O2SAT 93–98
[2016-09-19 05:52] LABS: HEMATOCRIT 26.6 % (42-52); MEAN CELL VOLUME 78.7 fL (80-100); MEAN CORPUSCULAR HEMOGLOBIN 23.4 pg (25-34); MEAN CORPUSCULAR HGB CONC 29.7 g/dl (32-36); MEAN PLATELET VOLUME 9.2 fL (7.4-10.4); PLATELET COUNT 180 K/uL (130-400); RED BLOOD COUNT 3.38 M/uL (4.7-6.1); WHITE BLOOD COUNT 5.91 K/uL (4.8-10.8)
[2016-09-19 06:01] LABS: INR 2.1 (0.9-1.1); PROTHROMBIN TIME (PATIENT) 23.3 SECONDS (9.0-12.0)
[2016-09-19] MEDS: SUCRALFATE 1 GM/10 ML UDC PO SCH ×4 (06:33→20:17)
[2016-09-19] MEDS: LEVOTHYROXINE 25 MCG TAB PO SCH (06:33)
[2016-09-19 06:37] LABS: CALCIUM 8.2 mg/dl (8.5-10.1); CREATININE 0.61 mg/dl (0.60-1.40); POTASSIUM 3.8 mmol/L (3.5-5.1)
[2016-09-19] MEDS: ALBUT/IPRATROP 3MG/0.5MG NEB 3 ML VIAL INH SCH ×3 (07:06→19:12)
[2016-09-19] MEDS: BUDESONIDE 0.5 MG/2 ML VIAL (PULMICORT) INH SCH ×2 (07:06→19:12)
--- NOTE | 2016-09-19 07:36 | PROGRESS NOTE ---
DATE: 09/19/2016 SUBJECTIVE: The patient actually seemed to be comfortable this morning. I watched him sleeping. His respiratory rate was 14 with no snoring or evidence of upper airway obstruction. When awakened, he states he actually feels a bit better this morning. He did have some shortness of breath following the procedure. He has not had any cough or significant sputum production. He denies chest discomfort. He states he has been sleeping fairly well. He does have a cough which is nonproductive, but minimal. OBJECTIVE: VITAL SIGNS: Stable. His respiratory rate is 18, blood pressure is 124/74 and oxygen saturation 93% on two liters. I\T\O is 1401 in and 2775 out; he has had more out than in over the last five days. Weight on the 21st was 88 kgs. NECK: Posterior pharynx looks good with no thrush. No neck vein distention or HJR. HEART: Regular rate and rhythm, 1/6 systolic murmur at the apex. LUNGS: Reveal some scattered rhonchi bilaterally with decreased breath sounds and a few bronchial breath sounds at the left base. ABDOMEN: Soft and nontender. He has significant muscle wasting of the hands and legs with some ecchymosis of the pretibial area bilaterally, but no edema and no clinical evidence of DVT. LABORATORY DATA: White count 5.9, hemoglobin 7.9, with a platelet count of 180,000. His PRP looks good with a CO2 of 35, the electrolytes was 38 on the 21st; BUN of 17, creatinine of 0.6. Sugars have been in the 115 to 288 range. Coagulation profile revealed an INR of 2.1. Pleural fluid pathology is unremarkable. IMPRESSION: 1. Pneumonia, status post bronchoscopy. Bronchoscopy revealed marked amount of mucus plugging, especially in the left main stem bronchus on the left lower lobe; hence the continued atelectasis noted on chest x-ray from last night. There is improved aeration of the left upper lobe with bilateral pleural effusions noted as well. 2. Chronic obstructive pulmonary disease. 3. Left pleural effusion. RECOMMENDATION: 1. Continue with his present medications and I would institute a good diuresis. He is on Lasix 80 b.i.d.; may need more medications to enhance that. 2. Consider decreasing the paroxetine because of the occasional somnolence and I would stop Ambien. 3. Check a TSH. 4. Continue with his present medications. Keep his INR in the 2 to 3 range. I will continue on the DuoNeb four times a day and then q. 4 hours p.r.n. Overall, at least today he seems to be stable. We discussed coughing, deep breathing, being out of bed in the chair, exercises, etc and he has agreed.
[2016-09-19] MEDS: CYANOCOBALAMIN 500 MCG TAB (VIT B-12) PO SCH (08:13)
[2016-09-19] MEDS: FUROSEMIDE 80 MG TAB PO SCH ×2 (08:13→14:36)
[2016-09-19] MEDS: CARVEDILOL 12.5 MG TAB PO SCH ×2 (08:13→20:14)
[2016-09-19] MEDS: PREGABALIN 50 MG CAP PO SCH (08:13)
[2016-09-19] MEDS: INSULIN ASPART 100 UNITS/ML 3 ML PEN SC SCH ×4 (08:18→23:24)
[2016-09-19] MEDS ORDERED: CARVEDILOL 12.5 MG TAB PO ONE (09:30)
--- NOTE | 2016-09-19 15:54 | Progress Note ---
Subjective Date of Service: Sep 19, 2016. Subjective this pt is sleepy today, will take pulmonary meds advice to reduce some meds, may benefit from more diuresis Problem List Medical Problems: (1) Anemia Status: Acute (2) COPD exacerbation Status: Acute (3) Hyperglycemia Status: Acute (4) Pneumonia Status: Acute (5) Subtherapeutic international normalized ratio (INR) Status: Acute Review of Systems Constitutional: + fatigue, + weakness, No chills, No fever Respiratory: + cough, + dyspnea on exertion, + shortness of breath Cardiac: No PND, No chest pain, No edema Abdomen: No diarrhea, No nausea, No pain, No vomiting Neurologic: + balance problems, + weakness, No memory loss, No paralysis Psychiatric: + depression symptoms, No anxiety Objective Vital Signs Date Time Temp Pulse Resp B/P Pulse Ox O2 Delivery O2 Flow Rate FiO2 09/19/16 15:21 36.4 78 18 125/73 98 3.0 09/19/16 14:20 78 18 94 Nasal Cannula 2.0 09/19/16 09:44 132/74 09/19/16 08:00 Nasal Cannula 3.0 09/19/16 08:00 105 130/88 09/19/16 08:00 122 09/19/16 08:00 98 09/19/16 07:59 36.7 111 18 134/82 95 3.0 09/19/16 07:06 86 18 93 Nasal Cannula 2.0 09/19/16 00:01 36.6 100 18 124/74 93 2.0 09/19/16 00:00 93 Nasal Cannula 2.0 50 09/18/16 19:40 93 18 93 Nasal Cannula 2.0 09/18/16 16:10 94 Nasal Cannula 2.0 09/18/16 15:55 36.4 108 18 105/64 94 Physical Exam General Appearance: WD/WN, + mild distress Neck: supple, no JVD Respiratory/Chest: chest non-tender, + accessory muscle use, + rhonchi Cardiovascular: regular rate, rhythm, no murmur Abdomen: normal bowel sounds, non tender, soft Extremities: + pedal edema, + swelling Neurologic/Psychiatric: alert, oriented x 3 Laboratory Results Last 24 Hours Test 09/18/16 16:49 09/18/16 21:12 09/19/16 05:40 09/19/16 07:21 Bedside Glucose 267 mg/dl 288 mg/dl 229 mg/dl White Blood Count 5.91 K/uL Red Blood Count 3.38 M/uL Hemoglobin 7.9 g/dL Hematocrit 26.6 % Mean Corpuscular Volume 78.7 fL Mean Corpuscular Hemoglobin 23.4 pg Mean Corpuscular Hemoglobin Concent 29.7 g/dl RDW Standard Deviation 47.1 fL RDW Coefficient of Variation 16.2 % Platelet Count 180 K/uL Mean Platelet Volume 9.2 fL Prothrombin Time 23.3 SECONDS Prothromb Time International Ratio 2.1 Sodium Level 141 mmol/L Potassium Level 3.8 mmol/L Chloride Level 101 mmol/L Carbon Dioxide Level 35 mmol/L Anion Gap 5.0 mmol/L Blood Urea Nitrogen 17 mg/dl Creatinine 0.61 mg/dl Est Creatinine Clear Calc Drug Dose 120.1 ml/min Estimated GFR () 115.6 Estimated GFR (Non- 99.8 BUN/Creatinine Ratio 28.0 Random Glucose 218 mg/dl Calcium Level 8.2 mg/dl Test 09/19/16 11:45 Bedside Glucose 258 mg/dl Assessment and Plan Aspiration pneumonia, s/p bronchoscopy, repeat bronchoscopy 09/16, , ,.proper aspiration precautions to be maintained, family aware acute respiratory failure, pt had significant secretions, on both bronchoscopies , will continue to follow and consider repeat, good news is no food products seen on bronch 09/16, pt is a known chronic aspiration risk, pt does not want to have any intervention, understands risks of recurrent infection Dysphagia, once again speech recommends strict aspiration precautions, does fair at bedside Afib rate controlled, continue coreg, coumadin 2mg daily, inr is near therapeutic will follow BPH tamsulosin, krueger placed T2DM, basal/bolus, Neuropathy stop lyrica in case is sedating Last echo in Feb is low-normal at 55%, likely right heart failure from copd, increase lasix dispostion to subacute rehab
[2016-09-19] MEDS: FUROSEMIDE INJ 80 MG in SYRINGE 0 ML IV SCH ×2 (16:12→23:27)
[2016-09-19] MEDS: WARFARIN SOD 2.5 MG TAB PO SCH (16:12)
[2016-09-19] MEDS: ACETAMINOPHEN 325 MG TAB PO PRN ×2 (16:13→20:16)
[2016-09-19] MEDS: PAROXETINE 20 MG TAB PO SCH (20:17)
[2016-09-19] MEDS: TAMSULOSIN HCL 0.4 MG CAP PO SCH (20:17)
[2016-09-19] MEDS ORDERED: OXYCODONE/ACETAMINOPHEN 5-325 TAB ONE (20:58)
[2016-09-19] MEDS ORDERED: NURSING VERBAL MED ORDER ONE (21:00)
[2016-09-19] MEDS: ALBUT/IPRATROP 3MG/0.5MG NEB 3 ML VIAL INH PRN (21:34)
[2016-09-19] MEDS: INSULIN GLARGINE SOLOSTAR 100 UNITS/ML 3 ML PEN SC SCH (23:25)
[2016-09-20] VITALS (12 sets, daily range): BP systolic 124–130; BP diastolic 75–79; PULSE 75–111; TEMP 36.3–36.8; O2SAT 90–100
[2016-09-20] MEDS: ALBUT/IPRATROP 3MG/0.5MG NEB 3 ML VIAL INH PRN ×2 (00:04→11:42)
[2016-09-20] MEDS: SUCRALFATE 1 GM/10 ML UDC PO SCH ×4 (05:48→20:53)
[2016-09-20] MEDS: LEVOTHYROXINE 25 MCG TAB PO SCH (05:48)
[2016-09-20 06:30] LABS: INR 2.7 (0.9-1.1); PROTHROMBIN TIME (PATIENT) 30.5 SECONDS (9.0-12.0)
[2016-09-20] MEDS: INSULIN ASPART 100 UNITS/ML 3 ML PEN SC SCH ×4 (06:30→20:56)
--- NOTE | 2016-09-20 06:36 | PROGRESS NOTE ---
DATE: 09/20/2016 SUBJECTIVE: The patient had a fairly good night last night. He continues to have some anterior chest discomfort with coughing, was given Percocet last night and that worked very well for him. He denies any dyspnea or significant sputum production. He slept fairly well. He continues to be weak with significant muscle wasting of the hands and feet. OBJECTIVE: VITAL SIGNS: Stable. Blood pressure is 124/75, oxygen saturation 96% on room air. He is afebrile. I Os; 275 in and 1175 out. No weights have been done since the . GENERAL: According to the nurses' notes, otherwise, he has been fairly stable. He was given Lasix intravenously. Doe catheter is draining well. He continues to have episodes of mild shortness of breath at night. HEENT: Unremarkable. No thrush noted. There is no neck vein distention of HJR. No adenopathy is noted. Expansion of the thorax actually is good with deep inspiration. HEART: Regular rate and rhythm. No murmurs or gallops are auscultated. LUNGS: With decreased breath sounds bilaterally. Few crackles at the left base. No fremitus is noted. ABDOMEN: Soft and nontender. EXTREMITIES: He has no cyanosis, clubbing or edema. The ecchymosis of the lower extremities is seen. No evidence of DVT is noted. Chest x-ray from the continued to show left lower lobe atelectasis with improvement in the left upper lung zones after bronchoscopy. Small pleural effusions were noted as well. Again, the thoracentesis fluid from the was transudative suggestive of heart failure or hypoalbuminemia causing the fluid. CO2 was 35, in electrolytes INR is pending, it was 2.1 yesterday. IMPRESSION: 1. Left lower lobe pneumonia, resolving. 2. Chronic obstructive lung disease. 3. Left pleural effusion, transudative. RECOMMENDATION: 1. Continue with good diuresis; perhaps push his BUN and creatinine or at least BUN up into the 25 range to see if his respiratory status would improve. 2. Continue with incentive spirometry. He has one at the bedside and knows how to use that. 3. Physical therapy evaluation; see if he can get out of bed and perhaps go to physical therapy, be able to walk with a walker or at least do some exercises in a wheelchair. 4. Continue on the DuoNeb 4 times a day and then q. 4 hours p.r.n. Overall, he is stable. Check a chest x-ray again next week. MTDD
[2016-09-20] MEDS: BUDESONIDE 0.5 MG/2 ML VIAL (PULMICORT) INH SCH ×2 (07:21→19:32)
[2016-09-20] MEDS: ALBUT/IPRATROP 3MG/0.5MG NEB 3 ML VIAL INH SCH ×4 (07:21→19:32)
[2016-09-20] MEDS: CARVEDILOL 12.5 MG TAB PO SCH ×2 (08:40→20:53)
[2016-09-20] MEDS: FUROSEMIDE INJ 80 MG in SYRINGE 0 ML IV SCH ×3 (08:40→23:54)
[2016-09-20] MEDS: CYANOCOBALAMIN 500 MCG TAB (VIT B-12) PO SCH (08:40)
[2016-09-20] MEDS ORDERED: NURSING VERBAL MED ORDER ONE (12:15)
--- NOTE | 2016-09-20 12:36 | Palliative Care Consultation ---
Consultation Date of Consultation: Sep 20, 2016. Requesting Physician: Dr. Sanchez Attending Physician: Dr. Sanchez Reason for Consultation: Goals of care History of Present Illness This 71 year old male patient presented to [facility] from [facility] 11 days ago with aspiration pneumonia. History obtained partially from patient and partially from record. Patient was just hospitalized here at [facility] from 07/31-08/20 with aspiration pneumonia, was discharged to [facility] where he has been since. He had a PICC line placed last week for antibiotics for recurrent aspiration pneumonia. Apparently the patient was not thickening his liquids all the time at [facility]; and specifically the day he ended up going to hospital he had a hypoglycemic episode and quickly drank several drinks without thickening and went into respiratory distress. Once here at [facility], CXR showed left pleural effusion and right lower lobe opacity with possible pleural effusion. Then developed completely opacified left lung with a mediastinal shift. He was seen by pulmonology and underwent thoracentesis on 09/11 draining 800ml from left side, bronchoscopy on 09/12 which showed mucous plugging and significant secretions. Had a repeat bronchoscopy on 09/16 showing the same. Patient being treated with IV antibiotics for the aspiration. Patient's overall condition has markedly declined with weakness, muscular deconditioning, and decreased intake. Patient has muscle wasting, albumin 2.2, has COPD and apparently uncontrolled diabetes. He was refusing therapy much of the time at [facility] because of his pain and weakness. Patient's daughter is very concerned about his condition and well-being. Palliative care consulted to assist with establishing goals of care. I met with the patient in his room, [id number]. He is awake, alert and oriented. Appeared mildly short of breath while at rest in the bed, noted coarse, moist cough. Patient denied distressed and gave me permission to discuss goals of care , respiratory therapist on way to give a breathing treatment. Patient stated, "I 'm so tired of being sick and in pain." We discussed his medical issues including aspiration pneumonia. He understands that this is a chronic problem. He states that his overall condition and functional status has declined rapidly recently, he is not able to ambulate or really care for himself at all any more. He states that it's not that he doesn't want to do therapy, he was just too weak and in too much pain from his neuropathy. Discussed goals of care, patient says he just wants to be comfortable and does not want to come back to the hospital any more. States that he used to be afraid of dying because he's not very caodaism. However he has recently spoken with a couple chaplains and now feels more at peace and has accepted it. We discussed hospice and he stated that he would like to transition to hospice but maybe go to SNF for once last try at rehab first. Patient also expressed some concern about his daughter, Edie. He says that she is having a really difficult time dealing with this situation and does not know how to talk to her about it. I offered to call his daughter and speak with her, he asked me to please do that. I spoke with Edie and updated her on my conversation with her father. She states that she knows he's tired and suffering ; agreed that she wanted him to be comfortable and was okay with his decision to transition to hospice. She stated that she would be able to provide care for him in the home if he wanted to come home with hospice. She will be coming into the hospital later this afternoon and will call me to meet with her and patient to discuss options. Past Medical/Surgical History Medical History: CAD Afib CHF BPH COPD GERD DM Pneumonia Neuropathy Social History Smoking Status: Former Smoker Drug Use: none, marijuana (not long ago, not at this time) Marital Status: single Occupation Status: retired Review of Systems Constitutional: + fatigue, + weakness, + weight loss, No chills, No fever ENT: + trouble swallowing Respiratory: + cough, + dyspnea on exertion, + shortness of breath Cardiac: No chest pain, No edema Abdomen: No nausea, No pain, No vomiting Male : + problem reported (Doe catheter in place) Psychiatric: + anxiety (sometimes about the situation) Allergies Coded Allergies: No Known Allergies (Unverified , 04/30/16) Medications Current Inpatient Medications Medications (Trade) Dose Ordered Sig/Sujatha Route Start Time Stop Time Status Last Admin Dose Admin Acetaminophen (Tylenol Tab) 650 mg Q4H PRN PO 09/09/16 19:30 10/09/16 19:29 09/19/16 20:16 650 MG Nitroglycerin (Nitrostat Tab) 0.4 mg UD PRN SL 09/09/16 19:30 10/09/16 19:29 09/19/16 20:53 0.4 MG Budesonide (Pulmicort Respules 0.5MG/ 2ML Neb Soln) 0.5 mg BIDR INH 09/09/16 20:00 10/09/16 19:59 09/20/16 07:21 0.5 MG Carvedilol (Coreg Tab) 12.5 mg BID PO 09/09/16 21:00 10/10/16 20:59 09/20/16 08:40 12.5 MG Cyanocobalamin (Vitamin B-12 Tab) 500 mcg DAILY PO 09/10/16 09:00 10/10/16 08:59 09/20/16 08:40 500 MCG Levothyroxine Sodium (Synthroid Tab) 25 mcg DAILYBB PO 09/10/16 06:00 10/10/16 05:59 09/20/16 05:48 25 MCG Magnesium Hydroxide (Milk Of Magnesia Susp) 30 ml HS PRN PO 09/09/16 19:30 10/09/16 19:29 Paroxetine HCl (pAXil TAB) 20 mg HS PO 09/09/16 21:00 10/09/16 20:59 09/19/16 20:17 20 MG Sodium Biphosphate/ Sodium Phosphate (Fleet Enema) 10 ml DAILY PRN RI 09/09/16 19:30 10/09/16 19:29 Sucralfate (Carafate Susp) 1 gm ACHS PO 09/09/16 21:00 10/09/16 20:59 09/20/16 11:29 1 GM Tamsulosin HCl (Flomax Cap) 0.4 mg HS PO 09/09/16 21:00 10/09/16 20:59 09/19/16 20:17 0.4 MG Ondansetron HCl (Zofran Inj) 4 mg Q6H PRN IV 09/09/16 19:30 10/09/16 19:29 Glucose (Glucose 40% Gel) UD PRN PO 09/09/16 19:30 10/09/16 19:29 09/12/16 12:16 15 GM Glucose (Glucose Chew Tab) 1 tabs UD PRN PO 09/09/16 19:30 10/09/16 19:29 Dextrose (Dextrose 50% 50ML Syringe) 50 ml UD PRN IV 09/09/16 19:30 10/09/16 19:29 09/12/16 14:38 50 ML Glucagon (Glucagon Inj) 1 mg UD PRN SQ 09/09/16 19:30 10/09/16 19:29 Albuterol/ Ipratropium (Duoneb) 3 ml TIDR INH 09/10/16 15:00 10/10/16 14:59 09/20/16 07:21 3 ML Albuterol/ Ipratropium (Duoneb) 3 ml Q2H PRN INH 09/10/16 09:45 10/10/16 09:44 09/20/16 11:42 3 ML Heparin Sodium (Porcine) (Heparin 10 Unit/ ml 5 ml Flush) 5 ml PRN PRN FLUSH 09/13/16 23:45 10/13/16 23:44 09/20/16 08:42 5 ML Insulin Aspart (novoLOG ASPART) SLIDING SCALE G... ACHS SC 09/14/16 16:15 10/14/16 16:14 09/19/16 23:24 2 UNITS Insulin Glargine 12 unit HS SC 09/15/16 21:00 10/15/16 20:59 09/19/16 23:25 12 UNIT Al Hydroxide/Mg Hydroxide/ Lidocaine HCl/ Barcode (Maalox Susp/ Viscous Lidocaine 2% Soln) Q8H PRN PO 09/17/16 13:00 10/17/16 12:59 Warfarin Sodium 2.5 mg 2.5 mg DAILY@16 PO 09/18/16 16:00 10/18/16 15:59 09/19/16 16:12 2.5 MG Furosemide/Syringe (Lasix Inj/ Syringe) 8 ml @ 4 mls/min Q8H IV 09/19/16 16:00 10/19/16 15:59 09/20/16 08:40 4 MLS/MIN Physical Exam Date Time Temp Pulse Resp B/P Pulse Ox O2 Delivery O2 Flow Rate FiO2 09/20/16 11:42 93 20 96 Nasal Cannula 2.0 09/20/16 08:07 36.6 75 18 130/78 100 Nasal Cannula 2.0 09/20/16 08:00 93 Nasal Cannula 2.0 09/20/16 07:23 93 20 90 Nasal Cannula 2.0 09/20/16 00:04 94 20 96 Nasal Cannula 2.0 09/20/16 00:00 36.3 89 18 124/75 95 2.0 09/20/16 00:00 Nasal Cannula 2.0 09/19/16 21:34 93 22 94 Nasal Cannula 2.0 09/19/16 20:52 83 128/80 09/19/16 20:00 Nasal Cannula 3.0 09/19/16 19:12 86 20 93 Nasal Cannula 2.0 09/19/16 16:00 Nasal Cannula 3.0 09/19/16 15:21 36.4 78 18 125/73 98 3.0 09/19/16 14:20 78 18 94 Nasal Cannula 2.0 General Appearance: no apparent distress, + pertinent finding (chronically ill appearing) Neck: no JVD Respiratory: + decreased breath sounds, + crackles, + rhonchi, + pertinent finding (mildly short of breath, can only speak a few words before taking breath ) Cardiovascular: + irregularly irregular (chronic afib), + normal peripheral pulses Abdomen: normal bowel sounds, non tender, soft Musculoskeletal: pertinent finding (deconditioned, muscle wasting) Neurologic/Psychiatric: alert, normal mood/affect, oriented x 3 Skin: + pertinent finding (brusing and scabs on lower extremities) Laboratory Results Last 24 Hours Test 09/19/16 16:36 09/19/16 20:35 09/20/16 05:40 09/20/16 07:26 Bedside Glucose 231 mg/dl 231 mg/dl 146 mg/dl Prothrombin Time 30.5 SECONDS Prothromb Time International Ratio 2.7 Test 09/20/16 12:06 Bedside Glucose 222 mg/dl Assessment & Plan Palliative Performance Scale: 30 % Problem list: Weakness/ambulatory dysfunction Pain, hands and feet Dysphagia Aspiration pneumonia 2/2 above DM Neuropathy Goals of care (Z51.5) Palliative care plan: -Patient's goal is for comfort. -SNF then transition to hospice vs. home with hospice. To discuss with patient and daughter. -Patient having pain in hands and feet. Lyrica was stopped in case it was sedating. Roxicodone 10mg PRN was started by primary doctor. I suspect it will take some titration of pain medications, wondering if Lyrica can be restarted or if gabapentin could be initiated for the neuropathic pain. -Patient will need oxygen and nebulizers on discharge most likely. -Continue comfort feeding despite risk per patient's wishes. -Patient would like to be a DNR/DNI. Discussed with Dr. Andrew. Patient would not want any life prolonging procedures such as intubation, trach or PEG tube/ artificial feeding. Thank you kindly for this consult. I will follow as needed.
[2016-09-20] MEDS: OXYCODONE HCL IR 5 MG TAB (IMMEDIATE RELEASE) PO PRN (13:07)
--- NOTE | 2016-09-20 15:42 | Progress Note ---
Subjective Date of Service: Sep 20, 2016. Subjective pt is more alert with reduction of ambien and lyrica, does have some additional neuropathy pain. Pulmonary med requests increase diuresis Problem List Medical Problems: (1) Anemia Status: Acute (2) COPD exacerbation Status: Acute (3) Hyperglycemia Status: Acute (4) Pneumonia Status: Acute (5) Subtherapeutic international normalized ratio (INR) Status: Acute Review of Systems Constitutional: No chills, No fever Respiratory: + cough, + dyspnea on exertion, + shortness of breath, + sputum Cardiac: + edema, No chest pain Abdomen: No diarrhea, No nausea, No pain, No vomiting Musculoskeletal: + joint pain Neurologic: + numbness/tingling, No memory loss Psychiatric: + depression symptoms, No anxiety Objective Vital Signs Date Time Temp Pulse Resp B/P Pulse Ox O2 Delivery O2 Flow Rate FiO2 09/20/16 14:16 92 18 97 Nasal Cannula 2.0 09/20/16 11:42 93 20 96 Nasal Cannula 2.0 09/20/16 08:07 36.6 75 18 130/78 100 Nasal Cannula 2.0 09/20/16 08:00 93 Nasal Cannula 2.0 09/20/16 07:23 93 20 90 Nasal Cannula 2.0 09/20/16 00:04 94 20 96 Nasal Cannula 2.0 09/20/16 00:00 36.3 89 18 124/75 95 2.0 09/20/16 00:00 Nasal Cannula 2.0 09/19/16 21:34 93 22 94 Nasal Cannula 2.0 09/19/16 20:52 83 128/80 09/19/16 20:00 Nasal Cannula 3.0 09/19/16 19:12 86 20 93 Nasal Cannula 2.0 09/19/16 16:00 Nasal Cannula 3.0 Physical Exam General Appearance: WD/WN, + moderate distress Neck: supple, no JVD Respiratory/Chest: + respiratory distress, + decreased breath sounds, + accessory muscle use, + rhonchi Cardiovascular: regular rate, rhythm, no murmur Abdomen: normal bowel sounds, non tender, soft Extremities: no calf tenderness, + pedal edema Neurologic/Psychiatric: alert, oriented x 3 Laboratory Results Last 24 Hours Test 09/19/16 16:36 09/19/16 20:35 09/20/16 05:40 09/20/16 07:26 Bedside Glucose 231 mg/dl 231 mg/dl 146 mg/dl Prothrombin Time 30.5 SECONDS Prothromb Time International Ratio 2.7 Test 09/20/16 12:06 Bedside Glucose 222 mg/dl Assessment and Plan Aspiration pneumonia, s/p bronchoscopy, repeat bronchoscopy 09/16, , ,.proper aspiration precautions to be maintained, family aware considering hospice acute respiratory failure, pt had significant secretions on all bronchoscopies , known chronic aspiration risk, pt does not want to have any intervention, understands risks of recurrent infection, did speak to palliative care, seems realistic Dysphagia, once again speech recommends strict aspiration precautions, does fair at bedside Afib rate controlled, continue coreg, coumadin 2mg daily, inr is near therapeutic will follow BPH tamsulosin, krueger placed T2DM, basal/bolus, Neuropathy stop lyrica in case is sedating, now pain worse attempt prn oxycodone or consider neurontin Last echo in Feb is low-normal at 55%, likely right heart failure from copd, increase lasix as does have some pleural effusions, follow Bun for response dispostion to subacute rehab, possibly home hospice
[2016-09-20] MEDS: WARFARIN SOD 2.5 MG TAB PO SCH (16:22)
[2016-09-20] MEDS ORDERED: LORAZEPAM 0.5 MG TAB PO PRN (17:15)
[2016-09-20] MEDS ORDERED: LORAZEPAM 2 MG/ML 1 ML VIAL IV PRN ×2 (17:15)
[2016-09-20] MEDS ORDERED: LORAZEPAM INJ 0.5 MG in SYRINGE 0.75 ML IV PRN (17:30)
[2016-09-20] MEDS: LORAZEPAM INJ 1 MG in SYRINGE 0.5 ML IV PRN (17:37)
--- NOTE | 2016-09-20 17:58 | PULMONARY FUNCTION TEST ---
PULMONARY FUNCTION INTERPRETATION: 1. Spirometry: Severe obstructive ventilatory disease with an FEV1 of 38%. 2. Lung volumes: Hyperinflation with total lung capacity of 159% and RV of 222%. 3. Diffusion capacity: 127% predicted. 4. The patient noted for severe obstructive ventilatory disease. 5. Bronchodilator treatment: The patient had significant reversibility based off FVC standards. 6. Report is based of BTS standards.
[2016-09-20] MEDS: TAMSULOSIN HCL 0.4 MG CAP PO SCH (20:54)
[2016-09-20] MEDS: PAROXETINE 20 MG TAB PO SCH (20:54)
[2016-09-20] MEDS: INSULIN GLARGINE SOLOSTAR 100 UNITS/ML 3 ML PEN SC SCH (20:56)
[2016-09-21] VITALS (12 sets, daily range): BP systolic 113–134; BP diastolic 75–86; PULSE 6–104; TEMP 36.1–36.6; O2SAT 91–96
[2016-09-21] MEDS: LORAZEPAM INJ 1 MG in SYRINGE 0.5 ML IV PRN ×2 (00:15→21:45)
[2016-09-21 06:15] LABS: HEMATOCRIT 27.8 % (42-52); MEAN CELL VOLUME 79.9 fL (80-100); MEAN CORPUSCULAR HEMOGLOBIN 23.6 pg (25-34); MEAN CORPUSCULAR HGB CONC 29.5 g/dl (32-36); MEAN PLATELET VOLUME 10.1 fL (7.4-10.4); PLATELET COUNT 221 K/uL (130-400); RED BLOOD COUNT 3.48 M/uL (4.7-6.1); WHITE BLOOD COUNT 5.61 K/uL (4.8-10.8)
[2016-09-21] MEDS: LEVOTHYROXINE 25 MCG TAB PO SCH ×2 (06:22→08:04)
[2016-09-21] MEDS: SUCRALFATE 1 GM/10 ML UDC PO SCH ×4 (06:22→20:34)
[2016-09-21 06:24] LABS: INR 3.4 (0.9-1.1); PROTHROMBIN TIME (PATIENT) 38.4 SECONDS (9.0-12.0)
[2016-09-21] MEDS: INSULIN ASPART 100 UNITS/ML 3 ML PEN SC SCH ×4 (06:30→20:41)
[2016-09-21 06:45] LABS: BUN/CREATININE RATIO 22.4 (10-20); CALCIUM 8.6 mg/dl (8.5-10.1); CREATININE 0.7 mg/dl (0.60-1.40); POTASSIUM 3.5 mmol/L (3.5-5.1)
[2016-09-21] MEDS: BUDESONIDE 0.5 MG/2 ML VIAL (PULMICORT) INH SCH ×2 (07:36→19:24)
[2016-09-21] MEDS: ALBUT/IPRATROP 3MG/0.5MG NEB 3 ML VIAL INH SCH ×4 (07:36→23:15)
[2016-09-21] MEDS: CYANOCOBALAMIN 500 MCG TAB (VIT B-12) PO SCH (08:04)
[2016-09-21] MEDS: FUROSEMIDE INJ 80 MG in SYRINGE 0 ML IV SCH ×3 (08:04→23:47)
[2016-09-21] MEDS: CARVEDILOL 12.5 MG TAB PO SCH ×2 (08:05→20:32)
--- NOTE | 2016-09-21 08:38 | Progress Note ---
Subjective Date of Service: Sep 21, 2016. Subjective this pt admits to some depression, still looking for rehab, no new issues or focal events Problem List Medical Problems: (1) Anemia Status: Acute (2) COPD exacerbation Status: Acute (3) Hyperglycemia Status: Acute (4) Pneumonia Status: Acute (5) Subtherapeutic international normalized ratio (INR) Status: Acute Review of Systems Constitutional: No chills, No fever, No weakness Respiratory: + cough, + dyspnea on exertion, + shortness of breath, + sputum Cardiac: + edema, No chest pain Abdomen: No diarrhea, No nausea, No pain, No vomiting Neurologic: + numbness/tingling, + weakness, No memory loss Psychiatric: No anhedonism, No depression symptoms Objective Vital Signs Date Time Temp Pulse Resp B/P Pulse Ox O2 Delivery O2 Flow Rate FiO2 09/21/16 07:42 36.4 96 18 113/75 92 Nasal Cannula 2.0 09/21/16 00:12 36.4 100 18 115/77 92 Nasal Cannula 2.0 09/21/16 00:00 95 Nasal Cannula 2.0 09/20/16 20:47 88 128/79 09/20/16 19:35 111 20 95 Nasal Cannula 2.0 09/20/16 16:11 105 20 94 Nasal Cannula 2.0 09/20/16 16:05 36.8 93 18 127/76 98 Nasal Cannula 2.0 09/20/16 16:00 93 Nasal Cannula 2.0 09/20/16 14:16 92 18 97 Nasal Cannula 2.0 09/20/16 11:42 93 20 96 Nasal Cannula 2.0 Physical Exam General Appearance: WD/WN, + moderate distress Neck: supple, no JVD Respiratory/Chest: chest non-tender, + decreased breath sounds, + accessory muscle use, + rhonchi Cardiovascular: regular rate, rhythm, no murmur Abdomen: normal bowel sounds, non tender, soft Extremities: + pedal edema, + swelling Neurologic/Psychiatric: alert, oriented x 3 Laboratory Results Last 24 Hours Test 09/20/16 12:06 09/20/16 16:42 09/20/16 20:03 09/21/16 05:30 Bedside Glucose 222 mg/dl 128 mg/dl 213 mg/dl White Blood Count 5.61 K/uL Red Blood Count 3.48 M/uL Hemoglobin 8.2 g/dL Hematocrit 27.8 % Mean Corpuscular Volume 79.9 fL Mean Corpuscular Hemoglobin 23.6 pg Mean Corpuscular Hemoglobin Concent 29.5 g/dl RDW Standard Deviation 47.7 fL RDW Coefficient of Variation 16.3 % Platelet Count 221 K/uL Mean Platelet Volume 10.1 fL Prothrombin Time 38.4 SECONDS Prothromb Time International Ratio 3.4 Sodium Level 140 mmol/L Potassium Level 3.5 mmol/L Chloride Level 97 mmol/L Carbon Dioxide Level 39 mmol/L Anion Gap 4.0 mmol/L Blood Urea Nitrogen 16 mg/dl Creatinine 0.70 mg/dl Est Creatinine Clear Calc Drug Dose 104.7 ml/min Estimated GFR () 109.3 Estimated GFR (Non- 94.3 BUN/Creatinine Ratio 22.4 Random Glucose 106 mg/dl Calcium Level 8.6 mg/dl Test 09/21/16 07:24 Bedside Glucose 124 mg/dl Assessment and Plan Aspiration pneumonia, s/p bronchoscopy, repeat bronchoscopy , zosyn, proper aspiration precautions to be maintained, family aware considering hospice [place] an holding pattern awaiting placement, added some ativan for anxiety acute respiratory failure, pt had significant secretions on all bronchoscopies , understands risks of recurrent infection, did speak to palliative care, seems realistic about end of life, whats to consider some rehab prior to going home on probable hospice Dysphagia, once again speech recommends strict aspiration precautions, does fair at bedside Afib rate controlled, continue coreg, coumadin has risen steadily, likely diet related, will hold 09/21 and reduce/restart 09/22 BPH tamsulosin, krueger placed T2DM, basal/bolus, Neuropathy stop lyrica in case is sedating, now pain worse attempt prn oxycodone or consider neurontin Last echo in Feb is low-normal at 55%, likely right heart failure from copd, increase lasix as does have some pleural effusions,tolerating without Bun rise dispostion to subacute rehab, possibly home hospice
[2016-09-21] MEDS: PAROXETINE 20 MG TAB PO SCH (20:34)
[2016-09-21] MEDS: TAMSULOSIN HCL 0.4 MG CAP PO SCH (20:34)
[2016-09-21] MEDS: INSULIN GLARGINE SOLOSTAR 100 UNITS/ML 3 ML PEN SC SCH (20:40)
[2016-09-22] VITALS (9 sets, daily range): BP systolic 121–135; BP diastolic 76–84; PULSE 96–112; TEMP 36.3–36.4; O2SAT 90–98
[2016-09-22] MEDS: SUCRALFATE 1 GM/10 ML UDC PO SCH ×4 (06:07→20:38)
[2016-09-22] MEDS: ALBUT/IPRATROP 3MG/0.5MG NEB 3 ML VIAL INH SCH ×3 (07:28→20:10)
[2016-09-22] MEDS: BUDESONIDE 0.5 MG/2 ML VIAL (PULMICORT) INH SCH ×2 (07:29→20:10)
[2016-09-22] MEDS: FUROSEMIDE INJ 80 MG in SYRINGE 0 ML IV SCH ×3 (08:18→23:52)
[2016-09-22] MEDS: CYANOCOBALAMIN 500 MCG TAB (VIT B-12) PO SCH (08:18)
[2016-09-22] MEDS: CARVEDILOL 12.5 MG TAB PO SCH ×2 (08:18→20:36)
[2016-09-22] MEDS: INSULIN ASPART 100 UNITS/ML 3 ML PEN SC SCH ×4 (09:09→21:30)
--- NOTE | 2016-09-22 10:52 | Progress Note ---
Subjective Date of Service: Sep 22, 2016. Subjective this pt had good night, daughter at bedside. cough persists and neuropathy pain Problem List Medical Problems: (1) Anemia Status: Acute (2) COPD exacerbation Status: Acute (3) Hyperglycemia Status: Acute (4) Pneumonia Status: Acute (5) Subtherapeutic international normalized ratio (INR) Status: Acute Review of Systems Constitutional: No chills, No fever, No weakness Respiratory: + cough, + dyspnea on exertion, + shortness of breath, + sputum, No wheezing Cardiac: No chest pain, No claudication, No edema Abdomen: No diarrhea, No nausea, No pain, No vomiting Male : No dysuria, No urinary frequency Psychiatric: No anhedonism, No depression symptoms Objective Vital Signs Date Time Temp Pulse Resp B/P Pulse Ox O2 Delivery O2 Flow Rate FiO2 09/22/16 08:01 36.3 101 17 135/83 97 Nasal Cannula 2.0 09/22/16 08:00 93 Nasal Cannula 2.0 09/22/16 07:31 103 20 96 Nasal Cannula 3.0 09/22/16 00:00 95 Nasal Cannula 2.0 Humidified Oxygen 09/21/16 23:57 36.1 73 20 134/76 96 3.0 09/21/16 23:15 100 20 95 Nasal Cannula 2.0 09/21/16 20:00 95 Nasal Cannula 2.0 09/21/16 19:24 100 20 94 Nasal Cannula 2.0 09/21/16 16:00 93 Nasal Cannula 2.0 Humidified Oxygen 09/21/16 15:36 36.6 92 18 125/86 96 Nasal Cannula 2.0 09/21/16 14:18 6 20 91 Nasal Cannula 2.0 Physical Exam General Appearance: WD/WN, + moderate distress Neck: supple, no JVD Respiratory/Chest: + respiratory distress, + decreased breath sounds, + accessory muscle use Cardiovascular: regular rate, rhythm, no murmur Abdomen: normal bowel sounds, non tender, soft Extremities: + pedal edema, + swelling Neurologic/Psychiatric: alert, oriented x 3 Laboratory Results Last 24 Hours Test 09/21/16 12:05 09/21/16 16:31 09/21/16 20:34 09/22/16 07:17 Bedside Glucose 223 mg/dl 178 mg/dl 304 mg/dl 211 mg/dl Assessment and Plan Aspiration pneumonia, s/p bronchoscopy, repeat bronchoscopy 09/16, , zosyn, proper aspiration precautions to be maintained, family aware considering hospice [place] an holding pattern awaiting placement, added some ativan for anxiety with good results acute respiratory failure, pt had significant secretions on all bronchoscopies , understands risks of recurrent infection, did speak to palliative care, seems realistic about end of life, whats to consider some rehab prior to going home on probable hospice Dysphagia, once again speech recommends strict aspiration precautions, does fair at bedside Afib rate controlled, continue coreg, coumadin has risen steadily, likely diet related, will hold 09/21 and reduce/restart 09/22 BPH tamsulosin, krueger placed T2DM, basal/bolus, Neuropathy stop lyrica in case is sedating, now pain worse attempt prn oxycodon try neurontin Last echo in Feb is low-normal at 55%, likely right heart failure from copd, increase lasix as does have some pleural effusions,tolerating without Bun rise dispostion to subacute rehab, possibly home hospice
[2016-09-22] MEDS ORDERED: NURSING VERBAL MED ORDER ONE (15:00)
[2016-09-22] MEDS: WARFARIN SOD 1.25 MG TAB PO SCH (15:58)
[2016-09-22] MEDS: LORAZEPAM INJ 1 MG in SYRINGE 0.5 ML IV PRN (15:58)
[2016-09-22] MEDS: OXYCODONE HCL IR 5 MG TAB (IMMEDIATE RELEASE) PO PRN (16:44)
[2016-09-22] MEDS: GABAPENTIN 400 MG CAP PO SCH (20:38)
[2016-09-22] MEDS: PAROXETINE 20 MG TAB PO SCH (20:39)
[2016-09-22] MEDS: TAMSULOSIN HCL 0.4 MG CAP PO SCH (20:39)
[2016-09-22] MEDS: INSULIN GLARGINE SOLOSTAR 100 UNITS/ML 3 ML PEN SC SCH (21:29)
[2016-09-23] VITALS (10 sets, daily range): BP systolic 111–124; BP diastolic 67–72; PULSE 71–103; TEMP 36.3–36.6; O2SAT 94–98
[2016-09-23 05:37] LABS: HEMATOCRIT 26.6 % (42-52); MEAN CELL VOLUME 79.4 fL (80-100); MEAN CORPUSCULAR HEMOGLOBIN 23.6 pg (25-34); MEAN CORPUSCULAR HGB CONC 29.7 g/dl (32-36); MEAN PLATELET VOLUME 9.8 fL (7.4-10.4); PLATELET COUNT 196 K/uL (130-400); RED BLOOD COUNT 3.35 M/uL (4.7-6.1); WHITE BLOOD COUNT 5.88 K/uL (4.8-10.8)
[2016-09-23 06:15] LABS: BUN/CREATININE RATIO 24.8 (10-20); CALCIUM 7.8 mg/dl (8.5-10.1); CREATININE 0.66 mg/dl (0.60-1.40); POTASSIUM 4.2 mmol/L (3.5-5.1)
[2016-09-23] MEDS: SUCRALFATE 1 GM/10 ML UDC PO SCH ×4 (06:30→21:38)
[2016-09-23] MEDS: BUDESONIDE 0.5 MG/2 ML VIAL (PULMICORT) INH SCH ×2 (07:37→19:49)
[2016-09-23] MEDS: ALBUT/IPRATROP 3MG/0.5MG NEB 3 ML VIAL INH SCH ×3 (07:37→19:50)
[2016-09-23] MEDS: LEVOTHYROXINE 25 MCG TAB PO SCH (09:22)
[2016-09-23] MEDS: FUROSEMIDE INJ 80 MG in SYRINGE 0 ML IV SCH ×2 (09:28→16:32)
[2016-09-23] MEDS: INSULIN ASPART 100 UNITS/ML 3 ML PEN SC SCH ×4 (09:28→22:08)
[2016-09-23] MEDS: GABAPENTIN 400 MG CAP PO SCH ×2 (09:29→21:38)
[2016-09-23] MEDS: CYANOCOBALAMIN 500 MCG TAB (VIT B-12) PO SCH (09:29)
[2016-09-23] MEDS: POLYETHYLENE (MIRALAX) 17 GM PACK PO SCH (09:29)
[2016-09-23] MEDS: CARVEDILOL 12.5 MG TAB PO SCH ×2 (09:29→21:37)
[2016-09-23 10:48] LABS: ISTAT ALLEN TEST Pass; ISTAT ARTERIAL BLOOD GAS HCO3 35 meq/L (19-24); ISTAT ARTERIAL BLOOD GAS PCO2 49 mmHg (35-46); ISTAT ARTERIAL BLOOD GAS PO2 78 mmHg (80-95); ISTAT ARTERIAL BLOOD GAS pH 7.47 (7.35-7.45); ISTAT CARBON DIOXIDE 37 mEq/l (24-31); ISTAT DELIVERY SYSTEM Cannula; ISTAT SITE R Radial
--- NOTE | 2016-09-23 14:52 | Palliative Care Progress Note ---
Palliative Care Progress Note Date of Service Sep 23, 2016. Subjective Pt evaluation today including: conversation w/ patient, conversation w/ family , physical exam, chart review, conversation w/ desktop support consultant, review of inpatient medication list Pain: 01/06 Voiding: krueger catheter in place -Patient is awake, alert and oriented x4. -C/o pain 01/06 in hands and feet-- requested pain medication from RN. -Noted that gabapentin was started-- appreciate. -Still not able to get OOB. Feeling weak and tired. Not taking in much PO and is aspirating basically everything. Gets SOB with any movement or activity. -Patient states today that he wants to go home on hospice. He no longer wants to attempt rehab and stated, "Hey, maybe I'll have a few good days at home." He told the director of casework today that he is dying. His daughter seems to be on board with taking him home with hospice as well. Referral to be made. -Meeting with the patient and his daughter Edie tomorrow-- time to be decided. Review of Systems Constitutional: + fatigue, + weakness, No chills, No fever ENT: + trouble swallowing Cardiac: No chest pain, No edema Abdomen: No nausea, No pain, No vomiting Male : No problem reported Psychiatric: No anxiety, No depression symptoms Objective Vital Signs Date Time Temp Pulse Resp B/P Pulse Ox O2 Delivery O2 Flow Rate FiO2 09/23/16 08:00 97 Nasal Cannula 2.0 09/23/16 07:37 100 18 97 Nasal Cannula 3.0 09/23/16 07:17 36.6 97 16 111/70 96 3.0 09/23/16 00:49 36.4 103 18 117/67 98 2.0 09/23/16 00:00 95 Nasal Cannula 2.0 Humidified Oxygen 09/22/16 20:39 112 20 123/84 98 Nasal Cannula 3.0 09/22/16 20:10 98 20 90 Nasal Cannula 3.0 09/22/16 20:00 95 Nasal Cannula 2.0 Humidified Oxygen 09/22/16 16:02 36.4 100 18 121/76 98 Nasal Cannula 2.0 09/22/16 16:00 Nasal Cannula 2.0 Physical Exam General Appearance: no apparent distress, + pertinent finding (chronically ill appearing) Neck: no JVD Respiratory/Chest: no accessory muscle use, + crackles, + rhonchi, + pertinent finding (slightly SOB at rest) Cardiovascular: regular rate, rhythm, + normal peripheral pulses Abdomen: normal bowel sounds, non tender, soft Neurologic/Psychiatric: alert, normal mood/affect, oriented x 3 Skin: + pertinent finding (scattered ecchymosis and scabs) Laboratory Results Last 24 Hours Test 09/22/16 16:41 09/22/16 19:44 09/23/16 05:21 09/23/16 08:08 Bedside Glucose 200 mg/dl 235 mg/dl 191 mg/dl White Blood Count 5.88 K/uL Red Blood Count 3.35 M/uL Hemoglobin 7.9 g/dL Hematocrit 26.6 % Mean Corpuscular Volume 79.4 fL Mean Corpuscular Hemoglobin 23.6 pg Mean Corpuscular Hemoglobin Concent 29.7 g/dl RDW Standard Deviation 47.2 fL RDW Coefficient of Variation 16.2 % Platelet Count 196 K/uL Mean Platelet Volume 9.8 fL Sodium Level 136 mmol/L Potassium Level 4.2 mmol/L Chloride Level 96 mmol/L Carbon Dioxide Level 38 mmol/L Anion Gap 2.0 mmol/L Blood Urea Nitrogen 16 mg/dl Creatinine 0.66 mg/dl Est Creatinine Clear Calc Drug Dose 111.0 ml/min Estimated GFR () 111.9 Estimated GFR (Non- 96.6 BUN/Creatinine Ratio 24.8 Random Glucose 173 mg/dl Calcium Level 7.8 mg/dl Test 09/23/16 10:32 09/23/16 11:52 Blood Gas Sample Site R Radial Bedside Blood Gas pH (LAB) 7.47 Bedside Blood Gas pCO2 (LAB) 49 mmHg Bedside Blood Gas pO2 (LAB) 78 mmHg Bedside Blood Gas HCO3 (LAB) 35 meq/L Bedside Blood Gas Total CO2 37 mEq/l Bedside Blood Gas Base Excess (LAB) 11.0 meq/L Bedside Blood Gas O2 Saturation 96.0 % Kranthi Test Pass Oxygen Delivery Device Cannula Bedside Glucose 160 mg/dl Assessment and Plan Problem list: Weakness/ambulatory dysfunction Pain, hands and feet Dysphagia Aspiration pneumonia 2/2 above DM Neuropathy Goals of care (Z51.5) Palliative care plan: discussed with patient and Dr. Poon -Home with hospice, referral to be made by director of casework. -DNR/DNI per patient's wishes. I discussed this with Dr. Poon. -Continue nebulizer treatments PRN at home. -Lasix needs to be converted to PO from IV. -Would recommend discontinuing Roxicodone, start fentanyl patch 12mcg/hr Q72h, please order Roxanol 5-10mg Q2h PO PRN for pain or SOB for discharge. Palliative Performance Scale: 30 % Discharge planning: home with Hospice
[2016-09-23] MEDS: OXYCODONE HCL IR 5 MG TAB (IMMEDIATE RELEASE) PO PRN (14:55)
--- NOTE | 2016-09-23 14:58 | Progress Note ---
Subjective Date of Service: Sep 23, 2016. Subjective Pt evaluation today including: conversation w/ patient, physical exam, chart review, lab review Problem List Medical Problems: (1) Anemia Status: Acute (2) COPD exacerbation Status: Acute (3) Hyperglycemia Status: Acute (4) Pneumonia Status: Acute (5) Subtherapeutic international normalized ratio (INR) Status: Acute Review of Systems ROS was unobtainable as patient is drowsy Medications Current Inpatient Medications Medications (Trade) Dose Ordered Sig/Sujatha Route Start Time Stop Time Status Last Admin Dose Admin Acetaminophen (Tylenol Tab) 650 mg Q4H PRN PO 09/09/16 19:30 10/09/16 19:29 09/19/16 20:16 650 MG Nitroglycerin (Nitrostat Tab) 0.4 mg UD PRN SL 09/09/16 19:30 10/09/16 19:29 09/19/16 20:53 0.4 MG Budesonide (Pulmicort Respules 0.5MG/ 2ML Neb Soln) 0.5 mg BIDR INH 09/09/16 20:00 10/09/16 19:59 09/23/16 07:37 0.5 MG Carvedilol (Coreg Tab) 12.5 mg BID PO 09/09/16 21:00 10/10/16 20:59 09/23/16 09:29 12.5 MG Cyanocobalamin (Vitamin B-12 Tab) 500 mcg DAILY PO 09/10/16 09:00 10/10/16 08:59 09/23/16 09:29 500 MCG Levothyroxine Sodium (Synthroid Tab) 25 mcg DAILYBB PO 09/10/16 06:00 10/10/16 05:59 09/23/16 09:22 25 MCG Magnesium Hydroxide (Milk Of Magnesia Susp) 30 ml HS PRN PO 09/09/16 19:30 10/09/16 19:29 09/21/16 16:46 30 ML Paroxetine HCl (pAXil TAB) 20 mg HS PO 09/09/16 21:00 10/09/16 20:59 09/22/16 20:39 20 MG Sodium Biphosphate/ Sodium Phosphate (Fleet Enema) 10 ml DAILY PRN VT 09/09/16 19:30 10/09/16 19:29 Sucralfate (Carafate Susp) 1 gm ACHS PO 09/09/16 21:00 10/09/16 20:59 09/22/16 20:38 1 GM Tamsulosin HCl (Flomax Cap) 0.4 mg HS PO 09/09/16 21:00 10/09/16 20:59 09/22/16 20:39 0.4 MG Ondansetron HCl (Zofran Inj) 4 mg Q6H PRN IV 09/09/16 19:30 10/09/16 19:29 Glucose (Glucose 40% Gel) UD PRN PO 09/09/16 19:30 10/09/16 19:29 09/12/16 12:16 15 GM Glucose (Glucose Chew Tab) 1 tabs UD PRN PO 09/09/16 19:30 10/09/16 19:29 Dextrose (Dextrose 50% 50ML Syringe) 50 ml UD PRN IV 09/09/16 19:30 10/09/16 19:29 09/12/16 14:38 50 ML Glucagon (Glucagon Inj) 1 mg UD PRN SQ 09/09/16 19:30 10/09/16 19:29 Albuterol/ Ipratropium (Duoneb) 3 ml TIDR INH 09/10/16 15:00 10/10/16 14:59 09/23/16 07:37 3 ML Albuterol/ Ipratropium (Duoneb) 3 ml Q2H PRN INH 09/10/16 09:45 10/10/16 09:44 09/20/16 11:42 3 ML Heparin Sodium (Porcine) (Heparin 10 Unit/ ml 5 ml Flush) 5 ml PRN PRN FLUSH 09/13/16 23:45 10/13/16 23:44 09/23/16 13:57 5 ML Insulin Aspart (novoLOG ASPART) SLIDING SCALE G... ACHS SC 09/14/16 16:15 10/14/16 16:14 09/23/16 13:38 1 UNITS Insulin Glargine 12 unit HS SC 09/15/16 21:00 10/15/16 20:59 09/22/16 21:29 12 UNIT Al Hydroxide/Mg Hydroxide 72 ml/ Lidocaine HCl 24 ml/Barcode 1 ea Q8H PRN PO 09/17/16 13:00 10/17/16 12:59 Furosemide/Syringe (Lasix Inj/ Syringe) 8 ml @ 4 mls/min Q8H IV 09/19/16 16:00 10/19/16 15:59 09/23/16 09:28 4 MLS/MIN Oxycodone HCl (Roxicodone Immediate Rel Tab) 10 mg Q6H PRN PO 09/20/16 12:30 10/04/16 12:29 09/22/16 16:44 10 MG Lorazepam 0.5 mg 0.5 mg Q6 PRN PO 09/20/16 17:15 10/20/16 17:14 Lorazepam 0.5 mg/ Syringe 1 ml @ 1 mls/min Q4H PRN IV 09/20/16 17:30 10/20/16 17:29 09/23/16 00:49 1 MLS/MIN Lorazepam/Syringe (Ativan Inj/ Syringe) 1 ml @ 1 mls/min Q4H PRN IV 09/20/16 17:30 10/20/16 17:29 09/22/16 15:58 1 MLS/MIN Warfarin Sodium (Coumadin Tab) 1.25 mg DAILY@16 PO 09/22/16 16:00 10/22/16 15:59 09/22/16 15:58 1.25 MG Gabapentin (Neurontin Cap) 400 mg BID PO 09/22/16 20:00 10/22/16 19:59 09/23/16 09:29 400 MG Polyethylene (Miralax Powder Packet) 17 gm QAM PO 09/23/16 08:00 10/23/16 07:59 09/23/16 09:29 17 GM Objective Vital Signs Date Time Temp Pulse Resp B/P Pulse Ox O2 Delivery O2 Flow Rate FiO2 09/23/16 08:00 97 Nasal Cannula 2.0 09/23/16 07:37 100 18 97 Nasal Cannula 3.0 09/23/16 07:17 36.6 97 16 111/70 96 3.0 09/23/16 00:49 36.4 103 18 117/67 98 2.0 09/23/16 00:00 95 Nasal Cannula 2.0 Humidified Oxygen 09/22/16 20:39 112 20 123/84 98 Nasal Cannula 3.0 09/22/16 20:10 98 20 90 Nasal Cannula 3.0 09/22/16 20:00 95 Nasal Cannula 2.0 Humidified Oxygen 09/22/16 16:02 36.4 100 18 121/76 98 Nasal Cannula 2.0 09/22/16 16:00 Nasal Cannula 2.0 Physical Exam General Appearance: + mild distress, + obese Eyes: normal inspection, EOMI ENT: hearing grossly normal, TMs normal Neck: supple Respiratory/Chest: chest non-tender, no respiratory distress, + crackles, + rales Cardiovascular: regular rate, rhythm, no edema, no gallop, + systolic murmur Abdomen: normal bowel sounds, non tender, soft Extremities: normal range of motion, non-tender, normal inspection, no pedal edema Neurologic/Psychiatric: cold reduction roller II-XII nml as tested, no motor/sensory deficits, + pertinent finding (drowsy / confused) Skin: normal color, warm/dry, no rash Laboratory Results Last 24 Hours Test 09/22/16 16:41 09/22/16 19:44 09/23/16 05:21 09/23/16 08:08 Bedside Glucose 200 mg/dl 235 mg/dl 191 mg/dl White Blood Count 5.88 K/uL Red Blood Count 3.35 M/uL Hemoglobin 7.9 g/dL Hematocrit 26.6 % Mean Corpuscular Volume 79.4 fL Mean Corpuscular Hemoglobin 23.6 pg Mean Corpuscular Hemoglobin Concent 29.7 g/dl RDW Standard Deviation 47.2 fL RDW Coefficient of Variation 16.2 % Platelet Count 196 K/uL Mean Platelet Volume 9.8 fL Sodium Level 136 mmol/L Potassium Level 4.2 mmol/L Chloride Level 96 mmol/L Carbon Dioxide Level 38 mmol/L Anion Gap 2.0 mmol/L Blood Urea Nitrogen 16 mg/dl Creatinine 0.66 mg/dl Est Creatinine Clear Calc Drug Dose 111.0 ml/min Estimated GFR () 111.9 Estimated GFR (Non- 96.6 BUN/Creatinine Ratio 24.8 Random Glucose 173 mg/dl Calcium Level 7.8 mg/dl Test 09/23/16 10:32 09/23/16 11:52 09/23/16 14:47 Blood Gas Sample Site R Radial Bedside Blood Gas pH (LAB) 7.47 Bedside Blood Gas pCO2 (LAB) 49 mmHg Bedside Blood Gas pO2 (LAB) 78 mmHg Bedside Blood Gas HCO3 (LAB) 35 meq/L Bedside Blood Gas Total CO2 37 mEq/l Bedside Blood Gas Base Excess (LAB) 11.0 meq/L Bedside Blood Gas O2 Saturation 96.0 % Kranthi Test Pass Oxygen Delivery Device Cannula Bedside Glucose 160 mg/dl Assessment and Plan 71-year-old male admitted for progressive hypoxia and left lower lobe pneumonia s/p recent hospital admission for CHF and thoracentesis / transudate. last admission video swallow suggested aspiration to thin liquids. Aspiration pneumonia, s/p bronchoscopy, repeat bronchoscopy , zosyn, proper aspiration precautions to be maintained, family aware considering hospice [place] an holding pattern awaiting placement, added some ativan for anxiety with good results Change in mental status on exam, likely secondary to ativan, ABgs were normal acute hypoxic respiratory failure, likely from aspiration pneumonia Dysphagia, once again speech recommends strict aspiration precautions, does fair at bedside Afib rate controlled, continue coreg, coumadin has risen steadily, likely diet related, will hold 09/21 and reduce/restart 09/22 BPH tamsulosin, krueger placed T2DM, basal/bolus, Neuropathy stop lyrica in case is sedating, now pain worse attempt prn oxycodon try neurontin Last echo in Feb is low-normal at 55%, likely right heart failure from copd, increase lasix as does have some pleural effusions,tolerating without Bun rise dispostion to subacute rehab, possibly home hospice
--- NOTE | 2016-09-23 15:22 | PULMONARY PROGRESS NOTE ---
DATE: 09/23/2016 TIME: 2:45 p.m. SUBJECTIVE: The patient is being seen by myself for the first time. He has been in the hospital for 2 weeks. Records were reviewed. The patient indicates he is feeling overall much better. His appetite has improved a lot. There was a family member present who agreed with the above assessment. He is still coughing some but not nearly as bad as he had been. He also feels less short of breath than he had been. He still has a hard time clearing out secretions. He is not having any chest pains. OBJECTIVE: GENERAL: The patient seems fairly comfortable. Temperature is 36.6. There has been no fever for several days at least. HEENT: Mouth exam is unremarkable. VITAL SIGNS: Heart rate was 100. The rhythm was irregular. Blood pressure is 111/70. Oxygen saturation is 97% on 3 liters. CHEST: Respiratory rate was 18 breaths per minute and not labored. The breath sounds on the left were modestly decreased in the lower lung rodriguez. No wheezing was heard. The patient has a catheter in place. LABORATORY DATA: White count today is 5.88. Hemoglobin is only 7.9. MCV, MCH, and MCHC were all low. Platelets were 196,000. Blood gas done today showed a pH of 7.47 with a pCO2 of 49 and a pO2 of 78. This was done with a cannula but the amount was unspecified. Electrolytes show sodium 136, potassium 4.2, chloride 96, bicarb 38. BUN was 16 with a creatinine of 0.66. IMPRESSIONS: 1. Aspiration pneumonia. 2. Atelectasis, left lung. 3. Severe chronic obstructive pulmonary disease. 4. Atrial fibrillation. COMMENTS AND RECOMMENDATIONS: The patient indicates he is doing better. He states he thinks he will be getting a hospice nurse soon. Obviously, he has a very long course. His family member indicated he has been in the hospital most of the time for the last 4 months. Respiratory santamaria, he is fairly stable. He has already had 3 bronchoscopies this hospital stay. I will sign off for now but will be happy to see him again if requested.
[2016-09-23] MEDS: WARFARIN SOD 1.25 MG TAB PO SCH (16:31)
[2016-09-23] MEDS: ALBUT/IPRATROP 3MG/0.5MG NEB 3 ML VIAL INH PRN (17:02)
[2016-09-23] MEDS: TAMSULOSIN HCL 0.4 MG CAP PO SCH (21:38)
[2016-09-23] MEDS: PAROXETINE 20 MG TAB PO SCH (21:39)
[2016-09-23] MEDS: INSULIN GLARGINE SOLOSTAR 100 UNITS/ML 3 ML PEN SC SCH (22:09)
[2016-09-24] VITALS (9 sets, daily range): BP systolic 107–135; BP diastolic 59–83; PULSE 63–112; TEMP 36.4–36.6; O2SAT 91–96
[2016-09-24] MEDS: FUROSEMIDE INJ 80 MG in SYRINGE 0 ML IV SCH ×4 (00:29→23:47)
[2016-09-24] MEDS: ALBUT/IPRATROP 3MG/0.5MG NEB 3 ML VIAL INH SCH ×3 (07:43→20:24)
[2016-09-24] MEDS: BUDESONIDE 0.5 MG/2 ML VIAL (PULMICORT) INH SCH ×2 (07:43→20:24)
[2016-09-24 08:04] LABS: BASO % 0.4 %; BASO ABS # 0.02 K/uL (0-0.2); EOS % 4.5 %; HEMATOCRIT 25.5 % (42-52); LYMPH % 17.7 %; LYMPH ABS # 0.98 K/uL (1.2-3.4); MEAN CORPUSCULAR HEMOGLOBIN 23.3 pg (25-34); MEAN CORPUSCULAR HGB CONC 30.2 g/dl (32-36); MEAN PLATELET VOLUME 9.2 fL (7.4-10.4); MONO % 17.4 %; PLATELET COUNT 179 K/uL (130-400); RED BLOOD COUNT 3.31 M/uL (4.7-6.1); WHITE BLOOD COUNT 5.53 K/uL (4.8-10.8)
[2016-09-24] MEDS: INSULIN ASPART 100 UNITS/ML 3 ML PEN SC SCH ×4 (08:14→21:55)
[2016-09-24] MEDS: SUCRALFATE 1 GM/10 ML UDC PO SCH ×4 (08:21→21:53)
[2016-09-24] MEDS: CYANOCOBALAMIN 500 MCG TAB (VIT B-12) PO SCH (08:21)
[2016-09-24] MEDS: POLYETHYLENE (MIRALAX) 17 GM PACK PO SCH (08:21)
[2016-09-24] MEDS: GABAPENTIN 400 MG CAP PO SCH ×2 (08:21→21:52)
[2016-09-24] MEDS: CARVEDILOL 12.5 MG TAB PO SCH ×2 (08:21→21:53)
[2016-09-24] MEDS: LEVOTHYROXINE 25 MCG TAB PO SCH (08:22)
[2016-09-24 08:31] LABS: BUN/CREATININE RATIO 31.4 (10-20); CALCIUM 8.3 mg/dl (8.5-10.1); CREATININE 0.56 mg/dl (0.60-1.40); MAGNESIUM 2.1 mg/dl (1.8-2.4)
[2016-09-24 08:34] LABS: ALB/GLOB RATIO 0.7 (0.9-2); PHOSPHORUS 3.3 mg/dl (2.5-4.9)
[2016-09-24 08:57] LABS: COMPLETE YES; GIANT PLATELETS 2+; HYPOCHROMIA PRESENT; MICROCYTOSIS PRESENT
[2016-09-24] MEDS ORDERED: NURSING VERBAL MED ORDER ONE (11:00)
[2016-09-24 12:06] LABS: INR 1.9 (0.9-1.1); PROTHROMBIN TIME (PATIENT) 20.8 SECONDS (9.0-12.0)
[2016-09-24] MEDS: OXYCODONE HCL IR 5 MG TAB (IMMEDIATE RELEASE) PO PRN (14:00)
[2016-09-24] MEDS: WARFARIN SOD 1.25 MG TAB PO SCH (16:32)
--- NOTE | 2016-09-24 17:57 | Progress Note ---
Subjective Date of Service: Sep 24, 2016. Subjective Pt evaluation today including: conversation w/ patient, conversation w/ family , physical exam, chart review, lab review, review of inpatient medication list Problem List Medical Problems: (1) Anemia Status: Acute (2) COPD exacerbation Status: Acute (3) Hyperglycemia Status: Acute (4) Pneumonia Status: Acute (5) Subtherapeutic international normalized ratio (INR) Status: Acute Review of Systems Constitutional: No chills, No fatigue, No fever, No problem reported, No see HPI, No sweats, No weakness, No weight loss Eyes: No diplopia, No discharge, No eye pain, No problem reported, No redness, No see HPI, No worsening of vision ENT: No dental problems, No hearing loss, No nasal symptoms, No problem reported, No see HPI, No sore throat, No tinnitus, No trouble swallowing, No unusual epistaxis Respiratory: + shortness of breath Cardiac: No PND, No chest pain, No claudication, No edema, No orthopnea, No palpitations, No problem reported, No see HPI Abdomen: No GI bleeding, No constipation, No diarrhea, No nausea, No pain, No problem reported, No see HPI, No vomiting Musculoskeletal: No calf pain, No joint pain, No muscle pain, No problem reported, No see HPI, No swelling Male : No dysuria, No hematuria, No incontinence, No nocturia more than once/ night, No problem reported, No see HPI, No sexual dysfunction, No slowing stream , No urinary frequency Neurologic: No balance problems, No memory loss, No numbness/tingling, No paralysis, No problem reported, No see HPI, No vertigo, No weakness Psychiatric: No anhedonism, No anxiety, No depression symptoms, No insomnia, No problem reported, No see HPI, No substance abuse Heme: No abnormal bleeding/bruising, No clotting problems, No night sweats, No problem reported, No see HPI, No swollen lymph nodes Endo: No excessive thirst, No excessive urination, No fatigue, No problem reported, No see HPI Skin: No bleeding, No color change, No itch, No new/changing skin lesions, No problem reported, No rash, No see HPI Objective Vital Signs Date Time Temp Pulse Resp B/P Pulse Ox O2 Delivery O2 Flow Rate FiO2 09/24/16 17:20 36.6 109 20 109/72 96 Nasal Cannula 2.0 09/24/16 16:00 Nasal Cannula 2.0 09/24/16 14:55 94 Nasal Cannula 2.0 09/24/16 14:14 82 18 96 Nasal Cannula 2.0 09/24/16 08:20 106 134/83 09/24/16 08:19 36.4 88 16 111/71 91 Nasal Cannula 3.0 09/24/16 08:04 Nasal Cannula 2.0 09/24/16 07:47 91 18 95 Nasal Cannula 3.0 09/24/16 00:00 95 Nasal Cannula 2.0 Humidified Oxygen 09/24/16 00:00 36.4 101 20 113/65 95 3.0 09/23/16 20:00 95 Nasal Cannula 2.0 Humidified Oxygen 09/23/16 19:50 99 18 95 Nasal Cannula 3.0 Physical Exam General Appearance: no apparent distress Eyes: normal inspection, EOMI ENT: normal ENT inspection, hearing grossly normal, pharynx normal Neck: supple, no adenopathy, thyroid normal Respiratory/Chest: chest non-tender, no accessory muscle use, + decreased breath sounds, + rales Cardiovascular: regular rate, rhythm, no edema, no gallop, no JVD, no murmur Abdomen: normal bowel sounds, non tender, soft Extremities: normal range of motion, non-tender, normal inspection, no pedal edema 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, no motor/sensory deficits, alert, normal mood/affect, oriented x 3 Skin: normal color, warm/dry, no rash Laboratory Results Last 24 Hours Test 09/23/16 20:25 09/24/16 07:55 09/24/16 08:03 09/24/16 11:30 Bedside Glucose 194 mg/dl 106 mg/dl White Blood Count 5.53 K/uL Red Blood Count 3.31 M/uL Hemoglobin 7.7 g/dL Hematocrit 25.5 % Mean Corpuscular Volume 77.0 fL Mean Corpuscular Hemoglobin 23.3 pg Mean Corpuscular Hemoglobin Concent 30.2 g/dl Platelet Count 179 K/uL Mean Platelet Volume 9.2 fL Neutrophils (%) (Auto) 60.0 % Lymphocytes (%) (Auto) 17.7 % Monocytes (%) (Auto) 17.4 % Eosinophils (%) (Auto) 4.5 % Basophils (%) (Auto) 0.4 % Neutrophils # (Auto) 3.32 K/uL Lymphocytes # (Auto) 0.98 K/uL Monocytes # (Auto) 0.96 K/uL Eosinophils # (Auto) 0.25 K/uL Basophils # (Auto) 0.02 K/uL RDW Standard Deviation 45.7 fL RDW Coefficient of Variation 16.0 % Immature Granulocyte % (Auto) 0.0 % Immature Granulocyte # (Auto) 0.00 K/uL Giant Platelets 2+ Hypochromasia PRESENT Microcytosis PRESENT Sodium Level 136 mmol/L Potassium Level 4.0 mmol/L Chloride Level 94 mmol/L Carbon Dioxide Level 37 mmol/L Anion Gap 5.0 mmol/L Blood Urea Nitrogen 18 mg/dl Creatinine 0.56 mg/dl Est Creatinine Clear Calc Drug Dose 130.9 ml/min Estimated GFR () 119.8 Estimated GFR (Non- 103.3 BUN/Creatinine Ratio 31.4 Random Glucose 93 mg/dl Lactic Acid Level 0.6 mmol/L Calcium Level 8.3 mg/dl Phosphorus Level 3.3 mg/dl Magnesium Level 2.1 mg/dl Total Bilirubin 0.3 mg/dl Aspartate Amino Transf (AST/SGOT) 11 U/L Alanine Aminotransferase (ALT/SGPT) 12 U/L Alkaline Phosphatase 158 U/L Total Protein 6.3 gm/dl Albumin 2.5 gm/dl Globulin 3.8 gm/dl Albumin/Globulin Ratio 0.7 Prothrombin Time 20.8 SECONDS Prothromb Time International Ratio 1.9 Test 09/24/16 11:53 09/24/16 16:38 Bedside Glucose 236 mg/dl 210 mg/dl Assessment and Plan 71-year-old male admitted for progressive hypoxia and left lower lobe pneumonia s/p recent hospital admission for CHF and thoracentesis / transudate. video swallow showed no aspiration Aspiration pneumonia, s/p bronchoscopy, repeat bronchoscopy 09/16, , zosyn, proper aspiration precautions to be maintained, family and patient would like to be discharged on hospice Change in mental status on exam,/ metabolic encephalopathy likely secondary to pneumonia, ativan, ABgs were normal acute hypoxic respiratory failure, likely from aspiration pneumonia Dysphagia, once again speech recommends strict aspiration precautions, as his video swallow showed no aspiration, he was restarted on thin liquid Afib rate controlled, continue coreg, coumadin has risen steadily, likely diet related, will hold 09/21 and reduce/restart 09/22 BPH tamsulosin, remove krueger T2DM, basal/bolus, Neuropathy stop lyrica in case is sedating, now pain worse attempt prn oxycodon try neurontin Last echo in Feb is low-normal at 55%, likely right heart failure from copd, increase lasix as does have some pleural effusions,tolerating without Bun rise, continue on current lasix dose disposition to home hospice Discharge planning: home with Hospice
[2016-09-24] MEDS: FERROUS SULFATE 325 MG TAB PO SCH (21:52)
[2016-09-24] MEDS: PAROXETINE 20 MG TAB PO SCH (21:53)
[2016-09-24] MEDS: INSULIN GLARGINE SOLOSTAR 100 UNITS/ML 3 ML PEN SC SCH (21:54)
[2016-09-24] MEDS: TAMSULOSIN HCL 0.4 MG CAP PO SCH (22:00)
[2016-09-25 00:25] VITALS: BP 134/80; PULSE 97; TEMP 36.8; O2SAT 99
[2016-09-25 05:46] LABS: BASO % 0.6 %; BASO ABS # 0.03 K/uL (0-0.2); EOS % 3.3 %; HEMATOCRIT 26.3 % (42-52); IG% 0.2 %; LYMPH % 19.4 %; MEAN CELL VOLUME 78.7 fL (80-100); MEAN CORPUSCULAR HEMOGLOBIN 23.4 pg (25-34); MEAN CORPUSCULAR HGB CONC 29.7 g/dl (32-36); MEAN PLATELET VOLUME 9.9 fL (7.4-10.4); MONO % 17.7 %; NEUT % 58.8 %; PLATELET COUNT 210 K/uL (130-400); RED BLOOD COUNT 3.34 M/uL (4.7-6.1); WHITE BLOOD COUNT 5.15 K/uL (4.8-10.8)
[2016-09-25 05:52] LABS: INR 1.8 (0.9-1.1); PROTHROMBIN TIME (PATIENT) 19.3 SECONDS (9.0-12.0)
[2016-09-25 06:17] LABS: ALB/GLOB RATIO 0.7 (0.9-2); CALCIUM 8.3 mg/dl (8.5-10.1); COMPLETE YES; CREATININE 0.72 mg/dl (0.60-1.40); GIANT PLATELETS 1+; MAGNESIUM 2.2 mg/dl (1.8-2.4); POLYCHROMASIA 1+; POTASSIUM 3.8 mmol/L (3.5-5.1)
[2016-09-25] MEDS: LEVOTHYROXINE 25 MCG TAB PO SCH (06:39)
[2016-09-25] MEDS: SUCRALFATE 1 GM/10 ML UDC PO SCH ×2 (06:39→11:16)
[2016-09-25] MEDS: FUROSEMIDE INJ 80 MG in SYRINGE 0 ML IV SCH (07:21)
[2016-09-25] MEDS: POLYETHYLENE (MIRALAX) 17 GM PACK PO SCH (07:22)
[2016-09-25] MEDS: CARVEDILOL 12.5 MG TAB PO SCH (07:22)
[2016-09-25] MEDS: CYANOCOBALAMIN 500 MCG TAB (VIT B-12) PO SCH (07:22)
[2016-09-25] MEDS: GABAPENTIN 400 MG CAP PO SCH (07:22)
[2016-09-25] MEDS: FERROUS SULFATE 325 MG TAB PO SCH (07:22)
[2016-09-25] MEDS: INSULIN ASPART 100 UNITS/ML 3 ML PEN SC SCH ×2 (07:31→11:23)
[2016-09-25 07:46] VITALS: BP 98/61; PULSE 84; TEMP 36.6; O2SAT 91
[2016-09-25 07:49] VITALS: PULSE 79; O2SAT 93
[2016-09-25] MEDS: ALBUT/IPRATROP 3MG/0.5MG NEB 3 ML VIAL INH SCH (07:49)
[2016-09-25] MEDS: BUDESONIDE 0.5 MG/2 ML VIAL (PULMICORT) INH SCH (07:49)
[2016-09-25] MEDS ORDERED: FERROUS SULFATE 325 MG TAB PO SCH (08:00)
[2016-09-25] MEDS ORDERED: INSDGIPEN SC (09:45)
[2016-09-25] MEDS ORDERED: NRN400 PO (09:45)
[2016-09-25] MEDS ORDERED: IPRASOL4 INH (09:45)
[2016-09-25] MEDS ORDERED: ATV5 PO (09:45)
[2016-09-25] MEDS ORDERED: PRED-301 PO (09:45)
[2016-09-25] MEDS ORDERED: CMD125 PO (09:45)
[2016-09-25] MEDS ORDERED: FRRS300 PO (09:45)
[2016-09-25] MEDS ORDERED: FURO40TA3 PO (09:45)
--- NOTE | 2016-09-25 09:48 | Discharge Instructions ---
Discharge Instructions Admission Admission Date: Sep 09, 2016 at 17:05 Admission Diagnosis: Aspiration Pneumonia, Hypoxia. Care Plan - Goal(s): Decrease discomfort Care Plan - Instructions: Recommended Home Diet: AHA Phase I (2gmNa/LoCho), Diabetic VTE Core Measure Inpt VTE Proph given/why not?: Unfractionated heparin SQ Laboratory Results Test Results: Hemoglobin A1c Test 07/30/16 22:04 Range/Units Estimated Average Glucose 171 mg/dl Hemoglobin A1c 7.6 H 4.5-5.6 % Yarelis Munoz Recommendations: Call your doctor if: * Temperature above 101 degrees * Pain not relieved by pain medicine ordered * There is increased drainage or redness from any incision * You have any unanswered questions or concerns. Your Doctors Instructions noted above were prepared by provider Zhanna Pineda.
[2016-09-25 10:13] VITALS: BP 98/61; PULSE 79; TEMP 36.6; O2SAT 93
[2016-09-25] MEDS: OXYCODONE HCL IR 5 MG TAB (IMMEDIATE RELEASE) PO PRN (12:58)
[2016-09-25] MEDS ORDERED: MIDAZOLAM HCL 5 MG/ML 1 ML VIAL IV ONE (13:12)
[2016-09-25] MEDS ORDERED: LIDOCAINE HCL 2% LOCAL 50ML VIAL INFIL ONE (13:12)
[2016-09-25] MEDS ORDERED: FENTANYL CITRATE INJ 50 MCG/1 ML 2 ML VIAL IV ONE (13:12)
[2016-09-25] MEDS ORDERED: LIDOCAINE 4% INH SOLN 4 ML BTL ONE (13:12)
--- NOTE | 2016-09-25 15:32 | Discharge Summary ---
Discharge Summary Date of Service Sep 25, 2016. Discharge Summary Admission Date: Sep 09, 2016 at 17:05 Discharge Date: Sep 25, 2016 Discharge Disposition: Home with services Principal Diagnosis: Community acquired pneumonia Problems/Secondary Diagnoses: metabolic encephalopathy due to pneumonia Aspiration pneumonia ruled out likely had HCAP acute hypoxic respiratory failure Afib rate controlled BPH tamsulosin, T2DM, Medication Reconciliation New Medications: Furosemide (Lasix) 40 Mg Tab 80 MG PO TID for 30 Days, #90 TAB Prednisone (Prednisone) 5 Mg Tab 0 PO UD, #1 PKT STERAPRED 5MG 12 DAY Ferrous Sulfate (Ferrous Sulfate) 325 Mg Tab 325 MG PO BID for 30 Days, #60 TAB 1 Refill Gabapentin (Gabapentin) 400 Mg Cap 400 MG PO BID for 30 Days, #60 CAP 1 Refill Ipratropium-Albuterol (Duoneb) 3 Ml Nebu 3 ML INH TIDR for 30 Days, #75 VIAL 7 Refills Lorazepam (Lorazepam) 0.5 Mg Tab 0.5 MG PO Q6 PRN for Anxiety for 30 Days, #60 TAB Warfarin Sod (Coumadin) 1.25 Mg Tab 1.25 MG PO DAILY@16 for 30 Days, #30 TAB 1 Refill Changed Medications: Insulin Glargine (Lantus Solostar) 100 Unit/Ml Inj 12 UNITS SC HS for 30 Days, #1 PEN 1 Refill (Changed from: 24 ; Refills: ) Continued Medications: Acetaminophen Tab (Tylenol) 325 Mg Tab 650 MG PO Q4H PRN for Pain or Fever, TAB Bisacodyl (Dulcolax) 10 Mg Sup 5 MG RE UD, SUP FOR NO BM 4 DAYS Budesonide (Pulmicort Respules 0.5MG/2ML) 0.5 Mg/2 Ml Nebu 2 ML INH BID, EA Carvedilol (Coreg) 12.5 Mg Tab 12.5 MG PO BID, TAB Cyanocobalamin (Vitamin B-12) 500 Mcg Tab 500 MCG PO DAILY, TAB TAKE 2 ( 500MCG) TABLETS BY MOUTH EVERY DAY Insulin Human Regular (Novolin R) 1 Ea Ea SQ ACHS for SLIDING SCALE 151-200=0 UNITS, 201-250=2 UNITS, 251-300=4 UNITS, 301-350=8 UNITS, 351-400=10 UNITS, <60 OR >400 CALL Levothyroxine Sodium (Levothyroxine Sodium) 25 Mcg Tab 1 TAB PO DAILY for 30 Days, #30 TAB 5 Refills Magnesium Hydroxide (Milk Of Magnesia) 30 Ml Susp 30 ML PO HS PRN for Constipation, ML Omeprazole (Prilosec) 20 Mg Capcr 20 MG PO DAILY, CAP Paroxetine (Paxil) 20 Mg Tab 20 MG PO HS, TAB Sodium Phosphate/Biphosphate (Fleet Enema) [place] 1 EA AR DAILY PRN for Constipation, BTL Sucralfate (Carafate) 1 Gm/10 Ml Darya 10 ML PO ACHS for 30 Days, ML Tamsulosin Hcl (Flomax) 0.4 Mg Cap 1 CAP PO HS for 30 Days, CAP 5 Refills Discontinued Medications: Albuterol Sulf (Albuterol Sulfate) 2.5 Mg/3 Ml Nebu 3 ML INH Q4H PRN for SOB/Wheezing Furosemide (Lasix) 20 Mg Tab 60 MG PO DAILY for 15 Days, #45 TAB Take three 20mg tablets, once daily, for a total daily dose of 60mg. Levofloxacin (Levofloxacin) 750 Mg Tab 750 MG PO DAILY@11 for 4 Days, #4 TAB Take every morning at 10am. Prednisone Tab (Prednisone) 10 Mg Tab 10 MG PO DAILY, TAB Warfarin Sod (Coumadin) 2 Mg Tab 2 MG PO DAILY@1600 for 30 Days, #30 TAB Discharge Exam Review of Systems: Constitutional: No chills, No fatigue, No fever, No problem reported, No sweats, No weakness, No weight loss Eyes: No diplopia, No discharge, No eye pain, No problem reported, No redness, No worsening of vision Respiratory: No cough, No dyspnea at rest, No dyspnea on exertion, No hemoptysis, No problem reported, No shortness of breath, No sputum, No wheezing Cardiovascular: No PND, No chest pain, No claudication, No edema, No orthopnea, No palpitations, No problem reported Abdomen: No GI bleeding, No constipation, No diarrhea, No nausea, No pain, No problem reported, No vomiting Musculoskeletal: No calf pain, No joint pain, No muscle pain, No problem reported, No swelling Neurologic: No balance problems, No memory loss, No numbness/tingling, No paralysis, No problem reported, No vertigo, No weakness Psychiatric: No anhedonism, No anxiety, No depression symptoms, No insomnia , No problem reported, No substance abuse Endocrine: No excessive thirst, No excessive urination, No fatigue, No problem reported Hematologic / Lymphatic: No abnormal bleeding/bruising, No clotting problems , No night sweats, No problem reported, No swollen lymph nodes Integumentary: No bleeding, No color change, No itch, No new/changing skin lesions, No problem reported, No rash Physical Exam: General Appearance: WD/WN, no apparent distress Eyes: normal inspection, EOMI ENT: normal ENT inspection, hearing grossly normal Neck: supple Respiratory/Chest: chest non-tender, no respiratory distress, + crackles Cardiovascular: regular rate, rhythm, no edema, no gallop, no JVD, no murmur Abdomen / GI: normal bowel sounds, non tender, soft, no organomegaly, no pulsatile mass Extremities: normal inspection, no calf tenderness, normal capillary refill , no pedal edema 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 this admission aspiration pneumonia was suspected . started on zosyn found to have Change in mental status on exam,/ metabolic encephalopathy likely secondary to pneumonia, ativan, ABgs were normal s/p bronchoscopy, repeat bronchoscopy , cultures were negative lasix was increased to 80mg IV TID switched upon discharge to 80mg po BID video swallow showed no aspiration, so aspiration pneumonia ruled out, likely had HCAP treated with zosyn. speech therapy recommended aspiration precautions metabolic encephalopathy improved he has an indwelling krueger that he refused to remove it, despite that he was started on Flomax due to his severe SOB, TELLO family and patient chose to be discharged on hospice for his Neuropathy stoped lyrica cause he was drowsy, he was started on prn oxycodone and Neurontin instead and appeared to be doing well on that Last echo in Feb is low-normal at 55%, likely right heart failure from copd, today going on hospice and has all of his needed medication to alleviate his breathing, bronchodilators/tapering steroids/lasix etc. Total Time Spent: Greater than 30 minutes This includes examination of the patient, discharge planning, medication reconciliation, and communication with other providers. Discharge Instructions Please refer to the electronic Patient Visit Report (Discharge Instructions) for additional information.
== END 2016-09-25 13:13 | disposition hospice, home (50) | DRG 166 ==
LOC: CANRESERV → ENRESERVTM → ENRESERVDT → C.2T 17:05 → CANBEDREQ 09-11 16:57 → C.MS4W 09-17 13:32
PROVIDERS: ADMIT Hospitalist; ATTEND Internal Medicine
PROC: 0W993ZZ Drainage of Right Pleural Cavity, Percutaneous Approach (ICD-10-PCS; principal; 2016-09-11)
PROC: 0B9F8ZX Drainage of Right Lower Lung Lobe, Via Natural or Artificial Opening Endoscopic, Diagnostic (ICD-10-PCS; 2016-09-12)
PROC: 0B9G8ZX Drainage of Left Upper Lung Lobe, Via Natural or Artificial Opening Endoscopic, Diagnostic (ICD-10-PCS; 2016-09-12)
PROC: 0B9J8ZX Drainage of Left Lower Lung Lobe, Via Natural or Artificial Opening Endoscopic, Diagnostic (ICD-10-PCS; 2016-09-12)
PROC: 0B9D8ZX Drainage of Right Middle Lung Lobe, Via Natural or Artificial Opening Endoscopic, Diagnostic (ICD-10-PCS; 2016-09-12)
PROC: 0B998ZX Drainage of Lingula Bronchus, Via Natural or Artificial Opening Endoscopic, Diagnostic (ICD-10-PCS; 2016-09-16)
PROC: 0B9G8ZX Drainage of Left Upper Lung Lobe, Via Natural or Artificial Opening Endoscopic, Diagnostic (ICD-10-PCS; 2016-09-16)
PROC: 0B9J8ZX Drainage of Left Lower Lung Lobe, Via Natural or Artificial Opening Endoscopic, Diagnostic (ICD-10-PCS; 2016-09-16)
PROC: 0B978ZX Drainage of Left Main Bronchus, Via Natural or Artificial Opening Endoscopic, Diagnostic (ICD-10-PCS; 2016-09-18)
PROC: 0B9J8ZX Drainage of Left Lower Lung Lobe, Via Natural or Artificial Opening Endoscopic, Diagnostic (ICD-10-PCS; 2016-09-18)
DX: J44.0 Chronic obstructive pulmonary disease with (acute) lower respiratory infection (principal); J96.01 Acute respiratory failure with hypoxia; J18.9 Pneumonia, unspecified organism; G93.41 Metabolic encephalopathy; I50.32 Chronic diastolic (congestive) heart failure; J90 Pleural effusion, not elsewhere classified; J44.1 Chronic obstructive pulmonary disease with (acute) exacerbation; Z91.11 Patient's noncompliance with dietary regimen; E11.40 Type 2 diabetes mellitus with diabetic neuropathy, unspecified; Z87.891 Personal history of nicotine dependence; Z79.899 Other long term (current) drug therapy; Z79.01 Long term (current) use of anticoagulants; Z79.4 Long term (current) use of insulin; E03.9 Hypothyroidism, unspecified; I10 Essential (primary) hypertension; K21.9 Gastro-esophageal reflux disease without esophagitis; N40.0 Benign prostatic hyperplasia without lower urinary tract symptoms; E11.51 Type 2 diabetes mellitus with diabetic peripheral angiopathy without gangrene; Z86.73 Personal history of transient ischemic attack (TIA), and cerebral infarction without residual deficits; Z87.19 Personal history of other diseases of the digestive system; Z98.1 Arthrodesis status; G47.30 Sleep apnea, unspecified; I48.2 Chronic atrial fibrillation; E11.649 Type 2 diabetes mellitus with hypoglycemia without coma; E11.65 Type 2 diabetes mellitus with hyperglycemia; K80.20 Calculus of gallbladder without cholecystitis without obstruction; R13.10 Dysphagia, unspecified; F32.9 Major depressive disorder, single episode, unspecified; F41.9 Anxiety disorder, unspecified; R26.9 Unspecified abnormalities of gait and mobility; Z51.5 Encounter for palliative care; E66.9 Obesity, unspecified; Z68.26 Body mass index [BMI] 26.0-26.9, adult; J39.8 Other specified diseases of upper respiratory tract